=== PATIENT | female | born 1950 | race Caucasian/White ===

== ENCOUNTER → 2017-01-27 | Outpatient (CLI) | payer BC ==
--- NOTE | 2017-01-27 16:01 | ECHOCARDIOGRAM REPORT ---
*NOTICE TO RECEIVING REPUBLICAN AGENCY This information is strictly Confidential and protected under [place] law. [place] law prohibits you from making any further disclosure of this information unless further disclosure is expressly permitted by the written consent of the person to whom it pertains or is authorized by law. A general authorization for the release of medical or other information is not sufficient for this purpose. Hospital accepts no responsibility if the information is made available to any other person, INCLUDING THE PATIENT. Interpretation Summary * Name: LAN TURK Study Date: 01/27/2017 01:57 PM BP: 120/70 mmHg * Patient Location: [facility], [place], [facility] HR: 62 * : 1950 (M/d/yyyy) Gender: Female Height: 62 in * Age: 66 yrs Ethnicity: [place] Weight: 172 lb * Ordering Physician: Mychal Hall * Referring Physician: Mychal Hall. * Performed By: Lucy Arrington RCS * * Reason For Study: VALVULAR HEART DISEASE * BSA: 1.8 m2 * -- Conclusions -- * Left ventricular systolic function is normal. * No regional wall motion abnormalities noted. * Ejection Fraction = 65-70%. * There is mild concentric left ventricular hypertrophy. * Diastolic dysfunction, Grade II (pseudonormalization pattern). * There is mild mitral regurgitation. Procedure Details * A complete two-dimensional transthoracic echocardiogram was performed (2D, M-mode, Doppler and color flow Doppler). Left Ventricle * The left ventricle is normal in size. * There is mild concentric left ventricular hypertrophy. * Left ventricular systolic function is normal. * Ejection Fraction = 65-70%. * No regional wall motion abnormalities noted. Right Ventricle * The right ventricle is not well visualized. * The right ventricular systolic function is normal as assessed by tricuspid annular plane systolic excursion (TAPSE) (normal >1.5 cm). Atria * The left atrial size is normal. * Right atrial size is normal. * There is no evidence of atrial septal defect, but resolution does not allow assessment for a patent foramen ovale. Mitral Valve * The mitral valve is grossly normal. * There is no mitral valve stenosis. * There is mild mitral regurgitation. Tricuspid Valve * The tricuspid valve is not well visualized, but is grossly normal. * Significant tricuspid regurgitation is absent. Aortic Valve * The aortic valve is not well visualized. * The aortic valve opens well. * No hemodynamically significant valvular aortic stenosis. * No aortic regurgitation is present. Pulmonic Valve * The pulmonary valve is not well seen, but the Doppler examination is normal without significant regurgitation or stenosis. Great Vessels * The aortic root is normal size. * The pulmonary is not well visualized. Pericardium/Pleural * There is no pericardial effusion. Great Vessels * Normal inferior vena cava size and collapsability with sniff indicates a normal right atrial pressure of 3 mmHg Left Ventricular Diastolic Function * Diastolic dysfunction, Grade II (pseudonormalization pattern). MMode 2D Measurements and Calculations IVSd 1.7 cm IVSs 2.3 cm LVIDd 3.1 cm LVIDs 2.0 cm LVPWd 1.5 cm LVPWs 1.5 cm IVS/LVPW 1.2 FS 36.7 % EDV(Teich) 37.5 ml ESV(Teich) 12.0 ml EF(Teich) 68.1 % EDV(cubed) 29.4 ml ESV(cubed) 7.4 ml EF(cubed) 74.7 % % IVS thick 35.6 % % LVPW thick 5.7 % LV mass(C)d 178.8 grams LV mass(C)dI 99.7 grams/m\S\2 LV mass(C)s 156.6 grams LV mass(C)sI 87.3 grams/m\S\2 SV(Teich) 25.5 ml SI(Teich) 14.2 ml/m\S\2 SV(cubed) 21.9 ml SI(cubed) 12.2 ml/m\S\2 Ao root diam 4.4 cm Ao root area 15.1 cm\S\2 ACS 1.8 cm LA dimension 2.6 cm LA/Ao 0.60 LVOT diam 2.0 cm LVOT area 3.3 cm\S\2 Doppler Measurements and Calculations MV E max claudia 94.4 cm/sec MV A max claudia 78.7 cm/sec MV E/A 1.2 MV P1/2t max claudia 101.2 cm/sec MV P1/2t 83.7 msec MVA(P1/2t) 2.6 cm\S\2 MV dec slope 354.3 cm/sec\S\2 MV dec time 0.22 sec Ao V2 max 121.2 cm/sec Ao max PG 5.9 mmHg Ao max PG (full) 1.6 mmHg DEBRA(V,A) 2.8 cm\S\2 DEBRA(V,D) 2.8 cm\S\2 LV V1 max PG 4.3 mmHg LV V1 max 103.6 cm/sec PA V2 max 94.2 cm/sec PA max PG 3.5 mmHg TR max claudia 216.6 cm/sec
== END | disposition home or self-care (01) ==
LOC: C.CPL 13:34
PROVIDERS: ATTEND Family Medicine
DX: I34.0 Nonrheumatic mitral (valve) insufficiency (principal); I51.7 Cardiomegaly

== ENCOUNTER 2022-11-18 06:08 | Observation (INO) ==
--- NOTE | 2022-10-16 11:12 | PAT Medication Instructions ---
Medication Instructions Date of Service October 16, 2022 Home Medications Medication Instructions Recorded oxycodone 5 mg tablet 5 mg PO Q6H pain #120 tabs 10/09/22 Wheeled Walker #1 ea 10/13/22 allopurinol 100 mg tablet 100 mg PO HS alprazolam 0.5 mg tablet 0.5 mg PO HS antiarthritic combination no.2 900 mg tablet (glucosamine-chondroitin) 450 mg PO BID ascorbate calcium (vitamin C) 500 mg tablet 500 mg PO QAM atorvastatin 10 mg tablet 10 mg PO Q2D cholecalciferol (vitamin D3) 50 mcg (2,000 unit) tablet 50 mcg PO BID coQ10 (ubiquinol) 200 mg capsule 200 mg PO HS diclofenac sodium 75 mg tablet,delayed release 75 mg PO BID multivitamin 1 tab PO QAM omega-3 fatty acids 1,000 mg capsule (Fish Oil Concentrate) 1,000 mg PO HS soy isofla 56 mg-black cohosh 40 mg-green tea,yerba mate 130 mg tablet ([employer]) 1 tab PO QAM telmisartan 80 mg tablet (Micardis) 80 mg PO HS vitamin B complex (B Complex-Vitamin B12 tablet) 1 tab PO QAM acetaminophen 300 mg-codeine 30 mg tablet 1 tab PO Q4H PRN fluticasone propionate 50 mcg/actuation nasal spray,suspension 2 spray intranasal QAM nebivolol 5 mg tablet 5 mg PO QAM spironolactone 25 mg tablet 25 mg PO UD oxycodone 5 mg tablet 5 mg PO Q6H Wheeled Walker calcium carbonate 750 mg PO QAM indapamide 1.25 mg tablet 1.25 mg PO Q2D iodine 150 mcg tablet (Kelp (iodine)) 150 mcg PO QAM levothyroxine 75 mcg tablet (Synthroid) 75 mcg PO QAM magnesium 250 mg tablet 250 mg PO HS pramipexole 0.25 mg tablet 0.25 mg PO HS Continue as directed atorvastatin 10 mg tablet 10 mg PO Q2D ASK your surgeon for instructions diclofenac sodium 75 mg tablet,delayed release 75 mg PO BID STOP taking 2 weeks before surgery antiarthritic combination no.2 900 mg tablet (glucosamine-chondroitin) 450 mg PO BID coQ10 (ubiquinol) 200 mg capsule 200 mg PO HS omega-3 fatty acids 1,000 mg capsule (Fish Oil Concentrate) 1,000 mg PO HS soy isofla 56 mg-black cohosh 40 mg-green tea,yerba mate 130 mg tablet ([employer]) 1 tab PO QAM DO NOT take the morning of surgery ascorbate calcium (vitamin C) 500 mg tablet 500 mg PO QAM cholecalciferol (vitamin D3) 50 mcg (2,000 unit) tablet 50 mcg PO BID multivitamin 1 tab PO QAM vitamin B complex (B Complex-Vitamin B12 tablet) 1 tab PO QAM spironolactone 25 mg tablet 25 mg PO UD calcium carbonate 750 mg PO QAM indapamide 1.25 mg tablet 1.25 mg PO Q2D Take morning of surgery With a small sip of water, OTHERWISE NOTHING TO EAT OR DRINK AFTER MIDNIGHT: acetaminophen 300 mg-codeine 30 mg tablet 1 tab PO Q4H PRN(if needed) fluticasone propionate 50 mcg/actuation nasal spray,suspension 2 spray intranasal QAM nebivolol 5 mg tablet 5 mg PO QAM oxycodone 5 mg tablet 5 mg PO Q6H iodine 150 mcg tablet (Kelp (iodine)) 150 mcg PO QAM levothyroxine 75 mcg tablet (Synthroid) 75 mcg PO QAM Take evening before surgery allopurinol 100 mg tablet 100 mg PO HS alprazolam 0.5 mg tablet 0.5 mg PO HS cholecalciferol (vitamin D3) 50 mcg (2,000 unit) tablet 50 mcg PO BID telmisartan 80 mg tablet (Micardis) 80 mg PO HS acetaminophen 300 mg-codeine 30 mg tablet 1 tab PO Q4H PRN(if needed) oxycodone 5 mg tablet 5 mg PO Q6H magnesium 250 mg tablet 250 mg PO HS pramipexole 0.25 mg tablet 0.25 mg PO HS Other Notes If you have any questions please call us at [phone] or [phone] or [phone] or [phone]
--- NOTE | 2022-10-22 11:27 | Anesthesiology Consultation ---
Date of Service October 22, 2022 Assessment & Plan (1) Encounter for pre-operative examination: - COVID screening: Per assessment on 10/22: No known COVID-19 positive contacts or current COVID-19 related symptoms. Travel screen negative. Patient vaccinated. At surgeon discretion if preop Covid testing being done. - Outpatient joint assessment: Pt currently scheduled for inpatient pathway. If surgeon requests review for outpatient joint pathway, patient is not recommended candidate for outpatient joint program from anesthesia standpoint. - PCP office visit (10/20/22): "Hyponatremia.. This is multifactorial: I believe that use of diclofenac and the diuretics are aggravating this condition and these will be stopped. In addition the chronic pain is most likely triggering syndrome of inappropriate ADH and will need to be treated more aggressively. I am going to consult nephrology to get further input I will increase her pain medication. However I want her to stop the Tylenol with codeine. I want to begin extended release morphine 10 mg twice daily with oxycodone for breakthrough pain.. Osteoarthritis of right hip.. Hopefully this can be surgically repaired in the next week or 2. I would not repeat labs in less than in 5 days.. Chronic kidney disease (CKD) stage G3a/A3, moderately decreased glomerular filtration rate (GFR) between 45-59 mL/min/1.73 square meter and albuminuria creatinine ratio greater than 300 mg/g.. She has been unable to manage her pain without the use of high-dose diclofenac stopping this will be of benefit.. HTN (hypertension).. She will continue telmisartan 80 mg daily and check her blood pressures at home. I may need to increase the dose of these medications short-term" - Preop labs: Pt is having updated blood work done by PCP to reevaluate hyponatremia. Pt requests doing surgeon-ordered preop labs at same time. Patient acceptable risk for surgery pending preop labs (10/28; [facility] Blue Course). Chart Review Chart Review: Patient seen in Pre Admission Testing Teaching & Discussion Pre-Anesthesia Teaching/Discussion Notes: Instructed NPO after midnight before surgery,except medications with 15 cc of water. Medication instructions provided according to the PAT guidelines. History Surgery Operation Date: 11/18/22 09:05 Proposed Procedures p Right Total Hip Arthroplasty - Florentin Jordan MD Height/Weight Height: 5 ft 2 in Weight: 77.5 kg Allergies Allergy/AdvReac Type Severity Reaction Status Date / Time ciprofloxacin Allergy myalgia Verified 10/20/22 13:33 Penicillins Allergy Anaphylaxis Verified 10/20/22 13:33 Erwyusb-ROS-AqY Reductase AdvReac muscle Verified 10/20/22 13:33 Inhibitor aches Medications Home Medications Medication Instructions Recorded Confirmed Last Taken allopurinol 100 mg tablet 100 mg PO HS 03/25/20 10/20/22 Unknown alprazolam 0.5 mg tablet 0.5 mg PO HS 03/25/20 10/20/22 Unknown antiarthritic combination no.2 900 450 mg PO BID 03/25/20 10/20/22 Unknown mg tablet (glucosamine-chondroitin) ascorbate calcium (vitamin C) 500 500 mg PO QAM 03/25/20 10/20/22 Unknown mg tablet atorvastatin 10 mg tablet 10 mg PO Q2D 03/25/20 10/20/22 Unknown cholecalciferol (vitamin D3) 50 50 mcg PO BID 03/25/20 10/20/22 Unknown mcg (2,000 unit) tablet coQ10 (ubiquinol) 200 mg capsule 200 mg PO 03/25/20 10/20/22 Unknown diclofenac sodium 75 mg 75 mg PO BID 03/25/20 10/20/22 Unknown tablet,delayed release multivitamin 1 tab PO M 03/25/20 10/20/22 Unknown omega-3 fatty acids 1,000 mg 1,000 mg PO 03/25/20 10/20/22 Unknown capsule (Fish Oil Concentrate) soy isofla 56 mg-black cohosh 40 1 tab PO [facility] 03/25/20 10/20/22 Unknown mg-green tea,yerba mate 130 mg tablet ([employer]) telmisartan 80 mg tablet (Micardis) 80 mg PO 03/25/20 10/20/22 Unknown vitamin B complex (B 1 tab PO QAM 03/25/20 10/16/22 Unknown Complex-Vitamin B12 tablet) fluticasone propionate 50 2 spray intranasal [facility] 07/06/22 10/20/22 Unknown mcg/actuation nasal spray,suspension nebivolol 5 mg tablet 5 mg PO QAM 07/06/22 10/16/22 Unknown spironolactone 25 mg tablet 25 mg PO UD 07/06/22 10/20/22 Unknown oxycodone 5 mg tablet 5 mg PO Q6H pain #120 tabs 10/09/22 10/20/22 Unknown Wheeled Walker #1 ea 10/13/22 10/13/22 Unknown calcium carbonate 750 mg PO QAM 10/16/22 10/20/22 Unknown indapamide 1.25 mg tablet 1.25 mg PO Q2D 10/16/22 10/20/22 Unknown iodine 150 mcg tablet (Kelp 150 mcg PO QAM 10/16/22 10/20/22 Unknown (iodine)) levothyroxine 75 mcg tablet 75 mcg PO QAM 10/16/22 10/20/22 Unknown (Synthroid) magnesium 250 mg tablet 250 mg PO HS 10/16/22 10/20/22 Unknown pramipexole 0.25 mg tablet 0.25 mg PO HS 10/16/22 10/20/22 Unknown morphine 10 mg capsule,extended 10 mg PO Q12H #30 caps 10/20/22 10/20/22 Unknown release pellets furosemide 20 mg tablet 20 mg PO DAILY #30 tabs 10/21/22 10/21/22 Unknown Past Medical History Medical History Arthritis of right hip Basal cell carcinoma Chronic kidney disease, stage 3 Gout HTN (hypertension) Hx of migraines prior to menopause Hypercholesteremia Hyponatremia Hypothyroidism Lumbar stenosis with neurogenic claudication Severe at L4-5 Exercise / Class Metabolic Activity III < 4 Walking/Shop/Light housework Past Family History Family History Brother Myocardial infarction Hypertension Smoker Grandmother (Maternal) Diabetes Father Hypertension Cancer bladder Stroke Myocardial infarction Mother Hypertension Asthma Congestive heart failure Myocardial infarction Sister Hypertension Eczema Denies family history of Ovarian cancer Prostate cancer Breast cancer Colorectal cancer Past Surgical History Surgical History History of section Hx of colonoscopy Hx of laparoscopy for tx endometriosis S/P Mohs surgery for basal cell carcinoma Past Anesthesia History No Hx of Anesthesia Complications and No Family Hx of Anesthesia Complications History of PONV No Hx of PONV and No Hx of Motion Sickness Social History Smoking Status: Never smoker Do You Dip or Chew Tobacco: No Hx Alcohol Use: No Hx Substance Use: No substance use type: does not use Review of Systems Occasional palpitations (s/p unremarkable workup per pt). Patient denies chest pain, shortness of breath, fever, chills, cough, wheezing. Physical Exam Vital Signs VITALS BP 123/74 P 66 TEMP 98.3 SP02 98%RA RESP 16 PHYSICAL Full cervical extension range of motion. Full TMJ range of motion. TMD 3 finger breaths Mallampati Score 2 Dentition: missing molars, + crowns Lungs: clear throughout to auscultation Cardiac: regular rate and rhythm, II/ systolic murmur Spine: normal Carotid arteries: negative bruit Extremities: no edema Testing Electrocardiogram Date: 10/22/22 NSR at 62bpm. iRBBB. unconfirmed report. Chest X-Ray Date: 10/22/22 FINDINGS: The cardiomediastinal and hilar silhouettes are within normal limits. Linear subsegmental midlung opacities suggestive of atelectasis versus scarring without pneumothorax, pleural effusion, lobar airspace consolidation or overt pulmonary edema. 10 mm right basilar nodule suggestive of a calcified granuloma. Degenerative changes of the shoulders and spine. IMPRESSION: No acute processes of the chest. 10 mm nodular density of the right lung base may represent a calcified granuloma. *CXR findings forwarded to PCP for continuity of care* Echocardiogram Date: 04/21/21 LVEF > 70%. No RWMA. No significant systolic anterior motion. Mild concentric LVH. No significant diastolic dysfunction. Normal estimated PA and RA pressures. Compared with prior study 01/27/2017, no significant changes per report. COVID-19 Risk Screen Screening Information COVID-19 Screen Date: 10/22/22 Exposure 21 Days Family/Household +COVID Last 21 Days: No Exposure 10 Days Any COVID Exposure Last 10 Days: No Symptoms Last 10 Days Experienced COVID Sx Last 10 Days: No + COVID 0-90 Days COVID + in Last 0-90 Days: No
--- NOTE | 2022-11-14 14:21 | History and Physical Report ---
CHIEF COMPLAINT: Persistent and progressive right hip pain and discomfort. HISTORY OF PRESENT ILLNESS: The patient is a 72-year-old female who presents for surgical treatment of her right hip. She has a history of right hip pain and discomfort, has got markedly worse over past several months. I saw her back in November. X-ray showed hip arthritis. She is also having some back symptoms managed by the pain clinic. She has had some electrolyte and fluid issues that jameson ve been sorted out over time. She has developed an increasing progressive hip pain and discomfort ov er the past several months. X-rays show collapse of the femoral head. She has become wheelchair devin nd. She is now seeking definitive treatment/hip replacement surgery. Due to her inactivity, she dev eloped some edema in her lower extremities. She has been evaluated by her primary care doctor, Dr. Salvatore millan and medically optimized. She would like to have her hip fixed. Based on her x-rays, I was c oncerned about her hip and knee infection. We did have an aspirate, which only showed 45 white cells and the cultures were no growth. No signs of intra-articular hip injection. PAST MEDICAL HISTORY: Significant for: 1. Hyponatremia, now corrected. 2. Hypertension. 3. Elevated cholesterol. 4. Heart palpitations. 5. Hypothyroidism. 6. Sciatica. 7. Basal cell skin cancer. PAST SURGICAL HISTORY: Includes: 1. Laparoscopy. 2. . 3. Mohs surgery for skin cancer. ALLERGIES: PENICILLIN 30 years ago. CURRENT MEDICATIONS: Include: 1. Micardis. 2. Nebivolol. 3. Spironolactone. 4. Indapamide. 5. Atorvastatin. 6. Diclofenac. 7. Tylenol. 8. Oxycodone 3 a day. 9. Synthroid. 10. Allopurinol. 12. Flonase. 13. Alprazolam. 14. Pramipexole. 15. Multivitamins. SOCIAL HISTORY: A 72-year-old female who lives by herself. Does not smoke. FAMILY HISTORY: Noncontributory. REVIEW OF SYSTEMS: Negative for diabetes, neurologic problem, vascular problem, or bleeding disorder . No chest pain or shortness of breath. No history of DVT or PE. There are no known bleeding probl ems. She does have evidence of peripheral edema. PHYSICAL EXAMINATION: GENERAL: Shows a pleasant, elderly female. She attends clinic in a wheelchair. HEENT: Benign. NECK: Supple. No lymphadenopathy. LUNGS: Clear to auscultation. HEART: Has a regular rate and rhythm. ABDOMEN: Soft, nontender, nondistended. EXTREMITIES: Grossly neurovascularly intact except as follows. Examination of the right leg reveals the patient has difficulty walking even with a walker. She is a t least a centimeter or two short on the right side compared to left. She has got pain with any type of hip motion. She had a pretty good rotation, but it is painful. Not particularly stiff. Negativ e straight leg raise. Diffuse mild to moderate edema. X-RAYS: X-rays of the hip were reviewed. It shows advanced right hip arthritis. She has marked col lapse of her hip joint since the films in 11/2021. She has got osteoporosis. 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 Femoral head was completely jesus apsed. We did do a workup, which showed slightly elevated sed rate and C-reactive protein. She had her hip aspirated, which showed no signs of infection. She would now like to proceed with total hip replacement. PLAN: We talked about treatment options. We are going to proceed with hip replacement. I did have her hip aspirated to make sure there is no infection and white cell count was only 45 white cells wit h 30% polys. We will proceed with likely a cemented/hybrid total hip arthroplasty due to osteoporosi s. We may need medical management. She is planning on going home and having some friends and her br [id number] assist in her care. I encouraged her to limit her narcotic use preoperati velelvis. She will follow up with us 2 weeks postop. Job ID: [id number]
[~2022-11-18 06:08] MED LIST: ACETAMINOPHEN 500 MG TAB PO SCH; ALLERGY Noted to ORDERED Medication SCH; CeleBREX 200 MG CAP PO SCH; FAMOTIDINE 20 MG TAB PO SCH; LR 500ML BOLUS, THEN 15ML/HR IV SCH; LR 60ML/HR IV SCH; METOCLOPRAMIDE HCL 10 MG TABLET PO SCH; TRANEXAMIC ACID 1,000 MG **IV Pre-op IV SCH
[2022-11-18] MEDS ORDERED: BUPIVACAINE 0.5 % 5 MG/1 ML PF 10ML VIAL ONE (06:30)
--- NOTE | 2022-11-18 06:54 | History & Physical Bridge Note ---
Date of Service November 18, 2022 History & Physical Bridge Note I have examined the patient, reviewed the History & Physical and in the interval since the performance of the History & Physical I have noted the following changes of clinical significance: no changes noted
[2022-11-18] MEDS ORDERED: ceFAZolin 2,000 MG/15 ML IV PUSH IV ONE (07:16)
[2022-11-18] MEDS ORDERED: Nursing to Pharmacy Communication SCH (07:30)
[2022-11-18] MEDS ORDERED: MIDAZOLAM HCL 1 MG/ML 2ML VIAL ONE ×2 (07:45)
[2022-11-18] MEDS ORDERED: PROPOFOL IV EMULSION 10 MG/ML 20 ML VIAL IV ONE (07:45)
[2022-11-18] MEDS ORDERED: MoRPHine SULFATE PF 1 MG/ML 10 ML AMP/VIAL ONE (08:23)
[2022-11-18] MEDS ORDERED: VANCOMYCIN HCL 1000MG/20ML VIAL ONE (08:53)
[2022-11-18] MEDS ORDERED: BUPIVACAINE/EPINEPHRINE 0.25% 1:200,000 30 ML VIAL ONE (08:53)
[2022-11-18] MEDS ORDERED: BUPIVACAINE/EPINEPHRINE 0.5% MPF 1:200,000 30 ML VIAL ONE (09:01)
[2022-11-18] MEDS ORDERED: ePHEDrine sulfate 50 MG/ML AMP ONE (09:26)
[2022-11-18] MEDS ORDERED: PHENYLEPHRINE 100MCG/ML 5ML SYR ONE (10:08)
[2022-11-18] MEDS ORDERED: NALOXONE HCL 0.08 MG in SYRINGE 1.8 ML IV PRN (11:08)
[2022-11-18] MEDS ORDERED: ONDANSETRON INJ 2 MG/ML 2 ML VIAL IV PRN ×2 (11:08→12:22)
[2022-11-18] MEDS ORDERED: MEPERIDINE HCL 25 MG/ML CARP/VIAL IV PRN (11:08)
[2022-11-18] MEDS ORDERED: MoRPHine SULFATE PF 1 MG/ML 10 ML AMP/VIAL INT SPINAL ONE (11:08)
[2022-11-18] MEDS ORDERED: NALBUPHINE HCL INJ 10 MG/ML AMP IV PRN (11:08)
[2022-11-18] MEDS ORDERED: LACTATED RINGER'S 500 ML IV PRN (11:08)
[2022-11-18] MEDS ORDERED: NALOXONE HCL 1 MG in SODIUM CHLORIDE 0.9% 1000ML 1,000 ML IV PRN (11:08)
[2022-11-18] MEDS ORDERED: NALOXONE HCL 0.4 MG/1 ML VIAL/CARP IV PRN ×2 (11:08→12:22)
[2022-11-18] MEDS ORDERED: diphenhydrAMINE 50 MG/ML VIAL IV PRN (11:08)
[2022-11-18] MEDS ORDERED: ePHEDrine sulfate 50 MG/ML AMP IV PRN (11:08)
[2022-11-18] MEDS ORDERED: SODIUM CHLORIDE 0.9% 1000ML 1,000 ML IV SCH (11:15)
[2022-11-18] MEDS ORDERED: NO NARCOTICS OR SEDATIVES SCH (11:15)
--- NOTE | 2022-11-18 12:02 | XRay Report ---
AP PELVIS, CROSSTABLE LATERAL RIGHT HIP History: Right total hip arthroplasty. Degenerative arthritis. Postop. FINDINGS: The patient is status post a right total hip arthroplasty. The hardware is intact. No fract ure or dislocation. Skin roberto are in place. IMPRESSION: Right total hip arthroplasty. No evidence for hardware complication ACT 112: Negative or not required by law. Electronically signed by: Memo Lozada M.D. 11/18/2022 11:25 AM
[2022-11-18] MEDS ORDERED: MAGNESIUM HYDROXIDE SUSP 30 ML UDC PO PRN (12:22)
[2022-11-18] MEDS ORDERED: bisacodyL 10 MG SUPP PR PRN (12:22)
[2022-11-18] MEDS ORDERED: ALUMINUM/MAGNESIUM SUSP 30 ML UDC PO PRN (12:22)
--- NOTE | 2022-11-18 12:36 | Operative Report ---
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 Postop diagnosis severe right hip DJD secondary to avascular necrosis I identified the patient and participated in the time-out.: Yes Procedure Operation Date: 11/18/22 08:50 Right hybrid total hip arthroplasty Surgeon Florentin Jordan MD [employer] Process Technician Kelvin Potts PA-C Estimated Blood Loss 200 Findings Consistent with Post-Op Diagnosis Operative findings were advanced right hip DJD. She had complete collapse of the femoral head. She had destruction of the acetabulum. A lot of scarring and fibrinous debris in the acetabulum around the femoral head. Moderate-sized joint effusion. Diffuse osteopenia. Fluids 1100 cc Specimens Right femoral head sent for pathology Anesthesia Type Spinal MAC Complications none Disposition Accompanied Patient To Recovery: No Indications Patient is 72-year-old female has had a several year history of increased right hip pain discomfort got markedly worse over the past 6 months. X-rays show marked progression of her hip arthritis with collapse of the femoral head. She was essentially wheelchair-bound. She elected proceed with surgical treatment. The patient was medically optimized preoperatively. Description of Procedure Operative implants consist of: 1 Biomet G7 size 48 mm acetabular shell. 2. Mira Loma hole functional tester typewriters. 3. 6.5 cancellous acetabular screws 1 of 35 mm length and 1 of 30 mm length. 4. Highly cross-linked polyethylene liner with a 48 mm outer diameter 32 mm inner diam with a waite placed inferior and posterior. 5. DePuy cemented Schertz size 2 standard offset femoral stem. 6. +5/32 mm ceramic articular ball. The patient was taken the operating, identified, placed on the operating table supine position protectors were properly padded. IV antibiotics tried by anesthesia team. A spinal anesthetic and been implemented holding area. Burton catheter was placed in sterile fashion. Patient then placed in the right lateral decubitus position. Axillary roll was placed. Stulberg hip positioner was used for positioning. Right hip and leg were then prepped and draped in usual sterile fashion. A posterolateral approach to the right hip was then performed through a curvilinear incision centered over the greater trochanter. Sharp dissection Through subcutaneous is down below the IT band gluteal fascia. The IT band gluteal fascia incised longitudinally in line with skin incision. Greater bursa was excised. The piriformis and external rotators as well as the posterior hip joint capsule were then released from the posterior aspect hip as a single layer. Hip was internally rotated and dislocated. Femoral neck osteotomy cut was made with Final Cut 10 mm above the lesser trochanter. Femoral head was removed and sent for pathology. The femur was retracted anteriorly. Attention drawn the acetabulum. The acetabular labrum was excised. There was significant destruction of the superior posterior domes of the acetabulum. There was calcification of the labrum which was removed. There was a lot of necrotic chondral debris in the acetabular which was removed. Sequential reaming the acetabular was then performed begin with size 41 progressing up to 47. I reamed a little with a 48 reamer and then placed a 48 mm cup. The had pretty good coverage. Excellent fit anterior and posterior. I then fixed this with two 6.5 cancellous acetabular screws. A trial liner was placed. Attention drawn the femur. The proximal femur was entered with a cookie cutter followed by canal finder and lateralizing reamer. I then broached begin the size 1. I could not get the to the way down. We then trialed the hip and the +5 articular ball seem recreate soft tissue tension and stability appropriately and leg lengths equal. We elect to place these implants. I did elect to place a waite inferior and posterior to maximize her stability in flexion due to her deficient posterior wall and posterior capsule structures. All trial implants were removed. Mira Loma hole functional tester typewriters was placed but highly cross-linked polyethylene liner was placed with a waite inferior and posterior. 2 packs of Palacos G cement was then mixed with additional gram of vancomycin. This is injected in the canal and a size 2 Schertz cemented standard offset femoral stem was placed. All extraneous cement was removed. Once the cement hardened +5/32 mm ceramic articular ball was placed. Hip was located and found to be stable. Attention drawn to closing. Wound was irrigated scope amounts of pulsatile lavage solution. I did inject locally with 60 cc of absent Marcaine with epinephrine. Posterior capsule and external rotators were repaired as a single layer through drill holes in the posterior trochanter with #2 Tycron suture. The IT band gluteal fascia then closed in 1 PDS suture in a running fashion. The subcutaneous tissues were closed in 2 layers with a deep layer #1 Vicryl suture and subcutaneous tissues with 2-0 Dexon suture in a buried interrupted fashion. Skin was closed skin roberto. Leg was then cleaned and dried and a sterile dressing composed of a Prevena VAC dressing were applied. The patient was then transferred to the recovery room in stable condition. The patient tolerated procedure well and there are no complications. Kelvin Potts, my physician assistant store manager, was present for the entire procedure. His assistance was essential and required for appropriate patient positioning, prepping and draping, surgical exposure, performing the technical details of the operation, placement the implants, closure of the wound, and placement of the sterile bandage. I attest to the content of the Intraoperative Record and any orders documented therein. Any exceptions are noted below.
--- NOTE | 2022-11-18 12:42 | Anesthesiology Progress Note ---
Date of Service November 18, 2022 Anesthesia Post Procedure Vital Signs Vital Signs: Temp Pulse Resp BP Pulse Ox O2 Del Method O2 Flow Rate 11/18/22 11:40 97.5 F L 61 16 118/61 96 Room Air 11/18/22 11:30 75 16 122/71 97 Room Air 11/18/22 10:51 97.0 F L 80 17 105/57 L 99 Oxymask 5 11/18/22 11:20 71 18 121/61 98 Oxymask 5 11/18/22 11:10 97.0 F L 80 18 105/57 L 98 Oxymask 5 11/18/22 07:01 97.9 F 72 20 211/103 H 97 Room Air Transfer of Care Handoff Completed per policy Notes Mental Status: alert / awake / arousable and participated in evaluation Patient Amnestic to Procedure: Yes Nausea / Vomiting: adequately controlled Pain: adequately controlled Airway Patency, RR, SpO2: stable & adequate BP & HR: stable & adequate Hydration State: stable & adequate Neuraxial Anesthesia: was administered and sensory block is resolving Anesthetic Complications: no major complications apparent and Pt Satisfied with anesthetic care
[2022-11-18] MEDS: SODIUM CHLORIDE 0.9% 1000ML 1,000 ML IV SCH ×2 (13:13→23:32)
[2022-11-18] MEDS: ACETAMINOPHEN 500 MG TAB PO SCH ×2 (14:25→21:50)
[2022-11-18] MEDS ORDERED: TRANEXAMIC ACID / 0.7% NACL 1,000 MG/100 ML BAG IV SCH (17:15)
[2022-11-18] MEDS: ASCORBIC ACID 500 MG TAB PO SCH (17:20)
[2022-11-18] MEDS: ceFAZolin 1000MG 1,000 MG/7.5 ML SYR IV SCH (17:30)
[2022-11-18] MEDS ORDERED: PRAMIPEXOLE DIHYDROCHLO 0.25 MG TAB PO SCH (19:00)
[2022-11-18] MEDS: ASPIRIN 81 MG ECTAB PO SCH (20:18)
[2022-11-18] MEDS: CHOLECALCIFEROL 1,000 UNITS 25 MCG TAB PO SCH (20:18)
[2022-11-18] MEDS: DOCUSATE SODIUM 100 MG CAP PO SCH (20:19)
[2022-11-18] MEDS ORDERED: OMEGA-3 (PURIFIED FISH OIL) 1 GM CAP PO SCH (21:00)
[2022-11-18] MEDS ORDERED: SENNA 8.6 MG TAB PO SCH (21:00)
[2022-11-18] MEDS ORDERED: MAGNESIUM OXIDE 400 MG TAB PO SCH (21:00)
[2022-11-18] MEDS ORDERED: allopurinoL 100 MG TAB PO SCH (21:00)
[2022-11-18] MEDS ORDERED: TELMISARTAN 40 MG TAB PO SCH (21:00)
[2022-11-19] MEDS: ceFAZolin 1000MG 1,000 MG/7.5 ML SYR IV SCH (01:09)
[2022-11-19] MEDS ORDERED: DC INTRASPINAL MORPHINE SCH (05:08)
[2022-11-19] MEDS ORDERED: HYDROmorphone INJ 0.5 MG/0.5 ML SYR IV PRN (05:08)
[2022-11-19] MEDS ORDERED: oxyCODONE HCL IR 5 MG TAB (IMMEDIATE RELEASE) PO PRN (05:08)
[2022-11-19] MEDS ORDERED: METOCLOPRAMIDE HCL INJ 5 MG/ML 2 ML VIAL IV PRN (05:08)
[2022-11-19] MEDS: ACETAMINOPHEN 500 MG TAB PO SCH ×2 (05:19→13:45)
[2022-11-19] MEDS: KETOROLAC TROMETHAMINE 15 MG/ML VIAL IV SCH ×2 (05:20→11:19)
[2022-11-19] MEDS ORDERED: LEVOTHYROXINE SODIUM 75 MCG TABLET PO SCH (06:30)
[2022-11-19] MEDS ORDERED: dexAMETHasone 10 MG in SYRINGE 0 ML IV SCH (08:00)
[2022-11-19 08:44] LABS: BUN Creatinine Ratio 20.7 (10-20); Calcium 9.5 mg/dl (8.5-10.1); Creatinine Clr Calc Pharmacy 54.4 ml/min; Est GFR (African American) 76.1 ml/min; Est GFR (Non-African American) 65.6 ml/min
[2022-11-19] MEDS ORDERED: MULTIVITAMIN TAB PO SCH (09:00)
[2022-11-19] MEDS ORDERED: FUROSEMIDE 20 MG TAB PO SCH (09:00)
[2022-11-19] MEDS ORDERED: FLUTICASONE PROPIONATE NA SPR 16 GM BTL NAE SCH (09:00)
[2022-11-19] MEDS ORDERED: CALCIUM 600MG + VIT D 400 IU TAB PO SCH (09:00)
[2022-11-19] MEDS ORDERED: DOCUSATE SODIUM/SENNA 50/8.6MG TAB PO SCH (09:00)
[2022-11-19] MEDS ORDERED: NON-FORMULARY MEDICATION (Multivitamin tablet) PO SCH (09:00)
[2022-11-19] MEDS ORDERED: METOPROLOL TARTRATE 25 MG TAB PO SCH (09:00)
[2022-11-19] MEDS ORDERED: [UNRECOGNIZED DRUG - MIXTURE] PO SCH (09:00)
[2022-11-19] MEDS ORDERED: ATORVASTATIN 10 MG TAB PO SCH (09:00)
[2022-11-19] MEDS ORDERED: IODINE 150 MCG PO SCH (09:00)
[2022-11-19] MEDS ORDERED: VITAMIN B COMPLEX TAB PO SCH (09:00)
[2022-11-19 09:29] LABS: Basophils # (auto) 0.02 K/uL (0-0.2); Basophils % (auto) 0.2 %; Eosinophils # (auto) 0.13 K/uL (0-0.50); Eosinophils % (auto) 1.3 %; Hematocrit (blood only) 31.9 % (37.0-47.0); Hemoglobin 10.7 g/dl (12.0-16.0); Immature Granulocytes # (auto) 0.04 K/uL (0.01-0.20); Immature Granulocytes % (auto) 0.4 %; Lymphocytes # (auto) 1.01 K/uL (1.2-3.4); Lymphocytes % (auto) 10.4 %; Mean Corpuscular Hemoglobin 30.5 pg (25.0-34.0); Mean Corpuscular Hgb Conc 33.5 g/dL (32.0-36.0); Mean Corpuscular Volume 90.9 fL (80.0-100.0); Mean Platelet Volume 9.7 fL (9.4-12.4); Monocytes % (auto) 7.2 %; Neutrophils # (auto) 7.82 K/uL (1.40-6.50); Neutrophils % (auto) 80.5 %; Platelet Count 270 K/uL (130-400); RDW Coefficient of Variation 12.8 % (11.5-14.5); RDW Standard Deviation 42.2 fL (36.4-46.3); Red Blood Count 3.51 M/uL (4.20-5.40); White Blood Count 9.72 K/ul (4.8-10.8)
[2022-11-19] MEDS: ASCORBIC ACID 500 MG TAB PO SCH (10:17)
[2022-11-19] MEDS: ASPIRIN 81 MG ECTAB PO SCH (10:18)
[2022-11-19] MEDS: CHOLECALCIFEROL 1,000 UNITS 25 MCG TAB PO SCH (10:18)
[2022-11-19] MEDS: DOCUSATE SODIUM 100 MG CAP PO SCH (10:18)
--- NOTE | 2022-11-19 13:45 | Progress Notes ---
DATE OF SERVICE: 11/19/2022 SUBJECTIVE: A 72-year-old female postoperative day 1 from a right hybrid total hip replacement. She is doing pretty well. Therapy went pretty well. No chest pain or shortness of breath. Not feeling dizzy or lightheaded. She is hoping to go home. OBJECTIVE: VITAL SIGNS: Temperature 36.3. Vital signs are stable. PHYSICAL EXAMINATION: GENERAL: Physical exam shows a pleasant middle-aged female. She was sitting up in her bedside chair when I visited her this morning. She looks comfortable. LUNGS: Clear to auscultation. HEART: Regular rate and rhythm. ABDOMEN: Soft, nontender, and nondistended. EXTREMITIES: Grossly neurovascularly intact except as follows. Examination of the right leg and hip reveals the Prevena VAC dressing to be in place. Leg lengths ar e equal. Hip is located. She can dorsiflex and plantarflex her foot appropriately. She is neurolog ically intact. LABORATORY DATA: Hemoglobin 10.7. Hematocrit 31.9. Electrolytes are stable. ASSESSMENT: A 72-year-old female postoperative day 1 from a right hybrid total hip replacement. She is doing pretty well. Pain is controlled. Hip is located. She is neurologically intact. She real ly did not get around much before this surgery and likely getting around better now than she was then . PLAN: 1. DVT prophylaxis to include thigh-high TEDs, SCDs, and aspirin twice a day. 2. PT/OT and weightbear as tolerated. Right total hip protocol. 3. Pain control: Doing okay with current pain regimen. 4. Wound care: She has got a Prevena VAC dressing in place. She will leave that on for 7 days. [facility] can help manage it. 5. Disposition: Plan to discharge to home with some home health likely later today. Job ID: [id number]
[2022-11-19] MEDS ORDERED: ALPRAZolam 0.5 MG TABLET PO SCH (21:00)
--- NOTE | 2022-11-22 13:50 | Discharge Summary ---
Date of Service November 22, 2022 Discharge Data Procedures Performed Operation Date: 11/18/22 08:50 Actual Procedures p Right Total Hip Arthroplasty - Florentin Jordan MD Hospital Course (1) S/P total right hip arthroplasty: This is a 72 year old patient admitted on 11/18/22 and underwent total hip arthroplasty. She tolerated the procedure well and there were no complications. Transferred to the PACU post op and later to the orthopedic floor for further care. She was given ancef for antibiotic prophylaxis. She was also given SULEMA stockings, SCDs, and aspirin for DVT prophylaxis. Hemoglobin, hematocrit, and vital signs were monitored during her hospital stay and remained stable. Did not require any blood transfusions. There were no complications during her hospital stay. By post op day #1 the patient was tolerating a regular diet, pain was reasonably controlled with oral pain medicine, and she was participating in physical therapy. On post op day #1 the patient was discharged home and set up with home health care. She was given printed discharge instructions including prescriptions for extra strength tylenol, aspirin, cefadroxil, ketorolac, zofran, senokot, and oxycodone. Continue physical therapy, weight bearing as tolerated. Continue SULEMA stockings. Continue hip precautions. Follow up approximately 2 weeks post op or sooner if there are problems or concerns. Coding Level of Care Code None Diagnoses S/P total right hip arthroplasty Z96.641
== END 2022-11-19 16:11 | disposition home health service (06) ==
LOC: ASU 06:08 → 3W 06:08
DX: E87.1 Hypo-osmolality and hyponatremia; R60.0 Localized edema; Z88.1 Allergy status to other antibiotic agents; Z88.0 Allergy status to penicillin; M16.11 Unilateral primary osteoarthritis, right hip; M65.9 Synovitis and tenosynovitis, unspecified; M85.88 Other specified disorders of bone density and structure, other site; M25.451 Effusion, right hip; Z79.899 Other long term (current) drug therapy; E03.9 Hypothyroidism, unspecified; Z79.890 Hormone replacement therapy; Z79.82 Long term (current) use of aspirin; Z20.822 Contact with and (suspected) exposure to COVID-19; Z88.8 Allergy status to other drugs, medicaments and biological substances; Z99.3 Dependence on wheelchair; I10 Essential (primary) hypertension; R00.2 Palpitations; E78.00 Pure hypercholesterolemia, unspecified

== ENCOUNTER 2024-06-21 18:46 | Inpatient (IN) ==
--- NOTE | 2024-06-21 18:51 | Emergency Department Note ---
Impression & Plan Perforated bowel ADMIT ED Provider Note HPI: History obtained from patient. The patient is a 74-year-old female who presents the emergency department with a chief complaint of abdominal pain, shortness of breath, and lightheadedness. Patient states she experienced the symptoms intermittently throughout the day today. Patient states that her abdominal pain seem to get worse in the evening and therefore she contacted 911 for evaluation. On arrival here to the ED the patient is mildly hypotensive, she reportedly was hypotensive in the 60s systolic in the field and was given an IV fluid bolus with good improvement into the 90s. Patient is otherwise alert and she is stable on nasal cannula oxygen on arrival. Patient denies any chest pain, she denies any rectal bleeding. Patient states she has had some element of abdominal pain since yesterday when she had her colonoscopy. ROS: - Per HPI Differential Diagnosis: Perforated viscus, sepsis, small bowel obstruction, pneumonia, acute coronary syndrome, pulmonary embolism, acute dehydration/acute kidney injury, amongst other potential pathologies. *Outpatient medications and allergy history reviewed. 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 Patient was noted to have some hypoxia on room air at 88% shortly after arrival and therefore was placed on nasal cannula oxygen with good improvement. Lab work shows no leukocytosis, hemoglobin is stable at 10.1, platelet count is slightly elevated at 425, CMP does not show any evidence of any critical findings aside from acute kidney injury with creatinine of 3.98 and BUN of 53. Patient's baseline creatinine is around 1.6. Patient did become more hypotensive while here in the ED down to 80 systolic, she was given additional IV fluids with good improvement in her blood pressure. On my reassessment the patient's pressures greater than 100 systolic and she is alert. Chest x-ray per my interpretation does not show any evidence of any obvious pneumonia. CT imaging of the abdomen pelvis without contrast was obtained and does show evidence of free air concerning for colon perforation status post colonoscopy. Patient was started on IV antibiotics, I discussed the patient's presentation with the on-call surgery midlevel provider, Rodríguez Chacon PA-C, and the patient was assessed at the bedside. Following this assessment the patient was staffed by the midlevel provider with the general surgeon, Dr. Rizzo, and decision was made to transfer the patient to the operating room for definitive care. I did also discuss the patient's presentation with on-call gastroenterology, Dr. Robison, we did perform the colonoscopy yesterday. He noted the patient did have some ulcerative disease in the right side of the colon that was noted during the procedure yesterday. Patient appeared well prior to transfer, she was in agreement to this plan and she was transferred to the operating room in stable condition for further management. Consultants/Discussions held with other healthcare providers: -General Surgery, Dr. Rizzo/Rodríguez Chacon PA-C -Gastroenterology, Dr. Robison Disposition discussion held by myself with: -Patient and patient's car pusher at the bedside * CRITICAL CARE TIME: ( 45 ) minutes -Management of patient with acute hypotension status post perforated viscus in the setting of recent colonoscopy requiring aggressive IV fluid resuscitation and initiation of IV antibiotics, time spent at bedside, interpretation of diagnostic studies, discussion with other healthcare providers including interpreting radiologist and general surgery midlevel provider as well as gastroenterology, arrangement of disposition/transfer to the operating room for emergent surgical repair of perforated viscus. Management of patient with hypoxia at 88% on room air requiring nasal cannula oxygen for correction/stabilization. Diagnosis: 1. Intra-abdominal free air/pneumoperitoneum, acute 2. Hypotension, acute 3. Acute kidney injury 4. Hyponatremia, acute 5. Anemia, chronic, stable 6. Hypoxia, acute, nonspecific Disposition: Admission Allen Guerrero DO Emergency Medicine Past Med/Surg History Problem List (Updated 06/21/24 @ 21:44 by Allen Guerrero DO) Perforated bowel (Acute) Free intraperitoneal air Uterine mass Adrenal mass 1 cm to 4 cm in diameter Arthrofibrosis of left hip joint Abnormal CT scan Hip arthritis Colonic mass Abnormal colonoscopy Positive colorectal cancer screening using Cologuard test Positive colorectal cancer screening using Cologuard test Hyperparathyroidism UTI (urinary tract infection) Neuropathy Hyponatremia Anemia S/P total right hip arthroplasty Impaired glucose metabolism Grade II diastolic dysfunction Periodic limb movement disorder (PLMD) Chronic kidney disease (CKD) stage G3a/A3, moderately decreased glomerular filtration rate (GFR) between 45-59 mL/min/1.73 square meter and albuminuria creatinine ratio greater than 300 mg/g Hyperlipidemia Lumbar stenosis with neurogenic claudication Severe at L4-5 Gout Hypothyroidism HTN (hypertension) Medical History Osteoarthritis Positive colorectal cancer screening using Cologuard test Neuropathy to see [facility] Neurology 06/2024 (new patient) Anemia History of COVID-19 06/2023: mild flu symptoms. Lumbar stenosis severe L4-L5. has had epidural steroid injections and physical therapy Hyperparathyroidism pt unsure of details Hypothyroidism Hyperlipidemia Hypertension Hx of gout never had symptoms, had elevated uric acid levels. Hx of basal cell carcinoma Chronic kidney disease, stage 3 to see [facility] Nephrology 05/2024 (as a new patient) Hx of migraines prior to menopause Surgical History S/P epidural steroid injection History of right hip replacement Hx of laparoscopy for tx endometriosis Hx of colonoscopy S/P Mohs surgery for basal cell carcinoma History of section Family History Brother Myocardial infarction Hypertension Smoker Grandmother (Maternal) Diabetes Father Hypertension Cancer bladder Stroke Myocardial infarction Mother Hypertension Asthma Congestive heart failure Myocardial infarction Sister Hypertension Eczema Denies family history of Ovarian cancer Prostate cancer Breast cancer Colorectal cancer Social History Smoking Status: Never smoker Second Hand Exposure: Yes (growing up until age 16); Do You Dip or Chew Tobacco: No; Hx Alcohol Use: Yes Alcohol type: beer and wine Alcohol Intake Frequency: Monthly or Less Hx Substance Use: No Preferred Language: Dominican Communication Ability: Effective Visual Impairment: No Limitations Hearing Ability: Normal 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 Required: No Beliefs That Will Affect Care: None marital status: / Current Living Situation: Alone current occupational status: employed 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 How many Children do You have: 1 Feels Safe at Home: Yes Childhood Exposure to Second-Hand Smoke: Yes Diet: regular caffeine: Yes during the past year weight has: remained stable Dental Care, Regularly: Yes Physical Activity Frequency: Daily Seatbelt Use: always Sunscreen Use: Yes Assistive Devices: Cane and Glasses Allergies Allergies Allergy/AdvReac Type Severity Reaction Status Date / Time Penicillins Allergy Severe Anaphylaxis Verified 06/21/24 19:41 ciprofloxacin Allergy Intermediate myalgia Verified 06/21/24 19:41 [id number] Reductase AdvReac Intermediate muscle Verified 06/21/24 19:41 Inhibitor aches Home Meds Home Medications Medication Instructions Recorded Confirmed antiarthritic combination no.2 900 450 mg PO BID 03/25/20 06/21/24 mg tablet (glucosamine-chondroitin) ascorbate calcium (vitamin C) 500 500 mg PO QAM 03/25/20 06/21/24 mg tablet cholecalciferol (vitamin D3) 50 50 mcg PO BID 03/25/20 06/21/24 mcg (2,000 unit) tablet coQ10 (ubiquinol) 200 mg capsule 200 mg PO HS 03/25/20 06/21/24 multivitamin 1 tab PO QAM 03/25/20 06/21/24 iodine 150 mcg tablet (Kelp 150 mcg PO QAM 10/16/22 06/21/24 (iodine)) magnesium 250 mg tablet 250 mg PO HS 10/16/22 06/21/24 acetaminophen 500 mg capsule 1,000 mg PO TID PRN Pain 04/26/24 06/21/24 calcium carbonate (Calcium 600) 600 mg PO HS 04/26/24 06/21/24 clindamycin HCl 300 mg capsule 600 mg PO UD PRN dental procedure 04/26/24 06/21/24 lysine 500 mg tablet 500 mg PO QAM Cold Sores 04/26/24 06/21/24 rhubarb root extract 4 mg tablet 4 mg PO QAM 04/26/24 06/21/24 (Estroven Complete Menopause Relief) sennosides 8.6 mg-docusate sodium 1 tab-cap PO DAILY PRN Constipation 04/26/24 06/21/24 50 mg tablet (Senokot-S) omega-3 fatty acids 1,000 mg 1,000 mg PO DAILY 06/21/24 06/21/24 capsule vitamin B complex 1 tab PO DAILY 06/21/24 06/21/24 Previous Rx's Medication Instructions Recorded Wheeled Walker #1 ea 10/13/22 diclofenac potassium 50 mg tablet 50 mg PO TID #270 tabs 10/13/23 furosemide 40 mg tablet 40 mg PO DAILY #90 tabs 10/13/23 alprazolam 0.5 mg tablet (Xanax) 0.5 mg PO HS #90 tabs 04/12/24 levothyroxine 75 mcg tablet 75 mcg PO QAM #90 tabs 04/19/24 (Synthroid) fluticasone propionate 50 2 spray intranasal QAM PRN sinus 05/16/24 mcg/actuation nasal congestion #32 grams spray,suspension allopurinol 100 mg tablet 100 mg PO HS #90 tabs 05/17/24 pramipexole 0.5 mg tablet 0.5 mg PO HS #90 tabs 05/18/24 telmisartan 80 mg tablet (Micardis) 80 mg PO HS 30 days #90 tabs 05/18/24 spironolactone 25 mg tablet 25 mg PO QAM #90 tabs 05/22/24 nebivolol 10 mg tablet 10 mg PO QAM #90 tabs 06/07/24 oxycodone 5 mg tablet 5 - 10 mg (1 - 2 x 5 mg) PO Q6 PRN 06/08/24 pain #120 tabs atorvastatin 10 mg tablet 10 mg PO .every other day #90 tabs 06/12/24 Results & Data (ED) Vital Signs Vital Signs - 24 hr 06/21/24 18:48 06/21/24 18:55 06/21/24 18:56 Temperature 36.4 C L Temperature Source Oral Pulse Rate 83 Pulse Rate [Apical] 83 Pulse Rhythm Regular Pulse Strength Normal Respiratory Rate 20 22 Respiratory Effort / Characteristics Non-Labored Non-Labored Spontaneous Respiratory Depth Normal Respiratory Pattern Regular Blood Pressure 98/55 L Blood Pressure [Left Arm] 100/59 L Blood Pressure Mean 69 Blood Pressure Mean [Left Arm] 72 Blood Pressure Position Sitting Pulse Oximetry 98 98 88 L Oxygen Delivery Method Room Air Room Air Room Air Oxygen Flow Rate Sepsis Recent Fever Within 48 Hours No Sepsis New/Unexplained Change in Mental Status No Sepsis Action Taken by Nursing No Action Required 06/21/24 19:02 06/21/24 19:20 06/21/24 19:30 Temperature 36.5 C Temperature Source Oral Pulse Rate 83 Pulse Rate [Apical] 80 78 Pulse Rhythm Pulse Strength Respiratory Rate 24 30 H Respiratory Effort / Characteristics Respiratory Depth Respiratory Pattern Blood Pressure Blood Pressure [Left Arm] 90/49 L 80/61 L Blood Pressure Mean Blood Pressure Mean [Left Arm] 62 67 Blood Pressure Position Pulse Oximetry 99 94 Oxygen Delivery Method Nasal Cannula Nasal Cannula Oxygen Flow Rate 3 4 Sepsis Recent Fever Within 48 Hours Sepsis New/Unexplained Change in Mental Status Sepsis Action Taken by Nursing 06/21/24 19:45 06/21/24 20:00 06/21/24 20:15 Temperature Temperature Source Pulse Rate 79 88 87 Pulse Rate [Apical] Pulse Rhythm Pulse Strength Respiratory Rate 22 26 H 26 H Respiratory Effort / Characteristics Respiratory Depth Respiratory Pattern Blood Pressure 109/68 107/65 100/60 Blood Pressure [Left Arm] Blood Pressure Mean 78 72 78 Blood Pressure Mean [Left Arm] Blood Pressure Position Pulse Oximetry 95 94 97 Oxygen Delivery Method Nasal Cannula Nasal Cannula Nasal Cannula Oxygen Flow Rate 5 5 2 Sepsis Recent Fever Within 48 Hours Sepsis New/Unexplained Change in Mental Status Sepsis Action Taken by Nursing 06/21/24 20:30 Temperature Temperature Source Pulse Rate Pulse Rate [Apical] 86 Pulse Rhythm Pulse Strength Respiratory Rate 24 Respiratory Effort / Characteristics Respiratory Depth Respiratory Pattern Blood Pressure Blood Pressure [Left Arm] 107/77 Blood Pressure Mean Blood Pressure Mean [Left Arm] 87 Blood Pressure Position Pulse Oximetry 93 Oxygen Delivery Method Nasal Cannula Oxygen Flow Rate 4 Sepsis Recent Fever Within 48 Hours Sepsis New/Unexplained Change in Mental Status Sepsis Action Taken by Nursing Laboratory Data 06/21/24 18:50 06/21/24 18:50 Lab Results 06/21/24 06/21/24 06/21/24 Range/Units 18:50 18:55 19:06 WBC 7.54 (4.8-10.8) K/ul RBC 3.45 L (4.20-5.40) M/uL Hgb 10.1 L (12.0-16.0) g/dl POC Hgb 10.5 L (12.0-16.0) g/dl Hct 33.4 L (37.0-47.0) % POC Hct 31 L (37-47) % MCV 96.8 (80.0-100.0) fL MCH 29.3 (25.0-34.0) pg MCHC 30.2 L (32.0-36.0) g/dL RDW Std Deviation 48.3 H (36.4-46.3) fL RDW Coeff of Rafael 13.7 (11.5-14.5) % Plt Count 425 H (130-400) K/uL MPV 9.0 L (9.4-12.4) fL Neutrophils % (Manual) 66 % Lymphocytes % (Manual) 23 % Monocytes % (Manual) 1 % Metamyelocytes % (Man) 8 % Myelocytes % (Man) 2 % Neutrophils # (Manual) 4.98 (1.40-6.50) K/uL Total Absolute Neuts 4.98 (1.4-6.5) K/uL Lymphocytes # (Manual) 1.73 (1.2-3.4) K/uL Total Abs Lymphocytes 1.73 (1.2-3.4) K/uL Monocytes # (Manual) 0.08 L (0.11-0.59) K/uL Metamyelocytes # (Man) 0.60 H (0-0) K/uL Myelocytes # (Manual) 0.15 H (0-0) K/uL Toxic Granulation 1+ Echinocytes 1+ Acanthocytes (Spur) 2+ PT 12.8 H (9.0-12.0) Seconds INR 1.2 H (0.9-1.1) POC Sodium 130 L (135-144) mmol/L Sodium 131 L (136-145) mmol/L POC Potassium 4.7 (3.3-5.0) mmol/L Potassium 4.7 (3.5-5.1) mmol/L POC Chloride 106 (101-112) mmol/L Chloride 101 (98-107) mmol/L Carbon Dioxide 12 L (21-32) mmol/L POC Total CO2 11 L (24-31) mmol/L Anion Gap 18 H (3-11) POC Anion Gap 18.0 (16-25) mmol/L POC BUN 48 H (7-18) mg/dl BUN 53 H (6-23) mg/dl Creatinine 3.98 H (0.6-1.2) mg/dl POC Creatinine 4.0 H (0.6-1.3) mg/dl Est Cr Clr Drug Dosing 11.6 ml/min Est GFR ( Amer) 11.9 ml/min Est GFR (Non-Af Amer) 10.3 ml/min BUN/Creatinine Ratio 13.3 (10-20) Glucose 117 H (70-99(Fasting)) mg/dl POC Glucose (other) 111 H (70-99) mg/dl Calcium 15.7 H* (8.6-10.3) mg/dl POC Ioniz Calcium Beverly 2.00 H* (1.12-1.32) mmol/l Total Bilirubin 0.3 (0.2-1.0) mg/dl AST 30 (13-39) U/L ALT 23 (7-52) U/L Alkaline Phosphatase 65 (34-104) U/L Troponin I High Sens 11.7 (0-14) pg/ml Total Protein 5.8 L (6.0-8.3) gm/dl Albumin 2.8 L (3.4-5.0) gm/dl Globulin 3.0 (2.5-4.0) gm/dl Albumin/Globulin Ratio 0.9 (0.9-2) Lipase 178 H (11-82) U/L Blood Type AB Positive Antibody Screen NEGATIVE Administered Medications Ciprofloxacin (Cipro / D5w) 400 mg in 200 mls @ 100 mls/hr IV NOW STA; Protocol Stop: 06/21/24 21:43 Last Admin: 06/21/24 19:54 Dose: 100 mls/hr Documented By: FAVIO Discontinued Medications Sodium Chloride (Nss) 1,000 mls @ 999 mls/hr IV .Q1H1M STA Stop: 06/21/24 19:48 Last Infusion: 06/21/24 19:59 Dose: Infused Documented By: Admin: 06/21/24 18:59 Dose: 999 mls/hr Documented By: DEBORAH Sodium Chloride (Nss) 1,000 mls @ 999 mls/hr IV .Q1H1M ONE Stop: 06/21/24 20:32 Last Infusion: 06/21/24 20:56 Dose: Infused Documented By: Admin: 06/21/24 19:57 Dose: 999 mls/hr Documented By: FAVIO Metronidazole (Flagyl) 500 mg in 100 mls @ 100 mls/hr IV NOW STA; Protocol Stop: 06/21/24 20:43 Last Infusion: 06/21/24 20:56 Dose: Infused Documented By: Admin: 06/21/24 20:10 Dose: 100 mls/hr Documented By: FAVIO Imaging Data Radiologist's Impression: Abdomen/Pelvis CT 06/21/24 19:07 CR Exam(s): CT ABDOMEN + PELVIS Without Contrast EXAM: CT Abdomen and Pelvis Without Intravenous Contrast CLINICAL HISTORY: Reason for exam: abd pain, recent colonoscopy. TECHNIQUE: Axial computed tomography images of the abdomen and pelvis without intravenous contrast. CTDI is 26 mGy and DLP is 1283 mGy-cm. Automated exposure control was utilized for the study. A dose lowering technique was utilized adhering to the principles of ALARA. COMPARISON: No relevant prior studies available. FINDINGS: Lung bases: Bibasilar subsegmental atelectasis. Pulmonary nodules in the right middle lobe measuring up to 8 mm (series 2, image 4). Pleural space: Small left pleural effusion. ABDOMEN: Liver: Unremarkable. Gallbladder and bile ducts: Unremarkable. No calcified stones. No ductal dilation. Pancreas: Unremarkable. No ductal dilation. Spleen: Unremarkable. No splenomegaly. Adrenals: Benign left adrenal adenoma measuring 23 mm; no follow-up indicated. Right adrenal gland is unremarkable. Kidneys and ureters: Unremarkable. No obstructing stones. No hydronephrosis. Stomach and bowel: Unremarkable. No mucosal thickening. No bowel obstruction. PELVIS: Appendix: Appendix not identified. Bladder: Unremarkable. No stones. Reproductive: Unremarkable as visualized. ABDOMEN and PELVIS: Intraperitoneal space: Mild ascites with scattered pneumoperitoneum. Bones/joints: Osteopenia. Degenerative changes in the spine. Right total hip arthroplasty. No acute fracture location. No dislocation. Soft tissues: Unremarkable. Vasculature: Atherosclerosis without aortic aneurysm. Lymph nodes: Unremarkable. No enlarged lymph nodes. IMPRESSION: 1. Mild ascites with scattered pneumoperitoneum. Appearance is concerning for bowel preparation. Site of perforation is not clearly delineated, but presumably is somewhere within the colon given recent colonoscopy. 2. Pulmonary nodules in the right middle lobe measuring up to 8 mm (series 2, image 4). Per Fleischner Society guidelines, dedicated CT chest recommended. Communications: Call Doctor Pneumoperitoneum, new or unexpected Electronically signed by: Yovany Padilla M.D. 06/21/24 19:38 PM Discharge Plan Visit Data Chief Complaint: Hypotension Stated Complaint: HYPOTENSION ED Provider: Allen Guerrero Discharge Problem: Perforated bowel Patient Disposition: Admitted As Inpatient Discharge Instructions Interventions: ED Discharge Assessment Last Done: 06/21/24 20:51
[2024-06-21] MEDS: SODIUM CHLORIDE 0.9% 1,000 ML IV STA (18:59)
[2024-06-21 19:07] LABS: iSTAT Hemoglobin 10.5 g/dl (12.0-16.0); iSTAT Potassium 4.7 mmol/L (3.3-5.0)
[2024-06-21 19:13] LABS: Hematocrit (blood only) 33.4 % (37.0-47.0); Hemoglobin 10.1 g/dl (12.0-16.0); Mean Corpuscular Hemoglobin 29.3 pg (25.0-34.0); Mean Corpuscular Hgb Conc 30.2 g/dL (32.0-36.0); Mean Corpuscular Volume 96.8 fL (80.0-100.0); Platelet Count 425 K/uL (130-400); RDW Coefficient of Variation 13.7 % (11.5-14.5); RDW Standard Deviation 48.3 fL (36.4-46.3); Red Blood Count 3.45 M/uL (4.20-5.40); White Blood Count 7.54 K/ul (4.8-10.8)
[2024-06-21 19:18] LABS: INR 1.2 (0.9-1.1); Prothrombin Time 12.8 Seconds (9.0-12.0)
[2024-06-21 19:34] LABS: Albumin Globulin Ratio 0.9 (0.9-2); Albumin Level 2.8 gm/dl (3.4-5.0); BUN Creatinine Ratio 13.3 (10-20); Bilirubin,Total 0.3 mg/dl (0.2-1.0); Calcium 15.7 mg/dl (8.6-10.3); Creatinine Clr Calc Pharmacy 11.6 ml/min; Est GFR (African American) 11.9 ml/min; Est GFR (Non-African American) 10.3 ml/min; Potassium 4.7 mmol/L (3.5-5.1); Total Protein 5.8 gm/dl (6.0-8.3)
--- NOTE | 2024-06-21 19:39 | CT Scan Report ---
Exam(s): CT ABDOMEN + PELVIS Without Contrast EXAM: CT Abdomen and Pelvis Without Intravenous Contrast CLINICAL HISTORY: Reason for exam: abd pain, recent colonoscopy. TECHNIQUE: Axial computed tomography images of the abdomen and pelvis without intravenous contrast. CTDI is 26 mGy and DLP is 1283 mGy-cm. Automated exposure control was utilized for the study. A dose lowering technique was utilized adhering to the principles of ALARA. COMPARISON: No relevant prior studies available. FINDINGS: Lung bases: Bibasilar subsegmental atelectasis. Pulmonary nodules in the right middle lobe measuring up to 8 mm (series 2, image 4). Pleural space: Small left pleural effusion. ABDOMEN: Liver: Unremarkable. Gallbladder and bile ducts: Unremarkable. No calcified stones. No ductal dilation. Pancreas: Unremarkable. No ductal dilation. Spleen: Unremarkable. No splenomegaly. Adrenals: Benign left adrenal adenoma measuring 23 mm; no follow-up indicated. Right adrenal gland is unremarkable. Kidneys and ureters: Unremarkable. No obstructing stones. No hydronephrosis. Stomach and bowel: Unremarkable. No mucosal thickening. No bowel obstruction. PELVIS: Appendix: Appendix not identified. Bladder: Unremarkable. No stones. Reproductive: Unremarkable as visualized. ABDOMEN and PELVIS: Intraperitoneal space: Mild ascites with scattered pneumoperitoneum. Bones/joints: Osteopenia. Degenerative changes in the spine. Right total hip arthroplasty. No acute fracture location. No dislocation. Soft tissues: Unremarkable. Vasculature: Atherosclerosis without aortic aneurysm. Lymph nodes: Unremarkable. No enlarged lymph nodes. IMPRESSION: 1. Mild ascites with scattered pneumoperitoneum. Appearance is concerning for bowel preparation. Site of perforation is not clearly delineated, but presumably is somewhere within the colon given recent colonoscopy. 2. Pulmonary nodules in the right middle lobe measuring up to 8 mm (series 2, image 4). Per Fleischner Society guidelines, dedicated CT chest recommended. Communications: Call Doctor Pneumoperitoneum, new or unexpected Electronically signed by: Yovany Padilla M.D. 06/21/24 19:38 PM
[2024-06-21 19:40] LABS: ALC (manual) 1.73 K/uL (1.2-3.4); ANC (manual) 4.98 K/uL (1.4-6.5); Acanthocytes 2+; Echinocytes 1+; Lymphocytes # (manual) 1.73 K/uL (1.2-3.4); Lymphocytes % (manual) 23 %; Metamyelocytes % (manual) 8 %; Monocytes # (manual) 0.08 K/uL (0.11-0.59); Monocytes % (manual) 1 %; Myelocytes # (manual) 0.15 K/uL (0-0); Myelocytes % (manual) 2 %; Neutrophils # (manual) 4.98 K/uL (1.40-6.50); Neutrophils % (manual) 66 %; Toxic Granulation 1+
[2024-06-21 19:42] LABS: Troponin I High Sensitivity 11.7 pg/ml (0-14)
[2024-06-21] MEDS: CIPROFLOXACIN / D5W 400 MG/200 ML BAG IV STA (19:54)
[2024-06-21] MEDS: SODIUM CHLORIDE 0.9% 1,000 ML IV ONE (19:57)
[2024-06-21] MEDS: metroNIDAZOLE 500 MG/100 ML BAG IV STA (20:10)
--- NOTE | 2024-06-21 20:26 | History & Physical Report ---
Date of Service June 21, 2024 Assessment & Plan (1) Free intraperitoneal air: Plan: I evaluated the patient in room B1: It appears as though the patient has scattered pneumoperitoneum and ascites with most likely etiology being colon perforation due to a recent colonoscopy Analgesics to be provided Antiemetics to be provided Will continue to resuscitate with intravenous fluids The treating emergency room physician has ordered antibiotics in form of Cipro and Flagyl which should continue Will keep the patient n.p.o. for the present time Due to the patient's clinical status and findings on CT scan we are tentatively planning on exploratory laparotomy Dr. Rizzo this evening. I did discuss with the patient that it is uncertain what operation she would require until we evaluate her abdomen and ascertain the cause of the abnormalities noted on CT scan Additional recommendations to be forthcoming based on her clinical course as it unfolds History of Present Illness Chief Complaint: Abdominal pain Primary Care Provider: Mychal Hall MD This is a 74-year-old female who presented to the emergency department secondary to abdominal pain. Patient underwent a colonoscopy yesterday. Patient notes that this was a follow-up colonoscopy as she had a colonoscopy in April of this year that showed a possible stricture in her colon. I did discuss with her consultant luxury and auto. vice president [employer] (ex ), Dr. Davila notes that he did the colonoscopy on 06/20/2024 and he got to the area of potential stricture where he found that patient had many ulcerated areas. He said that he was able to traverse this area and no stricture was present. He said that he perform this maneuver without any difficulty. He did raise a concern that the ulcerations were either ischemic or related to NSAID use. He did not feel that this appeared malignant. He did take biopsies with cold forceps. He said that this area in question was in the ascending colon in close proximity to the cecum. The patient notes that she had an abdominal pain almost immediately following the procedure which resolved somewhat with Tylenol but it persisted throughout today. Patient says that she was able to drink an Ensure at approximately noon today which was her most recent oral intake but she had some nausea vomiting following this. She then began to feel lightheaded and dizzy as well as cold and clammy and therefore was referred to the emergency department after discussion with her consultant luxury and auto. vice president [employer] (ex ). Since arrival to the emergency department she has had labs and imaging which I independent reviewed. Patient did have a CT scan of the abdomen and pelvis which showed the patient had mild ascites and scattered pneumoperitoneum which raise a concern for a bowel perforation. A chest x-ray was performed and there is potential free air under the right hemidiaphragm on the study. A CBC revealed white blood cell count was normal. Hemoglobin and hematocrit were 10.1 and 33.4. Platelet count was 4-25,000. Coagulation studies revealed an INR of 1.2. Chemistry profile showed sodium was 131 with a potassium of 4.7. BUN and creatinine were 53 and 3.9. Patient's lipase was elevated at 178. In the emergency department the patient was noted to be relatively hypotensive with systolic blood pressure in 80s. She did receive approximate 3 L of intravenous fluids and her blood pressure did respond to this. At the time of my exam the patient was resting comfortably in bed. She does not appear to be in any distress but did complain of some abdominal discomfort. Allergies Allergy/AdvReac Type Severity Reaction Status Date / Time Penicillins Allergy Severe Anaphylaxis Verified 06/21/24 19:41 ciprofloxacin Allergy Intermediate myalgia Verified 06/21/24 19:41 [id number] Reductase AdvReac Intermediate muscle Verified 06/21/24 19:41 Inhibitor aches Home Medications Medication Instructions Recorded Confirmed Type antiarthritic combination no.2 900 450 mg PO BID 03/25/20 06/21/24 History mg tablet (glucosamine-chondroitin) ascorbate calcium (vitamin C) 500 500 mg PO QAM 03/25/20 06/21/24 History mg tablet cholecalciferol (vitamin D3) 50 50 mcg PO BID 03/25/20 06/21/24 History mcg (2,000 unit) tablet coQ10 (ubiquinol) 200 mg capsule 200 mg PO HS 03/25/20 06/21/24 History multivitamin 1 tab PO QAM 03/25/20 06/21/24 History Wheeled Walker #1 ea 10/13/22 06/21/24 Rx iodine 150 mcg tablet (Kelp 150 mcg PO QAM 10/16/22 06/21/24 History (iodine)) magnesium 250 mg tablet 250 mg PO HS 10/16/22 06/21/24 History diclofenac potassium 50 mg tablet 50 mg PO TID #270 tabs 10/13/23 06/21/24 Rx furosemide 40 mg tablet 40 mg PO DAILY #90 tabs 10/13/23 06/21/24 Rx alprazolam 0.5 mg tablet (Xanax) 0.5 mg PO HS #90 tabs 04/12/24 06/21/24 Rx levothyroxine 75 mcg tablet 75 mcg PO QAM #90 tabs 04/19/24 06/21/24 Rx (Synthroid) acetaminophen 500 mg capsule 1,000 mg PO TID PRN Pain 04/26/24 06/21/24 History calcium carbonate (Calcium 600) 600 mg PO HS 04/26/24 06/21/24 History clindamycin HCl 300 mg capsule 600 mg PO UD PRN dental procedure 04/26/24 06/21/24 History lysine 500 mg tablet 500 mg PO QAM Cold Sores 04/26/24 06/21/24 History rhubarb root extract 4 mg tablet 4 mg PO QAM 04/26/24 06/21/24 History (Estroven Complete Menopause Relief) sennosides 8.6 mg-docusate sodium 1 tab-cap PO DAILY PRN Constipation 04/26/24 06/21/24 History 50 mg tablet (Senokot-S) fluticasone propionate 50 2 spray intranasal QAM PRN sinus 05/16/24 06/21/24 Rx mcg/actuation nasal congestion #32 grams spray,suspension allopurinol 100 mg tablet 100 mg PO HS #90 tabs 05/17/24 06/21/24 Rx pramipexole 0.5 mg tablet 0.5 mg PO HS #90 tabs 05/18/24 06/21/24 Rx telmisartan 80 mg tablet (Micardis) 80 mg PO HS 30 days #90 tabs 05/18/24 06/21/24 Rx spironolactone 25 mg tablet 25 mg PO QAM #90 tabs 05/22/24 06/21/24 Rx nebivolol 10 mg tablet 10 mg PO QAM #90 tabs 06/07/24 06/21/24 Rx oxycodone 5 mg tablet 5 - 10 mg (1 - 2 x 5 mg) PO Q6 PRN 06/08/24 06/21/24 Rx pain #120 tabs atorvastatin 10 mg tablet 10 mg PO .every other day #90 tabs 06/12/24 06/21/24 Rx omega-3 fatty acids 1,000 mg 1,000 mg PO DAILY 06/21/24 06/21/24 History capsule vitamin B complex 1 tab PO DAILY 06/21/24 06/21/24 History Past Med/Surg History Problem List Free intraperitoneal air Uterine mass Adrenal mass 1 cm to 4 cm in diameter Arthrofibrosis of left hip joint Abnormal CT scan Hip arthritis Colonic mass Abnormal colonoscopy Positive colorectal cancer screening using Cologuard test Positive colorectal cancer screening using Cologuard test Hyperparathyroidism UTI (urinary tract infection) Neuropathy Hyponatremia Anemia S/P total right hip arthroplasty Impaired glucose metabolism Grade II diastolic dysfunction Periodic limb movement disorder (PLMD) Chronic kidney disease (CKD) stage G3a/A3, moderately decreased glomerular filtration rate (GFR) between 45-59 mL/min/1.73 square meter and albuminuria creatinine ratio greater than 300 mg/g Hyperlipidemia Lumbar stenosis with neurogenic claudication Severe at L4-5 Gout Hypothyroidism HTN (hypertension) Medical History Osteoarthritis Positive colorectal cancer screening using Cologuard test Neuropathy to see [facility] Neurology 06/2024 (new patient) Anemia History of COVID-19 06/2023: mild flu symptoms. Lumbar stenosis severe L4-L5. has had epidural steroid injections and physical therapy Hyperparathyroidism pt unsure of details Hypothyroidism Hyperlipidemia Hypertension Hx of gout never had symptoms, had elevated uric acid levels. Hx of basal cell carcinoma Chronic kidney disease, stage 3 to see [facility] Nephrology 05/2024 (as a new patient) Hx of migraines prior to menopause Surgical History S/P epidural steroid injection History of right hip replacement Hx of laparoscopy for tx endometriosis Hx of colonoscopy S/P Mohs surgery for basal cell carcinoma History of section Family History Brother Myocardial infarction Hypertension Smoker Grandmother (Maternal) Diabetes Father Hypertension Cancer bladder Stroke Myocardial infarction Mother Hypertension Asthma Congestive heart failure Myocardial infarction Sister Hypertension Eczema Denies family history of Ovarian cancer Prostate cancer Breast cancer Colorectal cancer Social History Smoking Status: Never smoker Second Hand Exposure: Yes (growing up until age 16); Do You Dip or Chew Tobacco: No; Hx Alcohol Use: Yes Alcohol type: beer and wine Alcohol Intake Frequency: Monthly or Less Hx Substance Use: No Preferred Language: [place] Communication Ability: Effective Visual Impairment: No Limitations Hearing Ability: Normal Administrative Associate Required: No Beliefs That Will Affect Care: None marital status: / Current Living Situation: Alone current occupational status: employed 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 How many Children do You have: 1 Feels Safe at Home: Yes Childhood Exposure to Second-Hand Smoke: Yes Diet: regular caffeine: Yes during the past year weight has: remained stable Dental Care, Regularly: Yes Physical Activity Frequency: Daily Seatbelt Use: always Sunscreen Use: Yes Assistive Devices: Cane and Glasses Review of Systems Review of Systems: All systems reviewed & are unremarkable except as noted in HPI & below Physical Exam Constitutional: + acute distress Patient appealed pale and slightly diaphoretic Eyes: no conjunctival abnormality Wears glasses ENMT: Ears: no hearing impairment and no external ear abnormality Mouth: no oropharynx abnormality Neck: trachea midline Respiratory: normal respiratory effort and + respiratory distress; no labored breathing Breath sounds are slightly decreased at the bases Cardiovascular: Rate/Rhythm: regular rate and regular rhythm Gastrointestinal (Abdomen): Abdomen is distended but nonrigid and overall soft. There is some slight rebound tenderness and patient did have pain with palpation in a generalized fashion throughout her abdomen Musculoskeletal: No calf tenderness. I was unable to palpate pedal pulses. Her radial pulses were weak. Her feet were nonmottled but cool. Skin: Skin noted to be pale Neurologic: moves all extremities Psychiatric: A+Ox3, euthymic affect Results & Data Results & Data Vital Signs (Past 12 Hours) Vital Signs Temp Pulse Pulse Resp BP BP Pulse Ox 06/21/24 20:00 88 26 H 107/65 94 06/21/24 19:45 79 22 109/68 95 06/21/24 19:30 78 30 H 80/61 L 94 06/21/24 19:20 36.5 C 80 24 90/49 L 99 06/21/24 19:02 83 06/21/24 18:56 83 22 100/59 L 88 L 06/21/24 18:55 98 06/21/24 18:48 36.4 C L 83 20 98/55 L 98 O2 Del Method O2 Flow Rate 06/21/24 20:00 Nasal Cannula 5 08/28/24 19:45 Nasal Cannula 5 06/21/24 19:30 Nasal Cannula 4 06/21/24 19:20 Nasal Cannula 3 06/21/24 19:02 06/21/24 18:56 Room Air 06/21/24 18:55 Room Air 06/21/24 18:48 Room Air Supervising Physician Co-Signing Physician Notes Patient seen and examined, labs and imaging reviewed, agree with above. 74-year-old female but has been undergoing several colonoscopies for a positive Cologuard test and some ulcerations and strictures in her right colon. She underwent colonoscopy with biopsy yesterday and some ulcerations were noted in the ascending colon. She had some pain after the procedure but this was normal. Today she developed sudden onset abdominal pain. She presented hypotensive and in acute kidney injury to the emergency department. Currently after some resuscitation she is afebrile with stable vitals. Her abdomen is soft, tender to palpation, distended, nonrigid, some guarding with deep palpation. Her WBC is normal. Her CT scan was personally viewed and interpreted and agree with the assessment of some moderate pneumoperitoneum and significant ascites concerning for perforation. Given the history this is likely in the right colon. Plan for exploratory laparotomy, possible bowel resection, possible colostomy, surgery as needed Risk the procedure were discussed to include but not limited to bleeding, infection, need for future more extensive surgeries, open abdomen, hernia, abscess, damage to surrounding structures, and the risk of anesthesia including blood clots, pneumonia, stroke, heart attack, ICU stay postop We may elect to do damage control surgery and leave her in discontinuity with an open appendectomy PG Care Time/CCT Total # of Minutes Spent Total Time Spent with Patient: Total time spent is greater than 50% in coordination of care (as documented) at patient's floor/unit and/or counseling patient: Coding Level of Care Code 02582 INT INP/OBS CARE 3/75MIN Diagnoses Free intraperitoneal air K66.8
--- NOTE | 2024-06-21 21:01 | Anesthesiology Consultation ---
Date of Service June 21, 2024 Assessment & Plan Chart Review Chart Review: Acceptable Risk for Surgery and Patient NOT seen in Pre Admission Testing Consults Requested none ASA [id number] Proposed Anesthesia Anesthesia Type: General Risk / Benefits Reviewed With: PT / POA / Parent / Guardian, Accepts Plan and Informed Consent Obtained History Surgery Operation Date: 06/21/24 21:10 Proposed Procedures p Exploratory Laparotomy - Flakito Rizzo, , FACS Height/Weight Height: 5 ft 1 in Weight: 81.7 kg Allergies Allergy/AdvReac Type Severity Reaction Status Date / Time Penicillins Allergy Severe Anaphylaxis Verified 06/21/24 19:41 ciprofloxacin Allergy Intermediate myalgia Verified 06/21/24 19:41 [id number] Reductase AdvReac Intermediate muscle Verified 06/21/24 19:41 Inhibitor aches Medications Home Medications Medication Instructions Recorded Confirmed Last Taken antiarthritic combination no.2 900 450 mg PO BID 03/25/20 06/21/24 05/04/24 mg tablet (glucosamine-chondroitin) ascorbate calcium (vitamin C) 500 500 mg PO QAM 03/25/20 06/21/24 05/08/24 mg tablet cholecalciferol (vitamin D3) 50 50 mcg PO BID 03/25/20 06/21/24 05/08/24 mcg (2,000 unit) tablet coQ10 (ubiquinol) 200 mg capsule 200 mg PO HS 03/25/20 06/21/24 05/04/24 multivitamin 1 tab PO QAM 03/25/20 06/21/24 05/04/24 Wheeled Walker #1 ea 10/13/22 06/21/24 Unknown iodine 150 mcg tablet (Kelp 150 mcg PO QAM 10/16/22 06/21/24 05/08/24 (iodine)) magnesium 250 mg tablet 250 mg PO HS 10/16/22 06/21/24 05/07/24 diclofenac potassium 50 mg tablet 50 mg PO TID #270 tabs 10/13/23 06/21/24 05/07/24 furosemide 40 mg tablet 40 mg PO DAILY #90 tabs 10/13/23 06/21/24 05/07/24 alprazolam 0.5 mg tablet (Xanax) 0.5 mg PO HS #90 tabs 04/12/24 06/21/24 05/08/24 levothyroxine 75 mcg tablet 75 mcg PO QAM #90 tabs 04/19/24 06/21/24 05/09/24 (Synthroid) acetaminophen 500 mg capsule 1,000 mg PO TID PRN Pain 04/26/24 06/21/24 05/09/24 calcium carbonate (Calcium 600) 600 mg PO HS 04/26/24 06/21/24 05/08/24 clindamycin HCl 300 mg capsule 600 mg PO UD PRN dental procedure 04/26/24 06/21/24 Unknown lysine 500 mg tablet 500 mg PO QAM Cold Sores 04/26/24 06/21/24 05/08/24 rhubarb root extract 4 mg tablet 4 mg PO QAM 04/26/24 06/21/24 05/04/24 (Estroven Complete Menopause Relief) sennosides 8.6 mg-docusate sodium 1 tab-cap PO DAILY PRN Constipation 04/26/24 06/21/24 Unknown 50 mg tablet (Senokot-S) fluticasone propionate 50 2 spray intranasal QAM PRN sinus 05/16/24 06/21/24 Unknown mcg/actuation nasal congestion #32 grams spray,suspension allopurinol 100 mg tablet 100 mg PO HS #90 tabs 05/17/24 06/21/24 Unknown pramipexole 0.5 mg tablet 0.5 mg PO HS #90 tabs 05/18/24 06/21/24 Unknown telmisartan 80 mg tablet (Micardis) 80 mg PO HS 30 days #90 tabs 05/18/24 06/21/24 Unknown spironolactone 25 mg tablet 25 mg PO QAM #90 tabs 05/22/24 06/21/24 Unknown nebivolol 10 mg tablet 10 mg PO QAM #90 tabs 06/07/24 06/21/24 Unknown oxycodone 5 mg tablet 5 - 10 mg (1 - 2 x 5 mg) PO Q6 PRN 06/08/24 06/21/24 Unknown pain #120 tabs atorvastatin 10 mg tablet 10 mg PO .every other day #90 tabs 06/12/24 06/21/24 Unknown omega-3 fatty acids 1,000 mg 1,000 mg PO DAILY 06/21/24 06/21/24 Unknown capsule vitamin B complex 1 tab PO DAILY 06/21/24 06/21/24 Unknown Active Medications Generic Name Dose Route Start Last Admin Trade Name Gus PRN Reason Stop Dose Admin Ciprofloxacin 400 mg in 200 mls @ 100 mls/hr 06/21/24 19:44 06/21/24 19:54 Cipro / D5w IV 06/21/24 21:43 100 mls/hr NOW STA Administration Protocol NPO Date Last Intake of Fluids: 06/21/24 Time Last Intake of Fluids: 17:00 Last Intake of Fluids Comment: ensure with medication Last Intake of Solids Comment: no solid food today. only ensure Past Medical History Medical History Osteoarthritis Positive colorectal cancer screening using Cologuard test Neuropathy to see [facility] Neurology 06/2024 (new patient) Anemia History of COVID-19 06/2023: mild flu symptoms. Lumbar stenosis severe L4-L5. has had epidural steroid injections and physical therapy Hyperparathyroidism pt unsure of details Hypothyroidism Hyperlipidemia Hypertension Hx of gout never had symptoms, had elevated uric acid levels. Hx of basal cell carcinoma Chronic kidney disease, stage 3 to see [facility] Nephrology 05/2024 (as a new patient) Hx of migraines prior to menopause Exercise / Class Metabolic Activity II 4-5 Yardwork/Stairs/Walk up hill Past Family History Family History Brother Myocardial infarction Hypertension Smoker Grandmother (Maternal) Diabetes Father Hypertension Cancer bladder Stroke Myocardial infarction Mother Hypertension Asthma Congestive heart failure Myocardial infarction Sister Hypertension Eczema Denies family history of Ovarian cancer Prostate cancer Breast cancer Colorectal cancer Past Surgical History Surgical History S/P epidural steroid injection History of right hip replacement Hx of laparoscopy for tx endometriosis Hx of colonoscopy S/P Mohs surgery for basal cell carcinoma History of section Past Anesthesia History No Hx of Anesthesia Complications and No Family Hx of Anesthesia Complications History of PONV No Hx of PONV and No Hx of Motion Sickness Social History Smoking Status: Never smoker Do You Dip or Chew Tobacco: No Hx Alcohol Use: Yes Alcohol type: beer and wine Hx Substance Use: No substance use type: does not use Review of Systems ROS Unobtainable: All systems reviewed & are unremarkable except as noted in HPI & below Physical Exam Vital Signs Last Vital Signs Temp 36.5 C 06/21/24 19:20 Pulse 86 06/21/24 20:30 Resp 24 06/21/24 20:30 BP 107/77 06/21/24 20:30 Pulse Ox 93 06/21/24 20:30 O2 Del Method Nasal Cannula 06/21/24 20:30 O2 Flow Rate 4 06/21/24 20:30 ENMT Mouth: no TMJ abnormality Thyromental Distance: > or= 3.5 Finger Breadths Mallampati Class: II Neck normal visual inspection and trachea midline; neck extension not limited Respiratory normal respiratory effort Auscultation: lungs clear to auscultation bilaterally Cardiovascular Rate/Rhythm: regular rate and regular rhythm Heart Sounds: no murmur Musculoskeletal Spine: normal cervical ROM Extremities: full ROM of extremities Neurologic moves all extremities Psychiatric Orientation: alert and oriented x 3 Testing Laboratory Results 06/21/24 18:50 06/21/24 18:50 PT 12.8 Seconds (9.0-12.0) H 06/21/24 18:50 INR 1.2 (0.9-1.1) H 06/21/24 18:50 Blood Type AB Positive 06/21/24 19:06 Antibody Screen NEGATIVE 06/21/24 19:06 06/21/24 18:55 POC Glucose (other) 111 H Electrocardiogram Date: 10/22/22 Normal sinus rhythm Incomplete right bundle branch block Borderline ECG No previous ECGs available Confirmed by Nicanor Meza ([id number]) on 10/22/2022 5:45:47 PM Echocardiogram Date: 04/21/21 EF: 70
[2024-06-21] MEDS ORDERED: ePHEDrine sulfate 50 MG/ML AMP IV PRN (21:11)
[2024-06-21] MEDS ORDERED: ONDANSETRON INJ 2 MG/ML 2 ML VIAL IV PRN (21:11)
[2024-06-21] MEDS ORDERED: fentaNYL citrate PF 100 MCG/2 ML VIAL IV PRN (21:11)
[2024-06-21] MEDS ORDERED: ATROPINE SULFATE 0.1 MG/ML 10ML SYR IV PRN (21:11)
[2024-06-21] MEDS ORDERED: HYDROmorphone INJ 1 MG/ML SYRINGE IV PRN (21:11)
[2024-06-21] MEDS ORDERED: fentaNYL citrate PF 100 MCG/2 ML VIAL ONE (21:14)
[2024-06-21] MEDS ORDERED: KETAMINE HCL 10MG/ML SYR ONE (21:19)
[2024-06-21] MEDS ORDERED: PHENYLEPHRINE HCL 10 MG/ML VIAL ONE (22:13)
[2024-06-21] MEDS ORDERED: PHENYLEPHRINE 100MCG/ML 10ML SYR IV ONE (22:13)
[2024-06-21] MEDS ORDERED: VASOPRESSIN 20 UNIT/ML VIAL ONE (22:13)
[2024-06-21] MEDS ORDERED: ONDANSETRON INJ 2 MG/ML 2 ML VIAL ONE (22:13)
[2024-06-21] MEDS ORDERED: PROPOFOL IV EMULSION 10 MG/ML 20 ML VIAL IV ONE (22:13)
[2024-06-21] MEDS ORDERED: ROCURONIUM BROMIDE 10 MG/ML 5 ML VIAL IV ONE (22:13)
[2024-06-21] MEDS ORDERED: ePHEDrine sulfate 50 MG/5 ML SYR ONE (22:54)
[2024-06-21] MEDS: BUPIVACAINE 0.5 % 5 MG/1 ML MPF 30ML VIAL ONE (22:54)
[2024-06-21] MEDS: BUPIVACAINE LIPOSOME 1.3% 266 MG/20 ML VIAL ONE (22:54)
--- NOTE | 2024-06-21 23:05 | Post Operative Brief Note ---
PG Immediate Post Op with CF Date of Surgery June 21, 2024 Pre & Post Diagnosis Operation Date: 06/21/24 21:10 Pre-Op Diagnosis: Free Intraperitoneal Air Post-Op Diagnosis: Perforated gastric ulcer I identified the patient and participated in the time-out.: Yes Procedure Operation Date: 06/21/24 21:10 Actual Procedures p Exploratory Laparotomy, abdominal washout, Uriel patch repair of perforated gastric ulcer (Not Applicable) - Flakito Rizzo DO, FACS Surgeon Flakito Rizzo DO, FACS [employer] Estimated Blood Loss 20 Findings Consistent with Post-Op Diagnosis 2200 cc of turbulent bilious fluid throughout the abdomen. 1 cm defect to the anterior gastric wall at the antrum, no obvious tumor. Repaired with 2-0 silk tie simple interrupted with leaf of omentum sewn secured with suture tails. SINCERE drains placed along stomach and into pelvis. 5 L irrigation used. Remainder of bowel and colon with no perforation, right colon with tattoo from prior colonoscopy. Specimens Specimen Description: Culture 1: Peritoneal Fluid-- For Routine Culture and Sensitivity, Gram Stain, Aerobes, Anaerobes Drains Burton Catheter and Arturo-Ornelas Drain Anesthesia Type General Complications none Disposition Accompanied Patient To Recovery: No Disposition: Surgical ICU
--- NOTE | 2024-06-21 23:29 | Operative Report ---
PG Post Operative Report Pre & Post Diagnosis Operation Date: 06/21/24 21:10 Pre-Op Diagnosis: Free Intraperitoneal Air Post-Op Diagnosis: Perforated Gastric Ulcer I identified the patient and participated in the time-out.: Yes Procedure Operation Date: 06/21/24 21:10 Actual Procedures p Exploratory Laparotomy, Gastric Washout, Repair of Perforated Gastric U lcer(Not Applicable) - Flakito Rizzo DO, NOELLE Surgeon Flakito Rizzo DO, NOELLE Lawn Mower Sharpener Bobo Chacon Estimated Blood Loss 20 Findings Consistent with Post-Op Diagnosis 2200 cc of turbulent bilious fluid throughout the abdomen. 1 cm defect to the anterior gastric wall at the antrum, no obvious tumor. Repaired with 2-0 silk tie simple interrupted with leaf of omentum sewn secured with suture tails. SINCERE drains placed along stomach and into pelvis. 5 L irrigation used. Remainder of bowel and colon with no perforation, right colon with tattoo from prior colonoscopy. Specimens Cultures of peritoneal Drains Right SINCERE along gastric body, left SINCERE in pelvis Anesthesia Type General Complications none Disposition Accompanied Patient To Recovery: No Disposition: Surgical ICU Indications 74-year-old female presented postprocedure day #1 following colonoscopy with abdominal pain, CT scan with significant ascites and pneumoperitoneum concerning for perforated viscus. Plan for exploratory laparotomy, possible bowel resection, possible ostomy and surgery as needed. The risks of the procedure were discussed, all questions were answered, and the patient agreed to proceed with surgery as planned. Description of Procedure The patient was properly identified, consented, and taken to the operating room where she was placed in the supine position. General endotracheal anesthesia was induced. A ferreira catheter, an NG tube, SCDs and a safety belt were placed. Preoperative antibiotics were administered. The patient's abdomen was prepped and draped in the standard sterile fashion. Surgical timeout was performed and all parties were in agreement that this was the correct patient and procedure to be performed and we continued as planned. A midline laparotomy incision was made and deepened down through the subcutaneous tissue with electrocautery. The fascia was encountered. The fascia was opened in the midline just above the umbilicus and entry into the peritoneum was confirmed. There was copious amounts of bile-stained, purulent fluid. This was sent for culture. The fascia was then opened both above and below the umbilicus. There was a large amount of fluid within the abdomen. A total of 2200 cc of fluid was suctioned out of the abdomen. The abdomen was then explored. I began by running the colon from the rectum proximally along the sigmoid colon and descending colon, back across the transverse colon, and down along the right colon. There was some peritoneal tattooing in the left pelvis. There was a tattoo in the cecum and ascending colon. This was originally suspected to be the site of perforation, but after careful exploration, there was no evidence of perforation at the site. I then ran the bowel from the terminal ileum proximally towards the ligament of Treitz. The bowel was mildly edematous and thickened but was obviously viable and there was no evidence of perforation. Next, we turned our attention to the stomach where a large hole was discovered in the anterior portion of the antrum, several centimeters proximal to the pylorus. This was approximately 1 to 1.5 cm in size and was full-thickness. The stomach was palpated around the perforation and there was no obvious tumor. We then proceeded to repair the perforation. This was closed in a vertical fashion using simple interrupted full-thickness 2-0 silk sutures. The tails were left long and a tongue of omentum was created using a LigaSure device. This was then secured to the repair by tying the tails of the suture over this, in a Uriel patch fashion. This was closely examined and there was no evidence of leak from this area. The NG tube was then confirmed to be in the stomach. Hemostasis was confirmed and the abdomen was copiously irrigated with 5 L of warm saline. 10 mm flat SINCERE drains were then placed. 1 drain exited to the right side of the incision and was placed along the body of the stomach. The second drain exited through the left side of the abdomen and was placed in the pelvis. Exparel mixed with 0.5% Marcaine was then injected along the fascia. The fascia was closed with a #1 looped PDS x 2. The wound was irrigated, and the skin was closed with roberto. A sterile dressing was placed over the wound. The drains were secured into place with 2-0 nylon sutures. The patient remained intubated and was taken to the ICU for recovery. All sponge, instrument and needle counts were correct at the conclusion of the procedure. The patient tolerated the procedure well. The physicians assistant at surgery was present and scrubbed for the entire the case. He was critical in positioning the patient, prepping and draping, retraction and exposure, repair of the gastric perforation, placement of the drains, closure of the fascia and incisions, placement of the dressings I attest to the content of the Intraoperative Record and any orders documented therein. Any exceptions are noted below.
--- NOTE | 2024-06-21 23:34 | Anesthesiology Progress Note ---
Date of Service June 21, 2024 Anesthesia Post Procedure Vital Signs Vital Signs: Temp Pulse Pulse Resp BP BP Pulse Ox 06/21/24 20:30 86 24 107/77 93 06/21/24 20:15 87 26 H 100/60 97 06/21/24 20:00 88 26 H 107/65 94 06/21/24 19:45 79 22 109/68 95 06/21/24 19:30 78 30 H 80/61 L 94 06/21/24 19:20 36.5 C 80 24 90/49 L 99 06/21/24 19:02 83 06/21/24 18:56 83 22 100/59 L 88 L 06/21/24 18:55 98 06/21/24 18:48 36.4 C L 83 20 98/55 L 98 O2 Del Method O2 Flow Rate 06/21/24 20:30 Nasal Cannula 4 06/21/24 20:15 Nasal Cannula 2 06/21/24 20:00 Nasal Cannula 5 06/21/24 19:45 Nasal Cannula 5 06/21/24 19:30 Nasal Cannula 4 06/21/24 19:20 Nasal Cannula 3 06/21/24 19:02 06/21/24 18:56 Room Air 06/21/24 18:55 Room Air 06/21/24 18:48 Room Air Transfer of Care Handoff Completed per policy Notes Mental Status: see notes below Patient Amnestic to Procedure: Yes Nausea / Vomiting: adequately controlled Pain: adequately controlled Airway Patency, RR, SpO2: see Notes below BP & HR: stable & adequate and see Notes below Hydration State: stable & adequate Anesthetic Complications: no major complications apparent and Pt Satisfied with anesthetic care Notes: pt remaina intubated on a phenylephrine drip. icu was preparing sedation for the patient when care was turned out. signout to icu nurse. tiger text sent to icu FRONT MAKER
[2024-06-21] MEDS ORDERED: PANTOPRAZOLE BOLUS/DRIP IV STA (23:40)
[2024-06-21] MEDS ORDERED: PANTOprazole 80 MG in DEXTROSE 5% 100 ML IV ONE (23:40)
--- NOTE | 2024-06-21 23:44 | Critical Care Consultation ---
Date of Consultation June 21, 2024 Assessment & Plan (1) Septic shock: Reason Critically Ill: 74-year-old female presents to the ICU with septic shock following perforated bowel with peritonitis, noted to have significant bowel leakage. She is now status post exploratory laparotomy, washout and bowel repair per general surgery. She was left intubated postop and admitted to ICU for further management. She is requiring low-dose vasopressor support. Neuro - Sedation: Fentanyl/Versed drips Cardiac - Shockpatient hypotensive requiring phenylephrine drip, likely due to underlying sepsis. See ID for management -Hold antihypertensives. Hold Lasix - Continue phenylephrine drip to maintain MAP greater than 65. Currently requiring low-dose vasopressor support, if requirements increase may need central line and A-line -Continue with fluid resuscitation as tolerated. - Random cortisol pending - Continuous monitor on telemetry HLDcontinue statin when appropriate Respiratory - Mechanical ventilationpatient left intubated following procedure. ABG reveals metabolic acidosis but no Underlying respiratory acidosis or hypoxia. She has no history of pulmonary disease. - Follow-up a.m. ABG and chest x-ray -Continues to eat tidal CO2 and pulse ox monitoring -Wean FiO2 as tolerated. Reassess for possible SBT this AM GI - Perforated bowelpatient found to have pneumoperitoneum on CT abdomen and pelvis and recent colonoscopy with multiple strictures. Patient now presents to the ICU status post exploratory laparotomy with washout and bowel repair. Per conversation with general surgery PA, patient was noted to have significant bowel spillage and likely peritonitis causing underlying sepsis. - Keep NPO. Nasal cannula to suction -Continue Protonix drip -Further management per general surgery. RENAL/LYTES - SONI on CKDpatient with significantly elevated creatinine of 3.8 on admission, likely due to sepsis with presumed ATN. - Will continue with fluid resuscitation. Maintain MAP greater than 65. Avoid nephrotoxins and renally adjust medications. -Monitor routine BMPs and replete electrolytes as indicated -Consider nephrology consult if no improvement Lactic acidosislikely due to underlying sepsis. Initial lactate of 4.0 postop. Will trend for now continue with supportive care. She did receive 1 amp of bicarb due to uncompensated acidosis on ABG. Will monitor closely - Foleystrict I's and O's ENDO - Gouthold allopurinol for now Hypothyroidismcontinue Synthroid when appropriate HEME - H&H stable, monitor routine CBC ID - Sepsislikely intra-abdominal source considering bowel perforation and peritonitis with significant bowel spillage. - Blood cultures and surgical culture pending - Continue meropenem for now LINES/IV ACCESS - Peripheral IVs DVT PROPHYLAXIS - SCDs, hold anticoagulation following surgical procedure I have personally spent 46 minutes of critical care time in the direct management of this patient. This is a life/limb threatening event. This includes time spent evaluating patient, direct bedside care, chart review, placing orders, interpretation of diagnostic studies, discussion with consultants, patient, and family members, as well as other required patient management activities. This time is exclusive of all separately billable procedures, and teaching time and separate from and in addition to any other critical care service time. Thank you for allowing us to participate in the care of this patient. Please refer to my attending physician's documentation for any further recommendations. (2) Perforated bowel: (3) Hyperparathyroidism: (4) Hypothyroidism: (5) HTN (hypertension): (6) Gout: History of Present Illness Attending Physician: Timi Robison Jr, MD History of Present Illness Patient is a 74-year-old female with past medical history of hyperparathyroidism, diastolic heart failure, CKD, HLD, HTN and recently underwent colonoscopy on 06/20 where she was found to have multiple ulcerated areas with potential strictures. This evening patient presented to the emergency department with abdominal pain, and CT abdomen which showed scattered pneumoperitoneum. Patient was evaluated by general surgery and taken to the OR emergently where she was found to have perforated gastric ulcer and underwent exploratory laparotomy with gastric washout and repair of perforated gastric ulcer. Patient was hypotensive and appears to have significant peritonitis. She is requiring vasopressor support and was left intubated following surgery. She now presents to the ICU for further management at this time. Allergies Allergy/AdvReac Type Severity Reaction Status Date / Time Penicillins Allergy Severe Anaphylaxis Verified 06/21/24 19:41 ciprofloxacin Allergy Intermediate myalgia Verified 06/21/24 19:41 [id number] Reductase AdvReac Intermediate muscle Verified 06/21/24 19:41 Inhibitor aches Home Medications Medication Instructions Recorded Confirmed Type antiarthritic combination no.2 900 450 mg PO BID 03/25/20 06/21/24 History mg tablet (glucosamine-chondroitin) ascorbate calcium (vitamin C) 500 500 mg PO QAM 03/25/20 06/21/24 History mg tablet cholecalciferol (vitamin D3) 50 50 mcg PO BID 03/25/20 06/21/24 History mcg (2,000 unit) tablet coQ10 (ubiquinol) 200 mg capsule 200 mg PO HS 03/25/20 06/21/24 History multivitamin 1 tab PO QAM 03/25/20 06/21/24 History Wheeled Walker #1 ea 10/13/22 06/21/24 Rx iodine 150 mcg tablet (Kelp 150 mcg PO QAM 10/16/22 06/21/24 History (iodine)) magnesium 250 mg tablet 250 mg PO HS 10/16/22 06/21/24 History diclofenac potassium 50 mg tablet 50 mg PO TID #270 tabs 10/13/23 06/21/24 Rx furosemide 40 mg tablet 40 mg PO DAILY #90 tabs 10/13/23 06/21/24 Rx alprazolam 0.5 mg tablet (Xanax) 0.5 mg PO HS #90 tabs 04/12/24 06/21/24 Rx levothyroxine 75 mcg tablet 75 mcg PO QAM #90 tabs 04/19/24 06/21/24 Rx (Synthroid) acetaminophen 500 mg capsule 1,000 mg PO TID PRN Pain 04/26/24 06/21/24 History calcium carbonate (Calcium 600) 600 mg PO HS 04/26/24 06/21/24 History clindamycin HCl 300 mg capsule 600 mg PO UD PRN dental procedure 04/26/24 06/21/24 History lysine 500 mg tablet 500 mg PO QAM Cold Sores 04/26/24 06/21/24 History rhubarb root extract 4 mg tablet 4 mg PO QAM 04/26/24 06/21/24 History (Estroven Complete Menopause Relief) sennosides 8.6 mg-docusate sodium 1 tab-cap PO DAILY PRN Constipation 04/26/24 06/21/24 History 50 mg tablet (Senokot-S) fluticasone propionate 50 2 spray intranasal QAM PRN sinus 05/16/24 06/21/24 Rx mcg/actuation nasal congestion #32 grams spray,suspension allopurinol 100 mg tablet 100 mg PO HS #90 tabs 05/17/24 06/21/24 Rx pramipexole 0.5 mg tablet 0.5 mg PO HS #90 tabs 05/18/24 06/21/24 Rx telmisartan 80 mg tablet (Micardis) 80 mg PO HS 30 days #90 tabs 05/18/24 06/21/24 Rx spironolactone 25 mg tablet 25 mg PO QAM #90 tabs 05/22/24 06/21/24 Rx nebivolol 10 mg tablet 10 mg PO QAM #90 tabs 06/07/24 06/21/24 Rx oxycodone 5 mg tablet 5 - 10 mg (1 - 2 x 5 mg) PO Q6 PRN 06/08/24 06/21/24 Rx pain #120 tabs atorvastatin 10 mg tablet 10 mg PO .every other day #90 tabs 06/12/24 06/21/24 Rx omega-3 fatty acids 1,000 mg 1,000 mg PO DAILY 06/21/24 06/21/24 History capsule vitamin B complex 1 tab PO DAILY 06/21/24 06/21/24 History Patient History Medical History Osteoarthritis Positive colorectal cancer screening using Cologuard test Neuropathy to see [facility] Neurology 06/2024 (new patient) Anemia History of COVID-19 06/2023: mild flu symptoms. Lumbar stenosis severe L4-L5. has had epidural steroid injections and physical therapy Hyperparathyroidism pt unsure of details Hypothyroidism Hyperlipidemia Hypertension Hx of gout never had symptoms, had elevated uric acid levels. Hx of basal cell carcinoma Chronic kidney disease, stage 3 to see [facility] Nephrology 05/2024 (as a new patient) Hx of migraines prior to menopause Surgical History S/P epidural steroid injection History of right hip replacement Hx of laparoscopy for tx endometriosis Hx of colonoscopy S/P Mohs surgery for basal cell carcinoma History of section Family History Brother Myocardial infarction Hypertension Smoker Grandmother (Maternal) Diabetes Father Hypertension Cancer bladder Stroke Myocardial infarction Mother Hypertension Asthma Congestive heart failure Myocardial infarction Sister Hypertension Eczema Denies family history of Ovarian cancer Prostate cancer Breast cancer Colorectal cancer Social History Smoking Status: Never smoker Second Hand Exposure: Yes (growing up until age 16); Do You Dip or Chew Tobacco: No; Hx Alcohol Use: Yes Alcohol type: beer and wine Alcohol Intake Frequency: Monthly or Less Hx Substance Use: No Preferred Language: Lao Communication Ability: Effective Visual Impairment: No Limitations Hearing Ability: Normal Emulsion Coater Required: No Beliefs That Will Affect Care: None marital status: / Current Living Situation: Alone current occupational status: employed 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 How many Children do You have: 1 Feels Safe at Home: Yes Childhood Exposure to Second-Hand Smoke: Yes Diet: regular caffeine: Yes during the past year weight has: remained stable Dental Care, Regularly: Yes Physical Activity Frequency: Daily Seatbelt Use: always Sunscreen Use: Yes Assistive Devices: Cane and Glasses Review of Systems Review of Systems: Unobtainable due to endotracheal tube Physical Exam Constitutional: + mechanically ventilated; no acute dist ress Eyes: PERRL, conjunctivae normal, anicteric sclerae ENMT: external ear and nose normal, oropharynx normal Neck: trachea midline, no thyromegaly Respiratory: normal respiratory effort, lungs clear to auscultation Cardiovascular: RRR, no murmur, no edema Heart Sounds: normal S1 and normal S2 Gastrointestinal (Abdomen): Abdomen distended, semifirm. Bowel sounds auscultated in all 4 quadrants. She has SINCERE drains x 2 with serosanguineous drainage. Abdominal incision is covered by surgical dressing without shadowing or drainage Musculoskeletal: no cyanosis or clubbing, extremities motor strength 5/5 Skin: no rashes, warm and dry Neurologic: Unable to assess due to sedation/paralytics Psychiatric: Unable to assess due to sedation/paralytics Genitourinary: Indwelling Burton catheter present. Urine yellow and concentrated Results & Data Results & Data Vital Signs (Past 12 Hours) Vital Signs Temp Pulse Pulse Resp BP BP Pulse Ox 06/21/24 23:18 35.8 C L 80 24 101/69 98 06/21/24 20:30 86 24 107/77 93 06/21/24 20:15 87 26 H 100/60 97 06/21/24 20:00 88 26 H 107/65 94 06/21/24 19:45 79 22 109/68 95 06/21/24 19:30 78 30 H 80/61 L 94 06/21/24 19:20 36.5 C 80 24 90/49 L 99 06/21/24 19:02 83 06/21/24 18:56 83 22 100/59 L 88 L 06/21/24 18:55 98 06/21/24 18:48 36.4 C L 83 20 98/55 L 98 O2 Del Method O2 Flow Rate FiO2 06/21/24 23:18 Mechanical Vent 50 06/21/24 20:30 Nasal Cannula 4 06/21/24 20:15 Nasal Cannula 2 06/21/24 20:00 Nasal Cannula 5 06/21/24 19:45 Nasal Cannula 5 06/21/24 19:30 Nasal Cannula 4 06/21/24 19:20 Nasal Cannula 3 06/21/24 19:02 06/21/24 18:56 Room Air 06/21/24 18:55 Room Air 06/21/24 18:48 Room Air Coding Level of Care Code 73535 CRITICAL CARE 1ST 30-74M Diagnoses Septic shock A41.9; R65.21 Perforated bowel K63.1 Hyperparathyroidism E21.3 Hypothyroidism E03.9 HTN (hypertension) I10 Gout M10.9
[2024-06-21] MEDS: fentaNYL citrate 2,500 MCG/250 ML BAG IV SCH (23:50)
[2024-06-21] MEDS ORDERED: STAT IV Infusion **Titration per Protocol STA (23:51)
[2024-06-21] MEDS: SODIUM CHLORIDE 0.9% 1,000 ML IV SCH (23:52)
[2024-06-21 23:59] LABS: iSTAT Allen Test Pass; iSTAT Art Bld Gas pCO2 Correct 32 mmHg (35-46); iSTAT Art Bld Gas pH Corrected 7.238 (7.35-7.45); iSTAT Arterial Blood Gas HCO3 14 meg/L (19-24); iSTAT Arterial Blood Gas pCO2 34 mmHg (35-46); iSTAT Arterial Blood Gas pH 7.22 (7.35-7.45); iSTAT Arterial Blood Gas pO2 81 mmHg (80-95); iSTAT Arterial Blood Gas pO2 C 76; iSTAT Carbon Dioxide 15 mmol/L (24-31); iSTAT FiO2 40 %; iSTAT Hematocrit 26 % (37-47); iSTAT Hemoglobin 8.8 g/dl (12.0-16.0); iSTAT Potassium 4.8 mmol/L (3.3-5.0); iSTAT Site L Radial; iSTAT Sodium 133 mmol/L (135-144)
[2024-06-22] MEDS: SODIUM BICARB 8.4% INJ 50 MEQ/50 ML SYR IV STA ×2 (00:15→07:31)
[2024-06-22] MEDS: PANTOprazole 80 MG in DEXTROSE 5% 100 ML IV ONE (00:28)
[2024-06-22 00:30] LABS: Hemoglobin 9.6 g/dl (12.0-16.0); Mean Corpuscular Hemoglobin 29.4 pg (25.0-34.0); Mean Corpuscular Volume 94.8 fL (80.0-100.0); Platelet Count 295 K/uL (130-400); RDW Coefficient of Variation 13.4 % (11.5-14.5); RDW Standard Deviation 46.3 fL (36.4-46.3); Red Blood Count 3.27 M/uL (4.20-5.40)
[2024-06-22] MEDS: FAMOTIDINE/PF 20 MG/2 ML VIAL IV ONE (00:32)
[2024-06-22] MEDS: NOREPINEPHRINE/D5W 4 MG/250 ML IV ONE (00:32)
[2024-06-22] MEDS: fentaNYL citrate 2,500 MCG/250 ML BAG IV ONE (00:33)
[2024-06-22] MEDS: MIDAZOLAM HCL 125MG/250ML D5W IV ONE (00:33)
[2024-06-22] MEDS: PROPOFOL IV EMULSION 10 MG/ML 100 ML VIAL IV ONE (00:33)
[2024-06-22] MEDS: MIDAZOLAM HCL 125 MG/250 ML BAG IV SCH (00:38)
[2024-06-22] MEDS: PLASMA-LYTE A 1,000 ML IV SCH (00:39)
[2024-06-22] MEDS: MEROPENEM 500 MG in SYRINGE 0 ML IV ONE (00:39)
[2024-06-22] MEDS: SODIUM BICARB 8.4% INJ 50 MEQ/50 ML SYR IV ONE (00:40)
[2024-06-22] MEDS: PHENYLEPHRINE/NSS 25 MG/250 ML BAG IV SCH (00:45)
[2024-06-22] MEDS: PANTOprazole 40 MG in DEXTROSE 5% MINI-B 100 ML IV SCH ×2 (00:56→05:10)
[2024-06-22 01:01] LABS: Albumin Globulin Ratio 0.9 (0.9-2); Albumin Level 2.4 gm/dl (3.4-5.0); BUN Creatinine Ratio 15.9 (10-20); Bilirubin,Total 0.3 mg/dl (0.2-1.0); Calcium 11.8 mg/dl (8.6-10.3); Creatinine Clr Calc Pharmacy 15.4 ml/min; Est GFR (African American) 16.7 ml/min; Est GFR (Non-African American) 14.4 ml/min; Globulin 2.6 gm/dl (2.5-4.0); Magnesium 1.8 mg/dl (1.7-2.4)
[2024-06-22] MEDS: metroNIDAZOLE 500 MG/100 ML BAG IV SCH (01:40)
[2024-06-22] MEDS: CIPROFLOXACIN / D5W 400 MG/200 ML BAG IV SCH (01:41)
[2024-06-22 03:52] LABS: iSTAT Allen Test Pass; iSTAT Art Bld Gas pCO2 Correct 34 mmHg (35-46); iSTAT Art Bld Gas pH Corrected 7.288 (7.35-7.45); iSTAT Arterial Blood Gas HCO3 16 meg/L (19-24); iSTAT Arterial Blood Gas pCO2 34 mmHg (35-46); iSTAT Arterial Blood Gas pH 7.29 (7.35-7.45); iSTAT Arterial Blood Gas pO2 103 mmHg (80-95); iSTAT Arterial Blood Gas pO2 C 103; iSTAT Carbon Dioxide 17 mmol/L (24-31); iSTAT FiO2 40 %; iSTAT Hematocrit 27 % (37-47); iSTAT Hemoglobin 9.2 g/dl (12.0-16.0); iSTAT Potassium 5.6 mmol/L (3.3-5.0); iSTAT Site L Radial; iSTAT Sodium 133 mmol/L (135-144)
[2024-06-22 05:39] LABS: iSTAT Creatinine 1.1 mg/dl (0.6-1.3); iSTAT Hemoglobin 14.3 g/dl (12.0-16.0); iSTAT Ionized Calcium 1.15 mmol/l (1.12-1.32); iSTAT Potassium 4.7 mmol/L (3.3-5.0)
[2024-06-22 06:30] LABS: BUN Creatinine Ratio 15.1 (10-20); Calcium 10.4 mg/dl (8.6-10.3); Est GFR (African American) 14.9 ml/min; Est GFR (Non-African American) 12.9 ml/min; Magnesium 1.8 mg/dl (1.7-2.4); Phosphorus 5.9 mg/dl (2.5-4.9); Potassium 5.9 mmol/L (3.5-5.1)
[2024-06-22 06:32] LABS: Appearance Urine Turbid (Clear); Bacteria Urine Automated None Seen (None Seen); Bilirubin Urine Negative (Negative); Blood Urine Trace (Negative); Color Urine Yellow; Glucose Urine UA Negative (Negative); Ketones Urine Trace (Negative); Leukocyte Esterase Urine Trace (Negative); Nitrite Urine Negative (Negative); Protein Urine 1+ (Negative); RBC Urine Automated 0-2 /hpf (0-2); Specific Gravity Urine 1.023 (1.000-1.030); Urobilinogen Urine Negative (Negative); WBC Urine Automated 0-5 /hpf (0-5)
[2024-06-22 06:34] LABS: Cast Urine Automated 0-2 /lpf (0-2)
[2024-06-22 06:49] LABS: Hematocrit (blood only) 29.9 % (37.0-47.0); Hemoglobin 9.5 g/dl (12.0-16.0); Mean Corpuscular Hemoglobin 29.4 pg (25.0-34.0); Mean Corpuscular Hgb Conc 31.8 g/dL (32.0-36.0); Mean Corpuscular Volume 92.6 fL (80.0-100.0); Mean Platelet Volume 9.5 fL (9.4-12.4); Platelet Count 339 K/uL (130-400); RDW Coefficient of Variation 13.4 % (11.5-14.5); RDW Standard Deviation 45.5 fL (36.4-46.3); Red Blood Count 3.23 M/uL (4.20-5.40); White Blood Count 2.73 K/ul (4.8-10.8)
[2024-06-22] MEDS: fentaNYL BOLUS from BAG IV PRN (06:52)
[2024-06-22] MEDS: MIDAZOLAM BOLUS FROM BAG IV PRN (06:52)
[2024-06-22 06:54] LABS: ANC (manual) 1.83 K/uL (1.4-6.5); Echinocytes 2+; Lymphocytes % (manual) 22 %; Metamyelocytes # (manual) 0.25 K/uL (0-0); Metamyelocytes % (manual) 9 %; Monocytes # (manual) 0.05 K/uL (0.11-0.59); Monocytes % (manual) 2 %; Neutrophils # (manual) 1.83 K/uL (1.40-6.50); Neutrophils % (manual) 67 %
[2024-06-22] MEDS ORDERED: STAT IV/IM STA (07:19)
[2024-06-22] MEDS: MAGNESIUM SULFATE / D5W 1 GM/100 ML BAG IV SCH (07:21)
--- NOTE | 2024-06-22 07:32 | XRay Report ---
SINGLE VIEW CHEST CLINICAL HISTORY: Dyspnea FINDINGS: An AP, portable, upright chest radiograph is compared to study dated 10/22/2022. The heart is mildly enlarged noting atherosclerotic calcification of the thoracic aorta. The pulmonary vasculat ure is noncongested. Chronic interstitial thickening is similar to previous. Suspected trace left ple ural effusion. Atelectasis is noted at the lung bases. No pneumothorax is seen. The the skeletal stru ctures are osteopenic. The bony thorax is grossly intact. Calcific tendinopathy is noted in the right shoulder. Intraperitoneal free air is seen below the left hemidiaphragm. IMPRESSION: 1. Mild cardiomegaly without radiographic evidence of congestive failure. 2. Suspect a small left pleural effusion. 3. Intraperitoneal free air is seen below the left hemidiaphragm. This was better assessed on today's abdominal CT. ACT 112: Negative or not required by law. Electronically signed by: Esteban Wilson M.D. 06/22/2024 7:31 AM
[2024-06-22] MEDS: SODIUM BICARBONATE 8.4% 150 MEQ in DEXTROSE 5% 1,000 ML IV SCH (07:35)
--- OUTSIDE RECORDS SUMMARY | 2024-06-22 08:03 | External Medical Summary | Continuity of Care Document ---
Author Name Unknown Organization [facility] Address [address] [place] [id number] Care Team Providers Care Promotional Model Name Role Phone Mychal Hall Sam Primary Care Physician [phone] [facility] [id number] Date(s): 06/06/24 - 06/06/[address] [phone] Discharge Disposition: Home or Self Care Attending Physician: MD Canela Jeffrey S Referring Physician: MD Canela Jeffrey S Allergies, Adverse Reactions, Alerts Substance Criticality Severity Reaction Reaction Severity Status penicillins anaphylaxis Active Cipro Body aches Active statins muscle aches Active Medications allopurinol 100 mg oral tablet Start: 06/14/18 2:31:00 PM EDT, 1 tab, PO, Daily Start Date: 06/14/18 Status: Ordered ALPRAZolam 0.5 mg oral tablet Start: 09/14/17 9:03:00 AM EST, 1 tab, PO, qhs Start Date: 09/14/17 Status: Ordered atorvastatin 10 mg oral tablet Start: 09/14/17 9:03:00 AM EST, 1 tab, PO, Daily, Takes three times per week Start Date: 09/14/17 Status: Ordered calcium carbonate 750 mg oral tablet, chewable Start: 09/14/17 9:08:00 AM EST, 1 tab, PO, Daily Start Date: 09/14/17 Status: Ordered Chondroitin-Glucosamine Start: 09/14/17 9:07:00 AM EST, 1 tab, PO, Daily Start Date: 09/14/17 Status: Ordered diclofenac sodium 75 mg oral delayed release tablet Start: 09/14/17 9:03:00 AM EST, 1 tab, PO, bid Start Date: 09/14/17 Status: Ordered EPA Fish Oil 1000 mg oral capsule Start: 09/14/17 9:07:00 AM EST, 1 cap, PO, Daily Start Date: 09/14/17 Status: Ordered furosemide 40 mg oral tablet Start: 03/30/23 2:16:00 PM EDT, 1 tab, PO, Daily Start Date: 03/30/23 Status: Ordered levothyroxine 75 mcg (0.075 mg) oral tablet Start: 09/14/17 9:03:00 AM EST, 1 tab, PO, Daily Start Date: 09/14/17 Status: Ordered lysine 500 mg oral tablet Start: 08/05/21 3:11:00 PM EDT, 1 tab, PO, Daily Start Date: 08/05/21 Status: Ordered magnesium oxide 250 mg oral tablet Start: 09/14/17 9:08:00 AM EST, 1 tab, PO, Daily Start Date: 09/14/17 Status: Ordered Micardis 80 mg oral tablet Start: 06/20/19 2:55:00 PM EDT, 1 tab, PO, Daily Start Date: 06/20/19 Status: Ordered multivitamin Start: 09/14/17 9:07:00 AM EST, 1 tab, PO, Daily Start Date: 09/14/17 Status: Ordered Nasonex 50 mcg/inh nasal spray Start: 09/14/17 9:05:00 AM EST, 2 spray, each nostril, Daily, PRN: as needed for allergy symptoms Start Date: 09/14/17 Status: Ordered nebivolol 10 mg oral tablet Start: 03/30/23 2:16:00 PM EDT, 1 tab, PO, Daily Start Date: 03/30/23 Status: Ordered oxyCODONE 5 mg oral tablet take 1 tablet by mouth every 6 hours MAXIMUM DAILY DOSE OF 20 milligrams Start Date: 12/19/19 Status: Ordered pramipexole 0.5 mg oral tablet TAKE 1 TABLET BY MOUTH AT BEDTIME 2 TO 3 HOURS BEFORE BEDTIME Start Date: 04/17/24 Status: Ordered spironolactone 25 mg oral tablet TAKE 1 TABLET BY MOUTH ONCE DAILY Start Date: 04/17/24 Status: Ordered ubiquinone 200 mg oral capsule Start: 09/14/17 9:06:00 AM EST, 1 tab, PO, Daily Start Date: 09/14/17 Status: Ordered unknown medication Start: 08/05/21 3:11:00 PM EDT, 1 tab, PO, bid, Factor 5 for joint pain Start Date: 08/05/21 Status: Ordered unlisted medication Start: 09/14/17 9:08:00 AM EST Start Date: 09/14/17 Status: Ordered unlisted medication Start: 09/14/17 9:09:00 AM EST Start Date: 09/14/17 Status: Ordered Vitamin B Complex Start: 09/14/17 9:05:00 AM EST, 1 tab, PO, Daily Start Date: 09/14/17 Status: Ordered Vitamin C 100 mg oral tablet, chewable Start: 09/14/17 9:07:00 AM EST, 1 tab, PO, Daily Start Date: 09/14/17 Status: Ordered Vitamin D3 2000 intl units oral capsule Start: 09/14/17 9:06:00 AM EST, 1 tab, PO, Daily Start Date: 09/14/17 Status: Ordered vitamin E Start: 09/14/17 9:07:00 AM EST, 400iu, PO, Daily Start Date: 09/14/17 Status: Ordered Problem List Condition Confirmation Course Effective Dates Status H ealth Status Informant Back pain Confirmed Active Basal cell carcinoma of forehead Confirmed Active Pain in both feet Confirmed Active Elevated cholesterol Confirmed Active HTN (hypertension) Confirmed Active Hypothyroidism Confirmed Active Neuropathy Confirmed Active Plantar fasciitis, bilateral Confirmed Active Procedures Procedure Date Related Diagnosis Body Site Status Surgery 1 10/2022 Completed Cortisone injection given 01/26/22 Completed Mohs' micrographic surgery 11/10/17 Completed Shave biopsy 2 09/14/17 Completed delivery Complet ed LAPAROSCOPIC PROC Complet ed 1right total hip replacement 2right forehead Results Anatomic Pathology Reports * Report Case Number Specimen Responsible Pathologist Report Status Surgical Pathology Consult Report [id number] MD Ina, Shaan; Final * Event Display: [place] Disclaimer The following statement applies to flow cytometry, immunohistochemical, histochemical, molecular genetics, immunofluorescence, and in situ hybridization assays. These tests were developed and their performance characteristics determined by a [facility] Department of Pathology Laboratory. All controls show appropriate reactivity. Not all tests have been cleared or approved by the U.S. Food and Drug Administration. The FDA has determined that such clearance or approval is not necessary. For decalcified specimen types, focused validation may have been done that may or may not apply to all decalcified specimen types. Results should be interpreted with caution. MD Buckley Guoli:VERIFY; Authored Date: [id number] * Event Display: [place] Dx 1. Colon, "colonic stricture and mass" biopsy ([id number]; 05/09/2024): -Fragments of colonic mucosa with focal ulceration and reactive changes (see note). Note: The clinical impression of a mass lesion is noted. There is focal mild epithelial atypia associated with ulceration and it is favored to represent a reactive change. No diagnostic evidence of neoplasm/malignancy is identified in the received outside sections despite multiple tissue levels examined, but which does not exclude the possibility of an unsampled tumor. Another sampling is recommended if clinically indicated. Shaan Buckley MD (Electronically signed by) Verified: 06/08/2024 15:25 EDT Performing Location: [facility] MD Buckley Guoli:VERIFY; Authored Date: [id number] * Event Display: [place] Slide/Block Desc 1 Colon, colonic stricture, mass biopsy; ([id number]; 05/09/2024) Received are 6 slides and pathology report. Slides will be returned. [facility] Department of Pathology [address] [place] [phone] Fax MD Buckley Guoli:VERIFY; Authored Date: [id number] * Event Display: [place] Clinical History Colon cancer screening. Procedure performed: Colonoscopy. MD Buckley Guoli:VERIFY; Authored Date: [id number] Social History Social History Type Response Smoking Status Never smoked cigaret otis Sex Female Sex Representation Female (finding) Patient Care team information Care Team Personnel Name: MD Hall Stephen J Position: Referring Member Role: Primary Care Provider Address: [facility] [address] [address] [place] Care Team Related Persons Name: HEMAL ZURITA
[2024-06-22] MEDS: INSULIN HUMAN REGULAR PER UNIT 6 UNITS in SYRINGE 5.94 ML IV ONE (08:32)
[2024-06-22] MEDS: DEXTROSE 50% 50 ML SYRINGE IV STA (08:32)
[2024-06-22] MEDS: SODIUM CHLORIDE 0.9% 500 ML IV ONE (08:33)
--- NOTE | 2024-06-22 08:34 | XRay Report ---
XR chest 1V portable HISTORY: Resp failure COMPARISON: Chest 06/21/2024. FINDINGS: Endotracheal tube terminates 4.1 cm and the alex. Nasogastric tube terminates below the d iaphragm. The tip is not included on this study. No pneumothorax. Trace bilateral pleural effusions a nd bibasilar linear densities persist. No evidence for pulmonary edema. The heart remains enlarged. A surgical drain is seen within the upper abdomen. IMPRESSION: 1. Satisfactory support line placement. 2. Trace bilateral pleural effusions and bibasilar linear densities persist. ACT 112: Negative or not required by law. Electronically signed by: eMmo Lozada M.D. 06/22/2024 8:32 AM
--- NOTE | 2024-06-22 10:14 | Critical Care Progress Note ---
Date of Service June 22, 2024 Assessment & Plan (1) Septic shock: (2) Perforated bowel: (3) SONI (acute kidney injury): (4) Hyperkalemia: Plan 74-year-old female status post exploratory laparotomy postop day 1. She had a perforated gastric ulcer. She had a gastric washout and repair of the perforated gastric ulcer. She presents now with septic shock. She was extubated successfully today. She has ongoing SONI with hyperkalemia. Repeat BMP pending. May need to pursue hemodialysis and dialysis catheter placement depending on follow-up labs and urine output. Not a candidate for oral potassium binders due to n.p.o. status. NG tube currently in place and hooked up to low intermittent wall suction. Continue bicarbonate infusion and crystalloids to help keep urine output and blood pressures. EF noted and is hyperdynamic with an EF of greater than 70%. Continue meropenem for source of intra-abdominal sepsis. Follow-up cultures as the come back. Continue pantoprazole infusion due to gastric perforation. CRITICAL CARE TIME I have personally spent 48 minutes of critical care time in the direct management of this patient. This is a life/limb threatening event. This includes time spent evaluating patient, direct bedside care, chart review, placing orde rs, interpretation of diagnostic studies, discussion with consultants, patient, and family members, as well as other required patient management activities. This time is exclusive of all separately billable procedures, and teaching time and separate from and in addition to any other critical care service time. Admission and Anticipated Discharge Date Admission Date: June 21, 2024 Subjective Patient doing well on spontaneous breathing trial. Successfully extubated. Alert and oriented. Following commands. Review of Systems Review of Systems: All systems reviewed & are unremarkable except as noted in HPI & below Physical Exam Constitutional: + mechanically ventilated; no acute dist ress Eyes: PERRL, conjunctivae normal, anicteric sclerae ENMT: external ear and nose normal, oropharynx normal Neck: trachea midline, no thyromegaly Respiratory: normal respiratory effort, lungs clear to auscultation Cardiovascular: RRR, no murmur, no edema Heart Sounds: normal S1 and normal S2 Gastrointestinal (Abdomen): Abdomen distended, semifirm. Bowel sounds auscultated in all 4 quadrants. She has SINCERE drains x 2 with serosanguineous drainage. Abdominal incision is covered by surgical dressing without shadowing or drainage Musculoskeletal: no cyanosis or clubbing, extremities motor strength 5/5 Skin: no rashes, warm and dry Neurologic: Following all commands. Psychiatric: Mildly anxious appearing. Genitourinary: Indwelling Burton catheter present. Urine yellow and concentrated Results & Data Results & Data Vital Signs (Past 12 Hours) Vital Signs Temp Pulse Pulse Resp BP BP Pulse Ox 06/22/24 09:09 06/22/24 09:06 37.6 C H 97 H 21 94 06/22/24 08:45 37.7 C H 93 H 19 94 06/22/24 08:45 99/57 L 06/22/24 08:39 37.8 C H 92 H 20 93 06/22/24 08:30 111/56 L 06/22/24 08:18 37.9 C H 87 20 97 06/22/24 08:15 37.9 C H 85 18 96 06/22/24 08:15 109/64 06/22/24 08:15 109/64 06/22/24 08:15 109/64 06/22/24 08:10 99/59 L 06/22/24 08:10 99/59 L 06/22/24 08:09 37.9 C H 78 22 97 06/22/24 08:06 37.9 C H 79 22 97 06/22/24 08:00 95/60 L 06/22/24 08:00 95/60 L 06/22/24 07:57 37.9 C H 80 22 97 06/22/24 07:49 99/61 L 06/22/24 07:21 76 22 96 06/22/24 07:15 95/64 L 06/22/24 07:15 95/64 L 06/22/24 07:15 95/64 L 06/22/24 07:00 88/60 L 06/22/24 06:37 80 06/22/24 06:00 37.8 C H 82 22 94/67 L 97 06/22/24 06:00 06/22/24 05:55 37.8 C H 80 22 97 06/22/24 05:45 37.8 C H 80 22 104/59 L 99 06/22/24 05:30 37.8 C H 81 22 95/63 L 97 06/22/24 05:00 37.7 C H 78 22 95/60 L 98 06/22/24 05:00 37.8 C H 82 22 06/22/24 04:30 96/57 L 06/22/24 04:30 96/57 L 06/22/24 04:24 37.6 C H 80 22 98 06/22/24 04:15 90/62 L 06/22/24 04:12 37.5 C 81 22 97 06/22/24 04:00 37.8 C H 81 22 98 06/22/24 04:00 06/22/24 03:45 37.5 C 83 22 97 06/22/24 03:45 87/58 L 06/22/24 03:44 79 22 97 06/22/24 03:36 37.4 C 85 22 97 06/22/24 03:30 97/61 L 06/22/24 03:30 37.6 C H 81 22 97/61 L 98 06/22/24 03:00 37.7 C H 06/22/24 02:00 36.6 C 82 22 86/56 L 97 06/22/24 02:00 37.7 C H 81 22 98 06/22/24 01:30 36.2 C L 77 22 89/62 L 99 06/22/24 01:00 36.0 C L 80 22 93/60 L 97 06/22/24 01:00 37.7 C H 81 22 98 06/22/24 00:45 36.0 C L 80 22 86/57 L 97 06/22/24 00:20 35.9 C L 81 22 106/64 98 06/22/24 00:00 85 22 96/63 L 93 06/21/24 23:50 83 22 89/61 L 98 06/21/24 23:45 83 22 102/66 98 06/21/24 23:40 83 06/21/24 23:40 35.8 C L 83 22 104/64 98 06/21/24 23:35 35.8 C L 97 H 22 95/65 L 97 06/21/24 23:28 35.8 C L 78 22 83/62 L 99 06/21/24 23:20 06/21/24 23:18 35.8 C L 80 24 101/69 98 06/21/24 23:05 84 22 96 O2 Del Method O2 Flow Rate FiO2 06/22/24 09:09 Nasal Cannula 2 06/22/24 09:06 06/22/24 08:45 06/22/24 08:45 06/22/24 08:39 06/22/24 08:30 06/22/24 08:18 06/22/24 08:15 06/22/24 08:15 06/22/24 08:15 06/22/24 08:15 06/22/24 08:10 06/22/24 08:10 06/22/24 08:09 06/22/24 08:06 06/22/24 08:00 06/22/24 08:00 06/22/24 07:57 06/22/24 07:49 06/22/24 07:21 35 06/22/24 07:15 06/22/24 07:15 06/22/24 07:15 06/22/24 07:00 06/22/24 06:37 06/22/24 06:00 Mechanical Vent 40 06/22/24 06:00 40 06/22/24 05:55 Mechanical Vent 40 06/22/24 05:45 Mechanical Vent 40 06/22/24 05:30 Mechanical Vent 40 06/22/24 05:00 Mechanical Vent 40 06/22/24 05:00 Mechanical Vent 06/22/24 04:30 06/22/24 04:30 06/22/24 04:24 06/22/24 04:15 06/22/24 04:12 06/22/24 04:00 Mechanical Vent 40 06/22/24 04:00 40 06/22/24 03:45 06/22/24 03:45 06/22/24 03:44 40 06/22/24 03:36 06/22/24 03:30 06/22/24 03:30 Mechanical Vent 40 06/22/24 03:00 Mechanical Vent 40 06/22/24 02:00 Mechanical Vent 40 06/22/24 02:00 Mechanical Vent 40 06/22/24 01:30 Mechanical Vent 40 06/22/24 01:00 Mechanical Vent 40 06/22/24 01:00 Mechanical Vent 40 06/22/24 00:45 Mechanical Vent 40 06/22/24 00:20 Mechanical Vent 40 06/22/24 00:00 Mechanical Vent 40 08/28/24 23:50 Mechanical Vent 40 06/21/24 23:45 Mechanical Vent 40 06/21/24 23:40 06/21/24 23:40 Mechanical Vent 40 06/21/24 23:35 Mechanical Vent 50 06/21/24 23:28 Mechanical Vent 50 06/21/24 23:20 Mechanical Vent 40 06/21/24 23:18 Mechanical Vent 50 06/21/24 23:05 40 Coding Level of Care Code 01961 CRITICAL CARE 1ST 30-74M Diagnoses Septic shock A41.9; R65.21 Perforated bowel K63.1 SONI (acute kidney injury) N17.9 Hyperkalemia E87.5
[2024-06-22 10:32] LABS: Alanine Aminotransferase 139 U/L (7-52); Alkaline Phosphatase 51 U/L (34-104); Anion Gap 12 (3-11); Aspartate Aminotransferase 139 U/L (13-39); BUN Creatinine Ratio 15.3 (10-20); Bilirubin,Total 0.3 mg/dl (0.2-1.0); Blood Urea Nitrogen 56 mg/dl (6-23); Calcium 9.9 mg/dl (8.6-10.3); Carbon Dioxide 14 mmol/L (21-32); Chloride 108 mmol/L (98-107); Creatinine Clr Calc Pharmacy 12.7 ml/min; Est GFR (African American) 13.2 ml/min; Est GFR (Non-African American) 11.4 ml/min; Glucose 166 mg/dl (70-99(Fasting)); Sodium 134 mmol/L (136-145); Total Protein 4.4 gm/dl (6.0-8.3)
[2024-06-22] MEDS ORDERED: SODIUM CHLORIDE 0.9% 1,000 ML IV PRN (10:44)
--- NOTE | 2024-06-22 11:13 | Nephrology Consultation ---
Date of Consultation June 22, 2024 Assessment & Plan (1) SONI (acute kidney injury): * SONI due to septic shock related to perforated gastric ulcer in the setting of chronic NSAID use, ARB and loop diuretic therapy * SONI is now complicated by oliguria, hyperkalemia and high AGA * Vascular access placement, indications/benefits/risks/alternatives to HD discussed w/ patient this morning. She is agreeable to HD if needed * POC discussed w/ ICU team this am. Recommend initiation of HD for correction of electrolyte abnormalities. No UF as patient remains hypotensive requiring IVF and pressor support * ICU team will place temporary HD catheter. HD orders have been placed in EMR and HD RN notified * Monitor BMP, UO * Continue to hold diclofenac, furosemide, spironolactone and telmisartan (2) Chronic kidney disease, stage 3: * CKD stage G3b (moderate impairment). Baseline Cr 1.0-1.1 w/ EGFR 45 cc/min. Rrenal impairment is likely on the basis of microvascular disease. (3) Hyperkalemia: * K 5.9 this am. Repeat testing pending. Patient would benefit from HD to correct metabolic acidosis and hyperkalemia. Medical management options are limited due to recent abdominal surgery (4) Free intraperitoneal air: * Repair of perforated gastric ulcer 06/21/24 * Continue IV PPI therapy (5) Septic shock: * On IV phenylephrine to maintain MAP 65 or above * Continue IV Cipro/Flagyl History of Present Illness Reason for Consultation: SONI/CKD Attending Physician: Flakito Rizzo DO, NOELLE History of Present Illness Ms. Chase is a 74 year old white female who is see at the request of the ICU team for evaluation of SONI/CKD. Information for the HPI is obtained from direct patient interview and review of the EMR. HPI is summarized as follows: Ms. Chase has CKD stage G3b (moderate impairment). Baseline Cr 1.0-1.1 w/ EGFR 45 cc/min. She has not undergone nephrology evaluation in the past. Her renal impairment is likely on the basis of microvascular disease. Ms. Chase reports a longstanding h/o chronic back pain. She had been taking diclofenac 50 mg TID on a regular basis for several years. Recently she completed a Cologuard study which was positive. 06/20/24 she underwent colonoscopy. She then prese nted to the [facility] EMD 06/21/24 with abdominal pain and dizziness. SBP was mid 80's, noncontrast abdominal CT revealed pneumoperitoneum c/w intestinal perforation. Volume resuscitation, pressor support and antibiotics were provided. 06/21/24 exploratory laparotomy revealed a 1 cm defect involving the anterior wall of the stomach. This was surgically repaired. In the ICU this morning, patient is awake and alert. BP 90's systolic. She remains on phenylephrine for pressure support. UO has only been 260 cc since admission. K5.9, HCO3 14, Cr 3.6. Vascular access, indications/benefits/risks/alternatives to HD were discussed in detail w/ patient. She voiced understanding and is agreeable to HD if needed. Allergies Allergy/AdvReac Type Severity Reaction Status Date / Time Penicillins Allergy Severe Anaphylaxis Verified 06/21/24 19:41 ciprofloxacin Allergy Intermediate myalgia Verified 06/21/24 19:41 [id number] Reductase AdvReac Intermediate muscle Verified 06/21/24 19:41 Inhibitor aches Home Medications Medication Instructions Recorded Confirmed Type antiarthritic combination no.2 900 450 mg PO BID 03/25/20 06/21/24 History mg tablet (glucosamine-chondroitin) ascorbate calcium (vitamin C) 500 500 mg PO QAM 03/25/20 06/21/24 History mg tablet cholecalciferol (vitamin D3) 50 50 mcg PO BID 03/25/20 06/21/24 History mcg (2,000 unit) tablet coQ10 (ubiquinol) 200 mg capsule 200 mg PO HS 03/25/20 06/21/24 History multivitamin 1 tab PO QAM 03/25/20 06/21/24 History Wheeled Walker #1 ea 10/13/22 06/21/24 Rx iodine 150 mcg tablet (Kelp 150 mcg PO QAM 10/16/22 06/21/24 History (iodine)) magnesium 250 mg tablet 250 mg PO HS 10/16/22 06/21/24 History diclofenac potassium 50 mg tablet 50 mg PO TID #270 tabs 10/13/23 06/21/24 Rx furosemide 40 mg tablet 40 mg PO DAILY #90 tabs 10/13/23 06/21/24 Rx alprazolam 0.5 mg tablet (Xanax) 0.5 mg PO HS #90 tabs 04/12/24 06/21/24 Rx levothyroxine 75 mcg tablet 75 mcg PO QAM #90 tabs 04/19/24 06/21/24 Rx (Synthroid) acetaminophen 500 mg capsule 1,000 mg PO TID PRN Pain 04/26/24 06/21/24 History calcium carbonate (Calcium 600) 600 mg PO HS 04/26/24 06/21/24 History clindamycin HCl 300 mg capsule 600 mg PO UD PRN dental procedure 04/26/24 History lysine 500 mg tablet 500 mg PO QAM Cold Sores 04/26/24 06/21/24 History rhubarb root extract 4 mg tablet 4 mg PO QAM 04/26/24 06/21/24 History (Estroven Complete Menopause Relief) sennosides 8.6 mg-docusate sodium 1 tab-cap PO DAILY PRN Constipation 04/26/24 06/21/24 History 50 mg tablet (Senokot-S) fluticasone propionate 50 2 spray intranasal QAM PRN sinus 05/16/24 06/21/24 Rx mcg/actuation nasal congestion #32 grams spray,suspension allopurinol 100 mg tablet 100 mg PO HS #90 tabs 05/17/24 06/21/24 Rx pramipexole 0.5 mg tablet 0.5 mg PO HS #90 tabs 05/18/24 06/21/24 Rx telmisartan 80 mg tablet (Micardis) 80 mg PO HS 30 days #90 tabs 05/18/24 06/21/24 Rx spironolactone 25 mg tablet 25 mg PO QAM #90 tabs 05/22/24 06/21/24 Rx nebivolol 10 mg tablet 10 mg PO QAM #90 tabs 06/07/24 06/21/24 Rx oxycodone 5 mg tablet 5 - 10 mg (1 - 2 x 5 mg) PO Q6 PRN 06/08/24 06/21/24 Rx pain #120 tabs atorvastatin 10 mg tablet 10 mg PO .every other day #90 tabs 06/12/24 06/21/24 Rx omega-3 fatty acids 1,000 mg 1,000 mg PO DAILY 06/21/24 06/21/24 History capsule vitamin B complex 1 tab PO DAILY 06/21/24 06/21/24 History Patient History Medical History Osteoarthritis Positive colorectal cancer screening using Cologuard test Neuropathy to see [facility] Neurology 06/2024 (new patient) Anemia History of COVID-19 06/2023: mild flu symptoms. Lumbar stenosis severe L4-L5. has had epidural steroid injections and physical therapy Hyperparathyroidism pt unsure of details Hypothyroidism Hyperlipidemia Hypertension Hx of gout never had symptoms, had elevated uric acid levels. Hx of basal cell carcinoma Chronic kidney disease, stage 3 to see [facility] Nephrology 05/2024 (as a new patient) Hx of migraines prior to menopause Surgical History S/P epidural steroid injection History of right hip replacement Hx of laparoscopy for tx endometriosis Hx of colonoscopy S/P Mohs surgery for basal cell carcinoma History of section Family History Brother Myocardial infarction Hypertension Smoker Grandmother (Maternal) Diabetes Father Hypertension Cancer bladder Stroke Myocardial infarction Mother Hypertension Asthma Congestive heart failure Myocardial infarction Sister Hypertension Eczema Denies family history of Ovarian cancer Prostate cancer Breast cancer Colorectal cancer Social History Smoking Status: Never smoker Second Hand Exposure: Yes (growing up until age 16); Do You Dip or Chew Tobacco: No; Hx Alcohol Use: Yes Alcohol type: beer and wine Alcohol Intake Frequency: Monthly or Less Hx Substance Use: No Preferred Language: [place] Communication Ability: Effective Visual Impairment: No Limitations Hearing Ability: Normal Employee Benefits Specialist Required: No Beliefs That Will Affect Care: None marital status: / Current Living Situation: Alone current occupational status: employed 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 How many Children do You have: 1 Feels Safe at Home: Yes Childhood Exposure to Second-Hand Smoke: Yes Diet: regular caffeine: Yes during the past year weight has: remained stable Dental Care, Regularly: Yes Physical Activity Frequency: Daily Seatbelt Use: always Sunscreen Use: Yes Assistive Devices: Cane and Glasses Review of Systems Constitutional: no fever Eyes: no problem reported Ear, Nose, Mouth, Throat: no problem reported Respiratory: no cough and no dyspnea Cardiovascular: no chest pain Gastrointestinal: + abdominal pain Genitourinary: no dysuria and no urinary frequency Physical Exam Constitutional: + ill appearing; not in distress Eyes: PERRL, conjunctivae normal, anicteric sclerae ENMT: external ear and nose normal, oropharynx normal NG tube in place Neck: trachea midline, no thyromegaly Respiratory: normal respiratory effort, lungs clear to auscultation Cardiovascular: RRR, no murmur, no edema Gastrointestinal (Abdomen): Inspection/Auscultation: + abdomen distended, + abdominal surgical scar and + hypoactive bowel sounds Skin: no rashes, warm and dry Genitourinary: Burton catheter in place Results & Data Vital Signs (Past 12 Hours) Vital Signs Temp Pulse Pulse Resp BP BP Pulse Ox 06/22/24 09:09 06/22/24 09:06 37.6 C H 97 H 21 94 06/22/24 08:45 37.7 C H 93 H 19 94 06/22/24 08:45 99/57 L 06/22/24 08:39 37.8 C H 92 H 20 93 06/22/24 08:30 111/56 L 06/22/24 08:18 37.9 C H 87 20 97 06/22/24 08:15 37.9 C H 85 18 96 06/22/24 08:15 109/64 06/22/24 08:15 109/64 06/22/24 08:15 109/64 06/22/24 08:10 99/59 L 06/22/24 08:10 99/59 L 06/22/24 08:09 37.9 C H 78 22 97 06/22/24 08:06 37.9 C H 79 22 97 06/22/24 08:00 95/60 L 06/22/24 08:00 95/60 L 06/22/24 07:57 37.9 C H 80 22 97 06/22/24 07:49 99/61 L 06/22/24 07:21 76 22 96 06/22/24 07:15 95/64 L 06/22/24 07:15 95/64 L 06/22/24 07:15 95/64 L 06/22/24 07:00 88/60 L 06/22/24 06:37 80 06/22/24 06:00 37.8 C H 82 22 94/67 L 97 06/22/24 06:00 06/22/24 05:55 37.8 C H 80 22 97 06/22/24 05:45 37.8 C H 80 22 104/59 L 99 06/22/24 05:30 37.8 C H 81 22 95/63 L 97 06/22/24 05:00 37.7 C H 78 22 95/60 L 98 06/22/24 05:00 37.8 C H 82 22 06/22/24 04:30 96/57 L 06/22/24 04:30 96/57 L 06/22/24 04:24 37.6 C H 80 22 98 06/22/24 04:15 90/62 L 06/22/24 04:12 37.5 C 81 22 97 06/22/24 04:00 37.8 C H 81 22 98 06/22/24 04:00 06/22/24 03:45 37.5 C 83 22 97 06/22/24 03:45 87/58 L 06/22/24 03:44 79 22 97 06/22/24 03:36 37.4 C 85 22 97 06/22/24 03:30 97/61 L 06/22/24 03:30 37.6 C H 81 22 97/61 L 98 06/22/24 03:00 37.7 C H 06/22/24 02:00 36.6 C 82 22 86/56 L 97 06/22/24 02:00 37.7 C H 81 22 98 06/22/24 01:30 36.2 C L 77 22 89/62 L 99 06/22/24 01:00 36.0 C L 80 22 93/60 L 97 06/22/24 01:00 37.7 C H 81 22 98 06/22/24 00:45 36.0 C L 80 22 86/57 L 97 06/22/24 00:20 35.9 C L 81 22 106/64 98 06/22/24 00:00 85 22 96/63 L 93 06/21/24 23:50 83 22 89/61 L 98 06/21/24 23:45 83 22 102/66 98 06/21/24 23:40 83 06/21/24 23:40 35.8 C L 83 22 104/64 98 06/21/24 23:35 35.8 C L 97 H 22 95/65 L 97 06/21/24 23:28 35.8 C L 78 22 83/62 L 99 06/21/24 23:20 06/21/24 23:18 35.8 C L 80 24 101/69 98 06/21/24 23:05 84 22 96 O2 Del Method O2 Flow Rate FiO2 06/22/24 09:09 Nasal Cannula 2 06/22/24 09:06 06/22/24 08:45 06/22/24 08:45 06/22/24 08:39 06/22/24 08:30 06/22/24 08:18 06/22/24 08:15 06/22/24 08:15 06/22/24 08:15 06/22/24 08:15 06/22/24 08:10 06/22/24 08:10 06/22/24 08:09 06/22/24 08:06 06/22/24 08:00 06/22/24 08:00 06/22/24 07:57 06/22/24 07:49 06/22/24 07:21 35 06/22/24 07:15 06/22/24 07:15 06/22/24 07:15 06/22/24 07:00 06/22/24 06:37 06/22/24 06:00 Mechanical Vent 40 06/22/24 06:00 40 06/22/24 05:55 Mechanical Vent 40 06/22/24 05:45 Mechanical Vent 40 06/22/24 05:30 Mechanical Vent 40 06/22/24 05:00 Mechanical Vent 40 06/22/24 05:00 Mechanical Vent 06/22/24 04:30 06/22/24 04:30 06/22/24 04:24 06/22/24 04:15 06/22/24 04:12 06/22/24 04:00 Mechanical Vent 40 06/22/24 04:00 40 06/22/24 03:45 06/22/24 03:45 06/22/24 03:44 40 06/22/24 03:36 06/22/24 03:30 06/22/24 03:30 Mechanical Vent 40 06/22/24 03:00 Mechanical Vent 40 06/22/24 02:00 Mechanical Vent 40 06/22/24 02:00 Mechanical Vent 40 06/22/24 01:30 Mechanical Vent 40 06/22/24 01:00 Mechanical Vent 40 06/22/24 01:00 Mechanical Vent 40 06/22/24 00:45 Mechanical Vent 40 06/22/24 00:20 Mechanical Vent 40 06/22/24 00:00 Mechanical Vent 40 06/21/24 23:50 Mechanical Vent 40 06/21/24 23:45 Mechanical Vent 40 06/21/24 23:40 06/21/24 23:40 Mechanical Vent 40 06/21/24 23:35 Mechanical Vent 50 06/21/24 23:28 Mechanical Vent 50 06/21/24 23:20 Mechanical Vent 40 06/21/24 23:18 Mechanical Vent 50 06/21/24 23:05 40 Laboratory Results Laboratory Results WBC 2.73 K/ul (4.8-10.8) L 06/22/24 05:44 RBC 3.23 M/uL (4.20-5.40) L 06/22/24 05:44 Hgb 9.5 g/dl (12.0-16.0) L 06/22/24 05:44 POC Hgb 14.3 g/dl (12.0-16.0) 06/22/24 05:26 Hct 29.9 % (37.0-47.0) L 06/22/24 05:44 POC Hct 42 % (37-47) 06/22/24 05:26 MCV 92.6 fL (80.0-100.0) 06/22/24 05:44 MCH 29.4 pg (25.0-34.0) 06/22/24 05:44 MCHC 31.8 g/dL (32.0-36.0) L 06/22/24 05:44 RDW Std Deviation 45.5 fL (36.4-46.3) 06/22/24 05:44 RDW Coeff of Rafael 13.4 % (11.5-14.5) 06/22/24 05:44 Plt Count 339 K/uL (130-400) 06/22/24 05:44 MPV 9.5 fL (9.4-12.4) 06/22/24 05:44 Neutrophils % (Manual) 67 % 06/22/24 05:44 Lymphocytes % (Manual) 22 % 06/22/24 05:44 Monocytes % (Manual) 2 % 06/22/24 05:44 Metamyelocytes % (Man) 9 % 06/22/24 05:44 Myelocytes % (Man) 2 % 06/21/24 18:50 Neutrophils # (Manual) 1.83 K/uL (1.40-6.50) 06/22/24 05:44 Total Absolute Neuts 1.83 K/uL (1.4-6.5) 06/22/24 05:44 Lymphocytes # (Manual) 0.60 K/uL (1.2-3.4) L 06/22/24 05:44 Total Abs Lymphocytes 0.60 K/uL (1.2-3.4) L 06/22/24 05:44 Monocytes # (Manual) 0.05 K/uL (0.11-0.59) L 06/22/24 05:44 Metamyelocytes # (Man) 0.25 K/uL (0-0) H 06/22/24 05:44 Myelocytes # (Manual) 0.15 K/uL (0-0) H 06/21/24 18:50 Toxic Granulation 1+ 06/21/24 18:50 Echinocytes 2+ 06/22/24 05:44 Acanthocytes (Spur) 2+ 06/21/24 18:50 PT 12.8 Seconds (9.0-12.0) H 06/21/24 18:50 INR 1.2 (0.9-1.1) H 06/21/24 18:50 Sample Site L Radial 06/22/24 03:40 POC pH 7.29 (7.35-7.45) L 06/22/24 03:40 POC pCO2 34 mmHg (35-46) L 06/22/24 03:40 POC pO2 103 mmHg (80-95) H 06/22/24 03:40 POC HCO3 16 karlo/L (19-24) L 06/22/24 03:40 POC Total CO2 17 mmol/L (24-31) L 06/22/24 03:40 POC Base Excess -10.0 karlo/L (-9-1.8) L 06/22/24 03:40 ABG pH (Temp Correct) 7.288 (7.35-7.45) L 06/22/24 03:40 ABG pCO2 (Temp Corrct 34 mmHg (35-46) L 06/22/24 03:40 POC ABG pO2 at Pt Temp 103 06/22/24 03:40 POC ABG O2 Sat 97.0 % (90-95) H 06/22/24 03:40 Arthur Test Pass 06/22/24 03:40 O2 Delivery Device Ventilator 06/22/24 03:40 POC O2 Rate 22 06/22/24 03:40 POC FiO2 40 % 06/22/24 03:40 Tidal Volume 350 06/22/24 03:40 PEEP 5 06/22/24 03:40 POC Sodium 136 mmol/L (135-144) 06/22/24 05:26 Sodium 134 mmol/L (136-145) L 06/22/24 09:23 POC Potassium 4.7 mmol/L (3.3-5.0) 06/22/24 05:26 Potassium 5.0 mmol/L (3.5-5.1) 06/22/24 10:36 POC Chloride 106 mmol/L (101-112) 06/22/24 05:26 Chloride 108 mmol/L (98-107) H 06/22/24 09:23 Carbon Dioxide 14 mmol/L (21-32) L 06/22/24 09:23 POC Total CO2 19 mmol/L (24-31) L 06/22/24 05:26 Anion Gap 12 (3-11) H 06/22/24 09:23 POC Anion Gap 17.0 mmol/L (16-25) 06/22/24 05:26 POC BUN 17 mg/dl (7-18) 06/22/24 05:26 BUN 56 mg/dl (6-23) H 06/22/24 09:23 Creatinine 3.66 mg/dl (0.6-1.2) H D 06/22/24 09:23 POC Creatinine 1.1 mg/dl (0.6-1.3) 06/22/24 05:26 Est Cr Clr Drug Dosing 12.7 ml/min 06/22/24 09:23 Est GFR ( Amer) 13.2 ml/min 06/22/24 09:23 Est GFR (Non-Af Amer) 11.4 ml/min 06/22/24 09:23 BUN/Creatinine Ratio 15.3 (10-20) 06/22/24 09:23 Glucose 166 mg/dl (70-99(Fasting)) H 06/22/24 09:23 POC Glucose 75 mg/dl (70-99) 06/22/24 05:58 POC Glucose (other) 242 mg/dl (70-99) H 06/22/24 05:26 Lactate 3.4 mmol/L (0.4-2.0) H* 06/22/24 08:19 Calcium 9.9 mg/dl (8.6-10.3) 06/22/24 09:23 POC Ioniz Calcium Beverly 1.15 mmol/l (1.12-1.32) 06/22/24 05:26 Phosphorus 5.9 mg/dl (2.5-4.9) H 06/22/24 05:44 Magnesium 1.8 mg/dl (1.7-2.4) 06/22/24 05:44 Total Bilirubin 0.3 mg/dl (0.2-1.0) 06/22/24 09:23 Direct Bilirubin 0.0 mg/dl (0-0.2) 06/22/24 09:23 AST 139 U/L (13-39) H 06/22/24 09:23 ALT 139 U/L (7-52) H 06/22/24 09:23 Alkaline Phosphatase 51 U/L (34-104) 06/22/24 09:23 Troponin I High Sens 11.7 pg/ml (0-14) 06/21/24 18:50 Total Protein 4.4 gm/dl (6.0-8.3) L 06/22/24 09:23 Albumin 2.0 gm/dl (3.4-5.0) L 06/22/24 09:23 Globulin 2.6 gm/dl (2.5-4.0) 06/22/24 00:15 Albumin/Globulin Ratio 0.9 (0.9-2) 06/22/24 00:15 Lipase 178 U/L (11-82) H 06/21/24 18:50 Procalcitonin 23.10 ng/ml (0-0.5) H 06/22/24 00:15 Random Cortisol > 60.00 mcg/dl 06/22/24 00:15 Urine Color Yellow 06/22/24 05:45 Urine Appearance Turbid (Clear) A 06/22/24 05:45 Urine pH 5.0 (4.5-7.5) 06/22/24 05:45 Ur Specific Randolph 1.023 (1.000-1.030) 06/22/24 05:45 Urine Protein 1+ (Negative) H 06/22/24 05:45 Urine Glucose (UA) Negative (Negative) 06/22/24 05:45 Urine Ketones Trace (Negative) H 06/22/24 05:45 Urine Blood Trace (Negative) H 06/22/24 05:45 Urine Nitrite Negative (Negative) 06/22/24 05:45 Urine Bilirubin Negative (Negative) 06/22/24 05:45 Urine Urobilinogen Negative (Negative) 06/22/24 05:45 Ur Leukocyte Esterase Trace (Negative) H 06/22/24 05:45 Urine WBC (Auto) 0-5 /hpf (0-5) 06/22/24 05:45 Urine RBC (Auto) 0-2 /hpf (0-2) 06/22/24 05:45 U Hyaline Cast (Auto) 0-2 /lpf (0-2) 06/22/24 05:45 U Epithel Cells (Auto) 3-5 /hpf (0-2) H 06/22/24 05:45 Urine Bacteria (Auto) None Seen (None Seen) 06/22/24 05:45 Blood Type AB Positive 06/21/24 19:06 Antibody Screen NEGATIVE 06/21/24 19:06 Impressions Abdomen/Pelvis CT 06/21/24 19:07 CR Exam(s): CT ABDOMEN + PELVIS Without Contrast EXAM: CT Abdomen and Pelvis Without Intravenous Contrast CLINICAL HISTORY: Reason for exam: abd pain, recent colonoscopy. TECHNIQUE: Axial computed tomography images of the abdomen and pelvis without intravenous contrast. CTDI is 26 mGy and DLP is 1283 mGy-cm. Automated exposure control was utilized for the study. A dose lowering technique was utilized adhering to the principles of ALARA. COMPARISON: No relevant prior studies available. FINDINGS: Lung bases: Bibasilar subsegmental atelectasis. Pulmonary nodules in the right middle lobe measuring up to 8 mm (series 2, image 4). Pleural space: Small left pleural effusion. ABDOMEN: Liver: Unremarkable. Gallbladder and bile ducts: Unremarkable. No calcified stones. No ductal dilation. Pancreas: Unremarkable. No ductal dilation. Spleen: Unremarkable. No splenomegaly. Adrenals: Benign left adrenal adenoma measuring 23 mm; no follow-up indicated. Right adrenal gland is unremarkable. Kidneys and ureters: Unremarkable. No obstructing stones. No hydronephrosis. Stomach and bowel: Unremarkable. No mucosal thickening. No bowel obstruction. PELVIS: Appendix: Appendix not identified. Bladder: Unremarkable. No stones. Reproductive: Unremarkable as visualized. ABDOMEN and PELVIS: Intraperitoneal space: Mild ascites with scattered pneumoperitoneum. Bones/joints: Osteopenia. Degenerative changes in the spine. Right total hip arthroplasty. No acute fracture location. No dislocation. Soft tissues: Unremarkable. Vasculature: Atherosclerosis without aortic aneurysm. Lymph nodes: Unremarkable. No enlarged lymph nodes. IMPRESSION: 1. Mild ascites with scattered pneumoperitoneum. Appearance is concerning for bowel preparation. Site of perforation is not clearly delineated, but presumably is somewhere within the colon given recent colonoscopy. 2. Pulmonary nodules in the right middle lobe measuring up to 8 mm (series 2, image 4). Per Fleischner Society guidelines, dedicated CT chest recommended. Communications: Call Doctor Pneumoperitoneum, new or unexpected Electronically signed by: Yovany Padilla M.D. 06/21/24 19:38 PM Chest X-Ray 06/22/24 07:00 XR chest 1V portable HISTORY: Resp failure COMPARISON: Chest 06/21/2024. FINDINGS: Endotracheal tube terminates 4.1 cm and the alex. Nasogastric tube terminates below the diaphragm. The tip is not included on this study. No pneumothorax. Trace bilateral pleural effusions and bibasilar linear densities persist. No evidence for pulmonary edema. The heart remains enlarged. A surgical drain is seen within the upper abdomen. IMPRESSION: 1. Satisfactory support line placement. 2. Trace bilateral pleural effusions and bibasilar linear densities persist. ACT 112: Negative or not required by law. Electronically signed by: Memo Lozada M.D. 06/22/2024 8:32 AM PG Care Time/CCT Total # of Minutes Spent Total Time Spent with Patient: Total time spent is greater than 50% in coordination of care (as documented) at patient's floor/unit and/or counseling patient: Coding Level of Care Code 90634 IN/OBS CONSULT LVL 5,80M Diagnoses SONI (acute kidney injury) N17.9 Chronic kidney disease, stage 3 N18.30 Hyperkalemia E87.5 Free intraperitoneal air K66.8 Septic shock A41.9; R65.21
--- NOTE | 2024-06-22 11:40 | Procedure Note ---
Procedure Note Date of Service June 22, 2024 INTERNAL JUGULAR right hemodialysis catheter: Procedure: Right double-lumen hemodialysis catheter Indication: Acute hemodialysis Anesthesia: 8 mL lidocaine 1% Consent was signed and placed on the chart prior to procedure. Indication, risks, and benefits were explained at length. A time-out was completed verifying correct patient, procedure, site, positioning, and implants(s) or special equipment if applicable. Patients right neck was cleansed and draped in the typical sterile fashion using Chloraprep. The Internal Jugular Vein and Carotid Artery were identified using ultrasound. The superficial tissue was anesthetized using 8 mL of 1% lidocaine without epinephrine under direct visualization with the ultrasound. After adequate anesthetization was achieved, the Internal Jugular vein was cannulated under direct ultrasound guidance using an introducer needle on a syringe. Good venous blood return was maintained prior to removal of syringe from introducer needle. Using Seldinger Technique, a guide wire was advanced through the introducer needle without resistance. The introducer needle was removed and ultrasound images were obtained of the guide wire within the Internal Jugular Vein and saved to the patients medical record. A small incision was made in penetrating fashion at the guide wire insertion site utilizing an 11 blade scalpel. The dilator was advanced to the vessel without resistance. The dilator was exchanged for the double lumen catheter which was advanced into the vessel without resistance. The guide wire was removed intact from the catheter without issue. Claves were placed on each catheter tip with confirmation of good blood flow from each lumen. Each port was easily flushed with sterile saline. The catheter was placed at 15 cm and sutured in place. BioPatch was applied to the catheter and a sterile Tegaderm dressing was applied over the catheter with careful attention to sterility. Patient tolerated procedure well. No immediate complications were met. Post procedure x-ray was completed, placement was appropriate and no pneumothorax was noted. Images obtained are saved for permanent record [facility] Procedure Codes (Charges) Tubes, Drains, and Vasc Access Procedure 1: Tubes, Drains, and Vasc Access: [id number] Place catheter in vein superior or inferior vena cava Procedure 2: Tubes, Drains, and Vasc Access: [id number] Ultrasound Guidance For Vascular Coding CPT Codes Tubes, Drains, and Vasc Access - Tubes, Drains, and Vasc Access: [id number] Place catheter in vein superior or inferior vena cava ([id number]) Tubes, Drains, and Vasc Access - Tubes, Drains, and Vasc Access: [id number] Ultrasound Guidance For Vascular ([id number]) Additional Codes Date of Service ([facility].[email or web address])
--- NOTE | 2024-06-22 12:07 | XRay Report ---
XR chest 1V portable HISTORY: s/p RIGHT IJ HD cath COMPARISON: Chest 06/22/2024. FINDINGS: Endotracheal tube is been removed. Nasogastric tube terminates below the diaphragm. The tip is not included on this study. A right jugular central venous catheter terminates in the SVC. Bibasi lar linear densities and small bilateral pleural effusions persists. There is mild central pulmonary vascular congestion without overt edema. The heart remains mildly enlarged. No pneumothorax. Upper ab dominal surgical drain is partially visualized. IMPRESSION: 1. Satisfactory support line placement. 2. No pneumothorax. 3. Small bilateral pleural effusions and patchy bibasilar densities persist. 3. Cardiomegaly and mild pulmonary vascular congestion. ACT 112: Negative or not required by law. Electronically signed by: Memo Lozada M.D. 06/22/2024 12:06 PM
[2024-06-22] MEDS: MEROPENEM 500 MG in SYRINGE 0 ML IV SCH (12:08)
--- NOTE | 2024-06-22 13:19 | Surgery Progress Note ---
Date of Service June 22, 2024 Assessment & Plan (1) Perforated gastric ulcer: Plan: POD #1 laparotomy with repair of perforated gastric ulcer, likely secondary to chronic NSAID use for back pain. Continue NG tube, continue drains Continue PPI drip IS, out of bed to chair, ambulate Continue antibiotics Plan is to keep NG tube in place for 72 hours, then perform a CT scan with oral contrast through the NG tube. If there is no evidence of leak then the NG tube can be removed and she can be advanced to clear liquids. She will need to continue on a PPI and avoid NSAIDs as an outpatient Appreciate ICU care of this patient Surgery will follow, call with questions or concerns (2) Septic shock: (3) SONI (acute kidney injury): (4) Status post exploratory laparotomy: Admission and Anticipated Discharge Date Admission Date: June 21, 2024 Subjective POD #1 laparotomy with Uriel patch of perforated gastric ulcer. Extubated this morning. Sore in abdomen, but feels much better than prior to surgery. Of note, she states that she has been taking diclofenac for back pain for years. Physical Exam Constitutional: WD/WN, vitals as above Respiratory: normal respiratory effort, lungs clear to auscultation Cardiovascular: RRR, no murmur, no edema Gastrointestinal (Abdomen): Inspection/Auscultation: + abdominal surgical incision (Dressing in place, C/D/I) and + abdominal surgical drain present (Gastric drain SS output, pelvic drain SS output) Percussion/Palpation: + abdomen tender (Appropriately tender to palpation) Results & Data Vital Signs (Past 12 Hours) Vital Signs Temp Pulse Pulse Resp BP Pulse Ox O2 Del Method 06/22/24 09:09 Nasal Cannula 06/22/24 09:06 37.6 C H 97 H 21 94 06/22/24 08:45 37.7 C H 93 H 19 94 06/22/24 08:45 99/57 L 06/22/24 08:39 37.8 C H 92 H 20 93 06/22/24 08:30 111/56 L 06/22/24 08:18 37.9 C H 87 20 97 06/22/24 08:15 37.9 C H 85 18 96 06/22/24 08:15 109/64 06/22/24 08:15 109/64 06/22/24 08:15 109/64 06/22/24 08:10 99/59 L 06/22/24 08:10 99/59 L 06/22/24 08:09 37.9 C H 78 22 97 06/22/24 08:06 37.9 C H 79 22 97 06/22/24 08:00 95/60 L 06/22/24 08:00 95/60 L 06/22/24 07:57 37.9 C H 80 22 97 06/22/24 07:49 99/61 L 06/22/24 07:21 76 22 96 06/22/24 07:15 95/64 L 06/22/24 07:15 95/64 L 06/22/24 07:15 95/64 L 06/22/24 07:00 88/60 L 06/22/24 06:37 80 06/22/24 06:00 37.8 C H 82 22 94/67 L 97 Mechanical Vent 06/22/24 06:00 06/22/24 05:55 37.8 C H 80 22 97 Mechanical Vent 06/22/24 05:45 37.8 C H 80 22 104/59 L 99 Mechanical Vent 06/22/24 05:30 37.8 C H 81 22 95/63 L 97 Mechanical Vent 06/22/24 05:00 37.7 C H 78 22 95/60 L 98 Mechanical Vent 06/22/24 05:00 37.8 C H 82 22 Mechanical Vent 06/22/24 04:30 96/57 L 06/22/24 04:30 96/57 L 06/22/24 04:24 37.6 C H 80 22 98 06/22/24 04:15 90/62 L 06/22/24 04:12 37.5 C 81 22 97 06/22/24 04:00 37.8 C H 81 22 98 Mechanical Vent 06/22/24 04:00 06/22/24 03:45 37.5 C 83 22 97 06/22/24 03:45 87/58 L 06/22/24 03:44 79 22 97 06/22/24 03:36 37.4 C 85 22 97 06/22/24 03:30 97/61 L 06/22/24 03:30 37.6 C H 81 22 97/61 L 98 Mechanical Vent 06/22/24 03:00 37.7 C H Mechanical Vent 06/22/24 02:00 36.6 C 82 22 86/56 L 97 Mechanical Vent 06/22/24 02:00 37.7 C H 81 22 98 Mechanical Vent 06/22/24 01:30 36.2 C L 77 22 89/62 L 99 Mechanical Vent O2 Flow Rate FiO2 06/22/24 09:09 2 06/22/24 09:06 06/22/24 08:45 06/22/24 08:45 06/22/24 08:39 06/22/24 08:30 06/22/24 08:18 06/22/24 08:15 06/22/24 08:15 06/22/24 08:15 06/22/24 08:15 06/22/24 08:10 06/22/24 08:10 06/22/24 08:09 06/22/24 08:06 06/22/24 08:00 06/22/24 08:00 06/22/24 07:57 06/22/24 07:49 06/22/24 07:21 35 06/22/24 07:15 06/22/24 07:15 06/22/24 07:15 06/22/24 07:00 06/22/24 06:37 06/22/24 06:00 40 06/22/24 06:00 40 06/22/24 05:55 40 06/22/24 05:45 40 06/22/24 05:30 40 06/22/24 05:00 40 06/22/24 05:00 06/22/24 04:30 06/22/24 04:30 06/22/24 04:24 06/22/24 04:15 06/22/24 04:12 06/22/24 04:00 40 06/22/24 04:00 40 06/22/24 03:45 06/22/24 03:45 06/22/24 03:44 40 06/22/24 03:36 06/22/24 03:30 06/22/24 03:30 40 06/22/24 03:00 40 06/22/24 02:00 40 06/22/24 02:00 40 06/22/24 01:30 40 Laboratory Results Laboratory Results - last 24 hr 06/21/24 06/21/24 06/21/24 18:50 18:55 19:06 WBC 7.54 RBC 3.45 L Hgb 10.1 L POC Hgb 10.5 L Hct 33.4 L POC Hct 31 L MCV 96.8 MCH 29.3 MCHC 30.2 L RDW Std Deviation 48.3 H RDW Coeff of Rafael 13.7 Plt Count 425 H MPV 9.0 L Neutrophils % (Manual) 66 Lymphocytes % (Manual) 23 Monocytes % (Manual) 1 Metamyelocytes % (Man) 8 Myelocytes % (Man) 2 Neutrophils # (Manual) 4.98 Total Absolute Neuts 4.98 Lymphocytes # (Manual) 1.73 Total Abs Lymphocytes 1.73 Monocytes # (Manual) 0.08 L Metamyelocytes # (Man) 0.60 H Myelocytes # (Manual) 0.15 H Toxic Granulation 1+ Echinocytes 1+ Acanthocytes (Spur) 2+ PT 12.8 H INR 1.2 H Sample Site POC pH POC pCO2 POC pO2 POC HCO3 POC Base Excess ABG pH (Temp Correct) ABG pCO2 (Temp Corrct POC ABG pO2 at Pt Temp POC ABG O2 Sat Arthur Test O2 Delivery Device POC O2 Rate POC FiO2 Tidal Volume PEEP POC Sodium 130 L Sodium 131 L POC Potassium 4.7 Potassium 4.7 POC Chloride 106 Chloride 101 Carbon Dioxide 12 L POC Total CO2 11 L Anion Gap 18 H POC Anion Gap 18.0 POC BUN 48 H BUN 53 H Creatinine 3.98 H POC Creatinine 4.0 H Est Cr Clr Drug Dosing 11.6 Est GFR ( Amer) 11.9 Est GFR (Non-Af Amer) 10.3 BUN/Creatinine Ratio 13.3 Glucose 117 H POC Glucose POC Glucose (other) 111 H Lactate Calcium 15.7 H* POC Ioniz Calcium Beverly 2.00 H* Phosphorus Magnesium Total Bilirubin 0.3 Direct Bilirubin AST 30 ALT 23 Alkaline Phosphatase 65 Troponin I High Sens 11.7 Total Protein 5.8 L Albumin 2.8 L Globulin 3.0 Albumin/Globulin Ratio 0.9 Lipase 178 H Procalcitonin Random Cortisol Urine Color Urine Appearance Urine pH Ur Specific Saxon Urine Protein Urine Glucose (UA) Urine Ketones Urine Blood Urine Nitrite Urine Bilirubin Urine Urobilinogen Ur Leukocyte Esterase Urine WBC (Auto) Urine RBC (Auto) U Hyaline Cast (Auto) U Epithel Cells (Auto) Urine Bacteria (Auto) Hep Bs Antigen Hep Bs Antibody Hep Bs Antibody, Quant Hep B Core IgM Ab Blood Type AB Positive Antibody Screen NEGATIVE 06/21/24 06/22/24 06/22/24 23:47 00:15 02:15 WBC 2.90 L RBC 3.27 L Hgb 9.6 L POC Hgb 8.8 L Hct 31.0 L POC Hct 26 L MCV 94.8 MCH 29.4 MCHC 31.0 L RDW Std Deviation 46.3 RDW Coeff of Rafael 13.4 Plt Count 295 MPV 9.0 L Neutrophils % (Manual) Lymphocytes % (Manual) Monocytes % (Manual) Metamyelocytes % (Man) Myelocytes % (Man) Neutrophils # (Manual) Total Absolute Neuts Lymphocytes # (Manual) Total Abs Lymphocytes Monocytes # (Manual) Metamyelocytes # (Man) Myelocytes # (Manual) Toxic Granulation Echinocytes Acanthocytes (Spur) PT INR Sample Site L Radial POC pH 7.22 L POC pCO2 34 L POC pO2 81 POC HCO3 14 L POC Base Excess -14.0 L ABG pH (Temp Correct) 7.238 L ABG pCO2 (Temp Corrct 32 L POC ABG pO2 at Pt Temp 76 POC ABG O2 Sat 94.0 Arthur Test Pass O2 Delivery Device Ventilator POC O2 Rate 22 POC FiO2 40 Tidal Volume 350 PEEP 5 POC Sodium 133 L Sodium 133 L POC Potassium 4.8 Potassium 5.0 POC Chloride Chloride 108 H Carbon Dioxide 16 L POC Total CO2 15 L Anion Gap 9 POC Anion Gap POC BUN BUN 48 H Creatinine 3.02 H D POC Creatinine Est Cr Clr Drug Dosing 15.4 Est GFR ( Amer) 16.7 Est GFR (Non-Af Amer) 14.4 BUN/Creatinine Ratio 15.9 Glucose 78 POC Glucose POC Glucose (other) Lactate 4.0 H* 3.4 H* Calcium 11.8 H D POC Ioniz Calcium Beverly Phosphorus Magnesium 1.8 Total Bilirubin 0.3 Direct Bilirubin AST 145 H ALT 119 H Alkaline Phosphatase 56 Troponin I High Sens Total Protein 5.0 L Albumin 2.4 L Globulin 2.6 Albumin/Globulin Ratio 0.9 Lipase Procalcitonin 23.10 H Random Cortisol > 60.00 Urine Color Urine Appearance Urine pH Ur Specific Saxon Urine Protein Urine Glucose (UA) Urine Ketones Urine Blood Urine Nitrite Urine Bilirubin Urine Urobilinogen Ur Leukocyte Esterase Urine WBC (Auto) Urine RBC (Auto) U Hyaline Cast (Auto) U Epithel Cells (Auto) Urine Bacteria (Auto) Hep Bs Antigen Hep Bs Antibody Hep Bs Antibody, Quant Hep B Core IgM Ab Blood Type Antibody Screen 06/22/24 06/22/24 06/22/24 03:40 05:26 05:44 WBC 2.73 L RBC 3.23 L Hgb 9.5 L POC Hgb 9.2 L 14.3 Hct 29.9 L POC Hct 27 L 42 MCV 92.6 MCH 29.4 MCHC 31.8 L RDW Std Deviation 45.5 RDW Coeff of Rafael 13.4 Plt Count 339 MPV 9.5 Neutrophils % (Manual) 67 Lymphocytes % (Manual) 22 Monocytes % (Manual) 2 Metamyelocytes % (Man) 9 Myelocytes % (Man) Neutrophils # (Manual) 1.83 Total Absolute Neuts 1.83 Lymphocytes # (Manual) 0.60 L Total Abs Lymphocytes 0.60 L Monocytes # (Manual) 0.05 L Metamyelocytes # (Man) 0.25 H Myelocytes # (Manual) Toxic Granulation Echinocytes 2+ Acanthocytes (Spur) PT INR Sample Site L Radial POC pH 7.29 L POC pCO2 34 L POC pO2 103 H POC HCO3 16 L POC Base Excess -10.0 L ABG pH (Temp Correct) 7.288 L ABG pCO2 (Temp Corrct 34 L POC ABG pO2 at Pt Temp 103 POC ABG O2 Sat 97.0 H Arthur Test Pass O2 Delivery Device Ventilator POC O2 Rate 22 POC FiO2 40 Tidal Volume 350 PEEP 5 POC Sodium 133 L 136 Sodium 130 L POC Potassium 5.6 H 4.7 Potassium 5.9 H POC Chloride 106 Chloride 104 Carbon Dioxide 17 L POC Total CO2 17 L 19 L Anion Gap 9 POC Anion Gap 17.0 POC BUN 17 BUN 50 H Creatinine 3.31 H POC Creatinine 1.1 Est Cr Clr Drug Dosing 14.0 Est GFR ( Amer) 14.9 Est GFR (Non-Af Amer) 12.9 BUN/Creatinine Ratio 15.1 Glucose 180 H POC Glucose POC Glucose (other) 242 H Lactate Calcium 10.4 H POC Ioniz Calcium Beverly 1.15 Phosphorus 5.9 H Magnesium 1.8 Total Bilirubin Direct Bilirubin AST ALT Alkaline Phosphatase Troponin I High Sens Total Protein Albumin Globulin Albumin/Globulin Ratio Lipase Procalcitonin Random Cortisol Urine Color Urine Appearance Urine pH Ur Specific Saxon Urine Protein Urine Glucose (UA) Urine Ketones Urine Blood Urine Nitrite Urine Bilirubin Urine Urobilinogen Ur Leukocyte Esterase Urine WBC (Auto) Urine RBC (Auto) U Hyaline Cast (Auto) U Epithel Cells (Auto) Urine Bacteria (Auto) Hep Bs Antigen Hep Bs Antibody Hep Bs Antibody, Quant Hep B Core IgM Ab Blood Type Antibody Screen 06/22/24 06/22/24 06/22/24 05:45 05:58 08:19 WBC RBC Hgb POC Hgb Hct POC Hct MCV MCH MCHC RDW Std Deviation RDW Coeff of Rafael Plt Count MPV Neutrophils % (Manual) Lymphocytes % (Manual) Monocytes % (Manual) Metamyelocytes % (Man) Myelocytes % (Man) Neutrophils # (Manual) Total Absolute Neuts Lymphocytes # (Manual) Total Abs Lymphocytes Monocytes # (Manual) Metamyelocytes # (Man) Myelocytes # (Manual) Toxic Granulation Echinocytes Acanthocytes (Spur) PT INR Sample Site POC pH POC pCO2 POC pO2 POC HCO3 POC Base Excess ABG pH (Temp Correct) ABG pCO2 (Temp Corrct POC ABG pO2 at Pt Temp POC ABG O2 Sat Arthur Test O2 Delivery Device POC O2 Rate POC FiO2 Tidal Volume PEEP POC Sodium Sodium POC Potassium Potassium POC Chloride Chloride Carbon Dioxide POC Total CO2 Anion Gap POC Anion Gap POC BUN BUN Creatinine POC Creatinine Est Cr Clr Drug Dosing Est GFR ( Amer) Est GFR (Non-Af Amer) BUN/Creatinine Ratio Glucose POC Glucose 75 POC Glucose (other) Lactate 3.4 H* Calcium POC Ioniz Calcium Beverly Phosphorus Magnesium Total Bilirubin Direct Bilirubin AST ALT Alkaline Phosphatase Troponin I High Sens Total Protein Albumin Globulin Albumin/Globulin Ratio Lipase Procalcitonin Random Cortisol Urine Color Yellow Urine Appearance Turbid A Urine pH 5.0 Ur Specific Saxon 1.023 Urine Protein 1+ H Urine Glucose (UA) Negative Urine Ketones Trace H Urine Blood Trace H Urine Nitrite Negative Urine Bilirubin Negative Urine Urobilinogen Negative Ur Leukocyte Esterase Trace H Urine WBC (Auto) 0-5 Urine RBC (Auto) 0-2 U Hyaline Cast (Auto) 0-2 U Epithel Cells (Auto) 3-5 H Urine Bacteria (Auto) None Seen Hep Bs Antigen Hep Bs Antibody Hep Bs Antibody, Quant Hep B Core IgM Ab Blood Type Antibody Screen 06/22/24 06/22/24 06/22/24 09:23 10:36 12:03 WBC RBC Hgb POC Hgb Hct POC Hct MCV MCH MCHC RDW Std Deviation RDW Coeff of Rafael Plt Count MPV Neutrophils % (Manual) Lymphocytes % (Manual) Monocytes % (Manual) Metamyelocytes % (Man) Myelocytes % (Man) Neutrophils # (Manual) Total Absolute Neuts Lymphocytes # (Manual) Total Abs Lymphocytes Monocytes # (Manual) Metamyelocytes # (Man) Myelocytes # (Manual) Toxic Granulation Echinocytes Acanthocytes (Spur) PT INR Sample Site POC pH POC pCO2 POC pO2 POC HCO3 POC Base Excess ABG pH (Temp Correct) ABG pCO2 (Temp Corrct POC ABG pO2 at Pt Temp POC ABG O2 Sat Arthur Test O2 Delivery Device POC O2 Rate POC FiO2 Tidal Volume PEEP POC Sodium Sodium 134 L POC Potassium Potassium TNP 5.0 POC Chloride Chloride 108 H Carbon Dioxide 14 L POC Total CO2 Anion Gap 12 H POC Anion Gap POC BUN BUN 56 H Creatinine 3.66 H D POC Creatinine Est Cr Clr Drug Dosing 12.7 Est GFR ( Amer) 13.2 Est GFR (Non-Af Amer) 11.4 BUN/Creatinine Ratio 15.3 Glucose 166 H POC Glucose 127 H POC Glucose (other) Lactate Calcium 9.9 POC Ioniz Calcium Beverly Phosphorus Magnesium Total Bilirubin 0.3 Direct Bilirubin 0.0 AST 139 H ALT 139 H Alkaline Phosphatase 51 Troponin I High Sens Total Protein 4.4 L Albumin 2.0 L Globulin Albumin/Globulin Ratio Lipase Procalcitonin Random Cortisol Urine Color Urine Appearance Urine pH Ur Specific Saxon Urine Protein Urine Glucose (UA) Urine Ketones Urine Blood Urine Nitrite Urine Bilirubin Urine Urobilinogen Ur Leukocyte Esterase Urine WBC (Auto) Urine RBC (Auto) U Hyaline Cast (Auto) U Epithel Cells (Auto) Urine Bacteria (Auto) Hep Bs Antigen Hep Bs Antibody Hep Bs Antibody, Quant Hep B Core IgM Ab Blood Type Antibody Screen 06/22/24 13:01 WBC RBC Hgb POC Hgb Hct POC Hct MCV MCH MCHC RDW Std Deviation RDW Coeff of Rafael Plt Count MPV Neutrophils % (Manual) Lymphocytes % (Manual) Monocytes % (Manual) Metamyelocytes % (Man) Myelocytes % (Man) Neutrophils # (Manual) Total Absolute Neuts Lymphocytes # (Manual) Total Abs Lymphocytes Monocytes # (Manual) Metamyelocytes # (Man) Myelocytes # (Manual) Toxic Granulation Echinocytes Acanthocytes (Spur) PT INR Sample Site POC pH POC pCO2 POC pO2 POC HCO3 POC Base Excess ABG pH (Temp Correct) ABG pCO2 (Temp Corrct POC ABG pO2 at Pt Temp POC ABG O2 Sat Arthur Test O2 Delivery Device POC O2 Rate POC FiO2 Tidal Volume PEEP POC Sodium Sodium Pending POC Potassium Potassium Pending POC Chloride Chloride Pending Carbon Dioxide Pending POC Total CO2 Anion Gap Pending POC Anion Gap POC BUN BUN Pending Creatinine Pending POC Creatinine Est Cr Clr Drug Dosing Pending Est GFR ( Amer) Pending Est GFR (Non-Af Amer) Pending BUN/Creatinine Ratio Pending Glucose Pending POC Glucose POC Glucose (other) Lactate Calcium Pending POC Ioniz Calcium Beverly Phosphorus Magnesium Total Bilirubin Direct Bilirubin AST ALT Alkaline Phosphatase Troponin I High Sens Total Protein Albumin Globulin Albumin/Globulin Ratio Lipase Procalcitonin Random Cortisol Urine Color Urine Appearance Urine pH Ur Specific Saxon Urine Protein Urine Glucose (UA) Urine Ketones Urine Blood Urine Nitrite Urine Bilirubin Urine Urobilinogen Ur Leukocyte Esterase Urine WBC (Auto) Urine RBC (Auto) U Hyaline Cast (Auto) U Epithel Cells (Auto) Urine Bacteria (Auto) Hep Bs Antigen Pending Hep Bs Antibody Pending Hep Bs Antibody, Quant Pending Hep B Core IgM Ab Pending Blood Type Antibody Screen PG Care Time/CCT Total # of Minutes Spent Total Time Spent with Patient: Total time spent is greater than 50% in coordination of care (as documented) at patient's floor/unit and/or counseling patient: Coding Level of Care Code 63494 Post Operative Follow-Up Diagnoses Perforated gastric ulcer K25.5 Septic shock A41.9; R65.21 SONI (acute kidney injury) N17.9 Status post exploratory laparotomy Z98.890
[2024-06-22 13:31] LABS: BUN Creatinine Ratio 14.2 (10-20); Calcium 9.7 mg/dl (8.6-10.3); Creatinine Clr Calc Pharmacy 12.2 ml/min; Est GFR (African American) 12.7 ml/min; Est GFR (Non-African American) 10.9 ml/min; Potassium 5.4 mmol/L (3.5-5.1)
[2024-06-22] MEDS: EPOETIN ALFA 10,000 UNITS/ML VIAL IV ONE (15:09)
[2024-06-22 18:25] LABS: BUN Creatinine Ratio 12.8 (10-20); Calcium 8.7 mg/dl (8.6-10.3); Est GFR (African American) 17.6 ml/min; Est GFR (Non-African American) 15.2 ml/min
[2024-06-22] MEDS: ACETAMINOPHEN 1,000 MG/100 ML VIAL IV PRN (20:25)
[2024-06-23 00:11] LABS: BUN Creatinine Ratio 12.3 (10-20); Calcium 8.1 mg/dl (8.6-10.3); Creatinine Clr Calc Pharmacy 14.3 ml/min; Est GFR (African American) 15.3 ml/min; Est GFR (Non-African American) 13.2 ml/min; Potassium 4.8 mmol/L (3.5-5.1)
[2024-06-23 04:17] LABS: BUN Creatinine Ratio 13.4 (10-20); Creatinine Clr Calc Pharmacy 14.4 ml/min; Est GFR (African American) 15.4 ml/min; Est GFR (Non-African American) 13.3 ml/min; Magnesium 2.1 mg/dl (1.7-2.4); Phosphorus 4.8 mg/dl (2.5-4.9); Potassium 4.6 mmol/L (3.5-5.1)
[2024-06-23 04:35] LABS: Basophils # (auto) 0.05 K/uL (0.00-0.20); Dohle Bodies 1+; Eosinophils # (auto) 0.01 K/uL (0.00-0.50); Eosinophils % (auto) 0.2 %; Hematocrit (blood only) 22.4 % (37.0-47.0); Hemoglobin 7.4 g/dl (12.0-16.0); Immature Granulocytes # (auto) 0.15 K/uL (0.01-0.20); Immature Granulocytes % (auto) 2.9 %; Lymphocytes # (auto) 0.34 K/uL (1.20-3.40); Lymphocytes % (auto) 6.5 %; Mean Corpuscular Hemoglobin 29.4 pg (25.0-34.0); Mean Corpuscular Volume 88.9 fL (80.0-100.0); Mean Platelet Volume 9.5 fL (9.4-12.4); Monocytes # (auto) 0.12 K/uL (0.11-0.59); Monocytes % (auto) 2.3 %; Neutrophils # (auto) 4.56 K/uL (1.40-6.50); Neutrophils % (auto) 87.1 %; Platelet Count 180 K/uL (130-400); RDW Coefficient of Variation 13.2 % (11.5-14.5); RDW Standard Deviation 43.2 fL (36.4-46.3); Red Blood Count 2.52 M/uL (4.20-5.40); White Blood Count 5.23 K/ul (4.8-10.8)
[2024-06-23 06:31] LABS: Basophils # (auto) 0.03 K/uL (0.00-0.20); Basophils % (auto) 0.6 %; Dohle Bodies 1+; Eosinophils # (auto) 0.02 K/uL (0.00-0.50); Eosinophils % (auto) 0.4 %; Hematocrit (blood only) 25.4 % (37.0-47.0); Hemoglobin 8.3 g/dl (12.0-16.0); Immature Granulocytes # (auto) 0.13 K/uL (0.01-0.20); Immature Granulocytes % (auto) 2.6 %; Lymphocytes % (auto) 7.9 %; Mean Corpuscular Hemoglobin 29.4 pg (25.0-34.0); Mean Corpuscular Hgb Conc 32.7 g/dL (32.0-36.0); Mean Corpuscular Volume 90.1 fL (80.0-100.0); Mean Platelet Volume 9.8 fL (9.4-12.4); Neutrophils # (auto) 4.39 K/uL (1.40-6.50); Neutrophils % (auto) 86.5 %; Platelet Count 176 K/uL (130-400); RDW Coefficient of Variation 13.2 % (11.5-14.5); RDW Standard Deviation 43.1 fL (36.4-46.3); Red Blood Count 2.82 M/uL (4.20-5.40); White Blood Count 5.07 K/ul (4.8-10.8)
[2024-06-23 06:49] LABS: Toxic Vacuolation 3+
--- NOTE | 2024-06-23 08:46 | Nephrology Progress Note ---
Date of Service June 23, 2024 Assessment & Plan (1) SONI (acute kidney injury): Plan: * SONI due to septic shock related to perforated gastric ulcer in the setting of chronic NSAID use, ARB and loop diuretic therapy * POC discussed w/ ICU team this am. Although patient is oliguric, electrolyte balance is acceptable this am. Patient is not overtly azotemic. She is breathing comfortably flat in bed on O2 at 2 L/NC. Will hold HD today * Heplock IV * Monitor BMP, UO * Continue to hold diclofenac, furosemide, spironolactone and telmisartan (2) Chronic kidney disease, stage 3: Plan: * CKD stage G3b (moderate impairment). Baseline Cr 1.0-1.1 w/ EGFR 45 cc/min. Rrenal impairment is likely on the basis of microvascular disease. (3) Hyperkalemia: Plan: * Corrected (4) Free intraperitoneal air: Plan: * Repair of perforated gastric ulcer 06/21/24 * Continue IV PPI therapy * Surgery recommends 72 hr w/ NGT, then repeat abd CT w/ oral contrast (5) Septic shock: Plan: * Resolved. Phenylephrine gtt has been stopped * Continue IV Cipro/Flagyl Admission and Anticipated Discharge Date Admission Date: June 21, 2024 Subjective Ms. Chase was evaluated in the ICU this morning. She was A&O x3 and c/o sore throat due to recent surgery and NGT. UO 280 cc last 24 hours. HD provided yesterday. Only 2.5 hrs completed due to poor flow from temporary dialysis catheter/frequent alarms Review of Systems Constitutional: no fever Eyes: no problem reported Ear, Nose, Mouth, Throat: no problem reported Respiratory: no cough and no dyspnea Cardiovascular: no chest pain Gastrointestinal: + abdominal pain Genitourinary: no dysuria and no urinary frequency Physical Exam Constitutional: + ill appearing; not in distress Eyes: PERRL, conjunctivae normal, anicteric sclerae ENMT: external ear and nose normal, oropharynx normal Neck: trachea midline, no thyromegaly Respiratory: normal respiratory effort, lungs clear to auscultation Cardiovascular: RRR, no murmur, no edema Gastrointestinal (Abdomen): Inspection/Auscultation: + abdomen distended, + abdominal surgical scar and + hypoactive bowel sounds Skin: no rashes, warm and dry Results & Data Vital Signs (Past 12 Hours) Vital Signs Temp Pulse Resp BP Pulse Ox 06/23/24 08:02 115/64 06/23/24 08:02 115/64 06/23/24 08:02 115/64 06/23/24 08:00 37.5 C 99 H 20 96 06/23/24 07:33 37.5 C 104 H 24 93 06/23/24 07:30 87/66 L 06/23/24 07:30 87/66 L 06/23/24 07:30 87/66 L 06/23/24 07:30 87/66 L 06/23/24 07:27 37.6 C H 103 H 22 93 06/23/24 07:00 131/79 06/23/24 06:45 37.6 C H 113 H 23 90 06/23/24 06:33 37.6 C H 105 H 24 93 06/23/24 06:00 117/69 06/23/24 06:00 117/69 06/23/24 06:00 117/69 06/23/24 06:00 117/69 06/23/24 06:00 37.5 C 98 H 20 95 06/23/24 05:48 37.5 C 98 H 20 92 06/23/24 05:42 136/64 06/23/24 05:27 37.5 C 94 H 19 95 06/23/24 05:15 122/70 06/23/24 05:15 122/70 06/23/24 05:09 37.5 C 94 H 20 94 06/23/24 05:06 37.5 C 94 H 21 93 06/23/24 05:00 128/66 06/23/24 05:00 128/66 06/23/24 04:57 37.4 C 97 H 22 93 06/23/24 04:30 37.5 C 95 H 21 95 06/23/24 04:30 118/68 06/23/24 04:30 118/68 06/23/24 04:15 118/62 06/23/24 04:15 118/62 06/23/24 04:15 37.4 C 93 H 17 95 06/23/24 04:03 37.4 C 91 H 17 95 06/23/24 04:00 101/58 L 06/23/24 04:00 101/58 L 06/23/24 03:42 37.4 C 94 H 21 95 06/23/24 03:30 106/55 L 06/23/24 03:30 106/55 L 06/23/24 03:27 37.4 C 92 H 19 95 06/23/24 03:15 90/64 L 06/23/24 03:06 37.5 C 95 H 19 93 06/23/24 03:00 121/88 06/23/24 03:00 121/88 06/23/24 03:00 121/88 06/23/24 03:00 37.5 C 98 H 22 93 06/23/24 02:42 37.5 C 100 H 25 H 91 06/23/24 02:18 37.5 C 100 H 25 H 93 06/23/24 02:16 136/68 06/23/24 01:48 37.5 C 99 H 20 93 06/23/24 01:46 112/63 06/23/24 01:46 112/63 06/23/24 01:46 112/63 06/23/24 01:46 112/63 06/23/24 01:33 37.5 C 90 23 95 06/23/24 01:30 37.5 C 91 H 18 96 06/23/24 01:30 98/61 L 06/23/24 01:30 98/61 L 06/23/24 01:30 98/61 L 06/23/24 01:30 98/61 L 06/23/24 01:15 103/54 L 06/23/24 01:15 103/54 L 06/23/24 01:15 103/54 L 06/23/24 01:12 37.5 C 93 H 19 96 06/23/24 01:00 99/57 L 06/23/24 01:00 99/57 L 06/23/24 00:42 37.6 C H 94 H 20 96 06/23/24 00:33 37.6 C H 90 18 95 06/23/24 00:30 108/57 L 06/23/24 00:30 108/57 L 06/23/24 00:30 108/57 L 06/23/24 00:15 103/61 06/23/24 00:12 37.7 C H 95 H 20 96 06/23/24 00:03 37.8 C H 94 H 20 94 06/23/24 00:00 105/64 06/23/24 00:00 105/64 06/23/24 00:00 105/64 06/23/24 00:00 105/64 06/23/24 00:00 94 H 06/22/24 23:57 37.8 C H 90 18 94 06/22/24 23:39 37.8 C H 94 H 21 95 06/22/24 23:15 109/58 L 06/22/24 23:15 109/58 L 06/22/24 23:15 109/58 L 06/22/24 23:15 37.8 C H 93 H 20 94 06/22/24 23:12 37.8 C H 91 H 19 94 06/22/24 23:00 107/79 06/22/24 23:00 107/79 06/22/24 22:57 37.8 C H 90 18 94 06/22/24 22:45 37.9 C H 95 H 21 94 06/22/24 22:09 37.9 C H 93 H 18 94 06/22/24 22:00 104/55 L 06/22/24 21:57 37.9 C H 99 H 21 93 06/22/24 21:30 84/51 L 06/22/24 21:30 37.9 C H 95 H 20 94 06/22/24 21:15 37.9 C H 93 H 19 95 06/22/24 21:15 105/60 06/22/24 21:15 105/60 06/22/24 21:03 37.9 C H 100 H 23 93 06/22/24 21:00 110/56 L 06/22/24 20:48 37.9 C H 96 H 20 97 Laboratory Results Laboratory Results - last 24 hr 06/22/24 06/22/24 06/22/24 09:23 10:36 12:03 WBC RBC Hgb Hct MCV MCH MCHC RDW Std Deviation RDW Coeff of Rafael Plt Count MPV Immature Gran % (Auto) Neut % (Auto) Lymph % (Auto) Roberts % (Auto) Eos % (Auto) Baso % (Auto) Neut # (Auto) Lymph # (Auto) Roberts # (Auto) Eos # (Auto) Baso # (Auto) Immature Gran # (Auto) Toxic Vacuolation Dohle Bodies Sodium 134 L Potassium TNP 5.0 Chloride 108 H Carbon Dioxide 14 L Anion Gap 12 H BUN 56 H Creatinine 3.66 H D Est Cr Clr Drug Dosing 12.7 Est GFR ( Amer) 13.2 Est GFR (Non-Af Amer) 11.4 BUN/Creatinine Ratio 15.3 Glucose 166 H POC Glucose 127 H Calcium 9.9 Phosphorus Magnesium Total Bilirubin 0.3 Direct Bilirubin 0.0 AST 139 H ALT 139 H Alkaline Phosphatase 51 Total Protein 4.4 L Albumin 2.0 L Hep Bs Antigen Hep Bs Antibody Hep Bs Antibody, Quant Hep B Core IgM Ab 06/22/24 06/22/24 06/22/24 13:01 17:56 23:19 WBC RBC Hgb Hct MCV MCH MCHC RDW Std Deviation RDW Coeff of Rafael Plt Count MPV Immature Gran % (Auto) Neut % (Auto) Lymph % (Auto) Roberts % (Auto) Eos % (Auto) Baso % (Auto) Neut # (Auto) Lymph # (Auto) Roberts # (Auto) Eos # (Auto) Baso # (Auto) Immature Gran # (Auto) Toxic Vacuolation Dohle Bodies Sodium 133 L 135 L 134 L Potassium 5.4 H 5.0 4.8 Chloride 104 102 100 Carbon Dioxide 20 L 27 27 Anion Gap 9 6 7 BUN 54 H 37 H 40 H Creatinine 3.79 H 2.89 H D 3.24 H D Est Cr Clr Drug Dosing 12.2 16.0 14.3 Est GFR ( Amer) 12.7 17.6 15.3 Est GFR (Non-Af Amer) 10.9 15.2 13.2 BUN/Creatinine Ratio 14.2 12.8 12.3 Glucose 126 H 125 H 131 H POC Glucose Calcium 9.7 8.7 8.1 L Phosphorus Magnesium Total Bilirubin Direct Bilirubin AST ALT Alkaline Phosphatase Total Protein Albumin Hep Bs Antigen Pending Hep Bs Antibody Pending Hep Bs Antibody, Quant Pending Hep B Core IgM Ab Pending 06/23/24 06/23/24 03:41 05:48 WBC 5.23 5.07 RBC 2.52 L 2.82 L Hgb 7.4 L 8.3 L Hct 22.4 L 25.4 L MCV 88.9 90.1 MCH 29.4 29.4 MCHC 33.0 32.7 RDW Std Deviation 43.2 43.1 RDW Coeff of Rafael 13.2 13.2 Plt Count 180 176 MPV 9.5 9.8 Immature Gran % (Auto) 2.9 2.6 Neut % (Auto) 87.1 86.5 Lymph % (Auto) 6.5 7.9 Roberts % (Auto) 2.3 2.0 Eos % (Auto) 0.2 0.4 Baso % (Auto) 1.0 0.6 Neut # (Auto) 4.56 4.39 Lymph # (Auto) 0.34 L 0.40 L Roberts # (Auto) 0.12 0.10 L Eos # (Auto) 0.01 0.02 Baso # (Auto) 0.05 0.03 Immature Gran # (Auto) 0.15 0.13 Toxic Vacuolation 3+ Dohle Bodies 1+ 1+ Sodium 133 L Potassium 4.6 Chloride 98 Carbon Dioxide 28 Anion Gap 7 BUN 43 H Creatinine 3.22 H Est Cr Clr Drug Dosing 14.4 Est GFR ( Amer) 15.4 Est GFR (Non-Af Amer) 13.3 BUN/Creatinine Ratio 13.4 Glucose 129 H POC Glucose Calcium 8.0 L Phosphorus 4.8 D Magnesium 2.1 Total Bilirubin Direct Bilirubin AST ALT Alkaline Phosphatase Total Protein Albumin Hep Bs Antigen Hep Bs Antibody Hep Bs Antibody, Quant Hep B Core IgM Ab PG Care Time/CCT Total # of Minutes Spent Total Time Spent with Patient: Total time spent is greater than 50% in coordination of care (as documented) at patient's floor/unit and/or counseling patient: Coding Level of Care Code 92185 SUB INP/OBS CARE 3/50MIN Diagnoses SONI (acute kidney injury) N17.9 Chronic kidney disease, stage 3 N18.30 Hyperkalemia E87.5 Free intraperitoneal air K66.8 Septic shock A41.9; R65.21
[2024-06-23] MEDS: HYDROmorphone INJ 0.5 MG/0.5 ML SYR IV PRN (08:55)
[2024-06-23 09:16] LABS: Hep B Surface Ag with confirm Negative (Negative)
[2024-06-23 09:25] LABS: Hepatitis B Surface Ab Quant < 3.00 mIU/mL (>or=10mIU/mL Immune); Hepatitis B Surface Antibody Non-Immune
--- NOTE | 2024-06-23 10:10 | Critical Care Progress Note ---
Date of Service June 23, 2024 Assessment & Plan (1) Septic shock: (2) Perforated bowel: (3) SONI (acute kidney injury): (4) Hyperkalemia: Plan 74-year-old female status post exploratory laparotomy postop day 1. She had a perforated gastric ulcer. She had a gastric washout and repair of the perforated gastric ulcer. Septic shock is now improving status post gastric perforation and intra- abdominal sepsis. Will de-escalate antibiotics from meropenem to ertapenem. Patient completed hemodialysis 06/22/2024. No role for hemodialysis today as electrolytes and oxygenation have stabilized. Will discontinue bicarbonate infusion and start Plasma-Lyte. Patient can downgrade from PCU status. Awaiting general surgery input today. Continue NG tube to low intermittent wall suction. Continue Protonix. Downgrade to PCU. Admission and Anticipated Discharge Date Admission Date: June 21, 2024 Subjective Patient having waxing and waning delirium. Hemodynamics are improved and she is off pressors. Urine output slowly improving. Review of Systems Review of Systems: All systems reviewed & are unremarkable except as noted in HPI & below Physical Exam Constitutional: no acute distress Eyes: PERRL, conjunctivae normal, anicteric sclerae ENMT: external ear and nose normal, oropharynx normal Neck: trachea midline, no thyromegaly Respiratory: normal respiratory effort, lungs clear to auscultation Cardiovascular: RRR, no murmur, no edema Heart Sounds: normal S1 and normal S2 Gastrointestinal (Abdomen): Abdomen distended, semifirm. Bowel sounds auscultated in all 4 quadrants. She has SINCERE drains x 2 with serosanguineous drainage. Abdominal incision is covered by surgical dressing without shadowing or drainage Musculoskeletal: no cyanosis or clubbing, extremities motor strength 5/5 Skin: no rashes, warm and dry Neurologic: Lethargic but no focal signs. Psychiatric: Mildly anxious appearing. Genitourinary: Indwelling Burton catheter present. Urine yellow and concentrated Results & Data Results & Data Vital Signs (Past 12 Hours) Vital Signs Temp Pulse Resp BP Pulse Ox O2 Del Method O2 Flow Rate 06/23/24 09:37 114/70 06/23/24 09:37 114/70 06/23/24 09:30 37.5 C 98 H 17 96 06/23/24 09:30 89/58 L 06/23/24 09:30 89/58 L 06/23/24 09:03 37.4 C 103 H 21 90 06/23/24 09:01 92/60 L 06/23/24 09:01 92/60 L 06/23/24 08:57 37.4 C 102 H 24 91 06/23/24 08:54 37.4 C 102 H 25 H 93 06/23/24 08:03 37.5 C 98 H 24 95 06/23/24 08:02 115/64 06/23/24 08:02 115/64 06/23/24 08:02 115/64 06/23/24 08:00 Nasal Cannula 2 06/23/24 08:00 37.5 C 99 H 20 96 06/23/24 07:33 37.5 C 104 H 24 93 06/23/24 07:30 87/66 L 06/23/24 07:30 87/66 L 06/23/24 07:30 87/66 L 06/23/24 07:30 87/66 L 06/23/24 07:27 37.6 C H 103 H 22 93 06/23/24 07:00 131/79 06/23/24 06:48 115 H 06/23/24 06:45 37.6 C H 113 H 23 90 06/23/24 06:33 37.6 C H 105 H 24 93 06/23/24 06:00 117/69 06/23/24 06:00 117/69 06/23/24 06:00 117/69 06/23/24 06:00 117/69 06/23/24 06:00 37.5 C 98 H 20 95 06/23/24 05:48 37.5 C 98 H 20 92 06/23/24 05:42 136/64 06/23/24 05:27 37.5 C 94 H 19 95 06/23/24 05:15 122/70 06/23/24 05:15 122/70 06/23/24 05:09 37.5 C 94 H 20 94 06/23/24 05:06 37.5 C 94 H 21 93 06/23/24 05:00 128/66 06/23/24 05:00 128/66 06/23/24 04:57 37.4 C 97 H 22 93 06/23/24 04:30 37.5 C 95 H 21 95 06/23/24 04:30 118/68 06/23/24 04:30 118/68 06/23/24 04:15 118/62 06/23/24 04:15 118/62 06/23/24 04:15 37.4 C 93 H 17 95 06/23/24 04:03 37.4 C 91 H 17 95 06/23/24 04:00 101/58 L 06/23/24 04:00 101/58 L 06/23/24 03:42 37.4 C 94 H 21 95 06/23/24 03:30 106/55 L 06/23/24 03:30 106/55 L 06/23/24 03:27 37.4 C 92 H 19 95 06/23/24 03:15 90/64 L 06/23/24 03:06 37.5 C 95 H 19 93 06/23/24 03:00 121/88 06/23/24 03:00 121/88 06/23/24 03:00 121/88 06/23/24 03:00 37.5 C 98 H 22 93 06/23/24 02:42 37.5 C 100 H 25 H 91 06/23/24 02:18 37.5 C 100 H 25 H 93 06/23/24 02:16 136/68 06/23/24 01:48 37.5 C 99 H 20 93 06/23/24 01:46 112/63 06/23/24 01:46 112/63 06/23/24 01:46 112/63 06/23/24 01:46 112/63 06/23/24 01:33 37.5 C 90 23 95 06/23/24 01:30 37.5 C 91 H 18 96 06/23/24 01:30 98/61 L 06/23/24 01:30 98/61 L 06/23/24 01:30 98/61 L 06/23/24 01:30 98/61 L 06/23/24 01:15 103/54 L 06/23/24 01:15 103/54 L 06/23/24 01:15 103/54 L 06/23/24 01:12 37.5 C 93 H 19 96 06/23/24 01:00 99/57 L 06/23/24 01:00 99/57 L 06/23/24 00:42 37.6 C H 94 H 20 96 06/23/24 00:33 37.6 C H 90 18 95 06/23/24 00:30 108/57 L 06/23/24 00:30 108/57 L 06/23/24 00:30 108/57 L 06/23/24 00:15 103/61 06/23/24 00:12 37.7 C H 95 H 20 96 06/23/24 00:03 37.8 C H 94 H 20 94 06/23/24 00:00 105/64 06/23/24 00:00 105/64 06/23/24 00:00 105/64 06/23/24 00:00 105/64 06/23/24 00:00 94 H 06/22/24 23:57 37.8 C H 90 18 94 06/22/24 23:39 37.8 C H 94 H 21 95 06/22/24 23:15 109/58 L 06/22/24 23:15 109/58 L 06/22/24 23:15 109/58 L 06/22/24 23:15 37.8 C H 93 H 20 94 06/22/24 23:12 37.8 C H 91 H 19 94 06/22/24 23:00 107/79 06/22/24 23:00 107/79 06/22/24 22:57 37.8 C H 90 18 94 06/22/24 22:45 37.9 C H 95 H 21 94 06/22/24 22:09 37.9 C H 93 H 18 94 Coding Level of Care Code 53962 SUB INP/OBS CARE MIN Diagnoses Septic shock A41.9; R65.21 Perforated bowel K63.1 SONI (acute kidney injury) N17.9 Hyperkalemia E87.5
[2024-06-23] MEDS: PLASMA-LYTE A 1,000 ML IV SCH (10:17)
--- NOTE | 2024-06-23 12:05 | Surgery Progress Note ---
Date of Service June 23, 2024 Assessment & Plan (1) Perforated gastric ulcer: Plan: POD #2 laparotomy with repair of perforated gastric ulcer, likely secondary to chronic NSAID use for back pain. Continue NG tube, continue drains Continue PPI drip IS, out of bed to chair, ambulate Continue antibiotics Plan is to keep NG tube in place for 72 hours from surgery, then perform a CT scan with oral contrast through the NG tube, likely send. If there is no evid ence of leak then the NG tube can be removed and she can be advanced to clear liquids. She will need to continue on a PPI and avoid NSAIDs as an outpatient Appreciate ICU care of this patient, she has been downgraded and we will consult the medicine service Surgery will follow, call with questions or concerns (2) Septic shock: (3) SONI (acute kidney injury): (4) Status post exploratory laparotomy: Admission and Anticipated Discharge Date Admission Date: June 21, 2024 Subjective POD #2 laparotomy with Uriel patch of perforated gastric ulcer likely secondary to NSAID use. She underwent dialysis yesterday. She has had some confusion on and off since yesterday. She is not complaining of any significant abdominal pain. Physical Exam Constitutional: WD/WN, vitals as above Respiratory: normal respiratory effort, lungs clear to auscultation Cardiovascular: RRR, no murmur, no edema Gastrointestinal (Abdomen): Inspection/Auscultation: + abdominal surgical incision (Dressing changed, incision without infection) and + abdominal surgical drain present (Gastric drain SS output, pelvic drain SS output) Percussion/Palpation: + abdomen tender (Appropriately tender to palpation) Results & Data Vital Signs (Past 12 Hours) Vital Signs Temp Pulse Resp BP Pulse Ox O2 Del Method O2 Flow Rate 06/23/24 11:00 37.4 C 93 H 16 92 06/23/24 10:33 37.4 C 96 H 18 93 06/23/24 10:30 108/59 L 06/23/24 10:30 108/59 L 06/23/24 10:27 37.4 C 98 H 20 94 06/23/24 10:00 90/61 L 06/23/24 10:00 37.5 C 100 H 20 94 06/23/24 09:39 37.5 C 103 H 17 97 06/23/24 09:37 114/70 06/23/24 09:37 114/70 06/23/24 09:30 37.5 C 98 H 17 96 06/23/24 09:30 89/58 L 06/23/24 09:30 89/58 L 06/23/24 09:03 37.4 C 103 H 21 90 06/23/24 09:01 92/60 L 06/23/24 09:01 92/60 L 06/23/24 08:57 37.4 C 102 H 24 91 06/23/24 08:54 37.4 C 102 H 25 H 93 06/23/24 08:03 37.5 C 98 H 24 95 06/23/24 08:02 115/64 06/23/24 08:02 115/64 06/23/24 08:02 115/64 06/23/24 08:00 Nasal Cannula 2 06/23/24 08:00 37.5 C 99 H 20 96 06/23/24 07:33 37.5 C 104 H 24 93 06/23/24 07:30 87/66 L 06/23/24 07:30 87/66 L 06/23/24 07:30 87/66 L 06/23/24 07:30 87/66 L 06/23/24 07:27 37.6 C H 103 H 22 93 06/23/24 07:00 131/79 06/23/24 06:48 115 H 06/23/24 06:45 37.6 C H 113 H 23 90 06/23/24 06:33 37.6 C H 105 H 24 93 06/23/24 06:00 117/69 06/23/24 06:00 117/69 06/23/24 06:00 117/69 06/23/24 06:00 117/69 06/23/24 06:00 37.5 C 98 H 20 95 06/23/24 05:48 37.5 C 98 H 20 92 06/23/24 05:42 136/64 06/23/24 05:27 37.5 C 94 H 19 95 06/23/24 05:15 122/70 06/23/24 05:15 122/70 06/23/24 05:09 37.5 C 94 H 20 94 06/23/24 05:06 37.5 C 94 H 21 93 06/23/24 05:00 128/66 06/23/24 05:00 128/66 06/23/24 04:57 37.4 C 97 H 22 93 06/23/24 04:30 37.5 C 95 H 21 95 06/23/24 04:30 118/68 06/23/24 04:30 118/68 06/23/24 04:15 118/62 06/23/24 04:15 118/62 06/23/24 04:15 37.4 C 93 H 17 95 06/23/24 04:03 37.4 C 91 H 17 95 06/23/24 04:00 101/58 L 06/23/24 04:00 101/58 L 06/23/24 03:42 37.4 C 94 H 21 95 06/23/24 03:30 106/55 L 06/23/24 03:30 106/55 L 06/23/24 03:27 37.4 C 92 H 19 95 06/23/24 03:15 90/64 L 06/23/24 03:06 37.5 C 95 H 19 93 06/23/24 03:00 121/88 06/23/24 03:00 121/88 06/23/24 03:00 121/88 06/23/24 03:00 37.5 C 98 H 22 93 06/23/24 02:42 37.5 C 100 H 25 H 91 06/23/24 02:18 37.5 C 100 H 25 H 93 06/23/24 02:16 136/68 06/23/24 01:48 37.5 C 99 H 20 93 06/23/24 01:46 112/63 06/23/24 01:46 112/63 06/23/24 01:46 112/63 06/23/24 01:46 112/63 06/23/24 01:33 37.5 C 90 23 95 06/23/24 01:30 37.5 C 91 H 18 96 06/23/24 01:30 98/61 L 06/23/24 01:30 98/61 L 06/23/24 01:30 98/61 L 06/23/24 01:30 98/61 L 06/23/24 01:15 103/54 L 06/23/24 01:15 103/54 L 06/23/24 01:15 103/54 L 06/23/24 01:12 37.5 C 93 H 19 96 06/23/24 01:00 99/57 L 06/23/24 01:00 99/57 L 06/23/24 00:42 37.6 C H 94 H 20 96 06/23/24 00:33 37.6 C H 90 18 95 06/23/24 00:30 108/57 L 06/23/24 00:30 108/57 L 06/23/24 00:30 108/57 L 06/23/24 00:15 103/61 06/23/24 00:12 37.7 C H 95 H 20 96 06/23/24 00:03 37.8 C H 94 H 20 94 Laboratory Results Laboratory Results - last 24 hr 06/22/24 06/22/24 06/22/24 12:03 13:01 17:56 WBC RBC Hgb Hct MCV MCH MCHC RDW Std Deviation RDW Coeff of Rafael Plt Count MPV Immature Gran % (Auto) Neut % (Auto) Lymph % (Auto) [place] % (Auto) Eos % (Auto) Baso % (Auto) Neut # (Auto) Lymph # (Auto) [place] # (Auto) Eos # (Auto) Baso # (Auto) Immature Gran # (Auto) Toxic Vacuolation Dohle Bodies Sodium 133 L 135 L Potassium 5.4 H 5.0 Chloride 104 102 Carbon Dioxide 20 L 27 Anion Gap 9 6 BUN 54 H 37 H Creatinine 3.79 H 2.89 H D Est Cr Clr Drug Dosing 12.2 16.0 Est GFR ( Amer) 12.7 17.6 Est GFR (Non-Af Amer) 10.9 15.2 BUN/Creatinine Ratio 14.2 12.8 Glucose 126 H 125 H POC Glucose 127 H Calcium 9.7 8.7 Phosphorus Magnesium Procalcitonin Hep Bs Antigen Negative Hep Bs Antibody Non-Immune Hep Bs Antibody, Quant < 3.00 Hep B Core IgM Ab Pending 06/22/24 06/23/24 06/23/24 23:19 03:41 05:48 WBC 5.23 5.07 RBC 2.52 L 2.82 L Hgb 7.4 L 8.3 L Hct 22.4 L 25.4 L MCV 88.9 90.1 MCH 29.4 29.4 MCHC 33.0 32.7 RDW Std Deviation 43.2 43.1 RDW Coeff of Rafael 13.2 13.2 Plt Count 180 176 MPV 9.5 9.8 Immature Gran % (Auto) 2.9 2.6 Neut % (Auto) 87.1 86.5 Lymph % (Auto) 6.5 7.9 [place] % (Auto) 2.3 2.0 Eos % (Auto) 0.2 0.4 Baso % (Auto) 1.0 0.6 Neut # (Auto) 4.56 4.39 Lymph # (Auto) 0.34 L 0.40 L [place] # (Auto) 0.12 0.10 L Eos # (Auto) 0.01 0.02 Baso # (Auto) 0.05 0.03 Immature Gran # (Auto) 0.15 0.13 Toxic Vacuolation 3+ Dohle Bodies 1+ 1+ Sodium 134 L 133 L Potassium 4.8 4.6 Chloride 100 98 Carbon Dioxide 27 28 Anion Gap 7 7 BUN 40 H 43 H Creatinine 3.24 H D 3.22 H Est Cr Clr Drug Dosing 14.3 14.4 Est GFR ( Amer) 15.3 15.4 Est GFR (Non-Af Amer) 13.2 13.3 BUN/Creatinine Ratio 12.3 13.4 Glucose 131 H 129 H POC Glucose Calcium 8.1 L 8.0 L Phosphorus 4.8 D Magnesium 2.1 Procalcitonin Hep Bs Antigen Hep Bs Antibody Hep Bs Antibody, Quant Hep B Core IgM Ab 06/23/24 10:26 WBC RBC Hgb Hct MCV MCH MCHC RDW Std Deviation RDW Coeff of Rafael Plt Count MPV Immature Gran % (Auto) Neut % (Auto) Lymph % (Auto) [place] % (Auto) Eos % (Auto) Baso % (Auto) Neut # (Auto) Lymph # (Auto) [place] # (Auto) Eos # (Auto) Baso # (Auto) Immature Gran # (Auto) Toxic Vacuolation Dohle Bodies Sodium Potassium Chloride Carbon Dioxide Anion Gap BUN Creatinine Est Cr Clr Drug Dosing Est GFR ( Amer) Est GFR (Non-Af Amer) BUN/Creatinine Ratio Glucose POC Glucose Calcium Phosphorus Magnesium Procalcitonin Pending Hep Bs Antigen Hep Bs Antibody Hep Bs Antibody, Quant Hep B Core IgM Ab PG Care Time/CCT Total # of Minutes Spent Total Time Spent with Patient: Total time spent is greater than 50% in coordination of care (as documented) at patient's floor/unit and/or counseling patient: Coding Level of Care Code 16483 Post Operative Follow-Up Diagnoses Perforated gastric ulcer K25.5 Septic shock A41.9; R65.21 SONI (acute kidney injury) N17.9 Status post exploratory laparotomy Z98.890
[2024-06-23] MEDS: ERTAPENEM SODIUM 500 MG in SYRINGE 0 ML IV SCH (12:08)
[2024-06-23] MEDS ORDERED: GLUCAGON FOR INJ 1 MG VIAL SQ PRN (13:46)
[2024-06-23] MEDS ORDERED: CARBOHYDRATES FOR HYPOGLYCEMIA PO PRN (13:46)
[2024-06-23] MEDS ORDERED: GLUCOSE 10 TAB/TUBE PO PRN (13:46)
[2024-06-23] MEDS ORDERED: GLUCOSE 40% GEL 15 GM TUBE PO PRN (13:46)
[2024-06-23] MEDS: DEXTROSE 50% 50 ML SYRINGE IV PRN (13:49)
[2024-06-23] MEDS: DEXTROSE 50% 50 ML SYRINGE IV ONE (13:52)
[2024-06-23] MEDS: D5W AND LACTATED RINGERS 1,000 ML IV SCH (13:55)
--- NOTE | 2024-06-23 14:26 | Communication Note ---
Date of Service: June 23, 2024 Bridge note Gisela is a 74-year-old female presented to the ER 06/01 with abdominal pain after undergoing a colonoscopy, during which an area of stricture with ulceration was noted. Patient subsequently developed abdominal pain which gradually worsened and was seen in the ER. CTA/P showed mild abdominal ascites, scattered pneumoperitoneum suspicious for bowel perforation. Chest x-ray showed suspected free air under the right diaphragm. Patient presented to the ER fluid responsive but initially hypotensive. Patient was taken for ex lap and admitted by surgery that evening. Ex lap identified a perforated gastric ulcer and Uriel patch of perforated ulcer was performed. Patient was subsequently transferred to the ICU for septic shock due to peritonitis with perforated gastric ulcer. She was transiently hypotensive requiring phenylephrine, and was left intubated following her surgical procedure. She is initially on meropenem, was de-escalated to ertapenem. She underwent hemodialysis 06/22 for hyperkalemia and poor output. She clinically progressed and was extubated. Subsequently downgraded from ICU. Due to her medical complexity she was recommended for transfer to medical service at time of downgrade. Time bedside assessment NGT is in place. Patient is nondistressed. Endorses some postoperative abdominal discomfort improved from prior. Denies new/worsening pain. Denies shortness of breath. Denies chest pain. Abdomen is tender surrounding surgical site, but soft and without rebound/guarding. 2X SINCERE drains are intact left with serosanguineous fluid right with serous fluid. Sepsis 2/2 perforated gastric ulcer 06/21/2024: S/p ex lap with identified perforated gastric ulcer s/p repair Initially on meropenem, narrowed, continue ertapenem Surgery following. Recommended to continue NGT for 72 hours, then we will perform a CT scan with oral contrast. If no evidence of leak then we will advance to clear liquids. Plasma-Lyte converted to D5 LR due to hypoglycemia while n.p.o. SONI, CKD 3 Baseline creatinine 11.1. Acutely elevated creatinine with poor urine output in the setting of sepsis Hyperkalemic which improved after 1 dialysis session Nephrology following. Patient has been transition from bicarb drip to LR. Was hypoglycemic and subsequently switched to D5 LR while NPO. 05/27 at time of assessment does have lower extremity pitting edema, and lung sounds are diminished however she is breathing comfortably on 2 L oxygen. Anticipate possible dialysis tomorrow, no dialysis today. Potassium is normal today, urine output is improving. No critical volume overload ARB/spironolactone/NSAIDs/Lasix held. Hypertension Echo 03/2021: LVEF hyperdynamic. Normal PA/RA pressures. Normal RV size and function. Has history of grade 2 diastolic dysfunction Nebivolol held while n.p.o. and for hypotension, pressors weaning IV beta-marie deferred at time of assessment due to borderline BP Right-sided colonic stricture, colonic mass Following with GI as an outpatient, and recent colonoscopy as noted. Cause of pneumoperitoneum was identified as perforated gastric ulcer.Continue outpatient follow-up. Path report showed fragments of colonic mucosa with focal ulceration and reactive changes no diagnostic evidence of malignancy identified from sampled tissue. Hypothyroidism Synthroid converted to IV 2/2 NPO Hyperlipidemia Statin held while n.p.o.
[2024-06-23] MEDS: PANTOprazole 40 MG in SYRINGE BID IV SCH (20:50)
--- NOTE | 2024-06-24 00:36 | Electrocardiogram Report ---
Test Reason : Blood Pressure : */* mmHG Vent. Rate : 82 BPM Atrial Rate : 82 BPM P-R Int : 198 ms QRS Dur : 98 ms QT Int : 352 ms P-R-T Axes : 34 2 12 degrees QTcB Int : 411 ms Normal sinus rhythm Incomplete right bundle branch block Cannot rule out Anterior infarct , age undetermined Abnormal ECG When compared with ECG of 22-Oct-2022 11:57, No significant change Confirmed by Hussain Acuña ([id number]) on 06/24/2024 12:36:47 AM Referred By: REFERRED SELF Confirmed By: Hussain Acuña
--- NOTE | 2024-06-24 00:40 | Electrocardiogram Report ---
Test Reason : Blood Pressure : */* mmHG Vent. Rate : 84 BPM Atrial Rate : 84 BPM P-R Int : 174 ms QRS Dur : 86 ms QT Int : 348 ms P-R-T Axes : 30 -11 4 degrees QTcB Int : 411 ms Normal sinus rhythm Low voltage QRS Poor R wave progression, consider anterior SD vs. lead placement vs. LVH Incomplete right bundle branch block Abnormal ECG When compared with ECG of 21-Jun-2024 18:51, QRS voltage has decreased Confirmed by Hussain Acuña ([id number]) on 06/24/2024 12:40:28 AM Referred By: REFERRED SELF Confirmed By: Hussain Acuña
[2024-06-24 05:11] LABS: Hematocrit (blood only) 20.1 % (37.0-47.0); Hemoglobin 6.6 g/dl (12.0-16.0); Mean Corpuscular Hemoglobin 29.3 pg (25.0-34.0); Mean Corpuscular Hgb Conc 32.8 g/dL (32.0-36.0); Mean Corpuscular Volume 89.3 fL (80.0-100.0); Mean Platelet Volume 9.9 fL (9.4-12.4); Nucleated RBC # (auto) 0.02 K/uL (0.00-0.12); Nucleated RBC % (auto) 0.3 %; Platelet Count 143 K/uL (130-400); RDW Coefficient of Variation 13.1 % (11.5-14.5); RDW Standard Deviation 42.5 fL (36.4-46.3); Red Blood Count 2.25 M/uL (4.20-5.40); White Blood Count 6.44 K/ul (4.8-10.8)
[2024-06-24 05:12] LABS: BUN Creatinine Ratio 19.1 (10-20); Calcium 8.1 mg/dl (8.6-10.3); Creatinine Clr Calc Pharmacy 21.7 ml/min; Est GFR (African American) 24.4 ml/min; Est GFR (Non-African American) 21.1 ml/min; Magnesium 2.2 mg/dl (1.7-2.4); Phosphorus 3.5 mg/dl (2.5-4.9); Potassium 3.6 mmol/L (3.5-5.1)
[2024-06-24 05:15] LABS: Basophils # (auto) 0.03 K/uL (0.00-0.20); Basophils % (auto) 0.5 %; Dohle Bodies 1+; Eosinophils % (auto) 1.6 %; Immature Granulocytes # (auto) 0.04 K/uL (0.01-0.20); Immature Granulocytes % (auto) 0.6 %; Lymphocytes # (auto) 0.62 K/uL (1.20-3.40); Lymphocytes % (auto) 9.6 %; Monocytes # (auto) 0.18 K/uL (0.11-0.59); Monocytes % (auto) 2.8 %; Neutrophils # (auto) 5.47 K/uL (1.40-6.50); Neutrophils % (auto) 84.9 %; Polychromasia 1+
[2024-06-24] MEDS ORDERED: SODIUM CHLORIDE 0.9% 250 ML IV PRN (05:42)
--- NOTE | 2024-06-24 07:49 | Hospitalist Progress Note ---
Date of Service June 24, 2024 Assessment & Plan (1) Perforated gastric ulcer: (2) SONI (acute kidney injury): (3) Septic shock: (4) Hypothyroidism: (5) HTN (hypertension): (6) Hyperlipidemia: (7) Colonic mass: Plan 74-year-old female presented to the ER 06/01 with abdominal pain after undergoing a colonoscopy, during which an area of stricture with ulceration was noted. Patient subsequently developed abdominal pain which gradually worsened and was seen in the ER. CTA/P showed mild abdominal ascites, scattered pneumoperitoneum suspicious for bowel perforation. Chest x-ray showed suspected free air under the right diaphragm. Patient presented to the ER fluid responsiv e but initially hypotensive. Patient was taken for ex lap and admitted by surgery that evening. Ex lap identified a perforated gastric ulcer and Uriel patch of perforated ulcer was performed. Patient was subsequently transferred to the ICU for septic shock due to peritonitis with perforated gastric ulcer. She was transiently hypotensive requiring phenylephrine, and was left intubated following her surgical procedure. She is initially on meropenem, was de- escalated to ertapenem. She underwent hemodialysis 06/22 for hyperkalemia and poor output. She clinically progressed and was extubated. Subsequently downgraded from ICU. Due to her medical complexity she was recommended for transfer to medical service at time of downgrade. Time bedside assessment NGT is in place. Patient is nondistressed. Endorses some postoperative abdominal discomfort improved from prior. Denies new/worsening pain. Denies shortness of breath. Denies chest pain. Abdomen is tender surrounding surgical site, but soft and without rebound/guarding. 2X SINCERE drains are intact left with serosanguineous fluid right with serous fluid. #Sepsis #Perforated gastric ulcer - pt was using diclofenac for long time for back pain - avoid NSAIDs 06/21/2024: S/p ex lap with identified perforated gastric ulcer s/p repair - periotoneal fluid culture (06/21): pseudomonas, BCx (06/22) NGTD Initially on meropenem, narrowed, continue ertapenem Surgery following. Recommended to continue NGT for 72 hours, then we will perform a CT scan with oral contrast (to be done 06/25). If no evidence of leak then we will advance to clear liquids. Plasma-Lyte converted to D5 LR due to hypoglycemia while n.p.o. #SONI, CKD 3 Baseline creatinine 11.1. Acutely elevated creatinine with poor urine output in the setting of sepsis Hyperkalemic which improved after 1 dialysis session Nephrology following. Patient has been transition from bicarb drip to LR. Was hypoglycemic and subsequently switched to D5 LR while NPO. 06/23 at time of assessment does have lower extremity pitting edema, and lung sounds are diminished however she is breathing comfortably on 2 L oxygen. Anticipate possible dialysis tomorrow, no dialysis today. Potassium is normal today, urine output is improving. No critical volume overload ARB/spironolactone/NSAIDs/Lasix held. Hypertension Echo 03/2021: LVEF hyperdynamic. Normal PA/RA pressures. Normal RV size and function. Has history of grade 2 diastolic dysfunction Nebivolol held while n.p.o. and for hypotension, pressors weaning IV beta-marie deferred at time of assessment due to borderline BP Right-sided colonic stricture, colonic mass Following with GI as an outpatient, and recent colonoscopy as noted. Cause of pneumoperitoneum was identified as perforated gastric ulcer.Continue outpatient follow-up. Path report showed fragments of colonic mucosa with focal ulceration and reactive changes no diagnostic evidence of malignancy identified from sampled tissue. Hypothyroidism Synthroid converted to IV 2/2 NPO Hyperlipidemia Statin held while n.p.o. Admission and Anticipated Discharge Date Admission Date: June 21, 2024 Subjective No acute events Currently stating she is feeling better s/p PRBC transfusion Review of Systems Review of Systems: Comprehensive ROS completed Physical Exam Physical Exam: Gen: no acute distress HEENT: NC/AT, MMM, NGT in place, right IJ Lungs: CTAB CVS: s1s2 nl , RRR Abd: surgical incision c/d/i, nl BS, soft Ext: + edema Psych: pleasant, cooperative Results & Data Results & Data Vital Signs (Past 12 Hours) Vital Signs Temp Pulse Resp BP Pulse Ox O2 Del Method O2 Flow Rate 06/24/24 07:39 36.6 C 99 H 20 130/77 92 06/24/24 07:31 36.6 C 06/24/24 07:27 88 21 93 06/24/24 07:27 145/75 H 06/24/24 07:27 145/75 H 06/24/24 06:48 94 H 15 06/24/24 04:00 102/62 06/24/24 04:00 92 H 17 06/24/24 03:50 37.1 C 15 93 Nasal Cannula 2 06/24/24 02:06 93 H 21 06/24/24 02:00 132/69 06/24/24 01:57 97 H 19 06/24/24 00:00 98 H 21 06/24/24 00:00 134/58 L 06/24/24 00:00 134/58 L 06/24/24 00:00 134/58 L 06/24/24 00:00 134/58 L 06/23/24 23:50 36.6 C 15 93 Nasal Cannula 2 06/23/24 23:42 94 H 06/23/24 22:18 99 H 17 06/23/24 22:01 114/79 06/23/24 22:00 107 H 27 H 06/23/24 20:30 98 H 18 06/23/24 20:30 121/60 06/23/24 20:30 121/60 06/23/24 20:21 96 H 17 06/23/24 20:00 91/69 L 06/23/24 20:00 37.3 C 06/23/24 20:00 Nasal Cannula 2 06/23/24 20:00 91/69 L 06/23/24 20:00 91/69 L 06/23/24 19:54 105 H 23 PG Care Time/CCT Total # of Minutes Spent Total Time Spent with Patient: Total time spent is greater than 50% in coordination of care (as documented) at patient's floor/unit and/or counseling patient: Coding Level of Care Code 27693 SUB INP/OBS CARE 2MIN Diagnoses Perforated gastric ulcer K25.5 SONI (acute kidney injury) N17.9 Septic shock A41.9; R65.21 Hypothyroidism E03.9 HTN (hypertension) I10 Hyperlipidemia E78.5 Colonic mass K63.89
--- NOTE | 2024-06-24 08:14 | Surgery Progress Note ---
Date of Service June 24, 2024 Assessment & Plan (1) Perforated gastric ulcer: Plan: slow progress 1 PRBC per ICU team with HCT of 20 CT scan tomorrow; if clear begin diet Admission and Anticipated Discharge Date Admission Date: June 21, 2024 Subjective pain controlled no complaints Review of Systems Constitutional: no fever and no chills Respiratory: no cough and no dyspnea Cardiovascular: no chest pain Gastrointestinal: + abdominal pain; no nausea and no vomit ing NG in place Genitourinary: no dysuria Musculoskeletal: no back pain Neurologic: no localized weakness and no generalized weakness Psychiatric: no behavioral changes Physical Exam Constitutional: WD/WN, vitals as above Respiratory: normal respiratory effort, lungs clear to auscultation Cardiovascular: RRR, no murmur, no edema Gastrointestinal (Abdomen): Inspection/Auscultation: abdomen normal to inspection, normal bowel sounds and + abdominal surgical incision; abdomen not distended Percussion/Palpation: + abdomen tender and abdomen soft; no guarding and abdomen not rigid drains with serous drainage Musculoskeletal: Head/Neck/Chest: normocephalic and head atraumatic Skin: no rashes, warm and dry Results & Data Vital Signs (Past 12 Hours) Vital Signs Temp Pulse Resp BP Pulse Ox O2 Del Method O2 Flow Rate 06/24/24 08:03 36.8 C 98 H 20 114/66 93 2 06/24/24 07:39 36.6 C 99 H 20 130/77 92 06/24/24 07:31 36.6 C 06/24/24 07:27 88 21 93 06/24/24 07:27 145/75 H 06/24/24 07:27 145/75 H 06/24/24 06:48 94 H 15 06/24/24 04:00 102/62 06/24/24 04:00 92 H 17 06/24/24 03:50 37.1 C 15 93 Nasal Cannula 2 06/24/24 02:06 93 H 21 06/24/24 02:00 132/69 06/24/24 01:57 97 H 19 06/24/24 00:00 98 H 21 06/24/24 00:00 134/58 L 06/24/24 00:00 134/58 L 06/24/24 00:00 134/58 L 06/24/24 00:00 134/58 L 06/23/24 23:50 36.6 C 15 93 Nasal Cannula 2 06/23/24 23:42 94 H 06/23/24 22:18 99 H 17 06/23/24 22:01 114/79 06/23/24 22:00 107 H 27 H 06/23/24 20:30 98 H 18 06/23/24 20:30 121/60 06/23/24 20:30 121/60 06/23/24 20:21 96 H 17
--- NOTE | 2024-06-24 10:04 | Nephrology Progress Note ---
Date of Service June 24, 2024 Assessment & Plan (1) SONI (acute kidney injury): Plan: * SONI due to septic shock related to perforated gastric ulcer in the setting of chronic NSAID use, ARB and loop diuretic therapy * Urine output improving * Creatinine trending down * Electrolytes acceptable * Dialysis is not required today * Document strict I/O's * Remains on D5W+LR while NPO * Repeat metabolic profile tomorrow AM * Continue to hold diclofenac, furosemide, spironolactone and telmisartan (2) Chronic kidney disease, stage 3: Plan: * CKD stage G3b (moderate impairment). Baseline Cr 1.0-1.1 w/ EGFR 45 cc/min. Rrenal impairment is likely on the basis of microvascular disease. (3) Free intraperitoneal air: Plan: * Repair of perforated gastric ulcer 06/21/24 * Continue IV PPI therapy * Surgery recommends 72 hr w/ NGT, then repeat abd CT w/ oral contrast (tomorrow) (4) Septic shock: Plan: * Resolved. Phenylephrine gtt has been stopped * Remains on Ertapenem (5) Anemia: Plan: * PRBC transfusion support is being provided this AM * No signs of bleeding reported (no BM, surgical drains with serous drainage) * CT per surgical orders * Monitor H/H and transfuse PRN to maintain Hgb >8 Admission and Anticipated Discharge Date Admission Date: June 21, 2024 Subjective No acute events overnight. Gisela is resting comfortably in bed this AM. No fevers or chills. Pain reasonably controlled with medications. Burton is draining a small amount of clear yellow urine. PRBC transfusion infusing. Abdominal remains distended. NGT to suction. Review of Systems Review of Systems: All systems reviewed & are unremarkable except as noted in HPI & below Constitutional: + fatigue and + weakness Respiratory: no dyspnea Cardiovascular: + edema (arms and legs) Physical Exam Constitutional: well developed and + ill appearing Eyes: + anicteric sclerae ENMT: Nose: + external nose abnormality (NGT to suction) Mouth: + dry oral mucous membranes Neck: normal visual inspection and trachea midline Respiratory: normal respiratory effort Auscultation: + diminished lung sounds Cardiovascular: Rate/Rhythm: regular rate Heart Sounds: normal S1 and normal S2 Extremities: + edema (third spacing fluid notably in hands, forearms, and legs) Gastrointestinal (Abdomen): Inspection/Auscultation: + abdomen distended, + abdominal surgical incision (with dressing cdi), + abdominal surgical drain present (SINCERE with serous drainage) and + hypoactive bowel sounds Perc ussion/Palpation: + abdomen tender; no guarding and abdomen not rigid Musculoskeletal: Extremities: no cyanosis and no clubbing Skin: normal turgor; no jaundice Neurologic: Motor/Sensory: no tremor and no asterixis Psychiatric: Orientation: alert and oriented x 3 Genitourinary: Burton with clear yellow urine Results & Data Vital Signs (Past 12 Hours) Vital Signs Temp Pulse Resp BP Pulse Ox O2 Del Method O2 Flow Rate 06/24/24 08:48 91 H 18 137/66 94 2 06/24/24 08:18 88 16 129/64 95 2 06/24/24 08:03 36.8 C 98 H 20 114/66 93 2 06/24/24 07:39 36.6 C 99 H 20 130/77 92 06/24/24 07:31 36.6 C 06/24/24 07:30 Nasal Cannula 2 06/24/24 07:27 88 21 93 06/24/24 07:27 145/75 H 06/24/24 07:27 145/75 H 06/24/24 06:50 96 H 06/24/24 06:48 94 H 15 06/24/24 04:00 102/62 06/24/24 04:00 92 H 17 06/24/24 03:50 37.1 C 15 93 Nasal Cannula 2 06/24/24 02:06 93 H 21 06/24/24 02:00 132/69 06/24/24 01:57 97 H 19 06/24/24 00:00 98 H 21 06/24/24 00:00 134/58 L 06/24/24 00:00 134/58 L 06/24/24 00:00 134/58 L 06/24/24 00:00 134/58 L 06/23/24 23:50 36.6 C 15 93 Nasal Cannula 2 06/23/24 23:42 94 H 06/23/24 22:18 99 H 17 06/23/24 22:01 114/79 06/23/24 22:00 107 H 27 H Laboratory Results Laboratory Results - last 24 hr 06/21/24 06/22/24 06/23/24 19:06 13:01 10:26 WBC RBC Hgb Hct MCV MCH MCHC RDW Std Deviation RDW Coeff of Rafael Plt Count MPV Immature Gran % (Auto) Neut % (Auto) Lymph % (Auto) [place] % (Auto) Eos % (Auto) Baso % (Auto) Neut # (Auto) Lymph # (Auto) [place] # (Auto) Eos # (Auto) Baso # (Auto) Immature Gran # (Auto) Absolute Nucleated RBC Nucleated RBC % (auto) Dohle Bodies Polychromasia Sodium Potassium Chloride Carbon Dioxide Anion Gap BUN Creatinine Est Cr Clr Drug Dosing Est GFR ( Amer) Est GFR (Non-Af Amer) BUN/Creatinine Ratio Glucose POC Glucose Calcium Phosphorus Magnesium Procalcitonin 25.80 H Hep B Core IgM Ab NON-REACTIVE Blood Type AB Positive Antibody Screen NEGATIVE Crossmatch See Detail 06/23/24 06/23/24 06/23/24 13:41 13:42 14:11 WBC RBC Hgb Hct MCV MCH MCHC RDW Std Deviation RDW Coeff of Rafael Plt Count MPV Immature Gran % (Auto) Neut % (Auto) Lymph % (Auto) [place] % (Auto) Eos % (Auto) Baso % (Auto) Neut # (Auto) Lymph # (Auto) [place] # (Auto) Eos # (Auto) Baso # (Auto) Immature Gran # (Auto) Absolute Nucleated RBC Nucleated RBC % (auto) Dohle Bodies Polychromasia Sodium Potassium Chloride Carbon Dioxide Anion Gap BUN Creatinine Est Cr Clr Drug Dosing Est GFR ( Amer) Est GFR (Non-Af Amer) BUN/Creatinine Ratio Glucose POC Glucose 62 L* 63 L* 103 H Calcium Phosphorus Magnesium Procalcitonin Hep B Core IgM Ab Blood Type Antibody Screen Crossmatch 06/23/24 06/24/24 18:40 04:05 WBC 6.44 RBC 2.25 L Hgb 6.6 L* Hct 20.1 L* MCV 89.3 MCH 29.3 MCHC 32.8 RDW Std Deviation 42.5 RDW Coeff of Rafael 13.1 Plt Count 143 MPV 9.9 Immature Gran % (Auto) 0.6 Neut % (Auto) 84.9 Lymph % (Auto) 9.6 [place] % (Auto) 2.8 Eos % (Auto) 1.6 Baso % (Auto) 0.5 Neut # (Auto) 5.47 Lymph # (Auto) 0.62 L [place] # (Auto) 0.18 Eos # (Auto) 0.10 Baso # (Auto) 0.03 Immature Gran # (Auto) 0.04 Absolute Nucleated RBC 0.02 Nucleated RBC % (auto) 0.3 Dohle Bodies 1+ Polychromasia 1+ Sodium 136 Potassium 3.6 D Chloride 99 Carbon Dioxide 31 Anion Gap 6 BUN 42 H Creatinine 2.20 H D Est Cr Clr Drug Dosing 21.7 Est GFR ( Amer) 24.4 Est GFR (Non-Af Amer) 21.1 BUN/Creatinine Ratio 19.1 Glucose 106 H POC Glucose 96 Calcium 8.1 L Phosphorus 3.5 D Magnesium 2.2 Procalcitonin Hep B Core IgM Ab Blood Type Antibody Screen Crossmatch PG Care Time/CCT Total # of Minutes Spent Total Time Spent with Patient: Total time spent is greater than 50% in coordination of care (as documented) at patient's floor/unit and/or counseling patient: Coding Level of Care Code 70032 SUB INP/OBS CARE 3/50MIN Diagnoses SONI (acute kidney injury) N17.9 Chronic kidney disease, stage 3 N18.30 Free intraperitoneal air K66.8 Septic shock A41.9; R65.21 Anemia D64.9
[2024-06-24] MEDS: LEVOTHYROXINE SODIUM IV SCH (11:56)
--- NOTE | 2024-06-25 07:20 | Hospitalist Progress Note ---
Date of Service June 25, 2024 Assessment & Plan (1) Perforated gastric ulcer: (2) SONI (acute kidney injury): (3) Septic shock: (4) Hypothyroidism: (5) HTN (hypertension): (6) Hyperlipidemia: (7) Colonic mass: Plan 74-year-old female presented to the ER 06/01 with abdominal pain after undergoing a colonoscopy, during which an area of stricture with ulceration was noted. Patient subsequently developed abdominal pain which gradually worsened and was seen in the ER. CTA/P showed mild abdominal ascites, scattered pneumoperitoneum suspicious for bowel perforation. Chest x-ray showed suspected free air under the right diaphragm. Patient presented to the ER fluid respons samantha but initially hypotensive. Patient was taken for ex lap and admitted by surgery that evening. Ex lap identified a perforated gastric ulcer and Uriel patch of perforated ulcer was performed. Patient was subsequently transferred to the ICU for septic shock due to peritonitis with perforated gastric ulcer. She was transiently hypotensive requiring phenylephrine, and was left intubated following her surgical procedure. She is initially on meropenem, was de- escalated to ertapenem. She underwent hemodialysis 06/22 for hyperkalemia and poor output. She clinically progressed and was extubated. Subsequently downgraded from ICU. Due to her medical complexity she was recommended for transfer to medical service at time of downgrade. Time bedside assessment NGT is in place. Patient is nondistressed. Endorses some postoperative abdominal discomfort improved from prior. Denies new/worsening pain. Denies shortness of breath. Denies chest pain. Abdomen is tender surrounding surgical site, but soft and without rebound/guarding. 2X SINCERE drains are intact left with serosanguineous fluid right with serous fluid. #Sepsis #Perforated gastric ulcer - pt was using diclofenac for long time for back pain - avoid NSAIDs 06/21/2024: S/p ex lap with identified perforated gastric ulcer s/p repair - periotoneal fluid culture (06/21): pseudomonas, BCx (06/22) NGTD Initially on meropenem, narrowed, continue ertapenem Surgery following, unfortunately rpt CT done today (06/25) showed small leak, thus decision made to keep pt NPO Plasma-Lyte converted to D5 LR due to hypoglycemia while n.p.o., #Volume overload - discussed with nephro, due to nutritional deficiency , given improvement in renal fn, no further indication for HD - albumin q6h x24 hrs / Lasix 40mg IV daily - pharmacy consulted for TPN, first dose will be 06/26/24, 4pm #SONI, CKD 3 Baseline creatinine 11.1. Acutely elevated creatinine with poor urine output in the setting of sepsis Hyperkalemic which improved after 1 dialysis session Nephrology following, no further plan for HD with improvement in Cr ARB/spironolactone/NSAIDs held - lasix resumed with albumin #Anemia - s/p PRBC transfusion - rpt Hgb stable #IV infiltration - cont conservative management #Hypertension #Grade II diastolic dysfunction Echo 03/2021: LVEF hyperdynamic. Normal PA/RA pressures. Normal RV size and function. Has history of grade 2 diastolic dysfunction - anti Nebivolol held while n.p.o. - off of pressors, BP much improved, monitor while receiving lasix Right-sided colonic stricture, colonic mass Following with GI as an outpatient, and recent colonoscopy as noted. Cause of pneumoperitoneum was identified as perforated gastric ulcer.Continue outpatient follow-up. Path report showed fragments of colonic mucosa with focal ulceration and reactive changes no diagnostic evidence of malignancy identified from sampled tissue. Hypothyroidism Synthroid converted to IV 2/2 NPO Hyperlipidemia Statin held while n.p.o. Admission and Anticipated Discharge Date Admission Date: June 21, 2024 Subjective No acute events She had CT scan done showing a small leak around the stomach Currently stating she is feeling better though was hoping she could drink some water Review of Systems Review of Systems: Comprehensive ROS completed Physical Exam Physical Exam: Gen: no acute distress HEENT: NC/AT, MMM, NGT in place, right IJ Lungs: CTAB CVS: s1s2 nl , RRR Abd: surgical incision c/d/i, nl BS, soft : + ferreira Ext: + edema, RUE infiltrated IV with small areas of denuded skin Psych: pleasant, cooperative Results & Data Results & Data Vital Signs (Past 12 Hours) Vital Signs Temp Pulse Pulse Resp BP BP Pulse Ox 06/25/24 04:00 36.6 C 82 15 154/87 H 94 06/25/24 04:00 79 11 L 06/25/24 02:09 79 13 06/25/24 00:00 81 17 06/25/24 00:00 79 06/24/24 23:58 70 145/80 H 06/24/24 23:57 36.7 C 15 94 06/24/24 23:55 145/80 H 06/24/24 23:36 84 16 06/24/24 22:09 89 24 06/24/24 20:00 88 21 06/24/24 20:00 06/24/24 20:00 36.6 C 15 96 06/24/24 19:58 154/91 H 06/24/24 19:58 154/91 H 06/24/24 19:57 83 18 96 O2 Del Method O2 Flow Rate 06/25/24 04:00 Nasal Cannula 2 06/25/24 04:00 06/25/24 02:09 06/25/24 00:00 06/25/24 00:00 06/24/24 23:58 06/24/24 23:57 Nasal Cannula 2 06/24/24 23:55 06/24/24 23:36 06/24/24 22:09 06/24/24 20:00 06/24/24 20:00 Nasal Cannula 2 06/24/24 20:00 Nasal Cannula 2 06/24/24 19:58 06/24/24 19:58 06/24/24 19:57 PG Care Time/CCT Total # of Minutes Spent Total Time Spent with Patient: Total time spent is greater than 50% in coordination of care (as documented) at patient's floor/unit and/or counseling patient: Coding Level of Care Code 79637 SUB INP/OBS CARE 3/50MIN Diagnoses Perforated gastric ulcer K25.5 SONI (acute kidney injury) N17.9 Septic shock A41.9; R65.21 Hypothyroidism E03.9 HTN (hypertension) I10 Hyperlipidemia E78.5 Colonic mass K63.89
[2024-06-25 07:47] LABS: Hemoglobin 7.8 g/dl (12.0-16.0); Mean Corpuscular Hemoglobin 29.9 pg (25.0-34.0); Mean Corpuscular Hgb Conc 32.5 g/dL (32.0-36.0); Mean Platelet Volume 9.9 fL (9.4-12.4); Platelet Count 122 K/uL (130-400); RDW Coefficient of Variation 13.3 % (11.5-14.5); RDW Standard Deviation 44.4 fL (36.4-46.3); Red Blood Count 2.61 M/uL (4.20-5.40)
[2024-06-25 08:04] LABS: BUN Creatinine Ratio 26.2 (10-20); Calcium 8.3 mg/dl (8.6-10.3); Creatinine Clr Calc Pharmacy 34.4 ml/min; Est GFR (African American) 41.8 ml/min; Est GFR (Non-African American) 36.1 ml/min; Magnesium 2.3 mg/dl (1.7-2.4); Phosphorus 2.8 mg/dl (2.5-4.9); Potassium 3.6 mmol/L (3.5-5.1)
[2024-06-25 08:05] LABS: Eosinophils % (auto) 2.2 %; Immature Granulocytes # (auto) 0.07 K/uL (0.01-0.20); Immature Granulocytes % (auto) 0.8 %; Lymphocytes # (auto) 0.74 K/uL (1.20-3.40); Monocytes # (auto) 0.34 K/uL (0.11-0.59); Monocytes % (auto) 3.7 %; Neutrophils # (auto) 7.88 K/uL (1.40-6.50); Neutrophils % (auto) 84.8 %; Polychromasia 1+; Target Cells 1+; White Blood Count 9.28 K/ul (4.8-10.8)
--- NOTE | 2024-06-25 08:47 | Surgery Progress Note ---
Date of Service June 25, 2024 Assessment & Plan (1) Perforated gastric ulcer: Plan: CT scan pending; if no leak will remove NG and begin clears pain controlled OOB H/H received PRBC yesterday Admission and Anticipated Discharge Date Admission Date: June 21, 2024 Subjective pain improved JPs serous CT scan this AM Review of Systems Constitutional: no fever and no chills Respiratory: no cough and no dyspnea Cardiovascular: no chest pain Gastrointestinal: + abdominal pain; no nausea, no vomiting and no change in bowel habits Genitourinary: no dysuria Neurologic: + generalized weakness; no localized wea kness Psychiatric: no behavioral changes Physical Exam Constitutional: WD/WN, vitals as above Respiratory: normal respiratory effort, lungs clear to auscultation Cardiovascular: RRR, no murmur, no edema Gastrointestinal (Abdomen): Inspection/Auscultation: abdomen normal to inspection, normal bowel sounds and + abdominal surgical incision; abdomen not distended Percussion/Palpation: + abdomen tender and abdomen soft; no guarding and abdomen not rigid Musculoskeletal: Head/Neck/Chest: normocephalic and head atraumatic Skin: no rashes, warm and dry Results & Data Vital Signs (Past 12 Hours) Vital Signs Temp Pulse Pulse Resp BP BP Pulse Ox 06/25/24 08:26 37.1 C 89 20 162/82 H 95 06/25/24 04:00 36.6 C 82 15 154/87 H 94 06/25/24 04:00 79 11 L 06/25/24 02:09 79 13 06/25/24 00:00 81 17 06/25/24 00:00 79 06/24/24 23:58 70 145/80 H 06/24/24 23:57 36.7 C 15 94 06/24/24 23:55 145/80 H 06/24/24 23:36 84 16 06/24/24 22:09 89 24 O2 Del Method O2 Flow Rate 06/25/24 08:26 Nasal Cannula 2 06/25/24 04:00 Nasal Cannula 2 06/25/24 04:00 06/25/24 02:09 06/25/24 00:00 06/25/24 00:00 06/24/24 23:58 06/24/24 23:57 Nasal Cannula 2 06/24/24 23:55 06/24/24 23:36 06/24/24 22:09
[2024-06-25] MEDS ORDERED: TPN/PPN CONSULT PHARMACY PRN (09:00)
--- NOTE | 2024-06-25 09:19 | CT Scan Report ---
CT OF THE ABDOMEN AND PELVIS WITH ORAL CONTRAST CLINICAL HISTORY: s/p gastric ulcer perforation COMPARISON STUDY: CT of the abdomen and pelvis June 21, 2024. TECHNIQUE: Axial images of the abdomen and pelvis were obtained without IV contrast. Oral contrast wa s administered. Automated exposure control was utilized for the study. A dose lowering technique was utilized adhering to the principles of ALARA. FINDINGS: [id number] bilateral pleural effusions with subpleural opacities are present. Enlarg ed partially calcified mediastinal lymph nodes are incidentally noted. Index subcarinal lymph node me asures 2.6 x 1.7 cm. Several right lower lung nodules are partially obscured but measure up to approx imately 1 cm. There is anasarca. Status post repair of a gastric ulcer. Tip of nasogastric tube is within the gastr ic antrum. There is suspected trace extraluminal contrast along the posterior wall of the gastric ant rum. A small fluid collection along the left hepatic lobe contains a small amount of gas. This collec tion measures 7.2 x 1.7 cm. Abdominal ascites shown on prior CT has markedly improved. There is a sma ll amount of residual ascites. There is no evidence for a bowel obstruction. Abdominal and pelvic stevo gical drains are in place. Unenhanced images of the right adrenal gland, spleen, kidneys and pancreas are unremarkable with exception of left renal atrophy. A low-attenuation 2.6 cm left adrenal nodule favors an adenoma. There are prominent gastrohepatic ligament lymph nodes. These measure up to 1.6 x 0.8 cm. IMPRESSION: 1. Status post repair of a gastric ulcer. Suspected trace extraluminal oral contrast along the mailing jogger ior wall of the gastric antrum. This favors a tiny leak. Small amount of extraluminal gas. Small flui d collection along the left hepatic lobe which measures 7.2 x 1.7 cm. This is likely postsurgical. Mi nimal ascites, significantly improved since preoperative CT. 2. Small to moderate bilateral pleural effusions with associated bibasilar opacities which could refl ect atelectasis or less likely pneumonia. 3. No bowel obstruction. 4. Several right lower lung nodules and mildly enlarged partially calcified thoracic lymph nodes. The findings are indeterminate and a chest CT in 2 months is recommended. 5. Anasarca. ACT 112: Positive. There are findings on this exam that require communication between the performing entity and the patient following Patient Test Result Information Act ([place] Act 112) guidelines. Electronically signed by: Oneil Nixon M.D. 06/25/2024 9:17 AM
--- NOTE | 2024-06-25 10:05 | Surgery Progress Note ---
Date of Service June 25, 2024 Assessment & Plan (1) Status post exploratory laparotomy: Plan: possible small leak will con't NG NPO Admission and Anticipated Discharge Date Admission Date: June 21, 2024 Results & Data Vital Signs (Past 12 Hours) Vital Signs Temp Pulse Pulse Resp BP BP Pulse Ox 06/25/24 08:26 37.1 C 89 20 162/82 H 95 06/25/24 08:00 06/25/24 06:48 73 06/25/24 04:00 36.6 C 82 15 154/87 H 94 06/25/24 04:00 79 11 L 06/25/24 02:09 79 13 06/25/24 00:00 81 17 06/25/24 00:00 79 06/24/24 23:58 70 145/80 H 06/24/24 23:57 36.7 C 15 94 06/24/24 23:55 145/80 H 06/24/24 23:36 84 16 06/24/24 22:09 89 24 O2 Del Method O2 Flow Rate 06/25/24 08:26 Nasal Cannula 2 06/25/24 08:00 Nasal Cannula 2 06/25/24 06:48 06/25/24 04:00 Nasal Cannula 2 06/25/24 04:00 06/25/24 02:09 06/25/24 00:00 06/25/24 00:00 06/24/24 23:58 06/24/24 23:57 Nasal Cannula 2 06/24/24 23:55 06/24/24 23:36 06/24/24 22:09
--- NOTE | 2024-06-25 13:29 | Nephrology Progress Note ---
Date of Service June 25, 2024 Assessment & Plan (1) SONI (acute kidney injury): Plan: * SONI due to septic shock related to perforated gastric ulcer in the setting of chronic NSAID use, ARB and loop diuretic therapy * Non-oliguric * Creatinine trending down * Electrolytes acceptable * Kidneys have recovered sufficiently and dialysis catheter will be removed * Please continue to Document strict I/O's * Parental nutrition is encouraged - I discussed with Dr. Mcghee * Repeat metabolic profile tomorrow AM * Continue to hold diclofenac, furosemide, spironolactone and telmisartan (2) Chronic kidney disease, stage 3: Plan: * CKD stage G3b (moderate impairment). Baseline Cr 1.0-1.1 w/ EGFR 45 cc/min. Rrenal impairment is likely on the basis of microvascular disease. (3) Free intraperitoneal air: Plan: * Repair of perforated gastric ulcer 06/21/24 * CT demonstrates evidence of small persistent leak - remains NPO with NG to suction * Encourage parental nutrition * Remains on Ertapenem (4) Anemia: Plan: * PRBC transfusion support provided yesterday AM * No signs of bleeding reported (no BM, surgical drains with serous drainage) * Monitor H/H and transfuse PRN to maintain Hgb >8 Admission and Anticipated Discharge Date Admission Date: June 21, 2024 Subjective No acute events overnight. No fevers or chills. Gisela remains NPO. She denies significant pain. Abdominal distention persists. She reports several bowel movements. She describes mild generalized tenderness and positional discomfort. No nausea or vomiting. NGT remains to suction. Review of Systems Review of Systems: All systems reviewed & are unremarkable except as noted in HPI & below Physical Exam Constitutional: well developed; no acute distress Eyes: + anicteric sclerae ENMT: Nose: + external nose abnormality (NGT to suction) Mouth: + dry oral mucous membranes Neck: normal visual inspection and trachea midline Respiratory: normal respiratory effort Auscultation: + diminished lung sounds Cardiovascular: Rate/Rhythm: regular rate Heart Sounds: normal S1 and normal S2 Extremities: + edema (third spacing fluid notably in hands, forearms, and legs) Gastrointestinal (Abdomen): Inspection/Auscultation: + abdomen distended, + abdominal surgical incision (with dressing cdi), + abdominal surgical drain present (SINCERE with serous drainage) and + hypoactive bowel sounds Percussion/Palpation: + abdomen tender; no guarding and abdomen not rigid Musculoskeletal: Extremities: no cyanosis and no clubbing Skin: normal turgor; no jaundice Neurologic: Motor/Sensory: no tremor and no asterixis Psychiatric: Orientation: alert and oriented x 3 Results & Data Vital Signs (Past 12 Hours) Vital Signs Temp Pulse Pulse Resp BP Pulse Ox O2 Del Method 06/25/24 10:38 37.3 C 82 20 148/79 H 91 Nasal Cannula 06/25/24 08:26 37.1 C 89 20 162/82 H 95 Nasal Cannula 06/25/24 08:00 Nasal Cannula 06/25/24 06:48 73 06/25/24 04:00 36.6 C 82 15 154/87 H 94 Nasal Cannula 06/25/24 04:00 79 11 L 06/25/24 02:09 79 13 O2 Flow Rate 06/25/24 10:38 1 06/25/24 08:26 2 06/25/24 08:00 2 06/25/24 06:48 06/25/24 04:00 2 06/25/24 04:00 06/25/24 02:09 Laboratory Results Laboratory Results - last 24 hr 06/21/24 06/25/24 19:06 07:32 WBC 9.28 RBC 2.61 L Hgb 7.8 L Hct 24.0 L MCV 92.0 MCH 29.9 MCHC 32.5 RDW Std Deviation 44.4 RDW Coeff of Rafael 13.3 Plt Count 122 L MPV 9.9 Immature Gran % (Auto) 0.8 Neut % (Auto) 84.8 Lymph % (Auto) 8.0 [place] % (Auto) 3.7 Eos % (Auto) 2.2 Neut # (Auto) 7.88 H Lymph # (Auto) 0.74 L [place] # (Auto) 0.34 Eos # (Auto) 0.20 Immature Gran # (Auto) 0.07 Polychromasia 1+ Target Cells 1+ Sodium 137 Potassium 3.6 Chloride 101 Carbon Dioxide 33 H Anion Gap 3 BUN 37 H Creatinine 1.41 H D Est Cr Clr Drug Dosing 34.4 Est GFR ( Amer) 41.8 Est GFR (Non-Af Amer) 36.1 BUN/Creatinine Ratio 26.2 H Glucose 93 Calcium 8.3 L Phosphorus 2.8 Magnesium 2.3 Crossmatch See Detail Diagnostic Findings CT OF THE ABDOMEN AND PELVIS WITH ORAL CONTRAST COMPARISON STUDY: CT of the abdomen and pelvis June 21, 2024. FINDINGS: [id number] bilateral pleural effusions with subpleural opacities are present. Enlarged partially calcified mediastinal lymph nodes are incidentally noted. Index subcarinal lymph node measures 2.6 x 1.7 cm. Several right lower lung nodules are partially obscured but measure up to approximately 1 cm. There is anasarca. Status post repair of a gastric ulcer. Tip of nasogastric tube is within the gastric antrum. There is suspected trace extraluminal contrast along the posterior wall of the gastric antrum. A small fluid collection along the left hepatic lobe contains a small amount of gas. This collection measures 7.2 x 1.7 cm. Abdominal ascites shown on prior CT has markedly improved. There is a small amount of residual ascites. There is no evidence for a bowel obstruction. Abdominal and pelvic surgical drains are in place. Unenhanced images of the right adrenal gland, spleen, kidneys and pancrea s are unremarkable with exception of left renal atrophy. A low-attenuation 2.6 cm left adrenal nodule favors an adenoma. There are prominent gastrohepatic ligament lymph nodes. These measure up to 1.6 x 0.8 cm. IMPRESSION: 1. Status post repair of a gastric ulcer. Suspected trace extraluminal oral contrast along the posterior wall of the gastric antrum. This favors a tiny leak. Small amount of extraluminal gas. Small fluid collection along the left hepatic lobe which measures 7.2 x 1.7 cm. This is likely postsurgical. Minimal ascites, significantly improved since preoperative CT. 2. Small to moderate bilateral pleural effusions with associated bibasilar opacities which could reflect atelectasis or less likely pneumonia. 3. No bowel obstruction. 4. Several right lower lung nodules and mildly enlarged partially calcified thoracic lymph nodes. The findings are indeterminate and a chest CT in 2 months is recommended. 5. Anasarca. PG Care Time/CCT Total # of Minutes Spent Total Time Spent with Patient: Total time spent is greater than 50% in coordination of care (as documented) at patient's floor/unit and/or counseling patient: Coding Level of Care Code 08708 SUB INP/OBS CARE 3/50MIN Diagnoses SONI (acute kidney injury) N17.9 Chronic kidney disease, stage 3 N18.30 Free intraperitoneal air K66.8 Anemia D64.9
[2024-06-25] MEDS: FUROSEMIDE 40 MG/4 ML VIAL IV SCH (15:07)
[2024-06-25] MEDS: ALBUMIN 25% 25 GM/100 ML VIAL IV SCH (15:07)
[2024-06-25] MEDS ORDERED: TPN/PPN CONSULT PHARMACY STA (15:14)
[2024-06-25] MEDS: ACETAMINOPHEN 1,000 MG/100 ML VIAL IV STA (23:51)
--- NOTE | 2024-06-26 01:46 | Communication Note ---
Date of Service: June 26, 2024 Assess patient at bedside. Patient is having elevated blood pressure of 183/90 as well as being fluid overloaded as well as pain. Is having some weak congested cough as well as some bilateral diminished breath sounds at the base of her lungs. Patient normally takes Lasix at home. No history of congestive heart failure though patient is fluid overloaded on exam. She does have fluids running at this time. Does have a resolving SONI. Will hold fluids overnight. Hold off on extra dose of Lasix at this time given kidney function. May need a echocardiogram as she has not had one in some time to confirm CHF. Will defer to be to day team.
[2024-06-26] MEDS: HYDROmorphone INJ 0.5 MG/0.5 ML SYR IV STA ×2 (01:52→06:05)
[2024-06-26] MEDS: ALBUT/IPRATROP 3MG/0.5MG NEB 3 ML VIAL NEB STA (06:17)
[2024-06-26 06:19] LABS: Hematocrit (blood only) 22.7 % (37.0-47.0); Hemoglobin 7.4 g/dl (12.0-16.0); Mean Corpuscular Hemoglobin 30.2 pg (25.0-34.0); Mean Corpuscular Hgb Conc 32.6 g/dL (32.0-36.0); Mean Corpuscular Volume 92.7 fL (80.0-100.0); Mean Platelet Volume 10.1 fL (9.4-12.4); Nucleated RBC # (auto) 0.02 K/uL (0.00-0.12); Nucleated RBC % (auto) 0.2 %; Platelet Count 106 K/uL (130-400); RDW Coefficient of Variation 13.5 % (11.5-14.5); RDW Standard Deviation 45.9 fL (36.4-46.3); Red Blood Count 2.45 M/uL (4.20-5.40); White Blood Count 9.92 K/ul (4.8-10.8)
[2024-06-26 06:39] LABS: BUN Creatinine Ratio 27.1 (10-20); Bilirubin,Total 0.9 mg/dl (0.2-1.0); Calcium 8.6 mg/dl (8.6-10.3); Creatinine Clr Calc Pharmacy 45.3 ml/min; Est GFR (African American) 58.4 ml/min; Est GFR (Non-African American) 50.4 ml/min; Magnesium 2.1 mg/dl (1.7-2.4); Phosphorus 2.3 mg/dl (2.5-4.9); Potassium 3.4 mmol/L (3.5-5.1)
[2024-06-26 06:43] LABS: Basophils # (auto) 0.03 K/uL (0.00-0.20); Basophils % (auto) 0.3 %; Eosinophils # (auto) 0.09 K/uL (0.00-0.50); Eosinophils % (auto) 0.9 %; Immature Granulocytes # (auto) 0.13 K/uL (0.01-0.20); Immature Granulocytes % (auto) 1.3 %; Lymphocytes # (auto) 0.72 K/uL (1.20-3.40); Lymphocytes % (auto) 7.3 %; Monocytes # (auto) 0.39 K/uL (0.11-0.59); Monocytes % (auto) 3.9 %; Neutrophils # (auto) 8.56 K/uL (1.40-6.50); Neutrophils % (auto) 86.3 %; Polychromasia 1+
[2024-06-26] MEDS ORDERED: POTASSIUM PHOS 3 MMOL/1 ML INFUSION IV STA (07:49)
--- NOTE | 2024-06-26 09:39 | XRay Report ---
XR chest 2V PA/lateral HISTORY: hypoxia COMPARISON: Abdomen and pelvis CT 06/25/2024. FINDINGS: No pneumothorax. Small to moderate bilateral pleural effusions and bibasilar densities pers ist. The heart is mildly enlarged. There is mild central pulmonary vascular congestion without overt edema. Nasogastric tube terminates in the stomach. There is a surgical drain within the upper abdomen . IMPRESSION: 1. Small to moderate bilateral pleural effusions and bibasilar densities are again noted. 2. Cardiomegaly and mild congestive change. 3. Nasogastric tube terminates in the stomach. ACT 112: Negative or not required by law. Electronically signed by: Memo Lozada M.D. 06/26/2024 9:38 AM
[2024-06-26] MEDS: POTASSIUM PHOSPHATE 15 MMOL in SODIUM CHLORIDE 0.9% 250 ML IV ONE (09:46)
[2024-06-26] MEDS: ONDANSETRON INJ 2 MG/ML 2 ML VIAL IV PRN (11:33)
--- NOTE | 2024-06-26 11:57 | Surgery Progress Note ---
Date of Service June 26, 2024 Assessment & Plan (1) Status post exploratory laparotomy: Plan: possible small leak will con't NG NPO Admission and Anticipated Discharge Date Admission Date: June 21, 2024 Subjective No acute events She had CT scan done showing a small leak around the stomach Currently stating she is feeling better though was hoping she could drink some water Physical Exam Gastrointestinal (Abdomen): Inspection/Auscultation: + abdominal surgical incision and + abdominal surgical drain present (Gastric drain SS output, pelvic drain SS output) Percussion/Palpation: + abdomen tender and abdomen soft Results & Data Vital Signs (Past 12 Hours) Vital Signs Temp Pulse Pulse Resp BP Pulse Ox O2 Del Method 06/26/24 10:38 37.2 C 108 H 19 181/85 H 92 Nasal Cannula 06/26/24 07:43 101 H 06/26/24 07:13 36.8 C 106 H 20 189/101 H 92 Nasal Cannula 06/26/24 06:18 18 93 Nasal Cannula 06/26/24 03:54 96 H 20 179/79 H 92 Nasal Cannula 06/26/24 03:38 36.7 C 95 H 18 178/83 H 92 Room Air 06/26/24 02:36 36.9 C 93 H 24 176/92 H 93 Nasal Cannula 06/26/24 01:12 37.2 C 99 H 24 183/90 H 92 Nasal Cannula O2 Flow Rate 06/26/24 10:38 2 06/26/24 07:43 06/26/24 07:13 2 06/26/24 06:18 2 06/26/24 03:54 2 06/26/24 03:38 06/26/24 02:36 2 06/26/24 01:12 1 Laboratory Results 06/26/24 06/26/24 06/26/24 Range/Units 11:29 06:09 05:42 WBC 9.92 (4.8-10.8) K/ul RBC 2.45 L (4.20-5.40) M/uL Hgb 7.4 L (12.0-16.0) g/dl Hct 22.7 L (37.0-47.0) % MCV 92.7 (80.0-100.0) fL MCH 30.2 (25.0-34.0) pg MCHC 32.6 (32.0-36.0) g/dL RDW Std Deviation 45.9 (36.4-46.3) fL RDW Coeff of Rafael 13.5 (11.5-14.5) % Plt Count 106 L (130-400) K/uL MPV 10.1 (9.4-12.4) fL Immature Gran % (Auto) 1.3 % Neut % (Auto) 86.3 % Lymph % (Auto) 7.3 % [place] % (Auto) 3.9 % Eos % (Auto) 0.9 % Baso % (Auto) 0.3 % Neut # (Auto) 8.56 H (1.40-6.50) K/uL Lymph # (Auto) 0.72 L (1.20-3.40) K/uL [place] # (Auto) 0.39 (0.11-0.59) K/uL Eos # (Auto) 0.09 (0.00-0.50) K/uL Baso # (Auto) 0.03 (0.00-0.20) K/uL Immature Gran # (Auto) 0.13 (0.01-0.20) K/uL Absolute Nucleated RBC 0.02 (0.00-0.12) K/uL Nucleated RBC % (auto) 0.2 % Polychromasia 1+ Sodium 140 (136-145) mmol/L Potassium 3.4 L (3.5-5.1) mmol/L Chloride 103 (98-107) mmol/L Carbon Dioxide 32 (21-32) mmol/L Anion Gap 5 (3-11) BUN 29 H (6-23) mg/dl Creatinine 1.07 D (0.6-1.2) mg/dl Est Cr Clr Drug Dosing 45.3 ml/min Est GFR ( Amer) 58.4 ml/min Est GFR (Non-Af Amer) 50.4 ml/min BUN/Creatinine Ratio 27.1 H (10-20) Glucose 88 (70-99(Fasting)) mg/dl POC Glucose 99 93 (70-99) mg/dl Calcium 8.6 (8.6-10.3) mg/dl Phosphorus 2.3 L (2.5-4.9) mg/dl Magnesium 2.1 (1.7-2.4) mg/dl Total Bilirubin 0.9 (0.2-1.0) mg/dl AST 33 (13-39) U/L Alkaline Phosphatase 103 (34-104) U/L Albumin 3.0 L (3.4-5.0) gm/dl Triglycerides 166 H (0-150) mg/dl 06/26/24 06/25/24 Range/Units 00:09 15:14 WBC (4.8-10.8) K/ul RBC (4.20-5.40) M/uL Hgb (12.0-16.0) g/dl Hct (37.0-47.0) % MCV (80.0-100.0) fL MCH (25.0-34.0) pg MCHC (32.0-36.0) g/dL RDW Std Deviation (36.4-46.3) fL RDW Coeff of Rafael (11.5-14.5) % Plt Count (130-400) K/uL MPV (9.4-12.4) fL Immature Gran % (Auto) % Neut % (Auto) % Lymph % (Auto) % [place] % (Auto) % Eos % (Auto) % Baso % (Auto) % Neut # (Auto) (1.40-6.50) K/uL Lymph # (Auto) (1.20-3.40) K/uL [place] # (Auto) (0.11-0.59) K/uL Eos # (Auto) (0.00-0.50) K/uL Baso # (Auto) (0.00-0.20) K/uL Immature Gran # (Auto) (0.01-0.20) K/uL Absolute Nucleated RBC (0.00-0.12) K/uL Nucleated RBC % (auto) % Polychromasia Sodium (136-145) mmol/L Potassium (3.5-5.1) mmol/L Chloride (98-107) mmol/L Carbon Dioxide (21-32) mmol/L Anion Gap (3-11) BUN (6-23) mg/dl Creatinine (0.6-1.2) mg/dl Est Cr Clr Drug Dosing ml/min Est GFR ( Amer) ml/min Est GFR (Non-Af Amer) ml/min BUN/Creatinine Ratio (10-20) Glucose (70-99(Fasting)) mg/dl POC Glucose 97 96 (70-99) mg/dl Calcium (8.6-10.3) mg/dl Phosphorus (2.5-4.9) mg/dl Magnesium (1.7-2.4) mg/dl Total Bilirubin (0.2-1.0) mg/dl AST (13-39) U/L Alkaline Phosphatase (34-104) U/L Albumin (3.4-5.0) gm/dl Triglycerides (0-150) mg/dl
[2024-06-26] MEDS ORDERED: HYDROmorphone INJ 0.5 MG/0.5 ML SYR IV PRN (11:58)
[2024-06-26] MEDS: ERTAPENEM SODIUM 1,000 MG in SYRINGE 0 ML IV SCH (12:02)
[2024-06-26] MEDS: HYDROmorphone INJ 0.5 MG/0.5 ML SYR IV PRN (12:48)
--- NOTE | 2024-06-26 13:31 | Hospitalist Progress Note ---
Date of Service June 26, 2024 Assessment & Plan (1) Perforated gastric ulcer: (2) SONI (acute kidney injury): (3) Septic shock: (4) Hypothyroidism: (5) HTN (hypertension): (6) Hyperlipidemia: (7) Colonic mass: Plan 74-year-old female presented to the ER 06/01 with abdominal pain after undergoing a colonoscopy, during which an area of stricture with ulceration was noted. Patient subsequently developed abdominal pain which gradually worsened and was seen in the ER. CTA/P showed mild abdominal ascites, scattered pneumoperitoneum suspicious for bowel perforation. Chest x-ray showed suspected free air under the right diaphragm. Patient presented to the ER fluid respons samantha but initially hypotensive. Patient was taken for ex lap and admitted by surgery that evening. Ex lap identified a perforated gastric ulcer and Uriel patch of perforated ulcer was performed. Patient was subsequently transferred to the ICU for septic shock due to peritonitis with perforated gastric ulcer. She was transiently hypotensive requiring phenylephrine, and was left intubated following her surgical procedure. She is initially on meropenem, was de- escalated to ertapenem. She underwent hemodialysis 06/22 for hyperkalemia and poor output. She clinically progressed and was extubated. Subsequently downgraded from ICU. Due to her medical complexity she was recommended for transfer to medical service at time of downgrade. Time bedside assessment NGT is in place. Patient is nondistressed. Endorses some postoperative abdominal discomfort improved from prior. Denies new/worsening pain. Denies shortness of breath. Denies chest pain. Abdomen is tender surrounding surgical site, but soft and without rebound/guarding. 2X SINCERE drains are intact left with serosanguineous fluid right with serous fluid. #Sepsis #Perforated gastric ulcer - pt was using diclofenac for long time for back pain - avoid NSAIDs 06/21/2024: S/p ex lap with identified perforated gastric ulcer s/p repair - periotoneal fluid culture (06/21): pseudomonas, BCx (06/22) NGTD Initially on meropenem, narrowed, continue ertapenem Surgery following, unfortunately rpt CT done today (06/25) showed small leak, thus decision made to keep pt NPO Plasma-Lyte converted to D5 LR due to hypoglycemia while n.p.o., -ordered PPN on 06/26, willl get central line for TPN on 06/27 #Volume overload - discussed with nephro, due to nutritional deficiency , given improvement in renal fn, no further indication for HD - albumin q6h x24 hrs / Lasix 40mg IV daily - pharmacy consulted for TPN, first dose will be 06/26/24, 4pm -increased lasix to BID on 06/26 #SONI, CKD 3 Baseline creatinine 11.1. Acutely elevated creatinine with poor urine output in the setting of sepsis Hyperkalemic which improved after 1 dialysis session Nephrology following, no further plan for HD with improvement in Cr ARB/spironolactone/NSAIDs held - lasix resumed with albumin - SONI appears to have improved. #Anemia - s/p PRBC transfusion - rpt Hgb stable #IV infiltration - cont conservative management #Hypertension #Grade II diastolic dysfunction Echo 03/2021: LVEF hyperdynamic. Normal PA/RA pressures. Normal RV size and function. Has history of grade 2 diastolic dysfunction - anti Nebivolol held while n.p.o. - off of pressors, BP much improved, monitor while receiving lasix Right-sided colonic stricture, colonic mass Following with GI as an outpatient, and recent colonoscopy as noted. Cause of pneumoperitoneum was identified as perforated gastric ulcer.Continue outpatient follow-up. Path report showed fragments of colonic mucosa with focal ulceration and reactive changes no diagnostic evidence of malignancy identified from sampled tissue. Hypothyroidism Synthroid converted to IV / NPO Hyperlipidemia Statin held while n.p.o. Admission and Anticipated Discharge Date Admission Date: June 21, 2024 Subjective 74 yo female reports no new symptoms. She continues to feel fatigued. Review of Systems Review of Systems: All systems reviewed & are unremarkable except as noted in HPI & below Physical Exam Physical Exam: Gen: no acute distress HEENT: NC/AT, MMM, NGT in place, right IJ Lungs: CTAB CVS: s1s2 nl , RRR Abd: surgical incision c/d/i, nl BS, soft : + ferreira Ext: + edema, RUE infiltrated IV with small areas of denuded skin Psych: pleasant, cooperative Results & Data Results & Data Vital Signs (Past 12 Hours) Vital Signs Temp Pulse Pulse Resp BP Pulse Ox O2 Del Method 06/26/24 10:38 37.2 C 108 H 19 181/85 H 92 Nasal Cannula 06/26/24 07:43 101 H 06/26/24 07:13 36.8 C 106 H 20 189/101 H 92 Nasal Cannula 06/26/24 06:18 18 93 Nasal Cannula 06/26/24 03:54 96 H 20 179/79 H 92 Nasal Cannula 06/26/24 03:38 36.7 C 95 H 18 178/83 H 92 Room Air 06/26/24 02:36 36.9 C 93 H 24 176/92 H 93 Nasal Cannula O2 Flow Rate 06/26/24 10:38 2 06/26/24 07:43 06/26/24 07:13 2 06/26/24 06:18 2 06/26/24 03:54 2 06/26/24 03:38 06/26/24 02:36 2 PG Care Time/CCT Total # of Minutes Spent Total Time Spent with Patient: Total time spent is greater than 50% in coordination of care (as documented) at patient's floor/unit and/or counseling patient: Coding Level of Care Code 52787 SUB INP/OBS CARE 235MIN Diagnoses Perforated gastric ulcer K25.5 SONI (acute kidney injury) N17.9 Septic shock A41.9; R65.21 Hypothyroidism E03.9 HTN (hypertension) I10 Hyperlipidemia E78.5 Colonic mass K63.89
--- NOTE | 2024-06-26 13:48 | Nephrology Progress Note ---
Date of Service June 26, 2024 Assessment & Plan (1) SONI (acute kidney injury): Plan: * SONI due to septic shock related to perforated gastric ulcer in the setting of chronic NSAID use, ARB and loop diuretic therapy * Gisela received a single treatment of HD in the ICU for hyperkalemia. HD catheter has now been removed. * Kidneys have recovered. Creatinine normalized. * Parental nutrition is encouraged. * Diuretics held. No indication to restart at this time. * Telmisartan held. Continue to hold for now. * I discussed the plan of care with Dr. Montenegro this AM. * I have no objections to PICC placement. (2) Chronic kidney disease, stage 3: Plan: * CKD stage G3b (moderate impairment). Baseline Cr 1.0-1.1 w/ EGFR 45 cc/min. Renal impairment is likely on the basis of microvascular disease. (3) Free intraperitoneal air: Plan: * Repair of perforated gastric ulcer 06/21/24 * CT demonstrates evidence of small persistent leak - remains NPO with NG to suction * Encourage parental nutrition * Remains on Ertapenem (4) Anemia: Plan: * PRBC transfusion support provided 06/24. * No signs of bleeding reported (no BM, surgical drains with serous drainage) * Monitor H/H and transfuse PRN to maintain Hgb >8 Admission and Anticipated Discharge Date Admission Date: June 21, 2024 Subjective No acute events overnight. Gisela reports persistent abdominal distention and some nausea. She also has been experiencing a dry cough and irritation from the NGT. Her sinuses feel congested. No fevers or chills. Edema is improving. Review of Systems Review of Systems: All systems reviewed & are unremarkable except as noted in HPI & below Physical Exam Constitutional: well developed; no acute distress Eyes: + anicteric sclerae ENMT: Nose: + external nose abnormality (NGT to suction) Mouth: + dry oral mucous membranes Neck: normal visual inspection and trachea midline Respiratory: normal respiratory effort Auscultation: + diminished lung sounds Cardiovascular: Rate/Rhythm: regular rate Heart Sounds: normal S1 and normal S2 Extremities: + edema (third spacing fluid notably in hands, forearms, and legs) Musculoskeletal: Extremities: no cyanosis and no clubbing Skin: normal turgor; no jaundice Neurologic: Motor/Sensory: no tremor and no asterixis Psychiatric: Orientation: alert and oriented x 3 Results & Data Vital Signs (Past 12 Hours) Vital Signs Temp Pulse Pulse Resp BP Pulse Ox O2 Del Method 06/26/24 10:38 37.2 C 108 H 19 181/85 H 92 Nasal Cannula 06/26/24 07:43 101 H 06/26/24 07:13 36.8 C 106 H 20 189/101 H 92 Nasal Cannula 06/26/24 06:18 18 93 Nasal Cannula 06/26/24 03:54 96 H 20 179/79 H 92 Nasal Cannula 06/26/24 03:38 36.7 C 95 H 18 178/83 H 92 Room Air 06/26/24 02:36 36.9 C 93 H 24 176/92 H 93 Nasal Cannula O2 Flow Rate 06/26/24 10:38 2 06/26/24 07:43 06/26/24 07:13 2 06/26/24 06:18 2 06/26/24 03:54 2 06/26/24 03:38 06/26/24 02:36 2 Laboratory Results Laboratory Results - last 24 hr 06/25/24 06/26/24 06/26/24 15:14 00:09 05:42 WBC 9.92 RBC 2.45 L Hgb 7.4 L Hct 22.7 L MCV 92.7 MCH 30.2 MCHC 32.6 RDW Std Deviation 45.9 RDW Coeff of Rafael 13.5 Plt Count 106 L MPV 10.1 Immature Gran % (Auto) 1.3 Neut % (Auto) 86.3 Lymph % (Auto) 7.3 [place] % (Auto) 3.9 Eos % (Auto) 0.9 Baso % (Auto) 0.3 Neut # (Auto) 8.56 H Lymph # (Auto) 0.72 L [place] # (Auto) 0.39 Eos # (Auto) 0.09 Baso # (Auto) 0.03 Immature Gran # (Auto) 0.13 Absolute Nucleated RBC 0.02 Nucleated RBC % (auto) 0.2 Polychromasia 1+ Sodium 140 Potassium 3.4 L Chloride 103 Carbon Dioxide 32 Anion Gap 5 BUN 29 H Creatinine 1.07 D Est Cr Clr Drug Dosing 45.3 Est GFR ( Amer) 58.4 Est GFR (Non-Af Amer) 50.4 BUN/Creatinine Ratio 27.1 H Glucose 88 POC Glucose 96 97 Calcium 8.6 Phosphorus 2.3 L Magnesium 2.1 Total Bilirubin 0.9 AST 33 Alkaline Phosphatase 103 Albumin 3.0 L Triglycerides 166 H 06/26/24 06/26/24 06:09 11:29 WBC RBC Hgb Hct MCV MCH MCHC RDW Std Deviation RDW Coeff of Rafael Plt Count MPV Immature Gran % (Auto) Neut % (Auto) Lymph % (Auto) [place] % (Auto) Eos % (Auto) Baso % (Auto) Neut # (Auto) Lymph # (Auto) [place] # (Auto) Eos # (Auto) Baso # (Auto) Immature Gran # (Auto) Absolute Nucleated RBC Nucleated RBC % (auto) Polychromasia Sodium Potassium Chloride Carbon Dioxide Anion Gap BUN Creatinine Est Cr Clr Drug Dosing Est GFR ( Amer) Est GFR (Non-Af Amer) BUN/Creatinine Ratio Glucose POC Glucose 93 99 Calcium Phosphorus Magnesium Total Bilirubin AST Alkaline Phosphatase Albumin Triglycerides PG Care Time/CCT Total # of Minutes Spent Total Time Spent with Patient: Total time spent is greater than 50% in coordination of care (as documented) at patient's floor/unit and/or counseling patient: Coding Level of Care Code 70096 SUB INP/OBS CARE 3/50MIN Diagnoses SONI (acute kidney injury) N17.9 Chronic kidney disease, stage 3 N18.30 Free intraperitoneal air K66.8 Anemia D64.9
[2024-06-26] MEDS: POTASSIUM CHLORIDE / WTR 10 MEQ/100 ML PLCT IV ONE (14:42)
--- NOTE | 2024-06-26 15:30 | Pharmacy Report ---
Pharmacy Initial PN Consult Nt - Date of Service June 26, 2024 - Scope Pharmacy has been consulted on this date to manage parenteral nutrition orders and order appropriate labs. As part of the Nutrition Support Team Guidelines, pharmacy will work in conjunction with dietary when determining the patients caloric needs. - Subjective * The patient is a 74 year old Female admitted on 06/21/24 for PERF ULCER. * Patient is to receive parenteral nutrition for gastric ulcer with perforation s/p exploratory laparotomy with wash out, malnutrition and remains NPO. * Nephrology recommended initiation of parenteral nutrition to assist in volume overload/third spacing in the setting of malnutrition. * Hospitalist requested max volume ~1500 mL/day for day 1 - can re-evaluate daily * Pertinent PMHx: CKD (patient did require HD earlier this admission) - Objective Vascular Access: * Patient currently has a peripheral line. * Peripheral line was confirmed by IV Team to be acceptable for PPN use on this date. Height & Weight (Last Documented) Height 5 ft 1 in Weight 88.6 kg Diet Order(s) 06/21/24 18:48 NPO Intake & Ouput (24hrs) 06/25/24 06/26/24 06/27/24 06:59 06:59 06:59 Intake Total 2474 / 2474 1262.667 / 3069.212 0780 / 1355 Output Total 1031 / 1031 3089 / 3089 2103 / 2103 Balance 1443 / 1443 -1826.333 / -1826.333 -748 / -748 Selected Laboratory Results 06/26/24 05:42 Sodium 140 Potassium 3.4 L Chloride 103 Carbon Dioxide 32 Anion Gap 5 BUN 29 H Creatinine 1.07 D Est GFR ( Amer) 58.4 Est GFR (Non-Af Amer) 50.4 BUN/Creatinine Ratio 27.1 H Glucose 88 Calcium 8.6 Phosphorus 2.3 L Magnesium 2.1 Total Bilirubin 0.9 AST 33 Alkaline Phosphatase [address] - Initial Nutrition Assessment Start: 06/22/24 10:52 Freq: Status: Active Protocol: Document 06/22/24 10:52 WN (Rec: 06/22/24 11:04 WN [id number]) - Assessment & Plan Assessment: * Appreciate dietitians recommendations for macronutrients. Plan: * For Day #1 of PPN administration, the following will be ordered: * Macronutrients: * Amino Acids: 61 grams/day * Dextrose: 72 grams/day * Lipids: 50 grams/day * Micronutrients: * Sodium chloride: 100 mEq/day * Sodium acetate: 20 mEq/day * Potassium phosphate: 21 mMol/day * Potassium acetate: 40 mEq/day * Magnesium sulfate: 8.12 mEq/day * Multivitamins: 10 mL/day * Trace elements: 1 mL/day * Thiamine: 100 mg/day * Folic Acid: 1 mg/day * Total volume of 1531.2 mL will be infused over 24 hours and will provide 989 kcal/day * Patient is on PPN which has a maximum mOsm/L of 900. Final osmolarity of current solution is 884.73 mOsm/L. * Labs will be ordered per PN protocol. * Pharmacy will follow and adjust PN orders on a daily basis. Thank you!
[2024-06-26] MEDS ORDERED: DEXTROSE 10% 1,000 ML IV PRN (16:00)
[2024-06-26] MEDS: PERIPHERAL TPN IV SCH (16:38)
[2024-06-26] MEDS: CLINOLIPID 20% IV FAT EMULSION 250 ML IV SCH (16:38)
[2024-06-26] MEDS: [UNRECOGNIZED DRUG - OTHER] IV SCH (16:38)
[2024-06-26] MEDS: LABETALOL HCL IV 5 MG/ML 20ML IV STA (18:42)
[2024-06-26] MEDS: FUROSEMIDE 40 MG/4 ML VIAL IV SCH (21:06)
[2024-06-26] MEDS: STOP CLINOLIPID SCH (22:03)
[2024-06-27] MEDS: ALBUT/IPRATROP 3MG/0.5MG NEB 3 ML VIAL NEB PRN (04:34)
--- NOTE | 2024-06-27 08:07 | Surgery Progress Note ---
Date of Service June 27, 2024 Assessment & Plan (1) Status post exploratory laparotomy: Plan: pt having BMs expected post operative pain , tolerated with medication VSS with HTN CT of abd/pelvis 06/25 with oral constrast via NGT reading possible small leak continue npo and ngt Will review imaging with Dr. Rizzo PT /OT eval ordered today OOB to chair as tolerated Incentive spirometer Q1h while awake Admission and Anticipated Discharge Date Admission Date: June 21, 2024 Supervising Physician Co-Signing Physician Notes Patient seen and examined, labs and imaging for the weekend reviewed, agree with above. Status post laparotomy with Uriel patch repair of perforated gastric ulcer secondary to NSAID use. CT scan on Wednesday revealed a questionable small leak at the repair site, NG tube has remained in and the drains are still in place. On exam she is afebrile stable vitals, NG tube with moderate output, pelvic ANANTH serosanguineous, gastric ANANTH serosanguineous possibly bilious. Incision with roberto, no infection or hernia. Abdomen soft, probably tender to palpation, nondistended. CT scan from Wednesday personally viewed and interpreted agree with the assessment of an area that could represent a small leak. WBC 15 which is up from being normal for several days. This time we will continue the NG tube. A PICC line has been placed and she is on TPN now. Continue antibiotics. Likely repeat an upper GI or CT scan with oral contrast sometime later this week. Subjective pt reports abd discomfort tolerated with meds no n/v +bms Review of Systems Respiratory: + dyspnea Cardiovascular: no chest pain Gastrointestinal: + abdominal pain and + bloating; no naus ea and no vomiting Physical Exam Constitutional: cooperative and comfortable; no acute distress Respiratory: normal respiratory effort and able to speak in complete sentences; no respiratory distress o2 via NC @ 3L/min Gastrointestinal (Abdomen): Inspection/Auscultation: + abdominal surgical incision (roberto CDI no s/s infection ) and + abdominal surgical drain present (ananth) Percussion/Palpation: + abdomen tender and abdomen soft Results & Data Vital Signs (Past 12 Hours) Vital Signs Temp Pulse Resp BP Pulse Ox O2 Del Method O2 Flow Rate 06/27/24 07:19 98.2 F 99 H 20 177/100 H 92 Nasal Cannula 3 06/27/24 04:52 99.0 F 98 H 18 180/93 H 92 Nasal Cannula 2.0 06/27/24 04:35 93 H 18 96 Nasal Cannula 2 06/26/24 23:18 99.1 F 97 H 18 171/90 H 92 Nasal Cannula 2.0 PG Care Time/CCT Total # of Minutes Spent Total Time Spent with Patient: Total time spent is greater than 50% in coordination of care (as documented) at patient's floor/unit and/or counseling patient: Coding Level of Care Code 15498 Post Operative Follow-Up Diagnoses Status post exploratory laparotomy Z98.890
[2024-06-27 08:31] LABS: Hematocrit (blood only) 23.8 % (37.0-47.0); Mean Corpuscular Hemoglobin 30.3 pg (25.0-34.0); Mean Corpuscular Hgb Conc 33.6 g/dL (32.0-36.0); Mean Corpuscular Volume 90.2 fL (80.0-100.0); Mean Platelet Volume 10.6 fL (9.4-12.4); Nucleated RBC # (auto) 0.02 K/uL (0.00-0.12); Nucleated RBC % (auto) 0.1 %; Platelet Count 146 K/uL (130-400); RDW Coefficient of Variation 13.5 % (11.5-14.5); RDW Standard Deviation 44.2 fL (36.4-46.3); Red Blood Count 2.64 M/uL (4.20-5.40); White Blood Count 15.63 K/ul (4.8-10.8)
--- NOTE | 2024-06-27 08:41 | Hospitalist Progress Note ---
Date of Service June 27, 2024 Assessment & Plan (1) Perforated gastric ulcer: (2) SONI (acute kidney injury): (3) Septic shock: (4) Hypothyroidism: (5) HTN (hypertension): (6) Hyperlipidemia: (7) Colonic mass: Plan 74-year-old female presented to the ER 06/01 with abdominal pain after undergoing a colonoscopy, during which an area of stricture with ulceration was noted. Patient subsequently developed abdominal pain which gradually worsened and was seen in the ER. CTA/P showed mild abdominal ascites, scattered pneumoperitoneum suspicious for bowel perforation. Chest x-ray showed suspected free air under the right diaphragm. Patient presented to the ER fluid respons samantha but initially hypotensive. Patient was taken for ex lap and admitted by surgery that evening. Ex lap identified a perforated gastric ulcer and Uriel patch of perforated ulcer was performed. Patient was subsequently transferred to the ICU for septic shock due to peritonitis with perforated gastric ulcer. She was transiently hypotensive requiring phenylephrine, and was left intubated following her surgical procedure. She is initially on meropenem, was de- escalated to ertapenem. She underwent hemodialysis 06/22 for hyperkalemia and poor output. She clinically progressed and was extubated. Subsequently downgraded from ICU. Due to her medical complexity she was recommended for transfer to medical service at time of downgrade. Time bedside assessment NGT is in place. Patient is nondistressed. Endorses some postoperative abdominal discomfort improved from prior. Denies new/worsening pain. Denies shortness of breath. Denies chest pain. Abdomen is tender surrounding surgical site, but soft and without rebound/guarding. 2X SINCERE drains are intact left with serosanguineous fluid right with serous fluid. #Sepsis #Perforated gastric ulcer - pt was using diclofenac for long time for back pain - avoid NSAIDs 06/21/2024: S/p ex lap with identified perforated gastric ulcer s/p repair - periotoneal fluid culture (06/21): pseudomonas, BCx (06/22) NGTD Initially on meropenem, narrowed, continue ertapenem Surgery following, unfortunately rpt CT done today (06/25) showed small leak, thus decision made to keep pt NPO -ordered PPN on 06/26, central line consent obtained on 06/27, will start TPN continue lasix BID #Volume overload - discussed with nephro, due to nutritional deficiency , given improvement in renal fn, no further indication for HD - albumin q6h x24 hrs / Lasix 40mg IV daily - pharmacy consulted for TPN, first dose will be 06/26/24, 4pm -increased lasix to BID on 06/26, #SONI, CKD 3 Baseline creatinine 11.1. Acutely elevated creatinine with poor urine output in the setting of sepsis Hyperkalemic which improved after 1 dialysis session Nephrology following, no further plan for HD with improvement in Cr ARB/spironolactone/NSAIDs held - lasix resumed with albumin - SONI appears to have improved. #Anemia - s/p PRBC transfusion - rpt Hgb stable #IV infiltration - cont conservative management #Hypertension #Grade II diastolic dysfunction Echo 03/2021: LVEF hyperdynamic. Normal PA/RA pressures. Normal RV size and function. Has history of grade 2 diastolic dysfunction - anti Nebivolol held while n.p.o. - off of pressors, BP much improved, monitor while receiving lasix Right-sided colonic stricture, colonic mass Following with GI as an outpatient, and recent colonoscopy as noted. Cause of pneumoperitoneum was identified as perforated gastric ulcer.Continue outpatient follow-up. Path report showed fragments of colonic mucosa with focal ulceration and reactive changes no diagnostic evidence of malignancy identified from sampled tissue. Hypothyroidism Synthroid converted to IV 2/ NPO Hyperlipidemia Statin held while n.p.o. Admission and Anticipated Discharge Date Admission Date: June 21, 2024 Subjective 74 yo female reports no new symptoms. She states she feels she is wheezing more. Review of Systems Review of Systems: All systems reviewed & are unremarkable except as noted in HPI & below Physical Exam Physical Exam: Gen: no acute distress HEENT: NC/AT, MMM, NGT in place Lungs: No wheezing heard omn auscultation CVS: s1s2 nl , RRR Abd: surgical incision c/d/i, nl BS, soft : + ferreira Ext: + edema, RUE infiltrated IV with small areas of denuded skin Psych: pleasant, cooperative Results & Data Results & Data Vital Signs (Past 12 Hours) Vital Signs Temp Pulse Resp BP Pulse Ox O2 Del Method O2 Flow Rate 06/27/24 07:19 36.8 C 99 H 20 177/100 H 92 Nasal Cannula 3 06/27/24 04:52 37.2 C 98 H 18 180/93 H 92 Nasal Cannula 2.0 06/27/24 04:35 93 H 18 96 Nasal Cannula 2 06/26/24 23:18 37.3 C 97 H 18 171/90 H 92 Nasal Cannula 2.0 PG Care Time/CCT Total # of Minutes Spent Total Time Spent with Patient: Total time spent is greater than 50% in coordination of care (as documented) at patient's floor/unit and/or counseling patient: Coding Level of Care Code 80458 SUB INP/OBS CARE 3/50MIN Diagnoses Perforated gastric ulcer K25.5 SONI (acute kidney injury) N17.9 Septic shock A41.9; R65.21 Hypothyroidism E03.9 HTN (hypertension) I10 Hyperlipidemia E78.5 Colonic mass K63.89
[2024-06-27 09:00] LABS: BUN Creatinine Ratio 30.3 (10-20); Calcium 8.7 mg/dl (8.6-10.3); Creatinine Clr Calc Pharmacy 44.9 ml/min; Est GFR (African American) 64.2 ml/min; Est GFR (Non-African American) 55.4 ml/min; Phosphorus 2.3 mg/dl (2.5-4.9); Potassium 3.7 mmol/L (3.5-5.1)
[2024-06-27] MEDS: MEROPENEM 2,000 MG in 0.9 % SODIUM CHLORIDE 60 ML IV SCH (12:15)
[2024-06-27] MEDS: CENTRAL TPN IV SCH (15:21)
[2024-06-27] MEDS: [UNRECOGNIZED DRUG - OTHER] IV SCH (15:21)
[2024-06-27] MEDS: CLINOLIPID 20% IV FAT EMULSION 250 ML IV SCH (15:21)
--- NOTE | 2024-06-27 16:23 | Infectious Disease Consult ---
Date of Consultation June 27, 2024 Assessment & Plan (1) Perforated gastric ulcer: (2) Status post exploratory laparotomy: (3) Septic shock: Plan This is a 74-year-old female status post total right hip arthroplasty, lumbar stenosis, CKD who presents to the ED with abdominal pain, shortness of breath, lightheadedness. She recently underwent colonoscopy , which showed a possible stricture in her colon.. On 06/20 she had a repeat colonoscopy. At the area of possible stricture, there was many ulcerated areas. GI was able to traverse the area and no stricture was present. There was concern that the ulcerations were either ischemic or due to NSAID use. Biopsies were obtained with cold forceps. Postprocedure she developed abdominal pain that persisted throughout the day with some nausea and vomiting. She then began to feel lightheaded and dizzy, then cold and clammy. She presented to the ED for further evaluation. In the ED, she was afebrile, pulse 83, respiratory rate 20, blood pressure 98/55, O2 sats 98% on room air. Labs WBC 7.54, hemoglobin 10.1, hematocrit 33.4, platelets 425, BUN 53, creatinine 3.98, lactate 4--> 3.4,, procalcitonin 23.10---> 25.80. Chest x-ray showed potential free air under the right hemidiaphragm. CTAP showed mild ascites and scattered pneumoperitoneum c/f perforation. Site of perforation not clearly delineated but likely somewhere within the colon given recent colonoscopy. She underwent exploratory laparotomy, gastric washout, repair of the perforated gastric ulcer on 06/21. There was copious amounts of bile-stained purulent fluid in the peritoneum that was sent for culture. Colon did not appear to be perforated. The stomach had a large hole in the anterior portion of the antrum. There was no obvious tumor. She was intubated postop and required low-dose vasopressor support. Course complicated by oliguria but she not require HD as urine output improved. Outpatient Colon pathology showed focal mild epithelial atypia associated with ulceration. No diagnostic evidence of neoplasm/malignancy identified in the samples. She was initially on meropenem---> ertapenem. Repeat CTAP done on 06/25 with oral contrast via NG tube showed a possible small leak. An NG tube is in place. Labs noted for increase leukocytosis, WBC 15.63 on 06/27. Peritoneal fluid cultures finalized with Pseudomonas aeruginosa. Her antibiotics were changed back to meropenem on 06/27. ID consulted for Pseudomonas growing in peritoneal fluid. On my initial exam, she complains of fatigue and abdominal pain.She denies change in bowel or urine. Micro: Peritoneal fluid culture 06/21 Pseudomonas aeruginosa (sensitive not tested) Blood culture 06/22 NGTD Antibiotics Meropenem 06/21 - 06/22 Ertapenem #Perforated gastric ulcer/viscus w/ peritonitis and significant leakage. -Status post ex lap and washout #Pseudomonas Aeruginosa peritonitis #Increasing leukocytosis #Septic shock in the setting of perforated bowel, resolved #PCN allergy: anaphylaxis #Cipro SE; myalgias # [place] on CKD Her worsening leukocytosis likely occurred in the setting of ertapenem, which would not cover Pseudomonas. Pseudomonal coverage started today 06/27 with meropenem. Zosyn is not an option in her case secondary to PCN allergy ( an aphylaxis) . She is not sure if she received Cephalosporins in past, so we will hold off on cefepime/Flagyl for now. She reports muscle aches with Cipro. For complicated abdominal surgery, usually require 4 days of antibiotics once source control achieved. In her case Ertapenem has not covered Pseudomonas and her WBC has increased. Will continue antibiotics for at last 4-5 AND until WBC normalizes and Pro-Kade decreases ( procal 25.8 ) Recommendations Continue meropenem 2 g IV every 8 hours for Pseudomonas peritonitis. Repeat procalcitonin ordered for a.m. as per above Monitor WBC Thank you for this consult. ID will continue to follow Gerardo Storm MD, MPH Infectious Disease [facility], [facility] Call [phone] with questions Consultation Information Consultation was provided via telemedicine using two-way real-time interactive telecommunication between the patient and the telemedicine provider. For the duration of the visit, the provider was performing the assessment from a different facility than the patient. This includesuse of bluetooth stethoscope forauscultationperformed by the telepresenter that the telemedicine provider can hear if described in the physical exam. Mag[employer] District Judge contact information: Please call [facility] Call Center . (Phone Number For Physician Use Only) After establishing a telemedicine visit, patient was: Patient was verified with two unique identifiers Time Spent with Patient: Initial => 75 min History of Present Illness Reason for Consultation: Pseudomonas growing in peritoneal fluid Requesting Physician: Torres Montenegro Attending Physician: Torres Montenegro History of Present Illness This is a 74-year-old female status post total right hip arthroplasty, lumbar stenosis, CKD who presents to the ED with abdominal pain, shortness of breath, lightheadedness. She recently underwent colonoscopy , which showed a possible stricture in her colon.. On 06/20 she had a repeat colonoscopy. At the area of possible stricture, there was many ulcerated areas. GI was able to traverse the area and no stricture was present. There was concern that the ulcerations were either ischemic or due to NSAID use. Biopsies were obtained with cold forceps. Postprocedure she developed abdominal pain that persisted throughout the day with some nausea and vomiting. She then began to feel lightheaded and dizzy, then cold and clammy. She presented to the ED for further evaluation. In the ED, she was afebrile, pulse 83, respiratory rate 20, blood pressure 98/55, O2 sats 98% on room air. Labs WBC 7.54, hemoglobin 10.1, hematocrit 33.4, platelets 425, BUN 53, creatinine 3.98, lactate 4--> 3.4,, procalcitonin 23.10---> 25.80. Chest x-ray showed potential free air under the right hemidiaphragm. CTAP showed mild ascites and scattered pneumoperitoneum c/f perforation. Site of perforation not clearly delineated but likely somewhere within the colon given recent colonoscopy. She underwent exploratory laparotomy, gastric washout, repair of the perforated gastric ulcer on 06/21. There was copious amounts of bile-stained purulent fluid in the peritoneum that was sent for culture. Colon did not appear to be perforated. The stomach had a large hole in the anterior portion of the antrum. There was no obvious tumor. She was intubated postop and required low-dose vasopressor support. Course complicated by oliguria but she not require HD as urine output improved. Outpatient Colon pathology showed focal mild epithelial atypia associated with ulceration. No diagnostic evidence of neoplasm/malignancy identified in the samples. She was initially on meropenem---> ertapenem. Repeat CTAP done on 06/25 with oral contrast via NG tube showed a possible small leak. An NG tube is in place. Labs noted for increase leukocytosis, WBC 15.63 on 06/27. Peritoneal fluid cultures finalized with Pseudomonas aeruginosa. Her antibiotics were changed back to meropenem on 06/27. ID consulted for Pseudomonas growing in peritoneal fluid. On my initial exam, she complains of fatigue and abdominal pain.She denies change in bowel or urine. Allergies Allergy/AdvReac Type Severity Reaction Status Date / Time Penicillins Allergy Severe Anaphylaxis Verified 06/21/24 19:41 ciprofloxacin Allergy Intermediate myalgia Verified 06/21/24 19:41 [id number]-OTG-BdH Reductase AdvReac Intermediate muscle Verified 06/21/24 19:41 Inhibitor aches Home Medications Medication Instructions Recorded Confirmed Type antiarthritic combination no.2 900 450 mg PO BID 03/25/20 06/21/24 History mg tablet (glucosamine-chondroitin) ascorbate calcium (vitamin C) 500 500 mg PO QAM 03/25/20 06/21/24 History mg tablet cholecalciferol (vitamin D3) 50 50 mcg PO BID 03/25/20 06/21/24 History mcg (2,000 unit) tablet coQ10 (ubiquinol) 200 mg capsule 200 mg PO HS 03/25/20 06/21/24 History multivitamin 1 tab PO QAM 03/25/20 06/21/24 History Wheeled Walker #1 ea 10/13/22 06/21/24 Rx iodine 150 mcg tablet (Kelp 150 mcg PO QAM 10/16/22 06/21/24 History (iodine)) magnesium 250 mg tablet 250 mg PO HS 10/16/22 06/21/24 History diclofenac potassium 50 mg tablet 50 mg PO TID #270 tabs 10/13/23 06/21/24 Rx furosemide 40 mg tablet 40 mg PO DAILY #90 tabs 10/13/23 06/21/24 Rx alprazolam 0.5 mg tablet (Xanax) 0.5 mg PO HS #90 tabs 04/12/24 06/21/24 Rx levothyroxine 75 mcg tablet 75 mcg PO QAM #90 tabs 04/19/24 06/21/24 Rx (Synthroid) acetaminophen 500 mg capsule 1,000 mg PO TID PRN Pain 04/26/24 06/21/24 History calcium carbonate (Calcium 600) 600 mg PO HS 04/26/24 06/21/24 History clindamycin HCl 300 mg capsule 600 mg PO UD PRN dental procedure 04/26/24 06/21/24 History lysine 500 mg tablet 500 mg PO QAM Cold Sores 04/26/24 06/21/24 History rhubarb root extract 4 mg tablet 4 mg PO QAM 04/26/24 06/21/24 History (Estroven Complete Menopause Relief) sennosides 8.6 mg-docusate sodium 1 tab-cap PO DAILY PRN Constipation 04/26/24 06/21/24 History 50 mg tablet (Senokot-S) fluticasone propionate 50 2 spray intranasal QAM PRN sinus 05/16/24 06/21/24 Rx mcg/actuation nasal congestion #32 grams spray,suspension allopurinol 100 mg tablet 100 mg PO HS #90 tabs 05/17/24 06/21/24 Rx pramipexole 0.5 mg tablet 0.5 mg PO HS #90 tabs 05/18/24 06/21/24 Rx telmisartan 80 mg tablet (Micardis) 80 mg PO HS 30 days #90 tabs 05/18/24 06/21/24 Rx spironolactone 25 mg tablet 25 mg PO QAM #90 tabs 05/22/24 06/21/24 Rx nebivolol 10 mg tablet 10 mg PO QAM #90 tabs 06/07/24 06/21/24 Rx oxycodone 5 mg tablet 5 - 10 mg (1 - 2 x 5 mg) PO Q6 PRN 06/08/24 06/21/24 Rx pain #120 tabs atorvastatin 10 mg tablet 10 mg PO .every other day #90 tabs 06/12/24 06/21/24 Rx omega-3 fatty acids 1,000 mg 1,000 mg PO DAILY 06/21/24 06/21/24 History capsule vitamin B complex 1 tab PO DAILY 06/21/24 06/21/24 History Patient History Medical History Osteoarthritis Positive colorectal cancer screening using Cologuard test Neuropathy to see [facility] [place] 06/2024 (new patient) Anemia History of COVID-19 06/2023: mild flu symptoms. Lumbar stenosis severe L4-L5. has had epidural steroid injections and physical therapy Hyperparathyroidism pt unsure of details Hypothyroidism Hyperlipidemia Hypertension Hx of gout never had symptoms, had elevated uric acid levels. Hx of basal cell carcinoma Chronic kidney disease, stage 3 to see [facility] [place] Nephrology 05/2024 (as a new patient) Hx of migraines prior to menopause Surgical History S/P epidural steroid injection History of right hip replacement Hx of laparoscopy for tx endometriosis Hx of colonoscopy S/P Mohs surgery for basal cell carcinoma History of section Family History Brother Myocardial infarction Hypertension Smoker Grandmother (Maternal) Diabetes Father Hypertension Cancer bladder Stroke Myocardial infarction Mother Hypertension Asthma Congestive heart failure Myocardial infarction Sister Hypertension Eczema Denies family history of Ovarian cancer Prostate cancer Breast cancer Colorectal cancer Social History Smoking Status: Never smoker Second Hand Exposure: Yes (growing up until age 16); Do You Dip or Chew Tobacco: No; Hx Alcohol Use: Yes Alcohol type: beer and wine Alcohol Intake Frequency: Monthly or Less Hx Substance Use: No Preferred Language: Belgian Communication Ability: Effective Visual Impairment: No Limitations Hearing Ability: Normal Aircraft Refueller Required: No Beliefs That Will Affect Care: None marital status: / Current Living Situation: Alone current occupational status: employed 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 Pertinent positives as per HPI. Physical Exam Physical Exam: NAD, On 1.5 L NC , NGT in place NCAT, anicteric sclera Softly distended abdomen, Right SINCERE drain with dark bile fluid, Left SINCERE drain w/serous drainage. Mild line incision with roberto; pinkish in color: not warm,mildly tender. Burton in place with dark yellow urine. + BL LE edema AAO*3 Normal mood Results & Data Vital Signs (Past 12 Hours) Vital Signs Temp Pulse Resp BP Pulse Ox O2 Del Method O2 Flow Rate 06/27/24 14:43 37.2 C 96 H 20 154/89 H 93 Nasal Cannula 2 06/27/24 13:05 84 17 93 Nasal Cannula 2 06/27/24 10:46 36.6 C 89 20 161/78 H 93 Nasal Cannula 2 06/27/24 07:19 36.8 C 99 H 20 177/100 H 92 Nasal Cannula 3 06/27/24 07:00 Nasal Cannula 1.5 06/27/24 04:52 37.2 C 98 H 18 180/93 H 92 Nasal Cannula 2.0 06/27/24 04:35 93 H 18 96 Nasal Cannula 2 Laboratory Results Laboratory Results - last 48 hr 06/26/24 06/26/24 06/26/24 00:09 05:42 06:09 WBC 9.92 RBC 2.45 L Hgb 7.4 L Hct 22.7 L MCV 92.7 MCH 30.2 MCHC 32.6 RDW Std Deviation 45.9 RDW Coeff of Rafael 13.5 Plt Count 106 L MPV 10.1 Immature Gran % (Auto) 1.3 Neut % (Auto) 86.3 Lymph % (Auto) 7.3 Hemphill % (Auto) 3.9 Eos % (Auto) 0.9 Baso % (Auto) 0.3 Neut # (Auto) 8.56 H Lymph # (Auto) 0.72 L Hemphill # (Auto) 0.39 Eos # (Auto) 0.09 Baso # (Auto) 0.03 Immature Gran # (Auto) 0.13 Absolute Nucleated RBC 0.02 Nucleated RBC % (auto) 0.2 Polychromasia 1+ Sodium 140 Potassium 3.4 L Chloride 103 Carbon Dioxide 32 Anion Gap 5 BUN 29 H Creatinine 1.07 D Est Cr Clr Drug Dosing 45.3 Est GFR ( Amer) 58.4 Est GFR (Non-Af Amer) 50.4 BUN/Creatinine Ratio 27.1 H Glucose 88 POC Glucose 97 93 Calcium 8.6 Phosphorus 2.3 L Magnesium 2.1 Total Bilirubin 0.9 AST 33 Alkaline Phosphatase 103 B-Natriuretic Peptide Albumin 3.0 L Triglycerides 166 H 06/26/24 06/26/24 06/26/24 11:29 17:45 23:18 WBC RBC Hgb Hct MCV MCH MCHC RDW Std Deviation RDW Coeff of Rafael Plt Count MPV Immature Gran % (Auto) Neut % (Auto) Lymph % (Auto) Hemphill % (Auto) Eos % (Auto) Baso % (Auto) Neut # (Auto) Lymph # (Auto) Hemphill # (Auto) Eos # (Auto) Baso # (Auto) Immature Gran # (Auto) Absolute Nucleated RBC Nucleated RBC % (auto) Polychromasia Sodium Potassium Chloride Carbon Dioxide Anion Gap BUN Creatinine Est Cr Clr Drug Dosing Est GFR ( Amer) Est GFR (Non-Af Amer) BUN/Creatinine Ratio Glucose POC Glucose 99 96 108 H Calcium Phosphorus Magnesium Total Bilirubin AST Alkaline Phosphatase B-Natriuretic Peptide Albumin Triglycerides 06/27/24 06/27/24 06/27/24 05:33 08:05 12:04 WBC 15.63 H RBC 2.64 L Hgb 8.0 L Hct 23.8 L MCV 90.2 MCH 30.3 MCHC 33.6 RDW Std Deviation 44.2 RDW Coeff of Rafael 13.5 Plt Count 146 MPV 10.6 Immature Gran % (Auto) Neut % (Auto) Lymph % (Auto) Hemphill % (Auto) Eos % (Auto) Baso % (Auto) Neut # (Auto) Lymph # (Auto) Hemphill # (Auto) Eos # (Auto) Baso # (Auto) Immature Gran # (Auto) Absolute Nucleated RBC 0.02 Nucleated RBC % (auto) 0.1 Polychromasia Sodium 140 Potassium 3.7 Chloride 103 Carbon Dioxide 32 Anion Gap 5 BUN 30 H Creatinine 0.99 Est Cr Clr Drug Dosing 44.9 Est GFR ( Amer) 64.2 Est GFR (Non-Af Amer) 55.4 BUN/Creatinine Ratio 30.3 H Glucose 129 H POC Glucose 132 H 134 H Calcium 8.7 Phosphorus 2.3 L Magnesium 2.0 Total Bilirubin AST Alkaline Phosphatase B-Natriuretic Peptide 754 H Albumin Triglycerides Diagnostic Findings Microbiology 06/21/24 21:55 Peritoneal Fluid Gram Stain - Final 06/21/24 21:55 Peritoneal Fluid Aerobic and Anaerobic Culture - Final Pseudomonas aeruginosa 06/22/24 17:30 Blood Aerobic Blood Culture - Preliminary No growth in Aerobic bottle after 48 hours. 06/22/24 17:30 Blood Anaerobic Blood Culture - Final Abdomen/Pelvis CT 06/25/24 06:00 CT OF THE ABDOMEN AND PELVIS WITH ORAL CONTRAST CLINICAL HISTORY: s/p gastric ulcer perforation COMPARISON STUDY: CT of the abdomen and pelvis June 21, 2024. TECHNIQUE: Axial images of the abdomen and pelvis were obtained without IV contrast. Oral contrast was administered. Automated exposure control was utilized for the study. A dose lowering technique was utilized adhering to the principles of ALARA. FINDINGS: [id number] bilateral pleural effusions with subpleural opacities are present. Enlarged partially calcified mediastinal lymph nodes are incidentally noted. Index subcarinal lymph node measures 2.6 x 1.7 cm. Several right lower lung nodules are partially obscured but measure up to approximately 1 cm. There is anasarca. Status post repair of a gastric ulcer. Tip of nasogastric tube is within the gastric antrum. There is suspected trace extraluminal contrast along the posterior wall of the gastric antrum. A small fluid collection along the left hepatic lobe contains a small amount of gas. This collection measures 7.2 x 1.7 cm. Abdominal ascites shown on prior CT has markedly improved. There is a small amount of residual ascites. There is no evidence for a bowel obstruction. Abdominal and pelvic surgical drains are in place. Unenhanced images of the right adrenal gland, spleen, kidneys and pancreas are unremarkable with exception of left renal atrophy. A low- attenuation 2.6 cm left adrenal nodule favors an adenoma. There are prominent gastrohepatic ligament lymph nodes. These measure up to 1.6 x 0.8 cm. IMPRESSION: 1. Status post repair of a gastric ulcer. Suspected trace extraluminal oral contrast along the posterior wall of the gastric antrum. This favors a tiny leak. Small amount of extraluminal gas. Small fluid collection along the left hepatic lobe which measures 7.2 x 1.7 cm. This is likely postsurgical. Minimal ascites, significantly improved since preoperative CT. 2. Small to moderate bilateral pleural effusions with associated bibasilar opacities which could reflect atelectasis or less likely pneumonia. 3. No bowel obstruction. 4. Several right lower lung nodules and mildly enlarged partially calcified thoracic lymph nodes. The findings are indeterminate and a chest CT in 2 months is recommended. 5. Anasarca. ACT 112: Positive. There are findings on this exam that require communication between the performing entity and the patient following Patient Test Result Information Act ([place] Act 112) guidelines. Electronically signed by: Oneil Nixon M.D. 06/25/2024 9:17 AM Chest X-Ray 06/26/24 07:47 XR chest 2V PA/lateral HISTORY: hypoxia COMPARISON: Abdomen and pelvis CT 06/25/2024. FINDINGS: No pneumothorax. Small to moderate bilateral pleural effusions and bibasilar densities persist. The heart is mildly enlarged. There is mild central pulmonary vascular congestion without overt edema. Nasogastric tube terminates in the stomach. There is a surgical drain within the upper abdomen. IMPRESSION: 1. Small to moderate bilateral pleural effusions and bibasilar densities are again noted. 2. Cardiomegaly and mild congestive change. 3. Nasogastric tube terminates in the stomach. ACT 112: Negative or not required by law. Electronically signed by: Memo Lozada M.D. 06/26/2024 9:38 AM Medications Administered Home Medications Medication Instructions Recorded Confirmed Last Taken antiarthritic combination no.2 900 450 mg PO BID 03/25/20 06/21/24 05/04/24 mg tablet (glucosamine-chondroitin) ascorbate calcium (vitamin C) 500 500 mg PO QAM 03/25/20 06/21/24 05/08/24 mg tablet cholecalciferol (vitamin D3) 50 50 mcg PO BID 03/25/20 06/21/24 05/08/24 mcg (2,000 unit) tablet coQ10 (ubiquinol) 200 mg capsule 200 mg PO HS 03/25/20 06/21/24 05/04/24 multivitamin 1 tab PO QAM 03/25/20 06/21/24 05/04/24 Wheeled Walker #1 ea 10/13/22 06/21/24 Unknown iodine 150 mcg tablet (Kelp 150 mcg PO QAM 10/16/22 06/21/24 05/08/24 (iodine)) magnesium 250 mg tablet 250 mg PO HS 10/16/22 06/21/24 05/07/24 diclofenac potassium 50 mg tablet 50 mg PO TID #270 tabs 10/13/23 06/21/24 05/07/24 furosemide 40 mg tablet 40 mg PO DAILY #90 tabs 10/13/23 06/21/24 05/07/24 alprazolam 0.5 mg tablet (Xanax) 0.5 mg PO HS #90 tabs 04/12/24 06/21/24 05/08/24 levothyroxine 75 mcg tablet 75 mcg PO QAM #90 tabs 04/19/24 06/21/24 05/09/24 (Synthroid) acetaminophen 500 mg capsule 1,000 mg PO TID PRN Pain 04/26/24 06/21/24 05/09/24 calcium carbonate (Calcium 600) 600 mg PO HS 04/26/24 06/21/24 05/08/24 clindamycin HCl 300 mg capsule 600 mg PO UD PRN dental procedure 04/26/24 06/21/24 Unknown lysine 500 mg tablet 500 mg PO QAM Cold Sores 04/26/24 06/21/24 05/08/24 rhubarb root extract 4 mg tablet 4 mg PO QAM 04/26/24 06/21/24 05/04/24 (Estroven Complete Menopause Relief) sennosides 8.6 mg-docusate sodium 1 tab-cap PO DAILY PRN Constipation 04/26/24 06/21/24 Unknown 50 mg tablet (Senokot-S) fluticasone propionate 50 2 spray intranasal QAM PRN sinus 05/16/24 06/21/24 Unknown mcg/actuation nasal congestion #32 grams spray,suspension allopurinol 100 mg tablet 100 mg PO HS #90 tabs 05/17/24 06/21/24 Unknown pramipexole 0.5 mg tablet 0.5 mg PO HS #90 tabs 05/18/24 06/21/24 Unknown telmisartan 80 mg tablet (Micardis) 80 mg PO HS 30 days #90 tabs 05/18/24 06/21/24 Unknown spironolactone 25 mg tablet 25 mg PO QAM #90 tabs 05/22/24 06/21/24 Unknown nebivolol 10 mg tablet 10 mg PO QAM #90 tabs 06/07/24 06/21/24 Unknown oxycodone 5 mg tablet 5 - 10 mg (1 - 2 x 5 mg) PO Q6 PRN 06/08/24 06/21/24 Unknown pain #120 tabs atorvastatin 10 mg tablet 10 mg PO .every other day #90 tabs 06/12/24 06/21/24 Unknown omega-3 fatty acids 1,000 mg 1,000 mg PO DAILY 06/21/24 06/21/24 Unknown capsule vitamin B complex 1 tab PO DAILY 06/21/24 06/21/24 Unknown Active Medications Generic Name Dose Route Start Last Admin Trade Name Freq PRN Reason Stop Dose Admin Albuterol 3 ml 06/27/24 04:24 06/27/24 13:04 Albut/Ipratrop 3mg/0.5mg Neb 3 Ml Vial NEB 07/27/24 04:23 3 ml Q6R PRN Administration Shortness Of Breath Or Wheezing Protocol Dextrose 25 - 50 ml 06/23/24 13:46 06/23/24 13:49 Dextrose 50% 50 Ml Syringe IV 07/23/24 13:45 25 ml UD PRN Administration Hypoglycemia Protocol Protocol Furosemide 40 mg 06/26/24 21:00 06/27/24 09:51 Furosemide 40 Mg/4 Ml Vial IV 07/26/24 20:59 40 mg BID ELSY Administration Hydromorphone HCl 0.5 mg 06/26/24 12:30 06/27/24 14:13 Hydromorphone Inj 0.5 Mg/0.5 Ml Syr IV 07/10/24 12:29 0.5 mg Q3H PRN Administration Pain Pantoprazole Sodium 40 mg/ 10 mls @ 5 mls/min 06/23/24 21:00 06/27/24 08:13 Syringe IV 07/23/24 20:59 5 mls/min BID@0900,2100 ELSY Administration Meropenem 2,000 mg/ Sodium 100 mls @ 200 mls/hr 06/27/24 12:00 06/27/24 12:50 Chloride IV 07/07/24 11:59 Infused Q12H ELSY Infusion Protocol Amino Acids/Dextrose 1,086 ml/ 1,086 mls @ 45.2 mls/hr 06/27/24 16:00 06/27/24 15:21 Nutrition (Parenteral) IV 06/28/24 15:59 45.2 mls/hr .Q24H ELSY Administration Protocol Fat Emulsion-[place] Oil/Soybean Oil 250 mls @ 41.667 mls/hr 06/27/24 16:00 06/27/24 15:21 Clinolipid 20% Iv Fat Emulsion IV 06/27/24 21:59 41.7 mls/hr .Q6H ELSY Administration Miscellaneous 1 each 06/26/24 22:00 06/26/24 22:03 Stop Clinolipid N/A 07/26/24 21:59 Not Given Q24H [facility] Ondansetron HCl 4 mg 06/21/24 23:40 06/26/24 11:33 Ondansetron Inj 2 Mg/Ml 2 Ml Vial IV 07/21/24 23:39 4 mg Q6H PRN Administration Nausea And Vomiting
[2024-06-27] MEDS: FLUTICASONE PROPIONATE NA SPR 16 GM BTL SCH (21:48)
[2024-06-28 07:26] LABS: Basophils # (auto) 0.03 K/uL (0.00-0.20); Basophils % (auto) 0.2 %; Eosinophils # (auto) 0.14 K/uL (0.00-0.50); Eosinophils % (auto) 0.9 %; Hematocrit (blood only) 24.6 % (37.0-47.0); Immature Granulocytes # (auto) 0.21 K/uL (0.01-0.20); Immature Granulocytes % (auto) 1.4 %; Lymphocytes # (auto) 0.93 K/uL (1.20-3.40); Lymphocytes % (auto) 6.1 %; Mean Corpuscular Hemoglobin 29.5 pg (25.0-34.0); Mean Corpuscular Hgb Conc 32.5 g/dL (32.0-36.0); Mean Corpuscular Volume 90.8 fL (80.0-100.0); Mean Platelet Volume 11.1 fL (9.4-12.4); Monocytes % (auto) 5.2 %; Neutrophils % (auto) 86.2 %; Platelet Count 193 K/uL (130-400); RDW Coefficient of Variation 13.6 % (11.5-14.5); RDW Standard Deviation 44.9 fL (36.4-46.3); Red Blood Count 2.71 M/uL (4.20-5.40); White Blood Count 15.31 K/ul (4.8-10.8)
[2024-06-28 07:37] LABS: BUN Creatinine Ratio 37.9 (10-20); Calcium 8.6 mg/dl (8.6-10.3); Creatinine Clr Calc Pharmacy 48.6 ml/min; Est GFR (African American) 67.4 ml/min; Est GFR (Non-African American) 58.2 ml/min; Phosphorus 2.4 mg/dl (2.5-4.9); Potassium 3.8 mmol/L (3.5-5.1)
--- NOTE | 2024-06-28 07:51 | Surgery Progress Note ---
Date of Service June 28, 2024 Assessment & Plan (1) Perforated gastric ulcer: Plan: s/p ex lap, repair of perforated gastric ulcer and washout on 06/21 WBC 15 (15), Hbg 8. Pt afebrile NGT remains in place as CT scan on wednesday questioned possible small leak She has been started on picc/ppn while NPO Keep SINCERE drain x2 in place for now ID consulted for recommendations on antibiotics Will consider repeat contrast study in near future PT/OT ordered, but needs encouragement to get OOB and ambulate and work on pulmonary toilet Admission and Anticipated Discharge Date Admission Date: June 21, 2024 Supervising Physician Co-Signing Physician Notes Patient seen and examined, labs reviewed, agree with above. Status post laparotomy with Uriel patch repair of perforated gastric ulcer secondary to NSAID use. CT scan on Wednesday revealed a questionable small leak at the repair site, NG tube has remained in and the drains are still in place. On exam she is afebrile stable vitals, NG tube with moderate output, pelvic SINCERE serosanguineous, gastric SINCERE serosanguineous possibly bilious. Incision with roberto, no infection or hernia. Abdomen soft, appropriately tender to palpation, nondistended. CT scan from Wednesday personally viewed and interpreted agree with the assessment of an area that could represent a small leak. WBC 15 which is stable from yesterday but up from being normal for several days. Had this time we will continue the NG tube. A PICC line has been placed and she is on TPN now. Continue antibiotics, cultures from peritoneal fluid grow Pseudomonas, ID has adjusted her antibiotic coverage and is following. Discussed with radiology, will plan on repeating a CT tomorrow without oral or IV contrast to see if that linear density is still present could represent a leak, followed by a CT scan with oral and IV contrast to assess for leak as well as the fluid collection is present anterior abdomen. Subjective Patient feeling okay. Reports some ongoing post op pain but feels it is improving. Otherwise it is controlled with prn pain meds. Says she has not really been out of bed much. Physical Exam Physical Exam: awake/alert, no distress Respiratory: normal respiratory effort Gastrointestinal (Abdomen): Inspection/Auscultation: + abdominal surgical incision (c/d/i with midline roberto, no signs of infection ) and + abdominal surgical drain present (L SINCERE serosang, R SINCERE scant amount (?bilious)) Percussion/Palpation: abdomen soft Results & Data Vital Signs (Past 12 Hours) Vital Signs Temp Pulse Resp BP Pulse Ox O2 Del Method O2 Flow Rate 06/28/24 07:10 98.4 F 96 H 21 160/83 H 94 Nasal Cannula 2 06/28/24 02:17 97.7 F 97 H 18 174/96 H 93 Nasal Cannula 1.5 06/28/24 00:00 98 H 20 06/27/24 22:08 99.3 F 99 H 18 163/93 H 92 Nasal Cannula 1.5 06/27/24 20:00 Nasal Cannula 1.5 PG Care Time/CCT Total # of Minutes Spent Total Time Spent with Patient: Total time spent is greater than 50% in coordination of care (as documented) at patient's floor/unit and/or counseling patient: Coding Level of Care Code 45760 Post Operative Follow-Up Diagnoses Perforated gastric ulcer K25.5
[2024-06-28] MEDS: LEVOTHYROXINE SODIUM IV SCH (09:09)
--- NOTE | 2024-06-28 10:38 | Pharmacy Report ---
Pharmacy PN Follow-up Note - Date of Service June 28, 2024 - Subjective Patient is currently on day #3 of TPN for malnutrition secondary to gastric ulcer perforation. - Objective Height & Weight (Last Documented) Height 5 ft 1 in Weight 81.1 kg Diet Order(s) 06/21/24 18:48 NPO Intake & Ouput (24hrs) 06/27/24 06/28/24 06/29/24 06:59 06:59 06:59 Intake Total 1705 / 1705 1901.45 / 1901.45 Output Total 4018 / 4018 3650 / 3650 820 / 820 Balance -2313 / -2313 -1748.55 / -1748.55 -820 / -820 Selected Laboratory Results 06/28/24 06:28 Sodium 143 Potassium 3.8 Chloride 106 Carbon Dioxide 32 Anion Gap 5 BUN 36 H Creatinine 0.95 Est GFR ( Amer) 67.4 Est GFR (Non-Af Amer) 58.2 BUN/Creatinine Ratio 37.9 H Glucose 130 H Calcium 8.6 Phosphorus 2.4 L Magnesium 2.0 - Assessment & Plan Assessment: * The patient is a 74 year old female admitted on 06/21/24 for perforated gastric ulcer * Patient is to receive parenteral nutrition for gastric ulcer with perforation s/p exploratory laparotomy with wash out, malnutrition and remains NPO. * Nephrology recommended initiation of parenteral nutrition to assist in volume overload/third spacing in the setting of malnutrition. * Hospitalist requested max volume ~1500 mL/day for day 1 - can re-evaluate daily * Pertinent PMHx: CKD (patient did require HD earlier this admission due to SONI) * PICC line placed on 06/27/24, will continue on w/ central TPN formulation Plan: * For Day #3 of TPN administration, the following will be ordered: * Macronutrients: * Amino Acids: 80 grams/day * Dextrose: 140 grams/day * Lipids: 50 grams/day * Micronutrients: * Sodium chloride: 80 mEq/day * Potassium phosphate: 36 mMol/day * Potassium acetate: 40 mEq/day * Magnesium sulfate: 8.12 mEq/day * Multivitamins: 10 mL/day * Trace elements: 1 mL/day * Thiamine: 100 mg/day * Folic Acid: 1 mg/day * Total volume of 1078 mL will be infused over 24 hours and will provide 1296 kcal/day * Labs will be ordered per PN protocol. * Pharmacy will follow and adjust PN orders on a daily basis. Thank you!
[2024-06-28] MEDS: CLINOLIPID 20% IV FAT EMULSION 250 ML IV SCH (16:07)
[2024-06-28] MEDS: AA 8%/D14W 1L 1,078 ML in Central TPN bag 0 ML IV SCH (16:07)
--- NOTE | 2024-06-28 16:24 | Infectious Disease Progress Nt ---
Date of Service June 28, 2024 Assessment & Plan (1) Status post exploratory laparotomy: (2) Perforated gastric ulcer: Plan This is a 74-year-old female status post total right hip arthroplasty, lumbar stenosis, CKD who presents to the ED with abdominal pain, shortness of breath, lightheadedness. She recently underwent colonoscopy , which showed a possible stricture in her colon.. On 06/20 she had a repeat colonoscopy. At the area of possible stricture, there was many ulcerated areas. GI was able to traverse the area and no stricture was present. There was concern that the ulcerations were either ischemic or due to NSAID use. Biopsies were obtained with cold fo rceps. Postprocedure she developed abdominal pain that persisted throughout the day with some nausea and vomiting. She then began to feel lightheaded and dizzy, then cold and clammy. She presented to the ED for further evaluation. In the ED, she was afebrile, pulse 83, respiratory rate 20, blood pressure 98/55, O2 sats 98% on room air. Labs WBC 7.54, hemoglobin 10.1, hematocrit 33.4, platelets 425, BUN 53, creatinine 3.98, lactate 4--> 3.4,, procalcitonin 23.10---> 25.80. Chest x-ray showed potential free air under the right hemidiaphragm. CTAP showed mild ascites and scattered pneumoperitoneum c/f perforation. Site of perforation not clearly delineated but likely somewhere within the colon given recent colonoscopy. She underwent exploratory laparotomy, gastric washout, repair of the perforated gastric ulcer on 06/21. There was copious amounts of bile-stained purulent fluid in the peritoneum that was sent for culture. Colon did not appear to be perforated. The stomach had a large hole in the anterior portion of the antrum. There was no obvious tumor. She was intubated postop and required low-dose vasopressor support. Course complicated by oliguria but she not require HD as urine output improved. Outpatient Colon pathology showed focal mild epithelial atypia associated with ulceration. No diagnostic evidence of neoplasm/malignancy identified in the samples. She was initially on meropenem---> ertapenem. Repeat CTAP done on 06/25 with oral contrast via NG tube showed a possible small leak. An NG tube is in place. Labs noted for increase leukocytosis, WBC 15.63 on 06/27. Peritoneal fluid cultures finalized with Pseudomonas aeruginosa. Her antibiotics were changed back to meropenem on 06/27. ID consulted for Pseudomonas growing in peritoneal fluid. On my initial exam, she complains of fatigue and abdominal pain.She denies change in bowel or urine. Micro: Peritoneal fluid culture 06/21 Pseudomonas aeruginosa (sensitive not tested) Blood culture 06/22 NGTD Antibiotics Meropenem 06/21 - 06/22 Ertapenem #Perforated gastric ulcer/viscus w/ peritonitis and significant leakage. -Status post ex lap and washout #Pseudomonas Aeruginosa peritonitis #Increasing leukocytosis #Septic shock in the setting of perforated bowel, resolved #PCN allergy: anaphylaxis #Cipro SE; myalgias # [place] on CKD Her worsening leukocytosis likely occurred in the setting of ertapenem, which would not cover Pseudomonas. Pseudomonal coverage started today 06/27 with meropenem. Zosyn is not an option in her case secondary to PCN allergy ( anaphylaxis) . She is not sure if she received Cephalosporins in past, so we will hold off on cefepime/Flagyl for now. She reports muscle aches with Cipro. For complicated abdominal surgery, usually require 4 days of antibiotics once source control achieved. In her case Ertapenem has not covered Pseudomonas and her WBC has increased. Will continue antibiotics for at last 4-5 AND until WBC normalizes and Pro-Kade decreases ( procal 25.8 ) 06/28 procal down to 0.88, WBC 15.31 Recommendations Continue meropenem but decrease to 1g iv q8hr (crcl 48.6) for Pseudomonas peritonitis. Monitor WBC ID will continue to follow Gerardo Storm MD, MPH Infectious Disease [facility], ID Division Call [phone] with questions Admission and Anticipated Discharge Date Admission Date: June 21, 2024 Subjective This patient recommendation is based on a telemedicine consult request which was completed asynchronously through chart review and information provided by the primary physician. The patient was not seen or examined today. The evaluation is consultative in nature and all patient care and treatment decisions can either be accepted or rejected by the patient's primary hospital-based treating physician using their own independent medical judgment for their patient. Time Spent Reviewing Chart: 21 - 30 minutes procalcitonin down to 0.88 WBC 15.31 Afebrile Results & Data Vital Signs (Past 12 Hours) Vital Signs Temp Pulse Pulse Resp BP Pulse Ox O2 Del Method 06/28/24 15:15 36.8 C 110 H 19 146/88 H 91 Room Air 06/28/24 15:04 103 H 06/28/24 10:54 93 Nasal Cannula 06/28/24 10:49 36.8 C 108 H 20 153/91 H 06/28/24 08:00 101 H 06/28/24 08:00 Room Air 06/28/24 07:10 36.9 C 96 H 21 160/83 H 94 Nasal Cannula O2 Flow Rate 06/28/24 15:15 06/28/24 15:04 06/28/24 10:54 1 06/28/24 10:49 06/28/24 08:00 06/28/24 08:00 06/28/24 07:10 2 Laboratory Results Laboratory Results - last 48 hr 06/26/24 06/26/24 06/27/24 17:45 23:18 05:33 WBC RBC Hgb Hct MCV MCH MCHC RDW Std Deviation RDW Coeff of Rafael Plt Count MPV Immature Gran % (Auto) Neut % (Auto) Lymph % (Auto) [place] % (Auto) Eos % (Auto) Baso % (Auto) Neut # (Auto) Lymph # (Auto) [place] # (Auto) Eos # (Auto) Baso # (Auto) Immature Gran # (Auto) Absolute Nucleated RBC Nucleated RBC % (auto) Sodium Potassium Chloride Carbon Dioxide Anion Gap BUN Creatinine Est Cr Clr Drug Dosing Est GFR ( Amer) Est GFR (Non-Af Amer) BUN/Creatinine Ratio Glucose POC Glucose 96 108 H 132 H Calcium Phosphorus Magnesium B-Natriuretic Peptide Procalcitonin 06/27/24 06/27/24 06/27/24 08:05 12:04 17:56 WBC 15.63 H RBC 2.64 L Hgb 8.0 L Hct 23.8 L MCV 90.2 MCH 30.3 MCHC 33.6 RDW Std Deviation 44.2 RDW Coeff of Rafael 13.5 Plt Count 146 MPV 10.6 Immature Gran % (Auto) Neut % (Auto) Lymph % (Auto) [place] % (Auto) Eos % (Auto) Baso % (Auto) Neut # (Auto) Lymph # (Auto) [place] # (Auto) Eos # (Auto) Baso # (Auto) Immature Gran # (Auto) Absolute Nucleated RBC 0.02 Nucleated RBC % (auto) 0.1 Sodium 140 Potassium 3.7 Chloride 103 Carbon Dioxide 32 Anion Gap 5 BUN 30 H Creatinine 0.99 Est Cr Clr Drug Dosing 44.9 Est GFR ( Amer) 64.2 Est GFR (Non-Af Amer) 55.4 BUN/Creatinine Ratio 30.3 H Glucose 129 H POC Glucose 134 H 135 H Calcium 8.7 Phosphorus 2.3 L Magnesium 2.0 B-Natriuretic Peptide 754 H Procalcitonin 06/28/24 06/28/24 06/28/24 00:47 05:56 06:28 WBC RBC Hgb Hct MCV MCH MCHC RDW Std Deviation RDW Coeff of Rafael Plt Count MPV Immature Gran % (Auto) Neut % (Auto) Lymph % (Auto) [place] % (Auto) Eos % (Auto) Baso % (Auto) Neut # (Auto) Lymph # (Auto) [place] # (Auto) Eos # (Auto) Baso # (Auto) Immature Gran # (Auto) Absolute Nucleated RBC Nucleated RBC % (auto) Sodium 143 Potassium 3.8 Chloride 106 Carbon Dioxide 32 Anion Gap 5 BUN 36 H Creatinine 0.95 Est Cr Clr Drug Dosing 48.6 Est GFR ( Amer) 67.4 Est GFR (Non-Af Amer) 58.2 BUN/Creatinine Ratio 37.9 H Glucose 130 H POC Glucose 148 H 140 H Calcium 8.6 Phosphorus 2.4 L Magnesium 2.0 B-Natriuretic Peptide Procalcitonin 0.88 H 06/28/24 06/28/24 06:39 11:10 WBC 15.31 H RBC 2.71 L Hgb 8.0 L Hct 24.6 L MCV 90.8 MCH 29.5 MCHC 32.5 RDW Std Deviation 44.9 RDW Coeff of Rafael 13.6 Plt Count 193 MPV 11.1 Immature Gran % (Auto) 1.4 Neut % (Auto) 86.2 Lymph % (Auto) 6.1 [place] % (Auto) 5.2 Eos % (Auto) 0.9 Baso % (Auto) 0.2 Neut # (Auto) 13.20 H Lymph # (Auto) 0.93 L [place] # (Auto) 0.80 H Eos # (Auto) 0.14 Baso # (Auto) 0.03 Immature Gran # (Auto) 0.21 H Absolute Nucleated RBC Nucleated RBC % (auto) Sodium Potassium Chloride Carbon Dioxide Anion Gap BUN Creatinine Est Cr Clr Drug Dosing Est GFR ( Amer) Est GFR (Non-Af Amer) BUN/Creatinine Ratio Glucose POC Glucose 135 H Calcium Phosphorus Magnesium B-Natriuretic Peptide Procalcitonin Diagnostic Findings Microbiology 06/22/24 17:30 Blood Aerobic Blood Culture - Final No growth in Aerobic bottle after 5 days. 06/22/24 17:30 Blood Anaerobic Blood Culture - Final 06/21/24 21:55 Peritoneal Fluid Gram Stain - Final 06/21/24 21:55 Peritoneal Fluid Aerobic and Anaerobic Culture - Final Pseudomonas aeruginosa Chest X-Ray 06/26/24 07:47 XR chest 2V PA/lateral HISTORY: hypoxia COMPARISON: Abdomen and pelvis CT 06/25/2024. FINDINGS: No pneumothorax. Small to moderate bilateral pleural effusions and bibasilar densities persist. The heart is mildly enlarged. There is mild central pulmonary vascular congestion without overt edema. Nasogastric tube terminates in the stomach. There is a surgical drain within the upper abdomen. IMPRESSION: 1. Small to moderate bilateral pleural effusions and bibasilar densities are again noted. 2. Cardiomegaly and mild congestive change. 3. Nasogastric tube terminates in the stomach. ACT 112: Negative or not required by law. Electronically signed by: Memo Lozada M.D. 06/26/2024 9:38 AM Medications Administered Home Medications Medication Instructions Recorded Confirmed Last Taken antiarthritic combination no.2 900 450 mg PO BID 03/25/20 06/21/24 05/04/24 mg tablet (glucosamine-chondroitin) ascorbate calcium (vitamin C) 500 500 mg PO QAM 03/25/20 06/21/24 05/08/24 mg tablet cholecalciferol (vitamin D3) 50 50 mcg PO BID 03/25/20 06/21/24 05/08/24 mcg (2,000 unit) tablet coQ10 (ubiquinol) 200 mg capsule 200 mg PO HS 03/25/20 06/21/24 05/04/24 multivitamin 1 tab PO QAM 03/25/20 06/21/24 05/04/24 Wheeled Walker #1 ea 10/13/22 06/21/24 Unknown iodine 150 mcg tablet (Kelp 150 mcg PO QAM 10/16/22 06/21/24 05/08/24 (iodine)) magnesium 250 mg tablet 250 mg PO HS 10/16/22 06/21/24 05/07/24 diclofenac potassium 50 mg tablet 50 mg PO TID #270 tabs 10/13/23 06/21/24 05/07/24 furosemide 40 mg tablet 40 mg PO DAILY #90 tabs 10/13/23 06/21/24 05/07/24 alprazolam 0.5 mg tablet (Xanax) 0.5 mg PO HS #90 tabs 04/12/24 06/21/24 05/08/24 levothyroxine 75 mcg tablet 75 mcg PO QAM #90 tabs 04/19/24 06/21/24 05/09/24 (Synthroid) acetaminophen 500 mg capsule 1,000 mg PO TID PRN Pain 04/26/24 06/21/24 05/09/24 calcium carbonate (Calcium 600) 600 mg PO HS 04/26/24 06/21/24 05/08/24 clindamycin HCl 300 mg capsule 600 mg PO UD PRN dental procedure 04/26/24 06/21/24 Unknown lysine 500 mg tablet 500 mg PO QAM Cold Sores 04/26/24 06/21/24 05/08/24 rhubarb root extract 4 mg tablet 4 mg PO QAM 04/26/24 06/21/24 05/04/24 (Estroven Complete Menopause Relief) sennosides 8.6 mg-docusate sodium 1 tab-cap PO DAILY PRN Constipation 04/26/24 06/21/24 Unknown 50 mg tablet (Senokot-S) fluticasone propionate 50 2 spray intranasal QAM PRN sinus 05/16/24 06/21/24 Unknown mcg/actuation nasal congestion #32 grams spray,suspension allopurinol 100 mg tablet 100 mg PO HS #90 tabs 05/17/24 06/21/24 Unknown pramipexole 0.5 mg tablet 0.5 mg PO HS #90 tabs 05/18/24 06/21/24 Unknown telmisartan 80 mg tablet (Micardis) 80 mg PO HS 30 days #90 tabs 05/18/24 06/21/24 Unknown spironolactone 25 mg tablet 25 mg PO QAM #90 tabs 05/22/24 06/21/24 Unknown nebivolol 10 mg tablet 10 mg PO QAM #90 tabs 06/07/24 06/21/24 Unknown oxycodone 5 mg tablet 5 - 10 mg (1 - 2 x 5 mg) PO Q6 PRN 06/08/24 06/21/24 Unknown pain #120 tabs atorvastatin 10 mg tablet 10 mg PO .every other day #90 tabs 06/12/24 06/21/24 Unknown omega-3 fatty acids 1,000 mg 1,000 mg PO DAILY 06/21/24 06/21/24 Unknown capsule vitamin B complex 1 tab PO DAILY 06/21/24 06/21/24 Unknown Active Medications Generic Name Dose Route Start Last Admin Trade Name Freq PRN Reason Stop Dose Admin Albuterol 3 ml 06/27/24 04:24 06/27/24 13:04 Albut/Ipratrop 3mg/0.5mg Neb 3 Ml Vial NEB 07/27/24 04:23 3 ml Q6R PRN Administration Shortness Of Breath Or Wheezing Protocol Dextrose 25 - 50 ml 06/23/24 13:46 06/23/24 13:49 Dextrose 50% 50 Ml Syringe IV 07/23/24 13:45 25 ml UD PRN Administration Hypoglycemia Protocol Protocol Fluticasone Propionate 2 sprays 06/27/24 21:00 06/27/24 21:48 Fluticasone Propionate Na Spr 16 Gm Btl NA 07/27/24 20:59 2 sprays Q24H ELSY Administration Furosemide 40 mg 06/26/24 21:00 06/28/24 08:16 Furosemide 40 Mg/4 Ml Vial IV 07/26/24 20:59 40 mg BID ELSY Administration Hydromorphone HCl 0.5 mg 06/26/24 12:30 06/28/24 14:45 Hydromorphone Inj 0.5 Mg/0.5 Ml Syr IV 07/10/24 12:29 0.5 mg Q3H PRN Administration Pain Pantoprazole Sodium 40 mg/ 10 mls @ 5 mls/min 06/23/24 21:00 06/28/24 08:17 Syringe IV 07/23/24 20:59 5 mls/min BID@0900,2100 ELSY Administration Levothyroxine Sodium 52.5 mcg/ 2.625 mls @ 2 mls/min 06/28/24 09:00 06/28/24 09:09 Syringe IV 07/28/24 08:59 2 mls/min Q3D@0900 ELSY Administration Protocol Meropenem 2,000 mg/ Sodium 100 mls @ 200 mls/hr 06/27/24 12:00 06/28/24 14:23 Chloride IV 07/07/24 11:59 Infused Q12H ELSY Infusion Protocol Amino Acids/Dextrose 1,078 ml/ 1,078 mls @ 44.9 mls/hr 06/28/24 16:00 06/28/24 16:07 Nutrition (Parenteral) IV 06/29/24 15:59 44.9 mls/hr .Q24H ELSY Administration Protocol Fat Emulsion-[place] Oil/Soybean Oil 250 mls @ 41.667 mls/hr 06/28/24 16:00 06/28/24 16:07 Clinolipid 20% Iv Fat Emulsion IV 06/28/24 21:59 41.7 mls/hr .Q6H ELSY Administration Miscellaneous 1 each 06/26/24 22:00 06/27/24 21:21 Stop Clinolipid N/A 07/26/24 21:59 1 each Q24H ELSY Administration Ondansetron HCl 4 mg 06/21/24 23:40 06/26/24 11:33 Ondansetron Inj 2 Mg/Ml 2 Ml Vial IV 07/21/24 23:39 4 mg Q6H PRN Administration Nausea And Vomiting
[2024-06-28] MEDS: HYDROmorphone INJ 0.5 MG/0.5 ML SYR IV PRN (20:59)
--- NOTE | 2024-06-28 21:01 | Hospitalist Progress Note ---
Date of Service June 28, 2024 Assessment & Plan (1) Perforated gastric ulcer: (2) SONI (acute kidney injury): (3) Septic shock: (4) Hypothyroidism: (5) HTN (hypertension): (6) Hyperlipidemia: (7) Colonic mass: Plan 74-year-old female presented to the ER 06/01 with abdominal pain after undergoing a colonoscopy, during which an area of stricture with ulceration was noted. Patient subsequently developed abdominal pain which gradually worsened and was seen in the ER. CTA/P showed mild abdominal ascites, scattered pneumoperitoneum suspicious for bowel perforation. Chest x-ray showed suspected free air under the right diaphragm. Patient presented to the ER fluid respons samantha but initially hypotensive. Patient was taken for ex lap and admitted by surgery that evening. Ex lap identified a perforated gastric ulcer and Uriel patch of perforated ulcer was performed. Patient was subsequently transferred to the ICU for septic shock due to peritonitis with perforated gastric ulcer. She was transiently hypotensive requiring phenylephrine, and was left intubated following her surgical procedure. She is initially on meropenem, was de- escalated to ertapenem. She underwent hemodialysis 06/22 for hyperkalemia and poor output. She clinically progressed and was extubated. Subsequently downgraded from ICU. Due to her medical complexity she was recommended for transfer to medical service at time of downgrade. Time bedside assessment NGT is in place. Patient is nondistressed. Endorses some postoperative abdominal discomfort improved from prior. Denies new/worsening pain. Denies shortness of breath. Denies chest pain. Abdomen is tender surrounding surgical site, but soft and without rebound/guarding. 2X SINCERE drains are intact left with serosanguineous fluid right with serous fluid. #Sepsis #Perforated gastric ulcer - pt was using diclofenac for long time for back pain - avoid NSAIDs 06/21/2024: S/p ex lap with identified perforated gastric ulcer s/p repair - periotoneal fluid culture (06/21): pseudomonas, BCx (06/22) NGTD Initially on meropenem, narrowed, continue ertapenem Surgery following, unfortunately rpt CT done today (06/25) showed small leak, thus decision made to keep pt NPO -ordered PPN on 06/26, central line consent obtained on 06/27, will start TPN continue lasix BID -continue TPN on 06/[address] scan in 06/29 #Volume overload - discussed with nephro, due to nutritional deficiency , given improvement in renal fn, no further indication for HD - albumin q6h x24 hrs / Lasix 40mg IV daily - pharmacy consulted for TPN, first dose will be 06/26/24, 4pm -increased lasix to BID on 06/26, #SONI, CKD 3 Baseline creatinine 11.1. Acutely elevated creatinine with poor urine output in the setting of sepsis Hyperkalemic which improved after 1 dialysis session Nephrology following, no further plan for HD with improvement in Cr ARB/spironolactone/NSAIDs held - lasix resumed with albumin - SONI appears to have improved. #Anemia - s/p PRBC transfusion - rpt Hgb stable #IV infiltration - cont conservative management #Hypertension #Grade II diastolic dysfunction Echo 03/2021: LVEF hyperdynamic. Normal PA/RA pressures. Normal RV size and function. Has history of grade 2 diastolic dysfunction - anti Nebivolol held while n.p.o. - off of pressors, BP much improved, monitor while receiving lasix Right-sided colonic stricture, colonic mass Following with GI as an outpatient, and recent colonoscopy as noted. Cause of pneumoperitoneum was identified as perforated gastric ulcer.Continue outpatient follow-up. Path report showed fragments of colonic mucosa with focal ulceration and reactive changes no diagnostic evidence of malignancy identified from sampled tissue. Hypothyroidism Synthroid converted to IV 2/2 NPO Hyperlipidemia Statin held while n.p.o. Admission and Anticipated Discharge Date Admission Date: June 21, 2024 Subjective Patient reports no new symptoms. Review of Systems Review of Systems: All systems reviewed & are unremarkable except as noted in HPI & below Physical Exam Physical Exam: Gen: no acute distress HEENT: NC/AT, MMM, NGT in place Lungs: No wheezing heard omn auscultation CVS: s1s2 nl , RRR Abd: surgical incision c/d/i, nl BS, soft : + ferreira Ext: + edema, RUE infiltrated IV with small areas of denuded skin Psych: pleasant, cooperative Results & Data Results & Data Vital Signs (Past 12 Hours) Vital Signs Temp Pulse Pulse Resp BP Pulse Ox O2 Del Method 06/28/24 20:00 36.7 C 109 H 20 169/84 H 93 Nasal Cannula 06/28/24 20:00 Nasal Cannula 06/28/24 15:15 36.8 C 110 H 19 146/88 H 91 Room Air 06/28/24 15:04 103 H 06/28/24 10:54 93 Nasal Cannula 06/28/24 10:49 36.8 C 108 H 20 153/91 H O2 Flow Rate 06/28/24 20:00 1 06/28/24 20:00 1 06/28/24 15:15 06/28/24 15:04 06/28/24 10:54 1 06/28/24 10:49 PG Care Time/CCT Total # of Minutes Spent Total Time Spent with Patient: Total time spent is greater than 50% in coordination of care (as documented) at patient's floor/unit and/or counseling patient: Coding Level of Care Code 49356 SUB INP/OBS CARE 2/35MIN Diagnoses Perforated gastric ulcer K25.5 SONI (acute kidney injury) N17.9 Septic shock A41.9; R65.21 Hypothyroidism E03.9 HTN (hypertension) I10 Hyperlipidemia E78.5 Colonic mass K63.89
[2024-06-29 07:31] LABS: Hematocrit (blood only) 24.8 % (37.0-47.0); Hemoglobin 8.1 g/dl (12.0-16.0); Mean Corpuscular Hemoglobin 29.9 pg (25.0-34.0); Mean Corpuscular Hgb Conc 32.7 g/dL (32.0-36.0); Mean Corpuscular Volume 91.5 fL (80.0-100.0); Mean Platelet Volume 11.1 fL (9.4-12.4); Platelet Count 251 K/uL (130-400); RDW Coefficient of Variation 13.7 % (11.5-14.5); RDW Standard Deviation 46.3 fL (36.4-46.3); Red Blood Count 2.71 M/uL (4.20-5.40); White Blood Count 13.28 K/ul (4.8-10.8)
[2024-06-29 07:46] LABS: Calcium 8.9 mg/dl (8.6-10.3); Magnesium 2.2 mg/dl (1.7-2.4); Potassium 3.6 mmol/L (3.5-5.1)
[2024-06-29 07:52] LABS: BUN Creatinine Ratio 43.3 (10-20); Creatinine Clr Calc Pharmacy 47.6 ml/min; Est GFR (African American) 65.8 ml/min; Est GFR (Non-African American) 56.7 ml/min; Phosphorus 2.5 mg/dl (2.5-4.9)
--- NOTE | 2024-06-29 07:55 | Surgery Progress Note ---
Date of Service June 29, 2024 Assessment & Plan (1) Perforated gastric ulcer: Plan: s/p ex lap, repair of perforated gastric ulcer and washout on 06/21 WBC 13 (15) , hbg 8.[address] as [address] scan on wednesday questioned possible small leak. she is on picc/tpn for nutrition while npo Keep ANANTH drain x2 in place for now ID on board for recommendations on antibiotics We will order a repeat CT scan with and without contrast today to evaluate for leak, if negative we will consider NGT removal Will re-evaluate incision with surgeon later today, may need to remove a couple of roberto if ongoing leakage from superior portion of wound PT/OT ordered, but needs encouragement to get OOB and ambulate and work on pulmonary toilet (2) Status post exploratory laparotomy: Admission and Anticipated Discharge Date Admission Date: June 21, 2024 Supervising Physician Co-Signing Physician Notes Patient in interventional radiology at time of my rounds, notes and labs and imaging personally reviewed and interpreted, discussed with PA, agree with above. Status post laparotomy with repair of gastric ulcer perforation, possible leak on initial postoperative imaging. Repeat imaging was performed today which I personally reviewed and interpreted and agree with the assessment of no evidence of persistent leak at the repair site. She did have some increasing size of her fluid collections which may explain her white blood cell count over the past few days. IR is currently placing drains and these. We stefanie l remove her NG tube and start her on a clear liquid diet which she will stay on for a few days. Continue PPI. Continue antibiotics. Needs PT/OT and ambulate. Subjective Patient feeling okay. Reports daily improvement in abdominal pain. Has some back pain. Says she had some leakage from wound overnight Physical Exam Physical Exam: awake, alert, no distress Respiratory: normal respiratory effort Gastrointestinal (Abdomen): Inspection/Auscultation: + abdominal surgical incision and + abdominal surgical drain present (R ananth scant output bilious, L ananth serous); abdomen not distended Percussion/Palpation: + abdomen tender (mild haily incisional discomfort) and abdomen soft NGT in place. overall midline incision c/d/i with roberto, there are some areas of very mild erythema that appear 2/2 staple reaction, however I am able to express a small amount of possible purulent material from the superior portion Results & Data Vital Signs (Past 12 Hours) Vital Signs Temp Pulse Resp BP Pulse Ox O2 Del Method O2 Flow Rate 06/29/24 07:24 99.1 F 89 20 148/81 H 94 Nasal Cannula 1 06/29/24 03:30 97.9 F 94 H 20 165/88 H 95 Nasal Cannula 1 06/28/24 22:50 98.1 F 109 H 18 150/91 H 93 Nasal Cannula 06/28/24 20:00 98.1 F 109 H 20 169/84 H 93 Nasal Cannula 1 06/28/24 20:00 Nasal Cannula 1 PG Care Time/CCT Total # of Minutes Spent Total Time Spent with Patient: Total time spent is greater than 50% in coordination of care (as documented) at patient's floor/unit and/or counseling patient: Coding Level of Care Code 99593 Post Operative Follow-Up Diagnoses Perforated gastric ulcer K25.5 Status post exploratory laparotomy Z98.890
[2024-06-29] MEDS: OPTIRAY 320 100ml IV ONE (08:44)
--- NOTE | 2024-06-29 09:41 | CT Scan Report ---
CT abdomen pelvis wo/w con CT DOSE: 2484.26 mGy.cm CLINICAL HISTORY: s/p repair of gastric perf; evaluate for leak TECHNIQUE: Multiaxial CT images of the abdomen and pelvis performed both before and after the intrave nous and oral administration of contrast. A dose lowering technique was utilized adhering to the henry King. COMPARISON STUDY: Abdomen and pelvis CT 06/25/2024. FINDINGS: Patient is status post repair of a gastric ulcer. The nasogastric tube remains within the d istal stomach. Mild thickening of the gastric antrum persists. There. Punctate foci of gas along the posterior wall of the distal gastric antrum near the pylorus best seen on image 131. These have sligh tly decreased in size. No definite extravasation of oral contrast on this study. The abdominal and pe lvic surgical drains remain unchanged in position. Multiple small foci of gas within the left subhepa tic space are similar to the prior study. The upper abdominal loculated fluid collections have slight ly increased in size. This includes a small loculated subcapsular fluid collection along the posterio r medial aspect of the left hepatic lobe on image 82 which measures approximately 4.9 x 2.0 cm. The p eripheral enhancing loculated gas and fluid collection at the anterior midline abutting the left hepa tic lobe is similar in size measuring approximately 7.4 x 1.8 cm. The elongated loculated fluid colle ction along the anterior surface of the left hepatic lobe and abutting the anterior wall of the stoma ch has slightly increased in size. This measures 16.5 x 1.8 cm. Small amount of ascites/fluid collect ion surrounding the spleen has slightly progressed. Developing loculated fluid collections inferior t o the right hepatic lobe have slightly increased in size. No hepatic or splenic masses. The gallbladd er, pancreas, right adrenal gland are unremarkable. There is a stable 2.4 cm left adrenal gland nodul e. The main portal vein is patent. Normal caliber abdominal aorta. No hydronephrosis. There is a left circumaortic renal vein. Mesenteric edema/fat stranding persists. Thickened jejunal loops have sligh tly progressed and may represent a reactive enteritis. The bladder is decompressed by Burton catheter. There is abnormal thickening of the endometrium measuring up to 14 mm. Small bilateral pleural effus ions and lower lobe consolidation similar to the prior study. The heart remains mildly enlarged. Righ t lung base nodules are again noted measuring up to 1 cm. There is a right hip prosthesis. Midline sk in roberto are noted. No acute fractures. Mild circumferential thickening within the ascending colon, transverse colon, descending colon is similar to the prior study and may be reactive to the postoper ative change or underlying peritonitis. No dilated loops of bowel to suggest an obstruction. Normal a ppendix. Stable prominent gastrohepatic lymph nodes. IMPRESSION: 1. Status post repair of a gastric ulcer. The trace extraluminal contrast seen on the prior study is no longer identified. There are few small foci of extraluminal gas adjacent to the distal stomach whi ch have improved. Therefore, this suggests improvement in the underlying gastric perforation. 2. However, there has been interval progression of the loculated fluid collections within the abdomen primarily along the left hepatic lobe. These could represent postoperative seromas or developing abs cesses. Follow-up recommended to ensure resolution. 3. Abnormal endometrial thickening. This could be pathologic in a postmenopausal female. Gynecologic consultation recommended. 4. Progressive thickening within the jejunal loops and colon which may be reactive to the suspected p eritonitis. 5. No evidence for bowel obstruction. 6. Small bilateral pleural effusions and bibasilar densities persist. 7. Nasogastric tube and surgical drains are unchanged in position. 8. Right lung nodules again noted. 9. Additional findings as described above. ACT 112: Negative or not required by law. Electronically signed by: Memo Lozada M.D. 06/29/2024 9:38 AM
[2024-06-29] MEDS ORDERED: ACETAMINOPHEN 1,000 MG/100 ML VIAL IV PRN (13:11)
[2024-06-29] MEDS: fentaNYL citrate PF 100 MCG/2 ML VIAL ONE (14:18)
--- NOTE | 2024-06-29 14:46 | CT Scan Report ---
CT-guided anterior abdominal fluid collection drain placement and aspiration INDICATION: Two anterior abdominal fluid collections noted on 06/29/2024 CT abdomen. Status post gastri c perforation repair PROCEDURE: Procedure and risks were explained. Informed consent was obtained. A final timeout was com pleted. The abdomen was prepped and draped in sterile fashion. 1% buffered lidocaine was utilized for skin anesthesia. Utilizing CT guidance, an 18-gauge Chiba needle was advanced into the lower anterior abdominal fluid collection. A 0.035 Amplatz wire was introduced through the needle and exchanged for an 8 [place] lock ing pigtail catheter. Approximately 8 mL of blood-tinged particulate fluid was aspirated and sent to the lab for analysis. The catheter was sutured to the skin with 3-0 Prolene and placed to gravity bag drainage. Next, an 18-gauge Chiba needle was advanced into the upper anterior abdominal fluid collec tion. Multiple aspirations/guidewire placement only yielded approximately 1 mL of similar fluid. This was also sent to the lab for analysis. This collection also appeared smaller than previously noted e jay in the day. A drain was not placed in this collection due to lack of fluid aspiration. The pat ient tolerated both procedures well. Post CT imaging demonstrated no immediate complication. Vital si gns will be monitored on the floor postprocedure. IMPRESSION: CT-guided anterior abdominal fluid collection drain placement and fluid collection aspira tion as detailed above. Performed, dictated, and signed by Errol Edwards PA-C; to be co-signed by Dr. Memo Lozada. Electronically signed by: Memo Lozada M.D. 06/29/2024 4:02 PM
--- NOTE | 2024-06-29 16:31 | Infectious Disease Progress Nt ---
Date of Service June 29, 2024 Assessment & Plan (1) Status post exploratory laparotomy: (2) Perforated gastric ulcer: Plan This is a 74-year-old female status post total right hip arthroplasty, lumbar stenosis, CKD who presents to the ED with abdominal pain, shortness of breath, lightheadedness. She recently underwent colonoscopy , which showed a possible stricture in her colon.. On 06/20 she had a repeat colonoscopy. At the area of possible stricture, there was many ulcerated areas. GI was able to traverse the area and no stricture was present. There was concern that the ulcerations were either ischemic or due to NSAID use. Biopsies were obtained with cold fo rceps. Postprocedure she developed abdominal pain that persisted throughout the day with some nausea and vomiting. She then began to feel lightheaded and dizzy, then cold and clammy. She presented to the ED for further evaluation. In the ED, she was afebrile, pulse 83, respiratory rate 20, blood pressure 98/55, O2 sats 98% on room air. Labs WBC 7.54, hemoglobin 10.1, hematocrit 33.4, platelets 425, BUN 53, creatinine 3.98, lactate 4--> 3.4,, procalcitonin 23.10---> 25.80. Chest x-ray showed potential free air under the right hemidiaphragm. CTAP showed mild ascites and scattered pneumoperitoneum c/f perforation. Site of perforation not clearly delineated but likely somewhere within the colon given recent colonoscopy. She underwent exploratory laparotomy, gastric washout, repair of the perforated gastric ulcer on 06/21. There was copious amounts of bile-stained purulent fluid in the peritoneum that was sent for culture. Colon did not appear to be perforated. The stomach had a large hole in the anterior portion of the antrum. There was no obvious tumor. She was intubated postop and required low-dose vasopressor support. Course complicated by oliguria but she not require HD as urine output improved. Outpatient Colon pathology showed focal mild epithelial atypia associated with ulceration. No diagnostic evidence of neoplasm/malignancy identified in the samples. She was initially on meropenem---> ertapenem. Repeat CTAP done on 06/25 with oral contrast via NG tube showed a possible small leak. An NG tube is in place. Labs noted for increase leukocytosis, WBC 15.63 on 06/27. Peritoneal fluid cultures finalized with Pseudomonas aeruginosa. Her antibiotics were changed back to meropenem on 06/27. ID consulted for Pseudomonas growing in peritoneal fluid. On my initial exam, she complains of fatigue and abdominal pain.She denies change in bowel or urine. Micro: Peritoneal fluid culture 06/21 Pseudomonas aeruginosa (sensitive not tested) Blood culture 06/22 NGTD Antibiotics Meropenem 06/21 - 06/22, 06/27- ongoing Ertapenem #Perforated gastric ulcer/viscus w/ peritonitis and significant leakage: subsequent development of abscess -Status post ex lap and washout #Pseudomonas Aeruginosa peritonitis #Leukocytosis #Septic shock in the setting of perforated bowel, resolved #PCN allergy: anaphylaxis #Cipro SE; myalgias # [place] on CKD Her worsening leukocytosis likely occurred in the setting of ertapenem, which would not cover Pseudomonas. Pseudomonal coverage started today 06/27 with meropenem. Zosyn is not an option in her case secondary to PCN allergy ( anaphylaxis) . She is not sure if she received Cephalosporins in past, so we will hold off on cefepime/Flagyl for now. She reports muscle aches with Cipro. For complicated abdominal surgery, usually require 4 days of antibiotics once source control achieved. In her case Ertapenem has not covered Pseudomonas and her WBC has increased. Meropenem started 06/27. Will continue antibiotics in her case as now has developed an abscess. WBC and Procal has trended down. 06/28 procal down to 0.88 ( 25.8), WBC 15.31 06/29 Repeat CTAP with interval progression of the loculated fluid collections within the abdomen primarily along the left hepatic lobe. ? postoperative seromas or developing abscesses. WBC 13.28.. Recommendations Continue meropenem 2 g IV q12h(crcl~ 47) for Pseudomonas peritonitis. Expected duration TBD as now has new loculated collection on imaging Follow up IR guided abscess cx. ID will continue to follow Gerardo Storm MD, MPH Infectious Disease [facility], ID Division Call [phone] with questions Admission and Anticipated Discharge Date Admission Date: June 21, 2024 Subjective This patient recommendation is based on a telemedicine consult request which was completed asynchronously through chart review and information provided by the primary physician. The patient was not seen or examined today. The evaluation is consultative in nature and all patient care and treatment decisions can either be accepted or rejected by the patient's primary hospital-based treating physician using their own independent medical judgment for their patient. Time Spent Reviewing Chart: 21 - 30 minutes WBC 13.28 Repeat CTAP with early loculated collection S/P IR drainage aspirate cx Pending Results & Data Vital Signs (Past 12 Hours) Vital Signs Temp Pulse Resp BP Pulse Ox O2 Del Method O2 Flow Rate 06/29/24 16:05 36.5 C 103 H 18 138/75 94 Nasal Cannula 1 06/29/24 14:19 36.6 C 85 17 130/81 96 Nasal Cannula 1 06/29/24 14:04 36.7 C 94 H 17 125/70 94 Nasal Cannula 1 06/29/24 11:38 36.3 C L 100 H 20 149/83 H 93 Nasal Cannula 1 06/29/24 08:00 Nasal Cannula 1 06/29/24 07:24 37.3 C 89 20 148/81 H 94 Nasal Cannula 1 Laboratory Results Laboratory Results - last 48 hr 06/27/24 06/28/24 06/28/24 17:56 00:47 05:56 WBC RBC Hgb Hct MCV MCH MCHC RDW Std Deviation RDW Coeff of Rafael Plt Count MPV Immature Gran % (Auto) Neut % (Auto) Lymph % (Auto) [place] % (Auto) Eos % (Auto) Baso % (Auto) Neut # (Auto) Lymph # (Auto) [place] # (Auto) Eos # (Auto) Baso # (Auto) Immature Gran # (Auto) Sodium Potassium Chloride Carbon Dioxide Anion Gap BUN Creatinine Est Cr Clr Drug Dosing Est GFR ( Amer) Est GFR (Non-Af Amer) BUN/Creatinine Ratio Glucose POC Glucose 135 H 148 H 140 H Calcium Phosphorus Magnesium Procalcitonin 06/28/24 06/28/24 06/28/24 06:28 06:39 11:10 WBC 15.31 H RBC 2.71 L Hgb 8.0 L Hct 24.6 L MCV 90.8 MCH 29.5 MCHC 32.5 RDW Std Deviation 44.9 RDW Coeff of Rafael 13.6 Plt Count 193 MPV 11.1 Immature Gran % (Auto) 1.4 Neut % (Auto) 86.2 Lymph % (Auto) 6.1 [place] % (Auto) 5.2 Eos % (Auto) 0.9 Baso % (Auto) 0.2 Neut # (Auto) 13.20 H Lymph # (Auto) 0.93 L [place] # (Auto) 0.80 H Eos # (Auto) 0.14 Baso # (Auto) 0.03 Immature Gran # (Auto) 0.21 H Sodium 143 Potassium 3.8 Chloride 106 Carbon Dioxide 32 Anion Gap 5 BUN 36 H Creatinine 0.95 Est Cr Clr Drug Dosing 48.6 Est GFR ( Amer) 67.4 Est GFR (Non-Af Amer) 58.2 BUN/Creatinine Ratio 37.9 H Glucose 130 H POC Glucose 135 H Calcium 8.6 Phosphorus 2.4 L Magnesium 2.0 Procalcitonin 0.88 H 06/28/24 06/29/24 06/29/24 17:58 00:37 06:40 WBC 13.28 H RBC 2.71 L Hgb 8.1 L Hct 24.8 L MCV 91.5 MCH 29.9 MCHC 32.7 RDW Std Deviation 46.3 RDW Coeff of Rafael 13.7 Plt Count 251 MPV 11.1 Immature Gran % (Auto) Neut % (Auto) Lymph % (Auto) [place] % (Auto) Eos % (Auto) Baso % (Auto) Neut # (Auto) Lymph # (Auto) [place] # (Auto) Eos # (Auto) Baso # (Auto) Immature Gran # (Auto) Sodium 146 H Potassium 3.6 Chloride 108 H Carbon Dioxide 31 Anion Gap 7 BUN 42 H Creatinine 0.97 Est Cr Clr Drug Dosing 47.6 Est GFR ( Amer) 65.8 Est GFR (Non-Af Amer) 56.7 BUN/Creatinine Ratio 43.3 H Glucose 125 H POC Glucose 143 H 124 H Calcium 8.9 Phosphorus 2.5 Magnesium 2.2 Procalcitonin 06/29/24 06/29/24 06:42 11:56 WBC RBC Hgb Hct MCV MCH MCHC RDW Std Deviation RDW Coeff of Rafael Plt Count MPV Immature Gran % (Auto) Neut % (Auto) Lymph % (Auto) [place] % (Auto) Eos % (Auto) Baso % (Auto) Neut # (Auto) Lymph # (Auto) [place] # (Auto) Eos # (Auto) Baso # (Auto) Immature Gran # (Auto) Sodium Potassium Chloride Carbon Dioxide Anion Gap BUN Creatinine Est Cr Clr Drug Dosing Est GFR ( Amer) Est GFR (Non-Af Amer) BUN/Creatinine Ratio Glucose POC Glucose 128 H 145 H Calcium Phosphorus Magnesium Procalcitonin Diagnostic Findings Microbiology 06/29/24 13:15 Abdomen Gram Stain - Final 06/29/24 13:35 Abdomen, Left Upper Quadrant Gram Stain - Final 06/22/24 17:30 Blood Aerobic Blood Culture - Final No growth in Aerobic bottle after 5 days. 06/22/24 17:30 Blood Anaerobic Blood Culture - Final 06/21/24 21:55 Peritoneal Fluid Gram Stain - Final 06/21/24 21:55 Peritoneal Fluid Aerobic and Anaerobic Culture - Final Pseudomonas aeruginosa Needle Aspiration CT 06/29/24 00:00 CT-guided anterior abdominal fluid collection drain placement and aspiration INDICATION: Two anterior abdominal fluid collections noted on 06/29/2024 CT abdomen. Status post gastric perforation repair PROCEDURE: Procedure and risks were explained. Informed consent was obtained. A final timeout was completed. The abdomen was prepped and draped in sterile fashion. 1% buffered lidocaine was utilized for skin anesthesia. Utilizing CT guidance, an 18-gauge Chiba needle was advanced into the lower anterior abdominal fluid collection. A 0.035 Amplatz wire was introduced through the needle and exchanged for an 8 [place] locking pigtail catheter. Approximately 8 mL of blood-tinged particulate fluid was aspirated and sent to the lab for analysis. The catheter was sutured to the skin with 3-0 Prolene and placed to g ravity bag drainage. Next, an 18-gauge Chiba needle was advanced into the upper anterior abdominal fluid collection. Multiple aspirations/guidewire placement only yielded approximately 1 mL of similar fluid. This was also sent to the lab for analysis. This collection also appeared smaller than previously noted earlier in the day. A drain was not placed in this collection due to lack of fluid aspiration. The patient tolerated both procedures well. Post CT imaging demonstrated no immediate complication. Vital signs will be monitored on the floor postprocedure. IMPRESSION: CT-guided anterior abdominal fluid collection drain placement and fluid collection aspiration as detailed above. Performed, dictated, and signed by Errol Edwards PA-C; to be co-signed by Dr. Memo Lozada. Electronically signed by: Memo Lozada M.D. 06/29/2024 4:02 PM Abdomen/Pelvis CT 06/29/24 07:16 CT abdomen pelvis wo/w con CT DOSE: 2484.26 mGy.cm CLINICAL HISTORY: s/p repair of gastric perf; evaluate for leak TECHNIQUE: Multiaxial CT images of the abdomen and pelvis performed both before and after the intravenous and oral administration of contrast. A dose lowering technique was utilized adhering to the principles of ALARA. COMPARISON STUDY: Abdomen and pelvis CT 06/25/2024. FINDINGS: Patient is status post repair of a gastric ulcer. The nasogastric tube remains within the distal stomach. Mild thickening of the gastric antrum persists. There. Punctate foci of gas along the posterior wall of the distal gastric antrum near the pylorus best seen on image 131. These have slightly decreased in size. No definite extravasation of oral contrast on this study. The abdominal and pelvic surgical drains remain unchanged in position. Multiple small foci of gas within the left subhepatic space are similar to the prior study. The upper abdominal loculated fluid collections have slightly increased in size. This includes a small loculated subcapsular fluid collection along the posterior medial aspect of the left hepatic lobe on image 82 which measures approximately 4.9 x 2.0 cm. The peripheral enhancing loculated gas and fluid collection at the anterior midline abutting the left hepatic lobe is similar in size measuring approximately 7.4 x 1.8 cm. The elongated loculated fluid collection along the anterior surface of the left hepatic lobe and abutting the anterior wall of the stomach has slightly increased in size. This measures 16.5 x 1.8 cm. Small amount of ascites/fluid collection surrounding the spleen has slightly progressed. Developing loculated fluid collections inferior to the right hepatic lobe have slightly increased in size. No hepatic or splenic masses. The gallbladder, pancreas, right adrenal gland are unremarkable. There is a stable 2.4 cm left adrenal gland nodule. The main portal vein is patent. Normal caliber abdominal aorta. No hydronephrosis. There is a left circumaortic renal vein. Mesenteric edema/fat stranding persists. Thickened jejunal loops have slightly progressed and may represent a reactive enteritis. The bladder is decompressed by Burton catheter. There is abnormal thickening of the endometrium measuring up to 14 mm. Small bilateral pleural effusions and lower lobe consolidation similar to the prior study. The heart remains mildly enlarged. Right lung base nodules are again noted measuring up to 1 cm. There is a right hip prosthesis. Midline skin roberto are noted. No acute fractures. Mild circumferential thickening within the ascending colon, transverse colon, descending colon is similar to the prior study and may be reactive to the postoperative change or underlying peritonitis. No dilated loops of bowel to suggest an obstruction. Normal appendix. Stable prominent gastrohepatic lymph no shanice. IMPRESSION: 1. Status post repair of a gastric ulcer. The trace extraluminal contrast seen on the prior study is no longer identified. There are few small foci of extraluminal gas adjacent to the distal stomach which have improved. Therefore, this suggests improvement in the underlying gastric perforation. 2. However, there has been interval progression of the loculated fluid collections within the abdomen primarily along the left hepatic lobe. These could represent postoperative seromas or developing abscesses. Follow-up recommended to ensure resolution. 3. Abnormal endometrial thickening. This could be pathologic in a postmenopausal female. Gynecologic consultation recommended. 4. Progressive thickening within the jejunal loops and colon which may be reactive to the suspected peritonitis. 5. No evidence for bowel obstruction. 6. Small bilateral pleural effusions and bibasilar densities persist. 7. Nasogastric tube and surgical drains are unchanged in position. 8. Right lung nodules again noted. 9. Additional findings as described above. ACT 112: Negative or not required by law. Electronically signed by: Memo Lozada M.D. 06/29/2024 9:38 AM Drainage Catheter Insertion 06/29/24 10:26 CT-guided anterior abdominal fluid collection drain placement and aspiration INDICATION: Two anterior abdominal fluid collections noted on 06/29/2024 CT abdomen. Status post gastric perforation repair PROCEDURE: Procedure and risks were explained. Informed consent was obtained. A final timeout was completed. The abdomen was prepped and draped in sterile fashion. 1% buffered lidocaine was utilized for skin anesthesia. Utilizing CT guidance, an 18-gauge Chiba needle was advanced into the lower anterior abdominal fluid collection. A 0.035 Amplatz wire was introduced through the needle and exchanged for an 8 [place] locking pigtail catheter. Approximately 8 mL of blood-tinged particulate fluid was aspirated and sent to the lab for an alysis. The catheter was sutured to the skin with 3-0 Prolene and placed to gravity bag drainage. Next, an 18-gauge Chiba needle was advanced into the upper anterior abdominal fluid collection. Multiple aspirations/guidewire placement only yielded approximately 1 mL of similar fluid. This was also sent to the lab for analysis. This collection also appeared smaller than previously noted earlier in the day. A drain was not placed in this collection due to lack of fluid aspiration. The patient tolerated both procedures well. Post CT imaging demonstrated no immediate complication. Vital signs will be monitored on the floor postprocedure. IMPRESSION: CT-guided anterior abdominal fluid collection drain placement and fluid collection aspiration as detailed above. Performed, dictated, and signed by Errol Edwards PA-C; to be co-signed by Dr. Memo Lozaad. Electronically signed by: Memo Lozada M.D. 06/29/2024 4:02 PM
[2024-06-29] MEDS: CLINOLIPID 20% IV FAT EMULSION 250 ML IV SCH (17:21)
[2024-06-29] MEDS: CENTRAL TPN IV SCH (17:26)
[2024-06-29] MEDS: [UNRECOGNIZED DRUG - OTHER] IV SCH (17:26)
[2024-06-29] MEDS: HYDROmorphone INJ 0.5 MG/0.5 ML SYR IV PRN (19:33)
--- NOTE | 2024-06-29 21:59 | Hospitalist Progress Note ---
Date of Service June 29, 2024 Assessment & Plan (1) Perforated gastric ulcer: (2) SONI (acute kidney injury): (3) Septic shock: (4) Hypothyroidism: (5) HTN (hypertension): (6) Hyperlipidemia: (7) Colonic mass: Plan 74-year-old female presented to the ER 06/01 with abdominal pain after undergoing a colonoscopy, during which an area of stricture with ulceration was noted. Patient subsequently developed abdominal pain which gradually worsened and was seen in the ER. CTA/P showed mild abdominal ascites, scattered pneumoperitoneum suspicious for bowel perforation. Chest x-ray showed suspected free air under the right diaphragm. Patient presented to the ER fluid respons samantha but initially hypotensive. Patient was taken for ex lap and admitted by surgery that evening. Ex lap identified a perforated gastric ulcer and Uriel patch of perforated ulcer was performed. Patient was subsequently transferred to the ICU for septic shock due to peritonitis with perforated gastric ulcer. She was transiently hypotensive requiring phenylephrine, and was left intubated following her surgical procedure. She is initially on meropenem, was de- escalated to ertapenem. She underwent hemodialysis 06/22 for hyperkalemia and poor output. She clinically progressed and was extubated. Subsequently downgraded from ICU. Due to her medical complexity she was recommended for transfer to medical service at time of downgrade. Time bedside assessment NGT is in place. Patient is nondistressed. Endorses some postoperative abdominal discomfort improved from prior. Denies new/worsening pain. Denies shortness of breath. Denies chest pain. Abdomen is tender surrounding surgical site, but soft and without rebound/guarding. 2X SINCERE drains are intact left with serosanguineous fluid right with serous fluid. #Sepsis #Perforated gastric ulcer - pt was using diclofenac for long time for back pain - avoid NSAIDs 06/21/2024: S/p ex lap with identified perforated gastric ulcer s/p repair - periotoneal fluid culture (06/21): pseudomonas, BCx (06/22) NGTD Initially on meropenem, narrowed, continue ertapenem Surgery following, unfortunately rpt CT done today (06/25) showed small leak, thus decision made to keep pt NPO -ordered PPN on 06/26, central line consent obtained on 06/27, will start TPN continue lasix BID -continue TPN on 06/29 placed on clears. Repeat scan showed no signs of a gastric leak. Went to IR to remove fluid, only about 1 ml of abdominal fluid was removed. #Volume overload - discussed with nephro, due to nutritional deficiency , given improvement in renal fn, no further indication for HD - albumin q6h x24 hrs / Lasix 40mg IV daily - pharmacy consulted for TPN, first dose will be 06/26/24, 4pm -increased lasix to BID on 06/26, #SONI, CKD 3 Baseline creatinine 11.1. Acutely elevated creatinine with poor urine output in the setting of sepsis Hyperkalemic which improved after 1 dialysis session Nephrology following, no further plan for HD with improvement in Cr ARB/spironolactone/NSAIDs held - lasix resumed with albumin - SONI appears to have improved. #Anemia - s/p PRBC transfusion - rpt Hgb stable #IV infiltration - cont conservative management #Hypertension #Grade II diastolic dysfunction Echo 03/2021: LVEF hyperdynamic. Normal PA/RA pressures. Normal RV size and function. Has history of grade 2 diastolic dysfunction - anti Nebivolol held while n.p.o. - off of pressors, BP much improved, monitor while receiving lasix Right-sided colonic stricture, colonic mass Following with GI as an outpatient, and recent colonoscopy as noted. Cause of pneumoperitoneum was identified as perforated gastric ulcer.Continue outpatient follow-up. Path report showed fragments of colonic mucosa with focal ulceration and reactive changes no diagnostic evidence of malignancy identified from sampled tissue. Hypothyroidism Synthroid converted to IV /2 NPO Hyperlipidemia Statin held while n.p.o. Admission and Anticipated Discharge Date Admission Date: June 21, 2024 Subjective 74 yo female reports no new symptoms Review of Systems Review of Systems: All systems reviewed & are unremarkable except as noted in HPI & below Physical Exam Physical Exam: Gen: no acute distress HEENT: NC/AT, MMM, NGT in place Lungs: No wheezing heard omn auscultation CVS: s1s2 nl , RRR Abd: surgical incision c/d/i, nl BS, soft : + ferreira Ext: + edema, RUE infiltrated IV with small areas of denuded skin Psych: pleasant, cooperative Results & Data Results & Data Vital Signs (Past 12 Hours) Vital Signs Temp Pulse Pulse Resp BP Pulse Ox O2 Del Method 06/29/24 20:00 Nasal Cannula 06/29/24 19:44 37.0 C 92 H 20 95 Nasal Cannula 06/29/24 16:05 36.5 C 103 H 18 138/75 94 Nasal Cannula 06/29/24 16:00 100 H 06/29/24 16:00 36.6 C 90 17 148/81 H 98 Nasal Cannula 06/29/24 15:30 36.7 C 98 H 16 142/81 H 100 Nasal Cannula 06/29/24 15:04 36.7 C 16 144/80 H 96 Nasal Cannula 06/29/24 14:34 36.7 C 90 16 142/78 H 96 Room Air 06/29/24 14:19 36.6 C 85 17 130/81 96 Nasal Cannula 06/29/24 14:04 36.7 C 94 H 17 125/70 94 Nasal Cannula 06/29/24 11:38 36.3 C L 100 H 20 149/83 H 93 Nasal Cannula O2 Flow Rate 06/29/24 20:00 1 06/29/24 19:44 2 06/29/24 16:05 1 06/29/24 16:00 06/29/24 16:00 1 06/29/24 15:30 1 06/29/24 15:04 1 06/29/24 14:34 06/29/24 14:19 1 06/29/24 14:04 1 06/29/24 11:38 1 PG Care Time/CCT Total # of Minutes Spent Total Time Spent with Patient: Total time spent is greater than 50% in coordination of care (as documented) at patient's floor/unit and/or counseling patient: Coding Level of Care Code 06546 SUB INP/OBS CARE 2/35MIN Diagnoses Perforated gastric ulcer K25.5 SONI (acute kidney injury) N17.9 Septic shock A41.9; R65.21 Hypothyroidism E03.9 HTN (hypertension) I10 Hyperlipidemia E78.5 Colonic mass K63.89
[2024-06-30] MEDS: HYDROmorphone INJ 0.5 MG/0.5 ML SYR IV PRN (00:54)
[2024-06-30 07:12] LABS: Hematocrit (blood only) 24.2 % (37.0-47.0); Hemoglobin 7.9 g/dl (12.0-16.0); Mean Corpuscular Hemoglobin 29.6 pg (25.0-34.0); Mean Corpuscular Hgb Conc 32.6 g/dL (32.0-36.0); Mean Corpuscular Volume 90.6 fL (80.0-100.0); Mean Platelet Volume 11.1 fL (9.4-12.4); Platelet Count 306 K/uL (130-400); RDW Coefficient of Variation 13.9 % (11.5-14.5); RDW Standard Deviation 46.4 fL (36.4-46.3); Red Blood Count 2.67 M/uL (4.20-5.40); White Blood Count 15.22 K/ul (4.8-10.8)
[2024-06-30 07:18] LABS: BUN Creatinine Ratio 39.1 (10-20); C Reactive Protein 12.25 mg/dl (0-0.5); Calcium 8.4 mg/dl (8.6-10.3); Creatinine Clr Calc Pharmacy 40.4 ml/min; Est GFR (African American) 53.5 ml/min; Est GFR (Non-African American) 46.2 ml/min; Phosphorus 3.4 mg/dl (2.5-4.9); Potassium 3.5 mmol/L (3.5-5.1)
[2024-06-30 07:36] LABS: Basophils # (auto) 0.04 K/uL (0.00-0.20); Basophils % (auto) 0.3 %; Eosinophils # (auto) 0.22 K/uL (0.00-0.50); Eosinophils % (auto) 1.4 %; Immature Granulocytes # (auto) 0.24 K/uL (0.01-0.20); Immature Granulocytes % (auto) 1.6 %; Lymphocytes # (auto) 1.05 K/uL (1.20-3.40); Lymphocytes % (auto) 6.9 %; Monocytes # (auto) 0.72 K/uL (0.11-0.59); Monocytes % (auto) 4.7 %; Neutrophils # (auto) 12.95 K/uL (1.40-6.50); Neutrophils % (auto) 85.1 %; Polychromasia 1+
--- NOTE | 2024-06-30 07:54 | Surgery Progress Note ---
Date of Service June 30, 2024 Assessment & Plan (1) Status post exploratory laparotomy: Plan: s/p ex lap, repair of perforated gastric ulcer and washout on 06/21 WBC uptrended some today to 15 (13), hbg 7.9 (8.1). HRs 80-100s, Temp 98-99F (no true fevers) NGT removed yesterday as repeat CT scan showed no evidence of contrast extravasation from stomach She is on TPN and clear liquids. 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 Status post laparotomy with repair of perforated gastric ulcer. Tolerating clears, no significant increase in drain output. She had an IR drain placed yesterday and another fluid collection aspirated, cultures no growth to date. Tolerating clear liquids, some soreness in her abdomen at drain sites. Passing flatus and having bowel movements. On exam she is afebrile, normotensive with mild tachycardia. Incision with some erythema and drainage in specific areas. JPs minimal serosanguineous. IR drain with scant serosanguineous drainage. WBC 15, up from 13. Cultures from surgery grew Pseudomonas. We will DC her Burton catheter and encourage ambulation. Continue antibiotics and TPN. Will continue clear liquids through the weekend and then on Wednesday we may advance her to full liquids. Likely be able to remove the ANANTH drains next week. Await cultures on IR drain. We may remove a few roberto either this afternoon or tomorrow and proceed with local wound care Subjective Patient feeling a little more tired this AM. Says she feels some abdominal soreness, especially with new drain and some midline soreness with coughing. She is tolerating small amounts of clears, no nausea/vomiting. + gas and BM's. Not OOB yesterday as she says it was a busy day. Physical Exam Physical Exam: awake/alert, no distress Respiratory: on supplemental O2 Gastrointestinal (Abdomen): Inspection/Auscultation: + abdominal surgical drain present (L ananth serous, IR drain serosang, R ANANTH scant amount possibly bilious); abdomen not distended + abdomen tender (mild haily incisional d iscomfort) and abdomen soft ; overall midline incision c/d/i with roberto, there are some areas of very mild erythema that appear 2/2 staple reaction, however I am able to express a small amount of possible purulent material from the mid/superior portion Results & Data Vital Signs (Past 12 Hours) Vital Signs Temp Pulse Pulse Resp BP Pulse Ox O2 Del Method 06/30/24 07:25 99.0 F 93 H 18 136/74 94 Nasal Cannula 06/30/24 03:05 99.0 F 99 H 18 164/85 H 93 Nasal Cannula 06/30/24 00:00 89 06/29/24 22:44 99.3 F 91 H 18 155/83 H 95 Nasal Cannula 06/29/24 20:00 Nasal Cannula 06/29/24 19:44 98.6 F 92 H 20 95 Nasal Cannula O2 Flow Rate 06/30/24 07:25 1 06/30/24 03:05 2 06/30/24 00:00 06/29/24 22:44 2 06/29/24 20:00 1 06/29/24 19:44 2 PG Care Time/CCT Total # of Minutes Spent Total Time Spent with Patient: Total time spent is greater than 50% in coordination of care (as documented) at patient's floor/unit and/or counseling patient: Coding Level of Care Code 40273 Post Operative Follow-Up Diagnoses Status post exploratory laparotomy Z98.890 Perforated gastric ulcer K25.5
--- NOTE | 2024-06-30 13:14 | Infectious Disease Progress Nt ---
Date of Service June 30, 2024 Assessment & Plan (1) Status post exploratory laparotomy: (2) Perforated gastric ulcer: Plan This is a 74-year-old female status post total right hip arthroplasty, lumbar stenosis on Nsaids, LE neuropathy, CKD who presents to the ED with abdominal pain, shortness of breath, lightheadedness. She recently underwent colonoscopy , which showed a possible stricture in her colon. On 06/20, she had a repeat colonoscopy. At the area of possible stricture, there was many ulcerated areas. GI was able to traverse the area and no stricture was present. There was concern that the ulcerations were either ischemic or due to NSAID use. Biopsies were obtained with cold forceps. Postprocedure she developed abdominal pain that persisted throughout the day with some nausea and vomiting. She began to feel lightheaded / dizzy, then cold and clammy. She presented to the ED for further evaluation. In the ED, she was afebrile, pulse 83, respiratory rate 20, blood pressure 98/55, O2 sats 98% on room air. Labs WBC 7.54, hemoglobin 10.1, hematocrit 33.4, platelets 425, BUN 53, creatinine 3.98, lactate 4--> 3.4, procalcitonin 23.10---> 25.80. Chest x-ray showed potential free air under the right hemidiaphragm. CTAP showed mild ascites and scattered pneumoperitoneum c/f perforation. The site of perforation was not clearly delineated but likely somewhere within the colon given recent colonoscopy. She underwent exploratory laparotomy, gastric washout, repair of the perforated gastric ulcer on 06/21. There was copious amounts of bile-stained purulent fluid in the peritoneum that was sent for culture. Colon did not appear to be perforated. The stomach had a large hole in the anterior portion of the antrum. There was no obvious tumor. She was intubated postop and required low-dose vasopressor support. Course complicated by oliguria but she not require HD as urine output improved. Outpatient Colon pathology showed focal mild epithelial atypia associated with ulceration. No diagnostic evidence of neoplasm/malignancy identified in the samples. She was initially on meropenem---> ertapenem. Repeat CTAP done on 06/25 with oral contrast via NG tube showed a possible small leak. An NG tube was placed. Labs noted for increase leukocytosis, WBC 15.63 on 06/27. Peritoneal fluid cultures finalized with Pseudomonas aeruginosa. Her antibiotics were changed back to meropenem on 06/27. ID consulted for Pseudomonas growing in pe ritoneal fluid. On my initial exam, she complains of fatigue and abdominal pain.She denies change in bowel or urine. Micro: Peritoneal fluid culture 06/21 Pseudomonas aeruginosa (peoples S) Blood culture 06/22 NG Aspiration culture 06/29 #1 NGTD Aspiration culture 06/29 #2 NGTD Antibiotics Meropenem 06/21 - 06/22, 06/27- ongoing Ertapenem #Perforated gastric ulcer/viscus w/ peritonitis and significant leakage: subsequent development of abscess vs post op seroma -Status post ex lap and washout an subsequent collection drain placement #Pseudomonas Aeruginosa peritonitis #Leukocytosis #Septic shock in the setting of perforated bowel, resolved #PCN allergy: anaphylaxis #Cipro SE; myalgias # [place] on CKD Her initial worsening leukocytosis likely occurred in the setting of ertapenem, which would not cover Pseudomonas. Pseudomonal coverage restarted on 06/27 with meropenem. Zosyn is not an option in her case secondary to PCN allergy ( anaphylaxis) . She is not sure if she received Cephalosporins in past, so we will hold off on cefepime/Flagyl for now. She reports muscle aches with Cipro. For complicated abdominal surgery, usually require 4 days of antibiotics once source control achieved. She will need a longer course of antibiotics as she appears to have deveped an abscess vs post op seroma. Procal has trended down to 0.53. WBC initially trended down but now increasing post IR guided drain placement. . 06/28 procal down to 0.88 ( 25.8), WBC 15.31 06/29 Repeat CTAP with interval progression of the loculated fluid collections within the abdomen primarily along the left hepatic lobe. ? postoperative seromas or developing abscesses. WBC 13.28. Sp IR for collection aspiration with drain placement 06/30 feels well, WBC up to 15.22, procal down to 0.53, crp 12.25. Collection cx NGTD. Recommendations Continue meropenem 2 g IV q12h (crcl~ 40) for Pseudomonas peritonitis. Expected duration TBD as now has new loculated collection on imaging. Anticipate at least 2 weeks of treatment from drainage ( 06/29) but final duration will depend on resolution of ? abscess on imaging Follow up aspiration culture from 06/29 and adjust antibiotics if needed. Monitor WBC ID will continue to follow. [facility] will not round over the weekend. Call [phone] with questions Gerardo Storm MD, MPH Infectious Disease [facility], ID Division Admission and Anticipated Discharge Date Admission Date: June 21, 2024 Subjective Subsequent visit was provided via telemedicine using two-way real-time interactive telecommunication between the patient and the telemedicine provider. For the duration of the visit, the provider was performing the assessment from a different facility than the patient. This includesuse of bluetooth stethoscope forauscultationperformed by the telepresenter that the telemedicine provider can hear if described in the physical exam. [employer] contact information: Please call [facility] Call Center . (Phone Number For Physician Use Only) After establishing a telemedicine visit, patient was: Patient was verified with two unique identifiers Time Spent with Patient: Subsequent => 25 min She has less abdominal pain Complains that she is having some breakthrough of her chronic spinal stenosis and neuropathic pain on current pain regimen, but abdominal pain is controlled Nausea controlled Afebrile Abscess drain in place and has some discomfort at site; Asp cx NGTD WBC 15.22 Physical Exam Physical Exam: NAD, on RA, sp NGT removal NCAT, anicteric sclera Softly distended abdomen, mild TTP at surgical incision with roberto and mild pinkish surrounding. Removed dressing and dried serosanguineous drainage on dressing. Right SINCERE drain with dark fluid. Left SINCERE drain with serosanguineous fluid. New RUQ collection drain with serosanguineou drainage. Burton in place with yellow urine. + BL LE edema( improved) AAO*3 Normal mood Results & Data Vital Signs (Past 12 Hours) Vital Signs Temp Pulse Resp BP Pulse Ox O2 Del Method O2 Flow Rate 06/30/24 11:06 36.9 C 104 H 18 143/84 H 92 Room Air 06/30/24 09:40 95 Room Air 06/30/24 08:49 Nasal Cannula 06/30/24 07:25 37.2 C 93 H 18 136/74 94 Nasal Cannula 1 06/30/24 03:05 37.2 C 99 H 18 164/85 H 93 Nasal Cannula 2 Laboratory Results 06/29/24 13:15 Gram Stain - Final Abdomen Aerobic and Anaerobic Culture - Preliminary No growth to date. 06/29/24 13:35 Gram Stain - Final Abdomen, Left Upper Quadrant Aerobic and Anaerobic Culture - Preliminary No growth to date. 06/30/24 06/30/24 06/30/24 12:11 06:19 06:18 WBC 15.22 H RBC 2.67 L Hgb 7.9 L Hct 24.2 L MCV 90.6 MCH 29.6 MCHC 32.6 RDW Std Deviation 46.4 H RDW Coeff of Rafael 13.9 Plt Count 306 MPV 11.1 Immature Gran % (Auto) 1.6 Neut % (Auto) 85.1 Lymph % (Auto) 6.9 [place] % (Auto) 4.7 Eos % (Auto) 1.4 Baso % (Auto) 0.3 Neut # (Auto) 12.95 H Lymph # (Auto) 1.05 L [place] # (Auto) 0.72 H Eos # (Auto) 0.22 Baso # (Auto) 0.04 Immature Gran # (Auto) 0.24 H Polychromasia 1+ Sodium 143 Potassium 3.5 Chloride 106 Carbon Dioxide 30 Anion Gap 7 BUN 45 H Creatinine 1.15 Est Cr Clr Drug Dosing 40.4 Est GFR ( Amer) 53.5 Est GFR (Non-Af Amer) 46.2 BUN/Creatinine Ratio 39.1 H Glucose 121 H POC Glucose 125 H 131 H Calcium 8.4 L Phosphorus 3.4 Magnesium 2.0 C-Reactive Protein 12.25 H B-Natriuretic Peptide 76 Procalcitonin 0.53 H 06/30/24 06/29/24 00:37 18:40 WBC RBC Hgb Hct MCV MCH MCHC RDW Std Deviation RDW Coeff of Rafael Plt Count MPV Immature Gran % (Auto) Neut % (Auto) Lymph % (Auto) [place] % (Auto) Eos % (Auto) Baso % (Auto) Neut # (Auto) Lymph # (Auto) [place] # (Auto) Eos # (Auto) Baso # (Auto) Immature Gran # (Auto) Polychromasia Sodium Potassium Chloride Carbon Dioxide Anion Gap BUN Creatinine Est Cr Clr Drug Dosing Est GFR ( Amer) Est GFR (Non-Af Amer) BUN/Creatinine Ratio Glucose POC Glucose 127 H 119 H Calcium Phosphorus Magnesium C-Reactive Protein B-Natriuretic Peptide Procalcitonin Diagnostic Findings Needle Aspiration CT 06/29/24 00:00 CT-guided anterior abdominal fluid collection drain placement and aspiration INDICATION: Two anterior abdominal fluid collections noted on 06/29/2024 CT abdomen. Status post gastric perforation repair PROCEDURE: Procedure and risks were explained. Informed consent was obtained. A final timeout was completed. The abdomen was prepped and draped in sterile fashion. 1% buffered lidocaine was utilized for skin anesthesia. Utilizing CT guidance, an 18-gauge Chiba needle was advanced into the lower anterior abdominal fluid collection. A 0.035 Amplatz wire was introduced through the needle and exchanged for an 8 Spanish locking pigtail catheter. Approximately 8 mL of blood-tinged particulate fluid was aspirated and sent to the lab for analysis. The catheter was sutured to the skin with 3-0 Prolene and placed to gravity bag drainage. Next, an 18-gauge Chiba needle was advanced into the upper anterior abdominal fluid collection. Multiple aspirations/guidewire placement only yielded approximately 1 mL of similar fluid. This was also sent to the lab for analysis. This collection also appeared smaller than previously noted earlier in the day. A drain was not placed in this collection due to lack of fluid aspiration. The patient tolerated both procedures well. Post CT imaging demonstrated no immediate complication. Vital signs will be monitored on the floor postprocedure. IMPRESSION: CT-guided anterior abdominal fluid collection drain placement and fluid collection aspiration as detailed above. Performed, dictated, and signed by Errol Edwards PA-C; to be co-signed by Dr. Memo Lozada. Electronically signed by: Memo Lozada M.D. 06/29/2024 4:02 PM Abdomen/Pelvis CT 06/29/24 07:16 CT abdomen pelvis wo/w con CT DOSE: 2484.26 mGy.cm CLINICAL HISTORY: s/p repair of gastric perf; evaluate for leak TECHNIQUE: Multiaxial CT images of the abdomen and pelvis performed both before and after the intravenous and oral administration of contrast. A dose lowering technique was utilized adhering to the principles of ALARA. COMPARISON STUDY: Abdomen and pelvis CT 06/25/2024. FINDINGS: Patient is status post repair of a gastric ulcer. The nasogastric tube remains within the distal stomach. Mild thickening of the gastric antrum persists. There. Punctate foci of gas along the posterior wall of the distal gastric antrum near the pylorus best seen on image 131. These have slightly decreased in size. No definite extravasation of oral contrast on this study. The abdominal and pelvic surgical drains remain unchanged in position. Multiple small foci of gas within the left subhepatic space are similar to the prior study. The upper abdominal loculated fluid collections have slightly increased in size. This includes a small loculated subcapsular fluid collection along the posterior medial aspect of the left hepatic lobe on image 82 which measures approximately 4.9 x 2.0 cm. The peripheral enhancing loculated gas and fluid collection at the anterior midline abutting the left hepatic lobe is similar in size measuring approximately 7.4 x 1.8 cm. The elongated loculated fluid collection along the anterior surface of the left hepatic lobe and abutting the anterior wall of the stomach has slightly increased in size. This measures 16.5 x 1.8 cm. Small amount of ascites/fluid collection surrounding the spleen has slightly progressed. Developing loculated fluid collections inferior to the right hepatic lobe have slightly increased in size. No hepatic or splenic masses. The gallbladder, pancreas, right adrenal gland are unremarkable. There is a stable 2.4 cm left adrenal gland nodule. The main portal vein is patent. Normal caliber abdominal aorta. No hydronephrosis. There is a left circumaortic renal vein. Mesenteric edema/fat stranding persists. Thickened jejunal loops have slightly progressed and may represent a reactive enteritis. The bladder is decompressed by Burton catheter. There is abnormal thickening of the endometrium measuring up to 14 mm. Small bilateral pleural effusions and lower lobe consolidation similar to the prior study. The heart remains mildly enlarged. Right lung base nodules are again noted measuring up to 1 cm. There is a right hip prosthesis. Midline skin roberto are noted. No acute fractures. Mild circumferential thickening within the ascending colon, transverse colon, descending colon is similar to the prior study and may be reactive to the postoperative change or underlying peritonitis. No dilated loops of bowel to suggest an obstruction. Normal appendix. Stable prominent gastrohepatic lymph nodes. IMPRESSION: 1. Status post repair of a gastric ulcer. The trace extraluminal contrast seen on the prior study is no longer identified. There are few small foci of extraluminal gas adjacent to the distal stomach which have improved. Therefore, this suggests improvement in the underlying gastric perforation. 2. However, there has been interval progression of the loculated fluid collecti ons within the abdomen primarily along the left hepatic lobe. These could represent postoperative seromas or developing abscesses. Follow-up recommended to ensure resolution. 3. Abnormal endometrial thickening. This could be pathologic in a postmenopausal female. Gynecologic consultation recommended. 4. Progressive thickening within the jejunal loops and colon which may be reactive to the suspected peritonitis. 5. No evidence for bowel obstruction. 6. Small bilateral pleural effusions and bibasilar densities persist. 7. Nasogastric tube and surgical drains are unchanged in position. 8. Right lung nodules again noted. 9. Additional findings as described above. ACT 112: Negative or not required by law. Electronically signed by: Memo Lozada M.D. 06/29/2024 9:38 AM Drainage Catheter Insertion 06/29/24 10:26 CT-guided anterior abdominal fluid collection drain placement and aspiration INDICATION: Two anterior abdominal fluid collections noted on 06/29/2024 CT abdomen. Status post gastric perforation repair PROCEDURE: Procedure and risks were explained. Informed consent was obtained. A final timeout was completed. The abdomen was prepped and draped in sterile fashion. 1% buffered lidocaine was utilized for skin anesthesia. Utilizing CT guidance, an 18-gauge Chiba needle was advanced into the lower anterior abdominal fluid collection. A 0.035 Amplatz wire was introduced through the needle and exchanged for an 8 Spanish locking pigtail catheter. Approximately 8 mL of blood-tinged particulate fluid was aspirated and sent to the lab for analysis. The catheter was sutured to the skin with 3-0 Prolene and placed to gravity bag drainage. Next, an 18-gauge Chiba needle was advanced into the upper anterior abdominal fluid collection. Multiple aspirations/guidewire placement only yielded approximately 1 mL of similar fluid. This was also sent to the lab for analysis. This collection also appeared smaller than previously noted earlier in the day. A drain was not placed in this collection due to lack of fluid aspiration. The patient tolerated both procedures well. Post CT imaging demonstrated no immediate complication. Vital signs will be monitored on the floor postprocedure. IMPRESSION: CT-guided anterior abdominal fluid collection drain placement and fluid collection aspiration as detailed above. Performed, dictated, and signed by Errol Edwards PA-C; to be co-signed by Dr. Memo Lozada. Electronically signed by: Memo Lozada M.D. 06/29/2024 4:02 PM Medications Administered Home Medications Medication Instructions Recorded Confirmed Last Taken antiarthritic combination no.2 900 450 mg PO BID 03/25/20 06/21/24 05/04/24 mg tablet (glucosamine-chondroitin) ascorbate calcium (vitamin C) 500 500 mg PO QAM 03/25/20 06/21/24 05/08/24 mg tablet cholecalciferol (vitamin D3) 50 50 mcg PO BID 03/25/20 06/21/24 05/08/24 mcg (2,000 unit) tablet coQ10 (ubiquinol) 200 mg capsule 200 mg PO HS 03/25/20 06/21/24 05/04/24 multivitamin 1 tab PO QAM 03/25/20 06/21/24 05/04/24 Wheeled Walker #1 ea 10/13/22 06/21/24 Unknown iodine 150 mcg tablet (Kelp 150 mcg PO QAM 10/16/22 06/21/24 05/08/24 (iodine)) magnesium 250 mg tablet 250 mg PO HS 10/16/22 06/21/24 05/07/24 diclofenac potassium 50 mg tablet 50 mg PO TID #270 tabs 10/13/23 06/21/24 05/07/24 furosemide 40 mg tablet 40 mg PO DAILY #90 tabs 10/13/23 06/21/24 05/07/24 alprazolam 0.5 mg tablet (Xanax) 0.5 mg PO HS #90 tabs 04/12/24 06/21/24 05/08/24 levothyroxine 75 mcg tablet 75 mcg PO QAM #90 tabs 04/19/24 06/21/24 05/09/24 (Synthroid) acetaminophen 500 mg capsule 1,000 mg PO TID PRN Pain 04/26/24 06/21/24 05/09/24 calcium carbonate (Calcium 600) 600 mg PO HS 04/26/24 06/21/24 05/08/24 clindamycin HCl 300 mg capsule 600 mg PO UD PRN dental procedure 04/26/24 06/21/24 Unknown lysine 500 mg tablet 500 mg PO QAM Cold Sores 04/26/24 06/21/24 05/08/24 rhubarb root extract 4 mg tablet 4 mg PO QAM 04/26/24 06/21/24 05/04/24 (Estroven Complete Menopause Relief) sennosides 8.6 mg-docusate sodium 1 tab-cap PO DAILY PRN Constipation 04/26/24 06/21/24 Unknown 50 mg tablet (Senokot-S) fluticasone propionate 50 2 spray intranasal QAM PRN sinus 05/16/24 06/21/24 Unknown mcg/actuation nasal congestion #32 grams spray,suspension allopurinol 100 mg tablet 100 mg PO HS #90 tabs 05/17/24 06/21/24 Unknown pramipexole 0.5 mg tablet 0.5 mg PO HS #90 tabs 05/18/24 06/21/24 Unknown telmisartan 80 mg tablet (Micardis) 80 mg PO HS 30 days #90 tabs 05/18/24 06/21/24 Unknown spironolactone 25 mg tablet 25 mg PO QAM #90 tabs 05/22/24 06/21/24 Unknown nebivolol 10 mg tablet 10 mg PO QAM #90 tabs 06/07/24 06/21/24 Unknown oxycodone 5 mg tablet 5 - 10 mg (1 - 2 x 5 mg) PO Q6 PRN 06/08/24 06/21/24 Unknown pain #120 tabs atorvastatin 10 mg tablet 10 mg PO .every other day #90 tabs 06/12/24 06/21/24 Unknown omega-3 fatty acids 1,000 mg 1,000 mg PO DAILY 06/21/24 06/21/24 Unknown capsule vitamin B complex 1 tab PO DAILY 06/21/24 06/21/24 Unknown Active Medications Generic Name Dose Route Start Last Admin Trade Name Freq PRN Reason Stop Dose Admin Albuterol 3 ml 06/27/24 04:24 06/27/24 13:04 Albut/Ipratrop 3mg/0.5mg Neb 3 Ml Vial NEB 07/27/24 04:23 3 ml Q6R PRN Administration Shortness Of Breath Or Wheezing Protocol Dextrose 25 - 50 ml 06/23/24 13:46 06/23/24 13:49 Dextrose 50% 50 Ml Syringe IV 07/23/24 13:45 25 ml UD PRN Administration Hypoglycemia Protocol Protocol Fluticasone Propionate 2 sprays 06/27/24 21:00 06/29/24 20:10 Fluticasone Propionate Na Spr 16 Gm Btl NA 07/27/24 20:59 2 sprays Q24H ELSY Administration Furosemide 40 mg 06/26/24 21:00 06/30/24 08:33 Furosemide 40 Mg/4 Ml Vial IV 07/26/24 20:59 40 mg BID ELSY Administration Hydromorphone HCl 0.5 mg 06/29/24 13:12 06/30/24 09:50 Hydromorphone Inj 0.5 Mg/0.5 Ml Syr IV 07/10/24 12:29 0.5 mg Q4H PRN Administration Severe Pain (Scale 7, 8, 9,10) Hydromorphone HCl 0.25 mg 06/29/24 13:12 06/30/24 00:54 Hydromorphone Inj 0.5 Mg/0.5 Ml Syr IV 07/13/24 13:11 0.25 mg Q4H PRN Administration Moderate Pain (Scale 4, 5, 6) Pantoprazole Sodium 40 mg/ 10 mls @ 5 mls/min 06/23/24 21:00 06/30/24 08:35 Syringe IV 07/23/24 20:59 5 mls/min BID@0900,2100 ELSY Administration Levothyroxine Sodium 52.5 mcg/ 2.625 mls @ 2 mls/min 06/28/24 09:00 06/28/24 09:09 Syringe IV 07/28/24 08:59 2 mls/min Q3D@0900 ELSY Administration Protocol Meropenem 2,000 mg/ Sodium 100 mls @ 200 mls/hr 06/27/24 12:00 06/30/24 13:09 Chloride IV 07/07/24 11:59 Infused Q12H ELSY Infusion Protocol Amino Acids/Dextrose 1,063.2 1,063.2 mls @ 44.3 mls/hr 06/29/24 16:00 06/29/24 17:26 ml/ Nutrition (Parenteral) IV 06/30/24 15:59 44.3 mls/hr .Q24H ELSY Administration Protocol Miscellaneous 1 each 06/26/24 22:00 06/29/24 23:00 Stop Clinolipid N/A 07/26/24 21:59 1 each Q24H ELSY Administration Ondansetron HCl 4 mg 06/21/24 23:40 06/26/24 11:33 Ondansetron Inj 2 Mg/Ml 2 Ml Vial IV 07/21/24 23:39 4 mg Q6H PRN Administration Nausea And Vomiting
[2024-06-30] MEDS: CENTRAL TPN IV SCH (15:27)
[2024-06-30] MEDS: [UNRECOGNIZED DRUG - OTHER] IV SCH (15:27)
[2024-06-30] MEDS: CLINOLIPID 20% IV FAT EMULSION 250 ML IV SCH (15:28)
[2024-06-30] MEDS: ACETAMINOPHEN 1,000 MG/100 ML VIAL IV SCH (17:39)
[2024-06-30] MEDS: oxyCODONE HCL IR 5 MG TAB (IMMEDIATE RELEASE) PO PRN (18:01)
--- NOTE | 2024-07-01 05:01 | Surgery Progress Note ---
Date of Service July 01, 2024 Assessment & Plan (1) Perforated gastric ulcer: Plan: Status post exploratory laparotomy with Uriel patch on 06/21/2024 (postop day #10) Continue analgesics as needed Continue antiemetics if needed Maintain patient on clear liquid diet for the present time (Surgeon performing operation wanted this diet continued through the weekend) Maintain patient on parenteral nutrition until oral intake can be advanced further and is deemed adequate Increase mobilization as able Continue SINCERE drains and IR drains to self suction Cultures taken at time of operation grew Pseudomonas; continue antibiotics in the form of meropenem Cultures from IR drain have no growth to date ID consultation noted and duration of antibiotics to be determined based on pending microbiology and her clinical response Continue twice daily Protonix Check a.m. labs and available SCDs are in place for DVT prevention, no chemical means due to her perforated ulcer as above. feeling ok. madan clears. dressings changed. wound looks good. stay on clears for now. Admission and Anticipated Discharge Date Admission Date: June 21, 2024 Subjective Patient is resting comfortably in bed. She denies any nausea or vomiting and is tolerating clear liquids. Since her surgery she has had a bowel movement and is passing flatus. She has been out of bed to chair but has not ambulated much. She denies any shortness of breath. I discussed with warehouse worker 2nd shift nurse attending the patient who verified the above information and did not voice any additional concerns Physical Exam Gastrointestinal (Abdomen): Abdomen is soft and nondistended. There is minimal pain with palpation. Midline incision is intact with roberto with a small amount of serous drainage. Patient has 2 SINCERE drains draining small amounts of serous fluid. She has an interventional radiology drain draining a small amount of some rust colored fluid. Results & Data Vital Signs (Past 12 Hours) Vital Signs Temp Pulse Resp BP Pulse Ox O2 Del Method 07/01/24 04:00 36.7 C 102 H 18 128/77 95 Room Air 06/30/24 23:42 36.6 C 103 H 18 137/78 93 Room Air 06/30/24 20:00 36.8 C 89 18 143/80 H 94 Room Air 06/30/24 20:00 Room Air PG Care Time/CCT Total # of Minutes Spent Total Time Spent with Patient: Total time spent is greater than 50% in coordination of care (as documented) at patient's floor/unit and/or counseling patient: Coding Level of Care Code 56906 Post Operative Follow-Up Diagnoses Perforated gastric ulcer K25.5
[2024-07-01 06:36] LABS: Basophils # (auto) 0.03 K/uL (0.00-0.20); Basophils % (auto) 0.2 %; Eosinophils # (auto) 0.18 K/uL (0.00-0.50); Eosinophils % (auto) 1.2 %; Hematocrit (blood only) 23.8 % (37.0-47.0); Hemoglobin 7.8 g/dl (12.0-16.0); Immature Granulocytes # (auto) 0.14 K/uL (0.01-0.20); Immature Granulocytes % (auto) 0.9 %; Lymphocytes # (auto) 1.01 K/uL (1.20-3.40); Lymphocytes % (auto) 6.8 %; Mean Corpuscular Hemoglobin 29.9 pg (25.0-34.0); Mean Corpuscular Hgb Conc 32.8 g/dL (32.0-36.0); Mean Corpuscular Volume 91.2 fL (80.0-100.0); Mean Platelet Volume 10.9 fL (9.4-12.4); Monocytes # (auto) 0.78 K/uL (0.11-0.59); Monocytes % (auto) 5.2 %; Neutrophils # (auto) 12.75 K/uL (1.40-6.50); Neutrophils % (auto) 85.7 %; Platelet Count 324 K/uL (130-400); RDW Coefficient of Variation 13.8 % (11.5-14.5); RDW Standard Deviation 46.2 fL (36.4-46.3); Red Blood Count 2.61 M/uL (4.20-5.40); White Blood Count 14.89 K/ul (4.8-10.8)
--- NOTE | 2024-07-01 06:42 | Hospitalist Progress Note ---
Date of Service June 30, 2024 Assessment & Plan (1) Perforated gastric ulcer: (2) SONI (acute kidney injury): (3) Septic shock: (4) Hypothyroidism: (5) HTN (hypertension): (6) Hyperlipidemia: (7) Colonic mass: Plan 74-year-old female presented to the ER 06/01 with abdominal pain after undergoing a colonoscopy, during which an area of stricture with ulceration was noted. Patient subsequently developed abdominal pain which gradually worsened and was seen in the ER. CTA/P showed mild abdominal ascites, scattered pneumoperitoneum suspicious for bowel perforation. Chest x-ray showed suspected free air under the right diaphragm. Patient presented to the ER fluid respons samantha but initially hypotensive. Patient was taken for ex lap and admitted by surgery that evening. Ex lap identified a perforated gastric ulcer and Uriel patch of perforated ulcer was performed. Patient was subsequently transferred to the ICU for septic shock due to peritonitis with perforated gastric ulcer. She was transiently hypotensive requiring phenylephrine, and was left intubated following her surgical procedure. She is initially on meropenem, was de- escalated to ertapenem. She underwent hemodialysis 06/22 for hyperkalemia and poor output. She clinically progressed and was extubated. Subsequently downgraded from ICU. Due to her medical complexity she was recommended for transfer to medical service at time of downgrade. Time bedside assessment NGT is in place. Patient is nondistressed. Endorses some postoperative abdominal discomfort improved from prior. Denies new/worsening pain. Denies shortness of breath. Denies chest pain. Abdomen is tender surrounding surgical site, but soft and without rebound/guarding. 2X SINCERE drains are intact left with serosanguineous fluid right with serous fluid. #Sepsis #Perforated gastric ulcer - pt was using diclofenac for long time for back pain - avoid NSAIDs 06/21/2024: S/p ex lap with identified perforated gastric ulcer s/p repair - periotoneal fluid culture (06/21): pseudomonas, BCx (06/22) NGTD Initially on meropenem, narrowed, continue ertapenem Surgery following, unfortunately rpt CT done today (06/25) showed small leak, thus decision made to keep pt NPO -ordered PPN on 06/26, central line consent obtained on 06/27, will start TPN continue lasix BID -continue TPN on 06/29 placed on clears. Repeat scan showed no signs of a gastric leak. Went to IR to remove fluid, only about 1 ml of abdominal fluid was removed. -will continue tpn on 07/01 continue to monitor blood work #Volume overload - discussed with nephro, due to nutritional deficiency , given improvement in renal fn, no further indication for HD - albumin q6h x24 hrs / Lasix 40mg IV daily - pharmacy consulted for TPN, first dose will be 06/26/24, 4pm -increased lasix to BID on 06/26, #SONI, CKD 3 Baseline creatinine 11.1. Acutely elevated creatinine with poor urine output in the setting of sepsis Hyperkalemic which improved after 1 dialysis session Nephrology following, no further plan for HD with improvement in Cr ARB/spironolactone/NSAIDs held - lasix resumed with albumin - SONI appears to have improved. #Anemia - s/p PRBC transfusion - rpt Hgb stable #IV infiltration - cont conservative management #Hypertension #Grade II diastolic dysfunction Echo 03/2021: LVEF hyperdynamic. Normal PA/RA pressures. Normal RV size and function. Has history of grade 2 diastolic dysfunction - anti Nebivolol held while n.p.o. - off of pressors, BP much improved, monitor while receiving lasix Right-sided colonic stricture, colonic mass Following with GI as an outpatient, and recent colonoscopy as noted. Cause of pneumoperitoneum was identified as perforated gastric ulcer.Continue outpatient follow-up. Path report showed fragments of colonic mucosa with focal ulceration and reactive changes no diagnostic evidence of malignancy identified from sampled tissue. Hypothyroidism Synthroid converted to IV /2 NPO Hyperlipidemia Statin held while n.p.o. Admission and Anticipated Discharge Date Admission Date: June 21, 2024 Subjective 74 yo female reports no new symptoms Review of Systems Review of Systems: All systems reviewed & are unremarkable except as noted in HPI & below Physical Exam Physical Exam: Gen: no acute distress HEENT: NC/AT, MMM, NGT in place Lungs: No wheezing heard omn auscultation CVS: s1s2 nl , RRR Abd: surgical incision c/d/i, nl BS, soft : + ferreira Ext: + edema, RUE infiltrated IV with small areas of denuded skin Psych: pleasant, cooperative Results & Data Results & Data Vital Signs (Past 12 Hours) Vital Signs Temp Pulse Resp BP Pulse Ox O2 Del Method 07/01/24 04:00 36.7 C 102 H 18 128/77 95 Room Air 06/30/24 23:42 36.6 C 103 H 18 137/78 93 Room Air 06/30/24 20:00 36.8 C 89 18 143/80 H 94 Room Air 06/30/24 20:00 Room Air PG Care Time/CCT Total # of Minutes Spent Total Time Spent with Patient: Total time spent is greater than 50% in coordination of care (as documented) at patient's floor/unit and/or counseling patient: Coding Level of Care Code 69228 SUB INP/OBS CARE 235MIN Diagnoses Perforated gastric ulcer K25.5 SONI (acute kidney injury) N17.9 Septic shock A41.9; R65.21 Hypothyroidism E03.9 HTN (hypertension) I10 Hyperlipidemia E78.5 Colonic mass K63.89
[2024-07-01 06:45] LABS: BUN Creatinine Ratio 42.5 (10-20); Calcium 8.1 mg/dl (8.6-10.3); Est GFR (African American) 59.1 ml/min; Magnesium 1.8 mg/dl (1.7-2.4); Phosphorus 3.2 mg/dl (2.5-4.9); Potassium 3.9 mmol/L (3.5-5.1)
[2024-07-01 07:16] LABS: Polychromasia 1+
[2024-07-01] MEDS: [UNRECOGNIZED DRUG - OTHER] IV SCH (15:56)
[2024-07-01] MEDS: CLINOLIPID 20% IV FAT EMULSION 250 ML IV SCH (15:56)
[2024-07-01] MEDS: CENTRAL TPN IV SCH (15:56)
--- NOTE | 2024-07-02 05:49 | Surgery Progress Note ---
Date of Service July 02, 2024 Assessment & Plan (1) Perforated gastric ulcer: Plan: Status post exploratory laparotomy with Uriel patch on 06/21/2024 (postop day #11) Continue analgesics and antiemetics if needed Continue clear liquid diet for the present time (Surgeon performing operation wanted this diet continued through the weekend) Continue parenteral nutrition until oral intake can be advanced further and is deemed adequate Continue to increase mobilization Continue SINCERE drains and IR drains to self suction Cultures taken at time of operation grew Pseudomonas; continue antibiotics in the form of meropenem Cultures from IR drain are again noted to have no growth to date ID consultation noted and duration of antibiotics to be determined based on pending microbiology and her clinical response Continue twice daily Protonix Check a.m. labs and available SCDs are in place for DVT prevention, no chemical means due to her perforated ulcer as above. feeling ok. +bm. some "cramping". madan clears. no fevers stay on clears as per Dr. Rizzo instruction. wbc slowly improving. Admission and Anticipated Discharge Date Admission Date: June 21, 2024 Subjective Patient is resting comfortably in bed. At the present time she denies any abdominal pain. She continues to have her bowels move. She is tolerating clear liquids without any nausea or vomiting. She notes that she has sat on the edge of her bed. I discussed with shift production associate nurse attending the patient and she verified the above information and did not voice any new concerns. Physical Exam Gastrointestinal (Abdomen): Abdomen is soft and nondistended with minimal tenderness. Incision is intact with roberto and there is some serosanguineous drainage noted on the dressing. Patient has [address] as well as an IR drain which is draining serous fluid. Results & Data Vital Signs (Past 12 Hours) Vital Signs Temp Pulse Pulse Resp BP Pulse Ox O2 Del Method 07/02/24 03:28 37.4 C 70 16 146/78 H 93 Room Air 07/02/24 00:00 95 H 07/01/24 22:57 36.8 C 101 H 18 126/77 98 Room Air 07/01/24 19:25 37 C 93 H 19 133/67 95 Nasal Cannula O2 Flow Rate 07/02/24 03:28 07/02/24 00:00 07/01/24 22:57 07/01/24 19:25 2 PG Care Time/CCT Total # of Minutes Spent Total Time Spent with Patient: Total time spent is greater than 50% in coordination of care (as documented) at patient's floor/unit and/or counseling patient: Coding Level of Care Code 66721 Post Operative Follow-Up Diagnoses Perforated gastric ulcer K25.5
[2024-07-02 08:03] LABS: Basophils # (auto) 0.05 K/uL (0.00-0.20); Basophils % (auto) 0.4 %; Eosinophils # (auto) 0.21 K/uL (0.00-0.50); Eosinophils % (auto) 1.5 %; Hemoglobin 7.9 g/dl (12.0-16.0); Immature Granulocytes # (auto) 0.19 K/uL (0.01-0.20); Immature Granulocytes % (auto) 1.4 %; Lymphocytes % (auto) 8.1 %; Mean Corpuscular Hemoglobin 30.2 pg (25.0-34.0); Mean Corpuscular Hgb Conc 31.6 g/dL (32.0-36.0); Mean Corpuscular Volume 95.4 fL (80.0-100.0); Mean Platelet Volume 11.6 fL (9.4-12.4); Monocytes # (auto) 0.69 K/uL (0.11-0.59); Monocytes % (auto) 5.1 %; Neutrophils # (auto) 11.41 K/uL (1.40-6.50); Neutrophils % (auto) 83.5 %; Platelet Count 341 K/uL (130-400); RDW Coefficient of Variation 13.9 % (11.5-14.5); RDW Standard Deviation 48.2 fL (36.4-46.3); Red Blood Count 2.62 M/uL (4.20-5.40); White Blood Count 13.65 K/ul (4.8-10.8)
--- NOTE | 2024-07-02 08:12 | Hospitalist Progress Note ---
Date of Service July 01, 2024 Assessment & Plan (1) Perforated gastric ulcer: (2) SONI (acute kidney injury): (3) Septic shock: (4) Hypothyroidism: (5) HTN (hypertension): (6) Hyperlipidemia: (7) Colonic mass: Plan 74-year-old female presented to the ER 06/01 with abdominal pain after undergoing a colonoscopy, during which an area of stricture with ulceration was noted. Patient subsequently developed abdominal pain which gradually worsened and was seen in the ER. CTA/P showed mild abdominal ascites, scattered pneumoperitoneum suspicious for bowel perforation. Chest x-ray showed suspected free air under the right diaphragm. Patient presented to the ER fluid respons samantha but initially hypotensive. Patient was taken for ex lap and admitted by surgery that evening. Ex lap identified a perforated gastric ulcer and Uriel patch of perforated ulcer was performed. Patient was subsequently transferred to the ICU for septic shock due to peritonitis with perforated gastric ulcer. She was transiently hypotensive requiring phenylephrine, and was left intubated following her surgical procedure. She is initially on meropenem, was de- escalated to ertapenem. She underwent hemodialysis 06/22 for hyperkalemia and poor output. She clinically progressed and was extubated. Subsequently downgraded from ICU. Due to her medical complexity she was recommended for transfer to medical service at time of downgrade. Time bedside assessment NGT is in place. Patient is nondistressed. Endorses some postoperative abdominal discomfort improved from prior. Denies new/worsening pain. Denies shortness of breath. Denies chest pain. Abdomen is tender surrounding surgical site, but soft and without rebound/guarding. 2X SINCERE drains are intact left with serosanguineous fluid right with serous fluid. #Sepsis #Perforated gastric ulcer - pt was using diclofenac for long time for back pain - avoid NSAIDs 06/21/2024: S/p ex lap with identified perforated gastric ulcer s/p repair - periotoneal fluid culture (06/21): pseudomonas, BCx (06/22) NGTD Initially on meropenem, narrowed, continue ertapenem Surgery following, unfortunately rpt CT done today (06/25) showed small leak, thus decision made to keep pt NPO -ordered PPN on 06/26, central line consent obtained on 06/27, will start TPN continue lasix BID now getting protein drinks Repeat scan showed no signs of a gastric leak. Went to IR to remove fluid, only about 1 ml of abdominal fluid was removed. -will continue tpn this weekend continue to monitor blood work: shows improvement #Volume overload - discussed with nephro, due to nutritional deficiency , given improvement in renal fn, no further indication for HD - albumin q6h x24 hrs / Lasix 40mg IV daily - pharmacy consulted for TPN, first dose will be 06/26/24, 4pm -increased lasix to BID on 06/26, #SONI, CKD 3 Baseline creatinine 11.1. Acutely elevated creatinine with poor urine output in the setting of sepsis Hyperkalemic which improved after 1 dialysis session Nephrology following, no further plan for HD with improvement in Cr ARB/spironolactone/NSAIDs held - lasix resumed with albumin - SONI appears to have improved. #Anemia - s/p PRBC transfusion - rpt Hgb stable #IV infiltration - cont conservative management #Hypertension #Grade II diastolic dysfunction Echo 03/2021: LVEF hyperdynamic. Normal PA/RA pressures. Normal RV size and function. Has history of grade 2 diastolic dysfunction - anti Nebivolol held while n.p.o. - off of pressors, BP much improved, monitor while receiving lasix Right-sided colonic stricture, colonic mass Following with GI as an outpatient, and recent colonoscopy as noted. Cause of pneumoperitoneum was identified as perforated gastric ulcer.Continue outpatient follow-up. Path report showed fragments of colonic mucosa with focal ulceration and reactive changes no diagnostic evidence of malignancy identified from sampled tissue. Hypothyroidism Synthroid converted to IV / NPO Hyperlipidemia Statin held while n.p.o. Admission and Anticipated Discharge Date Admission Date: June 21, 2024 Subjective Patient reports no new symptoms. Review of Systems Review of Systems: All systems reviewed & are unremarkable except as noted in HPI & below Physical Exam Physical Exam: Gen: no acute distress HEENT: NC/AT, MMM, NGT in place Lungs: No wheezing heard omn auscultation CVS: s1s2 nl , RRR Abd: surgical incision c/d/i, nl BS, soft : + ferreira Ext: + edema, RUE infiltrated IV with small areas of denuded skin Psych: pleasant, cooperative Results & Data Results & Data Vital Signs (Past 12 Hours) Vital Signs Temp Pulse Pulse Resp BP Pulse Ox O2 Del Method 09/08/24 07:15 36.7 C 83 14 110/69 95 Room Air 07/02/24 03:28 37.4 C 70 16 146/78 H 93 Room Air 07/02/24 00:00 95 H 07/01/24 22:57 36.8 C 101 H 18 126/77 98 Room Air PG Care Time/CCT Total # of Minutes Spent Total Time Spent with Patient: Total time spent is greater than 50% in coordination of care (as documented) at patient's floor/unit and/or counseling patient: Coding Level of Care Code 79001 SUB INP/OBS CARE 2/35MIN Diagnoses Perforated gastric ulcer K25.5 SONI (acute kidney injury) N17.9 Septic shock A41.9; R65.21 Hypothyroidism E03.9 HTN (hypertension) I10 Hyperlipidemia E78.5 Colonic mass K63.89
[2024-07-02 08:25] LABS: Polychromasia 1+
[2024-07-02 08:38] LABS: Calcium 8.3 mg/dl (8.6-10.3); Magnesium 1.9 mg/dl (1.7-2.4); Potassium 4.2 mmol/L (3.5-5.1)
[2024-07-02 08:44] LABS: Creatinine Clr Calc Pharmacy 44.1 ml/min; Est GFR (African American) 61.9 ml/min; Est GFR (Non-African American) 53.4 ml/min; Phosphorus 3.3 mg/dl (2.5-4.9)
[2024-07-02] MEDS: [UNRECOGNIZED DRUG - OTHER] IV SCH (16:25)
[2024-07-02] MEDS: CENTRAL TPN IV SCH (16:25)
[2024-07-02] MEDS: CLINOLIPID 20% IV FAT EMULSION 250 ML IV SCH (16:26)
--- NOTE | 2024-07-02 22:49 | Hospitalist Progress Note ---
Date of Service July 02, 2024 Assessment & Plan (1) Perforated gastric ulcer: (2) SONI (acute kidney injury): (3) Septic shock: (4) Hypothyroidism: (5) HTN (hypertension): (6) Hyperlipidemia: (7) Colonic mass: Plan 74-year-old female presented to the ER 06/01 with abdominal pain after undergoing a colonoscopy, during which an area of stricture with ulceration was noted. Patient subsequently developed abdominal pain which gradually worsened and was seen in the ER. CTA/P showed mild abdominal ascites, scattered pneumoperitoneum suspicious for bowel perforation. Chest x-ray showed suspected free air under the right diaphragm. Patient presented to the ER fluid respons samantha but initially hypotensive. Patient was taken for ex lap and admitted by surgery that evening. Ex lap identified a perforated gastric ulcer and Uriel patch of perforated ulcer was performed. Patient was subsequently transferred to the ICU for septic shock due to peritonitis with perforated gastric ulcer. She was transiently hypotensive requiring phenylephrine, and was left intubated following her surgical procedure. She is initially on meropenem, was de- escalated to ertapenem. She underwent hemodialysis 06/22 for hyperkalemia and poor output. She clinically progressed and was extubated. Subsequently downgraded from ICU. Due to her medical complexity she was recommended for transfer to medical service at time of downgrade. Time bedside assessment NGT is in place. Patient is nondistressed. Endorses some postoperative abdominal discomfort improved from prior. Denies new/worsening pain. Denies shortness of breath. Denies chest pain. Abdomen is tender surrounding surgical site, but soft and without rebound/guarding. 2X SINCERE drains are intact left with serosanguineous fluid right with serous fluid. #Sepsis #Perforated gastric ulcer - pt was using diclofenac for long time for back pain - avoid NSAIDs 06/21/2024: S/p ex lap with identified perforated gastric ulcer s/p repair - periotoneal fluid culture (06/21): pseudomonas, BCx (06/22) NGTD Initially on meropenem, narrowed, continue ertapenem Surgery following, unfortunately rpt CT done today (06/25) showed small leak, thus decision made to keep pt NPO -ordered PPN on 06/26, central line consent obtained on 06/27, will start TPN continue lasix BID now getting protein drinks Repeat scan showed no signs of a gastric leak. Went to IR to remove fluid, only about 1 ml of abdominal fluid was removed. -will continue tpn this weekend continue to monitor blood work: shows improvement #Volume overload - discussed with nephro, due to nutritional deficiency , given improvement in renal fn, no further indication for HD - albumin q6h x24 hrs / Lasix 40mg IV daily - pharmacy consulted for TPN, first dose will be 06/26/24, 4pm -increased lasix to BID on 06/26, #SONI, CKD 3 Baseline creatinine 11.1. Acutely elevated creatinine with poor urine output in the setting of sepsis Hyperkalemic which improved after 1 dialysis session Nephrology following, no further plan for HD with improvement in Cr ARB/spironolactone/NSAIDs held - lasix resumed with albumin - SONI appears to have improved. #Anemia - s/p PRBC transfusion - rpt Hgb stable #IV infiltration - cont conservative management #Hypertension #Grade II diastolic dysfunction Echo 03/2021: LVEF hyperdynamic. Normal PA/RA pressures. Normal RV size and function. Has history of grade 2 diastolic dysfunction - anti Nebivolol held while n.p.o. - off of pressors, BP much improved, monitor while receiving lasix Right-sided colonic stricture, colonic mass Following with GI as an outpatient, and recent colonoscopy as noted. Cause of pneumoperitoneum was identified as perforated gastric ulcer.Continue outpatient follow-up. Path report showed fragments of colonic mucosa with focal ulceration and reactive changes no diagnostic evidence of malignancy identified from sampled tissue. Hypothyroidism Synthroid converted to IV / NPO Hyperlipidemia Statin held currently as diet has not been advanced past liquid Admission and Anticipated Discharge Date Admission Date: June 21, 2024 Subjective Patient reports passing gas. Tolerating diet. Has intermittent colic pain. Review of Systems Review of Systems: All systems reviewed & are unremarkable except as noted in HPI & below Physical Exam Physical Exam: Gen: no acute distress HEENT: NC/AT, MMM, NGT in place Lungs: No wheezing heard omn auscultation CVS: s1s2 nl , RRR Abd: surgical incision c/d/i, nl BS, soft : + ferreira Ext: + edema Psych: pleasant, cooperative Results & Data Results & Data Vital Signs (Past 12 Hours) Vital Signs Temp Pulse Resp BP Pulse Ox O2 Del Method O2 Flow Rate 07/02/24 19:00 36.9 C 91 H 18 125/73 95 Nasal Cannula 1 07/02/24 11:00 37.6 C H 90 14 110/73 95 Nasal Cannula 2 PG Care Time/CCT Total # of Minutes Spent Total Time Spent with Patient: Total time spent is greater than 50% in coordination of care (as documented) at patient's floor/unit and/or counseling patient: Coding Level of Care Code 32614 SUB INP/OBS CARE 2/35MIN Diagnoses Perforated gastric ulcer K25.5 SONI (acute kidney injury) N17.9 Septic shock A41.9; R65.21 Hypothyroidism E03.9 HTN (hypertension) I10 Hyperlipidemia E78.5 Colonic mass K63.89
[2024-07-03 06:39] LABS: Hematocrit (blood only) 23.8 % (37.0-47.0); Hemoglobin 7.4 g/dl (12.0-16.0); Mean Corpuscular Hemoglobin 28.9 pg (25.0-34.0); Mean Corpuscular Hgb Conc 31.1 g/dL (32.0-36.0); Mean Platelet Volume 10.7 fL (9.4-12.4); Platelet Count 443 K/uL (130-400); RDW Coefficient of Variation 13.6 % (11.5-14.5); RDW Standard Deviation 46.6 fL (36.4-46.3); Red Blood Count 2.56 M/uL (4.20-5.40)
[2024-07-03 06:53] LABS: BUN Creatinine Ratio 54.6 (10-20); Calcium 8.4 mg/dl (8.6-10.3); Creatinine Clr Calc Pharmacy 46.1 ml/min; Est GFR (African American) 65.8 ml/min; Est GFR (Non-African American) 56.7 ml/min; Magnesium 1.8 mg/dl (1.7-2.4); Phosphorus 3.1 mg/dl (2.5-4.9); Potassium 4.3 mmol/L (3.5-5.1)
--- NOTE | 2024-07-03 08:22 | Hospitalist Progress Note ---
Date of Service July 03, 2024 Assessment & Plan (1) Perforated gastric ulcer: Plan: presented to the ER 06/21 with abdominal pain after undergoing a colonoscopy, during which an area of stricture with ulceration was noted. subsequently developed abdominal pain CTA/P showed pneumoperitoneum suspicious for bowel perforation. Chest x-ray suspected free air Presented in septic shock from peritonitis, taken for emergency ex lap Ex lap identified a perforated gastric ulcer and Uriel patch of perforated ulcer was performed. IN ICU she required phenylephrine, and remained intubated following her surgical procedure. initially on meropenem, was de-escalated to ertapenem. She underwent hemodialysis 06/22 for SONI & hyperkalemia and poor output. remains on lasix as fluid ahead Transfered to medical service, NGT 2X SINCERE drains are removed on 07/03, IR placed drain with serosanguineous fluid right abdomen surgery is managing advancement of diet on TPN, likely expected last day of TPN if she is able to tolerate advancement of diet Acute blood loss anemia s/p transfusion (2) HTN (hypertension): Plan: Grade II diastolic dysfunction Echo 03/2021: LVEF hyperdynamic. Normal PA/RA pressures. Normal RV size and function. Has history of grade 2 diastolic dysfunction - anti Nebivolol held while n.p.o. (3) Colonic mass: Plan: Right-sided colonic stricture, colonic mass Following with GI as an outpatient, and recent colonoscopy as noted. Cause of pneumoperitoneum was identified as perforated gastric ulcer.Continue outpatient follow-up. Path report showed fragments of colonic mucosa with focal ulceration and reactive changes no diagnostic evidence of malignancy identified from sampled tissue Plan Synthroid converted to IV 2/2 NPO Hyperlipidemia Statin held Patient request pramipexole for restless leg syndrome this was ordered on 07/03/2024 Admission and Anticipated Discharge Date Admission Date: June 21, 2024 Subjective Patient doing well has the NG tube and SINCERE tubes removed as 1 tube drainage tube in place. She is able to take oral medications and clear liquid diet. She is markedly deconditioned and still having some minor abdominal pain Physical Exam Physical Exam: Pleasant conversant Abdomen still with hypoactive bowel sounds uncomfortable in all areas Right-sided abdominal drain with serosanguineous fluid in the bag Cardiac exam is regular lungs are clear and unlabored she is not requiring oxygen supplementation Results & Data Results & Data Vital Signs (Past 12 Hours) Vital Signs Temp Pulse Pulse Resp BP Pulse Ox O2 Del Method 07/03/24 07:12 97.5 F L 97 H 16 138/77 95 Room Air 07/03/24 03:00 99.0 F 95 H 18 129/75 94 Nasal Cannula 07/03/24 00:00 100 H 07/02/24 23:42 99.0 F 108 H 18 134/74 93 Nasal Cannula O2 Flow Rate 07/03/24 07:12 07/03/24 03:00 1 07/03/24 00:00 07/02/24 23:42 1 Laboratory Results Reviewed CBC reviewed chemistry PG Care Time/CCT Total # of Minutes Spent Total Time Spent with Patient: Total time spent is greater than 50% in coordination of care (as documented) at patient's floor/unit and/or counseling patient: Coding Level of Care Code 32827 SUB INP/OBS CARE 3/50MIN Diagnoses Perforated gastric ulcer K25.5 HTN (hypertension) I10 Colonic mass K63.89
--- NOTE | 2024-07-03 09:58 | Surgery Progress Note ---
Date of Service July 03, 2024 Assessment & Plan (1) Perforated gastric ulcer: Plan: POD 14 Exploratory Laparotomy, Gastric Washout, Repair of Perforated Gastric Ulcer 06/21/24 WBC remain around 13, VSS afebrile , continue IV antibiotics , incentive spirometry abd cramping since starting diet , tolerating clears not much appetite Will advance to fulls and see how she fairs SINCERE drains serous fluid , IR drain place 06/29/24 encouraged OOB to chair , increase activity, PT /OT would benefit from rehab at d/c Admission and Anticipated Discharge Date Admission Date: June 21, 2024 Supervising Physician Co-Signing Physician Notes Patient seen and examined, labs reviewed, agree with above. Status post laparotomy with Uriel patch repair of perforated ulcer and drainage of fluid collection. Tolerated clear liquids over the weekend with no change in quality or quantity of her SINCERE drains. Getting stronger. Not much of an appetite. Afebrile stable vitals. Incision with roberto, 2 openings packed with gauze. SINCERE drains serosanguineous with minimal output. These were removed. IR drain with serosanguineous fluid. WBC slowly downtrending. Will continue IV antibiotics, advance to full liquids. Continue IR drain for now. Will discuss further imaging with radiology. Continue TPN, consult nutrition for calorie counts. Ambulation, OT/PT, out of bed to chair, I-S Subjective reports cramping abd pain since on clears no n/v +bm desires rehab at d/c Review of Systems Constitutional: no fever and no chills Gastrointestinal: + abdominal pain, + early satiety and + cramping; no nausea and no vomiting Musculoskeletal: + muscle weakness Physical Exam Constitutional: cooperative and comfortable; no acute distress Respiratory: able to speak in complete sentences; no respiratory distress Gastrointestinal (Abdomen): Inspection/Auscultation: abdomen not distended Percussion/Palpation: + abdomen tender and abdomen soft Results & Data Vital Signs (Past 12 Hours) Vital Signs Temp Pulse Pulse Resp BP Pulse Ox O2 Del Method 07/03/24 08:00 80 07/03/24 08:00 Room Air 07/03/24 07:12 97.5 F L 97 H 16 138/77 95 Room Air 07/03/24 03:00 99.0 F 95 H 18 129/75 94 Nasal Cannula 07/03/24 00:00 100 H 07/02/24 23:42 99.0 F 108 H 18 134/74 93 Nasal Cannula O2 Flow Rate 07/03/24 08:00 07/03/24 08:00 07/03/24 07:12 07/03/24 03:00 1 07/03/24 00:00 07/02/24 23:42 1 Results CBC w Diff Results: RBC 2.56 M/uL (4.20-5.40) L 07/03/24 WBC 13.50 K/ul (4.8-10.8) H 07/03/24 Hgb 7.4 g/dl (12.0-16.0) L 07/03/24 Hct 23.8 % (37.0-47.0) L 07/03/24 MCV 93.0 fL (80.0-100.0) 07/03/24 MCH 28.9 pg (25.0-34.0) 07/03/24 MCHC 31.1 g/dL (32.0-36.0) L 07/03/24 RDW Standard Deviation 46.6 fL (36.4-46.3) H 07/03/24 RDW Coefficient of Variation 13.6 % (11.5-14.5) 07/03/24 Plt Count 443 K/uL (130-400) H 07/03/24 MPV 10.7 fL (9.4-12.4) 07/03/24 Nucleated Red Blood Cells % (auto) 0.1 % 06/27 Nucleated RBC Absolute Count (auto) 0.02 K/uL (0.00-0.12) 0 06/27/24 Neutrophils (%) (Auto) 83.5 % 07/02/24 Lymphocytes (%) (Auto) 8.1 % 07/02/24 Monocytes # (Auto) 0.69 K/uL (0.11-0.59) H 07/02/24 Eosinophils # (Auto) 0.21 K/uL (0.00-0.50) 07/02/24 Immature Granulocyte % (Auto) 1.4 % 07/02/24 Neutrophils # (Auto) 11.41 K/uL (1.40-6.50) H 07/02/24 Lymphocytes # (Auto) 1.10 K/uL (1.20-3.40) L 07/02/24 Monocytes # (Auto) 0.69 K/uL (0.11-0.59) H 07/02/24 Eosinophils # (Auto) 0.21 K/uL (0.00-0.50) 07/02/24 Basophils # (Auto) 0.05 K/uL (0.00-0.20) 07/02/24 Immature Granulocyte # (Auto) 0.19 K/uL (0.01-0.20) 4 ANC 1.83 K/uL (1.4-6.5) 06/22/24 ALC 0.60 K/uL (1.2-3.4) L 06/22/24 Neutrophils % (Manual) 67 % 06/22/24 Lymphocytes % (Manual) 22 % 06/22/24 Monocytes % (Manual) 2 % 06/22/24 Metamyelocytes % (manual) 9 % 06/22/24 Myelocytes % (Manual) 2 % 06/21/24 Neutrophils # (Manual) 1.83 K/uL (1.40-6.50) 06/22/24 Lymphocytes # (Manual) 0.60 K/uL (1.2-3.4) L 06/22/24 Monocytes # (Manual) 0.05 K/uL (0.11-0.59) L 06/22/24 Metamyelocytes # (Manual) 0.25 K/uL (0-0) H 06/22/24 Myelocytes # (Manual) 0.15 K/uL (0-0) H 06/21/24 Polychromasia 1+ 07/02/24 Echinocytes 2+ 06/22/24 Target Cells 1+ 06/25/24 Toxic Granulation 1+ 06/21/24 Toxic Vacuolation 3+ 06/23/24 Dohle Bodies 1+ 06/24/24 Acanthocytes 2+ 06/21/24 PG Care Time/CCT Total # of Minutes Spent Total Time Spent with Patient: Total time spent is greater than 50% in coordination of care (as documented) at patient's floor/unit and/or counseling patient: Coding Level of Care Code 72915 Post Operative Follow-Up Diagnoses Perforated gastric ulcer K25.5
[2024-07-03] MEDS: [UNRECOGNIZED DRUG - OTHER] IV SCH (16:34)
[2024-07-03] MEDS: CLINOLIPID 20% IV FAT EMULSION 250 ML IV SCH (16:34)
[2024-07-03] MEDS: CENTRAL TPN IV SCH (16:34)
[2024-07-03] MEDS: FUROSEMIDE 40 MG/4 ML VIAL IV SCH (17:54)
[2024-07-03] MEDS: PRAMIPEXOLE DIHYDROCHLO 0.5 MG TAB PO SCH (20:15)
[2024-07-04 07:55] LABS: BUN Creatinine Ratio 52.6 (10-20); Bilirubin,Total 0.5 mg/dl (0.2-1.0); Calcium 8.8 mg/dl (8.6-10.3); Creatinine Clr Calc Pharmacy 48.5 ml/min; Est GFR (African American) 67.4 ml/min; Est GFR (Non-African American) 58.2 ml/min; Magnesium 2.1 mg/dl (1.7-2.4); Phosphorus 2.9 mg/dl (2.5-4.9); Potassium 4.3 mmol/L (3.5-5.1)
--- NOTE | 2024-07-04 09:11 | Infectious Disease Progress Nt ---
Date of Service July 04, 2024 Assessment & Plan (1) Status post exploratory laparotomy: (2) Perforated gastric ulcer: Plan This is a 74-year-old female status post total right hip arthroplasty, lumbar stenosis on Nsaids, LE neuropathy, CKD who presents to the ED with abdominal pain, shortness of breath, lightheadedness. She recently underwent colonoscopy , which showed a possible stricture in her colon. On 06/20, she had a repeat colonoscopy. At the area of possible stricture, there was many ulcerated areas. GI was able to traverse the area and no stricture was present. There was concern that the ulcerations were either ischemic or due to NSAID use. Biopsies were obtained with cold forceps. Postprocedure she developed abdominal pain that persisted throughout the day with some nausea and vomiting. She began to feel lightheaded / dizzy, then cold and clammy. She presented to the ED for further evaluation. In the ED, she was afebrile, pulse 83, respiratory rate 20, blood pressure 98/55, O2 sats 98% on room air. Labs WBC 7.54, hemoglobin 10.1, hematocrit 33.4, platelets 425, BUN 53, creatinine 3.98, lactate 4--> 3.4, procalcitonin 23.10---> 25.80. Chest x-ray showed potential free air under the right hemidiaphragm. CTAP showed mild ascites and scattered pneumoperitoneum c/f perforation. The site of perforation was not clearly delineated but likely somewhere within the colon given recent colonoscopy. She underwent exploratory laparotomy, gastric washout, repair of the perforated gastric ulcer on 06/21. There was copious amounts of bile-stained purulent fluid in the peritoneum that was sent for culture. Colon did not appear to be perforated. The stomach had a large hole in the anterior portion of the antrum. There was no obvious tumor. She was intubated postop and required low-dose vasopressor support. Course complicated by oliguria but she not require HD as urine output improved. Outpatient Colon pathology showed focal mild epithelial atypia associated with ulceration. No diagnostic evidence of neoplasm/malignancy identified in the samples. She was initially on meropenem---> ertapenem. Repeat CTAP done on 06/25 with oral contrast via NG tube showed a possible small leak. An NG tube was placed. Labs noted for increase leukocytosis, WBC 15.63 on 06/27. Peritoneal fluid cultures finalized with Pseudomonas aeruginosa. Her antibiotics were changed back to meropenem on 06/27. ID consulted for Pseudomonas growing in p eritoneal fluid. On my initial exam, she complains of fatigue and abdominal pain.She denies change in bowel or urine. Micro: Peritoneal fluid culture 06/21 Pseudomonas aeruginosa (peoples S) Blood culture 06/22 NG Aspiration culture 06/29 #1 NGTD Aspiration culture 06/29 #2 NGTD Antibiotics Meropenem 06/21 - 06/22, 06/27- ongoing Ertapenem #Perforated gastric ulcer/viscus w/ peritonitis and significant leakage: subsequent development of abscess vs post op seroma -Status post ex lap and washout an subsequent collection drain placement #Pseudomonas Aeruginosa peritonitis #Leukocytosis #Septic shock in the setting of perforated bowel, resolved #PCN allergy: anaphylaxis #Cipro SE; myalgias # Clayton on CKD Her initial worsening leukocytosis likely occurred in the setting of ertapenem, which would not cover Pseudomonas. Pseudomonal coverage restarted on 06/27 with meropenem. Zosyn is not an option in her case secondary to PCN allergy ( anaphylaxis) . She is not sure if she received Cephalosporins in past, so we will hold off on cefepime/Flagyl for now. She reports muscle aches with Cipro. For complicated abdominal surgery, usually require 4 days of antibiotics once source control achieved. She will need a longer course of antibiotics as she appears to have deveped an abscess vs post op seroma. Procal has trended down to 0.53. WBC initially trended down but now increasing post IR guided drain placement. . 06/28 procal down to 0.88 ( 25.8), WBC 15.31 06/29 Repeat CTAP with interval progression of the loculated fluid collections within the abdomen primarily along the left hepatic lobe. ? postoperative seromas or developing abscesses. WBC 13.28. Sp IR for collection aspiration with drain placement 06/30 feels well, WBC up to 15.22, procal down to 0.53, crp 12.25. Collection cx NGTD. Recommendations Continue meropenem 2 g IV q12h (crcl~ 40) for Pseudomonas peritonitis. Expected duration TBD as now has new loculated collection on imaging. Anticipate at leas t 2 weeks of treatment from drainage ( 06/29) but final duration will depend on resolution of ? abscess on imaging Follow up aspiration culture from 06/29 and adjust antibiotics if needed. Monitor WBC ID will continue to follow. [facility] will not round over the weekend. Call [phone] with questions Gerardo Storm MD, MPH Infectious Disease [facility], [facility] Admission and Anticipated Discharge Date Admission Date: June 21, 2024 Subjective Subsequent visit was provided via telemedicine using two-way real-time interactive telecommunication between the patient and the telemedicine provider. For the duration of the visit, the provider was performing the assessment from a different facility than the patient. This includesuse of bluetooth stethoscope forauscultationperformed by the telepresenter that the telemedicine provider can hear if described in the physical exam. [employer] contact information: Please call [facility] Call Center [phone]. (Phone Number For Physician Use Only) Results & Data Vital Signs (Past 12 Hours) Vital Signs Temp Pulse Pulse Resp BP Pulse Ox O2 Del Method 07/04/24 07:02 36.7 C 94 H 16 133/75 95 Room Air 07/04/24 03:00 36.6 C 96 H 18 142/72 H 93 Room Air 07/03/24 23:57 97 H 07/03/24 22:22 36.5 C 108 H 18 128/74 94 Room Air
--- NOTE | 2024-07-04 09:54 | Surgery Progress Note ---
Date of Service July 04, 2024 Assessment & Plan (1) Perforated gastric ulcer: Plan: POD 15 Exploratory Laparotomy, Gastric Washout, Repair of Perforated Gastric Ulcer 06/21/24 WBC remain around 13, VSS afebrile , continue IV antibiotics , incentive spirometry tolerating fulls not much appetite IR drain place 06/29/24 encouraged OOB to chair , increase activity, PT /OT would benefit from rehab at d/c change gauze dressing BID , pack inferior and superior aspects of midline open wound pt seen with Dr. Aranda Admission and Anticipated Discharge Date Admission Date: June 21, 2024 Supervising Physician Co-Signing Physician Notes Continue fulls for today Change packing to wound BID Continue TPN until tolerating regular diet Subjective tolerating full liquids had one episode of nausea when being turned in bed no vomiting Review of Systems Constitutional: no fever and no chills Respiratory: + cough and + dyspnea on exertion Cardiovascular: no chest pain Gastrointestinal: + abdominal pain; no nausea and no vomit ing Musculoskeletal: + muscle weakness Physical Exam Constitutional: cooperative and comfortable; no acute distress Respiratory: normal respiratory effort; no respiratory distress Cardiovascular: Rate/Rhythm: + tachycardic (94) Gastrointestinal (Abdomen): Inspection/Auscultation: + abdominal surgical incision (roberto midline , dry gauze packing to superior and inferior , abd medipore) Percussion/Palpation: + abdomen tender and abdomen soft Results & Data Vital Signs (Past 12 Hours) Vital Signs Temp Pulse Pulse Resp BP Pulse Ox O2 Del Method 07/04/24 07:02 98.1 F 94 H 16 133/75 95 Room Air 07/04/24 03:00 97.9 F 96 H 18 142/72 H 93 Room Air 07/03/24 23:57 97 H 07/03/24 22:22 97.7 F 108 H 18 128/74 94 Room Air PG Care Time/CCT Total # of Minutes Spent Total Time Spent with Patient: Total time spent is greater than 50% in coordination of care (as documented) at patient's floor/unit and/or counseling patient: Coding Level of Care Code 36946 Post Operative Follow-Up Diagnoses Perforated gastric ulcer K25.5
--- NOTE | 2024-07-04 10:23 | Pharmacy Report ---
Pharmacy PN Follow-up Note - Date of Service July 04, 2024 - Subjective Patient is currently on day #[] of [PPN][TPN] for [Indication]. - Objective Height & Weight (Last Documented) Height 5 ft 1 in Weight 80.9 kg Diet Order(s) 06/29/24 Lunch Diet Intake & Ouput (24hrs) 07/03/24 07/04/24 07/05/24 06:59 06:59 06:59 Intake Total 2545.867 / 2545.867 2582.133 / 2582.133 100 / 100 Output Total 2025 200 / 200 Balance 2540.867 / 2540.867 556.133 / 556.133 -100 / -100 Selected Laboratory Results 07/04/24 07:15 Sodium 139 Potassium 4.3 Chloride 109 H Carbon Dioxide 24 Anion Gap 6 BUN 50 H Creatinine 0.95 Est GFR ( Amer) 67.4 Est GFR (Non-Af Amer) 58.2 BUN/Creatinine Ratio 52.6 H Glucose 117 H Calcium 8.8 Phosphorus 2.9 Magnesium 2.1 Total Bilirubin 0.5 AST 26 Alkaline Phosphatase 101 Triglycerides 160 H - Assessment & Plan Assessment: 07/04/24: * Patient remains on TPN, while diet advancing (currently tolerating full liquid diet, but not much of an appetite) * Plan is to continue TPN until tolerating regular diet * TPN remains at goal, providing 1296 kcal/day * Electrolytes largely stable, favoring acetate to chloride in light of hyperchloremia * Triglycerides rechecked today and stable at 160 mg/dL Background: * The patient is a 74 year old female admitted on 06/21/24 for perforated gastric ulcer * Patient is to receive parenteral nutrition for gastric ulcer with perforation s/p exploratory laparotomy with wash out, malnutrition and remains NPO. * Nephrology recommended initiation of parenteral nutrition to assist in volume overload/third spacing in the setting of malnutrition. * Hospitalist requested max volume ~1500 mL/day for day 1 - can re-evaluate daily * Pertinent PMHx: CKD (patient did require HD earlier this admission due to SONI) * PICC line placed on 06/27/24, will continue on w/ central TPN formulation Plan: * For Day #10 of TPN administration, the following will be ordered: * Macronutrients: * Amino Acids: 80 grams/day * Dextrose: 140 grams/day * Lipids: 50 grams/day * Micronutrients: * Sodium phosphate: 36 mMol/day * Potassium acetate: 80 mEq/day * Magnesium sulfate: 4.06 mEq/day * Multivitamins: 10 mL/day * Trace elements: 1 mL/day * Thiamine: 100 mg/day * Folic Acid: 1 mg/day * Total volume of 1065 mL will be infused over 24 hours and will provide 1296 kcal/day * Labs will be ordered per PN protocol. * Pharmacy will follow and adjust PN orders on a daily basis. Thank you!
--- NOTE | 2024-07-04 12:58 | Infectious Disease Progress Nt ---
Date of Service July 04, 2024 Assessment & Plan (1) Status post exploratory laparotomy: (2) Perforated gastric ulcer: Plan 74-year-old female status post total right hip arthroplasty, lumbar stenosis on Nsaids, LE neuropathy, CKD who presents to the ED with abdominal pain, shortness of breath, lightheadedness. She recently underwent colonoscopy , which showed a possible stricture in her colon. On 06/20, she had a repeat colonoscopy. At the area of possible stricture, there was many ulcerated areas. GI was able to traverse the area and no stricture was present. There was concern that the ulcerations were either ischemic or due to NSAID use. Biopsies were obtained with cold forceps. Postprocedure she developed abdominal pain that persisted throughout the day with some nausea and vomiting. She began to feel lightheaded / dizzy, then cold and clammy. She presented to the ED for further evaluation. In the ED, she was afebrile, pulse 83, respiratory rate 20, blood pressure 98/55, O2 sats 98% on room air. Labs WBC 7.54, hemoglobin 10.1, hematocrit 33 .4, platelets 425, BUN 53, creatinine 3.98, lactate 4--> 3.4, procalcitonin 23.10---> 25.80. Chest x-ray showed potential free air under the right hemidiaphragm. CTAP showed mild ascites and scattered pneumoperitoneum c/f perforation. The site of perforation was not clearly delineated but likely somewhere within the colon given recent colonoscopy. She underwent exploratory laparotomy, gastric washout, repair of the perforated gastric ulcer on 06/21. There was copious amounts of bile-stained purulent fluid in the peritoneum that was sent for culture. Colon did not appear to be perforated. The stomach had a large hole in the anterior portion of the antrum. There was no obvious tumor. She was intubated postop and required low-dose vasopressor support. Course complicated by oliguria but she not require HD as urine output improved. Outpatient Colon pathology showed focal mild epithelial atypia associated with ulceration. No diagnostic evidence of neoplasm/malignancy identified in the samples. She was initially on meropenem---> ertapenem. Repeat CTAP done on 06/25 with oral contrast via NG tube showed a possible small leak. An NG tube was placed. Labs noted for increase leukocytosis, WBC 15.63 on 06/27. Peritoneal fluid cultures finalized with Pseudomonas aeruginosa. Her antibiotics were changed back to meropenem on 06/27. ID consulted for Pseudomonas growing in peritoneal fluid. On my initial exam, she complains of fatigue and abdominal pain.She denies change in bowel or urine. Micro: Peritoneal fluid culture 06/21 Pseudomonas aeruginosa (peoples S) Blood culture 06/22 NG Aspiration culture 06/29 #1 Lactobacillus species Aspiration culture 06/29 #2 NGTD Antibiotics Meropenem 06/21 - 06/22, 06/27- ongoing Ertapenem #Perforated gastric ulcer/viscus w/ peritonitis and significant leakage: subsequent development of abscess vs post op seroma -Status post ex lap and washout an subsequent collection drain placement #Pseudomonas Aeruginosa peritonitis #Leukocytosis #Septic shock in the setting of perforated bowel, resolved #PCN allergy: anaphylaxis #Cipro SE; myalgias # Clayton on CKD Her initial worsening leukocytosis likely occurred in the setting of ertapenem, which would not cover Pseudomonas. Pseudomonal coverage restarted on 06/27 with meropenem. Zosyn is not an option in her case secondary to PCN allergy ( anaphylaxis) . She is not sure if she received Cephalosporins in past, so we will hold off on cefepime/Flagyl for now. She reports muscle aches with Cipro. For complicated abdominal surgery, usually require 4 days of antibiotics once source control achieved. She will need a longer course of antibiotics as she appears to have deveped an abscess vs post op seroma. Procal has trended down to 0.53. WBC initially trended down but now increasing post IR guided drain placement. . 06/28 procal down to 0.88 ( 25.8), WBC 15.31 06/29 Repeat CTAP with interval progression of the loculated fluid collections within the abdomen primarily along the left hepatic lobe. ? postoperative seromas or developing abscesses. WBC 13.28. Sp IR for collection aspiration with drain placement 06/30 feels well, WBC up to 15.22, procal down to 0.53, crp 12.25. Collection cx NGTD. Recommendations Continue meropenem 2 g IV q12h (crcl~ 40) for Pseudomonas peritonitis. Expected duration TBD as now has new loculated collection on imaging. Anticipate at least 2 weeks of treatment from drainage ( 9/5) but final duration will depend on resolution of ? abscess on imaging Follow up aspiration culture from 06/29 and adjust antibiotics if needed. Monitor WBC Elinor Castillo MD Infectious Diseases Admission and Anticipated Discharge Date Admission Date: June 21, 2024 Subjective This patient recommendation is based on a telemedicine consult request which was completed asynchronously through chart review and information provided by the primary physician. The patient was not seen or examined today. The evaluation is consultative in nature and all patient care and treatment decisions can either be accepted or rejected by the patient's primary hospital-based treating physician using their own independent medical judgment for their patient. Time Spent Reviewing Chart: 21 - 30 minutes Results & Data Vital Signs (Past 12 Hours) Vital Signs Temp Pulse Pulse Resp BP Pulse Ox O2 Del Method 07/04/24 11:05 36.5 C 106 H 17 105/68 95 Room Air 07/04/24 08:00 88 07/04/24 08:00 Room Air 07/04/24 07:02 36.7 C 94 H 16 133/75 95 Room Air 07/04/24 03:00 36.6 C 96 H 18 142/72 H 93 Room Air
--- NOTE | 2024-07-04 15:27 | Hospitalist Progress Note ---
Date of Service July 04, 2024 Assessment & Plan (1) Perforated gastric ulcer: Plan: presented to the ER 06/21 with abdominal pain after undergoing a colonoscopy, during which an area of stricture with ulceration was noted. subsequently developed abdominal pain CTA/P showed pneumoperitoneum suspicious for bowel perforation. Chest x-ray suspected free air Presented in septic shock from peritonitis, taken for emergency ex lap Ex lap identified a perforated gastric ulcer and Uriel patch of perforated ulcer was performed. IN ICU she required phenylephrine, and remained intubated following her surgical procedure. initially on meropenem, was de-escalated to ertapenem. She underwent hemodialysis 06/22 for SONI & hyperkalemia and poor output. remains on lasix as fluid ahead Transfered to medical service, NGT 2X SINCERE drains are removed on 07/03, IR placed drain with serosanguineous fluid right abdomen surgery is managing advancement of diet on TPN, likely expected 07/04 last day of TPN advancement of diet met with some nausea if persists will consider KUB Acute blood loss anemia s/p transfusion (2) HTN (hypertension): Plan: Grade II diastolic dysfunction Echo 03/2021: LVEF hyperdynamic. Normal PA/RA pressures. Normal RV size and function. Has history of grade 2 diastolic dysfunction - anti Nebivolol held while n.p.o. (3) Colonic mass: Plan: Right-sided colonic stricture, colonic mass Following with GI as an outpatient, and recent colonoscopy as noted. Cause of pneumoperitoneum was identified as perforated gastric ulcer.Continue outpatient follow-up. Path report showed fragments of colonic mucosa with focal ulceration and reactive changes no diagnostic evidence of malignancy identified from sampled tissue Plan Synthroid converted to IV 2/2 NPO Hyperlipidemia Statin held Patient request pramipexole for restless leg syndrome this was ordered on 07/03/2024 Admission and Anticipated Discharge Date Admission Date: June 21, 2024 Subjective pt did have some nausea and vomiting after eating solid food for breakfast, no increase in abdominal pain , but still with pain present Physical Exam Physical Exam: looks uncomfortable abd is quiet, hypoactive BS, soft lungs are clear Results & Data Results & Data Vital Signs (Past 12 Hours) Vital Signs Temp Pulse Pulse Resp BP Pulse Ox O2 Del Method 07/04/24 14:53 97 H 07/04/24 14:49 97.7 F 104 H 18 124/72 95 Room Air 07/04/24 11:05 97.7 F 106 H 17 105/68 95 Room Air 07/04/24 08:00 88 07/04/24 08:00 Room Air 07/04/24 07:02 98.1 F 94 H 16 133/75 95 Room Air Laboratory Results review chemistry review poc glucose PG Care Time/CCT Total # of Minutes Spent Total Time Spent with Patient: Total time spent is greater than 50% in coordination of care (as documented) at patient's floor/unit and/or counseling patient: Coding Level of Care Code 33832 SUB INP/OBS CARE 2/35MIN Diagnoses Perforated gastric ulcer K25.5 HTN (hypertension) I10 Colonic mass K63.89
[2024-07-04] MEDS: CENTRAL TPN IV SCH (16:53)
[2024-07-04] MEDS: [UNRECOGNIZED DRUG - OTHER] IV SCH (16:53)
[2024-07-04] MEDS: CLINOLIPID 20% IV FAT EMULSION 250 ML IV SCH (16:58)
--- NOTE | 2024-07-05 07:55 | Surgery Progress Note ---
Date of Service July 05, 2024 Assessment & Plan (1) Perforated gastric ulcer: Plan: POD 16 Exploratory Laparotomy, Gastric Washout, Repair of Perforated Gastric Ulcer 06/21/24 CBC this am is pending. HRs 90-100s. Afebrile tolerating fulls not much appetite . one isolated episode of emesis overnight. no nausea this AM. Continue TPN IR drain place 06/29/24 with scant drainage; will discuss with IR to see if repeat imaging warranted encouraged OOB to chair , increase activity, PT /OT would benefit from rehab at d/c change gauze dressing BID , pack inferior and superior aspects of midline open wound will f/u later today Admission and Anticipated Discharge Date Admission Date: June 21, 2024 Supervising Physician Co-Signing Physician Notes Patient seen and examined, labs reviewed, agree with above. 2 weeks status post laparotomy with Uriel patch repair of perforated gastric ulcer. Had some stan sea and a small amount of emesis overnight. Having bowel movements and passing gas. Incision with roberto in place with 2 openings that are healing well without infection. IR drain with no output over the past 24 hours. WBC 10, downtrending. Discussed with IR, will obtain CT scan to further assess fluid collection and determine if drain can be removed or needs readjustment. Potentially advance to regular diet later today pending results of the CT scan. Subjective Patient feeling okay this AM. Reports an episode of emesis overnight she be lieves 1/3 cup full. She reports she has been tolerating fulls otherwise and this happened much after dinner time. She does not have much of an appetite but feels like a lot of the options are sweet items and that maybe that does not sit well with her. She likes the creamy soups. Denies nausea this morning. Otherwise she is having + bowel function. Getting to and from the commode. Abdominal pain controlled and reports some rib cage/back pains. Denies further crampiness with eating. Physical Exam Physical Exam: awake/alert, no distress Gastrointestinal (Abdomen): Inspection/Auscultation: + abdominal surgical incision (midline incision with roberto, gauze packing in two areas) and + abdominal surgical drain present (IR drain present with scant output); abdomen not distended Percussion/Palpation: abdomen soft; abdomen nontender Results & Data Vital Signs (Past 12 Hours) Vital Signs Temp Pulse Pulse Resp BP Pulse Ox O2 Del Method 07/05/24 07:47 98.4 F 93 H 17 120/74 93 Room Air 07/05/24 02:58 97.9 F 94 H 18 119/71 93 Room Air 07/05/24 00:00 88 PG Care Time/CCT Total # of Minutes Spent Total Time Spent with Patient: Total time spent is greater than 50% in coordination of care (as documented) at patient's floor/unit and/or counseling patient: Coding Level of Care Code 64809 Post Operative Follow-Up Diagnoses Perforated gastric ulcer K25.5
[2024-07-05 08:03] LABS: BUN Creatinine Ratio 51.5 (10-20); Calcium 8.7 mg/dl (8.6-10.3); Creatinine Clr Calc Pharmacy 46.6 ml/min; Est GFR (African American) 64.2 ml/min; Est GFR (Non-African American) 55.4 ml/min; Magnesium 2.1 mg/dl (1.7-2.4); Phosphorus 3.3 mg/dl (2.5-4.9); Potassium 4.5 mmol/L (3.5-5.1)
[2024-07-05 08:08] LABS: Basophils # (auto) 0.03 K/uL (0.00-0.20); Basophils % (auto) 0.3 %; Eosinophils # (auto) 0.24 K/uL (0.00-0.50); Eosinophils % (auto) 2.2 %; Hematocrit (blood only) 23.8 % (37.0-47.0); Hemoglobin 7.4 g/dl (12.0-16.0); Immature Granulocytes # (auto) 0.12 K/uL (0.01-0.20); Immature Granulocytes % (auto) 1.1 %; Lymphocytes # (auto) 1.08 K/uL (1.20-3.40); Mean Corpuscular Hemoglobin 28.8 pg (25.0-34.0); Mean Corpuscular Hgb Conc 31.1 g/dL (32.0-36.0); Mean Corpuscular Volume 92.6 fL (80.0-100.0); Mean Platelet Volume 10.6 fL (9.4-12.4); Monocytes # (auto) 0.71 K/uL (0.11-0.59); Monocytes % (auto) 6.6 %; Neutrophils # (auto) 8.63 K/uL (1.40-6.50); Neutrophils % (auto) 79.8 %; Platelet Count 505 K/uL (130-400); RDW Coefficient of Variation 13.8 % (11.5-14.5); RDW Standard Deviation 46.5 fL (36.4-46.3); Red Blood Count 2.57 M/uL (4.20-5.40); White Blood Count 10.81 K/ul (4.8-10.8)
[2024-07-05 08:33] LABS: Polychromasia 1+
--- NOTE | 2024-07-05 10:23 | Infectious Disease Progress Nt ---
Date of Service July 05, 2024 [address] hours [address] drain in place WBC 10 Afebrile Assessment & Plan (1) Status post exploratory laparotomy: (2) Perforated gastric ulcer: Plan 74-year-old female status post total right hip arthroplasty, lumbar stenosis on Nsaids, LE neuropathy, CKD who presents to the ED with abdominal pain, shortness of breath, lightheadedness. She recently underwent colonoscopy , which showed a possible stricture in her colon. On 06/20, she had a repeat colonoscopy. At the area of possible stricture, there was many ulcerated areas. GI was able to traverse the area and no stricture was present. There was concern that the ulcerations were either ischemic or due to NSAID use. Biopsies were obtained with cold forceps. Postprocedure she developed abdominal pain that persisted throughout the day with some nausea and vomiting. She began to feel lightheaded / dizzy, then cold and clammy. She presented to the ED for further evaluation. In the ED, she was afebrile, pulse 83, respiratory rate 20, blood pressure 98/55, O2 sats 98% on room air. Labs WBC 7.54, hemoglobin 10.1, hematocrit 33.4, platelets 425, BUN 53, creatinine 3.98, lactate 4--> 3.4, procalcitonin 23.10---> 25.80. Chest x-ray showed potential free air under the right hemidia phragm. CTAP showed mild ascites and scattered pneumoperitoneum c/f perforation. The site of perforation was not clearly delineated but likely somewhere within the colon given recent colonoscopy. She underwent exploratory laparotomy, gastric washout, repair of the perforated gastric ulcer on 06/21. There was copious amounts of bile-stained purulent fluid in the peritoneum that was sent for culture. Colon did not appear to be perforated. The stomach had a large hole in the anterior portion of the antrum. There was no obvious tumor. She was intubated postop and required low-dose vasopressor support. Course complicated by oliguria but she not require HD as urine output improved. Outpatient Colon pathology showed focal mild epithelial atypia associated with ulceration. No diagnostic evidence of neoplasm/malignancy identified in the samples. She was initially on meropenem---> ertapenem. Repeat CTAP done on 06/25 with oral contrast via NG tube showed a possible small leak. An NG tube was placed. Labs noted for increase leukocytosis, WBC 15.63 on 06/27. Peritoneal fluid cultures finalized with Pseudomonas aeruginosa. Her antibiotics were changed back to meropenem on 06/27. ID consulted for Pseudomonas growing in peritoneal fluid. On my initial exam, she complains of fatigue and abdominal pain.She denies change in bowel or urine. Micro: Peritoneal fluid culture 06/21 Pseudomonas aeruginosa (peoples S) Blood culture 06/22 NG Aspiration culture 06/29 #1 Lactobacillus species Aspiration culture 06/29 #2 NGTD Antibiotics Meropenem 06/21 - 06/22, 06/27- ongoing Ertapenem #Perforated gastric ulcer/viscus w/ peritonitis and significant leakage: subsequent development of abscess vs post op seroma -Status post ex lap and washout an subsequent collection drain placement #Pseudomonas Aeruginosa peritonitis #Leukocytosis #Septic shock in the setting of perforated bowel, resolved #PCN allergy: anaphylaxis #Cipro SE; myalgias # [place] on CKD, GFR currently 55 Her initial worsening leukocytosis likely occurred in the setting of ertapenem, which would not cover Pseudomonas. Pseudomonal coverage restarted on 06/27 with meropenem. Zosyn is not an option in her case secondary to PCN allergy ( anaphylaxis) . She is not sure if she received Cephalosporins in past, so we will hold off on cefepime/Flagyl for now. She reports muscle aches with Cipro. For complicated abdominal surgery, usually require 4 days of antibiotics once source control achieved. She will need a longer course of antibiotics as she appears to have deveped an abscess vs post op seroma. Procal has trended down to 0.53. WBC initially trended down but now increasing post IR guided drain placement. . 06/28 procal down to 0.88 ( 25.8), WBC 15.31 06/29 Repeat CTAP with interval progression of the loculated fluid collections within the abdomen primarily along the left hepatic lobe. ? postoperative seromas or developing abscesses. WBC 13.28. Sp IR for collection aspiration with drain placement 06/30 feels well, WBC up to 15.22, procal down to 0.53, crp 12.25. Collection cx lactobacillus Recommendations Increase meropenem 2 g IV q8h (crcl~ 55) for Pseudomonas peritonitis. Expected duration TBD as now has new loculated collection on imaging. Monitor WBC CT AP ordered today ---> will be able to outline regimen based on results PICC in place Elinor Castillo MD Infectious Diseases Admission and Anticipated Discharge Date Admission Date: June 21, 2024 Subjective Subsequent visit was provided via telemedicine using two-way real-time interactive telecommunication between the patient and the telemedicine provider. For the duration of the visit, the provider was performing the assessment from a different facility than the patient. This includesuse of bluetooth stethoscope forauscultationperformed by the telepresenter that the telemedicine provider can hear if described in the physical exam. Retail Service Representative contact information: Please call [facility] [phone]. (Phone Number For Physician Use Only) After establishing a telemedicine visit, patient was: Patient was verified with two unique identifiers, Patient/authorized rep acknowledged consent and understanding and Gave permission to continue telehealth session Time Spent with Patient: Subsequent => 35 min She has less abdominal pain Patient is on liquid diet, soups Decreased appetitie Abscess drain in place and has some discomfort at site Physical Exam Physical Exam: NAD OOB to chair SINCERE drain Soft RUE PICC line c/d/i Results & Data Vital Signs (Past 12 Hours) Vital Signs Temp Pulse Pulse Resp BP Pulse Ox O2 Del Method 07/05/24 09:00 85 07/05/24 07:47 36.9 C 93 H 17 120/74 93 Room Air 07/05/24 02:58 36.6 C 94 H 18 119/71 93 Room Air 07/05/24 00:00 88 Laboratory Results Short CBC 07/05/24 Range/Units 06:55 WBC 10.81 H (4.8-10.8) K/ul Hgb 7.4 L (12.0-16.0) g/dl Hct 23.8 L (37.0-47.0) % Plt Count 505 H (130-400) K/uL BMP 07/05/24 06:55 Sodium 138 Potassium 4.5 Chloride 107 Carbon Dioxide 27 BUN 51 H Creatinine 0.99 Glucose 110 H Calcium 8.7 Medications Administered Current Inpatient Medications Albuterol (Albut/Ipratrop 3mg/0.5mg Neb 3 Ml Vial) 3 ml NEB Q6R PRN; Protocol PRN Reason: Shortness Of Breath Or Wheezing Stop: 07/27/24 04:23 Last Admin: 06/27/24 13:04 Dose: 3 ml Dextrose (Dextrose 50% 50 Ml Syringe) 25 - 50 ml IV UD PRN; Protocol PRN Reason: Hypoglycemia Protocol Stop: 07/23/24 13:45 Last Admin: 06/23/24 13:49 Dose: 25 ml Fluticasone Propionate (Fluticasone Propionate Na Spr 16 Gm Btl) 2 sprays NA Q24H ELSY Stop: 07/27/24 20:59 Last Admin: 07/04/24 20:58 Dose: 2 sprays Furosemide (Furosemide 40 Mg/4 Ml Vial) 40 mg IV BID17 [facility] Stop: 07/26/24 20:59 Last Admin: 07/05/24 09:35 Dose: 40 mg Glucagon (Glucagon For Inj 1 Mg Vial) 1 mg SQ UD PRN; Protocol PRN Reason: Hypoglycemia Protocol Stop: 07/23/24 13:45 Glucose (Glucose 40% Gel 15 Gm Tube) 15 - 30 gm PO UD PRN; Protocol PRN Reason: Hypoglycemia Protocol Stop: 07/23/24 13:45 Glucose (Glucose 10 Tab/Tube) 4 - 8 tab PO UD PRN; Protocol PRN Reason: Hypoglycemia Treatment Stop: 07/23/24 13:45 Heparin Sodium (Beef Lung) (Heparin 10 Unit/Ml 5 Ml Flush) 5 ml FLUSH PRN PRN PRN Reason: Flush Stop: 07/27/24 12:18 Last Admin: 07/01/24 10:44 Dose: 5 ml Hydromorphone HCl (Hydromorphone Inj 0.5 Mg/0.5 Ml Syr) 0.5 mg IV Q4H PRN PRN Reason: Severe Pain (Scale 7, 8, 9,10) Stop: 07/10/24 12:29 Last Admin: 07/05/24 07:20 Dose: 0.5 mg Hydromorphone HCl (Hydromorphone Inj 0.5 Mg/0.5 Ml Syr) 0.25 mg IV Q4H PRN PRN Reason: Moderate Pain (Scale 4, 5, 6) Stop: 07/13/24 13:11 Last Admin: 07/04/24 17:14 Dose: 0.25 mg Pantoprazole Sodium 40 mg/ (Syringe) 10 mls @ 5 mls/min IV BID@0900,2100 [facility] Stop: 07/23/24 20:59 Last Admin: 07/05/24 09:34 Dose: 5 mls/min Levothyroxine Sodium 52.5 mcg/ (Syringe) 2.625 mls @ 2 mls/min IV Q3D@0900 [facility]; Protocol Stop: 07/28/24 08:59 Last Admin: 07/04/24 09:25 Dose: 2 mls/min Dextrose (D10w) 1,000 mls @ 0 mls/hr IV .Q0M PRN PRN Reason: protocol (see label comments) Stop: 07/26/24 15:59 Meropenem 2,000 mg/ Sodium (Chloride) 100 mls @ 200 mls/hr IV Q12H [facility]; Protocol Stop: 07/07/24 11:59 Last Infusion: 07/05/24 00:30 Dose: Infused Amino Acids/Dextrose 1,065 ml/ (Nutrition (Parenteral)) 1,065 mls @ 44.4 mls/hr IV .Q24H [facility]; Protocol Stop: 07/05/24 15:59 Last Admin: 07/04/24 16:53 Dose: 44.4 mls/hr Miscellaneous (Carbohydrates For Hypoglycemia ) 15 - 30 gm PO UD PRN PRN Reason: Hypoglycemia Protocol Stop: 07/23/24 13:45 Miscellaneous (Stop Clinolipid) 1 each N/A Q24H [facility] Stop: 07/26/24 21:59 Last Admin: 07/04/24 23:36 Dose: 1 each Miscellaneous Information (Tpn/Ppn Consult Pharmacy) 1 each N/A UD PRN PRN Reason: Consult Stop: 07/25/24 08:59 Ondansetron HCl (Ondansetron Inj 2 Mg/Ml 2 Ml Vial) 4 mg IV Q6H PRN PRN Reason: Nausea And Vomiting Stop: 07/21/24 23:39 Last Admin: 06/26/24 11:33 Dose: 4 mg Oxycodone HCl (Oxycodone Hcl Ir 5 Mg Tab (Immediate Release)) 5 mg PO Q6H PRN PRN Reason: Moderate Pain (Scale 4, 5, 6) Stop: 07/14/24 16:00 Last Admin: 07/05/24 09:34 Dose: 5 mg Pramipexole Dihydrochloride (Pramipexole Dihydrochlo 0.5 Mg Tab) 0.5 mg PO HS ELSY Stop: 08/02/24 20:59 Last Admin: 07/04/24 20:58 Dose: 0.5 mg
[2024-07-05] MEDS ORDERED: [UNRECOGNIZED DRUG - OTHER] IV SCH (16:00)
[2024-07-05] MEDS ORDERED: CENTRAL TPN IV SCH (16:00)
[2024-07-05] MEDS ORDERED: CLINOLIPID 20% IV FAT EMULSION 250 ML IV SCH (16:00)
--- NOTE | 2024-07-05 16:17 | CT Scan Report ---
CT abd pelvis wo con CLINICAL HISTORY: eval undrained collections s/p repair gastric perf TECHNIQUE: Helical axial images of the abdomen and pelvis were obtained. Automated dose lowering tech niques and/or adjustment according to patient size were utilized for this exam. This exam was perfor med without intravenous contrast. CT DOSE: 1225.69 mGy.cm COMPARISON: Comparison is made to CT abdomen pelvis 06/29/2024 FINDINGS: Lower chest: Small bilateral pleural effusions are seen. There is underlying atelectasis. There is a 9 mm nodule in the right middle lobe (series 3 image 41) and a 6 mm nodule in the right middle lobe (image 24). Subcarinal lymphadenopathy is partially visualized. Liver: Unremarkable. No focal lesions are seen. Gallbladder and biliary tree: No calcified gallstones. Normal caliber wall. No intra- or extrahepatic biliary ductal dilation. Pancreas: Fatty replacement of the pancreas is seen. Spleen: Unremarkable. Adrenals: Left adrenal lipid rich adenoma is seen. Kidneys and ureters: Unremarkable. Bladder: Unremarkable. Reproductive organs: Unremarkable. Bowel: Unremarkable. Lymph nodes Retroperitoneal: Subcentimeter lymph nodes are noted. Pelvic: Unremarkable. Mesenteric: Unremarkable. Peritoneum: Peritoneal fluid and pneumoperitoneum are seen. There has been replacement of the previou s peritoneal catheter with a pigtail catheter is now located in the anterior abdomen. Overall the per ihepatic fluid collection is stable from prior exam. There is nonspecific fat stranding throughout th e peritoneum, similar to prior exam. Vessels: Atherosclerotic calcifications are seen. Abdominal wall: Midline hernia is seen with some gas noted in the surgical site. Bones: Right hip arthroplasty is seen. IMPRESSION: 1. No significant interval change in peritoneal fluid collections in this patient status post repair of gastric ulcer. The extent of pneumoperitoneum has minimally increased. There has been interval pl acement of a pigtail catheter and removal of the previously noted abdominal drain. Evaluation for olivia rility of the perihepatic collections are limited by noncontrast technique however they are essential ly unchanged in size. 2. Scattered fat stranding in the peritoneum is seen with reactive retroperitoneal lymph nodes, haily tonitis cannot be excluded. 3. Redemonstration of bilateral pleural effusions and underlying atelectasis. 4. Right lung nodules are again seen. There is subcarinal lymphadenopathy, nonspecific. ACT 112: Negative or not required by law. Electronically signed by: Kenrick Taylor M.D. 07/05/2024 4:16 PM
--- NOTE | 2024-07-05 18:04 | Hospitalist Progress Note ---
Date of Service July 05, 2024 Assessment & Plan (1) Perforated gastric ulcer: Plan: presented to the ER 06/21 with abdominal pain after undergoing a colonoscopy, during which an area of stricture with ulceration was noted. subsequently developed abdominal pain CTA/P showed pneumoperitoneum suspicious for bowel perforation. Chest x-ray suspected free air Presented in septic shock from peritonitis, taken for emergency ex lap Ex lap identified a perforated gastric ulcer and Uriel patch of perforated ulcer was performed. IN ICU she required phenylephrine, and remained intubated following her surgical procedure. initially on meropenem, was de-escalated to ertapenem. She underwent hemodialysis 06/22 for SONI & hyperkalemia and poor output. remains on lasix as fluid ahead Transfered to medical service, NGT 2X SINCERE drains are removed on 07/03, IR placed drain with serosanguineous fluid right abdomen surgery is managing advancement of diet on TPN, likely expected 07/04 last day of TPN Patient has Pseudomonas peritonitis remains on appropriately renal dosed meropenem duration yet to be determined by infectious disease advancement of diet met with some nausea if persists will consider KUB Acute blood loss anemia s/p transfusion (2) HTN (hypertension): Plan: Grade II diastolic dysfunction Echo 03/2021: LVEF hyperdynamic. Normal PA/RA pressures. Normal RV size and function. Has history of grade 2 diastolic dysfunction - anti Nebivolol held while n.p.o. (3) Colonic mass: Plan: Right-sided colonic stricture, colonic mass Following with GI as an outpatient, and recent colonoscopy as noted. Cause of pneumoperitoneum was identified as perforated gastric ulcer.Continue outpatient follow-up. Path report showed fragments of colonic mucosa with focal ulceration and reactive changes no diagnostic evidence of malignancy identified from sampled tissue Plan Synthroid converted to IV 2/2 NPO Hyperlipidemia Statin held Patient request pramipexole for restless leg syndrome this was ordered on 07/03/2024 Admission and Anticipated Discharge Date Admission Date: June 21, 2024 Subjective Patient improving tolerating diet still with persistent abdominal pain but lessening daily. Leukocytosis is also reducing Physical Exam Physical Exam: looks uncomfortable better than 1 day prior abd is quiet, hypoactive BS, soft nonacute abdomen lungs are clear Results & Data Results & Data Vital Signs (Past 12 Hours) Vital Signs Temp Pulse Pulse Resp BP Pulse Ox O2 Del Method 07/05/24 15:00 97.5 F L 91 H 16 122/72 94 Room Air 07/05/24 13:53 91 H 07/05/24 11:00 97.5 F L 103 H 17 103/64 97 Room Air 07/05/24 09:00 85 07/05/24 07:47 98.4 F 93 H 17 120/74 93 Room Air Laboratory Results Reviewed CBC reviewed chemistry reviewed infectious disease consultation PG Care Time/CCT Total # of Minutes Spent Total Time Spent with Patient: Total time spent is greater than 50% in coordination of care (as documented) at patient's floor/unit and/or counseling patient: Coding Level of Care Code 97105 SUB INP/OBS CARE 2/35MIN Diagnoses Perforated gastric ulcer K25.5 HTN (hypertension) I10 Colonic mass K63.89
[2024-07-05] MEDS ORDERED: Nursing to Pharmacy Communication SCH (19:45)
[2024-07-06 07:39] LABS: Basophils # (auto) 0.04 K/uL (0.00-0.20); Basophils % (auto) 0.4 %; Eosinophils # (auto) 0.18 K/uL (0.00-0.50); Eosinophils % (auto) 1.8 %; Hematocrit (blood only) 22.3 % (37.0-47.0); Immature Granulocytes # (auto) 0.07 K/uL (0.01-0.20); Immature Granulocytes % (auto) 0.7 %; Lymphocytes # (auto) 0.91 K/uL (1.20-3.40); Lymphocytes % (auto) 9.2 %; Mean Corpuscular Hgb Conc 31.4 g/dL (32.0-36.0); Mean Corpuscular Volume 92.5 fL (80.0-100.0); Mean Platelet Volume 10.4 fL (9.4-12.4); Monocytes % (auto) 7.1 %; Neutrophils # (auto) 7.95 K/uL (1.40-6.50); Neutrophils % (auto) 80.8 %; Platelet Count 497 K/uL (130-400); RDW Coefficient of Variation 13.7 % (11.5-14.5); RDW Standard Deviation 46.1 fL (36.4-46.3); Red Blood Count 2.41 M/uL (4.20-5.40); White Blood Count 9.85 K/ul (4.8-10.8)
[2024-07-06 08:01] LABS: Polychromasia 1+
[2024-07-06 08:05] LABS: BUN Creatinine Ratio 48.1 (10-20); Calcium 9.1 mg/dl (8.6-10.3); Creatinine Clr Calc Pharmacy 43.6 ml/min; Est GFR (African American) 59.1 ml/min; Magnesium 2.1 mg/dl (1.7-2.4); Phosphorus 3.3 mg/dl (2.5-4.9); Potassium 4.8 mmol/L (3.5-5.1)
--- NOTE | 2024-07-06 09:31 | Surgery Progress Note ---
Date of Service July 06, 2024 Assessment & Plan (1) Perforated gastric ulcer: Plan: POD 17 Exploratory Laparotomy, Gastric Washout, Repair of Perforated Gastric Ulcer 06/21/24 WBC 9.8, Hbg 7 (7.4). Vitals stable, pt afebrile CT performed yesterday which revealed midline hernia is seen with some gas noted in the surgical site with no significant interval change in peritoneal fluid collections in this patient status post repair of gastric ulcer IR drain with scant output, will remove today She has increasing drainage from her midline incision appears bilious in nature, must keep up with at least BID or more dressing changes as it becomes saturated Will continue diet, tpn, and iv abx for now Encouraged OOB to chair , increase activity, PT /OT Admission and Anticipated Discharge Date Admission Date: June 21, 2024 Subjective Patient feeling okay. Reports not much abdominal pain, but pain in back and rib cage areas. Tolerating diet , no nausea/vomiting. Having increasing drainage from midline incision. + coughing Physical Exam Physical Exam: awake/alert, no distress Respiratory: normal respiratory effort Gastrointestinal (Abdomen): Inspection/Auscultation: + abdominal surgical incision (midline incision w roberto, gauze packing in two areas,mod bilious drainage) and + abdominal surgical drain present (IR drain present with scant output); abdomen not distended Percussion/Palpation: abdomen soft; abdomen nontender Results & Data Vital Signs (Past 12 Hours) Vital Signs Temp Pulse Pulse Resp BP Pulse Ox O2 Del Method 07/06/24 07:20 80 07/06/24 07:04 98.2 F 90 18 131/73 93 Room Air 07/06/24 02:35 98.1 F 96 H 17 100/64 94 Room Air 07/05/24 23:00 98.4 F 96 H 18 112/67 94 Room Air 07/05/24 22:01 91 H PG Care Time/CCT Total # of Minutes Spent Total Time Spent with Patient: Total time spent is greater than 50% in coordination of care (as documented) at patient's floor/unit and/or counseling patient: Coding Level of Care Code 50223 Post Operative Follow-Up Diagnoses Perforated gastric ulcer K25.5
--- NOTE | 2024-07-06 10:30 | Infectious Disease Progress Nt ---
Date of Service July 06, 2024 24 hours THOMAS Drain removed yesterday Assessment & Plan (1) Status post exploratory laparotomy: (2) Perforated gastric ulcer: Plan 74-year-old female status post total right hip arthroplasty, lumbar stenosis on Nsaids, LE neuropathy, CKD who presents to the ED with abdominal pain, shortness of breath, lightheadedness. She recently underwent colonoscopy , which showed a possible stricture in her colon. On 06/20, she had a repeat colonoscopy. At the area of possible stricture, there was many ulcerated areas. GI was able to traverse the area and no stricture was present. There was concern that the ulcerations were either ischemic or due to NSAID use. Biopsies were obtained with cold forceps. Postprocedure she developed abdominal pain that persisted throughout the day with some nausea and vomiting. She began to feel lightheaded / dizzy, then cold and clammy. She presented to the ED for further evaluation. In the ED, she was afebrile, pulse 83, respiratory rate 20, blood pressure 98/55, O2 sats 98% on room air. Labs WBC 7.54, hemoglobin 10.1, hematocrit 33.4, platelets 425, BUN 53, creatinine 3.98, lactate 4--> 3.4, procalcitonin 23.10---> 25.80. Chest x-ray showed potential free air under the right hemidiaphragm. CTAP showed mild ascites and scattered pneumoperitoneum c/f perforation. The site of perforation was not clearly delineated but likely somewhere within the colon given recent colonoscopy. She underwent exploratory laparotomy, gastric washout, repair of the perforated gastric ulcer on 06/21. There was copious amounts of bile-stained purulent fluid in the peritoneum that was sent for culture. Colon did not appear to be perforated. The stomach had a large hole in the anterior portion of the antrum. There was no obvious tumor. She was intubated postop and required low-dose vasopressor support. Course complicated by oliguria but she not require HD as urine output improved. Outpatient Colon pathology showed focal mild epithelial atypia associated with ulceration. No diagnostic evidence of neoplasm/malignancy identified in the samples. She was initially on meropenem---> ertapenem. Repeat CTAP done on 06/25 with oral contrast via NG tube showed a possible small leak. An NG tube was placed. Labs noted for increase leukocytosis, WBC 15.63 on 06/27. Peritoneal fluid cultures finalized with Pseudomonas aeruginosa. Her antibiotics were changed back to meropenem on 06/27. ID consulted for Pseudomonas growing in peritoneal fluid. On my initial exam, she complains of fatigue and abdominal pain.She denies change in bowel or urine. Micro: Peritoneal fluid culture 06/21 Pseudomonas aeruginosa (peoples S) Blood culture 06/22 NG Aspiration culture 06/29 #1 Lactobacillus species Aspiration culture 06/29 #2 NGTD Antibiotics Meropenem 06/21 - 06/22, 06/27- ongoing Ertapenem #Perforated gastric ulcer/viscus w/ peritonitis and significant leakage: subsequent development of abscess vs post op seroma -Status post ex lap and washout an subsequent collection drain placement #Pseudomonas Aeruginosa peritonitis #Leukocytosis #Septic shock in the setting of perforated bowel, resolved #PCN allergy: anaphylaxis #Cipro SE; myalgias # Clayton on CKD, GFR currently 55 Her initial worsening leukocytosis likely occurred in the setting of ertapenem, which would not cover Pseudomonas. Pseudomonal coverage restarted on 06/27 with meropenem. Zosyn is not an option in her case secondary to PCN allergy ( anaphylaxis) . She is not sure if she received Cephalosporins in past, so we will hold off on cefepime/Flagyl for now. She reports muscle aches with Cipro. For complicated abdominal surgery, usually require 4 days of antibiotics once source control achieved. She will need a longer course of antibiotics as she appears to have deveped an abscess vs post op seroma. Procal has trended down to 0.53. WBC initially trended down but now increasing post IR guided drain placement. . 06/28 procal down to 0.88 ( 25.8), WBC 15.31 06/29 Repeat CTAP with interval progression of the loculated fluid collections within the abdomen primarily along the left hepatic lobe. ? postoperative seromas or developing abscesses. WBC 13.28. Sp IR for collection aspiration with drain placement 06/30 feels well, WBC up to 15.22, procal down to 0.53, crp 12.25. Collection cx lactobacillus 07/06 CT Scan: No significant interval change in peritoneal fluid collections in this patient status post repair of gastric ulcer. The extent of pneumoperitoneum has minimally increased. There has been interval placement of a pigtail catheter and removal of the previously noted abdominal drain. Evaluation for sterility of the perihepatic collections are limited by noncontrast technique however they are essentially unchanged in size. 2. Scattered fat stranding in the peritoneum is seen with reactive retroperitoneal lymph nodes, peritonitis cannot be excluded. Recommendations -Increase meropenem 2 g IV q8h (crcl~ 55) for Pseudomonas peritonitis. CT scan shows no significant improvement in fluid collections (ananth drains have been removed Exam shows significant fluid drainage from incision site this am -Plan for Meropenem 2G IV q8 hour at least 3 weeks through 07/26/24, would repeat a CT in 2 weeks time from today, if collections improved then would dc Meropenem sooner Recommend weekly CBC with diff, CMP CT A/P with IV and po contrast on/around 07/19 for collection follow up Our ID team will not monitor outpatient labs, imaging or abx, would be recommended to have [facility] to see patient. Surgery will follow patient upon discharge, can page funeral pre need consultant IDC physician for Matilde Bowen when CT imaging returns or to discuss antibiotics. ID will s/o Please call with questions Elinor Castillo MD Infectious Diseases Admission and Anticipated Discharge Date Admission Date: June 21, 2024 Subjective Subsequent visit was provided via telemedicine using two-way real-time interactive telecommunication between the patient and the telemedicine provider. For the duration of the visit, the provider was performing the assessment from a different facility than the patient. This includesuse of bluetooth steth oscope forauscultationperformed by the telepresenter that the telemedicine provider can hear if described in the physical exam. Fulfillment Specialist contact information: Please call [facility] [phone]. (Phone Number For Physician Use Only) After establishing a telemedicine visit, patient was: Patient was verified with two unique identifiers, Patient/authorized rep acknowledged consent and understanding and Gave permission to continue telehealth session Time Spent with Patient: Subsequent => 35 min Patient reports "Gushing" of fluid when she got up Physical Exam Physical Exam: NAD Drains removed PICC RUE c/d/i roberto intact green fluid discharge Results & Data Vital Signs (Past 12 Hours) Vital Signs Temp Pulse Pulse Resp BP Pulse Ox O2 Del Method 07/06/24 07:20 80 07/06/24 07:04 36.8 C 90 18 131/73 93 Room Air 07/06/24 02:35 36.7 C 96 H 17 100/64 94 Room Air 07/05/24 23:00 36.9 C 96 H 18 112/67 94 Room Air Laboratory Results Laboratory Results - last 48 hr 07/04/24 07/04/24 07/05/24 11:14 18:00 00:23 WBC RBC Hgb Hct MCV MCH MCHC RDW Std Deviation RDW Coeff of Rafael Plt Count MPV Immature Gran % (Auto) Neut % (Auto) Lymph % (Auto) Isabella % (Auto) Eos % (Auto) Baso % (Auto) Neut # (Auto) Lymph # (Auto) Isabella # (Auto) Eos # (Auto) Baso # (Auto) Immature Gran # (Auto) Polychromasia Sodium Potassium Chloride Carbon Dioxide Anion Gap BUN Creatinine Est Cr Clr Drug Dosing Est GFR ( Amer) Est GFR (Non-Af Amer) BUN/Creatinine Ratio Glucose POC Glucose 145 H 141 H 127 H Calcium Phosphorus Magnesium 07/05/24 07/05/24 07/05/24 06:05 06:55 12:06 WBC 10.81 H RBC 2.57 L Hgb 7.4 L Hct 23.8 L MCV 92.6 MCH 28.8 MCHC 31.1 L RDW Std Deviation 46.5 H RDW Coeff of Rafael 13.8 Plt Count 505 H MPV 10.6 Immature Gran % (Auto) 1.1 Neut % (Auto) 79.8 Lymph % (Auto) 10.0 Isabella % (Auto) 6.6 Eos % (Auto) 2.2 Baso % (Auto) 0.3 Neut # (Auto) 8.63 H Lymph # (Auto) 1.08 L Isabella # (Auto) 0.71 H Eos # (Auto) 0.24 Baso # (Auto) 0.03 Immature Gran # (Auto) 0.12 Polychromasia 1+ Sodium 138 Potassium 4.5 Chloride 107 Carbon Dioxide 27 Anion Gap 4 BUN 51 H Creatinine 0.99 Est Cr Clr Drug Dosing 46.6 Est GFR ( Amer) 64.2 Est GFR (Non-Af Amer) 55.4 BUN/Creatinine Ratio 51.5 H Glucose 110 H POC Glucose 120 H 136 H Calcium 8.7 Phosphorus 3.3 Magnesium 2.1 07/06/24 06:32 WBC 9.85 RBC 2.41 L Hgb 7.0 L Hct 22.3 L MCV 92.5 MCH 29.0 MCHC 31.4 L RDW Std Deviation 46.1 RDW Coeff of Rafael 13.7 Plt Count 497 H MPV 10.4 Immature Gran % (Auto) 0.7 Neut % (Auto) 80.8 Lymph % (Auto) 9.2 Isabella % (Auto) 7.1 Eos % (Auto) 1.8 Baso % (Auto) 0.4 Neut # (Auto) 7.95 H Lymph # (Auto) 0.91 L Isabella # (Auto) 0.70 H Eos # (Auto) 0.18 Baso # (Auto) 0.04 Immature Gran # (Auto) 0.07 Polychromasia 1+ Sodium 139 Potassium 4.8 Chloride 107 Carbon Dioxide 27 Anion Gap 5 BUN 51 H Creatinine 1.06 Est Cr Clr Drug Dosing 43.6 Est GFR ( Amer) 59.1 Est GFR (Non-Af Amer) 51.0 BUN/Creatinine Ratio 48.1 H Glucose 80 POC Glucose Calcium 9.1 Phosphorus 3.3 Magnesium 2.1 Medications Administered Current Inpatient Medications Albuterol (Albut/Ipratrop 3mg/0.5mg Neb 3 Ml Vial) 3 ml NEB Q6R PRN; Protocol PRN Reason: Shortness Of Breath Or Wheezing Stop: 07/27/24 04:23 Last Admin: 06/27/24 13:04 Dose: 3 ml Dextrose (Dextrose 50% 50 Ml Syringe) 25 - 50 ml IV UD PRN; Protocol PRN Reason: Hypoglycemia Protocol Stop: 07/23/24 13:45 Last Admin: 06/23/24 13:49 Dose: 25 ml Fluticasone Propionate (Fluticasone Propionate Na Spr 16 Gm Btl) 2 sprays NA Q24H ELSY Stop: 07/27/24 20:59 Last Admin: 07/05/24 20:10 Dose: 2 sprays Furosemide (Furosemide 40 Mg/4 Ml Vial) 40 mg IV [id number] ELSY Stop: 07/26/24 20:59 Last Admin: 07/06/24 08:22 Dose: 40 mg Glucagon (Glucagon For Inj 1 Mg Vial) 1 mg SQ UD PRN; Protocol PRN Reason: Hypoglycemia Protocol Stop: 07/23/24 13:45 Glucose (Glucose 40% Gel 15 Gm Tube) 15 - 30 gm PO UD PRN; Protocol PRN Reason: Hypoglycemia Protocol Stop: 07/23/24 13:45 Glucose (Glucose 10 Tab/Tube) 4 - 8 tab PO UD PRN; Protocol PRN Reason: Hypoglycemia Treatment Stop: 07/23/24 13:45 Heparin Sodium (Beef Lung) (Heparin 10 Unit/Ml 5 Ml Flush) 5 ml FLUSH PRN PRN PRN Reason: Flush Stop: 07/27/24 12:18 Last Admin: 07/01/24 10:44 Dose: 5 ml Hydromorphone HCl (Hydromorphone Inj 0.5 Mg/0.5 Ml Syr) 0.5 mg IV Q4H PRN PRN Reason: Severe Pain (Scale 7, 8, 9,10) Stop: 07/10/24 12:29 Last Admin: 07/06/24 07:06 Dose: 0.5 mg Hydromorphone HCl (Hydromorphone Inj 0.5 Mg/0.5 Ml Syr) 0.25 mg IV Q4H PRN PRN Reason: Moderate Pain (Scale 4, 5, 6) Stop: 07/13/24 13:11 Last Admin: 07/05/24 17:20 Dose: 0.25 mg Pantoprazole Sodium 40 mg/ (Syringe) 10 mls @ 5 mls/min IV BID@0900,2100 ELSY Stop: 07/23/24 20:59 Last Admin: 07/06/24 08:23 Dose: 5 mls/min Levothyroxine Sodium 52.5 mcg/ (Syringe) 2.625 mls @ 2 mls/min IV Q3D@0900 ELSY; Protocol Stop: 07/28/24 08:59 Last Admin: 07/04/24 09:25 Dose: 2 mls/min Meropenem 2,000 mg/ Sodium (Chloride) 100 mls @ 200 mls/hr IV Q12H ELSY; Protocol Stop: 07/07/24 11:59 Last Infusion: 07/05/24 23:43 Dose: Infused Miscellaneous (Carbohydrates For Hypoglycemia ) 15 - 30 gm PO UD PRN PRN Reason: Hypoglycemia Protocol Stop: 07/23/24 13:45 Ondansetron HCl (Ondansetron Inj 2 Mg/Ml 2 Ml Vial) 4 mg IV Q6H PRN PRN Reason: Nausea And Vomiting Stop: 07/21/24 23:39 Last Admin: 06/26/24 11:33 Dose: 4 mg Oxycodone HCl (Oxycodone Hcl Ir 5 Mg Tab (Immediate Release)) 5 mg PO Q6H PRN PRN Reason: Moderate Pain (Scale 4, 5, 6) Stop: 07/14/24 16:00 Last Admin: 07/06/24 09:29 Dose: 5 mg Pramipexole Dihydrochloride (Pramipexole Dihydrochlo 0.5 Mg Tab) 0.5 mg PO [facility] Stop: 08/02/24 20:59 Last Admin: 07/05/24 20:11 Dose: 0.5 mg
--- NOTE | 2024-07-06 16:28 | Hospitalist Progress Note ---
Date of Service July 06, 2024 Assessment & Plan (1) Perforated gastric ulcer: Plan: presented to the ER 06/21 with abdominal pain after undergoing a colonoscopy, during which an area of stricture with ulceration was noted. subsequently developed abdominal pain CTA/P showed pneumoperitoneum suspicious for bowel perforation. Chest x-ray suspected free air Presented in septic shock from peritonitis, taken for emergency ex lap Ex lap identified a perforated gastric ulcer and Uriel patch of perforated ulcer was performed. IN ICU she required phenylephrine, and remained intubated following her surgical procedure. Remains on meropenem at this time She underwent hemodialysis 06/22 for SONI & hyperkalemia and poor output. remains on lasix as fluid ahead Transferred to medical service, NGT 2X SINCERE drains are removed on 07/03, IR placed drain with serosanguineous fluid right abdomen surgery is managing advancement of diet TPN has been discontinued as patient is taking oral diet Patient has Pseudomonas peritonitis remains on appropriately renal dosed meropenem duration yet to be determined by infectious disease still with drainage from her operative incisions Acute blood loss anemia s/p transfusion hemoglobin is trended downward we will continue to survey and transfuse as needed (2) HTN (hypertension): Plan: Grade II diastolic dysfunction Echo 03/2021: LVEF hyperdynamic. Normal PA/RA pressures. Normal RV size and function. Has history of grade 2 diastolic dysfunction - anti Nebivolol held while n.p.o. (3) Colonic mass: Plan: Right-sided colonic stricture, colonic mass Following with GI as an outpatient, and recent colonoscopy as noted. Cause of pneumoperitoneum was identified as perforated gastric ulcer.Continue outpatient follow-up. Path report showed fragments of colonic mucosa with focal ulceration and reactive changes no diagnostic evidence of malignancy identified from sampled tissue Plan Synthroid converted to IV 2/2 NPO Hyperlipidemia Statin held Patient request pramipexole for restless leg syndrome this was ordered on 07/03/2024 Admission and Anticipated Discharge Date Admission Date: June 21, 2024 Subjective Patient sitting upright eating food she has reduction in her pain. There is persistent fluid collections on CT scan from 07/05/2024 however her physiology and white count are improving she is mildly anemic we will continue to follow for need for augmentation Duration of antibiotic care is yet to be determined Physical Exam Physical Exam: Improving daily less pain today abd is now with hypoactive bowel sounds, soft nonacute abdomen lungs are clear Results & Data Results & Data Vital Signs (Past 12 Hours) Vital Signs Temp Pulse Pulse Resp BP Pulse Ox O2 Del Method 07/06/24 15:58 98.2 F 88 18 109/69 97 Room Air 07/06/24 15:45 80 07/06/24 11:02 97.3 F L 104 H 18 125/75 96 Room Air 07/06/24 07:20 80 07/06/24 07:04 98.2 F 90 18 131/73 93 Room Air Laboratory Results Reviewed CBC reviewed chemistry PG Care Time/CCT Total # of Minutes Spent Total Time Spent with Patient: Total time spent is greater than 50% in coordination of care (as documented) at patient's floor/unit and/or counseling patient: Coding Level of Care Code 24402 SUB INP/OBS CARE 3/50MIN Diagnoses Perforated gastric ulcer K25.5 HTN (hypertension) I10 Colonic mass K63.89
[2024-07-07 07:38] LABS: Hematocrit (blood only) 21.9 % (37.0-47.0); Hemoglobin 6.8 g/dl (12.0-16.0); Mean Corpuscular Hemoglobin 28.7 pg (25.0-34.0); Mean Corpuscular Hgb Conc 31.1 g/dL (32.0-36.0); Mean Corpuscular Volume 92.4 fL (80.0-100.0); Mean Platelet Volume 10.1 fL (9.4-12.4); Platelet Count 487 K/uL (130-400); RDW Coefficient of Variation 13.9 % (11.5-14.5); RDW Standard Deviation 46.5 fL (36.4-46.3); Red Blood Count 2.37 M/uL (4.20-5.40); White Blood Count 8.78 K/ul (4.8-10.8)
[2024-07-07] MEDS ORDERED: SODIUM CHLORIDE 0.9% 250 ML IV PRN (07:45)
[2024-07-07 08:11] LABS: Anisocytosis Present; Basophils # (auto) 0.03 K/uL (0.00-0.20); Basophils % (auto) 0.3 %; Eosinophils # (auto) 0.21 K/uL (0.00-0.50); Eosinophils % (auto) 2.4 %; Immature Granulocytes # (auto) 0.07 K/uL (0.01-0.20); Immature Granulocytes % (auto) 0.8 %; Lymphocytes # (auto) 0.85 K/uL (1.20-3.40); Lymphocytes % (auto) 9.7 %; Neutrophils # (auto) 6.92 K/uL (1.40-6.50); Neutrophils % (auto) 78.8 %; Polychromasia 1+
[2024-07-07 08:12] LABS: Anion Gap 5 (3-11); BUN Creatinine Ratio 45.8 (10-20); Blood Urea Nitrogen 49 mg/dl (6-23); Carbon Dioxide 27 mmol/L (21-32); Chloride 105 mmol/L (98-107); Creatinine Clr Calc Pharmacy 43.2 ml/min; Est GFR (African American) 58.4 ml/min; Est GFR (Non-African American) 50.4 ml/min; Glucose 80 mg/dl (70-99(Fasting)); Iron < 10 mcg/dl (35-150); Phosphorus 3.2 mg/dl (2.5-4.9); Potassium 3.8 mmol/L (3.5-5.1); Sodium 137 mmol/L (136-145); Unsaturated Iron Binding Cap 183 mcg/dl (155-355)
--- NOTE | 2024-07-07 11:43 | Surgery Progress Note ---
Date of Service July 07, 2024 Assessment & Plan (1) Perforated gastric ulcer: Plan: POD 18 Exploratory Laparotomy, Gastric Washout, Repair of Perforated Gastric Ulcer 06/21/24 WBC 8.7, Hbg 6.8. Vitals stable, pt afebrile. She is receiving 1 unit of pRBC currently She continues to have moderate amount of drainage from her midline incision appears more stool like in nature, must keep up with at least BID or more dressing changes as it becomes saturated Couple more roberto removed. Concerning for possible ECF, will continue to monitor it for now. okay to continue diet. Will order abdominal binder Will continue diet, tpn, and iv abx for now Encouraged OOB to chair , increase activity, PT /OT Admission and Anticipated Discharge Date Admission Date: June 21, 2024 Supervising Physician Co-Signing Physician Notes Patient seen and examined, labs and imaging reviewed, agree with above. Status post laparotomy with repair large perforated gastric ulcer. She is tolerating her diet. She is receiving blood due to persistent anemia due to illness and surgery. Her wound was opened up more at the inferior portion and is putting out a fair amount of purulent fluid. Otherwise her incision looks healthy, the fascia appears to be intact. WBC normal. Continue with local wound care. May need a wound VAC to control the fluid. There is also concern for possible developing fistula given the amount of drainage, but we will continue to monitor. No surgical intervention will be performed for this, it would be supportive care. Subjective Patient feeling okay. Reports intermittent cramp of L sided abdomen. Tolerating diet, no nausea/vomiting. Physical Exam Physical Exam: awake/alert, no distress Respiratory: normal respiratory effort Gastrointestinal (Abdomen): Inspection/Auscultation: + abdominal surgical incision (midline incision w roberto, gauze packing in two areas,mod stool like outpt) and + abdominal surgical drain present (IR drain present with scant output); abdomen not distended Percussion/Palpation: abdomen soft; abdomen nontender Results & Data Vital Signs (Past 12 Hours) Vital Signs Temp Pulse Pulse Resp BP BP Pulse Ox 07/07/24 11:23 98.2 F 96 H 18 129/77 07/07/24 11:08 97 H 18 117/74 92 07/07/24 10:47 98.2 F 92 H 18 105/68 91 07/07/24 07:28 85 07/07/24 07:10 98.4 F 88 18 119/69 91 07/07/24 02:46 97.7 F 87 17 112/67 91 O2 Del Method 07/07/24 11:23 07/07/24 11:08 07/07/24 10:47 07/07/24 07:28 07/07/24 07:10 Room Air 07/07/24 02:46 Room Air PG Care Time/CCT Total # of Minutes Spent Total Time Spent with Patient: Total time spent is greater than 50% in coordination of care (as documented) at patient's floor/unit and/or counseling patient: Coding Level of Care Code 59157 Post Operative Follow-Up Diagnoses Perforated gastric ulcer K25.5
--- NOTE | 2024-07-07 14:52 | Hospitalist Progress Note ---
Date of Service July 07, 2024 Assessment & Plan (1) Perforated gastric ulcer: Plan: presented to the ER 06/21 with abdominal pain after undergoing a colonoscopy, during which an area of stricture with ulceration was noted. subsequently developed abdominal pain CTA/P showed pneumoperitoneum suspicious for bowel perforation. Chest x-ray suspected free air Presented in septic shock from peritonitis, taken for emergency ex lap Ex lap identified a perforated gastric ulcer and Uriel patch of perforated ulcer was performed. IN ICU she required phenylephrine, and remained intubated following her surgical procedure. Remains on meropenem at this time She underwent hemodialysis 06/22 for SONI & hyperkalemia and poor output. remains on lasix as fluid ahead Transferred to medical service, NGT 2X SINCERE drains are removed on 07/03, IR placed drain with serosanguineous fluid right abdomen surgery is managing advancement of diet TPN has been discontinued as patient is taking oral diet Patient has Pseudomonas peritonitis remains on appropriately renal dosed meropenem duration yet to be determined by infectious disease still with drainage from her operative incisions Acute blood loss anemia s/p transfusion hemoglobin is trended downward, t ransfuse 1 prbc (2) HTN (hypertension): Plan: Grade II diastolic dysfunction Echo 03/2021: LVEF hyperdynamic. Normal PA/RA pressures. Normal RV size and function. Has history of grade 2 diastolic dysfunction Nebivolol held while n.p.o. (3) Colonic mass: Plan: Right-sided colonic stricture, colonic mass Following with GI as an outpatient, and recent colonoscopy as noted. Cause of pneumoperitoneum was identified as perforated gastric ulcer.Continue outpatient follow-up. Path report showed fragments of colonic mucosa with focal ulceration and reactive changes no diagnostic evidence of malignancy identified from sampled tissue Plan Synthroid converted to IV 2/2 NPO Hyperlipidemia Statin held Patient request pramipexole for restless leg syndrome this was ordered on 07/03/2024 Admission and Anticipated Discharge Date Admission Date: June 21, 2024 Subjective pt feels fatigued and has some pain. did also have some nausea now more anemia, requiring a transfusion still some drainage from wounds Physical Exam Physical Exam: Improving daily less pain today abd is now with hypoactive bowel sounds, soft nonacute abdomen still with drainage lungs are clear Results & Data Results & Data Vital Signs (Past 12 Hours) Vital Signs Temp Pulse Pulse Resp BP BP Pulse Ox 07/07/24 14:32 99 H 07/07/24 14:13 98.1 F 100 H 20 120/67 92 07/07/24 12:48 98.1 F 98 H 20 124/79 94 07/07/24 11:53 98.4 F 88 18 120/76 93 07/07/24 11:23 98.2 F 96 H 18 129/77 07/07/24 11:08 97 H 18 117/74 92 07/07/24 10:47 98.2 F 92 H 18 105/68 91 07/07/24 07:28 85 07/07/24 07:10 98.4 F 88 18 119/69 91 O2 Del Method 07/07/24 14:32 07/07/24 14:13 07/07/24 12:48 07/07/24 11:53 07/07/24 11:23 07/07/24 11:08 07/07/24 10:47 07/07/24 07:28 07/07/24 07:10 Room Air Laboratory Results review cbc review chemistry PG Care Time/CCT Total # of Minutes Spent Total Time Spent with Patient: Total time spent is greater than 50% in coordination of care (as documented) at patient's floor/unit and/or counseling patient: Coding Level of Care Code 53232 SUB INP/OBS CARE 2/35MIN Diagnoses Perforated gastric ulcer K25.5 HTN (hypertension) I10 Colonic mass K63.89
[2024-07-07 16:28] LABS: Hematocrit (blood only) 27.8 % (37.0-47.0); Hemoglobin 8.7 g/dl (12.0-16.0)
[2024-07-08] MEDS: LEVOTHYROXINE SODIUM 75 MCG TABLET PO SCH (05:57)
[2024-07-08 08:06] LABS: Basophils # (auto) 0.03 K/uL (0.00-0.20); Basophils % (auto) 0.3 %; Eosinophils # (auto) 0.22 K/uL (0.00-0.50); Eosinophils % (auto) 2.3 %; Hematocrit (blood only) 25.9 % (37.0-47.0); Hemoglobin 8.5 g/dl (12.0-16.0); Immature Granulocytes # (auto) 0.07 K/uL (0.01-0.20); Immature Granulocytes % (auto) 0.7 %; Lymphocytes # (auto) 0.76 K/uL (1.20-3.40); Mean Corpuscular Hemoglobin 28.7 pg (25.0-34.0); Mean Corpuscular Hgb Conc 32.8 g/dL (32.0-36.0); Mean Corpuscular Volume 87.5 fL (80.0-100.0); Monocytes # (auto) 0.75 K/uL (0.11-0.59); Monocytes % (auto) 7.9 %; Neutrophils # (auto) 7.68 K/uL (1.40-6.50); Neutrophils % (auto) 80.8 %; Platelet Count 456 K/uL (130-400); RDW Standard Deviation 51.4 fL (36.4-46.3); Red Blood Count 2.96 M/uL (4.20-5.40); White Blood Count 9.51 K/ul (4.8-10.8)
--- NOTE | 2024-07-08 10:52 | Surgery Progress Note ---
Date of Service July 08, 2024 Assessment & Plan (1) Status post exploratory laparotomy: Plan: Status post repair of perforated gastric ulcer. Output from lower portion of incision is concerning for enterocutaneous fistula. CT scan abdomen with oral and IV contrast If evidence of fistula, then we will make her n.p.o. and revert to TPN and attempts to decrease output Would not recommend any surgery for fistula except to evaluate the wound more closely and better control the drainage, but this would be performed next week. Will likely need wound VAC Continue antibiotics (2) Perforated gastric ulcer: Admission and Anticipated Discharge Date Admission Date: June 21, 2024 Subjective Status post laparotomy and repair of large perforated gastric ulcer with Uriel patch. Pain moderately controlled, tolerating diet, reports no bowel movement in past day or so. Dressing changed yesterday afternoon for saturation. She feels that it is saturated after sitting up in a chair. Physical Exam Constitutional: WD/WN, vitals as above Gastrointestinal (Abdomen): Inspection/Auscultation: + abdominal surgical incision (Fair amount of drainage from inferior portion of incision, skin irritation) Percussion/Palpation: + abdomen tender (Appropriately tender to palpation) and abdomen soft; no guarding and abdomen not rigid Results & Data Vital Signs (Past 12 Hours) Vital Signs Temp Pulse Pulse Resp BP Pulse Ox O2 Del Method 07/08/24 08:07 36.9 C 90 18 144/77 H 92 Room Air 07/08/24 07:16 77 07/08/24 03:57 36.8 C 92 H 16 126/75 92 Room Air 07/08/24 00:00 97 H Laboratory Results Laboratory Results - last 24 hr 07/07/24 07/07/24 07/08/24 08:12 15:29 07:40 WBC 9.51 RBC 2.96 L Hgb 8.7 L 8.5 L Hct 27.8 L 25.9 L MCV 87.5 D MCH 28.7 MCHC 32.8 RDW Std Deviation 51.4 H RDW Coeff of Rafael 16.0 H Plt Count 456 H MPV 10.0 Immature Gran % (Auto) 0.7 Neut % (Auto) 80.8 Lymph % (Auto) 8.0 Swisher % (Auto) 7.9 Eos % (Auto) 2.3 Baso % (Auto) 0.3 Neut # (Auto) 7.68 H Lymph # (Auto) 0.76 L Swisher # (Auto) 0.75 H Eos # (Auto) 0.22 Baso # (Auto) 0.03 Immature Gran # (Auto) 0.07 Blood Type AB Positive Antibody Screen NEGATIVE Crossmatch See Detail PG Care Time/CCT Total # of Minutes Spent Total Time Spent with Patient: Total time spent is greater than 50% in coordination of care (as documented) at patient's floor/unit and/or counseling patient: Coding Level of Care Code None Diagnoses Status post exploratory laparotomy Z98.890 Perforated gastric ulcer K25.5
[2024-07-08] MEDS: OPTIRAY 320 100ml IV ONE (14:13)
--- NOTE | 2024-07-08 14:44 | CT Scan Report ---
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 Automated dose lowering techniques and/or adjustment according to patient size were utilized for this exam. This e xam was performed with intravenous contrast. CT DOSE: 1248.41 mGy.cm COMPARISON: Comparison is made to CT abdomen pelvis the 24th FINDINGS: Lower chest: Small left and trace right atelectasis is seen. Partial visualization of a subcarinal l ymphadenopathy and pulmonary nodules, unchanged Liver: Unremarkable. No focal lesions are seen. Gallbladder and biliary tree: Cystic fluid is seen without lesly wall thickening. No intra- or extrahepatic biliary ductal dilation . Pancreas: Unremarkable, no focal lesions. Spleen: Splenule is incidentally noted. Adrenals: Left renal adenoma is unchanged. Kidneys and ureters: Unremarkable. Bladder: Unremarkable. Reproductive organs: Unremarkable. Bowel: Unremarkable. Lymph nodes Retroperitoneal: Subcentimeter lymph nodes are noted. Pelvic: Unremarkable. Mesenteric: Unremarkable. Peritoneum: Redemonstration of pneumoperitoneum which may be slight decrease in conspicuity compared to the prior exam. Peritoneal stranding and encapsulated fluid is seen. The collections about the leroy er and spleen appear stable to minimally decreased in size. Previously noted peritoneal catheter has been removed. Vessels: Atherosclerotic calcifications are seen. Abdominal wall: Midline incision is seen with extravasation of enteric contrast as well as gas. 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 Incision dehiscence is seen, new from prior. Bones: Degenerative changes in the visualized spine. Grade 1 anterolisthesis seen at L4-L5. Right hip arthroplasty is seen. IMPRESSION: 1. 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 2. Peritoneal stranding, pneumoperitoneum, and scattered fluid collections are similar to prior exam . Lymphadenopathy is likely reactive. Interval removal of pigtail catheter. 3. Redemonstration of bilateral pleural effusions, lung nodules, and subcarinal lymphadenopathy. ACT 112: Negative or not required by law. Electronically signed by: Kenrick Taylor M.D. 07/08/2024 2:41 PM
--- NOTE | 2024-07-08 15:01 | Communication Note ---
Date of Service: July 08, 2024 CT scan obtained today and confirmed findings of an enterocutaneous fistula. We will therefore downgrade her diet to NPO and start parenteral nutrition. Pharmacy can send up a bag of Clinimix for today and resume formal TPN tomorrow. Hopefully this will help slow down output from her midline by limiting her oral intake. Throughout the weekend please keep up with dressing changes at least BID, but likely more frequent as they become saturated as she is showing some areas of skin irritation if the drainage has contact with the skin for too long. Continue IV abx. Will consult wound care to see patient wednesday for recommendations. Patient was informed this is that this is the likely scenario this AM and expressed understanding.
--- NOTE | 2024-07-08 15:10 | Hospitalist Progress Note ---
Date of Service July 08, 2024 Assessment & Plan (1) Perforated gastric ulcer: Plan: presented to the ER 06/21 with abdominal pain after undergoing a colonoscopy, during which an area of stricture with ulceration was noted. subsequently developed abdominal pain CTA/P showed pneumoperitoneum suspicious for bowel perforation. Chest x-ray suspected free air Presented in septic shock from peritonitis, taken for emergency ex lap Ex lap identified a perforated gastric ulcer and Uriel patch of perforated ulcer was performed. IN ICU she required phenylephrine, and remained intubated following her surgical procedure. Remains on meropenem at this time She underwent hemodialysis 06/22 for SONI & hyperkalemia and poor output. remains on lasix as fluid ahead Transferred to medical service, NGT 2X SINCERE drains are removed on 07/03, IR placed drain with serosanguineous fluid right abdomen surgery has returned to NPO status as enterocutaneous fistulae is confirmed on CT into dehissed abdominal wound TPN restarted Patient has Pseudomonas peritonitis remains on appropriately renal dosed meropenem duration yet to be determined by infectious disease still with drainage from her operative incisions Newly heard Systolic murmur will have Echo to eval for endocarditis Acute blood loss anemia s/p transfusion hemoglobin is trended downward, transfuse 1 prbc (2) HTN (hypertension): Plan: Grade II diastolic dysfunction Echo 03/2021: LVEF hyperdynamic. Normal PA/RA pressures. Normal RV size and function. Has history of grade 2 diastolic dysfunction Nebivolol held (3) Colonic mass: Plan: Right-sided colonic stricture, colonic mass Following with GI as an outpatient, and recent colonoscopy as noted. Cause of pneumoperitoneum was identified as perforated gastric ulcer.Continue outpatient follow-up. Path report showed fragments of colonic mucosa with focal ulceration and reactive changes no diagnostic evidence of malignancy identified from sampled tissue Plan Synthroid converted to IV 2/2 NPO Hyperlipidemia Statin held Patient request pramipexole for restless leg syndrome this was ordered on 07/03/2024, now npo except meds Admission and Anticipated Discharge Date Admission Date: June 21, 2024 Subjective pt feels improved, still with some drainage from her abdominal wound which continues to be moderate, CT of abdomen confirms enterocutaneous fistulae return to NPO status and start TPN now new heard systolic murmur is heard, there is no documentation of murmur in the past, there is no gram positive bacteremia but will have an Echo to eval Physical Exam Physical Exam: awake and pleasant cardiac is regular with 3/6 ANTONIETA more prominent in RUSB lungs diminished at the bases abd with wound with dressing that is wet Results & Data Results & Data Vital Signs (Past 12 Hours) Vital Signs Temp Pulse Pulse Resp BP Pulse Ox O2 Del Method 07/08/24 14:57 91 H 07/08/24 11:15 97.9 F 78 16 149/82 H 07/08/24 08:07 98.4 F 90 18 144/77 H 92 Room Air 07/08/24 07:16 77 07/08/24 03:57 98.2 F 92 H 16 126/75 92 Room Air Laboratory Results review cbc review chemistry PG Care Time/CCT Total # of Minutes Spent Total Time Spent with Patient: Total time spent is greater than 50% in coordination of care (as documented) at patient's floor/unit and/or counseling patient: Coding Level of Care Code 22774 SUB INP/OBS CARE 3/50MIN Diagnoses Perforated gastric ulcer K25.5 HTN (hypertension) I10 Colonic mass K63.89
[2024-07-08] MEDS ORDERED: DEXTROSE 10% 1,000 ML IV PRN (15:18)
[2024-07-08] MEDS ORDERED: TPN/PPN CONSULT PHARMACY PRN (15:21)
[2024-07-08] MEDS: CLINOLIPID 20% IV FAT EMULSION 250 ML IV SCH (16:33)
[2024-07-08] MEDS: AA 8%/D14W 1L 1,000 ML in Central TPN bag 0 ML IV SCH (16:38)
[2024-07-08] MEDS: STOP CLINOLIPID SCH (22:45)
[2024-07-09 07:56] LABS: BUN Creatinine Ratio 41.3 (10-20); Basophils # (auto) 0.01 K/uL (0.00-0.20); Basophils % (auto) 0.1 %; Bilirubin,Total 0.5 mg/dl (0.2-1.0); Calcium 9.2 mg/dl (8.6-10.3); Creatinine Clr Calc Pharmacy 40.4 ml/min; Eosinophils # (auto) 0.25 K/uL (0.00-0.50); Eosinophils % (auto) 2.8 %; Est GFR (African American) 57.1 ml/min; Est GFR (Non-African American) 49.3 ml/min; Hematocrit (blood only) 26.6 % (37.0-47.0); Hemoglobin 8.3 g/dl (12.0-16.0); Immature Granulocytes # (auto) 0.06 K/uL (0.01-0.20); Immature Granulocytes % (auto) 0.7 %; Lymphocytes # (auto) 0.65 K/uL (1.20-3.40); Lymphocytes % (auto) 7.3 %; Magnesium 2.1 mg/dl (1.7-2.4); Mean Corpuscular Hgb Conc 31.2 g/dL (32.0-36.0); Mean Corpuscular Volume 89.9 fL (80.0-100.0); Mean Platelet Volume 10.2 fL (9.4-12.4); Monocytes % (auto) 7.8 %; Neutrophils # (auto) 7.25 K/uL (1.40-6.50); Neutrophils % (auto) 81.3 %; Phosphorus 2.7 mg/dl (2.5-4.9); Platelet Count 449 K/uL (130-400); Potassium 3.5 mmol/L (3.5-5.1); RDW Coefficient of Variation 15.1 % (11.5-14.5); RDW Standard Deviation 49.7 fL (36.4-46.3); Red Blood Count 2.96 M/uL (4.20-5.40); White Blood Count 8.92 K/ul (4.8-10.8)
[2024-07-09] MEDS: POTASSIUM PHOSPHATE 15 MMOL in SODIUM CHLORIDE 0.9% 250 ML IV ONE (09:54)
--- NOTE | 2024-07-09 10:11 | Surgery Progress Note ---
Date of Service July 09, 2024 Assessment & Plan (1) Status post exploratory laparotomy: Plan: Status post repair of perforated gastric ulcer. Now with enterocutaneous fistula N.p.o., TPN Goal is to convert high-output fistula into a low output fistula Also need to control skin irritation and drainage, we will consult wound care and tentatively plan for a wound VAC with a white sponge Continue antibiotic PT/OT, out of bed to chair, ambulate, I-S Patient will likely need home health care placement, case management involvement (2) Perforated gastric ulcer: Admission and Anticipated Discharge Date Admission Date: June 21, 2024 Subjective 3 weeks status post laparotomy with repair of perforated gastric ulcer, recent history of drainage of abdominal fluid collections. CT scan yesterday confirmed presence of anterior cutaneous fistula, there is contrast progressing beyond this point. She was n.p.o. and restarted on TPN. She thinks the output has significantly decreased since that point. Physical Exam Constitutional: WD/WN, vitals as above Gastrointestinal (Abdomen): Inspection/Auscultation: + abdominal surgical incision (Fair amount of drainage from inferior portion of incision, skin irritation) Percussion/Palpation: + abdomen tender (Appropriately tender to palpation) and abdomen soft; no guarding and abdomen not rigid Results & Data Vital Signs (Past 12 Hours) Vital Signs Temp Pulse Pulse Resp BP Pulse Ox O2 Del Method 07/09/24 07:42 37.1 C 91 H 20 121/75 96 Nasal Cannula 07/09/24 07:21 99 H 07/09/24 03:45 37.1 C 81 16 124/72 95 Nasal Cannula 07/08/24 23:56 100 H 07/08/24 23:44 93 Nasal Cannula 07/08/24 23:00 36.7 C 82 16 125/73 90 Room Air O2 Flow Rate 07/09/24 07:42 2 07/09/24 07:21 07/09/24 03:45 2 07/08/24 23:56 07/08/24 23:44 2 07/08/24 23:00 Laboratory Results Laboratory Results - last 24 hr 07/09/24 07/09/24 00:04 07:15 WBC 8.92 RBC 2.96 L Hgb 8.3 L Hct 26.6 L MCV 89.9 MCH 28.0 MCHC 31.2 L RDW Std Deviation 49.7 H RDW Coeff of Rafael 15.1 H Plt Count 449 H MPV 10.2 Immature Gran % (Auto) 0.7 Neut % (Auto) 81.3 Lymph % (Auto) 7.3 [place] % (Auto) 7.8 Eos % (Auto) 2.8 Baso % (Auto) 0.1 Neut # (Auto) 7.25 H Lymph # (Auto) 0.65 L [place] # (Auto) 0.70 H Eos # (Auto) 0.25 Baso # (Auto) 0.01 Immature Gran # (Auto) 0.06 Sodium 136 Potassium 3.5 Chloride 102 Carbon Dioxide 29 Anion Gap 5 BUN 45 H Creatinine 1.09 Est Cr Clr Drug Dosing 40.4 Est GFR ( Amer) 57.1 Est GFR (Non-Af Amer) 49.3 BUN/Creatinine Ratio 41.3 H Glucose 113 H POC Glucose 137 H Calcium 9.2 Phosphorus 2.7 Magnesium 2.1 Total Bilirubin 0.5 AST 17 Alkaline Phosphatase 87 [address]ig[address] scan personally viewed and agree with the assessment of enterocutaneous fistula, near the inferior portion of incision with an small fascial dehiscence. 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 Automated dose lowering techniques and/or adjustment according to patient size were utilized for this exam. This exam was performed with intravenous contrast. CT DOSE: 1248.41 mGy.cm COMPARISON: Comparison is made to CT abdomen pelvis the FINDINGS: Lower chest: Small left and trace right atelectasis is seen. Partial visualization of a subcarinal lymphadenopathy and pulmonary nodules, unchanged Liver: Unremarkable. No focal lesions are seen. Gallbladder and biliary tree: Cystic fluid is seen without lesly wall thickening. No intra- or extrahepatic biliary ductal dilation. Pancreas: Unremarkable, no focal lesions. Spleen: Splenule is incidentally noted. Adrenals: Left renal adenoma is unchanged. Kidneys and ureters: Unremarkable. Bladder: Unremarkable. Reproductive organs: Unremarkable. Bowel: Unremarkable. Lymph nodes Retroperitoneal: Subcentimeter lymph nodes are noted. Pelvic: Unremarkable. Mesenteric: Unremarkable. Peritoneum: Redemonstration of pneumoperitoneum which may be slight decrease in conspicuity compared to the prior exam. Peritoneal stranding and encapsulated fluid is seen. The collections about the liver and spleen appear stable to minimally decreased in size. Previously noted peritoneal catheter has been removed. Vessels: Atherosclerotic calcifications are seen. Abdominal wall: Midline incision is seen with extravasation of enteric contrast as well as gas. Enterocutaneous fistula is noted with a tract at series 3 image 222. Incision dehiscence is seen, new from prior. Bones: Degenerative changes in the visualized spine. Grade 1 anterolisthesis seen at L4-L5. Right hip arthroplasty is seen. IMPRESSION: 1. 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 2. Peritoneal stranding, pneumoperitoneum, and scattered fluid collections are similar to prior exam. Lymphadenopathy is likely reactive. Interval removal of pigtail catheter. 3. Redemonstration of bilateral pleural effusions, lung nodules, and subcarinal lymphadenopathy. ACT 112: Negative or not required by law. Electronically signed by: Kenrick Taylor M.D. 07/08/2024 2:41 PM PG Care Time/CCT Total # of Minutes Spent Total Time Spent with Patient: Total time spent is greater than 50% in coordination of care (as documented) at patient's floor/unit and/or counseling patient: Coding Level of Care Code None Diagnoses Status post exploratory laparotomy Z98.890 Perforated gastric ulcer K25.5
--- NOTE | 2024-07-09 11:25 | Pharmacy Report ---
Pharmacy PN Follow-up Note - Date of Service July 09, 2024 - Subjective Patient is currently on day #2 of TPN (restarted on 07/08/24) for prolonged NPO s/p repair of perforated gastric ulcer now w/ enterocutaneous fistula. - Objective Height & Weight (Last Documented) Height 5 ft 1 in Weight 73.9 kg Diet Order(s) 07/08/24 14:53 NPO Intake & Ouput (24hrs) 07/08/24 07/09/24 07/10/24 06:59 06:59 06:59 Intake Total 1180 / 1180 490 / 490 Output Total Balance 1179 / 1179 490 / 490 Selected Laboratory Results 07/09/24 07:15 Sodium 136 Potassium 3.5 Chloride 102 Carbon Dioxide 29 Anion Gap 5 BUN 45 H Creatinine 1.09 Est GFR ( Amer) 57.1 Est GFR (Non-Af Amer) 49.3 BUN/Creatinine Ratio 41.3 H Glucose 113 H Calcium 9.2 Phosphorus 2.7 Magnesium 2.1 Total Bilirubin 0.5 AST 17 Alkaline Phosphatase 87 Triglycerides 106 - Assessment & Plan Assessment: 07/09/24: * TPN restarted yesterday due to CT findings of enterocutaneous fistula (patient made NPO once again) * Order for TPN came in after deadline, so 1 L clinimix bag w/ no additives given * Electrolytes all stable and WNL today * 15 mmol of IV Kphos given due to K of 3.6 and phosphorus of 2.7 and since no electrolytes in current bag 07/05/24: * TPN discontinued 07/04/24: * Patient remains on TPN, while diet advancing (currently tolerating full liquid diet, but not much of an appetite) * Plan is to continue TPN until tolerating regular diet * TPN remains at goal, providing 1296 kcal/day * Electrolytes largely stable, favoring acetate to chloride in light of hyperchloremia * Triglycerides rechecked today and stable at 160 mg/dL Background: * The patient is a 74 year old female admitted on 06/21/24 for perforated gastric ulcer * Patient is to receive parenteral nutrition for gastric ulcer with perforation s/p exploratory laparotomy with wash out, malnutrition and remains NPO. * Nephrology recommended initiation of parenteral nutrition to assist in volume overload/third spacing in the setting of malnutrition. * Hospitalist requested max volume ~1500 mL/day for day 1 - can re-evaluate daily * Pertinent PMHx: CKD (patient did require HD earlier this admission due to SONI) * PICC line placed on 06/27/24, will continue on w/ central TPN formulation Plan: * For Day #2 (restart) of TPN administration, the following will be ordered: * Macronutrients: * Amino Acids: 80 grams/day * Dextrose: 140 grams/day * Lipids: 50 grams/day * Micronutrients: * TPN electrolytes: 20 mL/day Contains 35 mEq Na, 20 mEq K, 4.5 mEq Ca, 5 mEq Mg, 35 mEq Cl, 29.5 mEq Acetate per 20 mL * Sodium phosphate: 30 mMol/day * Potassium chloride: 60 mEq/day * Multivitamins: 10 mL/day * Trace elements: 1 mL/day * Thiamine: 100 mg/day * Folic Acid: 1 mg/day * Total volume of 1072 mL will be infused over 24 hours and will provide 1296 kcal/day * Labs will be ordered per PN protocol. * Pharmacy will follow and adjust PN orders on a daily basis. Thank you!
--- NOTE | 2024-07-09 11:27 | XCELERA ---
[id number]
[2024-07-09] MEDS: CENTRAL TPN IV SCH (16:15)
[2024-07-09] MEDS: [UNRECOGNIZED DRUG - OTHER] IV SCH (16:15)
[2024-07-09] MEDS: CLINOLIPID 20% IV FAT EMULSION 250 ML IV SCH (16:16)
--- NOTE | 2024-07-09 16:18 | Hospitalist Progress Note ---
Date of Service July 09, 2024 Assessment & Plan (1) Perforated gastric ulcer: Plan: presented to the ER 06/21 with abdominal pain after undergoing a colonoscopy, during which an area of stricture with ulceration was noted. subsequently developed abdominal pain CTA/P showed pneumoperitoneum suspicious for bowel perforation. Chest x-ray suspected free air Presented in septic shock from peritonitis, taken for emergency ex lap Ex lap identified a perforated gastric ulcer and Uriel patch of perforated ulcer was performed. She underwent hemodialysis 06/22 for SONI & hyperkalemia likely as a result of ATN from her septic shock. remains on lasix as fluid ahead 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 dehissed abdominal wound TPN restarted 07/08/2024, discussed with general surgery at [facility] they feel that as long as her condition is stable is appropriate to treat this enteric fistula conservatively at this time Patient has Pseudomonas peritonitis remains on appropriately renal dosed meropenem duration yet to be determined by infectious disease still with drainage from her operative incisions Acute blood loss anemia s/p transfusion hemoglobin is trended downward, transfused a total of 2 units prbc (2) HTN (hypertension): Plan: Grade II diastolic dysfunction Echo July 08 with normal EF no significant valvular abnormalities and no valvular vegetations Nebivolol held (3) Colonic mass: Plan: Right-sided colonic stricture, colonic mass Following with GI as an outpatient, and recent colonoscopy as noted. Cause of pneumoperitoneum was identified as perforated gastric ulcer.Continue outpatient follow-up. Path report showed fragments of colonic mucosa with focal ulceration and reactive changes no diagnostic evidence of malignancy identified from sampled tissue Plan Synthroid converted to IV 2/2 NPO Hyperlipidemia Statin held Patient request pramipexole for restless leg syndrome this was ordered on 07/03/2024, now npo except meds Patient this patient could be an LTAC referral Admission and Anticipated Discharge Date Admission Date: June 21, 2024 Subjective 3 weeks status post laparotomy with repair of perforated gastric ulcer, recent history of drainage of abdominal fluid collections. CT scan yesterday confirmed presence of anterior cutaneous fistula, there is contrast progressing beyond this point. She was n.p.o. and restarted on TPN. She thinks the output has significantly decreased since that point. Patient has had good pain control she has been out of bed to chair Physical Exam Physical Exam: Patient looks slightly more pale than 1 day prior Her cardiac exam is regular no murmurs are heard that her yesterday and echocardiogram did not confirm the murmur there is no valvular vegetation also Lungs are diminished at bases Abdomen is a large dressing in place where she previously has had significant discharge from her dehisced abdominal wound Results & Data Results & Data Vital Signs (Past 12 Hours) Vital Signs Temp Pulse Pulse Resp BP Pulse Ox O2 Del Method 07/09/24 15:13 97.9 F 107 H 18 98/67 L 94 Room Air 07/09/24 13:48 96 H 07/09/24 11:24 98.1 F 86 18 131/77 95 Room Air 07/09/24 07:42 98.8 F 91 H 20 121/75 96 Nasal Cannula 07/09/24 07:21 99 H O2 Flow Rate 07/09/24 15:13 07/09/24 13:48 07/09/24 11:24 07/09/24 07:42 2 07/09/24 07:21 Laboratory Results Reviewed CBC reviewed chemistry PG Care Time/CCT Total # of Minutes Spent Total Time Spent with Patient: Total time spent is greater than 50% in coordination of care (as documented) at patient's floor/unit and/or counseling patient: Coding Level of Care Code 48427 SUB INP/OBS CARE 3/50MIN Diagnoses Perforated gastric ulcer K25.5 HTN (hypertension) I10 Colonic mass K63.89
--- NOTE | 2024-07-09 16:40 | Hospitalist Progress Note ---
Date of Service July 09, 2024 Assessment & Plan Admission and Anticipated Discharge Date Admission Date: June 21, 2024 Results & Data Results & Data Vital Signs (Past 12 Hours) Vital Signs Temp Pulse Pulse Resp BP Pulse Ox O2 Del Method 07/09/24 15:13 97.9 F 107 H 18 98/67 L 94 Room Air 07/09/24 13:48 96 H 07/09/24 11:24 98.1 F 86 18 131/77 95 Room Air 07/09/24 07:45 Room Air 07/09/24 07:42 98.8 F 91 H 20 121/75 96 Nasal Cannula 07/09/24 07:21 99 H O2 Flow Rate 07/09/24 15:13 07/09/24 13:48 07/09/24 11:24 07/09/24 07:45 07/09/24 07:42 2 07/09/24 07:21 PG Care Time/CCT Total # of Minutes Spent Total Time Spent with Patient: Total time spent is greater than 50% in coordination of care (as documented) at patient's floor/unit and/or counseling patient: Coding
[2024-07-09] MEDS: STOP CLINOLIPID SCH (21:38)
[2024-07-10 07:58] LABS: Basophils # (auto) 0.02 K/uL (0.00-0.20); Basophils % (auto) 0.3 %; Eosinophils # (auto) 0.25 K/uL (0.00-0.50); Eosinophils % (auto) 3.6 %; Hematocrit (blood only) 26.3 % (37.0-47.0); Hemoglobin 8.2 g/dl (12.0-16.0); Immature Granulocytes # (auto) 0.04 K/uL (0.01-0.20); Immature Granulocytes % (auto) 0.6 %; Lymphocytes # (auto) 0.67 K/uL (1.20-3.40); Lymphocytes % (auto) 9.7 %; Mean Corpuscular Hemoglobin 27.9 pg (25.0-34.0); Mean Corpuscular Hgb Conc 31.2 g/dL (32.0-36.0); Mean Corpuscular Volume 89.5 fL (80.0-100.0); Mean Platelet Volume 10.2 fL (9.4-12.4); Monocytes # (auto) 0.58 K/uL (0.11-0.59); Monocytes % (auto) 8.4 %; Neutrophils # (auto) 5.37 K/uL (1.40-6.50); Neutrophils % (auto) 77.4 %; Platelet Count 443 K/uL (130-400); RDW Coefficient of Variation 14.6 % (11.5-14.5); RDW Standard Deviation 47.5 fL (36.4-46.3); Red Blood Count 2.94 M/uL (4.20-5.40); White Blood Count 6.93 K/ul (4.8-10.8)
[2024-07-10 08:17] LABS: BUN Creatinine Ratio 41.9 (10-20); Calcium 9.4 mg/dl (8.6-10.3); Creatinine Clr Calc Pharmacy 41.6 ml/min; Est GFR (African American) 59.7 ml/min; Est GFR (Non-African American) 51.5 ml/min; Magnesium 2.2 mg/dl (1.7-2.4); Phosphorus 3.4 mg/dl (2.5-4.9); Potassium 3.7 mmol/L (3.5-5.1)
--- NOTE | 2024-07-10 10:53 | Surgery Progress Note ---
Date of Service July 10, 2024 Assessment & Plan (1) Status post exploratory laparotomy: Plan: Status post repair of perforated gastric ulcer. Now with enterocutaneous fistula N.p.o., TPN Goal is to convert high-output fistula into a low output fistula Wound care nurse at bedside during our visit, we will place wound VAC Continue antibiotic PT/OT, out of bed to chair, ambulate, I-S Patient will likely need home health care or placement, case management involvement (2) Perforated gastric ulcer: Admission and Anticipated Discharge Date Admission Date: June 21, 2024 Subjective 3 weeks status post laparotomy with repair of perforated gastric ulcer, now with enterocutaneous fistula at the inferior part of her incision. She thinks the odor of the discharge is changed. She is n.p.o. and on TPN. Physical Exam Constitutional: WD/WN, vitals as above Respiratory: normal respiratory effort, lungs clear to auscultation Cardiovascular: RRR, no murmur, no edema Gastrointestinal (Abdomen): Inspection/Auscultation: + abdominal surgical incision (Several more roberto removed, visible fistula, skin irritation) Pe rcussion/Palpation: + abdomen tender (Appropriately tender to palpation) and abdomen soft; no guarding and abdomen not rigid Results & Data Vital Signs (Past 12 Hours) Vital Signs Temp Pulse Pulse Resp BP Pulse Ox O2 Del Method 07/10/24 07:31 Room Air 07/10/24 07:16 79 07/10/24 07:14 37.0 C 93 H 18 137/76 92 Room Air 07/10/24 02:45 36.8 C 93 H 18 117/73 92 Room Air 07/09/24 22:58 87 Laboratory Results Laboratory Results - last 24 hr 07/09/24 07/09/24 07/09/24 12:07 16:16 18:16 WBC RBC Hgb 8.8 L Hct MCV MCH MCHC RDW Std Deviation RDW Coeff of Rafael Plt Count MPV Immature Gran % (Auto) Neut % (Auto) Lymph % (Auto) [place] % (Auto) Eos % (Auto) Baso % (Auto) Neut # (Auto) Lymph # (Auto) [place] # (Auto) Eos # (Auto) Baso # (Auto) Immature Gran # (Auto) Sodium Potassium Chloride Carbon Dioxide Anion Gap BUN Creatinine Est Cr Clr Drug Dosing Est GFR ( Amer) Est GFR (Non-Af Amer) BUN/Creatinine Ratio Glucose POC Glucose 125 H 130 H Calcium Phosphorus Magnesium 07/10/24 07/10/24 07:16 07:28 WBC 6.93 RBC 2.94 L Hgb 8.2 L Hct 26.3 L MCV 89.5 MCH 27.9 MCHC 31.2 L RDW Std Deviation 47.5 H RDW Coeff of Rafael 14.6 H Plt Count 443 H MPV 10.2 Immature Gran % (Auto) 0.6 Neut % (Auto) 77.4 Lymph % (Auto) 9.7 [place] % (Auto) 8.4 Eos % (Auto) 3.6 Baso % (Auto) 0.3 Neut # (Auto) 5.37 Lymph # (Auto) 0.[address] [place] # (Auto) 0.58 Eos # (Auto) 0.25 Baso # (Auto) 0.02 Immature Gran # (Auto) 0.04 Sodium 138 Potassium 3.7 Chloride 105 Carbon Dioxide 26 Anion Gap 7 BUN 44 H Creatinine 1.05 Est Cr Clr Drug Dosing 41.6 Est GFR ( Amer) 59.7 Est GFR (Non-Af Amer) 51.5 BUN/Creatinine Ratio 41.9 H Glucose 104 H POC Glucose 115 H Calcium 9.4 Phosphorus 3.4 Magnesium 2.2 PG Care Time/CCT Total # of Minutes Spent Total Time Spent with Patient: Total time spent is greater than 50% in coordination of care (as documented) at patient's floor/unit and/or counseling patient: Coding Level of Care Code None Diagnoses Status post exploratory laparotomy Z98.890 Perforated gastric ulcer K25.5
[2024-07-10] MEDS: CLINOLIPID 20% IV FAT EMULSION 250 ML IV SCH (15:11)
[2024-07-10] MEDS: CENTRAL TPN IV SCH (15:11)
[2024-07-10] MEDS: [UNRECOGNIZED DRUG - OTHER] IV SCH (15:11)
--- NOTE | 2024-07-10 15:36 | Hospitalist Progress Note ---
Date of Service July 10, 2024 Assessment & Plan (1) Perforated gastric ulcer: Plan: presented to the ER 06/21 with abdominal pain after undergoing a colonoscopy, during which an area of stricture with ulceration was noted. subsequently developed abdominal pain CTA/P showed pneumoperitoneum suspicious for bowel perforation. Chest x-ray suspected free air Presented in septic shock from peritonitis, taken for emergency ex lap Ex lap identified a perforated gastric ulcer and Uriel patch of perforated ulcer was performed. 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 dehissed abdominal wound TPN restarted 07/08/2024, discussed with general surgery at [facility] enter they feel that as long as her condition is stable is appropriate to treat this enteric fistula conservatively at this time, wound care to place wound vacc with special sponge to help reduce effuence from fistulae while helping wound heal Patient has Pseudomonas peritonitis remains on appropriately renal dosed meropenem duration yet to be determined by infectious disease still with drainage from her operative incisions, lance tatum base duration on CT scan to be performed in two weeks Acute blood loss anemia s/p transfusion hemoglobin is trended downward, transfused a total of 2 units prbc (2) HTN (hypertension): Plan: Grade II diastolic dysfunction Echo July 08 with normal EF no significant valvular abnormalities and no valvular vegetations Nebivolol held (3) Colonic mass: Plan: Right-sided colonic stricture, colonic mass Following with GI as an outpatient, and recent colonoscopy as noted. Cause of pneumoperitoneum was identified as perforated gastric ulcer.Continue outpatient follow-up. Path report showed fragments of colonic mucosa with focal ulceration and reactive changes no diagnostic evidence of malignancy identified from sampled tissue (4) SONI (acute kidney injury): Plan: She underwent hemodialysis 06/22 for SONI & hyperkalemia likely as a result of ATN from her septic shock. 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 Wound care did see and will place wound vacc 07/10/24 acute rehab still interested in pt once she is stable She is n.p.o. and on TPN. Physical Exam Physical Exam: Patient looks stable but pale and weakened Her cardiac exam is regular no murmurs are heard that her yesterday and echocardiogram did not confirm the murmur there is no valvular vegetation also Lungs are diminished at bases Abdomen is a large dressing in place where she previously has had significant discharge from her dehisced abdominal wound Results & Data Results & Data Vital Signs (Past 12 Hours) Vital Signs Temp Pulse Pulse Resp BP Pulse Ox O2 Del Method 07/10/24 15:04 97.7 F 101 H 18 117/79 94 Room Air 07/10/24 14:00 67 07/10/24 11:03 97.9 F 97 H 18 119/72 92 Room Air 07/10/24 07:31 Room Air 07/10/24 07:16 79 07/10/24 07:14 98.6 F 93 H 18 137/76 92 Room Air Laboratory Results review cbc review chemistry PG Care Time/CCT Total # of Minutes Spent Total Time Spent with Patient: Total time spent is greater than 50% in coordination of care (as documented) at patient's floor/unit and/or counseling patient: Coding Level of Care Code 40184 SUB INP/OBS CARE 3/50MIN Diagnoses Perforated gastric ulcer K25.5 HTN (hypertension) I10 Colonic mass K63.89 SONI (acute kidney injury) N17.9
[2024-07-11 07:41] LABS: BUN Creatinine Ratio 40.7 (10-20); Calcium 9.7 mg/dl (8.6-10.3); Creatinine Clr Calc Pharmacy 38.7 ml/min; Est GFR (African American) 54.7 ml/min; Est GFR (Non-African American) 47.2 ml/min; Magnesium 2.1 mg/dl (1.7-2.4); Phosphorus 3.4 mg/dl (2.5-4.9); Potassium 3.7 mmol/L (3.5-5.1)
--- NOTE | 2024-07-11 11:54 | Surgery Progress Note ---
Date of Service July 11, 2024 Assessment & Plan (1) Status post exploratory laparotomy: Plan: Status post repair of perforated gastric ulcer. Now with enterocutaneous fistula Vac initiated yesterday. Broke seal this AM and required replacement which is currently holding up well Continue NPO with TPN until fistula is low output On abx with recommendations provided by ID Continue to encourage OOB, Pulm toilet Likely will require placement upon dispo Admission and Anticipated Discharge Date Admission Date: June 21, 2024 Supervising Physician Co-Signing Physician Notes Patient seen examined, labs reviewed, agree with above. 3 weeks status post laparotomy with repair of perforated gastric ulcer, now with enterocutaneous fistula. Wound VAC placed yesterday, however leaked overnight, replaced this morning. Overall doing well, ambulating, has not had a bowel movement in a few days but is still passing gas. On exam she is afebrile with stable vitals, her wound VAC is in place. There is skin irritation inferiorly from fistula drainage. Continue wound VAC to abdomen, attempted to convert fistula to a low output fistula and eventual closure. Continue TPN and antibiotics. Will need placement. Subjective Patient says she feels pretty good all things considered. Pain controlled. No nausea. + flatus. No recent BM in few days. Ambulating the halls today. Reports vac did leak early this AM and needed replaced. Physical Exam Physical Exam: awake, alert, sitting up in chair, vac in place holding seal with + abdominal binder Gastrointestinal (Abdomen): vac to midline, holding seal. skin irritation noted to inferior portion Results & Data Vital Signs (Past 12 Hours) Vital Signs Temp Pulse Pulse Resp BP Pulse Ox O2 Del Method 07/11/24 11:27 97.9 F 108 H 18 116/77 96 Room Air 07/11/24 08:00 70 07/11/24 08:00 Room Air 07/11/24 07:17 97.7 F 93 H 18 126/75 95 Room Air 07/11/24 05:36 98.8 F 77 18 114/72 94 Room Air PG Care Time/CCT Total # of Minutes Spent Total Time Spent with Patient: Total time spent is greater than 50% in coordination of care (as documented) at patient's floor/unit and/or counseling patient: Coding Level of Care Code 57262 Post Operative Follow-Up Diagnoses Status post exploratory laparotomy Z98.890
[2024-07-11] MEDS: MEROPENEM 2,000 MG in 0.9 % SODIUM CHLORIDE 60 ML IV SCH (12:01)
--- NOTE | 2024-07-11 13:47 | Hospitalist Progress Note ---
Date of Service July 11, 2024 Assessment & Plan (1) Perforated gastric ulcer: (2) Status post exploratory laparotomy: (3) Acute kidney injury superimposed on CKD: (4) Chronic kidney disease (CKD) stage G3a/A3, moderately decreased glomerular filtration rate (GFR) between 45-59 mL/min/1.73 square meter and albuminuria creatinine ratio greater than 300 mg/g: (5) Acute on chronic diastolic (congestive) heart failure: (6) Colonic mass: (7) Hypothyroidism: Plan 74-year-old female with past medical history of CKD stage III, hypothyroidism, chronic diastolic congestive heart failure who presented to the ED on 06/21/2024 for with complains of abdominal pain after undergoing colonoscopy the day before. Patient had a CT of the abdomen pelvis which showed scattered pneumoperitoneum and raise a concern for bowel perforation. Patient was also found to be in shock secondary to sepsis from perforation and required ICU stay and phenylephrine drip. Patient had a perforated gastric ulcer likely secondary to chronic NSAID use and she underwent gastric washout and repair of the perforated gastric ulcer by surgery on 06/21/2024. She was also found to be in SONI due to septic shock and required single treatment of dialysis for SONI with hyperkalemia. Renal function has improved and is close to her baseline. Nephrology has signed off at this point. #Septic shock due to perforated gastric ulcer with Pseudomonas aeruginosa peritonitis, present on admission #Perforated gastric ulcer status post repair on 06/21/2024, likely secondary to chronic NSAID use Surgery is following the patient She continues to be n.p.o. 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 Surgery is recommended continuing TPN and antibiotics ID saw the patient and have recommended meropenem 2 g IV every 8 hours for Pseudomonas peritonitis until July 26, 2024 with plan to repeat CT abdomen pelvis with IV and p.o. contrast in 2 weeks time on around 07/19/2024 and if collections have improved then could consider DC meropenem sooner. ID has recommended weekly CBC with differential, CMP while patient is on IV antibiotics #SONI superimposed on chronic kidney disease stage III Patient was seen by nephrology during hospital stay She required single treatment of dialysis on admission Renal function has improved and is close to her baseline Avoid nephrotoxic agents Monitor renal function electrolytes #Acute on chronic diastolic congestive heart failure with preserved ejection fraction #Essential hypertension EF is 65% Stop IV Lasix for now as patient is currently not in heart failure I/O monitoring Daily weights Resume oral Lasix as needed based on weights Resume beta-marie Monitor vital signs #Hypothyroidism Continue levothyroxine 75 mcg p.o. daily #Acute blood loss anemia Likely secondary to perforated ulcer Status post PRBC H&H stable Monitor H&H intermittently CODE STATUS: Full code DVT prophylaxis: Bilateral SCDs Discharge planning to acute rehab when cleared by surgery Care plan discussed with patient, nursing staff, ID team and pharmacy team Admission and Anticipated Discharge Date Admission Date: June 21, 2024 Subjective Patient seen and examined. She is ambulating. She is currently n.p.o. and on TPN but able to take pills by mouth. Patient denies any bowel movement but does report passing gas. She denies any fever, chills, nausea, vomiting. She denies any chest pain or shortness of breath. Wound VAC was leaking last night and was removed. Has been replaced by wound care at this morning and so far is functioning well. As per ID note, patient is meant to be on IV meropenem until 07/26/2024 but currently does not appear to be on IV antibiotics: Discussed with pharmacy and patient has not been on IV meropenem since 07/07/2024 Review of Systems Review of Systems: As per HPI Physical Exam Physical Exam: General: No acute distress, speaking in full sentences Psych: Awake and alert HEENT: Anicteric sclera, moist oral mucosa CVS: Regular rate and rhythm Lungs: Bilateral air entry, no wheezing noted Abdomen: Soft, wound VAC in place with abdominal binder, no rebound, no guarding Ext: No lower extremity edema, no calf tenderness Neuro: No focal motor deficits noted Results & Data Results & Data Vital Signs (Past 12 Hours) Vital Signs Temp Pulse Pulse Resp BP Pulse Ox O2 Del Method 07/11/24 11:27 36.6 C 108 H 18 116/77 96 Room Air 07/11/24 08:00 70 07/11/24 08:00 Room Air 07/11/24 07:17 36.5 C 93 H 18 126/75 95 Room Air 07/11/24 05:36 37.1 C 77 18 114/72 94 Room Air Laboratory Results Laboratory Results - last 24 hr 09/16/24 09/17/24 09/17/24 20:55 03:13 06:39 Sodium 137 Potassium 3.7 Chloride 106 Carbon Dioxide 23 Anion Gap 8 BUN 46 H Creatinine 1.13 Est Cr Clr Drug Dosing 38.7 Est GFR ( Amer) 54.7 Est GFR (Non-Af Amer) 47.2 BUN/Creatinine Ratio 40.7 H Glucose 109 H POC Glucose 141 H 129 H Calcium 9.7 Phosphorus 3.4 Magnesium 2.1 ALT 25 07/11/24 07/11/24 07/11/24 09:54 11:52 18:20 Sodium Potassium Chloride Carbon Dioxide Anion Gap BUN Creatinine Est Cr Clr Drug Dosing Est GFR ( Amer) Est GFR (Non-Af Amer) BUN/Creatinine Ratio Glucose POC Glucose 115 H 123 H 121 H Calcium Phosphorus Magnesium ALT PG Care Time/CCT Total # of Minutes Spent Total Time Spent: 50 Total Time Spent with Patient: Total time spent is greater than 50% in coordination of care (as documented) at patient's floor/unit and/or counseling patient: Coding Level of Care Code 25491 SUB INP/OBS CARE 3/50MIN Diagnoses Perforated gastric ulcer K25.5 Status post exploratory laparotomy Z98.890 Acute kidney injury superimposed on CKD N17.9; N18.9 Chronic kidney disease (CKD) stage G3a/A3, moderately decreased glomerular filtration rate (GFR) between 45-59 mL/min/1.73 square meter and albuminuria creatinine ratio greater than 300 mg/g N18.31 Acute on chronic diastolic (congestive) heart failure I50.33 Colonic mass K63.89 Hypothyroidism E03.9 Time Spent (min) 50
[2024-07-11] MEDS: [UNRECOGNIZED DRUG - OTHER] IV SCH (15:07)
[2024-07-11] MEDS: CENTRAL TPN IV SCH (15:07)
--- NOTE | 2024-07-11 15:09 | Pharmacy Report ---
Pharmacy PN Follow-up Note - Date of Service July 11, 2024 - Subjective Patient is currently on day #4 of TPN for gastric ulcer perf. - Objective Height & Weight (Last Documented) Height 5 ft 1 in Weight 72.9 kg Diet Order(s) 07/08/24 14:53 NPO Intake & Ouput (24hrs) 07/10/24 07/11/24 07/12/24 06:59 06:59 06:59 Intake Total 1505 / 1505 1479.517 / 1479.517 100 / 100 Output Total Balance 1505 / 1505 1479.517 / 1479.517 99 / 99 Selected Laboratory Results 07/11/24 06:39 Sodium 137 Potassium 3.7 Chloride 106 Carbon Dioxide 23 Anion Gap 8 BUN 46 H Creatinine 1.13 Est GFR ( Amer) 54.7 Est GFR (Non-Af Amer) 47.2 BUN/Creatinine Ratio 40.7 H Glucose 109 H Calcium 9.7 Phosphorus 3.4 Magnesium 2.1 ALT 25 - Assessment & Plan Assessment: 07/11/24 * Patient is still NPO. No plan noted to discontinue TPN at this time * TPN has been advanced back to goal. * Electrolytes are stable so will continue TPN as ordered. 07/09/24: * TPN restarted yesterday due to CT findings of enterocutaneous fistula (patient made NPO once again) * Order for TPN came in after deadline, so 1 L clinimix bag w/ no additives given * Electrolytes all stable and WNL today * 15 mmol of IV Kphos given due to K of 3.6 and phosphorus of 2.7 and since no electrolytes in current bag 07/05/24: * TPN discontinued 07/04/24: * Patient remains on TPN, while diet advancing (currently tolerating full liquid diet, but not much of an appetite) * Plan is to continue TPN until tolerating regular diet * TPN remains at goal, providing 1296 kcal/day * Electrolytes largely stable, favoring acetate to chloride in light of hyperchloremia * Triglycerides rechecked today and stable at 160 mg/dL Background: * The patient is a 74 year old female admitted on 06/21/24 for perforated gastric ulcer * Patient is to receive parenteral nutrition for gastric ulcer with perforation s/p exploratory laparotomy with wash out, malnutrition and remains NPO. * Nephrology recommended initiation of parenteral nutrition to assist in volume overload/third spacing in the setting of malnutrition. * Hospitalist requested max volume ~1500 mL/day for day 1 - can re-evaluate daily * Pertinent PMHx: CKD (patient did require HD earlier this admission due to SONI) * PICC line placed on 06/27/24, will continue on w/ central TPN formulation Plan: * For Day #4 (restart) of TPN administration, the following will be ordered: * Macronutrients: * Amino Acids: 80 grams/day * Dextrose: 140 grams/day * Lipids: 50 grams/day * Micronutrients: * TPN electrolytes: 20 mL/day Contains 35 mEq Na, 20 mEq K, 4.5 mEq Ca, 5 mEq Mg, 35 mEq Cl, 29.5 mEq Acetate per 20 mL * Sodium phosphate: 30 mMol/day * Potassium chloride: 60 mEq/day * Multivitamins: 10 mL/day * Trace elements: 1 mL/day * Thiamine: 100 mg/day * Folic Acid: 1 mg/day * Total volume of 1072 mL will be infused over 24 hours and will provide 1296 kcal/day * Labs will be ordered per PN protocol. * Pharmacy will follow and adjust PN orders on a daily basis. Thank you!
[2024-07-11] MEDS: CLINOLIPID 20% IV FAT EMULSION 250 ML IV SCH (15:18)
[2024-07-11] MEDS: METOPROLOL TARTRATE 50 MG TAB PO SCH (20:41)
[2024-07-12 07:52] LABS: Basophils # (auto) 0.02 K/uL (0.00-0.20); Basophils % (auto) 0.2 %; Eosinophils # (auto) 0.27 K/uL (0.00-0.50); Eosinophils % (auto) 3.3 %; Hematocrit (blood only) 26.1 % (37.0-47.0); Hemoglobin 8.3 g/dl (12.0-16.0); Immature Granulocytes # (auto) 0.05 K/uL (0.01-0.20); Immature Granulocytes % (auto) 0.6 %; Lymphocytes # (auto) 0.61 K/uL (1.20-3.40); Lymphocytes % (auto) 7.4 %; Mean Corpuscular Hemoglobin 27.7 pg (25.0-34.0); Mean Corpuscular Hgb Conc 31.8 g/dL (32.0-36.0); Mean Platelet Volume 10.3 fL (9.4-12.4); Monocytes # (auto) 0.58 K/uL (0.11-0.59); Neutrophils % (auto) 81.5 %; Platelet Count 443 K/uL (130-400); RDW Coefficient of Variation 14.5 % (11.5-14.5); RDW Standard Deviation 45.7 fL (36.4-46.3); White Blood Count 8.23 K/ul (4.8-10.8)
[2024-07-12 07:54] LABS: Albumin Globulin Ratio 0.7 (0.9-2); Albumin Level 2.7 gm/dl (3.4-5.0); BUN Creatinine Ratio 41.1 (10-20); Bilirubin,Total 0.6 mg/dl (0.2-1.0); Calcium 9.9 mg/dl (8.6-10.3); Creatinine Clr Calc Pharmacy 40.2 ml/min; Est GFR (African American) 55.3 ml/min; Est GFR (Non-African American) 47.7 ml/min; Magnesium 2.2 mg/dl (1.7-2.4); Phosphorus 3.4 mg/dl (2.5-4.9); Potassium 4.2 mmol/L (3.5-5.1); Total Protein 6.7 gm/dl (6.0-8.3)
--- NOTE | 2024-07-12 08:27 | Surgery Progress Note ---
Date of Service July 12, 2024 Assessment & Plan (1) Status post exploratory laparotomy: Plan: s/p exlap for perforated gastric ulcer, post op course complicated by EC fistula Wound vac replaced yesterday, currently holding good seal. + output in canister Continue NPO with TPN to allow time for EC fistula to become low output IV meropenem per ID PT recommending rehab May remove abdominal binder for small breaks (2) Perforated gastric ulcer: Admission and Anticipated Discharge Date Admission Date: June 21, 2024 Supervising Physician Co-Signing Physician Notes Patient seen examined, labs reviewed, agree with above. 3 weeks status post laparotomy with repair of perforated gastric ulcer, now with enterocutaneous fistula. Wound VAC replaced yesterday. Overall doing well, ambulating, has not had a bowel movement in a few days but is still passing gas. On exam she is afebrile with stable vitals, her wound VAC is in place. There is skin irritation inferiorly from fistula drainage. Continue wound VAC to abdomen, attempted to convert fistula to a low output fistula and eventual closure. Co ntinue TPN and antibiotics. Will need placement. Subjective Patient feeling okay. Reports an episode of pain overnight in abdomen that after receiving pain medications she was able to get some sleep and feels better. Some discomfort with abdominal binder. No vac leakage overnight. Physical Exam Physical Exam: resting, but easily arousable, no distress Respiratory: normal respiratory effort Gastrointestinal (Abdomen): Inspection/Auscultation: + abdominal surgical incision (midline wound with vac in place holding good seal); abdomen not distended Results & Data Vital Signs (Past 12 Hours) Vital Signs Temp Pulse Pulse Resp BP Pulse Ox O2 Del Method 07/12/24 03:23 98.6 F 92 H 18 120/79 94 Room Air 07/11/24 23:53 82 07/11/24 22:43 98.4 F 81 18 127/73 94 Room Air PG Care Time/CCT Total # of Minutes Spent Total Time Spent with Patient: Total time spent is greater than 50% in coordination of care (as documented) at patient's floor/unit and/or counseling patient: Coding Level of Care Code 13952 Post Operative Follow-Up Diagnoses Status post exploratory laparotomy Z98.890 Perforated gastric ulcer K25.5
[2024-07-12] MEDS ORDERED: NEBIVOLOL 10 MG PO SCH (09:00)
[2024-07-12] MEDS ORDERED: FUROSEMIDE 40 MG/4 ML VIAL IV SCH (09:00)
[2024-07-12] MEDS: PANTOprazole 40 MG in SYRINGE 0 ML IV SCH (09:42)
--- NOTE | 2024-07-12 13:21 | Hospitalist Progress Note ---
Date of Service July 12, 2024 Assessment & Plan (1) Perforated gastric ulcer: (2) Status post exploratory laparotomy: (3) Acute kidney injury superimposed on CKD: (4) Chronic kidney disease (CKD) stage G3a/A3, moderately decreased glomerular filtration rate (GFR) between 45-59 mL/min/1.73 square meter and albuminuria creatinine ratio greater than 300 mg/g: (5) Acute on chronic diastolic (congestive) heart failure: (6) Colonic mass: (7) Hypothyroidism: Plan 74-year-old female with past medical history of CKD stage III, hypothyroidism, chronic diastolic congestive heart failure who presented to the ED on 06/21/2024 for with complains of abdominal pain after undergoing colonoscopy the day before. Patient had a CT of the abdomen pelvis which showed scattered pneumoperitoneum and raise a concern for bowel perforation. Patient was also found to be in shock secondary to sepsis from perforation and required ICU stay and phenylephrine drip. Patient had a perforated gastric ulcer likely secondary to chronic NSAID use and she underwent gastric washout and repair of the perforated gastric ulcer by surgery on 06/21/2024. She was also found to be in SONI due to septic shock and required single treatment of dialysis for SONI with hyperkalemia. Renal function has improved and is close to her baseline. Nephrology has signed off at this point. #Septic shock due to perforated gastric ulcer with Pseudomonas aeruginosa peritonitis, present on admission #Perforated gastric ulcer status post repair on 06/21/2024, likely secondary to chronic NSAID use Surgery is following the patient She continues to be n.p.o. 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 Surgery is recommended continuing TPN and antibiotics ID saw the patient and have recommended meropenem 2 g IV every 8 hours for Pseudomonas peritonitis until July 26, 2024 with plan to repeat CT abdomen pelvis with IV and p.o. contrast in 2 weeks time on around 07/19/2024 and if collections have improved then could consider DC meropenem sooner. ID has recommended weekly CBC with differential, CMP while patient is on IV antibiotics As per discussion with surgery team today: Patient will be okay to discharge once wound VAC has been functioning for at least 24 hours without any issues #SONI superimposed on chronic kidney disease stage III Patient was seen by nephrology during hospital stay She required single treatment of dialysis on admission Renal function has improved and is close to her baseline Avoid nephrotoxic agents Monitor renal function electrolytes #Acute on chronic diastolic congestive heart failure with preserved ejection fraction #Essential hypertension EF is 65% IV Lasix has been stopped and will switch to oral Bumex 1 mg daily Continue beta-marie I/O monitoring Daily weights Monitor vital signs #Hypothyroidism Continue levothyroxine 75 mcg p.o. daily #Acute blood loss anemia Likely secondary to perforated ulcer Status post PRBC H&H stable Monitor H&H intermittently CODE STATUS: Full code DVT prophylaxis: Bilateral SCDs Discharge planning to acute rehab vs LTAC when cleared by surgery Care plan discussed with patient, nursing staff, and surgery team Admission and Anticipated Discharge Date Admission Date: June 21, 2024 Subjective Patient seen and examined Wound VAC started leaking again later in the morning and has been revamped by wound VAC team and is currently functioning She denies any chest pain or shortness of breath She denies any nausea, vomiting or abdominal pain Review of Systems Review of Systems: As per HPI Physical Exam Physical Exam: General: No acute distress, speaking in full sentences Psych: Awake and alert HEENT: Anicteric sclera, moist oral mucosa CVS: Regular rate and rhythm Lungs: Bilateral air entry, no wheezing noted Abdomen: Soft, wound VAC in place with abdominal binder, no rebound, no guarding Ext: No lower extremity edema, no calf tenderness Neuro: No focal motor deficits noted Results & Data Results & Data Vital Signs (Past 12 Hours) Vital Signs Temp Pulse Pulse Resp BP Pulse Ox O2 Del Method 07/12/24 12:26 81 07/12/24 03:23 37.0 C 92 H 18 120/79 94 Room Air Laboratory Results Laboratory Results - last 24 hr 07/11/24 07/12/24 07/12/24 18:20 00:33 06:28 WBC RBC Hgb Hct MCV MCH MCHC RDW Std Deviation RDW Coeff of Rafael Plt Count MPV Immature Gran % (Auto) Neut % (Auto) Lymph % (Auto) [place] % (Auto) Eos % (Auto) Baso % (Auto) Neut # (Auto) Lymph # (Auto) [place] # (Auto) Eos # (Auto) Baso # (Auto) Immature Gran # (Auto) Sodium Potassium Chloride Carbon Dioxide Anion Gap BUN Creatinine Est Cr Clr Drug Dosing Est GFR ( Amer) Est GFR (Non-Af Amer) BUN/Creatinine Ratio Glucose POC Glucose 121 H 125 H 119 H Calcium Phosphorus Magnesium Total Bilirubin AST ALT Alkaline Phosphatase Total Protein Albumin Globulin Albumin/Globulin Ratio 07/12/24 07/12/24 06:54 11:11 WBC 8.23 RBC 3.00 L Hgb 8.3 L Hct 26.1 L MCV 87.0 MCH 27.7 MCHC 31.8 L RDW Std Deviation 45.7 RDW Coeff of Rafael 14.5 Plt Count 443 H MPV 10.3 Immature Gran % (Auto) 0.6 Neut % (Auto) 81.5 Lymph % (Auto) 7.4 [place] % (Auto) 7.0 Eos % (Auto) 3.3 Baso % (Auto) 0.2 Neut # (Auto) 6.70 H Lymph # (Auto) 0.61 L [place] # (Auto) 0.58 Eos # (Auto) 0.27 Baso # (Auto) 0.02 Immature Gran # (Auto) 0.05 Sodium 139 Potassium 4.2 Chloride 109 H Carbon Dioxide 23 Anion Gap 7 BUN 46 H Creatinine 1.12 Est Cr Clr Drug Dosing 40.2 Est GFR ( Amer) 55.3 Est GFR (Non-Af Amer) 47.7 BUN/Creatinine Ratio 41.1 H Glucose 108 H POC Glucose 112 H Calcium 9.9 Phosphorus 3.4 Magnesium 2.2 Total Bilirubin 0.6 AST 25 ALT 29 Alkaline Phosphatase 121 H Total Protein 6.7 Albumin 2.7 L Globulin 4.0 Albumin/Globulin Ratio 0.7 L PG Care Time/CCT Total # of Minutes Spent Total Time Spent with Patient: Total time spent is greater than 50% in coordination of care (as documented) at patient's floor/unit and/or counseling patient: Coding Level of Care Code 73644 SUB INP/OBS CARE 2/35MIN Diagnoses Perforated gastric ulcer K25.5 Status post exploratory laparotomy Z98.890 Acute kidney injury superimposed on CKD N17.9; N18.9 Chronic kidney disease (CKD) stage G3a/A3, moderately decreased glomerular filtration rate (GFR) between 45-59 mL/min/1.73 square meter and albuminuria creatinine ratio greater than 300 mg/g N18.31 Acute on chronic diastolic (congestive) heart failure I50.33 Colonic mass K63.89 Hypothyroidism E03.9
[2024-07-12] MEDS: CENTRAL TPN IV SCH (15:53)
[2024-07-12] MEDS: [UNRECOGNIZED DRUG - OTHER] IV SCH (15:53)
[2024-07-12] MEDS: CLINOLIPID 20% IV FAT EMULSION 250 ML IV SCH (15:54)
--- NOTE | 2024-07-13 07:34 | Surgery Progress Note ---
Date of Service July 13, 2024 Assessment & Plan (1) Status post exploratory laparotomy: Plan: s/p exlap for perforated gastric ulcer, post op course complicated by EC fistula Wound vac in place, some issues with leakage yesterday requiring reinforcement. will ask wound care to re-evaluate today Continue NPO with TPN to allow time for EC fistula to become low output IV meropenem per ID PT recommending rehab Will see if wound care has any other recommendations/tricks for wound vac to help keep up with the output and maintain a seal (2) Perforated gastric ulcer: Admission and Anticipated Discharge Date Admission Date: June 21, 2024 Supervising Physician Co-Signing Physician Notes Patient seen examined, labs reviewed, agree with above. 3 weeks status post laparotomy with repair of perforated gastric ulcer, now with enterocutaneous fistula. Overall doing well, ambulating, passing gas and did have a bowel movement overnight. The wound VAC is leaking again at the inferior portion, wound care reinforced this today and will change it out tomorrow. On exam she is afebrile with stable vitals, her wound VAC is in place. There is skin irritation inferiorly from fistula drainage. Continue wound VAC to abdomen, attempted to convert fistula to a low output fistula and eventual closure. Continue TPN and antibiotics. Will need placement. Subjective Patient feeling okay. Reports her wound vac leaked a couple times yesterday and was salvaged, but states every time she gets up it has an issues. No nausea. Reports a + BM from below. No other new complaints. Physical Exam Physical Exam: awake/alert, no distress Gastrointestinal (Abdomen): Percussion/Palpation: abdomen soft wound vac currently holding seal, however there is some pooling of drainage at the inferior portion in the area where her skin is irritated Results & Data Vital Signs (Past 12 Hours) Vital Signs Temp Pulse Pulse Resp BP Pulse Ox O2 Del Method 07/13/24 07:21 98.4 F 92 H 20 132/73 94 Room Air 07/13/24 03:00 97.9 F 89 17 138/79 94 Room Air 07/13/24 00:14 80 07/12/24 23:00 98.6 F 78 16 148/81 H 94 Room Air 07/12/24 20:00 Room Air PG Care Time/CCT Total # of Minutes Spent Total Time Spent with Patient: Total time spent is greater than 50% in coordination of care (as documented) at patient's floor/unit and/or counseling patient: Coding Level of Care Code 29076 Post Operative Follow-Up Diagnoses Status post exploratory laparotomy Z98.890 Perforated gastric ulcer K25.5
[2024-07-13] MEDS: BUMETANIDE 1 MG TAB PO SCH (08:16)
[2024-07-13 09:29] LABS: BUN Creatinine Ratio 40.6 (10-20); Calcium 9.9 mg/dl (8.6-10.3); Creatinine Clr Calc Pharmacy 46.9 ml/min; Est GFR (African American) 66.6 ml/min; Est GFR (Non-African American) 57.4 ml/min; Magnesium 2.4 mg/dl (1.7-2.4); Phosphorus 3.1 mg/dl (2.5-4.9); Potassium 4.6 mmol/L (3.5-5.1)
--- NOTE | 2024-07-13 12:07 | Hospitalist Progress Note ---
Date of Service July 13, 2024 Assessment & Plan (1) Perforated gastric ulcer: (2) Status post exploratory laparotomy: (3) Acute kidney injury superimposed on CKD: (4) Chronic kidney disease (CKD) stage G3a/A3, moderately decreased glomerular filtration rate (GFR) between 45-59 mL/min/1.73 square meter and albuminuria creatinine ratio greater than 300 mg/g: (5) Acute on chronic diastolic (congestive) heart failure: (6) Colonic mass: (7) Hypothyroidism: Plan 74-year-old female with past medical history of CKD stage III, hypothyroidism, chronic diastolic congestive heart failure who presented to the ED on 06/21/2024 for with complains of abdominal pain after undergoing colonoscopy the day before. Patient had a CT of the abdomen pelvis which showed scattered pneumoperitoneum and raise a concern for bowel perforation. Patient was also found to be in shock secondary to sepsis from perforation and required ICU stay and phenylephrine drip. Patient had a perforated gastric ulcer likely secondary to chronic NSAID use and she underwent gastric washout and repair of the perforated gastric ulcer by surgery on 06/21/2024. She was also found to be in SONI due to septic shock and required single treatment of dialysis for SONI with hyperkalemia. Renal function has improved and is close to her baseline. Nephrology has signed off at this point. #Septic shock due to perforated gastric ulcer with Pseudomonas aeruginosa peritonitis, present on admission #Perforated gastric ulcer status post repair on 06/21/2024, likely secondary to chronic NSAID use Surgery is following the patient She continues to be n.p.o. 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 Surgery is recommended continuing TPN and antibiotics ID saw the patient and have recommended meropenem 2 g IV every 8 hours for Pseudomonas peritonitis until July 26, 2024 with plan to repeat CT abdomen pelvis with IV and p.o. contrast in 2 weeks time on around 07/19/2024 and if collections have improved then could consider DC meropenem sooner. ID has recommended weekly CBC with differential, CMP while patient is on IV antibiotics As per discussion with surgery team: Patient will be okay to discharge once wound VAC has been functioning for at least 24 hours without any issues #SONI superimposed on chronic kidney disease stage III Patient was seen by nephrology during hospital stay She required single treatment of dialysis on admission Renal function has improved and is close to her baseline Avoid nephrotoxic agents Monitor renal function electrolytes #Acute on chronic diastolic congestive heart failure with preserved ejection fraction #Essential hypertension EF is 65% Continue Bumex 1 mg p.o. daily Continue beta-marie I/O monitoring Daily weights Monitor vital signs #Hypothyroidism Continue levothyroxine 75 mcg p.o. daily #Acute blood loss anemia Likely secondary to perforated ulcer Status post PRBC H&H stable Monitor H&H intermittently CODE STATUS: Full code DVT prophylaxis: Bilateral SCDs Discharge planning to acute rehab when cleared by surgery Care plan discussed with patient, nursing staff, and surgery team Admission and Anticipated Discharge Date Admission Date: June 21, 2024 Subjective Patient seen and examined Ambulating with physical therapy in the hallway with a walker Overnight patient had leakage of her wound VAC again which has been dealt with again by wound care team She denies any chest pain or shortness of breath She is on TPN and remains n.p.o. per surgical recommendations Review of Systems Review of Systems: As per HPI Physical Exam Physical Exam: General: No acute distress, speaking in full sentences Psych: Awake and alert HEENT: Anicteric sclera, moist oral mucosa CVS: Regular rate and rhythm Lungs: Bilateral air entry, no wheezing noted Abdomen: Soft, wound VAC in place, no rebound, no guarding Ext: No lower extremity edema, no calf tenderness Neuro: No focal motor deficits noted Results & Data Results & Data Vital Signs (Past 12 Hours) Vital Signs Temp Pulse Pulse Resp BP Pulse Ox O2 Del Method 07/13/24 10:51 36.3 C L 79 19 108/72 96 Room Air 07/13/24 07:21 36.9 C 92 H 20 132/73 94 Room Air 07/13/24 03:00 36.6 C 89 17 138/79 94 Room Air 07/13/24 00:14 80 Laboratory Results Laboratory Results - last 24 hr 07/12/24 07/13/24 07/13/24 18:39 00:14 06:44 Sodium Potassium Chloride Carbon Dioxide Anion Gap BUN Creatinine Est Cr Clr Drug Dosing Est GFR ( Amer) Est GFR (Non-Af Amer) BUN/Creatinine Ratio Glucose POC Glucose 112 H 124 H 110 H Calcium Phosphorus Magnesium 07/13/24 07/13/24 08:25 11:48 Sodium 140 Potassium 4.6 Chloride 113 H Carbon Dioxide 21 Anion Gap 6 BUN 39 H Creatinine 0.96 Est Cr Clr Drug Dosing 46.9 Est GFR ( Amer) 66.6 Est GFR (Non-Af Amer) 57.4 BUN/Creatinine Ratio 40.6 H Glucose 107 H POC Glucose 109 H Calcium 9.9 Phosphorus 3.1 Magnesium 2.4 PG Care Time/CCT Total # of Minutes Spent Total Time Spent with Patient: Total time spent is greater than 50% in coordination of care (as documented) at patient's floor/unit and/or counseling patient: Coding Level of Care Code 16132 SUB INP/OBS CARE 2/35MIN Diagnoses Perforated gastric ulcer K25.5 Status post exploratory laparotomy Z98.890 Acute kidney injury superimposed on CKD N17.9; N18.9 Chronic kidney disease (CKD) stage G3a/A3, moderately decreased glomerular filtration rate (GFR) between 45-59 mL/min/1.73 square meter and albuminuria creatinine ratio greater than 300 mg/g N18.31 Acute on chronic diastolic (congestive) heart failure I50.33 Colonic mass K63.89 Hypothyroidism E03.9
[2024-07-13] MEDS ORDERED: CENTRAL TPN IV SCH (16:00)
[2024-07-13] MEDS ORDERED: [UNRECOGNIZED DRUG - OTHER] IV SCH (16:00)
[2024-07-13] MEDS: CLINOLIPID 20% IV FAT EMULSION 250 ML IV SCH (16:48)
[2024-07-13] MEDS: [UNRECOGNIZED DRUG - OTHER] IV SCH (16:51)
[2024-07-13] MEDS: CENTRAL TPN IV SCH (16:51)
[2024-07-13] MEDS: ACETAMINOPHEN 500 MG TAB PO PRN (21:52)
[2024-07-14 06:31] LABS: BUN Creatinine Ratio 41.7 (10-20); Calcium 9.9 mg/dl (8.6-10.3); Creatinine Clr Calc Pharmacy 40.3 ml/min; Est GFR (African American) 57.7 ml/min; Est GFR (Non-African American) 49.8 ml/min; Magnesium 2.2 mg/dl (1.7-2.4); Phosphorus 3.6 mg/dl (2.5-4.9); Potassium 4.2 mmol/L (3.5-5.1)
--- NOTE | 2024-07-14 09:32 | Hospitalist Progress Note ---
Date of Service July 14, 2024 Assessment & Plan (1) Perforated gastric ulcer: (2) Status post exploratory laparotomy: (3) Acute kidney injury superimposed on CKD: (4) Chronic kidney disease (CKD) stage G3a/A3, moderately decreased glomerular filtration rate (GFR) between 45-59 mL/min/1.73 square meter and albuminuria creatinine ratio greater than 300 mg/g: (5) Acute on chronic diastolic (congestive) heart failure: (6) Colonic mass: (7) Hypothyroidism: Plan 74-year-old female with past medical history of CKD stage III, hypothyroidism, chronic diastolic congestive heart failure who presented to the ED on 06/21/2024 for with complains of abdominal pain after undergoing colonoscopy the day before. Patient had a CT of the abdomen pelvis which showed scattered pneumoperitoneum and raise a concern for bowel perforation. Patient was also found to be in shock secondary to sepsis from perforation and required ICU stay and phenylephrine drip. Patient had a perforated gastric ulcer likely secondary to chronic NSAID use and she underwent gastric washout and repair of the perforated gastric ulcer by surgery on 06/21/2024. She was also found to be in SONI due to septic shock and required single treatment of dialysis for SONI with hyperkalemia. Renal function has improved and is close to her baseline. Nephrology has signed off at this point. #Septic shock due to perforated gastric ulcer with Pseudomonas aeruginosa peritonitis, present on admission #Perforated gastric ulcer status post repair on 06/21/2024, likely secondary to chronic NSAID use Surgery is following the patient She continues to be n.p.o. 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 Surgery is recommended continuing TPN and antibiotics ID saw the patient and have recommended meropenem 2 g IV every 8 hours for Pseudomonas peritonitis until July 26, 2024 with plan to repeat CT abdomen pelvis with IV and p.o. contrast in 2 weeks time on around 07/19/2024 and if collections have improved then could consider DC meropenem sooner. ID has recommended weekly CBC with differential, CMP while patient is on IV antibiotics Patient is still experiencing leakage from wound VAC: Awaiting surgery follow-up #SONI superimposed on chronic kidney disease stage III Patient was seen by nephrology during hospital stay She required single treatment of dialysis on admission Renal function has improved and is close to her baseline Avoid nephrotoxic agents Monitor renal function electrolytes #Acute on chronic diastolic congestive heart failure with preserved ejection fraction #Essential hypertension EF is 65% Continue Bumex 1 mg p.o. daily Continue beta-marie I/O monitoring Daily weights Monitor vital signs #Hypothyroidism Continue levothyroxine 75 mcg p.o. daily #Acute blood loss anemia Likely secondary to perforated ulcer Status post PRBC H&H stable Monitor H&H intermittently CODE STATUS: Full code DVT prophylaxis: Bilateral SCDs Discharge planning to acute rehab when cleared by surgery and wound VAC functioning without any leakage Care plan discussed with patient, nursing staff Admission and Anticipated Discharge Date Admission Date: June 21, 2024 Subjective Patient seen and examined Wound care at bedside and examined the wound with wound care nurse: Pictures taken by wound care nurse Patient denies any chest pain or shortness of breath She had leakage of wound VAC again overnight and required dressing which is all soaked up again Awaiting surgery team follow-up Denies any nausea, vomiting Abdominal pain is in good control with oxycodone and Tylenol Review of Systems Review of Systems: As per HPI Physical Exam Physical Exam: General: No acute distress Psych: Awake and alert HEENT: Anicteric sclera, moist oral mucosa CVS: Regular rate and rhythm Lungs: Bilateral air entry, no wheezing noted Abdomen: Soft, wound with good granulation tissue, please see picture in chart, roberto intact Ext: No lower extremity edema, no calf tenderness Results & Data Results & Data Vital Signs (Past 12 Hours) Vital Signs Temp Pulse Pulse Resp BP Pulse Ox O2 Del Method 07/14/24 07:31 36.7 C 81 20 155/80 H 96 Room Air 07/13/24 23:41 94 H 07/13/24 23:26 36.5 C 76 18 129/74 93 Room Air Laboratory Results Laboratory Results - last 24 hr 07/13/24 07/13/24 07/14/24 11:48 19:01 00:59 Sodium Potassium Chloride Carbon Dioxide Anion Gap BUN Creatinine Est Cr Clr Drug Dosing Est GFR ( Amer) Est GFR (Non-Af Amer) BUN/Creatinine Ratio Glucose POC Glucose 109 H 116 H 122 H Calcium Phosphorus Magnesium 07/14/24 07/14/24 05:40 06:07 Sodium 140 Potassium 4.2 Chloride 112 H Carbon Dioxide 22 Anion Gap 6 BUN 45 H Creatinine 1.08 Est Cr Clr Drug Dosing 40.3 Est GFR ( Amer) 57.7 Est GFR (Non-Af Amer) 49.8 BUN/Creatinine Ratio 41.7 H Glucose 109 H POC Glucose 118 H Calcium 9.9 Phosphorus 3.6 Magnesium 2.2 PG Care Time/CCT Total # of Minutes Spent Total Time Spent with Patient: Total time spent is greater than 50% in coordination of care (as documented) at patient's floor/unit and/or counseling patient: Coding Level of Care Code 89567 SUB INP/OBS CARE 2/35MIN Diagnoses Perforated gastric ulcer K25.5 Status post exploratory laparotomy Z98.890 Acute kidney injury superimposed on CKD N17.9; N18.9 Chronic kidney disease (CKD) stage G3a/A3, moderately decreased glomerular filtration rate (GFR) between 45-59 mL/min/1.73 square meter and albuminuria creatinine ratio greater than 300 mg/g N18.31 Acute on chronic diastolic (congestive) heart failure I50.33 Colonic mass K63.89 Hypothyroidism E03.9
--- NOTE | 2024-07-14 14:26 | Surgery Progress Note ---
Date of Service July 14, 2024 Assessment & Plan (1) Status post exploratory laparotomy: Plan: Status post repair of perforated gastric ulcer. Now with enterocutaneous fistula N.p.o., TPN Goal is to convert high-output fistula into a low output fistula Wound debrided, wound VAC replaced by wound care nurse Continue antibiotic PT/OT, out of bed to chair, ambulate, I-S Patient will likely need home health care or placement, case management involvement Dr. Mendez covering over weekend (2) Perforated gastric ulcer: Admission and Anticipated Discharge Date Admission Date: June 21, 2024 Subjective 3 weeks status post repair of perforated gastric ulcer, now with enteric cutaneous fistula. Wound VAC changed today, debrided at bedside, fistula is now visible. Doing well otherwise. Physical Exam Constitutional: WD/WN, vitals as above Respiratory: normal respiratory effort, lungs clear to auscultation Cardiovascular: RRR, no murmur, no edema Gastrointestinal (Abdomen): normal bowel sounds, soft, nontender, no hepatosplenomegaly Present for wound VAC change, wound examined with some fibrinous and exudate and slough. This was debrided at the bedside. Enterocutaneous fistula visible. Results & Data Vital Signs (Past 12 Hours) Vital Signs Temp Pulse Pulse Resp BP Pulse Ox O2 Del Method 07/14/24 11:27 36.5 C 74 20 134/80 96 Room Air 07/14/24 11:26 70 07/14/24 09:41 Room Air 07/14/24 07:31 36.7 C 81 20 155/80 H 96 Room Air Laboratory Results Laboratory Results - last 24 hr 07/13/24 07/14/24 07/14/24 19:01 00:59 05:40 Sodium 140 Potassium 4.2 Chloride 112 H Carbon Dioxide 22 Anion Gap 6 BUN 45 H Creatinine 1.08 Est Cr Clr Drug Dosing 40.3 Est GFR ( Amer) 57.7 Est GFR (Non-Af Amer) 49.8 BUN/Creatinine Ratio 41.7 H Glucose 109 H POC Glucose 116 H 122 H Calcium 9.9 Phosphorus 3.6 Magnesium 2.2 07/14/24 07/14/24 06:07 11:50 Sodium Potassium Chloride Carbon Dioxide Anion Gap BUN Creatinine Est Cr Clr Drug Dosing Est GFR ( Amer) Est GFR (Non-Af Amer) BUN/Creatinine Ratio Glucose POC Glucose 118 H 106 H Calcium Phosphorus Magnesium PG Care Time/CCT Total # of Minutes Spent Total Time Spent with Patient: Total time spent is greater than 50% in coordination of care (as documented) at patient's floor/unit and/or counseling patient: Coding Level of Care Code 93527 Post Operative Follow-Up Diagnoses Status post exploratory laparotomy Z98.890 Perforated gastric ulcer K25.5
[2024-07-14] MEDS: [UNRECOGNIZED DRUG - OTHER] IV SCH (17:05)
[2024-07-14] MEDS: CENTRAL TPN IV SCH (17:05)
[2024-07-14] MEDS: CLINOLIPID 20% IV FAT EMULSION 250 ML IV SCH (17:06)
[2024-07-14] MEDS: oxyCODONE HCL IR 5 MG TAB (IMMEDIATE RELEASE) PO PRN (20:13)
[2024-07-14] MEDS: MEROPENEM 2,000 MG in 0.9 % SODIUM CHLORIDE 60 ML IV SCH (20:20)
[2024-07-14] MEDS ORDERED: MEROPENEM 2,000 MG in 0.9 % SODIUM CHLORIDE 60 ML IV SCH (21:00)
[2024-07-15 06:05] LABS: Basophils # (auto) 0.04 K/uL (0.00-0.20); Basophils % (auto) 0.4 %; Eosinophils # (auto) 0.28 K/uL (0.00-0.50); Eosinophils % (auto) 3.1 %; Hematocrit (blood only) 28.6 % (37.0-47.0); Hemoglobin 8.7 g/dl (12.0-16.0); Immature Granulocytes # (auto) 0.07 K/uL (0.01-0.20); Immature Granulocytes % (auto) 0.8 %; Lymphocytes # (auto) 0.79 K/uL (1.20-3.40); Lymphocytes % (auto) 8.7 %; Mean Corpuscular Hemoglobin 27.1 pg (25.0-34.0); Mean Corpuscular Hgb Conc 30.4 g/dL (32.0-36.0); Mean Corpuscular Volume 89.1 fL (80.0-100.0); Mean Platelet Volume 10.2 fL (9.4-12.4); Monocytes # (auto) 0.57 K/uL (0.11-0.59); Monocytes % (auto) 6.3 %; Neutrophils # (auto) 7.35 K/uL (1.40-6.50); Neutrophils % (auto) 80.7 %; Platelet Count 408 K/uL (130-400); RDW Coefficient of Variation 14.4 % (11.5-14.5); RDW Standard Deviation 46.5 fL (36.4-46.3); Red Blood Count 3.21 M/uL (4.20-5.40)
[2024-07-15 06:20] LABS: BUN Creatinine Ratio 47.5 (10-20); Calcium 10.1 mg/dl (8.6-10.3); Est GFR (African American) 64.2 ml/min; Est GFR (Non-African American) 55.4 ml/min; Magnesium 2.2 mg/dl (1.7-2.4); Potassium 4.5 mmol/L (3.5-5.1)
--- NOTE | 2024-07-15 10:09 | Hospitalist Progress Note ---
Date of Service July 15, 2024 Assessment & Plan (1) Perforated gastric ulcer: (2) Status post exploratory laparotomy: (3) Acute kidney injury superimposed on CKD: (4) Chronic kidney disease (CKD) stage G3a/A3, moderately decreased glomerular filtration rate (GFR) between 45-59 mL/min/1.73 square meter and albuminuria creatinine ratio greater than 300 mg/g: (5) Acute on chronic diastolic (congestive) heart failure: (6) Colonic mass: (7) Hypothyroidism: Plan 74-year-old female with past medical history of CKD stage III, hypothyroidism, chronic diastolic congestive heart failure who presented to the ED on 06/21/2024 for with complains of abdominal pain after undergoing colonoscopy the day before. Patient had a CT of the abdomen pelvis which showed scattered pneumoperitoneum and raise a concern for bowel perforation. Patient was also found to be in shock secondary to sepsis from perforation and required ICU stay and phenylephrine drip. Patient had a perforated gastric ulcer likely secondary to chronic NSAID use and she underwent gastric washout and repair of the perforated gastric ulcer by surgery on 06/21/2024. She was also found to be in SONI due to septic shock and required single treatment of dialysis for SONI with hyperkalemia. Renal function has improved and is close to her baseline. Nephrology has signed off at this point. #Septic shock due to perforated gastric ulcer with Pseudomonas aeruginosa peritonitis, present on admission #Perforated gastric ulcer status post repair on 06/21/2024, likely secondary to chronic NSAID use Surgery is following the patient She continues to be n.p.o. 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 Surgery is recommended continuing TPN and antibiotics ID saw the patient and have recommended meropenem 2 g IV every 8 hours for Pseudomonas peritonitis until July 26, 2024 with plan to repeat CT abdomen pelvis with IV and p.o. contrast in 2 weeks time on around 07/19/2024 and if collections have improved then could consider DC meropenem sooner. ID has recommended weekly CBC with differential, CMP while patient is on IV antibiotics No wound VAC leakage overnight, awaiting surgery follow-up #SONI superimposed on chronic kidney disease stage III Patient was seen by nephrology during hospital stay She required single treatment of dialysis on admission Renal function has improved and is close to her baseline Avoid nephrotoxic agents Monitor renal function electrolytes #Acute on chronic diastolic congestive heart failure with preserved ejection fraction #Essential hypertension EF is 65% Continue Bumex 1 mg p.o. daily Continue beta-marie I/O monitoring Daily weights Monitor vital signs #Hypothyroidism Continue levothyroxine 75 mcg p.o. daily #Acute blood loss anemia Likely secondary to perforated ulcer Status post PRBC H&H stable Monitor H&H intermittently CODE STATUS: Full code DVT prophylaxis: Bilateral SCDs Discharge planning to acute rehab when cleared by surgery and wound VAC functioning without any leakage Care plan discussed with patient, nursing staff Admission and Anticipated Discharge Date Admission Date: June 21, 2024 Subjective Patient seen and examined No wound VAC issues overnight and no leakage Patient denies any new complaints Pain is under good control with oxycodone and Tylenol Denies any nausea, vomiting Review of Systems Review of Systems: As per HPI Physical Exam Physical Exam: General: No acute distress Psych: Awake and alert HEENT: Anicteric sclera, moist oral mucosa CVS: Regular rate and rhythm Lungs: Bilateral air entry, no wheezing noted Abdomen: Soft, wound VAC in place, no leakage noted Ext: No lower extremity edema, no calf tenderness Results & Data Results & Data Vital Signs (Past 12 Hours) Vital Signs Temp Pulse Pulse Resp BP Pulse Ox O2 Del Method 07/15/24 10:08 90 07/15/24 08:28 Room Air 07/15/24 07:39 36.8 C 91 H 19 135/79 95 Room Air 07/15/24 02:51 36.5 C 96 H 14 159/88 H 94 Room Air 07/14/24 23:42 70 07/14/24 23:39 36.5 C 70 16 151/84 H 95 Room Air Laboratory Results Laboratory Results - last 24 hr 07/14/24 07/14/24 07/15/24 11:50 18:12 00:09 WBC RBC Hgb Hct MCV MCH MCHC RDW Std Deviation RDW Coeff of Rafael Plt Count MPV Immature Gran % (Auto) Neut % (Auto) Lymph % (Auto) [place] % (Auto) Eos % (Auto) Baso % (Auto) Neut # (Auto) Lymph # (Auto) [place] # (Auto) Eos # (Auto) Baso # (Auto) Immature Gran # (Auto) Sodium Potassium Chloride Carbon Dioxide Anion Gap BUN Creatinine Est Cr Clr Drug Dosing Est GFR ( Amer) Est GFR (Non-Af Amer) BUN/Creatinine Ratio Glucose POC Glucose 106 H 109 H 111 H Calcium Magnesium 07/15/24 05:33 WBC 9.10 RBC 3.21 L Hgb 8.7 L Hct 28.6 L MCV 89.1 MCH 27.1 MCHC 30.4 L RDW Std Deviation 46.5 H RDW Coeff of Rafael 14.4 Plt Count 408 H MPV 10.2 Immature Gran % (Auto) 0.8 Neut % (Auto) 80.7 Lymph % (Auto) 8.7 [place] % (Auto) 6.3 Eos % (Auto) 3.1 Baso % (Auto) 0.4 Neut # (Auto) 7.35 H Lymph # (Auto) 0.79 L [place] # (Auto) 0.57 Eos # (Auto) 0.28 Baso # (Auto) 0.04 Immature Gran # (Auto) 0.07 Sodium 138 Potassium 4.5 Chloride 111 H Carbon Dioxide 22 Anion Gap 5 BUN 47 H Creatinine 0.99 Est Cr Clr Drug Dosing 44.0 Est GFR ( Amer) 64.2 Est GFR (Non-Af Amer) 55.4 BUN/Creatinine Ratio 47.5 H Glucose 110 H POC Glucose Calcium 10.1 Magnesium 2.2 PG Care Time/CCT Total # of Minutes Spent Total Time Spent with Patient: Total time spent is greater than 50% in coordination of care (as documented) at patient's floor/unit and/or counseling patient: Coding Level of Care Code 09976 SUB INP/OBS CARE 2/35MIN Diagnoses Perforated gastric ulcer K25.5 Status post exploratory laparotomy Z98.890 Acute kidney injury superimposed on CKD N17.9; N18.9 Chronic kidney disease (CKD) stage G3a/A3, moderately decreased glomerular filtration rate (GFR) between 45-59 mL/min/1.73 square meter and albuminuria creatinine ratio greater than 300 mg/g N18.31 Acute on chronic diastolic (congestive) heart failure I50.33 Colonic mass K63.89 Hypothyroidism E03.9
--- NOTE | 2024-07-15 11:49 | Surgery Progress Note ---
Date of Service July 15, 2024 Assessment & Plan (1) Status post exploratory laparotomy: Plan: Status post repair of perforated gastric ulcer. Now with enterocutaneous fistula N.p.o., TPN Goal is to convert high-output fistula into a low output fistula Wound debrided, wound VAC replaced by wound care nurse Continue antibiotic PT/OT, out of bed to chair, ambulate, I-S Patient will likely need home health care or placement, case management involvement (2) Perforated gastric ulcer: Admission and Anticipated Discharge Date Admission Date: June 21, 2024 Subjective doing well. No complaints. The wound VAC Is now working. Physical Exam Physical Exam: awake/alert, no distress Gastrointestinal (Abdomen): Inspection/Auscultation: + abdominal surgical incision (midline wound with vac in place holding good seal) and + abdominal surgical drain present (IR drain present with scant output); abdomen not distended Percussion/Palpation: abdomen soft Results & Data Vital Signs (Past 12 Hours) Vital Signs Temp Pulse Pulse Resp BP Pulse Ox O2 Del Method 07/15/24 10:08 90 07/15/24 08:28 Room Air 07/15/24 07:39 36.8 C 91 H 19 135/79 95 Room Air 07/15/24 02:51 36.5 C 96 H 14 159/88 H 94 Room Air Laboratory Results 07/15/24 07/15/24 07/14/24 Range/Units 05:33 00:09 18:12 WBC 9.10 (4.8-10.8) K/ul RBC 3.21 L (4.20-5.40) M/uL Hgb 8.7 L (12.0-16.0) g/dl Hct 28.6 L (37.0-47.0) % MCV 89.1 (80.0-100.0) fL MCH 27.1 (25.0-34.0) pg MCHC 30.4 L (32.0-36.0) g/dL RDW Std Deviation 46.5 H (36.4-46.3) fL RDW Coeff of Rafael 14.4 (11.5-14.5) % Plt Count 408 H (130-400) K/uL MPV 10.2 (9.4-12.4) fL Immature Gran % (Auto) 0.8 % Neut % (Auto) 80.7 % Lymph % (Auto) 8.7 % [place] % (Auto) 6.3 % Eos % (Auto) 3.1 % Baso % (Auto) 0.4 % Neut # (Auto) 7.35 H (1.40-6.50) K/uL Lymph # (Auto) 0.79 L (1.20-3.40) K/uL [place] # (Auto) 0.57 (0.11-0.59) K/uL Eos # (Auto) 0.28 (0.00-0.50) K/uL Baso # (Auto) 0.04 (0.00-0.20) K/uL Immature Gran # (Auto) 0.07 (0.01-0.20) K/uL Sodium 138 (136-145) mmol/L Potassium 4.5 (3.5-5.1) mmol/L Chloride 111 H (98-107) mmol/L Carbon Dioxide 22 (21-32) mmol/L Anion Gap 5 (3-11) BUN 47 H (6-23) mg/dl Creatinine 0.99 (0.6-1.2) mg/dl Est Cr Clr Drug Dosing 44.0 ml/min Est GFR ( Amer) 64.2 ml/min Est GFR (Non-Af Amer) 55.4 ml/min BUN/Creatinine Ratio 47.5 H (10-20) Glucose 110 H (70-99(Fasting)) mg/dl POC Glucose 111 H 109 H (70-99) mg/dl Calcium 10.1 (8.6-10.3) mg/dl Magnesium 2.2 (1.7-2.4) mg/dl 07/14/24 Range/Units 11:50 WBC (4.8-10.8) K/ul RBC (4.20-5.40) M/uL Hgb (12.0-16.0) g/dl Hct (37.0-47.0) % MCV (80.0-100.0) fL MCH (25.0-34.0) pg MCHC (32.0-36.0) g/dL RDW Std Deviation (36.4-46.3) fL RDW Coeff of Rafael (11.5-14.5) % Plt Count (130-400) K/uL MPV (9.4-12.4) fL Immature Gran % (Auto) % Neut % (Auto) % Lymph % (Auto) % [place] % (Auto) % Eos % (Auto) % Baso % (Auto) % Neut # (Auto) (1.40-6.50) K/uL Lymph # (Auto) (1.20-3.40) K/uL [place] # (Auto) (0.11-0.59) K/uL Eos # (Auto) (0.00-0.50) K/uL Baso # (Auto) (0.00-0.20) K/uL Immature Gran # (Auto) (0.01-0.20) K/uL Sodium (136-145) mmol/L Potassium (3.5-5.1) mmol/L Chloride (98-107) mmol/L Carbon Dioxide (21-32) mmol/L Anion Gap (3-11) BUN (6-23) mg/dl Creatinine (0.6-1.2) mg/dl Est Cr Clr Drug Dosing ml/min Est GFR ( Amer) ml/min Est GFR (Non-Af Amer) ml/min BUN/Creatinine Ratio (10-20) Glucose (70-99(Fasting)) mg/dl POC Glucose 106 H (70-99) mg/dl Calcium (8.6-10.3) mg/dl Magnesium (1.7-2.4) mg/dl
[2024-07-15] MEDS: [UNRECOGNIZED DRUG - OTHER] IV SCH (16:15)
[2024-07-15] MEDS: CENTRAL TPN IV SCH (16:15)
[2024-07-15] MEDS: CLINOLIPID 20% IV FAT EMULSION 250 ML IV SCH (16:16)
[2024-07-16 06:51] LABS: BUN Creatinine Ratio 51.5 (10-20); Calcium 10.1 mg/dl (8.6-10.3); Creatinine Clr Calc Pharmacy 44.9 ml/min; Est GFR (African American) 65.8 ml/min; Est GFR (Non-African American) 56.7 ml/min; Magnesium 2.2 mg/dl (1.7-2.4); Phosphorus 3.6 mg/dl (2.5-4.9); Potassium 4.6 mmol/L (3.5-5.1)
--- NOTE | 2024-07-16 10:53 | Surgery Progress Note ---
Date of Service July 16, 2024 Assessment & Plan (1) Status post exploratory laparotomy: Plan: Status post repair of perforated gastric ulcer. Now with enterocutaneous fistula N.p.o., TPN Goal is to convert high-output fistula into a low output fistula Wound debrided, wound VAC replaced by wound care nurse Continue antibiotic PT/OT, out of bed to chair, ambulate, I-S Patient will likely need home health care or placement, case management involvement (2) Perforated gastric ulcer: Admission and Anticipated Discharge Date Admission Date: June 21, 2024 Subjective doing well overnight. No complaints. Physical Exam Physical Exam: awake/alert, no distress Gastrointestinal (Abdomen): Inspection/Auscultation: + abdominal surgical incision (midline wound with vac in place holding good seal) and + abdominal surgical drain present (IR drain present with scant output); abdomen not distended Percussion/Palpation: + abdomen tender and abdomen soft Results & Data Vital Signs (Past 12 Hours) Vital Signs Temp Pulse Resp BP Pulse Ox O2 Del Method 07/16/24 07:34 36.7 C 83 18 125/74 95 Room Air Laboratory Results 07/16/24 07/16/24 07/15/24 Range/Units 06:07 06:01 23:56 Sodium 138 (136-145) mmol/L Potassium 4.6 (3.5-5.1) mmol/L Chloride 110 H (98-107) mmol/L Carbon Dioxide 23 (21-32) mmol/L Anion Gap 5 (3-11) BUN 50 H (6-23) mg/dl Creatinine 0.97 (0.6-1.2) mg/dl Est Cr Clr Drug Dosing 44.9 ml/min Est GFR ( Amer) 65.8 ml/min Est GFR (Non-Af Amer) 56.7 ml/min BUN/Creatinine Ratio 51.5 H (10-20) Glucose 112 H (70-99(Fasting)) mg/dl POC Glucose 124 H 112 H (70-99) mg/dl Calcium 10.1 (8.6-10.3) mg/dl Ionized Calcium 1.46 H (1.12-1.32) mmol/L Phosphorus 3.6 (2.5-4.9) mg/dl Magnesium 2.2 (1.7-2.4) mg/dl Triglycerides 189 H (0-150) mg/dl 07/15/24 07/15/24 Range/Units 16:39 12:04 Sodium (136-145) mmol/L Potassium (3.5-5.1) mmol/L Chloride (98-107) mmol/L Carbon Dioxide (21-32) mmol/L Anion Gap (3-11) BUN (6-23) mg/dl Creatinine (0.6-1.2) mg/dl Est Cr Clr Drug Dosing ml/min Est GFR ( Amer) ml/min Est GFR (Non-Af Amer) ml/min BUN/Creatinine Ratio (10-20) Glucose (70-99(Fasting)) mg/dl POC Glucose 110 H 110 H (70-99) mg/dl Calcium (8.6-10.3) mg/dl Ionized Calcium (1.12-1.32) mmol/L Phosphorus (2.5-4.9) mg/dl Magnesium (1.7-2.4) mg/dl Triglycerides (0-150) mg/dl
--- NOTE | 2024-07-16 13:25 | Hospitalist Progress Note ---
Date of Service July 16, 2024 Assessment & Plan (1) Perforated gastric ulcer: (2) Status post exploratory laparotomy: (3) Acute kidney injury superimposed on CKD: (4) Chronic kidney disease (CKD) stage G3a/A3, moderately decreased glomerular filtration rate (GFR) between 45-59 mL/min/1.73 square meter and albuminuria creatinine ratio greater than 300 mg/g: (5) Acute on chronic diastolic (congestive) heart failure: (6) Colonic mass: (7) Hypothyroidism: Plan 74-year-old female with past medical history of CKD stage III, hypothyroidism, chronic diastolic congestive heart failure who presented to the ED on 06/21/2024 for with complains of abdominal pain after undergoing colonoscopy the day before. Patient had a CT of the abdomen pelvis which showed scattered pneumoperitoneum and raise a concern for bowel perforation. Patient was also found to be in shock secondary to sepsis from perforation and required ICU stay and phenylephrine drip. Patient had a perforated gastric ulcer likely secondary to chronic NSAID use and she underwent gastric washout and repair of the perforated gastric ulcer by surgery on 06/21/2024. She was also found to be in SONI due to septic shock and required single treatment of dialysis for SONI with hyperkalemia. Renal function has improved and is close to her baseline. Nephrology has signed off at this point. #Septic shock due to perforated gastric ulcer with Pseudomonas aeruginosa peritonitis, present on admission #Perforated gastric ulcer status post repair on 06/21/2024, likely secondary to chronic NSAID use Surgery is following the patient She continues to be n.p.o. 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 Surgery is recommended continuing TPN and antibiotics ID saw the patient and have recommended meropenem 2 g IV every 8 hours for Pseudomonas peritonitis until July 26, 2024 with plan to repeat CT abdomen pelvis with IV and p.o. contrast in 2 weeks time on around 07/19/2024 and if collections have improved then could consider DC meropenem sooner. ID has recommended weekly CBC with differential, CMP while patient is on IV antibiotics No wound VAC leakage overnight, awaiting surgery follow-up #SONI superimposed on chronic kidney disease stage III Patient was seen by nephrology during hospital stay She required single treatment of dialysis on admission Renal function has improved and is close to her baseline Avoid nephrotoxic agents Monitor renal function electrolytes specially since patient is on Bumex at this point #Acute on chronic diastolic congestive heart failure with preserved ejection fraction #Essential hypertension EF is 65% Continue Bumex reduced dose to 0.5 mg p.o. daily Continue beta-marie I/O monitoring Daily weights Monitor vital signs #Hypothyroidism Continue levothyroxine 75 mcg p.o. daily #Acute blood loss anemia Likely secondary to perforated ulcer Status post PRBC H&H stable Monitor H&H intermittently CODE STATUS: Full code DVT prophylaxis: Bilateral SCDs Discharge planning to [facility] when cleared by surgery and wound VAC functioning without any leakage: Likely tomorrow Care plan discussed with patient, nursing staff Admission and Anticipated Discharge Date Admission Date: June 21, 2024 Subjective Patient seen and examined She is sitting up in a chair and working on her computer No overnight events noted No wound VAC leakage events noted Patient does not want to be discharged today and would like to wait till tomorrow to see the wound care team and her own surgical team in the morning prior to making decision on discharge to rehab She denies any fever, chills, chest pain, shortness of breath, nausea, vomiting. Abdominal pain is under good control with pain medications Review of Systems Review of Systems: As per HPI Physical Exam Physical Exam: General: No acute distress Psych: Awake and alert HEENT: Anicteric sclera, moist oral mucosa CVS: Regular rate and rhythm Lungs: Bilateral air entry, no wheezing noted Abdomen: Soft, wound VAC in place, no leakage noted Ext: No lower extremity edema, no calf tenderness Results & Data Results & Data Vital Signs (Past 12 Hours) Vital Signs Temp Pulse Resp BP Pulse Ox O2 Del Method 07/16/24 07:34 36.7 C 83 18 125/74 95 Room Air Laboratory Results Laboratory Results - last 24 hr 07/15/24 07/15/24 07/16/24 16:39 23:56 06:01 Sodium Potassium Chloride Carbon Dioxide Anion Gap BUN Creatinine Est Cr Clr Drug Dosing Est GFR ( Amer) Est GFR (Non-Af Amer) BUN/Creatinine Ratio Glucose POC Glucose 110 H 112 H 124 H Calcium Ionized Calcium Phosphorus Magnesium Triglycerides 07/16/24 06:07 Sodium 138 Potassium 4.6 Chloride 110 H Carbon Dioxide 23 Anion Gap 5 BUN 50 H Creatinine 0.97 Est Cr Clr Drug Dosing 44.9 Est GFR ( Amer) 65.8 Est GFR (Non-Af Amer) 56.7 BUN/Creatinine Ratio 51.5 H Glucose 112 H POC Glucose Calcium 10.1 Ionized Calcium 1.46 H Phosphorus 3.6 Magnesium 2.2 Triglycerides 189 H PG Care Time/CCT Total # of Minutes Spent Total Time Spent with Patient: Total time spent is greater than 50% in coordination of care (as documented) at patient's floor/unit and/or counseling patient: Coding Level of Care Code 54775 SUB INP/OBS CARE 2/35MIN Diagnoses Perforated gastric ulcer K25.5 Status post exploratory laparotomy Z98.890 Acute kidney injury superimposed on CKD N17.9; N18.9 Chronic kidney disease (CKD) stage G3a/A3, moderately decreased glomerular filtration rate (GFR) between 45-59 mL/min/1.73 square meter and albuminuria creatinine ratio greater than 300 mg/g N18.31 Acute on chronic diastolic (congestive) heart failure I50.33 Colonic mass K63.89 Hypothyroidism E03.9
[2024-07-16] MEDS: [UNRECOGNIZED DRUG - OTHER] IV SCH (16:21)
[2024-07-16] MEDS: CENTRAL TPN IV SCH (16:21)
[2024-07-16] MEDS: CLINOLIPID 20% IV FAT EMULSION 250 ML IV SCH (16:22)
[2024-07-17 06:03] LABS: BUN Creatinine Ratio 47.4 (10-20); Creatinine Clr Calc Pharmacy 44.9 ml/min; Est GFR (African American) 65.8 ml/min; Est GFR (Non-African American) 56.7 ml/min; Magnesium 2.1 mg/dl (1.7-2.4); Phosphorus 3.1 mg/dl (2.5-4.9); Potassium 4.4 mmol/L (3.5-5.1)
[2024-07-17] MEDS: BUMETANIDE 1 MG TAB PO SCH (07:45)
--- NOTE | 2024-07-17 11:58 | Surgery Progress Note ---
Date of Service July 17, 2024 Assessment & Plan (1) Status post exploratory laparotomy: Plan: Status post repair of perforated gastric ulcer. Now with enterocutaneous fistula Wound vac held over wknd, just broke seal this morning around 1a Wound care replaced vac today and thus far is holding well Needs to continue NPO for bowel rest with TPN to allow fistula time to become low output ID last note recommended repeat CT scan around ~07/19, since pt remains admitted and is nearing discharge we will order repeat scan today Will re-engage ID for their final recommendations as CT scan ordered as inpt From our standpoint if vac continues to hold and ID able to provide their final recs we would be okay with pt discharging as early as tomorrow Case mgnmt on board. Also discussed with hospitalist (2) Perforated gastric ulcer: Admission and Anticipated Discharge Date Admission Date: June 21, 2024 Supervising Physician Co-Signing Physician Notes Patient seen examined, labs reviewed, agree with above. 3 weeks status post laparotomy with repair of perforated gastric ulcer, now with enterocutaneous fistula. Overall doing well, wound VAC change this morning. On exam she is afebrile with stable vitals, her wound VAC is in place. Continue wound VAC to abdomen, attempted to convert fistula to a low output fistula and eventual closure. Continue TPN and antibiotics. ID was recommending follow-up imaging on the , we will obtain this today. Will need placement, likely discharge in the next day or 2. Subjective Patient feeling fairly well. Says wound vac held up over the wknd until about 1am this morning it started leaking. Pain controlled. No nausea. Does not feel quite ready to leave today. Physical Exam Physical Exam: awake/alert, no distress Respiratory: normal respiratory effort Gastrointestinal (Abdomen): Percussion/Palpation: abdomen soft wound vac currently holding good seal, dark drainage in canister about half full inferior skin is becoming less red and appears to be healing Results & Data Vital Signs (Past 12 Hours) Vital Signs Temp Pulse Resp BP Pulse Ox O2 Del Method 07/17/24 08:00 Room Air 07/17/24 07:14 98.4 F 95 H 16 125/74 95 Room Air PG Care Time/CCT Total # of Minutes Spent Total Time Spent with Patient: Total time spent is greater than 50% in coordination of care (as documented) at patient's floor/unit and/or counseling patient: Coding Level of Care Code 81526 Post Operative Follow-Up Diagnoses Status post exploratory laparotomy Z98.890 Perforated gastric ulcer K25.5
--- NOTE | 2024-07-17 12:59 | Hospitalist Progress Note ---
Date of Service July 17, 2024 Assessment & Plan (1) Septic shock due to Pseudomonas species: Plan: Due to perforated gastric ulcer and associated peritonitis. Pseudomonas isolated. Transiently on pressor support. Septic shock has resolved. Infectious disease consultation and recommendations appreciated. She will remain on intravenous meropenem through July 26. (2) Perforated gastric ulcer: Plan: She underwent exploratory laparotomy with oversew of gastric ulcer perforation on June 21. 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 She is n.p.o. and on TPN currently. Appreciate general surgery consultation and recommendations. Abdominal pelvic CT scan will be repeated today, July 17. (3) Acute kidney injury superimposed on CKD: Plan: Improving. Continue to monitor intake and output. Serial labs. CKD is stage III (4) Acute on chronic diastolic (congestive) heart failure: Plan: Now resolved. Continue to monitor intake and output. Serial chest x-ray as needed (5) Colonic mass: Plan: Incidental finding. This will need follow-up at a later date (6) Hypothyroidism: Plan: Stable. Continue current oral replacement therapy Plan Repeat abdomen pelvic CT scan today, July 17. She remains n.p.o. on TPN. She also remains on intravenous meropenem through July 26. Hopeful placement at [facility] yet this week Admission and Anticipated Discharge Date Admission Date: June 21, 2024 Subjective Alert and oriented. No distress. Case discussed with general surgery. She has a known enterocutaneous fistula and wound dehiscence from surgery done earlier this admission. Repeat abdominal pelvic CT scan will be obtained today, July 17. She remains n.p.o. and on TPN. She also remains on intravenous meropenem through July 26. Appreciate infectious disease consultation and recommendations. She also had nephrology consultation earlier this admission when she had acute renal failure and required transient hemodialysis. They have subsequently signed off. Hopeful discharge to [facility] within the next day or 2 Review of Systems 2 Review of Systems: Constitutionalno fever or chills ENTno blurred vision, no double vision, no epistaxis, no sore throat Respiratoryno cough, no wheezing, no shortness of breath Cardiacno palpitations, no chest pain, no syncope Cas nausea, vomiting, diarrhea, melena, hematochezia GUno urinary retention, no urinary incontinence, no dysuria, no hematuria Musculoskeletalno joint pain, no muscle tenderness Skinno bruising, no rashes, no pruritus Neurono isolated weakness, no paresthesia, no weakness Psychno depression, no anxiety Physical Exam 2 Physical Exam: General-alert and oriented x3, no fever, no chills HEENT-head atraumatic and normocephalic, pupils equal and reactive to light, extraocular muscles intact Neck-no lymphadenopathy or thyromegaly, trachea midline Chest-clear to auscultation. No rales, wheezing or rhonchi Cardiac-regular rate and rhythm, normal S1 and S2 Abdomen-normal bowel sounds, no hepatosplenomegaly. Abdominal wall incision has evidence of dehiscence with wound VAC in place. She has underlying enterocutaneous fistula Extremities-no cyanosis, clubbing, or edema Neuro-cranial nerves II through XII intact, motor and sensory function within normal limits, strength symmetrical with generalized weakness, no focal deficits Psych-flat affect. Results & Data Results & Data Vital Signs (Past 12 Hours) Vital Signs Temp Pulse Resp BP Pulse Ox O2 Del Method 07/17/24 08:00 Room Air 07/17/24 07:14 36.9 C 95 H 16 125/74 95 Room Air Laboratory Results 07/15/24 05:33 07/17/24 05:30 PG Care Time/CCT Total # of Minutes Spent Total Time Spent with Patient: Total time spent is greater than 50% in coordination of care (as documented) at patient's floor/unit and/or counseling patient: Coding Level of Care Code 15356 SUB INP/OBS CARE 3/50MIN Diagnoses Septic shock due to Pseudomonas species A41.52; R65.21 Perforated gastric ulcer K25.5 Acute kidney injury superimposed on CKD N17.9; N18.9 Acute on chronic diastolic (congestive) heart failure I50.33 Colonic mass K63.89 Hypothyroidism E03.9
--- NOTE | 2024-07-17 14:46 | Infectious Disease Progress Nt ---
Date of Service July 17, 2024 Assessment & Plan (1) Status post exploratory laparotomy: (2) Perforated gastric ulcer: Plan 74yo F with h/o total right hip arthroplasty, lumbar stenosis on NSAIDs, neuropathy, CKD, recent colonoscopy showing possible stricture in colon with repeat cscope on 06/20 showing ulcerations at site of stricture s/p biopsies who presented on 06/21 with abdominal pain, nausea/vomiting, SOB, and lightheadedness. On admission, she was afebrile, vss. Initial labs with WBC 7.54, Cr 3.98, lactate 4--> 3.4, procalcitonin 23.10---> 25.80. CXR showed potential free air under the right hemidiaphragm. CTAP showed mild ascites and scattered pneumoperitoneum c/f perforation. The site of perforation was not clearly delineated but likely somewhere within the colon given recent colonoscopy. She underwent exploratory laparotomy, gastric washout, repair of the perforated gastric ulcer, SINCERE drain x 2 on 06/21 (per op note, there was copious amounts of bile-stained purulent fluid in the peritoneum that was sent for culture, colon did not appear to be perforated, stomach had a large hole in the anterior portion of the antrum, no obvious tumor). She was intubated postop and required low-dose vasopressor. Course c/b oliguria but did not require HD as UOP improved. Outpatient colon pathology showed focal mild epithelial atypia associated with ulceration, no e/o neoplasm/malignancy. She was initially on meropenem-> ertapenem. Repeat CTAP done on 06/25 with oral contrast via NG tube showed a possible small leak. An NG tube was placed. Labs noted for increase leukocytosis to 15.63 on 06/27. Peritoneal fluid cultures finalized with Pseudomonas aeruginosa. Her antibiotics were changed back to meropenem on 06/27. ID consulted for Pseudomonas growing in peritoneal fluid. Repeat CTAP on 06/29 had interval progression of the loculated fluid collections within the abdomen primarily along the left hepatic lobe, ? postoperative seromas or developing abscesses. S/p IR aspiration with drain placement on 06/29. Cx with lactobacillus. SINCERE drains removed 07/03, IR drain removed 07/06. 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 Patient changed to NPO, on TPN, wound vac to abdomen with goal for low output EC fistula. TTE negative for vegetations. Last ID note plan was for meropenem for at least 3 weeks (through 07/26) and repeat CT in 2 weeks (around 07/19). CTAP is currently ordered. # Perforated gastric ulcer/viscus w/ peritonitis and significant leakage: subsequent development of abscess vs post op seroma - S/p ex lap and washout, drain placement # Pseudomonas aeruginosa peritonitis # SONI on CKD - improved # Septic shock in the setting of perforated bowel - resolved # PCN allergy: anaphylaxis # Cipro SE; myalgias - will f/u on CTAP w/ contrast when resulted - continue meropenem 2g IV q12h (renally dosed) - current plan is abx at least through 07/26 - please monitor CBC w diff and CMP at least twice weekly while inpatient ID will continue to follow. If questions or concerns, contact Infectious Disease Call Center . Maida Gomez MD [facility], Division of Infectious Diseases [facility]: [phone] Admission and Anticipated Discharge Date Admission Date: June 21, 2024 Subjective This patient recommendation is based on a telemedicine consult request which was completed asynchronously through chart review and information provided by the primary physician. The patient was not seen or examined today. The evaluation is consultative in nature and all patient care and treatment decisions can either be accepted or rejected by the patient's primary hospital-based treating physician using their own independent medical judgment for their patient. Time Spent Reviewing Chart: 31+ minutes No telepresenter available. CTAP has been ordered. Results & Data Vital Signs (Past 12 Hours) Vital Signs Temp Pulse Resp BP Pulse Ox O2 Del Method 07/17/24 08:00 Room Air 07/17/24 07:14 36.9 C 95 H 16 125/74 95 Room Air Laboratory Results Labs reviewed. Diagnostic Findings Imaging reviewed.
[2024-07-17] MEDS: CLINOLIPID 20% IV FAT EMULSION 250 ML IV SCH (15:36)
[2024-07-17] MEDS: [UNRECOGNIZED DRUG - OTHER] IV SCH (15:39)
[2024-07-17] MEDS: CENTRAL TPN IV SCH (15:39)
[2024-07-17] MEDS: OPTIRAY 320 100ml IV ONE (19:02)
--- NOTE | 2024-07-17 22:32 | CT Scan Report ---
Exam(s): CT ABDOMEN + PELVIS With Contrast Oral - High Density Amt: 30 ml gastrograffin , IV Amt: 91 ml opti 320 EXAM: CT Abdomen and Pelvis With Intravenous Contrast CLINICAL HISTORY: Gas or perforation. TECHNIQUE: Axial computed tomography images of the abdomen and pelvis with intravenous contrast. CTDI is 25 mGy and DLP is 1143 mGy-cm. Automated exposure control was utilized for the study. A dose lowering technique was utilized adhering to the principles of ALARA. CONTRAST: Patient received 30 ml gastrograffin of Oral - High Density and 91 ml opti 320 of IV contrast COMPARISON: CT abdomen and pelvis 07/08/2024 FINDINGS: Lung bases: A 1 cm right middle lobe nodule is present. Small left and trace right pleural effusions. No consolidation. ABDOMEN: Liver: Redemonstrated fluid collection adjacent to hepatic segment 5 measures 2.4 x 1.9 x 2.4 cm. Gallbladder and bile ducts: Prominence of the gallbladder wall is nonspecific. Adjacent to the gallbladder fossa there is a now loculated 4.1 x 1.0 x 2.7 cm fluid collection a focus of gas. No calcified stones. Pancreas: Unremarkable. No mass. No ductal dilation. Spleen: A stable sub-capsular 1.8 cm fluid collection surrounding the spleen is noted. Adrenals: Indeterminate 2.6 cm left adrenal lesion. The right adrenal gland is unremarkable. Kidneys and ureters: Unremarkable. No solid mass. No hydronephrosis. Stomach and bowel: Marked thickening of the stomach wall. PELVIS: Appendix: No findings to suggest acute appendicitis. Bladder: Unremarkable. No mass. Reproductive: Unremarkable as visualized. ABDOMEN and PELVIS: Intraperitoneal space: There is nonspecific free fluid in the abdomen and pelvis. No free air. Bones/joints: There is a right hip arthroplasty. There are degenerative changes of the spine. No acute fracture. No dislocation. Soft tissues: There is dehiscence of the anterior abdominal wall which contains packing material that is hyperdense. The oral contrast in the small bowel is the same density. Vasculature: Mild atherosclerosis. No abdominal aortic aneurysm. Lymph nodes: There are prominent gastroesophageal lymph nodes. IMPRESSION: 1. There is dehiscence of the anterior abdominal wall which contains packing material that is hyperdense. The oral contrast in the small bowel is the same density. As such fistula between the small bowel in the abdominal dehiscence cannot be excluded. There is no free oral contrast within the abdominal cavity. 2. Prominence of the gallbladder wall is nonspecific. Adjacent to the gallbladder fossa there is a now loculated 4.1 x 1.0 x 2.7 cm fluid collection a focus of gas. This could represent an abscess. Cannot exclude acute cholecystitis. 3. Redemonstrated fluid collection adjacent to hepatic segment 5 measures 2.4 x 1.9 x 2.4 cm. This could represent an abscess or hematoma, seroma is considered less likely. 4. A stable sub-capsular 1.8 cm fluid collection surrounding the spleen is noted. This is indeterminate and could represent a hematoma or abscess. 5. Marked thickening of the stomach wall. This may be infectious, inflammatory or malignant. 6. There is nonspecific free fluid in the abdomen and pelvis. 7. Indeterminate 2.6 cm left adrenal lesion. 8. A 1 cm right middle lobe nodule is present. Small left and trace right pleural effusions. Recommend further evaluation with dedicated CT of the chest, this could be performed on a nonemergent basis. Electronically signed by: Gisela Mathews MD 07/17/24 22:31 PM
[2024-07-17 22:56] LABS: Basophils # (auto) 0.02 K/uL (0.00-0.20); Basophils % (auto) 0.2 %; Eosinophils # (auto) 0.16 K/uL (0.00-0.50); Eosinophils % (auto) 1.5 %; Hemoglobin 8.6 g/dl (12.0-16.0); Immature Granulocytes # (auto) 0.12 K/uL (0.01-0.20); Immature Granulocytes % (auto) 1.2 %; Lymphocytes # (auto) 1.09 K/uL (1.20-3.40); Lymphocytes % (auto) 10.5 %; Mean Corpuscular Hemoglobin 27.7 pg (25.0-34.0); Mean Corpuscular Hgb Conc 31.9 g/dL (32.0-36.0); Mean Corpuscular Volume 86.8 fL (80.0-100.0); Mean Platelet Volume 10.7 fL (9.4-12.4); Monocytes # (auto) 0.58 K/uL (0.11-0.59); Monocytes % (auto) 5.6 %; Neutrophils # (auto) 8.42 K/uL (1.40-6.50); Platelet Count 336 K/uL (130-400); RDW Coefficient of Variation 14.6 % (11.5-14.5); RDW Standard Deviation 46.9 fL (36.4-46.3); Red Blood Count 3.11 M/uL (4.20-5.40); White Blood Count 10.39 K/ul (4.8-10.8)
[2024-07-17 23:14] LABS: Albumin Globulin Ratio 0.7 (0.9-2); Albumin Level 2.7 gm/dl (3.4-5.0); Bilirubin,Total 0.3 mg/dl (0.2-1.0); Calcium 9.8 mg/dl (8.6-10.3); Creatinine Clr Calc Pharmacy 43.5 ml/min; Est GFR (African American) 63.4 ml/min; Est GFR (Non-African American) 54.7 ml/min; Total Protein 6.7 gm/dl (6.0-8.3)
[2024-07-17 23:43] LABS: INR 1.1 (0.9-1.1); Partial Thromboplastin Time 26 Seconds (21-31); Prothrombin Time 11.4 Seconds (9.0-12.0)
--- NOTE | 2024-07-18 00:51 | Ultrasound Report ---
Exam(s): US VENOUS BILATERAL LOWER EXTREMITIES EXAM: US Duplex Bilateral Lower Extremities Veins CLINICAL HISTORY: PE's on CT A/P. TECHNIQUE: Real-time duplex ultrasound scan of the bilateral lower extremity veins integrating B-mode two-dimensional vascular structure, Doppler spectral analysis, color flow Doppler imaging and compression. COMPARISON: No relevant prior studies available. FINDINGS: Right deep veins: Unremarkable. No DVT in the right common femoral, femoral, proximal deep femoral or popliteal veins. The veins demonstrate normal color flow, are normally compressible, with normal phasic flow and/or augmentation response. The interrogated calf veins are patent. Right superficial veins: Unremarkable. No thrombus in the saphenofemoral junction. Left deep veins: Occlusive thrombus noted involving the proximal left profunda femoral vein. There is a small meniscus of the thrombotic material along the posterior margin of the common femoral vein. However, the femoral vein is compressible and demonstrate normal color flow. The left superficial femoral vein is patent. The left popliteal vein is patent. There is occlusive thrombus in the proximal left calf veins; specifically, the peroneal veins and 1 of 2 paired posterior tibial veins. Left superficial veins: Unremarkable. No thrombus in the saphenofemoral junction. Soft tissues: No acute findings. No popliteal cyst. IMPRESSION: 1. Occlusive thrombus noted involving the proximal left profunda femoral vein. No significant extension into the left common femoral or superficial femoral veins noted. 2. There is occlusive thrombus in the proximal left calf veins; specifically, the peroneal veins and 1 of 2 paired posterior tibial veins. No proximal/central extension into the left popliteal vein. 3. No evidence for deep vein thrombosis involving the right lower extremity. Electronically signed by: Errol Cervantes MD 07/18/24 00:50 AM
[2024-07-18] MEDS: oxyCODONE HCL IR 5 MG TAB (IMMEDIATE RELEASE) PO PRN (01:37)
[2024-07-18] MEDS: HEPARIN SODIUM/DEXTROSE 25,000 UNITS/500 ML BAG IV SCH (04:27)
[2024-07-18] MEDS: Heparin IV Adult Wt-Based Low-Dose *NO* INITIAL Bolus Protocol IV SCH (04:36)
[2024-07-18 05:42] VITALS: RESP 18
[2024-07-18 07:03] LABS: BUN Creatinine Ratio 42.9 (10-20); Calcium 10.4 mg/dl (8.6-10.3); Creatinine Clr Calc Pharmacy 44.1 ml/min; Est GFR (African American) 64.9 ml/min; Magnesium 2.1 mg/dl (1.7-2.4); Phosphorus 3.1 mg/dl (2.5-4.9); Potassium 4.8 mmol/L (3.5-5.1)
--- NOTE | 2024-07-18 07:50 | Hospitalist Progress Note ---
Date of Service July 18, 2024 Assessment & Plan (1) Septic shock due to Pseudomonas species: Plan: Due to perforated gastric ulcer and associated peritonitis. Pseudomonas isolated. Transiently on pressor support. Septic shock has resolved. Infectious disease consultation and recommendations appreciated. She will remain on intravenous meropenem through July 26. (2) Perforated gastric ulcer: Plan: She underwent exploratory laparotomy with oversew of gastric ulcer perforation on June 21. 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 She is n.p.o. and on TPN currently. Appreciate general surgery consultation and recommendations. Abdominal pelvic CT scan repeated 07/17 shows continued fluid collections (some contain air foci) and new found PE and DVT, initial anticoagulation held due to gastric ulcer (3) Acute kidney injury superimposed on CKD: Plan: Improving. Continue to monitor intake and output. Serial labs. CKD is stage III (4) Acute on chronic diastolic (congestive) heart failure: Plan: Now resolved. Continue to monitor intake and output. Serial chest x-ray as needed (5) Colonic mass: Plan: Incidental finding. This will need follow-up at a later date (6) Hypothyroidism: Plan: Stable. Continue current oral replacement therapy Plan Repeat abdomen pelvic CT scan today, July 17. She remains n.p.o. on TPN. She also remains on intravenous meropenem through July 26. Hopeful placement at [facility] yet this week Admission and Anticipated Discharge Date Admission Date: June 21, 2024 Results & Data Results & Data Vital Signs (Past 12 Hours) Vital Signs Temp Pulse Resp BP Pulse Ox O2 Del Method 07/18/24 05:00 98.8 F 95 H 18 145/82 H 94 Room Air 07/18/24 01:52 Room Air 07/18/24 01:00 98.6 F 91 H 16 149/85 H 95 Room Air 07/17/24 20:23 98.6 F 98 H 16 144/82 H 96 Room Air PG Care Time/CCT Total # of Minutes Spent Total Time Spent with Patient: Total time spent is greater than 50% in coordination of care (as documented) at patient's floor/unit and/or counseling patient: Coding Diagnoses Septic shock due to Pseudomonas species A41.52; R65.21 Perforated gastric ulcer K25.5 Acute kidney injury superimposed on CKD N17.9; N18.9 Acute on chronic diastolic (congestive) heart failure I50.33 Colonic mass K63.89 Hypothyroidism E03.9
--- NOTE | 2024-07-18 08:22 | Surgery Progress Note ---
Date of Service July 18, 2024 Assessment & Plan (1) Enterocutaneous fistula: Plan: 06/21/24 Status post repair of perforated gastric ulcer, Now with enterocutaneous fistula Wound vac replaced yesterday , leaking this AM from superior aspect wound. WCN notified , nursing able to change and reinforce vac dressing Keep drainage off skin and gown if leaking noticed Continue NPO, bowel rest with TPN General surgery notified by hospitalist CT scan from 07/17/24 showing concerns for PE in RLL and DVT in L femoral vein VDS showing DVT in L femoral and L calf veins, hospitalist placed on heparin Gtt management per their recommendations. VSS ID following current recs are to continue meropenem until 07/26/24 General surgery will follow Admission and Anticipated Discharge Date Admission Date: June 21, 2024 Supervising Physician Co-Signing Physician Notes Discussed with DARLYN, agree with above. Status post laparotomy with repair of gastric ulcer now with EC fistula. Wound VAC leak inferiorly patch today by wound care. Repeat CT yesterday was initially read as new collection of loculated gas and liquid near the gallbladder fossa, but on my review with the radiologist this appears to be similar to prior scan and is actually getting smaller. All of the collections appear to be smaller. Her white blood cell count is normal. The EC fistula appears to be slightly smaller. At this point would continue with antibiotics, no indication for drainage. Continue management of fistula to convert to low output and eventually close. Awaiting placement. She also had a new PE and DVT and is being treated with heparin, will transition over to oral anticoagulation. Subjective Vac leaking some mild nausea yesterday and last night from oral contrast no vomiting Review of Systems Respiratory: no dyspnea Cardiovascular: no chest pain Gastrointestinal: + abdominal pain; no nausea and no vomit ing Physical Exam Constitutional: cooperative and comfortable; no acute distress Respiratory: normal respiratory effort and able to speak in complete sentences; no respiratory distress Gastrointestinal (Abdomen): Inspection/Auscultation: + abdominal surgical incision (wound vac ) Results & Data Vital Signs (Past 12 Hours) Vital Signs Temp Pulse Pulse Resp BP Pulse Ox O2 Del Method 07/18/24 08:01 98 H 07/18/24 05:00 98.8 F 95 H 18 145/82 H 94 Room Air 07/18/24 01:52 Room Air 07/18/24 01:00 98.6 F 91 H 16 149/85 H 95 Room Air 07/17/24 20:23 98.6 F 98 H 16 144/82 H 96 Room Air PG Care Time/CCT Total # of Minutes Spent Total Time Spent with Patient: Total time spent is greater than 50% in coordination of care (as documented) at patient's floor/unit and/or counseling patient: Coding Level of Care Code 39055 Post Operative Follow-Up Diagnoses Enterocutaneous fistula K63.2
--- NOTE | 2024-07-18 10:25 | Infectious Disease Progress Nt ---
Date of Service July 18, 2024 Assessment & Plan (1) Status post exploratory laparotomy: (2) Perforated gastric ulcer: (3) Intra-abdominal abscess: Plan 74yo F with h/o total right hip arthroplasty, lumbar stenosis on NSAIDs, neuropathy, CKD, recent colonoscopy showing possible stricture in colon with repeat cscope on 06/20 showing ulcerations at site of stricture s/p biopsies who presented on 06/21 with abdominal pain, nausea/vomiting, SOB, and lightheadedness. On admission, she was afebrile, vss. Initial labs with WBC 7.54, Cr 3.98, lactate 4--> 3.4, procalcitonin 23.10---> 25.80. CXR showed potential free air under the right hemidiaphragm. CTAP showed mild ascites and scattered pneumoperitoneum c/f perforation. The site of perforation was not clearly delineated but likely somewhere within the colon given recent colonoscopy. She underwent exploratory laparotomy, gastric washout, repair of the perforated gastric ulcer, SINCERE drain x 2 on 06/21 (per op note, there was copious amounts of bile-stained purulent fluid in the peritoneum that was sent for culture, colon did not appear to be perforated, stomach had a large hole in the anterior portion of the antrum, no obvious tumor). She was intubated postop and required low-dose vasopressor. Course c/b oliguria but did not require HD as UOP improved. Outpatient colon pathology showed focal mild epithelial atypia associated with ulceration, no e/o neoplasm/malignancy. She was initially on meropenem-> ertapenem. Repeat CTAP done on 06/25 with oral contrast via NG tube showed a possible small leak. An NG tube was placed. Labs noted for increase leukocytosis to 15.63 on 06/27. Peritoneal fluid cultures finalized with Pseudomonas aeruginosa. Her antibiotics were changed back to meropenem on 06/27. ID consulted for Pseudomonas growing in peritoneal fluid. Repeat CTAP on 06/29 had interval progression of the loculated fluid collections within the abdomen primarily along the left hepatic lobe, ? postoperative seromas or developing abscesses. S/p IR aspiration with drain placement on 06/29. Cx with lactobacillus. SINCERE drains removed 07/03, IR drain removed 07/06. 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 Patient changed to NPO, on TPN, wound vac to abdomen with goal for low output EC fistula. TTE negative for vegetations. Last ID note plan was for meropenem for at least 3 weeks (through 07/26) and repeat CT in 2 weeks (around 07/19). CTAP w/ contrast on 07/17 showed findings c/w EC fistula; nonspecific gallbladder wall prominence, adjacent to GB fossa there is now loculated 4.1 x 1 x 2.7 cm fluid collection with focus of gas, could represent abscess, cannot exclude acute cholecystitis; redemonstrated fluid collection adjacent to hepatic segment 2.4 x 1.9 x 2.4cm could represent abscess or hematoma, seroma less likely; stable sub-capsular 1.8cm fluid collection surrounding spleen could represent hematoma or abscess; marked thickening of stomach wall; nonspecific free fluid in abdomen/pelvis; 1cm RML nodule; PE in RLL and DVT in left lower extremity. LE doppler with left DVT in calf veins and profunda femoral v. Patient has a new loculated collection next to gallbladder fossa, and stable ongoing collections (noted next to liver and spleen) though the size in 06/29 study were larger. Unclear if the liver/spleen collections are hematoma vs abscess. However, with the new loculated collection, I am concerned about ongoing infection. Per IR, this is not amenable to percutaneous drainage. Unclear if surgical drainage is a possibility for dx and therapeutic purposes, which would also help in determining whether current abx are appropriate. Will extend meropenem another 4 weeks with repeat imaging near time of completion. If surgical drainage is possible, then that would be helpful in management. There was some question of acute cholecystitis, but her LFTs/bili arent elevated and no RUQ tenderness. # New loculated collection adjacent to gallbladder fossa # Perforated gastric ulcer/viscus w/ peritonitis and significant leakage: subsequent development of abscess vs post op seroma/hematoma - S/p ex lap and washout, drain placement # Pseudomonas aeruginosa peritonitis # SONI on CKD - improved # Septic shock in the setting of perforated bowel - resolved # PCN allergy: anaphylaxis # Cipro SE; myalgias - would discuss with surgery to see if collections are amenable to drainage - continue meropenem 2g IV q12h (renally dosed) - extend abx an additional 4 weeks (up to 08/15) with repeat CTAP with IV near end of therapy - please monitor CBC w diff, CMP, ESR/CRP at least twice weekly while inpatient, once weekly outpatient - she needs outpatient follow up with local ID provider if she gets discharged ID will continue to follow. If questions or concerns, contact Infectious Disease Call Center . Maida Gomez MD [facility], Division of Infectious Diseases [facility]: [phone] Admission and Anticipated Discharge Date Admission Date: June 21, 2024 Subjective Subsequent visit was provided via telemedicine using two-way real-time interactive telecommunication between the patient and the telemedicine provider. For the duration of the visit, the provider was performing the assessment from a different facility than the patient. This includesuse of bluetooth stethoscope forauscultationperformed by the telepresenter that the telemedicine provider can hear if described in the physical exam. [employer] contact information: Please call [facility] Call Center . (Phone Number For Physician Use Only) After establishing a telemedicine visit, patient was: Patient was verified with two unique identifiers, Patient/authorized rep acknowledged consent and understanding and Gave permission to continue telehealth session Time Spent with Patient: Subsequent => 55 min Patient reports doing well. She has abdominal discomfort/pain more in the center of abdomen at site of wound vac. Says she had some right sided pain a week ago but that has gotten better. Physical Exam Physical Exam: General: Awake, alert, no acute distress HEENT: NC/AT, EOMI, mmm Neck: supple Lungs: respirations non-labored Heart: nl peripheral perfusion Abdomen: soft, ttp in left of wound vac and right flank, wound vac with significant drainage Ext: bl LE edema Results & Data Vital Signs (Past 12 Hours) Vital Signs Temp Pulse Pulse Resp BP Pulse Ox O2 Del Method 07/18/24 08:01 98 H 07/18/24 05:00 37.1 C 95 H 18 145/82 H 94 Room Air 07/18/24 01:52 Room Air 07/18/24 01:00 37.0 C 91 H 16 149/85 H 95 Room Air Laboratory Results Abx: Meropenem 06/21 - 06/22, 06/27- ongoing Ertapenem Micro: Peritoneal fluid culture 06/21 Pseudomonas aeruginosa (peoples S) Blood culture 06/22 NG Aspiration culture 06/29 #1 Lactobacillus species Aspiration culture 06/29 #2 NGTD
[2024-07-18 11:28] LABS: ANTI-Xa, UFH(UnfractionatedHep < 0.10 IU/ml (0.3-0.7)
[2024-07-18] MEDS: HEPARIN SOD (PORCINE) 1000 UNIT/ML IV ONE (12:00)
--- NOTE | 2024-07-18 16:28 | Discharge Summary ---
Discharge Summary Date of Service July 18, 2024 Principal Dx & Hospital Course #1 = Principal Diagnosis (1) Septic shock due to Pseudomonas species: presented to the ER 06/21 with abdominal pain after undergoing a colonoscopy, during which an area of stricture with ulceration was noted. subsequently developed abdominal pain CTA/P showed pneumoperitoneum suspicious for bowel perforation. Chest x-ray suspected free air Presented in septic shock from peritonitis, taken for emergency ex lap Ex lap identified a perforated gastric ulcer and Uriel patch of perforated ulcer was performed. 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 into dehisced abdominal wound TPN restarted 07/08/2024, discussed with general surgery at [facility] wound care to placed wound vacc 07/10 with special sponge to help reduce effuence from fistulae while helping wound heal Patient has Pseudomonas peritonitis remains on appropriately renal dosed meropenem duration yet to be determined by infectious disease still with drainage from her operative incisions, will rc base duration on CT scan to be performed in two weeks I did speak to IR at [facility] they feel they may possible gain acess for aspiration but not drain to determine if antibiotics would need to be amended as this seems to have expanded while on meropenem. (2) Pulmonary emboli: Incidentally noted on CT abd pelvis, started on heparin gtt, hemodynamically stable, will have one dose lovenox at 1800 07/18, and further AC based on need for procedure and or start/stop heparin gtt once arrives at [facility] did have acute drop in hgb without clear source, transfused 07/07 2 u prbc, has had stable hgb since (3) Acute kidney injury superimposed on CKD: SONI (acute kidney injury): She underwent hemodialysis 06/22 for SONI & hyperkalemia likely as a result of ATN from her septic shock. no further dialysis needed Continue to monitor intake and output. Serial labs. CKD is stage III (4) Acute on chronic diastolic (congestive) heart failure: clinically stable Echo July 08 with normal EF no significant valvular abnormalities and no valvular vegetations Nebivolol held (5) Hypothyroidism: Stable. Plan Discussion with [facility] in the afternoon of 07/18. Patient has had little improvement with wound VAC on small bowel fistula and has been persistently n.p.o. with TPN. There is discovery of a loculated gas containing fluid collection in gallbladder fossa which may be slightly enlarged despite being on meropenem therapy infectious diseases concern for additional pathogen. IR at [facility] is possibly amenable to obtaining an aspirate. Persistent peritoneal inflammation on CT scan with wound dehiscence and small bowel fistula General Surgery at her she feels he had can evaluate the patient to see if fistula would need to be closed Pressing issue is a physiologically stable but recently found pulmonary embolism and DVT patient initiated on heparin therapy this was switched to subcutaneous Lovenox with decision for [place] to determine if they wish to continue heparin therapy. The Lovenox dose will be given 1800 hrs. on 924 likely wearing off in the morning of 925 and decision on long-term anticoagulation could be undertaken at that point in time. [facility] return transfer agreement is excepted and we will gladly take the patient back when she becomes stable Notes For Next Care Provider Need to determine anticoagulation upon arrival to [facility] Admission HPI Per Admitting Provider This is a 74-year-old female who presented to the emergency department secondary to abdominal pain. Patient underwent a colonoscopy yesterday. Patient notes that this was a follow-up colonoscopy as she had a colonoscopy in April of this year that showed a possible stricture in her colon. I did discuss with her hot head machine operator, Dr. Davila notes that he did the colonoscopy on 06/20/2024 and he got to the area of potential stricture where he found that patient had many ulcerated areas. He said that he was able to traverse this area and no stricture was present. He said that he perform this maneuver without any difficulty. He did raise a concern that the ulcerations were either ischemic or related to NSAID use. He did not feel that this appeared malignant. He did take biopsies with cold forceps. He said that this area in question was in the ascending colon in close proximity to the cecum. The patient notes that she had an abdominal pain almost immediately following the procedure which resolved somewhat with Tylenol but it persisted throughout today. Patient says that she was able to drink an Ensure at approximately noon today which was her most recent oral intake but she had some nausea vomiting following this. She then began to feel lightheaded and dizzy as well as cold and clammy and therefore was referred to the emergency department after discussion with her hot head machine operator. Since arrival to the emergency department she has had labs and imaging which I independent reviewed. Patient did have a CT scan of the abdomen and pelvis which showed the patient had mild ascites and scattered pneumoperitoneum which raise a concern for a bowel perforation. A chest x-ray was performed and there is potential free air under the right hemidiaphragm on the study. A CBC revealed white blood cell count was normal. Hemoglobin and hematocrit were 10.1 and 33.4. Platelet count was 4-25,000. Coagulation studies revealed an INR of 1.2. Chemistry profile showed sodium was 131 with a potassium of 4.7. BUN and creatinine were 53 and 3.9. Patient's lipase was elevated at 178. In the emergency department the patient was noted to be relatively hypotensive with systolic blood pressure in 80s. She did receive approximate 3 L of intravenous fluids and her blood pressure did respond to this. At the time of my exam the patient was resting comfortably in bed. She does not appear to be in any distress but did complain of some abdominal discomfort. Discharge Exam Awake appears fatigued persistent abdominal pain persistent abdominal wound drainage Discharge Plan Discharge Items Patient Disposition: Transfer Inpatient Rehab Fac Reason For Visit: PERF ULCER Discharge Diagnosis: repair of perforated gastric ulcer enterocutaneous fistula Activity: Per Instructions section Lifting: No more than 10 pounds Bathing Comment: you can shower. no soaking in pools/bath for 2weeks Exercise/Sports: Wait until after follow-up appointment Driving/Machine Use: no driving until cleared by surgeon Non-emergency contact: Surgeon Call non-emergency contact if: you have a fever, your temperature is above 101.5, your wound has increased redness, your wound has increased drainage and your wound pain has increased Follow-up/Referrals: Flakito Rizzo DO, NOELLE [Physician] - (call office for follow up in 1-2 weeks ) Mychal Hall MD [Primary Care Provider] - Diet: Nothing by Mouth Addtl Attending Provider Instructions: Continue on a PPI at discharge Avoid NSAIDs You will need a follow up with a GI doctor upon discharge You are to remain nothing to eat/drink by mouth outside of ice chips/small sips of water with meds. You will continue on TPN (peripheral nutrition ) via PICC line until your cleared by the surgeon to start a diet orally Wound vac care as outine by wound care nurse recommendations Stand-Alone Forms: [facility] Medications and DC Order Prescriptions: No Action cholecalciferol (vitamin D3) 50 mcg (2,000 unit) tablet 50 mcg PO BID coQ10 (ubiquinol) 200 mg capsule 200 mg PO HS multivitamin Tablet 1 tab PO QAM ascorbate calcium (vitamin C) 500 mg tablet 500 mg PO QAM glucosamine-chondroitin 900 mg tablet 450 mg PO BID alprazolam [Xanax] 0.5 mg tablet 0.5 mg PO HS Qty: 90 1RF levothyroxine [Synthroid] 75 mcg tablet 75 mcg PO QAM Qty: 90 3RF allopurinol 100 mg tablet 100 mg PO HS Qty: 90 3RF telmisartan [Micardis] 80 mg tablet 80 mg PO HS 30 Days Qty: 90 3RF pramipexole 0.5 mg tablet 0.5 mg PO HS Qty: 90 3RF Rx Instructions: administer 2 - 3 hours before bedtime spironolactone 25 mg tablet 25 mg PO QAM Qty: 90 3RF nebivolol 10 mg tablet 10 mg PO QAM Qty: 90 3RF oxycodone 5 mg tablet 5 - 10 mg PO Q6 PRN (Reason: pain) Qty: 120 0RF Rx Instructions: Take as needed for Pain. furosemide 40 mg tablet 40 mg PO DAILY Qty: 90 3RF atorvastatin 10 mg tablet 10 mg PO .Every Other Day 30 Days Qty: 30 2RF (DME) Wheeled Walker Misc See Rx Instructions .MEDSUPPLY Qty: 1 0RF Rx Instructions: As directed diclofenac potassium 50 mg tablet 50 mg PO TID Qty: 270 3RF fluticasone propionate 50 mcg/actuation spray,suspension 2 spray intranasal QAM PRN (Reason: sinus congestion) Qty: 32 5RF magnesium 250 mg tablet 250 mg PO HS Kelp (iodine) 150 mcg tablet 150 mcg PO QAM calcium carbonate [Calcium 600] 600 mg calcium (1,500 mg) Tablet 600 mg PO HS Estroven Cmplt Menopause Rlf 4 mg Tablet 4 mg PO QAM clindamycin HCl 300 mg capsule 600 mg PO UD PRN (Reason: dental procedure) Rx Instructions: take one hour prior to dental appointment sennosides-docusate sodium [Senokot-S] 8.6-50 mg tablet 1 tab-cap PO DAILY PRN (Reason: Constipation) Rx Instructions: Take daily to prevent constipation acetaminophen 500 mg capsule 1,000 mg PO TID PRN (Reason: Pain) Rx Instructions: Take 3 times per day to lessen pain. lysine 500 mg Tablet 500 mg PO QAM omega-3 fatty acids 1,000 mg Capsule 1,000 mg PO DAILY vitamin B complex Tablet 1 tab PO DAILY Krames/Other Patient Handouts: Low-Fiber Diet Admission Data Admit Date/Time: 06/21/24 23:06 Attending Provider: Kip Mercado Admit Provider: Jaaml Wright Primary Care Provider: Mychal Hall Other Providers: [facility]; [facility]; [facility]; Flakito Rizzo; Rigoberto Bernal; Mychal Layton; Edwige Catherine; Holden Gonzalez; Mylene Sutton; Ct Mcghee; Marcelle Bergeron; Elinor Castillo; Maida Gomez; Gerardo Storm; Adela Figueroa; Elsa Guo Hospital Stay Data Consultations 06/21/24 20:37 ED Decision to Admit Stat 06/21/24 23:40 Consult Software Sales Consultant Routine 06/22/24 07:01 Consult Nephrology Routine 06/23/24 12:00 Consult Hospitalist Routine 06/27/24 11:41 Consult Infectious Diseases Routine 07/18/24 16:14 Burn CD for patient Stat Procedures Performed Operation Date: 06/21/24 21:10 Actual Procedures p Exploratory Laparotomy, Gastric Washout, Repair of Perforated Gastric Ulcer(Not Applicable) - Flakito Rizzo DO, NOELLE Diagnostic Imagining Performed 06/21/24 19:07 CT abd pelvis wo con Stat 06/22/24 07:32 sono, invasive monitoring [US point of care ultrasound] Urgent 06/25/24 06:00 CT abd pelvis oral con only Routine 06/29/24 IR FNA w/img 1st lesion CT Routine 06/29/24 07:16 CT Abd and Pelvis [CT abdomen pelvis wo/w con] Urgent 06/29/24 10:[address] periton/retro w/gdnce Urgent 09/11/24 08:04 CT abd pelvis wo con Routine 07/08/24 11:00 CT abd pelvis oral and IV con Routine 07/17/24 11:41 CT abd pelvis oral and IV con Routine 07/17/24 22:19 US venous doppler LE BI Stat Discharge Instructions Given to Patient (Per Discharging Provider) Continue on a PPI at discharge Avoid NSAIDs You will need a follow up with a GI doctor upon discharge You are to remain nothing to eat/drink by mouth outside of ice chips/small sips of water with meds. You will continue on TPN (peripheral nutrition ) via PICC line until your cleared by the surgeon to start a diet orally Wound vac care as outine by wound care nurse recommendations Total Time Total Time Spent Total Time Spent (In Minutes): It required greater than 30 minutes to prepare this patient for discharge. Coding Level of Care Code 23427 INP/OBS DISCH >30 MIN Diagnoses Septic shock due to Pseudomonas species A41.52; R65.21 Pulmonary emboli I26.99 Acute kidney injury superimposed on CKD N17.9; N18.9 Acute on chronic diastolic (congestive) heart failure I50.33 Hypothyroidism E03.9
[2024-07-18] MEDS: [UNRECOGNIZED DRUG - OTHER] IV SCH (17:13)
[2024-07-18] MEDS: CENTRAL TPN IV SCH (17:13)
[2024-07-18] MEDS ORDERED: ENOXAPARIN 1 MG/KG SQ SCH (18:00)
[2024-07-18 20:21] VITALS: O2SAT 92
[2024-07-18] MEDS: ENOXAPARIN 80 MG/0.8 ML SYR SQ SCH (21:08)
[2024-07-18] MEDS: HEPARIN DRIP- STOP ORDER SCH (21:10)
[2024-07-18] MEDS: ACETAMINOPHEN 1,000 MG/100 ML VIAL IV PRN (22:11)
[2024-07-18 23:48] VITALS: BP 100/64; PULSE 80; TEMP 98.6
== END 2024-07-19 01:15 | disposition short-term general hospital (02) | DRG 853 ==
LOC: ED 18:46 → OR 21:00 → 1E 23:06 → SUATTDRO 23:06 → 2S 06-25 15:00 → 3E 07-15 12:27 → 2S 07-18 00:55

== ENCOUNTER 2025-02-28 19:26 | Inpatient (IN) ==
[2025-02-28 21:00] LABS: Albumin Level 3.8 gm/dl (3.4-5.0); BUN Creatinine Ratio 24.4 (10-20); Basophils # (auto) 0.01 K/uL (0.00-0.20); Basophils % (auto) 0.1 %; Bilirubin,Total 0.6 mg/dl (0.2-1.0); Creatinine Clr Calc Pharmacy 24.8 ml/min; Eosinophils # (auto) 0.13 K/uL (0.00-0.50); Eosinophils % (auto) 1.5 %; Globulin 3.9 gm/dl (2.5-4.0); Hematocrit (blood only) 29.9 % (37.0-47.0); Hemoglobin 9.7 g/dl (12.0-16.0); Immature Granulocytes # (auto) 0.11 K/uL (0.01-0.20); Immature Granulocytes % (auto) 1.3 %; Lymphocytes # (auto) 1.09 K/uL (1.20-3.40); Mean Corpuscular Hemoglobin 30.1 pg (25.0-34.0); Mean Corpuscular Hgb Conc 32.4 g/dL (32.0-36.0); Mean Corpuscular Volume 92.9 fL (80.0-100.0); Mean Platelet Volume 11.5 fL (9.4-12.4); Monocytes % (auto) 9.5 %; Neutrophils # (auto) 6.26 K/uL (1.40-6.50); Neutrophils % (auto) 74.6 %; Platelet Count 325 K/uL (130-400); RDW Coefficient of Variation 15.5 % (11.5-14.5); RDW Standard Deviation 51.6 fL (36.4-46.3); Red Blood Count 3.22 M/uL (4.20-5.40); Total Protein 7.7 gm/dl (6.0-8.3)
[2025-02-28] MEDS: OPTIRAY 320 100ml IV ONE (21:49)
[2025-02-28] MEDS: SODIUM CHLORIDE 0.9% 1,000 ML IV ONE (21:58)
--- NOTE | 2025-02-28 22:50 | Emergency Department Note ---
Impression & Plan Postoperative ileus, SONI (acute kidney injury) ED Provider Note NAME: LAN TURK AGE: 74 SEX: F : 1950 ARRIVES VIA: Walk-In INFORMANT: Patient, ED PROVIDER(S): Nilo Soto MD CHIEF COMPLAINT: Nausea, vomit, diarrhea HPI: This is a 74-year-old female presenting for nausea vomiting and diarrhea. Patient states that she had a prolonged history of intestinal fistula. She recently had this repaired about 1 week ago. She had diarrhea after this which self resolved and she was discharged home. She then had 2 more days of diarrhea which again has resolved. She has now noted new onset nausea and vomiting. She feels weak, tired with decreased appetite. She reports no fevers. She reports no chest pain or shortness of breath. Does not for significant abdominal pain ROS: See above HPI for pertinent positives & negatives. A total of 10 systems reviewed and were otherwise negative. PAST MEDICAL HISTORY: See Below PAST SURGICAL HISTORY: See Below FAMILY HISTORY: See Below SOCIAL HISTORY: See Below HOME MEDICATIONS: See Below ALLERGIES: See Below VITALS: See Below PHYSICAL EXAMINATION: General: resting comfortably in no acute distress Head: Normocephalic and atraumatic Eyes: Normal inspection, extraocular muscles intact Ear, nose, throat: Normal external exam Neck: Normal range of motion Respiratory: lungs clear to auscultation bilaterally Cardiovascular: Regular rate/rhythm, no murmur GI: soft, nontender, no guarding or rebound Extremities: nontender, moves all extremities Neuro: The patient awake and alert, appropriately conversive, no focal deficits, symmetric faces Skin: Warm, dry, and intact MEDICAL DECISION MAKING: This is a 74-year-old female presenting for nausea vomiting and diarrhea. Patient diarrhea has resolved however she has persistent nausea and vomiting starting in the past 2 days. She feels dehydrated we will give fluids at this time. Will check blood work and urinalysis. Patient 1 L normal saline - Patient's creatinine is slightly elevated at 1.72, otherwise she is anemic 9.7. Slight elevation in ALT -CT imaging does reveal signs of ileus -Discussed findings with the patient, she states she feels weak the bladder she will need stay in the hospital. -Care discussed with Dr. Jordan for admission Differential diagnosis: SBO, abscess, ileus, surgical infection Diagnostics interpreted by me: ECG: None Cardiac Monitoring: An order was placed for continuous cardiac monitoring. The monitor shows a rate of 89 with sinus rhythm. Past Med/Surg History Problem List (Updated 03/01/25 @ 00:34 by Nilo Soto MD) SONI (acute kidney injury) (Acute) Postoperative ileus (Acute) Transaminitis Weakness Mild dehydration Nausea and vomiting Ileus Cervical stenosis (uterine cervix) Thickened endometrium Abnormal finding on imaging Malnutrition Pulmonary emboli Intra-abdominal abscess Enterocutaneous fistula Septic shock due to Pseudomonas species Acute on chronic diastolic (congestive) heart failure Acute kidney injury superimposed on CKD Status post exploratory laparotomy Perforated gastric ulcer Hyperkalemia SONI (acute kidney injury) Septic shock Perforated bowel (Acute) Free intraperitoneal air Uterine mass Adrenal mass 1 cm to 4 cm in diameter Arthrofibrosis of left hip joint Abnormal CT scan Hip arthritis Colonic mass Abnormal colonoscopy Positive colorectal cancer screening using Cologuard test Positive colorectal cancer screening using Cologuard test Hyperparathyroidism UTI (urinary tract infection) Neuropathy Hyponatremia Anemia S/P total right hip arthroplasty Impaired glucose metabolism Grade II diastolic dysfunction Periodic limb movement disorder (PLMD) Chronic kidney disease (CKD) stage G3a/A3, moderately decreased glomerular filtration rate (GFR) between 45-59 mL/min/1.73 square meter and albuminuria creatinine ratio greater than 300 mg/g Hyperlipidemia Lumbar stenosis with neurogenic claudication Severe at L4-5 Gout Hypothyroidism HTN (hypertension) Medical History Acute on chronic diastolic (congestive) heart failure hx, ~05/2024, "occurred when she had a perforated gastric ulcer" Adrenal mass 1 cm to 4 cm in diameter hx 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 has had epidural steroid injections and physical therapy Hyperparathyroidism pt unsure of details Hypothyroidism Hyperlipidemia Hypertension Hx of gout never had symptoms, had elevated uric acid levels. Hx of basal cell carcinoma Chronic kidney disease, stage 3 plans to see [facility] Nephrology Hx of migraines prior to menopause Surgical History H/O exploratory laparotomy (06/21/24) Exploratory Laparotomy, Gastric Washout, Repair of Perforated Gastric Ulcer(Not Applicable) - Flakito Rizzo, DO, FACS S/P epidural steroid injection History of right hip replacement Hx of laparoscopy for tx endometriosis Hx of colonoscopy S/P Mohs surgery for basal cell carcinoma History of section Family History Brother Myocardial infarction Hypertension Smoker Grandmother (Maternal) Diabetes Father Hypertension Cancer bladder Stroke Myocardial infarction Mother Hypertension Asthma Congestive heart failure Myocardial infarction Sister Hypertension Eczema Denies family history of Ovarian cancer Prostate cancer Breast cancer Colorectal cancer Social History Smoking Status: Never smoker Second Hand Exposure: Yes (hx growing up); Do You Dip or Chew Tobacco: No; Hx Alcohol Use: Yes (none for a long time) Alcohol type: beer and wine Alcohol Intake Frequency: Monthly or Less Hx Substance Use: No Preferred Language: Kiswahili Communication Ability: Effective Visual Impairment: No Limitations Hearing Ability: Normal Drive Worker Required: No Beliefs That Will Affect Care: None marital status: / Current Living Situation: Alone current occupational status: employed 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 How many Children do You have: 1 Feels Safe at Home: Yes Childhood Exposure to Second-Hand Smoke: Yes Diet: regular caffeine: Yes during the past year weight has: remained stable Dental Care, Regularly: Yes Physical Activity Frequency: Daily Seatbelt Use: always Sunscreen Use: Yes Assistive Devices: Glasses Allergies Allergies Allergy/AdvReac Type Severity Reaction Status Date / Time Penicillins Allergy Severe Anaphylaxis Verified 02/28/25 21:50 ciprofloxacin AdvReac Intermediate myalgia Verified 02/28/25 21:50 [id number] Reductase AdvReac Intermediate muscle Verified 02/28/25 21:50 Inhibitor aches Home Meds Home Medications Medication Instructions Recorded Confirmed iodine 150 mcg tablet (Kelp 150 mcg PO QAM 10/16/22 02/28/25 (iodine)) acetaminophen 500 mg capsule 1,000 mg PO Q8H 04/26/24 02/28/25 clindamycin HCl 300 mg capsule 600 mg PO UD PRN dental procedure 04/26/24 02/28/25 lysine 500 mg tablet 500 mg PO QAM Cold Sores 04/26/24 02/28/25 cholecalciferol (vitamin D3) 50 50 mcg PO DAILY 09/29/24 02/28/25 mcg (2,000 unit) tablet loperamide 2 mg capsule 2 mg PO UD PRN Diarrhea 09/29/24 02/28/25 atorvastatin 10 mg tablet 10 mg PO 3XWK 01/16/25 02/28/25 ascorbic acid (vitamin C) 100 mg 100 mg PO DAILY 02/28/25 02/28/25 tablet (Vitamin C) calcium carbonate 300 mg PO BID 02/28/25 02/28/25 epinephrine 0.3 mg/0.3 mL 0.3 mg IM DIRECTED PRN 02/28/25 02/28/25 injection, auto-injector (EpiPen) anaphylaxis oxycodone 10 mg tablet 10 mg PO Q4H PRN pain 02/28/25 02/28/25 Previous Rx's Medication Instructions Recorded Wheeled Walker #1 ea 10/13/22 levothyroxine 75 mcg tablet 75 mcg PO QAM #90 tabs 04/19/24 (Synthroid) fluticasone propionate 50 2 spray intranasal QAM PRN sinus 05/16/24 mcg/actuation nasal congestion #32 grams spray,suspension allopurinol 100 mg tablet 100 mg PO HS #90 tabs 05/17/24 pramipexole 0.5 mg tablet 0.5 mg PO HS #90 tabs 05/18/24 carvedilol 6.25 mg tablet (Coreg) 6.25 mg PO BID #60 tabs 10/24/24 gabapentin 100 mg capsule 100 mg PO BID #60 caps 10/24/24 bumetanide 2 mg tablet 2 mg PO BID #60 tabs 02/19/25 Results & Data (ED) Vital Signs Vital Signs - 24 hr 02/28/25 19:30 02/28/25 19:56 02/28/25 20:12 Temperature 36 C L Temperature Source Temporal Artery Scan Pulse Rate 83 82 Pulse Rate [Right Finger] 78 Pulse Rhythm [Right Finger] Pulse Strength [Right Finger] Respiratory Rate 17 20 Respiratory Effort / Characteristics Non-Labored Spontaneous Respiratory Depth Normal Respiratory Pattern Blood Pressure 147/77 H Blood Pressure [Right Arm] 161/81 H Blood Pressure Mean 100 Blood Pressure Mean [Right Arm] 107 Pulse Oximetry 97 94 Oxygen Delivery Method Room Air Room Air Sepsis Recent Fever Within 48 Hours No Sepsis New/Unexplained Change in Mental Status No Sepsis Action Taken by Nursing No Action Required 02/28/25 22:00 02/28/25 22:56 02/28/25 23:49 Temperature Temperature Source Pulse Rate 89 Pulse Rate [Right Finger] 88 90 Pulse Rhythm [Right Finger] Regular Pulse Strength [Right Finger] Normal Respiratory Rate 24 22 Respiratory Effort / Characteristics Non-Labored Spontaneous Non-Labored Spontaneous Respiratory Depth Normal Normal Respiratory Pattern Regular Blood Pressure Blood Pressure [Right Arm] 157/78 H 134/76 Blood Pressure Mean Blood Pressure Mean [Right Arm] 104 95 Pulse Oximetry 96 96 Oxygen Delivery Method Room Air Room Air Sepsis Recent Fever Within 48 Hours Sepsis New/Unexplained Change in Mental Status Sepsis Action Taken by Nursing Laboratory Data 02/28/25 19:55 02/28/25 19:55 Lab Results 02/28/25 Range/Units 19:55 WBC 8.40 (4.8-10.8) K/ul RBC 3.22 L (4.20-5.40) M/uL Hgb 9.7 L (12.0-16.0) g/dl Hct 29.9 L (37.0-47.0) % MCV 92.9 (80.0-100.0) fL MCH 30.1 (25.0-34.0) pg MCHC 32.4 (32.0-36.0) g/dL RDW Std Deviation 51.6 H (36.4-46.3) fL RDW Coeff of Rafael 15.5 H (11.5-14.5) % Plt Count 325 (130-400) K/uL MPV 11.5 (9.4-12.4) fL Immature Gran % (Auto) 1.3 % Neut % (Auto) 74.6 % Lymph % (Auto) 13.0 % [place] % (Auto) 9.5 % Eos % (Auto) 1.5 % Baso % (Auto) 0.1 % Neut # (Auto) 6.26 (1.40-6.50) K/uL Lymph # (Auto) 1.09 L (1.20-3.40) K/uL [place] # (Auto) 0.80 H (0.11-0.59) K/uL Eos # (Auto) 0.13 (0.00-0.50) K/uL Baso # (Auto) 0.01 (0.00-0.20) K/uL Immature Gran # (Auto) 0.11 (0.01-0.20) K/uL Sodium 138 (136-145) mmol/L Potassium 4.0 (3.5-5.1) mmol/L Chloride 102 (98-107) mmol/L Carbon Dioxide 30 (21-32) mmol/L Anion Gap 6 (3-11) BUN 42 H (6-23) mg/dl Creatinine 1.72 H (0.6-1.2) mg/dl Est Cr Clr Drug Dosing 24.8 ml/min eGFR 30.46 BUN/Creatinine Ratio 24.4 H (10-20) Glucose 96 (70-99(Fasting)) mg/dl Calcium 10.0 (8.6-10.3) mg/dl Magnesium 2.1 (1.7-2.4) mg/dl Total Bilirubin 0.6 (0.2-1.0) mg/dl AST 43 H (13-39) U/L ALT 80 H (7-52) U/L Alkaline Phosphatase 139 H (34-104) U/L Total Protein 7.7 (6.0-8.3) gm/dl Albumin 3.8 (3.4-5.0) gm/dl Globulin 3.9 (2.5-4.0) gm/dl Albumin/Globulin Ratio 1.0 (0.9-2) Lipase 32 (11-82) U/L Administered Medications Lactated Ringer's (Lr) 1,000 mls @ 125 mls/hr IV .Q8H ELSY Stop: 03/03/25 23:44 Last Admin: 03/01/25 00:27 Dose: 125 mls/hr Documented By: YOANDY Discontinued Medications Sodium Chloride (Nss) 1,000 mls @ 999 mls/hr IV .Q1H1M ONE Stop: 02/28/25 22:36 Last Infusion: 03/01/25 00:08 Dose: Infused Documented By: Admin: 02/28/25 21:58 Dose: 999 mls/hr Documented By: CTK Pantoprazole Sodium (Protonix) 40 mg in 10 mls @ 5 mls/min IV NOW ONE Stop: 02/28/25 23:54 Last Admin: 03/01/25 00:08 Dose: 5 mls/min Documented By: YOANDY Ioversol (Optiray 320 100ml) 90 ml IV ONCE ONE Stop: 02/28/25 21:49 Last Admin: 02/28/25 21:49 Dose: 90 ml Documented By: BEATRIS Morphine Sulfate (Morphine Sulfate 2 Mg/Ml Carp) 2 mg IV NOW STA Stop: 02/28/25 23:56 Last Admin: 03/01/25 00:08 Dose: 2 mg Documented By: YOANDY Ondansetron HCl (Ondansetron Inj 2 Mg/Ml 2 Ml Vial) 4 mg IV NOW STA Stop: 02/28/25 23:54 Last Admin: 03/01/25 00:08 Dose: 4 mg Documented By: YOANDY Imaging Data Radiologist's Impression: Abdomen/Pelvis CT 02/28/25 21:36 Exam(s): CT ABDOMEN + PELVIS With Contrast IV Amt: 90 ml optiray 320 EXAM: CT Abdomen and Pelvis With Intravenous Contrast CLINICAL HISTORY: Reason for exam: fistula repair, 1 wk, N/V, ileus, SBO?. TECHNIQUE: Axial computed tomography images of the abdomen and pelvis with intravenous contrast. CTDI is 26.21 mGy and DLP is 1095.35 mGy-cm. Automated exposure control was utilized for the study. A dose lowering technique was utilized adhering to the principles of ALARA. CONTRAST: Patient received 90 ml optiray 320 of IV contrast COMPARISON: July 17, 2024 FINDINGS: Lung bases: Small amount of atelectasis in the right lung base. ABDOMEN: Liver: Unremarkable. No mass. Gallbladder and bile ducts: Unremarkable. No calcified stones. No ductal dilation. Pancreas: Unremarkable. No mass. No ductal dilation. Spleen: Unremarkable. No splenomegaly. Adrenals: 2.5 cm left adrenal nodule, unchanged. Kidneys and ureters: Unremarkable. No solid mass. No hydronephrosis. Stomach and bowel: Mild diffuse mesenteric edema and multiple scattered gas fluid levels within nondilated fluid-filled small bowel consistent with ileus. There is an anastomotic staple line involving the mid small bowel. Trace amounts of free fluid are present in the mesentery without discrete abscess or abnormal gas collection. PELVIS: Appendix: No findings to suggest acute appendicitis. Bladder: Unremarkable. No mass. Reproductive: Unremarkable as visualized. ABDOMEN and PELVIS: Intraperitoneal space: See above. Bones/joints: Metallic artifact from right hip arthroplasty. No acute fracture or dislocation is seen. Mild to moderate degenerative changes throughout the spine with grade 1 anterolisthesis of L4 on L5 due to degenerative facet arthrosis. No acute fracture is seen. Soft tissues: Skin roberto from recent laparotomy incision. Vasculature: The abdominal aorta is mildly calcified but nondilated. Lymph nodes: Unremarkable. No enlarged lymph nodes. IMPRESSION: Recent laparotomy. Mild diffuse mesenteric edema and multiple scattered gas fluid levels within nondilated fluid-filled small bowel consistent with ileus. There is an anastomotic staple line involving the mid small bowel. Trace amounts of free fluid are present in the mesentery without discrete abscess or abnormal gas collection. Electronically signed by: Cali Jordan MD 02/28/25 23:19 PM Discharge Plan Visit Data Chief Complaint: Weakness Stated Complaint: HAD SURGERY, DIARRHEA, VOMIT, WEAK ED Provider: Nilo Soto Discharge Problem: Postoperative ileus, SONI (acute kidney injury) Patient Disposition: Home - Self-Care Condition: Fair Forms Stand Alone Forms: My [facility], Important Visit Information Prescriptions Prescriptions: No Action levothyroxine [Synthroid] 75 mcg tablet 75 mcg PO QAM Qty: 90 3RF allopurinol 100 mg tablet 100 mg PO HS Qty: 90 3RF pramipexole 0.5 mg tablet 0.5 mg PO HS Qty: 90 3RF Rx Instructions: administer 2 - 3 hours before bedtime cholecalciferol (vitamin D3) 50 mcg (2,000 unit) tablet 50 mcg PO DAILY loperamide 2 mg capsule 2 mg PO UD PRN (Reason: Diarrhea) Rx Instructions: 2-8 mg orally BID PRN pateint tapers for ostomy output PRN; gabapentin 100 mg capsule 100 mg PO BID Qty: 60 5RF carvedilol [Coreg] 6.25 mg tablet 6.25 mg PO BID Qty: 60 5RF Rx Instructions: must administer with a meal/food bumetanide 2 mg tablet 2 mg PO BID Qty: 60 2RF (DME) Wheeled Walker Misc See Rx Instructions .MEDSUPPLY Qty: 1 0RF Rx Instructions: As directed fluticasone propionate 50 mcg/actuation spray,suspension 2 spray intranasal QAM PRN (Reason: sinus congestion) Qty: 32 5RF Kelp (iodine) 150 mcg tablet 150 mcg PO QAM clindamycin HCl 300 mg capsule 600 mg PO UD PRN (Reason: dental procedure) Rx Instructions: take one hour prior to dental appointment acetaminophen 500 mg capsule 1,000 mg PO Q8H Rx Instructions: Take 3 times per day to lessen pain. lysine 500 mg Tablet 500 mg PO QAM atorvastatin 10 mg tablet 10 mg PO 3XWK Rx Instructions: MON, WED, FRI. calcium carbonate 300 mg (750 mg) Tablet,Chewable 300 mg PO BID Vitamin C 100 mg Tablet 100 mg PO DAILY epinephrine [EpiPen] 0.3 mg/0.3 mL auto-injector 0.3 mg IM DIRECTED PRN (Reason: anaphylaxis) Rx Instructions: for 2 doses oxycodone 10 mg tablet 10 mg PO Q4H PRN (Reason: pain) Referrals Referrals: Mychal Hall MD [Primary Care Provider] -
--- NOTE | 2025-02-28 23:20 | CT Scan Report ---
Exam(s): CT ABDOMEN + PELVIS With Contrast IV Amt: 90 ml optiray 320 EXAM: CT Abdomen and Pelvis With Intravenous Contrast CLINICAL HISTORY: Reason for exam: fistula repair, 1 wk, N/V, ileus, SBO?. TECHNIQUE: Axial computed tomography images of the abdomen and pelvis with intravenous contrast. CTDI is 26.21 mGy and DLP is 1095.35 mGy-cm. Automated exposure control was utilized for the study. A dose lowering technique was utilized adhering to the principles of ALARA. CONTRAST: Patient received 90 ml optiray 320 of IV contrast COMPARISON: July 17, 2024 FINDINGS: Lung bases: Small amount of atelectasis in the right lung base. ABDOMEN: Liver: Unremarkable. No mass. Gallbladder and bile ducts: Unremarkable. No calcified stones. No ductal dilation. Pancreas: Unremarkable. No mass. No ductal dilation. Spleen: Unremarkable. No splenomegaly. Adrenals: 2.5 cm left adrenal nodule, unchanged. Kidneys and ureters: Unremarkable. No solid mass. No hydronephrosis. Stomach and bowel: Mild diffuse mesenteric edema and multiple scattered gas fluid levels within nondilated fluid-filled small bowel consistent with ileus. There is an anastomotic staple line involving the mid small bowel. Trace amounts of free fluid are present in the mesentery without discrete abscess or abnormal gas collection. PELVIS: Appendix: No findings to suggest acute appendicitis. Bladder: Unremarkable. No mass. Reproductive: Unremarkable as visualized. ABDOMEN and PELVIS: Intraperitoneal space: See above. Bones/joints: Metallic artifact from right hip arthroplasty. No acute fracture or dislocation is seen. Mild to moderate degenerative changes throughout the spine with grade 1 anterolisthesis of L4 on L5 due to degenerative facet arthrosis. No acute fracture is seen. Soft tissues: Skin roberto from recent laparotomy incision. Vasculature: The abdominal aorta is mildly calcified but nondilated. Lymph nodes: Unremarkable. No enlarged lymph nodes. IMPRESSION: Recent laparotomy. Mild diffuse mesenteric edema and multiple scattered gas fluid levels within nondilated fluid-filled small bowel consistent with ileus. There is an anastomotic staple line involving the mid small bowel. Trace amounts of free fluid are present in the mesentery without discrete abscess or abnormal gas collection. Electronically signed by: Cali Jordan MD 02/28/25 23:19 PM
--- NOTE | 2025-02-28 23:36 | History & Physical Report ---
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 Patient presented due to diarrhea, nausea, vomiting, weakness, and poor appetite. She was found to have a mild ileus on CT scan and is being admitted for weakness which she feels unsafe to go home at this point. #mild ileus/vomiting - S/p intestinal fistula repair 03/24. AP CT revealed mild ileus. Patient with significant nausea and vomiting unable to tolerated PO intake. - bowel rest - hold nonessential PO medications - Clear liquids, advance diet as tolerated - Zofran prn - scheduled pantoprazole BID IV - Was on 1 Mg p.o. Tylenol and 10 Mg oxycodone every 6 hours at home; with bowel rest, transaminitis, and worsening kidney function will control pain with IV morphine as needed #mild dehydration - 2/2 vomiting and diarrhea. Cr increase 1.25 to 1.72, BUN 42. Mucous membranes dry. - UA ordered - received 1L NSS in ED; continue fluid resuscitation with LR at 125 mL/hr - Trend BMP - hold Bumex #weakness - 2/2 above. laboratories reveal mild dehydration, electrolytes stable. Hx of anemia - H&H at baseline. - Anticipate improvement treatment above - ordered magnesium and TSH levels #transaminitis - chronic, however acutely worsening. Suspect 2/2 high-dose acetaminophen recent abdominal surgery. AP CT reveals no abnormalities of the liver. - acetaminophen level ordered - Will defer further Tylenol use - trend CMP #diastolic congestive heart failure stable, no acute exacerbation. Most recent echo revealed EF 65 to 70%. - Holding Bumex with dehydration as above - Continue carvedilol #HLD stable - Holding atorvastatin with bowel rest #Gout stable - holding allopurinol with bowel rest #Neuropathy/RLS stable - Continue with gabapentin and pramipexole as per patient request #Hypothyroidism stable - Holding levothyroxine with bowel rest VTE ppx: Heparin shortness of Since they have - Recent history of DVT and PE Dispo: med surg obs Admission and Anticipated Discharge Date Admission Date: 02/28/25 History of Present Illness Chief Complaint: weakness Primary Care Provider: Mychal Hall MD Patient is a 74-year-old female with 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 Patient presented due to diarrhea, nausea, vomiting, weakness, and poor appetite. She was found to have a mild ileus on CT scan and is being admitted for weakness which she feels unsafe to go home at this point. Patient seen at bedside. She stated she had her fistula repair last Wednesday., She had been on TPN for several months which was discontinued on Wednesday. She was discharged from the hospital Wednesday after her significant diarrhea during her inpatient stay resolved. It is patient stated after she returned home she started having diarrhea again which later stopped. Yesterday she developed nausea and vomiting. Patient has developed weakness, fatigue, and poor appetite since she has been home. She feels unsafe to return home at this point with her significant weakness. Her laboratories do appear as though she is mildly dehydrated with creatinine and BUN increased. Patient stated for her abdominal pain she has been taking 1 g of Tylenol and 10 mg of oxycodone every 6 hours, with mild transaminitis in ED. Patient states she did have some lightheadedness and nausea with vomiting which is why she came in this evening. She otherwise denies chest pain, shortness of breath, abdominal pain has been well-controlled on her regimen, denies fevers. She denies any nicotine or alcohol use. She stated she does have a history of recent DVT and PE in June while she was hospitalized which was treated with heparin and then Eliquis. She discontinued Eliquis in preparation of her recent surgery. She is due for her evening medications including gabapentin and pramipexole; will hold Bumex with hydration. She wishes to be full code. Allergies Allergy/AdvReac Type Severity Reaction Status Date / Time Penicillins Allergy Severe Anaphylaxis Verified 02/28/25 21:50 ciprofloxacin AdvReac Intermediate myalgia Verified 02/28/25 21:50 [id number] Reductase AdvReac Intermediate muscle Verified 02/28/25 21:50 Inhibitor aches Home Medications Medication Instructions Recorded Confirmed Type Wheeled Walker #1 ea 10/13/22 01/09/25 Rx iodine 150 mcg tablet (Kelp 150 mcg PO QAM 10/16/22 02/28/25 History (iodine)) levothyroxine 75 mcg tablet 75 mcg PO QAM #90 tabs 04/19/24 02/28/25 Rx (Synthroid) acetaminophen 500 mg capsule 1,000 mg PO Q8H 04/26/24 02/28/25 History clindamycin HCl 300 mg capsule 600 mg PO UD PRN dental procedure 04/26/24 02/28/25 History lysine 500 mg tablet 500 mg PO QAM Cold Sores 04/26/24 02/28/25 History fluticasone propionate 50 2 spray intranasal QAM PRN sinus 05/16/24 02/28/25 Rx mcg/actuation nasal congestion #32 grams spray,suspension allopurinol 100 mg tablet 100 mg PO HS #90 tabs 05/17/24 02/28/25 Rx pramipexole 0.5 mg tablet 0.5 mg PO HS #90 tabs 05/18/24 02/28/25 Rx cholecalciferol (vitamin D3) 50 50 mcg PO DAILY 09/29/24 02/28/25 History mcg (2,000 unit) tablet loperamide 2 mg capsule 2 mg PO UD PRN Diarrhea 09/29/24 02/28/25 History carvedilol 6.25 mg tablet (Coreg) 6.25 mg PO BID #60 tabs 10/24/24 02/28/25 Rx gabapentin 100 mg capsule 100 mg PO BID #60 caps 10/24/24 02/28/25 Rx atorvastatin 10 mg tablet 10 mg PO 3XWK 01/16/25 02/28/25 History bumetanide 2 mg tablet 2 mg PO BID #60 tabs 02/19/25 02/28/25 Rx ascorbic acid (vitamin C) 100 mg 100 mg PO DAILY 02/28/25 02/28/25 History tablet (Vitamin C) calcium carbonate 300 mg PO BID 02/28/25 02/28/25 History epinephrine 0.3 mg/0.3 mL 0.3 mg IM DIRECTED PRN 02/28/25 02/28/25 History injection, auto-injector (EpiPen) anaphylaxis oxycodone 10 mg tablet 10 mg PO Q4H PRN pain 02/28/25 02/28/25 History Past Med/Surg History Problem List (Updated 03/01/25 @ 00:34 by Nilo Soto MD) SONI (acute kidney injury) (Acute) Postoperative ileus (Acute) Transaminitis Weakness Mild dehydration Nausea and vomiting Ileus Cervical stenosis (uterine cervix) Thickened endometrium Abnormal finding on imaging Malnutrition Pulmonary emboli Intra-abdominal abscess Enterocutaneous fistula Septic shock due to Pseudomonas species Acute on chronic diastolic (congestive) heart failure Acute kidney injury superimposed on CKD Status post exploratory laparotomy Perforated gastric ulcer Hyperkalemia SONI (acute kidney injury) Septic shock Perforated bowel (Acute) Free intraperitoneal air Uterine mass Adrenal mass 1 cm to 4 cm in diameter Arthrofibrosis of left hip joint Abnormal CT scan Hip arthritis Colonic mass Abnormal colonoscopy Positive colorectal cancer screening using Cologuard test Positive colorectal cancer screening using Cologuard test Hyperparathyroidism UTI (urinary tract infection) Neuropathy Hyponatremia Anemia S/P total right hip arthroplasty Impaired glucose metabolism Grade II diastolic dysfunction Periodic limb movement disorder (PLMD) Chronic kidney disease (CKD) stage G3a/A3, moderately decreased glomerular filtration rate (GFR) between 45-59 mL/min/1.73 square meter and albuminuria creatinine ratio greater than 300 mg/g Hyperlipidemia Lumbar stenosis with neurogenic claudication Severe at L4-5 Gout Hypothyroidism HTN (hypertension) Medical History Acute on chronic diastolic (congestive) heart failure hx, ~05/2024, "occurred when she had a perforated gastric ulcer" Adrenal mass 1 cm to 4 cm in diameter hx 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 has had epidural steroid injections and physical therapy Hyperparathyroidism pt unsure of details Hypothyroidism Hyperlipidemia Hypertension Hx of gout never had symptoms, had elevated uric acid levels. Hx of basal cell carcinoma Chronic kidney disease, stage 3 plans to see [facility]phrology Hx of migraines prior to menopause Surgical History H/O exploratory laparotomy (06/21/24) Exploratory Laparotomy, Gastric Washout, Repair of Perforated Gastric Ulcer(Not Applicable) - Flakito Rizzo, DO, FACS S/P epidural steroid injection History of right hip replacement Hx of laparoscopy for tx endometriosis Hx of colonoscopy S/P Mohs surgery for basal cell carcinoma History of section Family History Brother Myocardial infarction Hypertension Smoker Grandmother (Maternal) Diabetes Father Hypertension Cancer bladder Stroke Myocardial infarction Mother Hypertension Asthma Congestive heart failure Myocardial infarction Sister Hypertension Eczema Denies family history of Ovarian cancer Prostate cancer Breast cancer Colorectal cancer Social History Smoking Status: Never smoker Second Hand Exposure: Yes (hx growing up); Do You Dip or Chew Tobacco: No; Hx Alcohol Use: No Hx Substance Use: No Preferred Language: Greenlandic Communication Ability: Effective Visual Impairment: No Limitations Hearing Ability: Normal Fitness And Wellness Instructor Required: No Beliefs That Will Affect Care: None marital status: / Current Living Situation: Alone current occupational status: employed 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 Non-toxic appearing. HEENT- EOMI, mucous membranes dry. Hearing grossly intact. Heart-normal S1 and S2. No murmurs, rubs or gallops. Lungs-clear bilaterally, no respiratory distress, no accessory muscle use. Abdomen-normal bowel sounds and soft. No ascites noted. Non-tender. Surgical site healing well without surrounding erythema. Extremities- no clubbing, cyanosis, or edema. Rheumatologic-normal range of motion. Psychiatric-normal affect. Results & Data Results & Data Vital Signs (Past 12 Hours) Vital Signs Temp Pulse Pulse Resp BP BP Pulse Ox 02/28/25 22:56 90 22 134/76 96 02/28/25 22:00 88 24 157/78 H 96 02/28/25 20:12 78 20 161/81 H 94 02/28/25 19:56 82 02/28/25 19:30 36 C L 83 17 147/77 H 97 O2 Del Method 02/28/25 22:56 Room Air 02/28/25 22:00 Room Air 02/28/25 20:12 Room Air 02/28/25 19:56 02/28/25 19:30 Room Air Laboratory Results reviwed CBC, CMP, lipase Diagnostic Findings reviewed apct Medications Administered ed - 1L NSS bolus admission - Zofran 4mg IV, Protonix 40 Mg IV Mg IV, LR at 125 mL/hr ECG Additional Comments: ordered Code Status & VTE Plan Code Status full code VTE Prophylaxis Plan VTE Prophylaxis will be ordered: Yes Supervising Physician Co-Signing Physician Notes Patient seen and examined, chart reviewed, case discussed with MARY Carreon and I agree with the assessment and plan as document above. In brief, patient is a 74-year-old female with recent surgical repair of an intra-abdominal fistula secondary to gastric ulcer presenting with nausea, vomiting, weakness and p.o. intolerance. Patient found to have mild ileus on imaging on physical exam patient is afebrile, hemodynamically stable + S1, S2, regular, no murmur/rub/gallops Lungs CTA Abdomen soft, nontender, nondistended, mildly diminished bowel sounds Extremities warm, well-perfused Labs and images reviewed Assessment/[id number] female with history of recent repair of intestinal fistula on 03/24/2025 presenting with mild ileusabdominal pain, nausea, vomiting and p.o. intolerance Admit to medical Maintain n.p.o. status IV fluids Zofran as needed Continue Protonix -Remainder as above PG Care Time/CCT Total # of Minutes Spent Total Time Spent with Patient: Total time spent is greater than 50% in coordination of care (as documented) at patient's floor/unit and/or counseling patient: Coding Level of Care Code 36943 INT INP/OBS CARE 3/75MIN Diagnoses Ileus K56.7 Nausea and vomiting R11.2 Mild dehydration E86.0 Weakness R53.1 Transaminitis R74.01
[2025-03-01] MEDS: PANTOprazole 40 MG/10 ML SYR IV ONE (00:08)
[2025-03-01] MEDS: MoRPHine SULFATE 2 MG/ML CARP IV STA (00:08)
[2025-03-01] MEDS: ONDANSETRON INJ 2 MG/ML 2 ML VIAL IV STA ×2 (00:08→02:36)
[2025-03-01 00:26] LABS: Magnesium 2.1 mg/dl (1.7-2.4)
[2025-03-01] MEDS: LACTATED RINGER'S 1,000 ML IV SCH (00:27)
[2025-03-01 00:57] LABS: Thyroid Stimulating Hormone 7.332 uIu/ml (0.300-4.500)
[2025-03-01 01:03] LABS: Appearance Urine Clear (Clear); Bacteria Urine Automated 4+ (None Seen); Bilirubin Urine Negative (Negative); Blood Urine Negative (Negative); Cast Urine Automated 0-2 /lpf (0-2); Color Urine Yellow; Epithelial Cell Urine Auto 0-2 /hpf (0-2); Glucose Urine UA Negative (Negative); Ketones Urine Negative (Negative); Leukocyte Esterase Urine 1+ (Negative); Nitrite Urine Negative (Negative); Protein Urine Trace (Negative); RBC Urine Automated 0-2 /hpf (0-2); Urobilinogen Urine Negative (Negative); pH Urine 6.5 (4.5-7.5)
[2025-03-01 01:34] LABS: T4 Free Thyroxine 1.13 ng/dl (0.61-1.60)
[2025-03-01] MEDS ORDERED: NALOXONE HCL 0.4 MG/1 ML VIAL/CARP IV PRN (02:30)
[2025-03-01] MEDS ORDERED: MoRPHine SULFATE 2 MG/ML CARP IV PRN (02:30)
--- NOTE | 2025-03-01 03:02 | Communication Note ---
Date of Service: March 01, 2025 UA returned appearing infectious with 1+ LE, 11-20 WBC, and 4+ bacteria, no contaminate. Urine cultures sent. Patient has history of pansensitive E coli. Will start on Rocephin. Likely contributing to weakness.
[2025-03-01] MEDS: GABAPENTIN 100 MG CAP PO SCH (03:09)
[2025-03-01] MEDS: PRAMIPEXOLE DIHYDROCHLO 0.5 MG TAB PO SCH (03:09)
[2025-03-01] MEDS: cefTRIAXone SODIUM 1,000 MG/50 ML BAG IV SCH (04:59)
[2025-03-01] MEDS: MoRPHine SULFATE 4 MG/ML 1 ML CARP\\VIAL IV PRN (07:30)
[2025-03-01 08:00] LABS: Eosinophils # (auto) 0.11 K/uL (0.00-0.50); Eosinophils % (auto) 1.6 %; Hematocrit (blood only) 24.4 % (37.0-47.0); Immature Granulocytes # (auto) 0.05 K/uL (0.01-0.20); Immature Granulocytes % (auto) 0.7 %; Lymphocytes # (auto) 1.09 K/uL (1.20-3.40); Lymphocytes % (auto) 15.4 %; Mean Corpuscular Hemoglobin 30.7 pg (25.0-34.0); Mean Corpuscular Hgb Conc 32.8 g/dL (32.0-36.0); Mean Corpuscular Volume 93.5 fL (80.0-100.0); Mean Platelet Volume 10.9 fL (9.4-12.4); Monocytes # (auto) 0.64 K/uL (0.11-0.59); Neutrophils % (auto) 73.3 %; Platelet Count 254 K/uL (130-400); RDW Coefficient of Variation 15.5 % (11.5-14.5); RDW Standard Deviation 52.1 fL (36.4-46.3); Red Blood Count 2.61 M/uL (4.20-5.40); White Blood Count 7.09 K/ul (4.8-10.8)
[2025-03-01] MEDS: PANTOprazole 40 MG/10 ML SYR IV SCH (08:04)
[2025-03-01] MEDS: carvediloL 6.25 MG TAB PO SCH (08:05)
[2025-03-01] MEDS: HEPARIN SOD 5,000 UNIT/0.5 ML VIAL SQ SCH (08:07)
[2025-03-01 08:28] LABS: Albumin Globulin Ratio 0.9 (0.9-2); BUN Creatinine Ratio 26.9 (10-20); Bilirubin,Total 0.4 mg/dl (0.2-1.0); Calcium 9.1 mg/dl (8.6-10.3); Creatinine Clr Calc Pharmacy 32.7 ml/min; Globulin 3.2 gm/dl (2.5-4.0); Potassium 4.1 mmol/L (3.5-5.1); Total Protein 6.2 gm/dl (6.0-8.3)
--- NOTE | 2025-03-01 15:28 | Hospitalist Progress Note ---
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 Patient presented due to diarrhea, nausea, vomiting, weakness, and poor appetite. She was found to have a mild ileus on CT scan and is being admitted for weakness which she feels unsafe to go home at this point. #mild ileus/vomiting - S/p intestinal fistula repair 03/24. AP CT revealed mild ileus. Patient with significant nausea and vomiting unable to tolerated PO intake. - Continue clear liquid diet Patient is feeling better - Clear liquids, advance diet as tolerated - Zofran prn - scheduled pantoprazole BID IV - Was on 1 Mg p.o. Tylenol and 10 Mg oxycodone every 6 hours at home; with bowel rest, transaminitis, and worsening kidney function discontinue IV morphine #mild dehydration - 2/2 vomiting and diarrhea. Cr increase 1.25 to 1.72, BUN 42. Mucous membranes dry. - UA ordered - received 1L NSS in ED; patient is tolerating clear liquid diet. Discontinue IV fluids - Trend BMP - Continue to hold Bumex #weakness - 2/2 above. laboratories reveal mild dehydration, electrolytes stable. Hx of anemia - H&H at baseline. - Anticipate improvement treatment above - ordered magnesium and TSH levels #transaminitis - chronic, however acutely worsening. Suspect 2/2 high-dose acetaminophen recent abdominal surgery. AP CT reveals no abnormalities of the liver. - acetaminophen level ordered - Will defer further Tylenol use - trend CMP #diastolic congestive heart failure stable, no acute exacerbation. Most recent echo revealed EF 65 to 70%. - Holding Bumex with dehydration as above - Continue carvedilol Discontinue IV fluid #HLD stable - Holding atorvastatin with bowel rest #Gout stable - holding allopurinol with bowel rest #Neuropathy/RLS stable - Continue with gabapentin and pramipexole as per patient request #Hypothyroidism stable - Holding levothyroxine with bowel rest VTE ppx: Heparin Since they have - Recent history of DVT and PE Dispo: med surg obs Admission and Anticipated Discharge Date Admission Date: March 01, 2025 Subjective Patient feels better overall. Denies chest pain or shortness of breath.. Patient says that she feels better today. Less nausea, no vomiting. No diarrhea. Patient has not had a bowel movement yet. Review of Systems Review of Systems: All systems reviewed & are unremarkable except as noted in Subjective Physical Exam Physical Exam: General: Awake, conversant Heart: S1, S2/regular rate and rhythm, no murmur rubs or gallops Lungs: Clear to auscultation bilaterally. Normal effort Abdomen: Soft/nontender/nondistended. No hepatosplenomegaly. Positive bowel sounds. Dressings on mid abdomen Extremities: No clubbing/cyanosis. No edema Behavior: Appropriate, cooperative Results & Data Results & Data Vital Signs (Past 12 Hours) Vital Signs Temp Pulse Resp BP Pulse Ox O2 Del Method 03/01/25 07:35 Room Air 03/01/25 07:05 36.5 C 76 16 117/70 95 Room Air Laboratory Results Abnormal lab results 02/28/25 03/01/25 03/01/25 Range/Units 19:55 00:27 00:40 RBC 3.22 L (4.20-5.40) M/uL Hgb 9.7 L (12.0-16.0) g/dl Hct 29.9 L (37.0-47.0) % RDW Std Deviation 51.6 H (36.4-46.3) fL RDW Coeff of Rafael 15.5 H (11.5-14.5) % Lymph # (Auto) 1.09 L (1.20-3.40) K/uL [place] # (Auto) 0.80 H (0.11-0.59) K/uL BUN 42 H (6-23) mg/dl Creatinine 1.72 H (0.6-1.2) mg/dl BUN/Creatinine Ratio 24.4 H (10-20) AST 43 H (13-39) U/L ALT 80 H (7-52) U/L Alkaline Phosphatase 139 H (34-104) U/L Albumin (3.4-5.0) gm/dl TSH 7.332 H (0.300-4.500) uIu/ml Ur Specific [place] 1.040 H (1.000-1.030) Urine Protein Trace H (Negative) Ur Leukocyte Esterase 1+ H (Negative) Urine WBC (Auto) 11-20 H (0-5) /hpf Urine Bacteria (Auto) 4+ H (None Seen) Acetaminophen 4 L (10-30) ug/ml 03/01/25 Range/Units 07:24 RBC 2.61 L (4.20-5.40) M/uL Hgb 8.0 L (12.0-16.0) g/dl Hct 24.4 L (37.0-47.0) % RDW Std Deviation 52.1 H (36.4-46.3) fL RDW Coeff of Rafael 15.5 H (11.5-14.5) % Lymph # (Auto) 1.09 L (1.20-3.40) K/uL [place] # (Auto) 0.64 H (0.11-0.59) K/uL BUN 35 H (6-23) mg/dl Creatinine 1.30 H D (0.6-1.2) mg/dl BUN/Creatinine Ratio 26.9 H (10-20) AST (13-39) U/L ALT 56 H (7-52) U/L Alkaline Phosphatase 109 H (34-104) U/L Albumin 3.0 L (3.4-5.0) gm/dl TSH (0.300-4.500) uIu/ml Ur Specific [place] (1.000-1.030) Urine Protein (Negative) Ur Leukocyte Esterase (Negative) Urine WBC (Auto) (0-5) /hpf Urine Bacteria (Auto) (None Seen) Acetaminophen (10-30) ug/ml PG Care Time/CCT Total # of Minutes Spent Total Time Spent with Patient: Total time spent is greater than 50% in coordination of care (as documented) at patient's floor/unit and/or counseling patient: Coding Level of Care Code 20023 SUB INP/OBS CARE 2/35MIN Diagnoses Ileus K56.7 Nausea and vomiting R11.2 Mild dehydration E86.0 Weakness R53.1 Transaminitis R74.01
[2025-03-01] MEDS: ACETAMINOPHEN 1,000 MG/100 ML VIAL IV PRN (21:45)
[2025-03-02] MEDS: MELATONIN 3 MG TAB PO PRN (02:30)
[2025-03-02 11:18] LABS: BUN Creatinine Ratio 17.2 (10-20); Calcium 9.1 mg/dl (8.6-10.3); Creatinine Clr Calc Pharmacy 34.8 ml/min; Potassium 3.8 mmol/L (3.5-5.1)
[2025-03-02] MEDS: oxyCODONE HCL IR 5 MG TAB (IMMEDIATE RELEASE) PO PRN ×2 (13:47→18:32)
--- NOTE | 2025-03-02 16:16 | Hospitalist Progress Note ---
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 Patient presented due to diarrhea, nausea, vomiting, weakness, and poor appetite. She was found to have a mild ileus on CT scan and is being admitted for weakness which she feels unsafe to go home at this point. #mild ileus/vomiting - S/p intestinal fistula repair 03/24. AP CT revealed mild ileus. Patient with significant nausea and vomiting unable to tolerated PO intake. Patient had a bowel movement today Advance diet - Zofran prn - scheduled pantoprazole BID IV - Was on 1 Mg p.o. Tylenol and 10 Mg oxycodone every 6 hours at home; with bowel rest, transaminitis, and worsening kidney function IV morphine discontinued Resume p.o. oxycodone at 5 mg since patient insisted. Ordered laxatives Encourage ambulation #mild dehydration - 2/2 vomiting and diarrhea. Cr increase 1.25 to 1.72, BUN 42. Mucous membranes dry. - UA ordered Hydrated Renal function improved - hold Bumex #weakness - 2/2 above. laboratories reveal mild dehydration, electrolytes stable. Hx of anemia - H&H at baseline. - Anticipate improvement treatment above PT/OT recommend rehab Case management working on it. #transaminitis - chronic, however acutely worsening. Suspect 2/2 high-dose acetaminophen recent abdominal surgery. AP CT reveals no abnormalities of the liver. - Will defer further Tylenol use - CPK trended down #diastolic congestive heart failure stable, no acute exacerbation. Most recent echo revealed EF 65 to 70%. - Holding Bumex with dehydration as above - Continue carvedilol #HLD stable - Holding atorvastatin with bowel rest #Gout stable - holding allopurinol with bowel rest #Neuropathy/RLS stable - Continue with gabapentin and pramipexole as per patient request #Hypothyroidism stable - Holding levothyroxine with bowel rest VTE ppx: Heparin shortness of Since they have - Recent history of DVT and PE Dispo: med surg obs Admission and Anticipated Discharge Date Admission Date: March 01, 2025 Subjective Patient had a bowel movement today. She would like to advance her diet. She is complaining of pain from her recent surgery and also her chronic arthritis pain. Explained to her that narcotics will lead to "lazy gut". Review of Systems Review of Systems: All systems reviewed & are unremarkable except as noted in Subjective Physical Exam Physical Exam: General: Awake, conversant Heart: S1, S2/regular rate and rhythm, no murmur rubs or gallops Lungs: Clear to auscultation bilaterally. Normal effort Abdomen: Soft/nontender/nondistended. No hepatosplenomegaly. Positive bowel sounds. Dressings on mid abdomen Extremities: No clubbing/cyanosis. No edema Behavior: Appropriate, cooperative Results & Data Results & Data Vital Signs (Past 12 Hours) Vital Signs Temp Pulse Resp BP Pulse Ox O2 Del Method 03/02/25 08:38 37 C 78 16 125/57 L 92 Room Air PG Care Time/CCT Total # of Minutes Spent Total Time Spent with Patient: Total time spent is greater than 50% in coordination of care (as documented) at patient's floor/unit and/or counseling patient: Coding Level of Care Code 27270 SUB INP/OBS CARE 2/35MIN Diagnoses Ileus K56.7 Nausea and vomiting R11.2 Mild dehydration E86.0 Weakness R53.1 Transaminitis R74.01
[2025-03-02] MEDS: DOCUSATE SODIUM 100 MG CAP PO SCH (22:23)
--- NOTE | 2025-03-03 04:22 | Electrocardiogram Report ---
Test Reason : Blood Pressure : */* mmHG Vent. Rate : 80 BPM Atrial Rate : 80 BPM P-R Int : 154 ms QRS Dur : 88 ms QT Int : 384 ms P-R-T Axes : 28 -26 27 degrees QTcB Int : 442 ms Normal sinus rhythm Minimal voltage criteria for LVH, may be normal variant ( R in aVL ) Incomplete right bundle branch block When compared with ECG of 22-Jun-2024 07:44, Minimal criteria for Anterior infarct are no longer Present Confirmed by Hussain Acuña ([id number]) on 03/03/2025 4:22:00 AM Referred By: REFERRED SELF Confirmed By: Hussain Acuña
[2025-03-03] MEDS: ONDANSETRON INJ 2 MG/ML 2 ML VIAL IV PRN (06:30)
[2025-03-03 07:40] LABS: BUN Creatinine Ratio 11.9 (10-20); Calcium 9.1 mg/dl (8.6-10.3); Potassium 3.5 mmol/L (3.5-5.1)
--- NOTE | 2025-03-03 12:46 | Hospitalist Progress Note ---
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 Patient presented due to diarrhea, nausea, vomiting, weakness, and poor appetite. She was found to have a mild ileus on CT scan and is being admitted for weakness which she feels unsafe to go home at this point. #mild ileus/vomiting - S/p intestinal fistula repair 03/24. AP CT revealed mild ileus. Patient with significant nausea and vomiting unable to tolerated PO intake. Patient had a bowel movement today Seems to have resolved Advance diet further Continue to ambulate - Zofran prn - scheduled pantoprazole BID IV - Was on 1 Mg p.o. Tylenol and 10 Mg oxycodone every 6 hours at home; with bowel rest, transaminitis, and worsening kidney function IV morphine discontinued Resumed p.o. oxycodone at 5 mg since patient insisted. Ordered laxatives Addressed her pain management concerns today. No NSAIDs due to recent gastric ulcer. Narcotics can make ileus worse. Transaminitis noted due to Tylenol use #mild dehydration - 2/2 vomiting and diarrhea. Cr increase 1.25 to 1.72, BUN 42. Mucous membranes dry. - UA ordered Hydrated Renal function improved - Resume Bumex #weakness - 2/2 above. laboratories reveal mild dehydration, electrolytes stable. Hx of anemia - H&H at baseline. - Anticipate improvement treatment above PT/OT recommend rehab Case management working on it. #transaminitis - chronic, however acutely worsening. Suspect 2/2 high-dose acetaminophen recent abdominal surgery. AP CT reveals no abnormalities of the liver. - Avoid Tylenol. - CPK trended down #diastolic congestive heart failure stable, no acute exacerbation. Most recent echo revealed EF 65 to 70%. - Now the dehydration resolved, resume Bumex - Continue carvedilol #HLD stable - Holding atorvastatin with bowel rest #Gout stable - holding allopurinol with bowel rest #Neuropathy/RLS stable - Continue with gabapentin and pramipexole as per patient request #Hypothyroidism stable - Holding levothyroxine with bowel rest VTE ppx: Heparin Dispo: med surg obs Admission and Anticipated Discharge Date Admission Date: March 01, 2025 Subjective Patient feels well. Had 2 bowel movements between yesterday and today. She has some concerns about pain management. Review of Systems Review of Systems: All systems reviewed & are unremarkable except as noted in Subjective Physical Exam Physical Exam: General: Awake, conversant Heart: S1, S2/regular rate and rhythm, no murmur rubs or gallops Lungs: Clear to auscultation bilaterally. Normal effort Abdomen: Soft/nontender/nondistended. No hepatosplenomegaly. Positive bowel sounds. Dressings on mid abdomen Extremities: No clubbing/cyanosis. No edema Behavior: Appropriate, cooperative Results & Data Results & Data Vital Signs (Past 12 Hours) Vital Signs Temp Pulse Resp BP Pulse Ox O2 Del Method 03/03/25 11:57 36.3 C L 71 16 124/72 94 Room Air 03/03/25 07:53 37.1 C 67 16 135/67 95 Room Air Laboratory Results Abnormal lab results 03/03/25 Range/Units 07:02 Chloride 108 H (98-107) mmol/L PG Care Time/CCT Total # of Minutes Spent Total Time Spent with Patient: Total time spent is greater than 50% in coordination of care (as documented) at patient's floor/unit and/or counseling patient: Coding Level of Care Code 33871 SUB INP/OBS CARE 2/35MIN Diagnoses Ileus K56.7 Nausea and vomiting R11.2 Mild dehydration E86.0 Weakness R53.1 Transaminitis R74.01
[2025-03-03] MEDS: oxyCODONE HCL IR 5 MG TAB (IMMEDIATE RELEASE) PO PRN (13:10)
[2025-03-03] MEDS: LIDOCAINE 5% 1 PATCH TD PRN (18:03)
[2025-03-03] MEDS: BUMETANIDE 1 MG TAB PO SCH (20:38)
[2025-03-03] MEDS: GABAPENTIN 100 MG CAP PO SCH (20:38)
[2025-03-04 07:48] LABS: BUN Creatinine Ratio 10.1 (10-20); Calcium 9.7 mg/dl (8.6-10.3); Creatinine Clr Calc Pharmacy 42.9 ml/min; Potassium 3.2 mmol/L (3.5-5.1)
[2025-03-04] MEDS: POTASSIUM CHLORIDE CRTAB 20 MEQ TABCR PO STA (08:52)
[2025-03-04 15:24] VITALS: RESP 16
--- NOTE | 2025-03-04 18:09 | Hospitalist Progress Note ---
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 Patient presented due to diarrhea, nausea, vomiting, weakness, and poor appetite. She was found to have a mild ileus on CT scan and is being admitted for weakness which she feels unsafe to go home at this point. #mild ileus/vomiting - S/p intestinal fistula repair 03/24. AP CT revealed mild ileus. Patient with significant nausea and vomiting unable to tolerated PO intake. Patient had a bowel movement today Seems to have resolved Tolerating solid diet Continue to ambulate - Zofran prn - scheduled pantoprazole BID IV - Was on 1 Mg p.o. Tylenol and 10 Mg oxycodone every 6 hours at home; with bowel rest, transaminitis, and worsening kidney function IV morphine discontinued Resumed p.o. oxycodone at 5 mg since patient insisted. Ordered laxatives Addressed her pain management concerns today. No NSAIDs due to recent gastric ulcer. Narcotics can make ileus worse. Transaminitis noted due to Tylenol use #mild dehydration - 2/2 vomiting and diarrhea. Cr increase 1.25 to 1.72, BUN 42. Mucous membranes dry. - UA ordered Hydrated Renal function improved - Resume Bumex #weakness - 2/2 above. laboratories reveal mild dehydration, electrolytes stable. Hx of anemia - H&H at baseline. - Anticipate improvement treatment above PT/OT recommend rehab Case management working on it. #transaminitis - chronic, however acutely worsening. Suspect 2/2 high-dose acetaminophen recent abdominal surgery. AP CT reveals no abnormalities of the liver. - Avoid Tylenol. - CPK trended down #diastolic congestive heart failure stable, no acute exacerbation. Most recent echo revealed EF 65 to 70%. - Now the dehydration resolved, resume Bumex - Continue carvedilol #HLD stable - Holding atorvastatin with bowel rest #Gout stable - holding allopurinol with bowel rest #Neuropathy/RLS stable - Continue with gabapentin and pramipexole as per patient request Patient requested that her gabapentin dose be increased. Increased from twice daily to 3 times daily dosing. #Hypothyroidism stable - Holding levothyroxine with bowel rest VTE ppx: Heparin Dispo: med surg obs Admission and Anticipated Discharge Date Admission Date: March 01, 2025 Subjective Patient feels well overall. Denies chest pain or shortness of breath. Her pain is fairly controlled. She is having bowel movements and is eating solid meals. Review of Systems Review of Systems: All systems reviewed & are unremarkable except as noted in Subjective Physical Exam Physical Exam: General: Awake, conversant Heart: S1, S2/regular rate and rhythm, no murmur rubs or gallops Lungs: Clear to auscultation bilaterally. Normal effort Abdomen: Soft/nontender/nondistended. No hepatosplenomegaly. Positive bowel sounds. Dressings on mid abdomen Extremities: No clubbing/cyanosis. No edema Behavior: Appropriate, cooperative Results & Data Results & Data Vital Signs (Past 12 Hours) Vital Signs Temp Pulse Resp BP Pulse Ox O2 Del Method 03/04/25 15:23 36.4 C L 77 16 163/76 H 95 Room Air 03/04/25 07:30 36.7 C 79 18 128/77 95 Room Air Laboratory Results Abnormal lab results 03/04/25 Range/Units 06:50 Potassium 3.2 L (3.5-5.1) mmol/L PG Care Time/CCT Total # of Minutes Spent Total Time Spent with Patient: Total time spent is greater than 50% in coordination of care (as documented) at patient's floor/unit and/or counseling patient: Coding Level of Care Code 54056 SUB INP/OBS CARE 2/35MIN Diagnoses Ileus K56.7 Nausea and vomiting R11.2 Mild dehydration E86.0 Weakness R53.1 Transaminitis R74.01
[2025-03-05 07:44] LABS: Creatinine Clr Calc Pharmacy 38.9 ml/min; Potassium 3.3 mmol/L (3.5-5.1)
[2025-03-05] MEDS: POLYETHYLENE (MIRALAX) 17 GM PACK PO PRN (08:18)
[2025-03-05] MEDS: POTASSIUM CHLORIDE 10 MEQ TABCR PO SCH (09:45)
[2025-03-05] MEDS ORDERED: ACETAMINOPHEN 325 MG TAB PO PRN (10:42)
--- NOTE | 2025-03-05 14:26 | Hospitalist Progress Note ---
Date of Service March 05, 2025 Assessment & Plan (1) Ileus: Plan: Postoperative ileus developed after recent surgery for gastric ulcer fistula. This has now resolved. (2) Nausea and vomiting: Plan: Present on admission. Now resolved (3) Mild dehydration: Plan: Present on admission. Now resolved (4) Weakness: Plan: Continue OT and PT while hospitalized. Insurance has denied IPR placement. Case management is pursuing SNF placement (5) Transaminitis: (6) UTI (urinary tract infection): Plan: Klebsiella isolated. Currently on Rocephin, day 5 (7) Hypokalemia: Plan: Mild. Oral potassium replacement ordered. Serial labs Plan Insurance has denied IPR placement. Case management is pursuing SNF placement. She is medically stable for discharge once arrangements are finalized Admission and Anticipated Discharge Date Admission Date: March 01, 2025 Subjective Alert and oriented. Nausea and vomiting have resolved. [facility] has been denied by insurance. Case management will pursue SNF placement. Potassium replacement underway. Day 5 Rocephin therapy for Klebsiella UTI present on admission. Oxycodone was uptitrated to her usual home dosage. She is medically stable for discharge when arrangements are finalized Review of Systems 2 Review of Systems: Constitutionalno fever or chills ENTno blurred vision, no double vision, no epistaxis, no sore throat Respiratoryno cough, no wheezing, no shortness of breath Cardiacno palpitations, no chest pain, no syncope Cas nausea, vomiting, diarrhea, melena, hematochezia GUno urinary retention, no urinary incontinence, no dysuria, no hematuria Musculoskeletalno joint pain, no muscle tenderness Skinno bruising, no rashes, no pruritus Neurono isolated weakness, no paresthesia. Generalized weakness Psychno depression, no anxiety Physical Exam 2 Physical Exam: General-alert and oriented x3, no fever, no chills HEENT-head atraumatic and normocephalic, pupils equal and reactive to light, extraocular muscles intact Neck-no lymphadenopathy or thyromegaly, trachea midline Chest-clear to auscultation. No rales, wheezing or rhonchi Cardiac-regular rate and rhythm, normal S1 and S2 Abdomen-normal bowel sounds, no hepatosplenomegaly Extremities-no cyanosis, clubbing, or edema Neuro-cranial nerves II through XII intact, motor and sensory function within normal limits, strength symmetrical with generalized weakness, no focal deficits Psych-normal affect, normal mood Results & Data Results & Data Vital Signs (Past 12 Hours) Vital Signs Temp Pulse Resp BP Pulse Ox O2 Del Method 03/05/25 07:28 36.6 C 85 16 126/68 93 Room Air Laboratory Results 03/01/25 07:24 03/05/25 07:09 PG Care Time/CCT Total # of Minutes Spent Total Time Spent with Patient: Total time spent is greater than 50% in coordination of care (as documented) at patient's floor/unit and/or counseling patient: Coding Level of Care Code 77907 SUB INP/OBS CARE 3/50MIN Diagnoses Ileus K56.7 Nausea and vomiting R11.2 Mild dehydration E86.0 Weakness R53.1 Transaminitis R74.01 UTI (urinary tract infection) N39.0 Hypokalemia E87.6
[2025-03-05] MEDS: oxyCODONE HCL IR 5 MG TAB (IMMEDIATE RELEASE) PO PRN (14:54)
[2025-03-05] MEDS: DICLOFENAC SOD 1% GEL 100 GM TUBE EXT PRN (16:09)
[2025-03-05] MEDS: CALCIUM CARBONATE 500 MG CHEWABLE TAB PO PRN (18:17)
[2025-03-06 07:27] VITALS: BP 120/66; PULSE 66; TEMP 97.9; O2SAT 94
[2025-03-06 08:30] LABS: BUN Creatinine Ratio 12.5 (10-20); Calcium 10.1 mg/dl (8.6-10.3); Creatinine Clr Calc Pharmacy 31.2 ml/min; Potassium 3.3 mmol/L (3.5-5.1)
[2025-03-06] MEDS: POTASSIUM CHLORIDE CRTAB 20 MEQ TABCR PO STA (10:08)
--- NOTE | 2025-03-06 12:54 | Discharge Summary ---
Discharge Summary Date of Service March 06, 2025 Principal Dx & Hospital Course #1 = Principal Diagnosis (1) Ileus: Postoperative ileus developed after recent surgery for gastric ulcer fistula. This has now resolved. (2) Nausea and vomiting: Present on admission. Now resolved (3) Mild dehydration: Present on admission. Now resolved (4) Weakness: Continue OT and PT while hospitalized. Insurance has denied IPR placement. She will go home with home health services (5) Transaminitis: Mild. Resolving (6) UTI (urinary tract infection): Klebsiella isolated. Treated while hospitalized with intravenous Rocephin for 6 days. She will not need any further antibiotic therapy at discharge (7) Hypokalemia: Mild. Oral potassium replacement ordered. Serial labs Plan Home today, March 06, with home health services. 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 Patient presented due to diarrhea, nausea, vomiting, weakness, and poor appetite. She was found to have a mild ileus on CT scan and is being admitted for weakness which she feels unsafe to go home at this point. Patient seen at bedside. She stated she had her fistula repair last Wednesday., She had been on TPN for several months which was discontinued on Wednesday. She was discharged from the hospital Wednesday after her significant diarrhea during her inpatient stay resolved. It is patient stated after she returned home she started having diarrhea again which later stopped. Yesterday she developed nausea and vomiting. Patient has developed weakness, fatigue, and poor appetite since she has been home. She feels unsafe to return home at this point with her significant weakness. Her laboratories do appear as though she is mildly dehydrated with creatinine and BUN increased. Patient stated for her abdominal pain she has been taking 1 g of Tylenol and 10 mg of oxycodone every 6 hours, with mild transaminitis in ED. Patient states she did have some lightheadedness and nausea with vomiting which is why she came in this evening. She otherwise denies chest pain, shortness of breath, abdominal pain has been well-controlled on her regimen, denies fevers. She denies any nicotine or alcohol use. She stated she does have a history of recent DVT and PE in June while she was hospitalized which was treated with heparin and then Eliquis. She discontinued Eliquis in preparation of her recent surgery. She is due for her evening medications including gabapentin and pramipexole; will hold Bumex with hydration. She wishes to be full code. Discharge Exam General-alert and oriented x3, no fever, no chills HEENT-head atraumatic and normocephalic, pupils equal and reactive to light, extraocular muscles intact Neck-no lymphadenopathy or thyromegaly, trachea midline Chest-clear to auscultation. No rales, wheezing or rhonchi Cardiac-regular rate and rhythm, normal S1 and S2 Abdomen-normal bowel sounds, no hepatosplenomegaly Extremities-no cyanosis, clubbing, or edema Neuro-cranial nerves II through XII intact, motor and sensory function within normal limits, strength symmetrical with generalized weakness, no focal deficits Psych-normal affect, normal mood Discharge Plan Discharge Items Patient Disposition: Home - Home Health Services Reason For Visit: ILEUS, WEAKNESS Discharge Diagnosis: Postoperative ileus, Klebsiella UTI Condition on Discharge: Good Activity: Resume your previous activity Non-emergency contact: Primary Care Provider Call non-emergency contact if: your symptoms worsen Follow-up/Referrals: Mychal Hall MD [Primary Care Provider] - Diet: Regular and Heart Healthy Addtl Attending Provider Instructions: A prescription for Voltaren gel has been sent to [facility] pharmacy on [address] [facility]. All other medications remain the same Pending Studies at Discharge: No Stand-Alone Forms: My [facility], Smoking Cessation Medications and DC Order Prescriptions: New diclofenac sodium [Voltaren Arthritis Pain] 1 % Gel 4 g EXT BID Qty: 40 0RF Continued levothyroxine [Synthroid] 75 mcg tablet 75 mcg PO QAM Qty: 90 3RF allopurinol 100 mg tablet 100 mg PO HS Qty: 90 3RF pramipexole 0.5 mg tablet 0.5 mg PO HS Qty: 90 3RF Rx Instructions: administer 2 - 3 hours before bedtime cholecalciferol (vitamin D3) 50 mcg (2,000 unit) tablet 50 mcg PO DAILY loperamide 2 mg capsule 2 mg PO UD PRN (Reason: Diarrhea) Rx Instructions: 2-8 mg orally BID PRN pateint tapers for ostomy output PRN; gabapentin 100 mg capsule 100 mg PO BID Qty: 60 5RF carvedilol [Coreg] 6.25 mg tablet 6.25 mg PO BID Qty: 60 5RF Rx Instructions: must administer with a meal/food bumetanide 2 mg tablet 2 mg PO BID Qty: 60 2RF (DME) [facility] [place]ructions .MEDSUPPLY Qty: 1 0RF Rx Instructions: As directed fluticasone propionate 50 mcg/actuation spray,suspension 2 spray intranasal QAM PRN (Reason: sinus congestion) Qty: 32 5RF Kelp (iodine) 150 mcg tablet 150 mcg PO QAM clindamycin HCl 300 mg capsule 600 mg PO UD PRN (Reason: dental procedure) Rx Instructions: take one hour prior to dental appointment acetaminophen 500 mg capsule 1,000 mg PO Q8H Rx Instructions: Take 3 times per day to lessen pain. lysine 500 mg Tablet 500 mg PO QAM atorvastatin 10 mg tablet 10 mg PO 3XWK Rx Instructions: MON, WED, FRI. calcium carbonate 300 mg (750 mg) Tablet,Chewable 300 mg PO BID Vitamin C 100 mg Tablet 100 mg PO DAILY epinephrine [EpiPen] 0.3 mg/0.3 mL auto-injector 0.3 mg IM DIRECTED PRN (Reason: anaphylaxis) Rx Instructions: for 2 doses oxycodone 10 mg tablet 10 mg PO Q4H PRN (Reason: pain) Discharge Orders: Discharge Order (Routine); Ordered 03/06/25 Ordered By: Reece Mims Admission Data Admit Date/Time: 03/01/25 13:16 Attending Provider: Reece Mims Admit Provider: Hodan Jordan Primary Care Provider: Mychal Hall Other Providers: Hodan Jordan; [facility] Center[facility] [employer], [employer]; [facility]; IRB Approved Study,[facility] Hospital Stay Data Consultations 02/28/25 23:32 ED Decision to Admit Stat Diagnostic Imagining Performed 02/28/25 21:36 CT abd pelvis IV con only Stat Pending Results Patient Have Any Pending Studies at Discharge: No Discharge Instructions Given to Patient (Per Discharging Provider) A prescription for Voltaren gel has been sent to [facility] pharmacy on [address]. All other medications remain the same Total Time Total Time Spent Total Time Spent (In Minutes): 45 minutes Coding Level of Care Code 26604 INP/OBS DISCH >30 MIN Diagnoses Ileus K56.7 Nausea and vomiting R11.2 Mild dehydration E86.0 Weakness R53.1 Transaminitis R74.01 UTI (urinary tract infection) N39.0 Hypokalemia E87.6
== END 2025-03-06 16:25 | disposition home health service (06) | DRG 394 ==
LOC: SUATTDRO → 3N 19:26 → ED 19:26 → SUATTDRO 23:59 → 3N 03-01 01:41 → SUATTDRO 03-01 13:16

== ENCOUNTER 2025-03-09 19:42 | Inpatient (IN) ==
[2025-03-09 20:24] LABS: Basophils # (auto) 0.01 K/uL (0.00-0.20); Basophils % (auto) 0.1 %; Eosinophils # (auto) 0.07 K/uL (0.00-0.50); Eosinophils % (auto) 0.9 %; Hematocrit (blood only) 24.7 % (37.0-47.0); Hemoglobin 8.2 g/dl (12.0-16.0); Immature Granulocytes # (auto) 0.04 K/uL (0.01-0.20); Immature Granulocytes % (auto) 0.5 %; Lymphocytes # (auto) 0.89 K/uL (1.20-3.40); Mean Corpuscular Hemoglobin 30.4 pg (25.0-34.0); Mean Corpuscular Hgb Conc 33.2 g/dL (32.0-36.0); Mean Corpuscular Volume 91.5 fL (80.0-100.0); Mean Platelet Volume 10.6 fL (9.4-12.4); Monocytes # (auto) 0.67 K/uL (0.11-0.59); Monocytes % (auto) 8.3 %; Neutrophils % (auto) 79.2 %; Platelet Count 303 K/uL (130-400); RDW Coefficient of Variation 14.9 % (11.5-14.5); RDW Standard Deviation 49.2 fL (36.4-46.3); White Blood Count 8.08 K/ul (4.8-10.8)
--- NOTE | 2025-03-09 20:37 | Emergency Department Note ---
Impression & Plan SONI (acute kidney injury), Weakness, Transaminitis ED Provider Note Provider: Cali Nielsen MD CHIEF COMPLAINT: Weakness, nausea, abnormal blood work HISTORY OF PRESENT ILLNESS: Patient is a 74-year-old female significant past medical history of diastolic heart failure, gastric ulcer last fall resulting in internal fistula surgical repaired the beginning of this month at [facility] as well as hypothyroidism and CKD presenting today reporting abnormal blood work. States she was discharged on Wednesday after an ileus here postsurgically. Patient states that she is been trying to eat and drink but does feel quite thirsty and has been nauseous. No abdominal pain of significance. Abdominal wound reported be healing well and no fevers reported. States she talked with her doctors about getting repeat blood work today as she just felt bit weaker. Looked at the portal and noted significant abnormalities. She could not get a hold of her doctor to discuss these issues so came here for further evaluation. Previously on TPN but not in some time. PAST MEDICAL HISTORY: As noted above MEDICATIONS: Reviewed home medications SOCIAL HISTORY: Non-smoker PHYSICAL EXAM: GENERAL: alert and oriented in no acute distress on stretcher Head: normocephalic and atraumatic EYES: No injection, discharge or icterus. NECK: Trachea midline. ENT: Mucous membranes pink and moist. LUNGS: Airway patent. No retractions. Breath sounds clear HEART: Regular rate and rhythm. No chest wall tenderness ABDOMEN: Soft and non-tender, without guarding or rebound. Healing midline abdominal wound without erythema or discharge. SKIN: Acyanotic, warm, dry, without rashes EXTREMITIES: Without tenderness with 1+ edema of the lower extremities NEUROLOGICAL: No focal deficits. No aphasia. No facial droop or slurred speech. Ambulatory. EK beats. Normal sinus rhythm incomplete right bundle branch block. No acute ST segment elevation or depression with QTc of 438. CONTINUOUS CARDIAC MONITORING: was ordered and showed a heart rate of 70s to 80s bpm in normal sinus rhythm Patient's laboratory studies and imaging reviewed. Differential includes Infection, dehydration, metabolic abnormality, hypo/hyperglycemia, electrolyte disturbance, gastrointestinal issues, anemia, hypoxia, cardiac sources, neurologic, as well as other pathologies. IMPRESSION/MEDICAL DECISION MAKING: Patient in no distress. Afebrile and no fevers reported. Borderline blood pressure initially upon arrival but not tachycardic. Patient with history of diastolic heart failure and little bit of pedal edema. Reports some dry mouth and reviewed outpatient blood work from earlier today. Repeat sent today here to double check. Blood work with evidence of stable mild anemia no leukocytosis. More significantly however some hyponatremia as well as significant acute kidney injury with a creatinine of almost 4 noted additionally with transaminitis and a bilirubin elevation noted. Denies significant abdominal pain and benign abdomen on exam with healing abdominal wound. Noncontrast CT scan sent to look for intra-abdominal pathology. Given gentle 500 cc of IV fluid for hydration but will be careful given her history of diastolic heart failure to prevent fluid overload. Does not seem infectious in nature. It seems like she is not keeping up her hydration status at this point. Did have a bowel movement earlier today but denies severe diarrhea or other obstructive symptoms. CT abdomen pelvis per radiology some fluid-filled small bowel loops questioning enteritis with little bit of small bowel mesentery edema without free air or abscess noted and postoperative change without bowel obstruction. No calcified stones or ductal dilation noted to the gallbladder or bile ducts with some gallbladder sludge. Again nontender in this region. Does not seem obviously septic at this time but I do question again dehydration. Doubt this is infectious hepatitis. Updated patient at bedside and she is agreeable to stay. Hospitalist team contacted. Patient stable. DIAGNOSIS: DehydrationAKI, transaminitis, weakness DISPOSITION: Hospitalist will evaluate Patient was agreeable with this plan. Past Med/Surg History Problem List (Updated 03/09/25 @ 22:00 by Cali Nielsen M.D.) Transaminitis (Acute) Weakness (Acute) SONI (acute kidney injury) (Acute) Hypokalemia UTI (urinary tract infection) SONI (acute kidney injury) (Acute) Postoperative ileus (Acute) Transaminitis Weakness Mild dehydration Nausea and vomiting Cervical stenosis (uterine cervix) Thickened endometrium Abnormal finding on imaging Malnutrition Pulmonary emboli Intra-abdominal abscess Enterocutaneous fistula Septic shock due to Pseudomonas species Acute on chronic diastolic (congestive) heart failure Acute kidney injury superimposed on CKD Status post exploratory laparotomy Perforated gastric ulcer Hyperkalemia SONI (acute kidney injury) Septic shock Perforated bowel (Acute) Free intraperitoneal air Uterine mass Adrenal mass 1 cm to 4 cm in diameter Arthrofibrosis of left hip joint Abnormal CT scan Hip arthritis Colonic mass Abnormal colonoscopy Positive colorectal cancer screening using Cologuard test Positive colorectal cancer screening using Cologuard test Hyperparathyroidism UTI (urinary tract infection) Neuropathy Hyponatremia Anemia S/P total right hip arthroplasty Impaired glucose metabolism Grade II diastolic dysfunction Periodic limb movement disorder (PLMD) Chronic kidney disease (CKD) stage G3a/A3, moderately decreased glomerular filtration rate (GFR) between 45-59 mL/min/1.73 square meter and albuminuria creatinine ratio greater than 300 mg/g Hyperlipidemia Lumbar stenosis with neurogenic claudication Severe at L4-5 Gout Hypothyroidism HTN (hypertension) Medical History Acute on chronic diastolic (congestive) heart failure hx, ~05/2024, "occurred when she had a perforated gastric ulcer" Adrenal mass 1 cm to 4 cm in diameter hx 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 has had epidural steroid injections and physical therapy Hyperparathyroidism pt unsure of details Hypothyroidism Hyperlipidemia Hypertension Hx of gout never had symptoms, had elevated uric acid levels. Hx of basal cell carcinoma Chronic kidney disease, stage 3 plans to see [facility] Nephrology Hx of migraines prior to menopause Surgical History H/O exploratory laparotomy (06/21/24) Exploratory Laparotomy, Gastric Washout, Repair of Perforated Gastric Ulcer(Not Applicable) - Flakito Rizzo DO, FACS S/P epidural steroid injection History of right hip replacement Hx of laparoscopy for tx endometriosis Hx of colonoscopy S/P Mohs surgery for basal cell carcinoma History of section Family History Brother Myocardial infarction Hypertension Smoker Grandmother (Maternal) Diabetes Father Hypertension Cancer bladder Stroke Myocardial infarction Mother Hypertension Asthma Congestive heart failure Myocardial infarction Sister Hypertension Eczema Denies family history of Ovarian cancer Prostate cancer Breast cancer Colorectal cancer Social History Smoking Status: Never smoker Second Hand Exposure: Yes (hx growing up); Do You Dip or Chew Tobacco: No; Hx Alcohol Use: No Hx Substance Use: No Preferred Language: Beninese Communication Ability: Effective Visual Impairment: No Limitations Hearing Ability: Normal Pan Greaser Required: No Beliefs That Will Affect Care: None marital status: / Current Living Situation: Alone current occupational status: employed 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 How many Children do You have: 1 Feels Safe at Home: Yes Childhood Exposure to Second-Hand Smoke: Yes Diet: regular caffeine: Yes during the past year weight has: remained stable Dental Care, Regularly: Yes Physical Activity Frequency: Daily Seatbelt Use: always Sunscreen Use: Yes Assistive Devices: Cane and Walker Allergies Allergies Allergy/AdvReac Type Severity Reaction Status Date / Time Penicillins Allergy Severe Anaphylaxis Verified 03/09/25 22:01 ciprofloxacin AdvReac Intermediate myalgia Verified 03/09/25 22:01 [id number] Reductase AdvReac Intermediate muscle Verified 03/09/25 22:01 Inhibitor aches Home Meds Home Medications Medication Instructions Recorded Confirmed iodine 150 mcg tablet (Kelp 150 mcg PO QAM 10/16/22 03/09/25 (iodine)) acetaminophen 500 mg capsule 1,000 mg PO Q8H 04/26/24 03/09/25 clindamycin HCl 300 mg capsule 600 mg PO UD PRN dental procedure 04/26/24 03/09/25 lysine 500 mg tablet 500 mg PO QAM Cold Sores 04/26/24 03/09/25 cholecalciferol (vitamin D3) 50 50 mcg PO DAILY 09/29/24 03/09/25 mcg (2,000 unit) tablet loperamide 2 mg capsule 2 mg PO UD PRN Diarrhea 09/29/24 03/09/25 atorvastatin 10 mg tablet 10 mg PO 3XWK 01/16/25 03/09/25 ascorbic acid (vitamin C) 100 mg 100 mg PO DAILY 02/28/25 03/09/25 tablet (Vitamin C) calcium carbonate 300 mg PO BID 02/28/25 03/09/25 epinephrine 0.3 mg/0.3 mL 0.3 mg IM DIRECTED PRN 02/28/25 03/09/25 injection, auto-injector (EpiPen) anaphylaxis oxycodone 10 mg tablet 10 mg PO Q4H PRN pain 02/28/25 03/09/25 diclofenac sodium 1 % topical gel 4 g EXT BID PRN Pain 03/09/25 03/09/25 (Voltaren Arthritis Pain) levothyroxine 75 mcg tablet 75 mcg PO DAILYBB 03/09/25 03/09/25 (Synthroid) Previous Rx's Medication Instructions Recorded Jolynn Walker #1 ea 10/13/22 fluticasone propionate 50 2 spray intranasal QAM PRN sinus 05/16/24 mcg/actuation nasal congestion #32 grams spray,suspension allopurinol 100 mg tablet 100 mg PO HS #90 tabs 05/17/24 pramipexole 0.5 mg tablet 0.5 mg PO HS #90 tabs 05/18/24 carvedilol 6.25 mg tablet (Coreg) 6.25 mg PO BID #60 tabs 10/24/24 gabapentin 100 mg capsule 100 mg PO BID #60 caps 10/24/24 bumetanide 2 mg tablet 2 mg PO BID #60 tabs 02/19/25 Results & Data (ED) Vital Signs Vital Signs - 24 hr 03/09/25 19:50 03/09/25 20:12 03/09/25 20:30 Temperature 36.5 C Temperature Source Temporal Artery Scan Pulse Rate 77 75 Pulse Rate from SpO2 Sensor Respiratory Rate 16 Respiratory Effort / Characteristics Non-Labored Spontaneous Respiratory Depth Normal Respiratory Pattern Regular Blood Pressure 93/56 L Blood Pressure Mean 68 Pulse Oximetry 93 85 L Oxygen Delivery Method Room Air Room Air Oxygen Flow Rate Sepsis Recent Fever Within 48 Hours No Sepsis New/Unexplained Change in Mental Status N/A Sepsis Action Taken by Nursing No Action Required 03/09/25 20:57 03/09/25 22:00 Temperature Temperature Source Pulse Rate 72 76 Pulse Rate from SpO2 Sensor 72 76 Respiratory Rate 16 15 Respiratory Effort / Characteristics Respiratory Depth Respiratory Pattern Blood Pressure 112/57 L 90/61 L Blood Pressure Mean 75 70 Pulse Oximetry 95 94 Oxygen Delivery Method Nasal Cannula Nasal Cannula Oxygen Flow Rate 2 2 Sepsis Recent Fever Within 48 Hours Sepsis New/Unexplained Change in Mental Status Sepsis Action Taken by Nursing Laboratory Data 03/09/25 20:10 03/09/25 20:10 Lab Results 03/09/25 03/09/25 Range/Units 20:10 21:31 WBC 8.08 (4.8-10.8) K/ul RBC 2.70 L (4.20-5.40) M/uL Hgb 8.2 L (12.0-16.0) g/dl Hct 24.7 L (37.0-47.0) % MCV 91.5 (80.0-100.0) fL MCH 30.4 (25.0-34.0) pg MCHC 33.2 (32.0-36.0) g/dL RDW Std Deviation 49.2 H (36.4-46.3) fL RDW Coeff of Rafael 14.9 H (11.5-14.5) % Plt Count 303 (130-400) K/uL MPV 10.6 (9.4-12.4) fL Immature Gran % (Auto) 0.5 % Neut % (Auto) 79.2 % Lymph % (Auto) 11.0 % Bowie % (Auto) 8.3 % Eos % (Auto) 0.9 % Baso % (Auto) 0.1 % Neut # (Auto) 6.40 (1.40-6.50) K/uL Lymph # (Auto) 0.89 L (1.20-3.40) K/uL Bowie # (Auto) 0.67 H (0.11-0.59) K/uL Eos # (Auto) 0.07 (0.00-0.50) K/uL Baso # (Auto) 0.01 (0.00-0.20) K/uL Immature Gran # (Auto) 0.04 (0.01-0.20) K/uL Sodium 130 L (136-145) mmol/L Potassium 4.3 (3.5-5.1) mmol/L Chloride 96 L (98-107) mmol/L Carbon Dioxide 21 (21-32) mmol/L Anion Gap 13 H (3-11) BUN 84 H (6-23) mg/dl Creatinine 3.82 H (0.6-1.2) mg/dl Est Cr Clr Drug Dosing 11.8 ml/min eGFR 11.69 BUN/Creatinine Ratio 22.0 H (10-20) Glucose 87 (70-99(Fasting)) mg/dl Calcium 10.1 (8.6-10.3) mg/dl Total Bilirubin 2.7 H (0.2-1.0) mg/dl AST 229 H (13-39) U/L ALT 417 H (7-52) U/L Alkaline Phosphatase 402 H (34-104) U/L Troponin I High Sens 30.2 H (0-14) pg/ml Total Protein 7.4 (6.0-8.3) gm/dl Albumin 3.4 (3.4-5.0) gm/dl Globulin 4.0 (2.5-4.0) gm/dl Albumin/Globulin Ratio 0.9 (0.9-2) Lipase 21 (11-82) U/L Administered Medications Discontinued Medications Sodium Chloride (Nss) 500 mls @ 999 mls/hr IV .Q31M ONE Stop: 03/09/25 21:04 Last Infusion: 03/09/25 22:35 Dose: Infused Documented By: Admin: 03/09/25 20:49 Dose: 999 mls/hr Documented By: GUILLERMO Imaging Data Radiologist's Impression: Abdomen/Pelvis CT 03/09/25 20:34 Exam(s): CT ABDOMEN + PELVIS Without Contrast EXAM: CT Abdomen and Pelvis Without Intravenous Contrast CLINICAL HISTORY: Reason for exam: soni, elev lfts/bili, post surgery. TECHNIQUE: Axial computed tomography images of the abdomen and pelvis without intravenous contrast. CTDI is 25.41 mGy and DLP is 1100.2 mGy-cm. Automated exposure control was utilized for the study. A dose lowering technique was utilized adhering to the principles of ALARA. COMPARISON: 02/28/25 FINDINGS: Lung bases: Bibasilar subsegmental atelectasis and trace effusions. ABDOMEN: Liver: Unremarkable. Gallbladder and bile ducts: Gallbladder sludge. No calcified stones. No ductal dilation. Pancreas: Unremarkable. No ductal dilation. Spleen: Unremarkable. No splenomegaly. Adrenals: Benign left adrenal adenoma measuring 2.5 cm; no follow-up indicated. Kidneys and ureters: Unremarkable. No hydronephrosis or radiopaque stones. Stomach and bowel: Postoperative changes of the small bowel. No bowel obstruction. Fluid-filled loops of small bowel with segments of small bowel wall thickening. PELVIS: Appendix: No evidence of appendicitis. Bladder: Unremarkable. No stones. Reproductive: Unremarkable as visualized. ABDOMEN and PELVIS: Intraperitoneal space: There is edema within the small bowel mesentery without free air or, significant free fluid, or abscess. Bones/joints: Right total hip arthroplasty. Moderate osteoarthritis of the left hip. No acute fracture or dislocation. Soft tissues: Evidence of previous laparotomy with midline abdominal wall skin closure roberto. Vasculature: Atherosclerosis. No abdominal aortic aneurysm. Lymph nodes: Unremarkable. No enlarged lymph nodes. IMPRESSION: 1. Fluid-filled loops of small bowel with segments of small bowel wall thickening. Correlate for enteritis. 2. There is edema within the small bowel mesentery without free air, significant free fluid, or abscess. 3. Postoperative changes of the small bowel. No bowel obstruction. Electronically signed by: Yovany Padilla M.D. 03/09/25 21:43 PM Discharge Plan Visit Data Chief Complaint: Abdominal Pain Stated Complaint: ABD PAIN ED Provider: Cali Nielsen Discharge Problem: SONI (acute kidney injury), Weakness, Transaminitis Patient Disposition: Being Evaluated by Hospitalist Condition: Fair Discharge Instructions Interventions: ED Discharge Assessment Last Done: 03/09/25 23:20 Forms Stand Alone Forms: [employer] Prescriptions Prescriptions: No Action allopurinol 100 mg tablet 100 mg PO HS Qty: 90 3RF pramipexole 0.5 mg tablet 0.5 mg PO HS Qty: 90 3RF Rx Instructions: administer 2 - 3 hours before bedtime cholecalciferol (vitamin D3) 50 mcg (2,000 unit) tablet 50 mcg PO DAILY loperamide 2 mg capsule 2 mg PO UD PRN (Reason: Diarrhea) Rx Instructions: 2-8 mg orally BID PRN pateint tapers for ostomy output PRN; gabapentin 100 mg capsule 100 mg PO BID Qty: 60 5RF carvedilol [Coreg] 6.25 mg tablet 6.25 mg PO BID Qty: 60 5RF Rx Instructions: must administer with a meal/food bumetanide 2 mg tablet 2 mg PO BID Qty: 60 2RF (DME) Wheeled Walker Misc See Rx Instructions .MEDSUPPLY Qty: 1 0RF Rx Instructions: As directed fluticasone propionate 50 mcg/actuation spray,suspension 2 spray intranasal QAM PRN (Reason: sinus congestion) Qty: 32 5RF Kelp (iodine) 150 mcg tablet 150 mcg PO QAM clindamycin HCl 300 mg capsule 600 mg PO UD PRN (Reason: dental procedure) Rx Instructions: take one hour prior to dental appointment acetaminophen 500 mg capsule 1,000 mg PO Q8H Rx Instructions: Take 3 times per day to lessen pain. lysine 500 mg Tablet 500 mg PO QAM atorvastatin 10 mg tablet 10 mg PO 3XWK Rx Instructions: MON, WED, FRI. calcium carbonate 300 mg (750 mg) Tablet,Chewable 300 mg PO BID Vitamin C 100 mg Tablet 100 mg PO DAILY epinephrine [EpiPen] 0.3 mg/0.3 mL auto-injector 0.3 mg IM DIRECTED PRN (Reason: anaphylaxis) Rx Instructions: for 2 doses oxycodone 10 mg tablet 10 mg PO Q4H PRN (Reason: pain) levothyroxine [Synthroid] 75 mcg tablet 75 mcg PO DAILYBB diclofenac sodium [Voltaren Arthritis Pain] 1 % gel 4 g EXT BID PRN (Reason: Pain) Rx Instructions: APPLY TO LOWER BACK AND LEFT HIP, NEEDED FOR PAIN Referrals Referrals: Mychal Hall MD [Primary Care Provider] -
[2025-03-09 20:41] LABS: Albumin Globulin Ratio 0.9 (0.9-2); Albumin Level 3.4 gm/dl (3.4-5.0); Bilirubin,Total 2.7 mg/dl (0.2-1.0); Calcium 10.1 mg/dl (8.6-10.3); Creatinine Clr Calc Pharmacy 11.8 ml/min; Potassium 4.3 mmol/L (3.5-5.1); Total Protein 7.4 gm/dl (6.0-8.3)
[2025-03-09] MEDS: SODIUM CHLORIDE 0.9% 500 ML IV ONE (20:49)
--- NOTE | 2025-03-09 21:44 | CT Scan Report ---
Exam(s): CT ABDOMEN + PELVIS Without Contrast EXAM: CT Abdomen and Pelvis Without Intravenous Contrast CLINICAL HISTORY: Reason for exam: wilbert, elev lfts/bili, post surgery. TECHNIQUE: Axial computed tomography images of the abdomen and pelvis without intravenous contrast. CTDI is 25.41 mGy and DLP is 1100.2 mGy-cm. Automated exposure control was utilized for the study. A dose lowering technique was utilized adhering to the principles of ALARA. COMPARISON: 02/28/25 FINDINGS: Lung bases: Bibasilar subsegmental atelectasis and trace effusions. ABDOMEN: Liver: Unremarkable. Gallbladder and bile ducts: Gallbladder sludge. No calcified stones. No ductal dilation. Pancreas: Unremarkable. No ductal dilation. Spleen: Unremarkable. No splenomegaly. Adrenals: Benign left adrenal adenoma measuring 2.5 cm; no follow-up indicated. Kidneys and ureters: Unremarkable. No hydronephrosis or radiopaque stones. Stomach and bowel: Postoperative changes of the small bowel. No bowel obstruction. Fluid-filled loops of small bowel with segments of small bowel wall thickening. PELVIS: Appendix: No evidence of appendicitis. Bladder: Unremarkable. No stones. Reproductive: Unremarkable as visualized. ABDOMEN and PELVIS: Intraperitoneal space: There is edema within the small bowel mesentery without free air or, significant free fluid, or abscess. Bones/joints: Right total hip arthroplasty. Moderate osteoarthritis of the left hip. No acute fracture or dislocation. Soft tissues: Evidence of previous laparotomy with midline abdominal wall skin closure roberto. Vasculature: Atherosclerosis. No abdominal aortic aneurysm. Lymph nodes: Unremarkable. No enlarged lymph nodes. IMPRESSION: 1. Fluid-filled loops of small bowel with segments of small bowel wall thickening. Correlate for enteritis. 2. There is edema within the small bowel mesentery without free air, significant free fluid, or abscess. 3. Postoperative changes of the small bowel. No bowel obstruction. Electronically signed by: Yovany Padilla M.D. 03/09/25 21:43 PM
--- NOTE | 2025-03-09 22:13 | History & Physical Report ---
Date of Service March 09, 2025 Assessment & Plan (1) Transaminitis: Plan: Gisela is a 74-year-old female with recent perforated gastric ulcer s/p emergent repair complicated by fistula formation with subsequent revision at [facility] who presents with fatigue, weakness, poor p.o. intake and SONI. She was recently discharged home however since that time has had poor intake and had a few days of liquid diarrhea which has subsequently become more formed in the last day. SONI Suspect prerenal with poor p.o. intake, continued Bumex use, and diarrhea Does have lower extremity edema however also has a venous stasis component. Lungs are clear to auscultation S/p 500 cc in the ER. Blood pressure fluid responsive, decreases after boluses manage 1 L additional bolus ordered, followed by 1 L at maintenance Hold Bumex Renally dose medications as needed Hyponatremia Suspect solute loss and hypovolemic hyponatremia Fluids repleted as noted Trend BMP. If sodium decreases further with resuscitation then fluid restrict and add urine osmolality/sodium. Urine sodium on admission deferred as this will not be accurate due to Bumex use Diarrheal illness With evidence of enteritis on CT Liquid stool for a few days this is starting to become more formed Stool studies/C. difficile pending Supportive care. No evidence for antibiotic treatment at time of admission Diastolic CHF, mild troponin elevation without evidence of ACS Echo 06/2024: LVEF 65 to 70%, no regional wall motion abnormalities Clinically volume contracted with the exception of ankle edema suspected due to venous stasis Admitting EKG normal sinus rhythm, incomplete right bundle branch block similar to prior without territorial ischemic changes Troponin 30.2, trended. No chest pain. Suspect demand. Following medical telemetry Transaminitis CTA/P without evidence of CBD dilation or gallbladder abnormality. DDx includes shock liver/hypoperfusion Bladder ultrasound ordered to follow-up on obstructive pattern LFTs If LFTs are rising follow-up with MRCP. Does have surgical fang in place however should be MRI safe if needed. Fang are due to be removed next week Trend LFTs Recent Gastric Perf /Fistula s/p surgical repair - Surgical site C/D/I. CT-A/P without abscess/complications. Evidence of possible enteritis - No leukocytosis Advance daily, monitor clinically Hypothyroidism Continue Synthroid Hyperlipidemia Continue atorvastatin 10 mg p.o. 3 times weekly. She does have a statin myalgia reaction however tolerates this well History of elevated uric acid Repeat level pending, no evidence of acute gout flare DVT prophylaxis: SCDs, heparin subcu due to renal dysfunction Disposition: M/T due to troponin elevation CODE STATUS: Full code Diet: Full liquids, advance as tolerated (2) Weakness: (3) Acute on chronic diastolic (congestive) heart failure: (4) SONI (acute kidney injury): History of Present Illness Primary Care Provider: Mychal Hall MD Seen at bedside in conjunction with PA. Gisela koenig she initially was seen a few months ago for a perforated gastric ulcer. This was treated with emergent surgery; however she had complications including a fistula development which required surgical intervention at [facility]. Was transiently on TPN until 02/21 when she has intervention on her fistula which was successful at the time. TPN was discontinued February 25. Was discharged and had some initial diarrhea followed by some constipation earlier in the month. She was seen in the ER and was diagnosed with an ileus, was discharged this past Wednesday and she felt much better at that time and was having regular BMs. After returning ashlie efelt constipation, with poor appetite, and nausea again. Overall felt poorly and tired. Had blood work as an outpatient which showed elevated kidney numbers and came back in and feels generally weak all over. Also notes disappointment that insurance did not cover rehab as she felt better this past Wednesday but did not every really feel back to her baseline. Denies abdominal pain Last BM earlier today, 4-5 BMs loose but not liquid anymore. Liquid diarrhea earlier in the week which has some more texture/become loose last few BMs. Notes while on TPN had almost no recatl BMs for 4 months and knew it would take some time to adjust. BMs brown, nothing bloody/black No fevers or chills no chest pain or dyspnea Nausea improved at time of admitting assessment, but has had nausea intermittently last few days +lightheaded this morning. +itchy all over. BSG 84. Normally gets intermittent iching Took medicines today. Took oxycodone for hip arthritis. Using voltarin Peeing normally. Takes a diurutic. Feet had been a little swollen earlier in the week. Urine has not changed color, still generally light. Denies orthopnea Medical History: Reviewed Medications: Reviewed Surgical History: Reviewed Family history: Reviewed Allergies: Reviewed. Anaphylaxis to PCN, myalgias with Cipro and Statins Social History:No tobacco product use, no ETOH use Code Status: Surrogate DM would be her son Silvano Chase. Full Code Allergies Allergy/AdvReac Type Severity Reaction Status Date / Time Penicillins Allergy Severe Anaphylaxis Verified 03/09/25 22:01 ciprofloxacin AdvReac Intermediate myalgia Verified 03/09/25 22:01 [id number] Reductase AdvReac Intermediate muscle Verified 03/09/25 22:01 Inhibitor aches Home Medications Medication Instructions Recorded Confirmed Type Wheeled Walker #1 ea 10/13/22 01/09/25 Rx iodine 150 mcg tablet (Kelp 150 mcg PO QAM 10/16/22 03/09/25 History (iodine)) acetaminophen 500 mg capsule 1,000 mg PO Q8H 04/26/24 03/09/25 History clindamycin HCl 300 mg capsule 600 mg PO UD PRN dental procedure 04/26/24 03/09/25 History lysine 500 mg tablet 500 mg PO QAM Cold Sores 04/26/24 03/09/25 History fluticasone propionate 50 2 spray intranasal QAM PRN sinus 05/16/24 03/09/25 Rx mcg/actuation nasal congestion #32 grams spray,suspension allopurinol 100 mg tablet 100 mg PO HS #90 tabs 05/17/24 03/09/25 Rx pramipexole 0.5 mg tablet 0.5 mg PO HS #90 tabs 05/18/24 03/09/25 Rx cholecalciferol (vitamin D3) 50 50 mcg PO DAILY 09/29/24 03/09/25 History mcg (2,000 unit) tablet loperamide 2 mg capsule 2 mg PO UD PRN Diarrhea 09/29/24 03/09/25 History carvedilol 6.25 mg tablet (Coreg) 6.25 mg PO BID #60 tabs 10/24/24 03/09/25 Rx gabapentin 100 mg capsule 100 mg PO BID #60 caps 10/24/24 03/09/25 Rx atorvastatin 10 mg tablet 10 mg PO 3XWK 01/16/25 03/09/25 History bumetanide 2 mg tablet 2 mg PO BID #60 tabs 02/19/25 03/09/25 Rx ascorbic acid (vitamin C) 100 mg 100 mg PO DAILY 02/28/25 03/09/25 History tablet (Vitamin C) calcium carbonate 300 mg PO BID 02/28/25 03/09/25 History epinephrine 0.3 mg/0.3 mL 0.3 mg IM DIRECTED PRN 02/28/25 03/09/25 History injection, auto-injector (EpiPen) anaphylaxis oxycodone 10 mg tablet 10 mg PO Q4H PRN pain 02/28/25 03/09/25 History diclofenac sodium 1 % topical gel 4 g EXT BID PRN Pain 03/09/25 03/09/25 History (Voltaren Arthritis Pain) levothyroxine 75 mcg tablet 75 mcg PO DAILYBB 03/09/25 03/09/25 History (Synthroid) Past Med/Surg History Problem List (Updated 03/09/25 @ 22:00 by Cali Nielsen M.D.) Transaminitis (Acute) Weakness (Acute) SONI (acute kidney injury) (Acute) Hypokalemia UTI (urinary tract infection) SONI (acute kidney injury) (Acute) Postoperative ileus (Acute) Transaminitis Weakness Mild dehydration Nausea and vomiting Cervical stenosis (uterine cervix) Thickened endometrium Abnormal finding on imaging Malnutrition Pulmonary emboli Intra-abdominal abscess Enterocutaneous fistula Septic shock due to Pseudomonas species Acute on chronic diastolic (congestive) heart failure Acute kidney injury superimposed on CKD Status post exploratory laparotomy Perforated gastric ulcer Hyperkalemia SONI (acute kidney injury) Septic shock Perforated bowel (Acute) Free intraperitoneal air Uterine mass Adrenal mass 1 cm to 4 cm in diameter Arthrofibrosis of left hip joint Abnormal CT scan Hip arthritis Colonic mass Abnormal colonoscopy Positive colorectal cancer screening using Cologuard test Positive colorectal cancer screening using Cologuard test Hyperparathyroidism UTI (urinary tract infection) Neuropathy Hyponatremia Anemia S/P total right hip arthroplasty Impaired glucose metabolism Grade II diastolic dysfunction Periodic limb movement disorder (PLMD) Chronic kidney disease (CKD) stage G3a/A3, moderately decreased glomerular filtration rate (GFR) between 45-59 mL/min/1.73 square meter and albuminuria creatinine ratio greater than 300 mg/g Hyperlipidemia Lumbar stenosis with neurogenic claudication Severe at L4-5 Gout Hypothyroidism HTN (hypertension) Medical History Acute on chronic diastolic (congestive) heart failure hx, ~05/2024, "occurred when she had a perforated gastric ulcer" Adrenal mass 1 cm to 4 cm in diameter hx 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 has had epidural steroid injections and physical therapy Hyperparathyroidism pt unsure of details Hypothyroidism Hyperlipidemia Hypertension Hx of gout never had symptoms, had elevated uric acid levels. Hx of basal cell carcinoma Chronic kidney disease, stage 3 plans to see [facility] Nephrology Hx of migraines prior to menopause Surgical History H/O exploratory laparotomy (06/21/24) Exploratory Laparotomy, Gastric Washout, Repair of Perforated Gastric Ulcer(Not Applicable) - Flakito Rizzo DO, FACS S/P epidural steroid injection History of right hip replacement Hx of laparoscopy for tx endometriosis Hx of colonoscopy S/P Mohs surgery for basal cell carcinoma History of section Family History Brother Myocardial infarction Hypertension Smoker Grandmother (Maternal) Diabetes Father Hypertension Cancer bladder Stroke Myocardial infarction Mother Hypertension Asthma Congestive heart failure Myocardial infarction Sister Hypertension Eczema Denies family history of Ovarian cancer Prostate cancer Breast cancer Colorectal cancer Social History Smoking Status: Never smoker Second Hand Exposure: Yes (hx growing up); Do You Dip or Chew Tobacco: No; Hx Alcohol Use: No Hx Substance Use: No Preferred Language: Estonian Communication Ability: Effective Visual Impairment: No Limitations Hearing Ability: Normal Hand Expansion Envelope Maker Required: No Beliefs That Will Affect Care: None marital status: / Current Living Situation: Alone current occupational status: employed 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 NAD. Cooperative. HEENT: Atraumatic, normocephalic. Vision and hearing intact Pulm: Diminished but CTAB A&P. -wheezes, -rales, -rhonchi. Symmetrical chest rise. No increased work of breathing. No respiratory distress. Cardiac: RRR, -mrg. Radial pulses intact and symmetrical. Abdominal: Midline incision healing without evidence of dehiscence. Fang in place. No warmth, erythema, tenderness. Minimal abdominal tenderness, no rebound/guarding. Extremities: Pitting edema of the ankles bilaterally Results & Data Results & Data Vital Signs (Past 12 Hours) Vital Signs Temp Pulse Resp BP Pulse Ox O2 Del Method O2 Flow Rate 03/09/25 20:57 72 16 112/57 L 95 Nasal Cannula 2 03/09/25 20:30 85 L Room Air 03/09/25 20:12 75 03/09/25 19:50 36.5 C 77 16 93/56 L 93 Room Air PG Care Time/CCT Total # of Minutes Spent Total Time Spent with Patient: Total time spent is greater than 50% in coordination of care (as documented) at patient's floor/unit and/or counseling patient: Coding Level of Care Code 49841 INT INP/OBS CARE 3/75MIN Diagnoses Transaminitis R74.01 Weakness R53.1 Acute on chronic diastolic (congestive) heart failure I50.33 SONI (acute kidney injury) N17.9
[2025-03-10 00:09] LABS: Appearance Urine Clear (Clear); Bacteria Urine Automated None Seen (None Seen); Bilirubin Urine Negative (Negative); Blood Urine Negative (Negative); Cast Urine Automated >20 /lpf (0-2); Color Urine Dark Yellow; Glucose Urine UA Negative (Negative); Hyaline Casts Urine Present /lpf (None Presnt); Ketones Urine Negative (Negative); Leukocyte Esterase Urine Trace (Negative); Nitrite Urine Negative (Negative); Protein Urine Negative (Negative); RBC Urine Automated 0-2 /hpf (0-2); Specific Gravity Urine 1.012 (1.000-1.030); Urobilinogen Urine Negative (Negative); WBC Urine Automated 0-5 /hpf (0-5)
--- NOTE | 2025-03-10 00:15 | Ultrasound Report ---
Exam(s): US LIVER EXAM: US Abdomen Limited CLINICAL HISTORY: Reason for exam: Transaminitis. TECHNIQUE: Real-time ultrasound of the abdomen with image documentation. COMPARISON: No relevant prior studies available. FINDINGS: Liver: Liver measures 16.6 cm. Portal vein patent and normally directed. Gallbladder: Gallbladder distended with sludge/stones. Wall thickness is borderline at 3 mm. Rutherford sign reported as negative. Question of trace pericholecystic fluid. Common bile duct: No biliary dilatation. CBD 5 mm. Kidneys: Right kidney measures 10.6 cm. No hydronephrosis. Simple cortical cyst measuring 11 mm; no follow-up indicated. IMPRESSION: Gallbladder distended with sludge/stones. Wall thickness is borderline at 3 mm. Rutherford sign reported as negative. Electronically signed by: Yovany Padilla M.D. 03/10/25 00:14 AM
[2025-03-10] MEDS ORDERED: FLUTICASONE PROPIONATE NA SPR 16 GM BTL PRN (00:32)
[2025-03-10] MEDS: LACTATED RINGER'S 1,000 ML IV STA (00:33)
[2025-03-10] MEDS ORDERED: Nursing to Pharmacy Communication SCH (01:30)
[2025-03-10] MEDS: D5W AND LACTATED RINGERS 1,000 ML IV SCH (01:42)
[2025-03-10] MEDS: oxyCODONE HCL IR 5 MG TAB (IMMEDIATE RELEASE) PO PRN (05:17)
[2025-03-10] MEDS: LEVOTHYROXINE SODIUM 75 MCG TABLET PO SCH (05:18)
[2025-03-10 07:15] LABS: Basophils # (auto) 0.01 K/uL (0.00-0.20); Basophils % (auto) 0.2 %; Eosinophils # (auto) 0.09 K/uL (0.00-0.50); Eosinophils % (auto) 1.5 %; Hematocrit (blood only) 21.8 % (37.0-47.0); Hemoglobin 7.2 g/dl (12.0-16.0); Immature Granulocytes # (auto) 0.02 K/uL (0.01-0.20); Immature Granulocytes % (auto) 0.3 %; Lymphocytes # (auto) 0.83 K/uL (1.20-3.40); Mean Corpuscular Hemoglobin 30.1 pg (25.0-34.0); Mean Corpuscular Volume 91.2 fL (80.0-100.0); Mean Platelet Volume 10.5 fL (9.4-12.4); Monocytes % (auto) 8.4 %; Neutrophils # (auto) 4.47 K/uL (1.40-6.50); Neutrophils % (auto) 75.6 %; Platelet Count 283 K/uL (130-400); RDW Coefficient of Variation 14.5 % (11.5-14.5); Red Blood Count 2.39 M/uL (4.20-5.40); White Blood Count 5.92 K/ul (4.8-10.8)
[2025-03-10 07:47] LABS: Albumin Globulin Ratio 0.9 (0.9-2); Albumin Level 2.8 gm/dl (3.4-5.0); BUN Creatinine Ratio 30.2 (10-20); Calcium 9.4 mg/dl (8.6-10.3); Creatinine Clr Calc Pharmacy 17.7 ml/min; Globulin 3.2 gm/dl (2.5-4.0); Magnesium 1.8 mg/dl (1.7-2.4); Potassium 3.6 mmol/L (3.5-5.1)
[2025-03-10 07:57] LABS: Ovalocytes 1+; Polychromasia 1+
[2025-03-10] MEDS ORDERED: NON-FORMULARY MEDICATION (Lysine 500 mg Tablet) PO SCH (09:00)
[2025-03-10] MEDS: DICLOFENAC SOD 1% GEL 100 GM TUBE EXT SCH (09:26)
[2025-03-10] MEDS: CALCIUM CARBONATE 500 MG CHEWABLE TAB PO SCH (09:26)
[2025-03-10] MEDS: HEPARIN SOD 5,000 UNIT/0.5 ML VIAL SQ SCH (09:26)
[2025-03-10] MEDS: carvediloL 6.25 MG TAB PO SCH (09:26)
[2025-03-10] MEDS: GABAPENTIN 100 MG CAP PO SCH (09:26)
--- NOTE | 2025-03-10 10:09 | Nephrology Consultation ---
Date of Consultation March 10, 2025 Assessment & Plan (1) SONI (acute kidney injury): Non-oliguric. UA bland. Urine microscopy acellular. Hyaline casts noted. Kidneys are unobstructed on CT. Creatinine is trending down with IVF. Clinical presentation consistent with prerenal SONI from dehydration. Continue balanced isotonic IVF at 100 ml/hr. Hold Bumex. Document strict I/O's. Repeat metabolic profile tomorrow AM. Medications are appropriate for kidney function. (2) HTN (hypertension): BP acceptable. Relatively euvolemic this AM. Continue carvedilol per home Rx. (3) Lower extremity edema: Attributed to venous insufficiency. Continue feet elevation and compression stocking use. Hold Bumex. History of Present Illness Reason for Consultation: SONI Requesting Physician: Miguel Valdez MD Attending Physician: Miguel Valdez MD History of Present Illness Gisela Chase is a 74 year-old female with hypertension, gout, hypothyroidism, anemia, and a history of perforated gastric ulcer. I met Gisela in May/June when she was admitted to [facility] with septic shock from perforated gastric ulcer. She developed SONI at the time attributed to ATN. Thankfully, kidney function recovered nicely. Gisela's baseline creatinine is ~1 mg/dL. Following her initial surgical repair, she developed a fistula which required subsequent surgery at [facility] in January. Evenly recovered well. She had recently returned home from rehab. She was weaned off TPN earlier this month. Unfortunately, she has struggled with continued poor appetite and ongoing diarrhea with loose watery stool. She was admitted to [facility] from March 01- with Klebsiella UTI and an ileus. Following discharged, she continue to take Bumex for chronic lower extremity edema. She denies fluid retention or edema otherwise. She reports some persistent weakness and slightly reduced activity tolerance. She presented to the ER at [facility] yesterday with laboratory studies demonstrating SONI (creatinine 3.86 mg/dL). Gisela was found to be volume depleted. She has received >2 L of isotonic fluids. She is tolerating fluids well. Gisela has been requiring supplemental oxygen for resting hypoxia. She denies significant shortness of breath. She is non-oliguric. She denies fevers or chills. Creatinine has improved to 2.48 mg/dL. Allergies Allergy/AdvReac Type Severity Reaction Status Date / Time Penicillins Allergy Severe Anaphylaxis Verified 03/09/25 22:01 ciprofloxacin AdvReac Intermediate myalgia Verified 03/09/25 22:01 [id number] Reductase AdvReac Intermediate muscle Verified 03/09/25 22:01 Inhibitor aches Home Medications Medication Instructions Recorded Confirmed Type Wheeled Walker #1 ea 10/13/22 01/09/25 Rx iodine 150 mcg tablet (Kelp 150 mcg PO QAM 10/16/22 03/09/25 History (iodine)) acetaminophen 500 mg capsule 1,000 mg PO Q8H 04/26/24 03/09/25 History clindamycin HCl 300 mg capsule 600 mg PO UD PRN dental procedure 04/26/24 03/09/25 History lysine 500 mg tablet 500 mg PO QAM Cold Sores 04/26/24 03/09/25 History fluticasone propionate 50 2 spray intranasal QAM PRN sinus 05/16/24 03/09/25 Rx mcg/actuation nasal congestion #32 grams spray,suspension allopurinol 100 mg tablet 100 mg PO HS #90 tabs 05/17/24 03/09/25 Rx pramipexole 0.5 mg tablet 0.5 mg PO HS #90 tabs 05/18/24 03/09/25 Rx cholecalciferol (vitamin D3) 50 50 mcg PO DAILY 09/29/24 03/09/25 History mcg (2,000 unit) tablet loperamide 2 mg capsule 2 mg PO UD PRN Diarrhea 09/29/24 03/09/25 History carvedilol 6.25 mg tablet (Coreg) 6.25 mg PO BID #60 tabs 10/24/24 03/09/25 Rx gabapentin 100 mg capsule 100 mg PO BID #60 caps 10/24/24 03/09/25 Rx atorvastatin 10 mg tablet 10 mg PO 3XWK 01/16/25 03/09/25 History bumetanide 2 mg tablet 2 mg PO BID #60 tabs 02/19/25 03/09/25 Rx ascorbic acid (vitamin C) 100 mg 100 mg PO DAILY 02/28/25 03/09/25 History tablet (Vitamin C) calcium carbonate 300 mg PO BID 02/28/25 03/09/25 History epinephrine 0.3 mg/0.3 mL 0.3 mg IM DIRECTED PRN 02/28/25 03/09/25 History injection, auto-injector (EpiPen) anaphylaxis oxycodone 10 mg tablet 10 mg PO Q4H PRN pain 02/28/25 03/09/25 History diclofenac sodium 1 % topical gel 4 g EXT BID PRN Pain 03/09/25 03/09/25 History (Voltaren Arthritis Pain) levothyroxine 75 mcg tablet 75 mcg PO DAILYBB 03/09/25 03/09/25 History (Synthroid) Patient History Medical History Acute on chronic diastolic (congestive) heart failure hx, ~05/2024, "occurred when she had a perforated gastric ulcer" Adrenal mass 1 cm to 4 cm in diameter 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 has had epidural steroid injections and physical therapy Hyperparathyroidism pt unsure of details Hypothyroidism Hyperlipidemia Hypertension Hx of gout never had symptoms, had elevated uric acid levels. Hx of basal cell carcinoma Chronic kidney disease, stage 3 plans to see [facility] Hx of migraines prior to menopause Surgical History H/O exploratory laparotomy (06/21/24) Exploratory Laparotomy, Gastric Washout, Repair of Perforated Gastric Ulcer(Not Applicable) - Flakito Rizzo DO, FACS S/P epidural steroid injection History of right hip replacement Hx of laparoscopy for tx endometriosis Hx of colonoscopy S/P Mohs surgery for basal cell carcinoma History of section Family History Brother Myocardial infarction Hypertension Smoker Grandmother (Maternal) Diabetes Father Hypertension Cancer bladder Stroke Myocardial infarction Mother Hypertension Asthma Congestive heart failure Myocardial infarction Sister Hypertension Eczema Denies family history of Ovarian cancer Prostate cancer Breast cancer Colorectal cancer Social History (Reviewed 02/18/25 @ 11:36 by WALI Granados Smoking Status: Never smoker Second Hand Exposure: Yes (hx growing up); Do You Dip or Chew Tobacco: No; Hx Alcohol Use: No Hx Substance Use: No Preferred Language: [place] Islander Communication Ability: Effective Visual Impairment: No Limitations Hearing Ability: Normal Social Services Required: No Beliefs That Will Affect Care: None marital status: / Current Living Situation: Alone Current Living Situation Comment: Pt lives alone current occupational status: employed 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 How many Children do You have: 1 Feels Safe at Home: Yes Safety Concerns: Feels Safe At This Time Childhood Exposure to Second-Hand Smoke: Yes Diet: regular caffeine: Yes during the past year weight has: remained stable Dental Care, Regularly: Yes Physical Activity Frequency: Daily Seatbelt Use: always Sunscreen Use: Yes Assistive Devices: Cane, Glasses and Walker Review of Systems Review of Systems: All systems reviewed & are unremarkable except as noted in HPI & below Physical Exam Constitutional: well developed; no acute distress Eyes: + anicteric sclerae; no corneal abnormal ity ENMT: Mouth: no oral mucosal abnormality and oral mucous membranes not dry Neck: normal visual inspection and trachea midline Respiratory: normal respiratory effort Auscultation: lungs clear to auscultation bilaterally Cardiovascular: Rate/Rhythm: regular rate Heart Sounds: normal S1, normal S2 and + murmur Extremities: no edema Musculoskeletal: Extremities: no cyanosis and no clubbing Skin: normal turgor; no lesions Neurologic: Motor/Sensory: no tremor and no asterixis Psychiatric: Orientation: alert and oriented x 3 Results & Data Vital Signs (Past 12 Hours) Vital Signs Temp Pulse Pulse Resp BP Pulse Ox O2 Del Method 03/10/25 09:34 94 Nasal Cannula 03/10/25 09:33 88 L Room Air 03/10/25 08:01 36.4 C L 70 16 113/65 92 Room Air 03/10/25 05:55 66 03/10/25 03:49 36.6 C 72 16 110/59 L 94 Nasal Cannula 03/09/25 23:45 36.6 C 77 17 106/58 L 94 Nasal Cannula 03/09/25 23:35 36.6 C 77 17 108/58 L 94 Nasal Cannula 03/09/25 23:35 Nasal Cannula 03/09/25 23:30 71 O2 Flow Rate 03/10/25 09:34 2 03/10/25 09:33 03/10/25 08:01 03/10/25 05:55 03/10/25 03:49 03/09/25 23:45 2 03/09/25 23:35 2 03/09/25 23:35 2 03/09/25 23:30 Laboratory Results Laboratory Results - last 24 hr 03/09/25 03/09/25 03/09/25 20:10 21:31 23:20 WBC 8.08 RBC 2.70 L Hgb 8.2 L Hct 24.7 L MCV 91.5 MCH 30.4 MCHC 33.2 RDW Std Deviation 49.2 H RDW Coeff of Rafael 14.9 H Plt Count 303 MPV 10.6 Immature Gran % (Auto) 0.5 Neut % (Auto) 79.2 Lymph % (Auto) 11.0 Nolan % (Auto) 8.3 Eos % (Auto) 0.9 Baso % (Auto) 0.1 Neut # (Auto) 6.40 Lymph # (Auto) 0.89 L Nolan # (Auto) 0.67 H Eos # (Auto) 0.07 Baso # (Auto) 0.01 Immature Gran # (Auto) 0.04 Polychromasia Ovalocytes Sodium 130 L Potassium 4.3 Chloride 96 L Carbon Dioxide 21 Anion Gap 13 H BUN 84 H Creatinine 3.82 H Est Cr Clr Drug Dosing 11.8 eGFR 11.69 BUN/Creatinine Ratio 22.0 H Glucose 87 Calcium 10.1 Magnesium Total Bilirubin 2.7 H AST 229 H ALT 417 H Alkaline Phosphatase 402 H Troponin I High Sens 30.2 H Total Protein 7.4 Albumin 3.4 Globulin 4.0 Albumin/Globulin Ratio 0.9 Lipase 21 Urine Color Dark Yellow Urine Appearance Clear Urine pH 5.0 Ur Specific Roy 1.012 Urine Protein Negative Urine Glucose (UA) Negative Urine Ketones Negative Urine Blood Negative Urine Nitrite Negative Urine Bilirubin Negative Urine Urobilinogen Negative Ur Leukocyte Esterase Trace H Urine WBC (Auto) 0-5 Urine RBC (Auto) 0-2 U Hyaline Cast (Auto) >20 H U Epithel Cells (Auto) 3-5 H Urine Bacteria (Auto) None Seen Hyaline Casts Present A Urine Comment 03/10/25 03/10/25 00:33 06:49 WBC 5.92 RBC 2.39 L Hgb 7.2 L Hct 21.8 L MCV 91.2 MCH 30.1 MCHC 33.0 RDW Std Deviation 49.0 H RDW Coeff of Rafael 14.5 Plt Count 283 MPV 10.5 Immature Gran % (Auto) 0.3 Neut % (Auto) 75.6 Lymph % (Auto) 14.0 Nolan % (Auto) 8.4 Eos % (Auto) 1.5 Baso % (Auto) 0.2 Neut # (Auto) 4.47 Lymph # (Auto) 0.83 L Nolan # (Auto) 0.50 Eos # (Auto) 0.09 Baso # (Auto) 0.01 Immature Gran # (Auto) 0.02 Polychromasia 1+ Ovalocytes 1+ Sodium 133 L Potassium 3.6 Chloride 100 Carbon Dioxide 25 Anion Gap 8 BUN 75 H Creatinine 2.48 H D Est Cr Clr Drug Dosing 17.7 eGFR 19.63 BUN/Creatinine Ratio 30.2 H Glucose 92 Calcium 9.4 Magnesium 1.8 Total Bilirubin 1.0 D AST 127 H ALT 289 H Alkaline Phosphatase 305 H Troponin I High Sens 28.5 H Total Protein 6.0 Albumin 2.8 L Globulin 3.2 Albumin/Globulin Ratio 0.9 Lipase Urine Color Urine Appearance Urine pH Ur Specific Roy Urine Protein Urine Glucose (UA) Urine Ketones Urine Blood Urine Nitrite Urine Bilirubin Urine Urobilinogen Ur Leukocyte Esterase Urine WBC (Auto) Urine RBC (Auto) U Hyaline Cast (Auto) U Epithel Cells (Auto) Urine Bacteria (Auto) Hyaline Casts Urine Comment Diagnostic Findings CT Abdomen and Pelvis Without Intravenous Contrast COMPARISON: 02/28/25 FINDINGS: Lung bases: Bibasilar subsegmental atelectasis and trace effusions. ABDOMEN: Liver: Unremarkable. Gallbladder and bile ducts: Gallbladder sludge. No calcified stones. No ductal dilation. Pancreas: Unremarkable. No ductal dilation. Spleen: Unremarkable. No splenomegaly. Adrenals: Benign left adrenal adenoma measuring 2.5 cm; no follow-up indicated. Kidneys and ureters: Unremarkable. No hydronephrosis or radiopaque stones. Stomach and bowel: Postoperative changes of the small bowel. No bowel obstruction. Fluid-filled loops of small bowel with segments of small bowel wall thickening. PELVIS: Appendix: No evidence of appendicitis. Bladder: Unremarkable. No stones. Reproductive: Unremarkable as visualized. ABDOMEN and PELVIS: Intraperitoneal space: There is edema within the small bowel mesentery without free air or, significant free fluid, or abscess. Bones/joints: Right total hip arthroplasty. Moderate osteoarthritis of the left hip. No acute fracture or dislocation. Soft tissues: Evidence of previous laparotomy with midline abdominal wall skin closure roberto. Vasculature: Atherosclerosis. No abdominal aortic aneurysm. Lymph nodes: Unremarkable. No enlarged lymph nodes. IMPRESSION: 1. Fluid-filled loops of small bowel with segments of small bowel wall thickening. Correlate for enteritis. 2. There is edema within the small bowel mesentery without free air, significant free fluid, or abscess. 3. Postoperative changes of the small bowel. No bowel obstruction. PG Care Time/CCT Total # of Minutes Spent Total Time Spent with Patient: Total time spent is greater than 50% in coordination of care (as documented) at patient's floor/unit and/or counseling patient: Coding Level of Care Code 21052 IN/OBS CONSULT LVL 4,60M Diagnoses SONI (acute kidney injury) N17.9 HTN (hypertension) I10 Lower extremity edema R60.0
--- NOTE | 2025-03-10 10:16 | Hospitalist Progress Note ---
Date of Service March 10, 2025 Assessment & Plan (1) Transaminitis: Plan: CTA/P without evidence of CBD dilation or gallbladder abnormality. DDx includes shock liver/hypoperfusion Bladder ultrasound ordered to follow-up on obstructive pattern LFTs If LFTs are rising follow-up with MRCP. Does have surgical roberto in place however should be MRI safe if needed. Roberto are due to be removed next week Trend LFTs - Today 03/10 LFTs trending downward (2) Weakness: Plan: Diarrheal illness With evidence of enteritis on CT Liquid stool for a few days this is starting to become more formed Stool studies/C. difficile pending Supportive care. No evidence for antibiotic treatment at time of admission Recent Gastric Perf /Fistula s/p surgical repair - Surgical site C/D/I. CT-A/P without abscess/complications. Evidence of possible enteritis - No leukocytosis Advance daily, monitor clinically -con't IVF (3) Acute on chronic diastolic (congestive) heart failure: Plan: Echo 06/2024: LVEF 65 to 70%, no regional wall motion abnormalities Clinically volume contracted with the exception of ankle edema suspected due to venous stasis Admitting EKG normal sinus rhythm, incomplete right bundle branch block similar to prior without territorial ischemic changes Troponin 30.2, trended. No chest pain. Suspect demand. Following medical telemetry - bumex on hold (4) SONI (acute kidney injury): Plan: Suspect prerenal with poor p.o. intake, continued Bumex use, and diarrhea Does have lower extremity edema however also has a venous stasis component. Lungs are clear to auscultation S/p 500 cc in the ER. Blood pressure fluid responsive, decreases after boluses manage 1 L additional bolus ordered, followed by 1 L at maintenance Hold Bumex Renally dose medications as needed - cr improving with IVF -nephrology consulted Plan Gisela is a 74-year-old female with recent perforated gastric ulcer s/p emergent repair complicated by fistula formation with subsequent revision at [facility] who presents with fatigue, weakness, poor p.o. intake and SONI. She was recently discharged home however since that time has had poor intake and had a few days of liquid diarrhea which has subsequently resolved. Admission and Anticipated Discharge Date Admission Date: March 09, 2025 Subjective No events overnight. Pt resting in bed. She is tolerating her diet this am. Review of Systems Review of Systems: CONST: Negative for fever, body aches and chills. HENT: Negative for neck pain/stiffness, headache, congestion, sore throat, swelling. EYES: Negative for discharge/pain or vision changes. RESP: Negative for cough/hemoptysis and shortness of breath. CV: Negative chest pain, difficulty breathing, palpitations. ABD: Negative pain, nausea, vomiting. : Negative increase frequency, dysuria, blood in urine or stool. MUSC: Negative for muscle aches, edema. SKIN: Negative rash, lesions/sores. NEURO: Negative headache, dizziness, weakness. Physical Exam Physical Exam: GENERAL APPEARANCE NAD, activity normal for age, well developed/ well nourished, no cyanosis, pallor, or diaphoresis. EYES lids/conjunctiva normal. EARS/NOSE/THROAT Mucous membranes moist, nares normal, lips/teeth normal uvula midline without oral pharyngeal erythema, exudate or swelling TMs normal bilaterally. No lymphangitis/lymphedema. HEAD/NECK normocephalic atraumatic, no facial trauma, neck is supple. RESPIRATORY respiratory effort normal, speaks in full sentences, no tripod position, no accessory muscle use. Lungs clear to auscultation without rhonchi, wheezes, rales CARDIAC Regular rate and rhythm, no edema. ABDOMINAL Soft, ND/NT. No evidence of fluid wave. No pulsatile masses on exam, rebound tenderness, Rutherford sign or pain over Mcburney's point. MUSCLES/EXTREMITIES No abnormal range of motion, no swelling. SKIN Warm, pink and dry. No rashes, dermatoses, petechiae or lesions. NEUROLOGICAL Speech is clear and appropriate. Normal level of consciousness. Gait and coordination are normal. 5/5 strength in all extremities. PSYCH Normal mood and affect. Judgement/competence is appropriate Results & Data Results & Data Vital Signs (Past 12 Hours) Vital Signs Temp Pulse Pulse Resp BP Pulse Ox O2 Del Method 03/10/25 09:34 94 Nasal Cannula 03/10/25 09:33 88 L Room Air 03/10/25 08:01 36.4 C L 70 16 113/65 92 Room Air 03/10/25 05:55 66 03/10/25 03:49 36.6 C 72 16 110/59 L 94 Nasal Cannula 03/09/25 23:45 36.6 C 77 17 106/58 L 94 Nasal Cannula 03/09/25 23:35 36.6 C 77 17 108/58 L 94 Nasal Cannula 03/09/25 23:35 Nasal Cannula 03/09/25 23:30 71 O2 Flow Rate 03/10/25 09:34 2 03/10/25 09:33 03/10/25 08:01 03/10/25 05:55 03/10/25 03:49 03/09/25 23:45 2 03/09/25 23:35 2 03/09/25 23:35 2 03/09/25 23:30 PG Care Time/CCT Total # of Minutes Spent Total Time Spent with Patient: Total time spent is greater than 50% in coordination of care (as documented) at patient's floor/unit and/or counseling patient: Coding Level of Care Code 70919 SUB INP/OBS CARE 2/35MIN Diagnoses Transaminitis R74.01 Weakness R53.1 Acute on chronic diastolic (congestive) heart failure I50.33 SONI (acute kidney injury) N17.9
[2025-03-10] MEDS: LACTATED RINGER'S 1,000 ML IV SCH (12:10)
[2025-03-10] MEDS: SENNA 8.6 MG TAB PO SCH (13:35)
[2025-03-10] MEDS: DOCUSATE SODIUM 100 MG CAP PO SCH (13:35)
--- NOTE | 2025-03-10 13:53 | Electrocardiogram Report ---
Test Reason : Blood Pressure : */* mmHG Vent. Rate : 72 BPM Atrial Rate : 72 BPM P-R Int : 164 ms QRS Dur : 100 ms QT Int : 400 ms P-R-T Axes : 31 -25 5 degrees QTcB Int : 438 ms Normal sinus rhythm Incomplete right bundle branch block Borderline ECG When compared with ECG of 28-Feb-2025 19:40, No significant change was found Confirmed by Marcelino Piper ([id number]) on 03/10/2025 1:52:51 PM Referred By: REFERRED SELF Confirmed By: Marcelino Piper
[2025-03-10 18:06] LABS: Adenovirus F 40/41 PCR Not Detected (NotDetected); Astrovirus PCR Not Detected (NotDetected); Campylobacter PCR Not Detected (NotDetected); Cryptosporidium PCR Not Detected (NotDetected); Cyclospora cayetanensis PCR Not Detected (NotDetected); Entamoeba histolytica PCR Not Detected (NotDetected); Enteroaggregative E.coli(EAEC) Not Detected (NotDetected); Enteropathogenic E.coli (EPEC) Not Detected (NotDetected); Enterotoxigenic E.coli (ETEC) Not Detected (NotDetected); Giardia lamblia PCR Not Detected (NotDetected); Norovirus GI/GII PCR Not Detected (NotDetected); Plesiomonas shigelloides PCR Not Detected (NotDetected); Rotavirus A PCR Not Detected (NotDetected); Salmonella PCR Not Detected (NotDetected); Sapovirus PCR Not Detected (NotDetected); Shiga-like Toxin E.coli (STEC) Not Detected (NotDetected); Shigella/Enteroinvasive E.coli Not Detected (NotDetected); Vibrio cholerae PCR Not Detected (NotDetected); Vibrio species PCR Not Detected (NotDetected); Yersinia enterocolitica PCR Not Detected (NotDetected)
[2025-03-10] MEDS: PRAMIPEXOLE DIHYDROCHLO 0.5 MG TAB PO SCH (20:13)
[2025-03-11 07:41] LABS: Basophils # (auto) 0.01 K/uL (0.00-0.20); Basophils % (auto) 0.3 %; Eosinophils # (auto) 0.07 K/uL (0.00-0.50); Eosinophils % (auto) 1.8 %; Hematocrit (blood only) 22.4 % (37.0-47.0); Hemoglobin 7.4 g/dl (12.0-16.0); Immature Granulocytes # (auto) 0.01 K/uL (0.01-0.20); Immature Granulocytes % (auto) 0.3 %; Lymphocytes # (auto) 0.91 K/uL (1.20-3.40); Lymphocytes % (auto) 23.9 %; Mean Corpuscular Hemoglobin 30.6 pg (25.0-34.0); Mean Corpuscular Volume 92.6 fL (80.0-100.0); Monocytes # (auto) 0.44 K/uL (0.11-0.59); Monocytes % (auto) 11.6 %; Neutrophils # (auto) 2.36 K/uL (1.40-6.50); Neutrophils % (auto) 62.1 %; Platelet Count 315 K/uL (130-400); RDW Coefficient of Variation 14.8 % (11.5-14.5); RDW Standard Deviation 49.9 fL (36.4-46.3); Red Blood Count 2.42 M/uL (4.20-5.40)
[2025-03-11 08:21] LABS: Polychromasia 1+
[2025-03-11 08:44] LABS: Albumin Globulin Ratio 0.9 (0.9-2); Albumin Level 2.9 gm/dl (3.4-5.0); BUN Creatinine Ratio 36.6 (10-20); Bilirubin Direct 0.3 mg/dl (0-0.2); Bilirubin,Total 0.8 mg/dl (0.2-1.0); Calcium 9.5 mg/dl (8.6-10.3); Creatinine Clr Calc Pharmacy 36.3 ml/min; Globulin 3.1 gm/dl (2.5-4.0); Potassium 3.4 mmol/L (3.5-5.1)
--- NOTE | 2025-03-11 10:27 | Hospitalist Progress Note ---
Date of Service March 11, 2025 Assessment & Plan (1) Transaminitis: Plan: CTA/P without evidence of CBD dilation or gallbladder abnormality. DDx includes shock liver/hypoperfusion Bladder ultrasound ordered to follow-up on obstructive pattern LFTs If LFTs are rising follow-up with MRCP. Does have surgical roberto in place however should be MRI safe if needed. Roberto are due to be removed next week Trend LFTs - LFTs trending downward (2) Weakness: Plan: Diarrheal illness With evidence of enteritis on CT Liquid stool for a few days this is starting to become more formed Stool studies/C. difficile pending Supportive care. No evidence for antibiotic treatment at time of admission Recent Gastric Perf /Fistula s/p surgical repair - Surgical site C/D/I. CT-A/P without abscess/complications. Evidence of possible enteritis - No leukocytosis Advance daily, monitor clinically -con't IVF -will advance diet to regular today (3) Acute on chronic diastolic (congestive) heart failure: Plan: Echo 06/2024: LVEF 65 to 70%, no regional wall motion abnormalities Clinically volume contracted with the exception of ankle edema suspected due to venous stasis Admitting EKG normal sinus rhythm, incomplete right bundle branch block similar to prior without territorial ischemic changes Troponin 30.2, trended. No chest pain. Suspect demand. Following medical telemetry - bumex on hold (4) SONI (acute kidney injury): Plan: Suspect prerenal with poor p.o. intake, continued Bumex use, and diarrhea Does have lower extremity edema however also has a venous stasis component. Lungs are clear to auscultation S/p 500 cc in the ER. Blood pressure fluid responsive, decreases after boluses manage 1 L additional bolus ordered, followed by 1 L at maintenance Hold Bumex Renally dose medications as needed - cr improving with IVF -nephrology consult appreciated -cr 1.23 today Plan Gisela is a 74-year-old female with recent perforated gastric ulcer s/p emergent repair complicated by fistula formation with subsequent [place] [facility] who presents with fatigue, weakness, poor p.o. intake and SONI. She was recently discharged home however since that time has had poor intake and had a few days of liquid diarrhea which has subsequently resolved. Admission and Anticipated Discharge Date Admission Date: March 09, 2025 Subjective No events overnight, pt tolerating diet. Review of Systems Review of Systems: CONST: Negative for fever, body aches and chills. HENT: Negative for neck pain/stiffness, headache, congestion, sore throat, swelling. EYES: Negative for discharge/pain or vision changes. RESP: Negative for cough/hemoptysis and shortness of breath. CV: Negative chest pain, difficulty breathing, palpitations. ABD: Negative pain, nausea, vomiting. : Negative increase frequency, dysuria, blood in urine or stool. MUSC: Negative for muscle aches, edema. SKIN: Negative rash, lesions/sores. NEURO: Negative headache, dizziness, weakness. Physical Exam Physical Exam: GENERAL APPEARANCE NAD, activity normal for age, well developed/ well nourished, no cyanosis, pallor, or diaphoresis. EYES lids/conjunctiva normal. EARS/NOSE/THROAT Mucous membranes moist, nares normal, lips/teeth normal uvula midline without oral pharyngeal erythema, exudate or swelling TMs normal bilaterally. No lymphangitis/lymphedema. HEAD/NECK normocephalic atraumatic, no facial trauma, neck is supple. RESPIRATORY respiratory effort normal, speaks in full sentences, no tripod position, no accessory muscle use. Lungs clear to auscultation without rhonchi, wheezes, rales CARDIAC Regular rate and rhythm, no edema. ABDOMINAL Soft, ND/NT. No evidence of fluid wave. No pulsatile masses on exam, rebound tenderness, Rutherford sign or pain over Mcburney's point. MUSCLES/EXTREMITIES No abnormal range of motion, no swelling. SKIN Warm, pink and dry. No rashes, dermatoses, petechiae or lesions. NEUROLOGICAL Speech is clear and appropriate. Normal level of consciousness. Gait and coordination are normal. 5/5 strength in all extremities. PSYCH Normal mood and affect. Judgement/competence is appropriate Results & Data Results & Data Vital Signs (Past 12 Hours) Vital Signs Temp Pulse Pulse Resp BP BP Pulse Ox 03/11/25 08:16 36.6 C 64 16 136/79 95 03/11/25 05:59 61 03/11/25 03:19 36.7 C 66 16 156/75 H 95 03/10/25 23:31 36.7 C 74 16 104/62 95 O2 Del Method O2 Flow Rate 03/11/25 08:16 Room Air 03/11/25 05:59 03/11/25 03:19 Room Air 03/10/25 23:31 Nasal Cannula 2 PG Care Time/CCT Total # of Minutes Spent Total Time Spent with Patient: Total time spent is greater than 50% in coordination of care (as documented) at patient's floor/unit and/or counseling patient: Coding Level of Care Code 23027 SUB INP/OBS CARE 2/35MIN Diagnoses Transaminitis R74.01 Weakness R53.1 Acute on chronic diastolic (congestive) heart failure I50.33 SONI (acute kidney injury) N17.9
--- NOTE | 2025-03-11 13:03 | Nephrology Progress Note ---
Date of Service March 11, 2025 Assessment & Plan (1) SONI (acute kidney injury): Plan: Attributed to dehydration. Creatinine continues to improve. Volume status acceptable. Diet is being advance. Tolerating adequate PO intake. IVF will be stopped once current bag is complete. Hold Bumex. Document strict I/O's. Repeat metabolic profile tomorrow AM. Medications are appropriate for kidney function. (2) HTN (hypertension): Plan: BP acceptable. Euvolemic. Continue carvedilol per home Rx. (3) Lower extremity edema: Plan: Attributed to venous insufficiency. Continue feet elevation and compression stocking use. Hold Bumex. Admission and Anticipated Discharge Date Admission Date: March 09, 2025 Subjective No acute events overnight. Gisela is resting comfortably in bed this AM. Diarrhea has improved. She denies melena or hematochezia. No fevers or chills. She describes ongoing abdominal discomfort and poor appetite. She continues to struggle with some nausea. She denies abdominal pain. PO intake improving and tolerating oral fluids. Review of Systems Review of Systems: All systems reviewed & are unremarkable except as noted in HPI & below Physical Exam Constitutional: well developed; no acute distress Eyes: + anicteric sclerae; no corneal abnormal ity ENMT: Mouth: no oral mucosal abnormality and oral mucous membranes not dry Neck: normal visual inspection and trachea midline Respiratory: normal respiratory effort Auscultation: lungs clear to au scultation bilaterally Cardiovascular: Rate/Rhythm: regular rate Heart Sounds: normal S1, normal S2 and + murmur Extremities: + pedal edema Musculoskeletal: Extremities: no cyanosis and no clubbing Skin: normal turgor; no lesions Neurologic: Motor/Sensory: no tremor and no asterixis Psychiatric: Orientation: alert and oriented x 3 Results & Data Vital Signs (Past 12 Hours) Vital Signs Temp Pulse Pulse Resp BP BP Pulse Ox 03/11/25 11:52 36.6 C 63 16 148/77 H 94 03/11/25 10:32 03/11/25 08:16 36.6 C 64 16 136/79 95 03/11/25 05:59 61 03/11/25 03:19 36.7 C 66 16 156/75 H 95 O2 Del Method 03/11/25 11:52 Room Air 03/11/25 10:32 Room Air 03/11/25 08:16 Room Air 03/11/25 05:59 03/11/25 03:19 Room Air Laboratory Results Laboratory Results - last 24 hr 03/10/25 03/11/25 16:29 06:53 WBC 3.80 L RBC 2.42 L Hgb 7.4 L Hct 22.4 L MCV 92.6 MCH 30.6 MCHC 33.0 RDW Std Deviation 49.9 H RDW Coeff of Rafael 14.8 H Plt Count 315 MPV 11.0 Immature Gran % (Auto) 0.3 Neut % (Auto) 62.1 Lymph % (Auto) 23.9 [place] % (Auto) 11.6 Eos % (Auto) 1.8 Baso % (Auto) 0.3 Neut # (Auto) 2.36 Lymph # (Auto) 0.91 L [place] # (Auto) 0.44 Eos # (Auto) 0.07 Baso # (Auto) 0.01 Immature Gran # (Auto) 0.01 Polychromasia 1+ Sodium 136 Potassium 3.4 L Chloride 104 Carbon Dioxide 25 Anion Gap 7 BUN 45 H D Creatinine 1.23 H D Est Cr Clr Drug Dosing 36.3 eGFR 45.54 BUN/Creatinine Ratio 36.6 H Glucose 87 Calcium 9.5 Total Bilirubin 0.8 Direct Bilirubin 0.3 H AST 75 H ALT 208 H Alkaline Phosphatase 301 H Total Protein 6.0 Albumin 2.9 L Globulin 3.1 Albumin/Globulin Ratio 0.9 Stl C. cayetanensis PCR Not Detected Stool Rotavirus A PCR Not Detected Stl Adenov F 40/41 PCR Not Detected Stool Astrovirus (PCR) Not Detected Stool Campylobacter PCR Not Detected Stl C. diff Tox B Gene Negative Cdiff Gene Stool Cryptosporidium PCR Not Detected Stl E.coli Shiga Tox PCR Not Detected Stl Enterotoxigenic E PCR Not Detected Stool EPEC (PCR) Not Detected Stool EAEC (PCR) Not Detected Stl E. histolytica PCR Not Detected Stool Giardia Lamblia PCR Not Detected Stool Salmonella PCR Not Detected Stool Sapovirus (PCR) Not Detected Stl P. shigelloides PCR Not Detected Stl Shigella/EIEC PCR Not Detected St Y.enterocolitica PCR Not Detected Stool Vibrio (PCR) Not Detected Stl Vibrio cholerae PCR Not Detected Stl Norovirus GI/GII PCR Not Detected PG Care Time/CCT Total # of Minutes Spent Total Time Spent with Patient: Total time spent is greater than 50% in coordination of care (as documented) at patient's floor/unit and/or counseling patient: Coding Level of Care Code 59652 SUB INP/OBS CARE 350MIN Diagnoses SONI (acute kidney injury) N17.9 HTN (hypertension) I10 Lower extremity edema R60.0
[2025-03-11] MEDS: MELATONIN 3 MG TAB PO PRN (20:37)
[2025-03-12] MEDS: ONDANSETRON INJ 2 MG/ML 2 ML VIAL IV PRN (00:46)
[2025-03-12 08:04] LABS: Basophils # (auto) 0.01 K/uL (0.00-0.20); Basophils % (auto) 0.2 %; Eosinophils # (auto) 0.09 K/uL (0.00-0.50); Eosinophils % (auto) 1.7 %; Hematocrit (blood only) 23.5 % (37.0-47.0); Hemoglobin 7.7 g/dl (12.0-16.0); Immature Granulocytes # (auto) 0.02 K/uL (0.01-0.20); Immature Granulocytes % (auto) 0.4 %; Lymphocytes # (auto) 1.03 K/uL (1.20-3.40); Lymphocytes % (auto) 19.3 %; Mean Corpuscular Hemoglobin 30.4 pg (25.0-34.0); Mean Corpuscular Hgb Conc 32.8 g/dL (32.0-36.0); Mean Corpuscular Volume 92.9 fL (80.0-100.0); Mean Platelet Volume 10.6 fL (9.4-12.4); Monocytes # (auto) 0.68 K/uL (0.11-0.59); Monocytes % (auto) 12.8 %; Neutrophils % (auto) 65.6 %; Platelet Count 328 K/uL (130-400); RDW Coefficient of Variation 14.5 % (11.5-14.5); RDW Standard Deviation 49.4 fL (36.4-46.3); Red Blood Count 2.53 M/uL (4.20-5.40); White Blood Count 5.33 K/ul (4.8-10.8)
[2025-03-12 08:26] LABS: RBC Morphology Unremarkable
[2025-03-12] MEDS: ATORVASTATIN 10 MG TAB PO SCH (08:31)
[2025-03-12 08:35] LABS: Albumin Globulin Ratio 0.9 (0.9-2); Albumin Level 2.9 gm/dl (3.4-5.0); BUN Creatinine Ratio 20.7 (10-20); Bilirubin,Total 0.7 mg/dl (0.2-1.0); Calcium 9.6 mg/dl (8.6-10.3); Creatinine Clr Calc Pharmacy 41.1 ml/min; Globulin 3.1 gm/dl (2.5-4.0); Potassium 3.7 mmol/L (3.5-5.1)
--- NOTE | 2025-03-12 09:37 | Hospitalist Progress Note ---
Date of Service March 12, 2025 Assessment & Plan (1) Transaminitis: Plan: CTA/P without evidence of CBD dilation or gallbladder abnormality. DDx includes shock liver/hypoperfusion Bladder ultrasound ordered to follow-up on obstructive pattern LFTs If LFTs are rising follow-up with MRCP. Does have surgical roberto in place however should be MRI safe if needed. Roberto are due to be removed next week Trend LFTs - LFTs trending downward (2) Weakness: Plan: Diarrheal illness With evidence of enteritis on CT Liquid stool for a few days this is starting to become more formed Stool studies/C. difficile pending Supportive care. No evidence for antibiotic treatment at time of admission Recent Gastric Perf /Fistula s/p surgical repair - Surgical site C/D/I. CT-A/P without abscess/complications. Evidence of possible enteritis - No leukocytosis Advance daily, monitor clinically -IVF d/c'd -Pt on regular diet, slow to tolerate -will observe today (3) Acute on chronic diastolic (congestive) heart failure: Plan: Echo 06/2024: LVEF 65 to 70%, no regional wall motion abnormalities Clinically volume contracted with the exception of ankle edema suspected due to venous stasis Admitting EKG normal sinus rhythm, incomplete right bundle branch block similar to prior without territorial ischemic changes Troponin 30.2, trended. No chest pain. Suspect demand. Following medical telemetry - bumex on hold (4) SONI (acute kidney injury): Plan: Suspect prerenal with poor p.o. intake, continued Bumex use, and diarrhea Does have lower extremity edema however also has a venous stasis component. Lungs are clear to auscultation S/p 500 cc in the ER. Blood pressure fluid responsive, decreases after boluses manage 1 L additional bolus ordered, followed by 1 L at maintenance Hold Bumex Renally dose medications as needed - cr improving with IVF -nephrology consult appreciated -cr 1.11 today Plan Gisela is a 74-year-old female with recent perforated gastric ulcer s/p emergent repair complicated by fistula formation with subsequent revision at [facility] [place] who presents with fatigue, weakness, poor p.o. intake and SONI. She was recently discharged home however since that time has had poor intake and had a few days of liquid diarrhea which has subsequently resolved. PT requesting additional home health services, case managment to follow up today. Admission and Anticipated Discharge Date Admission Date: March 09, 2025 Subjective Pt states she had some abdominal pain after being placed on regular diet. Review of Systems Review of Systems: CONST: Negative for fever, body aches and chills. HENT: Negative for neck pain/stiffness, headache, congestion, sore throat, swelling. EYES: Negative for discharge/pain or vision changes. RESP: Negative for cough/hemoptysis and shortness of breath. CV: Negative chest pain, difficulty breathing, palpitations. ABD: Negative pain, nausea, vomiting. : Negative increase frequency, dysuria, blood in urine or stool. MUSC: Negative for muscle aches, edema. SKIN: Negative rash, lesions/sores. NEURO: Negative headache, dizziness, weakness. Physical Exam Physical Exam: GENERAL APPEARANCE NAD, activity normal for age, well developed/ well nourished, no cyanosis, pallor, or diaphoresis. EYES lids/conjunctiva normal. EARS/NOSE/THROAT Mucous membranes moist, nares normal, lips/teeth normal uvula midline without oral pharyngeal erythema, exudate or swelling TMs normal bilaterally. No lymphangitis/lymphedema. HEAD/NECK normocephalic atraumatic, no facial trauma, neck is supple. RESPIRATORY respiratory effort normal, speaks in full sentences, no tripod p osition, no accessory muscle use. Lungs clear to auscultation without rhonchi, wheezes, rales CARDIAC Regular rate and rhythm, no edema. ABDOMINAL Soft, ND/NT. No evidence of fluid wave. No pulsatile masses on exam, rebound tenderness, Rutherford sign or pain over Mcburney's point. MUSCLES/EXTREMITIES No abnormal range of motion, no swelling. SKIN Warm, pink and dry. No rashes, dermatoses, petechiae or lesions. NEUROLOGICAL Speech is clear and appropriate. Normal level of consciousness. Gait and coordination are normal. 5/5 strength in all extremities. PSYCH Normal mood and affect. Judgement/competence is appropriate Results & Data Results & Data Vital Signs (Past 12 Hours) Vital Signs Temp Pulse Pulse Pulse Resp BP Pulse Ox 03/12/25 07:49 36.7 C 82 18 170/75 H 91 03/12/25 07:00 60 03/12/25 03:48 37 C 70 16 163/79 H 93 03/11/25 23:35 36.7 C 70 18 175/75 H 90 05/18/25 23:00 03/11/25 21:41 72 O2 Del Method 03/12/25 07:49 Room Air 03/12/25 07:00 03/12/25 03:48 Room Air 03/11/25 23:35 Room Air 03/11/25 23:00 Room Air 03/11/25 21:41 PG Care Time/CCT Total # of Minutes Spent Total Time Spent with Patient: Total time spent is greater than 50% in coordination of care (as documented) at patient's floor/unit and/or counseling patient: Coding Level of Care Code 65287 SUB INP/OBS CARE 2/35MIN Diagnoses Transaminitis R74.01 Weakness R53.1 Acute on chronic diastolic (congestive) heart failure I50.33 SONI (acute kidney injury) N17.9
--- NOTE | 2025-03-12 09:51 | Nephrology Progress Note ---
Date of Service March 12, 2025 Assessment & Plan (1) SONI (acute kidney injury): Plan: Attributed to dehydration. Creatinine normalized. Volume status acceptable. Continue to hold Bumex and avoid diuretics pending additional monitoring. No other nephrology recommendations at this time. I will sign-off. Please call with questions or concerns. (2) HTN (hypertension): Plan: BP acceptable. Euvolemic. Diuretics not required at this time. (3) Lower extremity edema: Plan: Attributed to venous insufficiency. Continue feet elevation and compression stocking use. Admission and Anticipated Discharge Date Admission Date: March 09, 2025 Tika Higgins reports some abdominal discomfort, bloating, and nausea overnight. Symptoms improved with Zofran. She describes pain in her right upper quadrant which made it difficult to sleep. Symptoms have improved. Abdominal discomfort appears to have been triggered by advancing to a regular diet. She had 2 bowel movements yesterday. The first was somewhat formed and the second was liquid stool. No BM this AM. No melena or hematochezia. Abdomen is benign this AM. Rubens is tolerating fluids well. She does not endorse significant fluid retention or edema. Review of Systems Review of Systems: All systems reviewed & are unremarkable except as noted in HPI & below Physical Exam Constitutional: well developed; no acute distress Eyes: + anicteric sclerae; no corneal abnormal ity ENMT: Mouth: no oral mucosal abnormality and oral mucous membranes not dry Neck: normal visual inspection and trachea midline Respiratory: normal respiratory effort Auscultation: lungs clear to auscultation bilaterally Cardiovascular: Rate/Rhythm: regular rate Heart Sounds: normal S1, normal S2 and + murmur Extremities: + pedal edema Musculoskeletal: Extremities: no cyanosis and no clubbing Skin: normal turgor; no lesions Neurologic: Motor/Sensory: no tremor and no asterixis Psychiatric: Orientation: alert and oriented x 3 Results & Data Vital Signs (Past 12 Hours) Vital Signs Temp Pulse Pulse Pulse Resp BP Pulse Ox 03/12/25 07:49 36.7 C 82 18 170/75 H 91 03/12/25 07:00 60 03/12/25 03:48 37 C 70 16 163/79 H 93 03/11/25 23:35 36.7 C 70 18 175/75 H 90 03/11/25 23:00 O2 Del Method 03/12/25 07:49 Room Air 03/12/25 07:00 03/12/25 03:48 Room Air 03/11/25 23:35 Room Air 03/11/25 23:00 Room Air Laboratory Results Laboratory Results - last 24 hr 03/12/25 07:16 WBC 5.33 RBC 2.53 L Hgb 7.7 L Hct 23.5 L MCV 92.9 MCH 30.4 MCHC 32.8 RDW Std Deviation 49.4 H RDW Coeff of Rafael 14.5 Plt Count 328 MPV 10.6 Immature Gran % (Auto) 0.4 Neut % (Auto) 65.6 Lymph % (Auto) 19.3 [place] % (Auto) 12.8 Eos % (Auto) 1.7 Baso % (Auto) 0.2 Neut # (Auto) 3.50 Lymph # (Auto) 1.03 L [place] # (Auto) 0.68 H Eos # (Auto) 0.09 Baso # (Auto) 0.01 Immature Gran # (Auto) 0.02 RBC Morphology Unremarkable Sodium 137 Potassium 3.7 Chloride 104 Carbon Dioxide 29 Anion Gap 4 BUN 23 D Creatinine 1.11 Est Cr Clr Drug Dosing 41.1 eGFR 51.51 BUN/Creatinine Ratio 20.7 H Glucose 95 Calcium 9.6 Total Bilirubin 0.7 AST 42 H ALT 144 H Alkaline Phosphatase 250 H Total Protein 6.0 Albumin 2.9 L Globulin 3.1 Albumin/Globulin Ratio 0.9 PG Care Time/CCT Total # of Minutes Spent Total Time Spent with Patient: Total time spent is greater than 50% in coordination of care (as documented) at patient's floor/unit and/or counseling patient: Coding Level of Care Code 38294 SUB INP/OBS CARE 3/50MIN Diagnoses SONI (acute kidney injury) N17.9 HTN (hypertension) I10 Lower extremity edema R60.0
[2025-03-12] MEDS: POLYETHYLENE (MIRALAX) 17 GM PACK PO PRN (13:29)
[2025-03-13 06:31] LABS: Hematocrit (blood only) 22.9 % (37.0-47.0); Hemoglobin 7.5 g/dl (12.0-16.0); Mean Corpuscular Hemoglobin 30.4 pg (25.0-34.0); Mean Corpuscular Hgb Conc 32.8 g/dL (32.0-36.0); Mean Corpuscular Volume 92.7 fL (80.0-100.0); Mean Platelet Volume 10.7 fL (9.4-12.4); Platelet Count 295 K/uL (130-400); RDW Coefficient of Variation 14.1 % (11.5-14.5); RDW Standard Deviation 47.8 fL (36.4-46.3); Red Blood Count 2.47 M/uL (4.20-5.40); White Blood Count 5.07 K/ul (4.8-10.8)
[2025-03-13 06:59] LABS: BUN Creatinine Ratio 16.9 (10-20); Calcium 9.5 mg/dl (8.6-10.3); Creatinine Clr Calc Pharmacy 51.5 ml/min; Potassium 3.6 mmol/L (3.5-5.1)
--- NOTE | 2025-03-13 09:48 | Discharge Summary ---
Discharge Summary Date of Service March 13, 2025 Principal Dx & Hospital Course #1 = Principal Diagnosis (1) Transaminitis: CTA/P without evidence of CBD dilation or gallbladder abnormality. DDx includes shock liver/hypoperfusion Bladder ultrasound ordered to follow-up on obstructive pattern LFTs If LFTs are rising follow-up with MRCP. Does have surgical fang in place however should be MRI safe if needed. Fang are due to be removed next week Trend LFTs - LFTs trending downward (2) Weakness: Diarrheal illness With evidence of enteritis on CT Liquid stool for a few days this is starting to become more formed Stool studies/C. difficile pending Supportive care. No evidence for antibiotic treatment at time of admission Recent Gastric Perf /Fistula s/p surgical repair - Surgical site C/D/I. CT-A/P without abscess/complications. Evidence of possible enteritis - No leukocytosis Advance daily, monitor clinically -IVF d/c'd -Pt on regular diet, slow to tolerate -will observe today (3) Acute on chronic diastolic (congestive) heart failure: Echo 06/2024: LVEF 65 to 70%, no regional wall motion abnormalities Clinically volume contracted with the exception of ankle edema suspected due to venous stasis Admitting EKG normal sinus rhythm, incomplete right bundle branch block similar to prior without territorial ischemic changes Troponin 30.2, trended. No chest pain. Suspect demand. Following medical telemetry - bumex on hold (4) SONI (acute kidney injury): Suspect prerenal with poor p.o. intake, continued Bumex use, and diarrhea Does have lower extremity edema however also has a venous stasis component. Lungs are clear to auscultation S/p 500 cc in the ER. Blood pressure fluid responsive, decreases after boluses manage 1 L additional bolus ordered, followed by 1 L at maintenance Hold Bumex Renally dose medications as needed - cr improving with IVF -nephrology consult appreciated -cr 1.11 today Plan Gisela is a 74-year-old female with recent perforated gastric ulcer s/p emergent repair complicated by fistula formation with subsequent revision at [facility] [place] who presents with fatigue, weakness, poor p.o. intake and SONI. She was recently discharged home however since that time has had poor intake and had a few days of liquid diarrhea which has subsequently resolved. PT requesting additional home health services, case managment to follow up today. Admission HPI Per Admitting Provider Seen at bedside in conjunction with PA. Gisela koenig she initially was seen a few months ago for a perforated gastric ulcer. This was treated with emergent surgery; however she had complications including a fistula development which required surgical intervention at [facility] [place]. Was transiently on TPN until 02/21 when she has intervention on her fistula which was successful at the time. TPN was discontinued February 25. Was discharged and had some initial diarrhea followed by some constipation earlier in the month. She was seen in the ER and was diagnosed with an ileus, was discharged this past Wednesday and she felt much better at that time and was having regular BMs. After returning ashlie efelt constipation, with poor appetite, and nausea again. Overall felt poorly and tired. Had blood work as an outpatient which showed elevated kidney numbers and came back in and feels generally weak all over. Also notes disappointment that insurance did not cover rehab as she felt better this past Wednesday but did not every really feel back to her baseline. Denies abdominal pain Last BM earlier today, 4-5 BMs loose but not liquid anymore. Liquid diarrhea earlier in the week which has some more texture/become loose last few BMs. Notes while on TPN had almost no recatl BMs for 4 months and knew it would take some time to adjust. BMs brown, nothing bloody/black No fevers or chills no chest pain or dyspnea Nausea improved at time of admitting assessment, but has had nausea intermittently last few days +lightheaded this morning. +itchy all over. BSG 84. Normally gets intermittent iching Took medicines today. Took oxycodone for hip arthritis. Using voltarin Peeing normally. Takes a diurutic. Feet had been a little swollen earlier in the week. Urine has not changed color, still generally light. Denies orthopnea Medical History: Reviewed Medications: Reviewed Surgical History: Reviewed Family history: Reviewed Allergies: Reviewed. Anaphylaxis to PCN, myalgias with Cipro and Statins Social History:No tobacco product use, no ETOH use Code Status: Surrogate DM would be her son Silvano Chase. Full Code Discharge Exam GENERAL APPEARANCE NAD, activity normal for age, well developed/ well nourished, no cyanosis, pallor, or diaphoresis. EYES lids/conjunctiva normal. EARS/NOSE/THROAT Mucous membranes moist, nares normal, lips/teeth normal uvula midline without oral pharyngeal erythema, exudate or swelling TMs normal bilaterally. No lymphangitis/lymphedema. HEAD/NECK normocephalic atraumatic, no facial trauma, neck is supple. RESPIRATORY respiratory effort normal, speaks in full sentences, no tripod position, no accessory muscle use. Lungs clear to auscultation without rhonchi, wheezes, rales CARDIAC Regular rate and rhythm, no edema. ABDOMINAL Soft, ND/NT. No evidence of fluid wave. No pulsatile masses on exam, rebound tenderness, Rutherford sign or pain over Mcburney's point. MUSCLES/EXTREMITIES No abnormal range of motion, no swelling. SKIN Warm, pink and dry. No rashes, dermatoses, petechiae or lesions. NEUROLOGICAL Speech is clear and appropriate. Normal level of consciousness. Gait and coordination are normal. 5/5 strength in all extremities. PSYCH Normal mood and affect. Judgement/competence is appropriate Discharge Plan Discharge Items Patient Disposition: Home - Self-Care Reason For Visit: TRANSAMINITIS, SONI Discharge Diagnosis: transaminitis, SONI Condition on Discharge: Fair Activity: Resume your previous activity Non-emergency contact: Primary Care Provider Call non-emergency contact if: you have any medication questions Follow-up/Referrals: Mychal Hall MD [Primary Care Provider] - Diet: Regular Addtl Attending Provider Instructions: Follow up with PMD in 2 weeks Pending Studies at Discharge: No Stand-Alone Forms: My [facility] [employer], Smoking Cessation Medications and DC Order Prescriptions: Continued allopurinol 100 mg tablet 100 mg PO HS Qty: 90 3RF pramipexole 0.5 mg tablet 0.5 mg PO HS Qty: 90 3RF Rx Instructions: administer 2 - 3 hours before bedtime cholecalciferol (vitamin D3) 50 mcg (2,000 unit) tablet 50 mcg PO DAILY loperamide 2 mg capsule 2 mg PO UD PRN (Reason: Diarrhea) Rx Instructions: 2-8 mg orally BID PRN pateint tapers for ostomy output PRN; gabapentin 100 mg capsule 100 mg PO BID Qty: 60 5RF carvedilol [Coreg] 6.25 mg tablet 6.25 mg PO BID Qty: 60 5RF Rx Instructions: must administer with a meal/food bumetanide 2 mg tablet 2 mg PO BID Qty: 60 2RF (DME) Wheeled Walker [facility] See Rx Instructions .MEDSUPPLY Qty: 1 0RF Rx Instructions: As directed fluticasone propionate 50 mcg/actuation spray,suspension 2 spray intranasal QAM PRN (Reason: sinus congestion) Qty: 32 5RF Kelp (iodine) 150 mcg tablet 150 mcg PO QAM acetaminophen 500 mg capsule 1,000 mg PO Q8H Rx Instructions: Take 3 times per day to lessen pain. lysine 500 mg Tablet 500 mg PO QAM atorvastatin 10 mg tablet 10 mg PO 3XWK Rx Instructions: MON, WED, FRI. calcium carbonate 300 mg (750 mg) Tablet,Chewable 300 mg PO BID Vitamin C 100 mg Tablet 100 mg PO DAILY epinephrine [EpiPen] 0.3 mg/0.3 mL auto-injector 0.3 mg IM DIRECTED PRN (Reason: anaphylaxis) Rx Instructions: for 2 doses oxycodone 10 mg tablet 10 mg PO Q4H PRN (Reason: pain) levothyroxine [Synthroid] 75 mcg tablet 75 mcg PO DAILYBB diclofenac sodium [Voltaren Arthritis Pain] 1 % gel 4 g EXT BID PRN (Reason: Pain) Rx Instructions: APPLY TO LOWER BACK AND LEFT HIP, NEEDED FOR PAIN Discontinued clindamycin HCl 300 mg capsule 600 mg PO UD PRN (Reason: dental procedure) Rx Instructions: take one hour prior to dental appointment Admission Data Admit Date/Time: 03/09/25 22:24 Attending Provider: Miguel Valdez Admit Provider: Jamal Wright Primary Care Provider: Mychal Hall Other Providers: Jamal Wright; Holden Gonzalez Hospital Stay Data Consultations 03/09/25 21:58 ED Decision to Admit Stat 03/10/25 07:51 Consult Nephrology Routine Diagnostic Imagining Performed 03/09/25 20:34 CT abd pelvis wo con Stat 03/09/25 22:25 US RUQ [US liver] Stat Pending Results Patient Have Any Pending Studies at Discharge: No Discharge Instructions Given to Patient (Per Discharging Provider) Follow up with PMD in 2 weeks Total Time Total Time Spent Total Time Spent (In Minutes): 50 Coding Level of Care Code 96097 INP/OBS DISCH >30 MIN Diagnoses Transaminitis R74.01 Weakness R53.1 Acute on chronic diastolic (congestive) heart failure I50.33 SONI (acute kidney injury) N17.9
[2025-03-13 10:57] VITALS: BP 164/78; PULSE 73; RESP 18; TEMP 97.7; O2SAT 94
--- NOTE | 2025-03-15 06:48 | Coding Query ---
CODING QUERY To promote full compliance with coding requirements relating to patient care, provider participation is requested in all cases of awning maker and installer uncertainty. Please assist us with the question(s) below: Coding Question(s): There is documentation of a history of Acute on chronic diastolic (congestive) heart failure, and documentation in the record of Acute on chronic diastolic (congestive) heart failure through the record and on the Discharge Summary, and documentation also under that of, "Clinically volume contracted with the exception of ankle edema suspected due to venous stasis", and documentation of Bumex on hold. Just to be sure, please specify below, regarding Acute on Chronic Diastolic Congestive Heart Failure. ( ) Acute on Chronic Diastolic Congestive Heart Failure was treated (x ) Chronic Diastolic Congestive Heart Failure only was treated ( ) Other: Please Specify Physician's Response(s): Thank you Krystal King Principal Diagnosis: "that condition established after study, to be chiefly responsible for occasioning the admission of the patient to the hospital for care." Co-Existing Principal Diagnosis: "when two or more diagnoses equally meet the criteria for principal diagnosis as determined by the circumstances of admission, diagnostic work up, and/or therapy provided, and the Alphabetic Index, Tabular List, or another coding guideline does not provide sequencing direction, any one of the diagnoses may be sequenced first." "When the physician has documented what appears to be a current diagnosis in the body of the record, but has not included the diagnosis in the final diagnostic statement, the physician should be asked whether the diagnosis should be added." (Source Coding Clinic 2 QTR90. p3-4) JAVIER
--- NOTE | 2025-03-15 06:51 | Coding Query ---
CODING QUERY To promote full compliance with coding requirements relating to patient care, provider participation is requested in all cases of icd 9 coder uncertainty. Please assist us with the question(s) below: Coding Question(s): Transaminitis is documented and as of the Discharge Summary, there is documentation of, "Transaminitis: CTA/P without evidence of CBD dilation or gallbladder abnormality. DDx includes shock liver/hypoperfusion Bladder ultrasound ordered to follow-up on obstructive pattern LFTs If LFTs are rising follow-up with MRCP. Does have surgical roberto in place however should be MRI safe if needed. [place] are due to be removed next week Trend LFTs - LFTs trending downward". Please specify below, regarding the most likely cause(s) of Transaminitis: (x ) Shock Liver/hypoperfusion ( ) Other: Please Specify ( ) Unknown most likely cause Physician's Response(s): Thank you Krystal King Principal Diagnosis: "that condition established after study, to be chiefly responsible for occasioning the admission of the patient to the hospital for care." Co-Existing Principal Diagnosis: "when two or more diagnoses equally meet the criteria for principal diagnosis as determined by the circumstances of admission, diagnostic work up, and/or therapy provided, and the Alphabetic Index, Tabular List, or another coding guideline does not provide sequencing direction, any one of the diagnoses may be sequenced first." "When the physician has documented what appears to be a current diagnosis in the body of the record, but has not included the diagnosis in the final diagnostic statement, the physician should be asked whether the diagnosis should be added." (Source [facility] 2 QTR90. p3-4) JAVIER
== END 2025-03-13 13:58 | disposition home health service (06) | DRG 682 ==
LOC: SUATTDRO → ED 19:42 → 2N 22:24 → SUATTDRO 22:24 → 2N 23:20